=== PATIENT | male | born 1950 | race Caucasian/White ===

== ENCOUNTER → 2020-02-22 09:05 | Outpatient (CLI) | payer MEDICARE, OTHER, SELFPAY ==
[2020-02-22 09:43] LABS: Absolute Lymphocyte Count 2.15 X10^3/uL (0.83-4.51); Absolute Neutrophil Count 10.1 X10^3/uL (2.0-7.7); Basophil# 0.04 X10^3/uL; Basophil% 0.3 % (0-1); Eosinophil# 0.24 X10^3/uL; Eosinophils% 1.8 % (0-5); Hematocrit 40.4 % (40-54); Hemoglobin 12.5 g/dL (13.0-16.5); Lymphocyte # 2.15 X10^3/ul (4.0); Lymphocyte % 16.1 % (19-41); Mean Corp Hgb Conc 30.9 g/dL (32-36); Mean Corpuscular Volume 80.6 fL (80-94); Mean Platelet Vol. 9.8 fl (6.2-12.0); Monocyte# 0.79 X10^3/uL; Monocyte% 5.9 % (0-10); NRBC Flagged by Analyzer 0 % (0-5); Neutrophil # 10.07 X10^3/uL (2.7-7.7); Neutrophil % 75.3 % (47-70); Platelet Count 373 K/mm3 (150-450); RBC Distribution Width CV 14.2 % (11.6-14.6); RBC Distribution Width SD 40.6 fl (35.1-43.9); Red Blood Count 5.01 M/mm3 (4.6-6.2); White Blood Count 13.4 K/mm3 (4.4-11.0)
[2020-02-22 10:00] LABS: Hemoglobin A1c 10.8 % (3.8-5.6)
[2020-02-22 10:22] LABS: ALB/GLOB Ratio 0.9 RATIO (0.9-2.4); AST(SGOT) 11 U/L (15-37); Alanine Aminotransfer ALT/SGPT 19 U/L (16-61); Albumin, Serum 3.7 g/dL (3.2-5.0); Alkaline Phosphatase 84 U/L (45-117); Anion Gap 6 (5-15); BUN 11 mg/dL (7-18); BUN/Creat Ratio 12.6 RATIO (10-20); Calcium,Total 10.1 mg/dL (8.5-10.1); Chloride 100 mmol/L (98-107); Cholesterol 144 mg/dL (200); Creatinine, Serum 0.88 mg/dL (0.70-1.30); EST Glomerular Filtration Rate 92 mL/min (>60); Est Glom Filt Rate - Afr Amer 111 mL/min (>60); Globulin 3.9 g/dL (2.2-4.2); Glucose 173 mg/dL (74-106); High Density Lipoprotein 28 mg/dL; Potassium 3.6 mmol/L (3.5-5.1); Protein, Total 7.6 g/dL (6.4-8.2); Sodium Level 137 mmol/L (136-145); Triglycerides 153 mg/dL; Very Low Density Lipoprotein 31 mg/dL (5-40)
[2020-02-22 10:24] LABS: Vitamin D,25 Hydroxy 65.2 ng/mL
== END ==
PROVIDERS: Referring Provider Family Medicine; Visit Provider Family Medicine
DX: D64.9 Anemia, unspecified (principal); E11.65 Type 2 diabetes mellitus with hyperglycemia; I10 Essential (primary) hypertension; E55.9 Vitamin D deficiency, unspecified; E78.5 Hyperlipidemia, unspecified
CPT/HCPCS: 36415; 80053; 80061; 82306; 83036; 85025

== ENCOUNTER → 2020-06-10 09:00 | Outpatient (CLI) | payer MEDICARE, OTHER, SELFPAY ==
[2020-06-10 10:15] LABS: Absolute Lymphocyte Count 1.81 X10^3/uL (0.83-4.51); Absolute Neutrophil Count 10.9 X10^3/uL (2.0-7.7); Basophil# 0.04 X10^3/uL; Basophil% 0.3 % (0-1); Eosinophil# 0.22 X10^3/uL; Eosinophils% 1.6 % (0-5); Hematocrit 39.7 % (40-54); Hemoglobin 12.1 g/dL (13.0-16.5); Lymphocyte # 1.81 X10^3/ul (0.83-4.51); Lymphocyte % 13.1 % (19-41); Mean Corp Hgb Conc 30.5 g/dL (32-36); Mean Corpuscular Hgb 24.8 pg (27.0-32.0); Mean Corpuscular Volume 81.5 fL (80-94); Mean Platelet Vol. 10.1 fl (6.2-12.0); Monocyte# 0.79 X10^3/uL; Monocyte% 5.7 % (0-10); NRBC Flagged by Analyzer 0 % (0-5); Neutrophil # 10.94 X10^3/uL (2.7-7.7); Neutrophil % 78.9 % (47-70); Platelet Count 397 K/mm3 (150-450); RBC Distribution Width CV 14.5 % (11.6-14.6); Red Blood Count 4.87 M/mm3 (4.6-6.2); White Blood Count 13.9 K/mm3 (4.4-11.0)
[2020-06-10 10:33] LABS: Hemoglobin A1c 10.3 % (3.8-5.6)
[2020-06-10 10:47] LABS: Glucose 161 mg/dL (74-106)
== END ==
DX: I10 Essential (primary) hypertension (principal); E11.65 Type 2 diabetes mellitus with hyperglycemia; D64.9 Anemia, unspecified
CPT/HCPCS: 36415; 82947; 83036; 85025

== ENCOUNTER 2021-01-26 21:38 | Inpatient (IN) | payer MEDICARE, OTHER, SELFPAY ==
[2021-01-26 21:39] VITALS: BP 131/83; PULSE 114; RESP 17; TEMP 35.7; BMI 36.1
--- NOTE | 2021-01-26 22:04 | EKG12_ITS ---
Test Reason : HYPOGLYCEMIA Blood Pressure : / mmHG Vent. Rate : 113 BPM Atrial Rate : 150 BPM P-R Int : 000 ms QRS Dur : 086 ms QT Int : 326 ms P-R-T Axes : 000 074 -25 degrees QTc Int : 447 ms Atrial fibrillation with premature ventricular or aberrantly conducted complexes Abnormal ECG Confirmed by KACEY MAYEN, LEW ([id number]), editor producer JOSE LATHAM ([id number]) on 01/27/2021 11:39:48 AM Referred By: BB Confirmed By:LEW ERAZO MD
[2021-01-26 22:05] LABS: Bedside Glucose 118 mg/dL (70-110)
--- NOTE | 2021-01-26 22:05 | EX.ED.DYSGE1 ---
HPI History of Present Illness Chief Complaint: Hypoglycemia Informant: patient, family and EMS Narrative Narrative: 71-year-old patient who lives alone and has been feeling generally weak for the last couple weeks. He states he has not been feeling well, has had difficulty urinating often, where he feels like he needs to go and sometimes has difficulty getting urine out and other times goes less than he expects, resulting in him going more frequently. As a result his appetite and p.o. intake have been poor. Daughter states he has been unintentionally losing weight. This is all been going on for the last couple weeks, but in addition to this for the last 2 or 3 months he has been having palpitations off and on without chest discomfort, dyspnea, lightheadedness, syncope. He was supposed to go to the hospital to get checked out today, and since he did not respond to phone calls from his daughter, she went 1.5 hours from her house to where he is to check on him and he was unresponsive. EMS was called, his blood sugar was 37, they gave him glucagon and IV dextrose and now he is alert and oriented, awake. He states he is on Glucophage and glimepiride, he has taken his medications as prescribed, he takes his glimepiride once a day and he took it this morning. He states he has not eaten anything tonight or since the morning. He states he goes to the local [facility] clinic infrequently and does not have a PCP. He is vaccinated against COVID-19, and has had no contact with anyone with Covid recently that he knows of. Denies any recent cough or fever/chills. Also patient states on the way here, his right eye started bothering him and it feels like there is something in it, he does not know if or what happened to it. [facility] Medical History (Updated 01/27/21 @ 06:[address] Neo Leone MD) Diabetes Hypertension Home Medications ferrous sulfate 325 mg PO DAILY 01/26/21 [History Last Taken Unknown] glimepiride 8 mg PO DAILY 01/26/21 [History Last Taken Unknown] hydrochlorothiazide 50 mg PO DAILY 01/26/21 [History Last Taken Unknown] lisinopril 20 mg PO BID 01/26/21 [History Last Taken Unknown] metformin 1,000 mg PO BID 01/26/21 [History Last Taken Unknown] metoprolol tartrate 100 mg PO BID 01/26/21 [History Last Taken Unknown] pravastatin 20 mg PO DAILY 01/26/21 [History Last Taken Unknown] Allergy/AdvReac Type Severity Reaction Status Date / Time Unable to Assess Allergy Verified 01/26/21 21:44 Surgical History (Updated 01/27/21 @ 05:[address] Yogi Sneed MD) History of cataract surgery Social History Smoking Status: Former smoker ROS ROS ED Constitutional Constitutional ED: Reports anorexia, weakness and weight loss; Denies chills or fever(s) Eyes Eyes: Reports eye pain and foreign body; Denies change in vision or diplopia ENT ENT ED: Denies rhinorrhea or sore throat Cardiovascular Cardiovascular: Reports palpitations; Denies chest pain Respiratory/Chest Respiratory/Chest: Denies cough or dyspnea Gastrointestinal Gastrointestinal: Denies abdominal pain, diarrhea, nausea or vomiting Genitourinary Genitourinary ED: Reports difficulty urinating; Denies dysuria or hematuria Musculoskeletal Musculoskeletal: Denies back pain or neck pain Integumentary Denies abscess or rash Neurologic Neurologic: Denies headache(s), paresthesias or weakness Psychiatric Psychiatric: Denies anxiety or suicidal thoughts EXAM Physical Exam Const Vital Signs: 01/26/21 21:39 01/26/21 22:18 01/26/21 23:30 Temperature 96.2 F L Temperature Source Pulse Rate 114 H 119 H Respiratory Rate 17 18 Blood Pressure 131/83 H 84/64 L Blood Pressure Mean 99 70 Pulse Ox 92 Oxygen Delivery Method Room Air Nasal Cannula Room Air 01/27/21 00:24 01/27/21 01:33 01/27/21 02:00 Temperature 97.9 F 97.9 F 97.8 F Temperature Source Oral Oral Oral Pulse Rate 117 H 120 H 117 H Respiratory Rate 20 H 22 H 20 H Blood Pressure 89/43 L 102/89 H 78/63 L Blood Pressure Mean 58 93 68 Pulse Ox 93 95 96 Oxygen Delivery Method Room Air Room Air Room Air 01/27/21 04:01 01/27/21 05:10 01/27/21 05:20 Temperature 97.8 F Temperature Source Temporal Pulse Rate 119 H 127 H 120 H Respiratory Rate 17 22 H 16 Blood Pressure 172/140 H 79/52 L 82/51 L Blood Pressure Mean 150 61 61 Pulse Ox 99 Oxygen Delivery Method Room Air 01/27/21 05:50 Temperature 98.2 F Temperature Source Oral Pulse Rate 118 H Respiratory Rate 24 H Blood Pressure 81/58 L Blood Pressure Mean 65 Pulse Ox 90 Oxygen Delivery Method Room Air Positive well nourished and well developed General Appearance ED: well developed and NAD HEENT Reports dry mucous membranes normocephalic and atraumatic Mouth ED: Yes dry mucous membranes Mouth: dry mucous membranes Throat: posterior oropharynx normal Eyes PERRL and EOMs intact bilaterally Neck full ROM, no lymphadenopathy, supple, no meningeal signs and no JVD Resp normal respiratory effort and clear to auscultation bilaterally Cardio no murmurs Rate: tachycardic Rhythm: abnormal rhythm irregularly irregular GI non-tender and non-distended Auscultation: normoactive bowel sounds Palpation: soft Back/Spine no CVA tenderness General Back: other FROM Extremity normal to inspection General Extremety ED: Negative for edema, pulses abnormal or tenderness General Extremity: Negative for edema or pulses abnormal Neuro oriented x3, CN's II-XII intact bilaterally and no sensory deficits noted Sensorium / Orientation: awake and alert Motor Exam: strength 5/5 throughout Skin no rashes or lesions noted and no wounds MDM MDM MDM Narrative Medical decision making narrative: Patient has a significant leukocytosis, however his chest x-ray is clear, 1 view on my interpretation, patient has not yet urinated. Given his lower abdominal discomfort and tenderness and urinary symptoms I am suspicious of a possible urinary tract infection but need a specimen prior to starting antibiotics given that he qualifies for sepsis. Given his renal failure, we did not give him a lot of IV fluids. He is clinically and hemodynamically stable, however is hyperkalemic from his acute renal failure which he does not have a known history of. I treated his hyperkalemia with insulin, glucose, albuterol, and discussed with nephrology Dr. Covarrubias, who advised placing a Cuello and he agrees that he will not require emergency dialysis tonight, he will see him first thing in the morning. Will discuss with hospitalist for admission. Patient's urinalysis returned looking infected, which would explain his suprapubic tenderness. Rocephin ordered. Similar to this timeframe, his blood pressure returned lower, 89/43, patient still mentating well mildly tachycardic in atrial fibrillation that is new for him. We bolused him with more fluid, watching his respiratory status closely. His blood pressure improved with this to 102/89, but had a couple of transient drops to the 80s. While in the emergency department he did not require pressors, as he did respond to fluids but given multiple episodes of hypotension, central line was placed in case pressors do become needed. After that he remained hypertensive and keenly alert until we sat him on the side of the bed to do a slit-lamp exam, then remained borderline 82/51 although he is keenly alert and mentating well. His repeat lactate came back down to normal, 1.0. He was given IV fluid boluses, however we stop short of 30 cc/kg mainly because of his uremia and renal failure, we were given him fluid cautiously so as to prevent further third spacing and pulmonary edema, he already had evidence of third spacing in his extremities prior to treating him with fluids. Bacitracin ophthalmic ointment placed in his right eye for the abrasion which can be monitored clinically, he can follow-up in 4-5 days if either still having eye pain or trouble with vision. With pressure remaining in 80's now and the fact that pt was responding to fluids each time he was hypotensive, another liter of normal saline is bolused. With less than 25% of the liter still left, his pressure is 81, and Levophed is being started as a result. Lab Data Attestation: I reviewed the patient's lab results. Labs: Laboratory Results - last 24 hr 01/26/21 01/26/21 01/26/21 21:45 21:45 21:58 WBC 39.4 H* RBC 4.62 Hgb 12.5 L Hct 38.5 L MCV 83.3 MCH 27.1 MCHC 32.5 RDW Std Deviation 44.5 H RDW Coeff of Flaco 14.7 H Plt Count 490 H MPV 9.3 Immature Gran % (Auto) 2.100 H Neut % (Auto) 91.9 H Lymph % (Auto) 2.3 L Bonner % (Auto) 3.6 Eos % (Auto) 0.0 Baso % (Auto) 0.1 Absolute Neuts (auto) 36.2 H Absolute Lymphs (auto) 0.90 Nucleated RBC % 0 Differential Comment SEE COMMENTS Diff Path Review May foll Platelet Estimate SLT INC RBC Morphology NORM C+C PT INR APTT Sodium 128 L Potassium 5.5 H Chloride 95 L Carbon Dioxide 15.0 L Anion Gap 18 H BUN 116 H* Creatinine 7.75 H* Estim Creat Clear Calc 8.29 Est GFR (MDRD) Af Amer 9 L Est GFR (MDRD) Non-Af 7 L BUN/Creatinine Ratio 15.0 Glucose 125 H Lactic Acid Calcium 10.3 H Magnesium Total Bilirubin 1.00 AST 26 ALT 28 Alkaline Phosphatase 129 H Troponin I High Sens 25 Total Protein 7.9 Albumin 2.3 L Globulin 5.6 H Albumin/Globulin Ratio 0.4 L Urine Color Urine Clarity Urine pH Ur Specific [place] Urine Protein Urine Glucose (UA) Urine Ketones Urine Occult Blood Urine Nitrite Urine Bilirubin Urine Urobilinogen Ur Leukocyte Esterase Urine RBC Urine WBC Ur Squamous Epith Cells Urine Bacteria Urine Mucus POC Glucose 118 H 01/26/21 01/26/21 01/27/21 22:45 22:45 00:14 WBC RBC Hgb Hct MCV MCH MCHC RDW Std Deviation RDW Coeff of Flaco Plt Count MPV Immature Gran % (Auto) Neut % (Auto) Lymph % (Auto) Bonner % (Auto) Eos % (Auto) Baso % (Auto) Absolute Neuts (auto) Absolute Lymphs (auto) Nucleated RBC % Differential Comment Diff Path Review Platelet Estimate RBC Morphology PT 21.2 H INR 1.9 APTT 43.7 H Sodium Potassium Chloride Carbon Dioxide Anion Gap BUN Creatinine Estim Creat Clear Calc Est GFR (MDRD) Af Amer Est GFR (MDRD) Non-Af BUN/Creatinine Ratio Glucose Lactic Acid 2.2 H* Calcium Magnesium Total Bilirubin AST ALT Alkaline Phosphatase Troponin I High Sens Total Protein Albumin Globulin Albumin/Globulin Ratio Urine Color Brown Urine Clarity Turbid Urine pH 6.0 Ur Specific [place] 1.025 Urine Protein 100 H Urine Glucose (UA) Normal Urine Ketones 5 H Urine Occult Blood 150 H Urine Nitrite Negative Urine Bilirubin Negative Urine Urobilinogen Normal Ur Leukocyte Esterase 500 H Urine RBC > 100 SEEN Urine WBC >100 SEEN Ur Squamous Epith Cells 0 SEEN Urine Bacteria 3+ Urine Mucus 0 SEEN POC Glucose 01/27/21 01/27/21 01/27/21 03:25 04:48 04:50 WBC RBC Hgb Hct MCV MCH MCHC RDW Std Deviation RDW Coeff of Flaco Plt Count MPV Immature Gran % (Auto) Neut % (Auto) Lymph % (Auto) Bonner % (Auto) Eos % (Auto) Baso % (Auto) Absolute Neuts (auto) Absolute Lymphs (auto) Nucleated RBC % Differential Comment Diff Path Review Platelet Estimate RBC Morphology PT INR APTT Sodium 133 L Potassium 4.3 Chloride 101 Carbon Dioxide 17.0 L Anion Gap 15 BUN 108 H* Creatinine 7.25 H Estim Creat Clear Calc 8.86 Est GFR (MDRD) Af Amer 10 L Est GFR (MDRD) Non-Af 8 L BUN/Creatinine Ratio 14.9 Glucose 45 L Lactic Acid 1.0 Calcium 8.7 Magnesium Total Bilirubin AST ALT Alkaline Phosphatase Troponin I High Sens Total Protein Albumin Globulin Albumin/Globulin Ratio Urine Color Urine Clarity Urine pH Ur Specific [place] Urine Protein Urine Glucose (UA) Urine Ketones Urine Occult Blood Urine Nitrite Urine Bilirubin Urine Urobilinogen Ur Leukocyte Esterase Urine RBC Urine WBC Ur Squamous Epith Cells Urine Bacteria Urine Mucus POC Glucose 28 L* 01/27/21 01/27/21 04:50 05:17 WBC RBC Hgb Hct MCV MCH MCHC RDW Std Deviation RDW Coeff of Flaco Plt Count MPV Immature Gran % (Auto) Neut % (Auto) Lymph % (Auto) Bonner % (Auto) Eos % (Auto) Baso % (Auto) Absolute Neuts (auto) Absolute Lymphs (auto) Nucleated RBC % Differential Comment Diff Path Review Platelet Estimate RBC Morphology PT INR APTT Sodium Potassium Chloride Carbon Dioxide Anion Gap BUN Creatinine Estim Creat Clear Calc Est GFR (MDRD) Af Amer Est GFR (MDRD) Non-Af BUN/Creatinine Ratio Glucose Lactic Acid Calcium Magnesium 1.6 Total Bilirubin AST ALT Alkaline Phosphatase Troponin I High Sens Total Protein Albumin Globulin Albumin/Globulin Ratio Urine Color Urine Clarity Urine pH Ur Specific [place] Urine Protein Urine Glucose (UA) Urine Ketones Urine Occult Blood Urine Nitrite Urine Bilirubin Urine Urobilinogen Ur Leukocyte Esterase Urine RBC Urine WBC Ur Squamous Epith Cells Urine Bacteria Urine Mucus POC Glucose 61 L Radiography Chest X-Ray - ED: 1 View, Read by ED Physician and No Acute Disease Diagnostic Testing: Clinical Impression(s) from Imaging Studies Chest X-Ray 01/26/21 22:55 IMPRESSION: No radiographic evidence of acute cardiopulmonary disease. Electronically Signed: Davis Blood MD at 1:02 EST Tel , Service support , Chest X-Ray 01/27/21 02:52 IMPRESSION: Appropriate positioning of right-sided central venous catheter without evidence for pneumothorax. Electronically Signed: Dixie Luz MD at 3:58 EST , Service support , Rhythm Strip Rhythm Strip: A-fib Rate: 110 Ectopy: PVC(s) EKG Initial EKG: Attestation: I personally reviewed and interpreted this EKG as follows: Interpretation: No Acute Injury Pattern and Atrial Fibrillation Comments: freq PVCs early transition. mildly peaked Ts. narrow QRS. Prior: No Prior Procedures Other Procedures Procedure(s): Central line placement: After informed consent discussing risk and benefits from patient and daughter, right subclavian vein area was prepped and draped in a sterile fashion, and found on second attempt using a finder needle after using 4 cc local 1% lidocaine for anesthesia locally. Triple-lumen catheter 20 cm placed via modified Seldinger technique, there were no complications and the line placement was tolerated well by the patient. All 3 ports desmond back dark red blood nonpulsatile, flushed easily. Confirmed good placement with chest x-ray. No complications. Slit lamp exam/foreign material removal right eye: After topical tetracaine and staining with fluorescein, central broad-based corneal abrasion is noted along with some mucus versus loosened corneal cells that were removed gently from conjunctival surface with sterile cotton swab. Critical Care Time Critical Care Time: Yes Critical care time (excluding procedures): 75-104 minutes (75 min), Including time spent:, Discussing w/Patient &/or Family/Insole Tack Puller Hand, Discussing w/Consultants, Arranging Admission or Transfer and Performing Direct Patient Care at Bedside Discharge Plan Dx/Rx/DC Orders Clinical Impression: Septic shock, Acute renal failure, Uremia of renal origin, Hyperkalemia, diminished renal excretion, Acute hyponatremia, Hypoglycemia associated with type 2 diabetes mellitus, Sepsis secondary to UTI, Atrial fibrillation, Transient hypotension, Abrasion of cornea, right Disposition Disposition: [facility]
[2021-01-26 22:11] LABS: Absolute Neutrophil Count 36.2 X10^3/uL (2.0-7.7); Basophil# 0.02 X10^3/uL; Basophil% 0.1 % (0-1); Eosinophil# 0.01 X10^3/uL; Hematocrit 38.5 % (40-54); Hemoglobin 12.5 g/dL (13.0-16.5); Lymphocyte % 2.3 % (19-41); Mean Corp Hgb Conc 32.5 g/dL (32-36); Mean Corpuscular Hgb 27.1 pg (27.0-32.0); Mean Corpuscular Volume 83.3 fL (80-94); Mean Platelet Vol. 9.3 fl (6.2-12.0); Monocyte# 1.42 X10^3/uL; Monocyte% 3.6 % (0-10); NRBC Flagged by Analyzer 0 % (0-5); Neutrophil # 36.23 X10^3/uL (2.7-7.7); Neutrophil % 91.9 % (47-70); POSITIVE COUNT YES; POSITIVE DIFFERENTIAL YES; POSITIVE MORPHOLOGY YES; Platelet Count 490 K/mm3 (150-450); RBC Distribution Width CV 14.7 % (11.6-14.6); RBC Distribution Width SD 44.5 fl (35.1-43.9); Red Blood Count 4.62 M/mm3 (4.6-6.2)
[2021-01-26 22:14] LABS: Differential Indicated SCAN CRITERIA MET
[2021-01-26 22:16] LABS: White Blood Count 39.4 K/mm3 (4.4-11.0)
[2021-01-26 22:38] LABS: Differential Comment SEE COMMENTS; Platelet Estimate SLT INC (ADEQ); Red Cell Morphology NORM C+C NORMAL (NORM C&C)
[2021-01-26 22:39] LABS: ALB/GLOB Ratio 0.4 RATIO (0.9-2.4); AST(SGOT) 26 U/L (15-37); Alanine Aminotransfer ALT/SGPT 28 U/L (16-61); Albumin, Serum 2.3 g/dL (3.2-5.0); Alkaline Phosphatase 129 U/L (45-117); Anion Gap 18 (5-15); BUN 116 mg/dL (7-18); Calcium,Total 10.3 mg/dL (8.5-10.1); Chloride 95 mmol/L (98-107); Creatinine, Serum 7.75 mg/dL (0.70-1.30); EST Glomerular Filtration Rate 7 mL/min (>60); Est Glom Filt Rate - Afr Amer 9 mL/min (>60); Estimated Creatinine Clearance 8.29 ml/min; Globulin 5.6 g/dL (2.2-4.2); Glucose 125 mg/dL (74-106); Potassium 5.5 mmol/L (3.5-5.1); Protein, Total 7.9 g/dL (6.4-8.2); Sodium Level 128 mmol/L (136-145); Troponin-I HS 25 pg/mL (3.0-78.0)
--- NOTE | 2021-01-26 22:55 | RAD_ITS ---
EXAM: XR CHEST, 1 VIEW CLINICAL INDICATION: weakness TECHNIQUE: Frontal view of the chest. This report was created using [employer] report generation technology. COMPARISON: None. FINDINGS: LUNGS AND PLEURAL SPACES: Unremarkable. No consolidation or edema. No pneumothorax. No effusion. HEART: Unremarkable. Cardiac silhouette not enlarged. MEDIASTINUM: Central airways and mediastinal contour are unremarkable. BONES/JOINTS: Degenerative changes of the acromioclavicular joints and spine. SOFT TISSUES: Unremarkable. RAD/Chest 1 View (Portable) IMPRESSION: No radiographic evidence of acute cardiopulmonary disease. Electronically Signed: Davis Blood MD at 1:02 EST Tel , Service support ,
[2021-01-26 23:09] LABS: International Normalized Ratio 1.9; Prothrombin Time (Protime)PT. 21.2 SECONDS (11.7-14.9)
[2021-01-26 23:10] LABS: Partial Thromboplast Time 43.7 Seconds (24.1-36.2)
[2021-01-26 23:30] VITALS: BP 84/64; PULSE 119; RESP 18; O2SAT 92
[2021-01-26 23:31] LABS: Lactic Acid 2.2 mmol/L (0.4-1.9)
[2021-01-27] VITALS (42 sets, daily range): BP systolic 76–172; BP diastolic 37–140; PULSE 110–127; RESP 16–29; TEMP 36.4–37.7; O2SAT 85–99; BMI 34.7
[2021-01-27] MEDS: Dextrose 50%-Water 25 GM/50 ML DISP.SYRIN IV ×3 (00:21→08:24)
[2021-01-27] MEDS: 0.9% Normal Saline 1,000 ML 250 ML IV ×2 (00:22→04:58)
[2021-01-27] MEDS: Insulin Lispro 10 UNIT in Syringe 0 ML 6 UNIT IV (00:22)
[2021-01-27 00:27] LABS: Mucous, Urine 0 SEEN /hpf (<or=2+); Squamous Epithelial Cells - UA 0 SEEN /hpf (0-5)
[2021-01-27 00:28] LABS: Color, Urine Brown (Yellow); Glucose, Dipstick Normal (Normal); Ketone-Dipstick 5 mg/dl (Negative); Leukocyte Esterase-Dipstick 500 /ul (Negative); Nitrite-Dipstick Negative (Negative); Occult Blood-Urine 150 /ul (Negative); Protein-Dipstick 100 mg/dl (Negative); Specific Gravity, Urine 1.025 (1.002-1.030); Urine Bilirubin Dipstick Negative (Negative); Urine Clarity Turbid (Clear); Urine Urobilinogen Normal (Normal)
[2021-01-27 00:50] LABS: Bacteria 3+ /hpf (None Seen); Red Blood Cells-Urine > 100 SEEN /hpf (0-5); White Blood Cells >100 SEEN /hpf (0-5)
[2021-01-27] MEDS: Ceftriaxone 1 GM/50 ML BAG IV ×2 (01:07→12:06)
[2021-01-27] MEDS: 0.9% Normal Saline 1,000 ML 999 ML IV ×3 (01:07→06:43)
--- NOTE | 2021-01-27 02:52 | RAD_ITS ---
STUDY: X-RAY CHEST REASON FOR EXAM: Male, 71 years old patient with central venous line placement. TECHNIQUE: Single AP portable view of the chest. COMPARISON: Chest radiograph dated 01/26/2021. FINDINGS: Right-sided central venous catheter is present with subclavian vein and tip of the catheter is in the superior vena cava. The lungs are clear and expanded. There is no demonstrated pleural abnormality. There is mild cardiac enlargement. Normal mediastinum and medardo. There is prominence of the pulmonary hilar arteries without peripheral pulmonary vascular congestion, suggesting pulmonary hypertension. There is atherosclerotic tortuosity of the aortic arch and descending thoracic aorta. Normal visualized thoracic spine. Normal visualized ribs, clavicles, and shoulders. There is no demonstrated abnormality of the visualized soft tissue structures of the upper abdomen. RAD/CXR for Line Placement IMPRESSION: Appropriate positioning of right-sided central venous catheter without evidence for pneumothorax. Electronically Signed: Dixie Luz MD at 3:58 EST , Service support ,
[2021-01-27 02:54] LABS: Reflex Lactate? Y
[2021-01-27 04:55] LABS: Bedside Glucose 28 mg/dL (70-110)
[2021-01-27] MEDS: Tetracaine 0.5% Ophthalmic Bottle 1 DRP RIGHT EYE (05:13)
[2021-01-27] MEDS: Fluorescein 1 MG STRIP 1 STRIP RIGHT EYE (05:13)
[2021-01-27 05:26] LABS: Bedside Glucose 61 mg/dL (70-110)
[2021-01-27 05:32] LABS: Anion Gap 15 (5-15); BUN 108 mg/dL (7-18); BUN/Creat Ratio 14.9 RATIO (10-20); Calcium,Total 8.7 mg/dL (8.5-10.1); Chloride 101 mmol/L (98-107); Creatinine, Serum 7.25 mg/dL (0.70-1.30); EST Glomerular Filtration Rate 8 mL/min (>60); Est Glom Filt Rate - Afr Amer 10 mL/min (>60); Estimated Creatinine Clearance 8.86 ml/min; Glucose 45 mg/dL (74-106); Potassium 4.3 mmol/L (3.5-5.1); Sodium Level 133 mmol/L (136-145)
--- NOTE | 2021-01-27 05:37 | HP.PCM.HOS_ITS ---
HPI - General General Date of Admission: 01/27/21 HPI Narrative BLAYNE ABDI, is a 71 M with a significant history of diabetes mellitus and hypertension who presents to emergency department with unresponsiveness. Reportedly graphics coordinator broke into his home. He was found to have passed out and paramedics brought him to the hospital. Reportedly his blood glucose was 37 and he was given dextrose and glucagon which he responded to. He reports a 2 to 3- week history of diarrhea. He report that in the day he has between 4-6 loose stools are. Also he reports urinary retention causing him to frequently try and urinates. He reports poor appetite going of about 3 weeks. He reports fatigue and weakness. Reports subjective fever. He reports chills and malaise. He has lost about 20 pounds in the past 3 weeks. He has poor appetite. FORMERLY [facility], [facility] Medical History (Updated 01/27/21 @ 06:[address] Neo Leone MD) Diabetes Hypertension Home Medications ferrous sulfate 325 mg PO DAILY 01/26/21 [History Last Taken Unknown] glimepiride 8 mg PO DAILY 01/26/21 [History Last Taken Unknown] hydrochlorothiazide 50 mg PO DAILY 01/26/21 [History Last Taken Unknown] lisinopril 20 mg PO BID 01/26/21 [History Last Taken Unknown] metformin 1,000 mg PO BID 01/26/21 [History Last Taken Unknown] metoprolol tartrate 100 mg PO BID 01/26/21 [History Last Taken Unknown] pravastatin 20 mg PO DAILY 01/26/21 [History Last Taken Unknown] Allergy/AdvReac Type Severity Reaction Status Date / Time Unable to Assess Allergy Verified 01/26/21 21:44 Surgical History (Updated 01/27/21 @ 05:[address] Yogi Sneed MD) History of cataract surgery Social History Smoking Status: Former smoker ROS ROS Narrative Constitutional: Reports subjective fever and chills. Reports fatigue, anorexia and change in weight. He has lost about 20 pounds in 3 weeks. Eyes: Reports erythema of right eye. HEENT: Denies abnormal hearing, dysphagia, ear pain, epistaxis, headache(s), hearing loss, nasal congestion, nasal discharge, post nasal drip, sinus pressure, sore throat or other Cardiovascular: Reports intermittent palpitations. Denies dyspnea on exertion, orthopnea and paroxysmal nocturnal dyspnea Respiratory/Chest: Denies cough, excessive phlegm production, shortness of breath with exertion and wheezing Gastrointestinal: Reports diarrhea. Denies coffee ground emesis, constipation, diarrhea, dyspepsia, hematemesis, hematochezia, loose stools, melena, nausea, vomiting or other Genitourinary: Reports dysuria and urinary retention. Denies hematuria. Musculoskeletal: Denies arthralgias, back pain, joint pain, joint stiffness, joint swelling, myalgias, neck pain or other Neurologic: Denies abnormal gait, abnormal speech, confusion, disequilibrium, dizziness, focal weakness, headache(s), numbness, paresthesias, seizure-like activity, seizures, syncope, tingling, tremor(s) or other Psychiatric: Denies anxiety, depression, homicidal ideation, suicidal ideation or other Endocrinology: Denies change in body appearance, cold intolerance, excessive sweating, heat intolerance, polydipsia, polyuria or other Hematologic/Lymphatic: Denies anemia, easy bleeding, easy bruising, lymphadenopathy or other Integumentary: Denies rashes Allergic/Immunologic: Denies rhinitis, hives, eczema, asthma or other Vital Signs Vital Signs Vital Signs: 01/26/21 21:39 01/26/21 22:18 01/26/21 23:30 Temperature 96.2 F L Temperature Source Pulse Rate 114 H 119 H Respiratory Rate 17 18 Blood Pressure 131/83 H 84/64 L Blood Pressure Mean 99 70 Pulse Ox 92 Oxygen Delivery Method Room Air Nasal Cannula Room Air 01/27/21 00:24 01/27/21 01:33 01/27/21 02:00 Temperature 97.9 F 97.9 F 97.8 F Temperature Source Oral Oral Oral Pulse Rate 117 H 120 H 117 H Respiratory Rate 20 H 22 H 20 H Blood Pressure 89/43 L 102/89 H 78/63 L Blood Pressure Mean 58 93 68 Pulse Ox 93 95 96 Oxygen Delivery Method Room Air Room Air Room Air 01/27/21 04:01 01/27/21 05:10 01/27/21 05:20 Temperature 97.8 F Temperature Source Temporal Pulse Rate 119 H 127 H 120 H Respiratory Rate 17 22 H 16 Blood Pressure 172/140 H 79/52 L 82/51 L Blood Pressure Mean 150 61 61 Pulse Ox 99 Oxygen Delivery Method Room Air Weight Weight: 104.6 kg Body Mass Index (BMI) 36.1 Physical Exam Narrative Physical exam: General: Well-nourished, well-developed. Head: Normocephalic, atraumatic, no tenderness Eyes: PERRLA, EOMI ENT, no trauma, moist mucous membranes, no rhinorrhea Neck: Nontender, full range of motion, no spinal tenderness, deformities, step- off CVS: Irregularly irregular rate and rhythm. S1-S2 present. No murmur, gallop or rub. Respiratory : clear to auscultation bilaterally, chest wall nontender, no wheezing Abdomen: Soft, nontender, nondistended, normal bowel sounds, no masses : Deferred Back: Nontender, no CVA tenderness, no midline spinal tenderness, deformities, step-offs Extremities: Nontender full range of motion, no trauma Skin: Normal color, no trauma, abrasions Neuro: Alert, oriented, cranial nerves II through XII grossly intact. Psychiatry: Normal mood. Normal affect. Not depressed. Not anxious. Results Lab / Micro Data Result Diagrams: 01/26/21 21:45 01/27/21 04:50 Labs: Laboratory Results - last 24 hr 01/26/21 21:45: WBC 39.4 H*, RBC 4.62, Hgb 12.5 L, Hct 38.5 L, MCV 83.3, MCH 27.1, MCHC 32.5, RDW Std Deviation 44.5 H, RDW Coeff of Flaco 14.7 H, Plt Count 490 H, MPV 9.3, Immature Gran % (Auto) 2.100 H, Neut % (Auto) 91.9 H, Lymph % (Auto) 2.3 L, [place] % (Auto) 3.6, Eos % (Auto) 0.0, Baso % (Auto) 0.1, Absolute Neuts (auto) 36.2 H, Absolute Lymphs (auto) 0.90, Nucleated RBC % 0, Differential Comment SEE COMMENTS, Diff Path Review May linda, Platelet Estimate SLT INC, RBC Morphology NORM C+C 01/26/21 21:45: Sodium 128 L, Potassium 5.5 H, Chloride 95 L, Carbon Dioxide 15.0 L, Anion Gap 18 H, BUN 116 H*, Creatinine 7.75 H*, Estim Creat Clear Calc 8.29, Est GFR (MDRD) Af Amer 9 L, Est GFR (MDRD) Non-Af 7 L, BUN/Creatinine Ratio 15.0, Glucose 125 H, Calcium 10.3 H, Total Bilirubin 1.00, AST 26, ALT 28, Alkaline Phosphatase 129 H, Troponin I High Sens 25, Total Protein 7.9, Albumin 2.3 L, Globulin 5.6 H, Albumin/Globulin Ratio 0.4 L 01/26/21 21:58: POC Glucose 118 H 01/26/21 22:45: PT 21.2 H, INR 1.9, APTT 43.7 H 01/26/21 22:45: Lactic Acid 2.2 H* 01/27/21 00:14: Urine Color Brown, Urine Clarity Turbid, Urine pH 6.0, Ur Specific [place] 1.025, Urine Protein 100 H, Urine Glucose (UA) Normal, Urine Ketones 5 H, Urine Occult Blood 150 H, Urine Nitrite Negative, Urine Bilirubin Negative, Urine Urobilinogen Normal, Ur Leukocyte Esterase 500 H, Urine RBC > 100 SEEN, Urine WBC >100 SEEN, Ur Squamous Epith Cells 0 SEEN, Urine Bacteria 3+, Urine Mucus 0 SEEN 01/27/21 03:25: Lactic Acid 1.0 01/27/21 04:48: POC Glucose 28 L* 01/27/21 04:50: Sodium 133 L, Potassium 4.3, Chloride 101, Carbon Dioxide 17.0 L , Anion Gap 15, BUN 108 H*, Creatinine 7.25 H, Estim Creat Clear Calc 8.86, Est GFR (MDRD) Af Amer 10 L, Est GFR (MDRD) Non-Af 8 L, BUN/Creatinine Ratio 14.9, Glucose 45 L, Calcium 8.7 01/27/21 05:17: POC Glucose 61 L Micro: Microbiology 01/26/21 22:50 Nasal Secretion SARS-CoV-2 Antigen (Rapid) - Final Rhythm Strip Rhythm Strip: A-fib Rate: 110 Ectopy: PVC(s) Radiology Impression Chest X-Ray 01/26/21 22:55 IMPRESSION: No radiographic evidence of acute cardiopulmonary disease. Electronically Signed: Davis Blood MD at 1:02 EST Tel , Service support , Chest X-Ray 01/27/21 02:52 IMPRESSION: Appropriate positioning of right-sided central venous catheter without evidence for pneumothorax. Electronically Signed: Dixie Luz MD at 3:58 EST , Service support , Assessment & Plan Assessment/Plan (1) Sepsis secondary to UTI: (2) Atrial fibrillation: QUALIFIERS: Atrial fibrillation type: unspecified Qualified Code(s): I48.91 - Unspecified atrial fibrillation (3) Septic shock: (4) Acute renal failure: (5) Hyperkalemia, diminished renal excretion: PLAN: Septic Shock Patient met qSOFA criteria with respiratory rate of at least 22 and encephalopathy (encephalopathy could be secondary to hypoglycemia) Emergent department labs reviewed showed abnormal urinalysis. Source of infecti on urine Organ dysfunction patient with acute kidney injury. Received normal saline 30cc kilogram bolus of ideal body weight with systolic blood pressure less than 90. Started on Levophed infusion at emergency department and continued. Initial lactic acid was 2.2. Follow-up lactic acid normal. Review of labs showed white count of 39.4; with bandemia of 2.1%; with neutrophilia and lymphopenia. Platelet count is 490, likely reactive. Will admit to intensive care unit and will continue ceftriaxone IV. Will consult sand system operator. Trend CBC and BMP. Acute kidney injury His creatinine presentation was 7.75. BUN was 116. His creatinine on 02/21/2009 was 0.88. Emergency plan doctor discussed the case with lead vulcanizing operator; and Cuello catheter was placed at the ED. Nephrology consult. Status post IV hydration and now Levophed drip has been ordered. Will trend BMP. Hyperkalemia Initial potassium was 5.5. Patient was treated for hyperkalemia emergency department. Hyperkalemia resolved. Trend BMP. Diarrhea We'll order stool studies including C. difficile. C. difficile ordered second luis to very high white counts. Atrial fibrillation with rapid ventricular response Check magnesium and TSH. Potassium initially elevated but normalized. [id number] 2 score is more than 1 and patient will be a candidate for anticoagulation especially as for the past few months patient has had int ermittent palpitation. A. fib might have been accentuated by sepsis. Will hold of anticoagulation as patient may be a candidate for dialysis and requiring dialysis catheter. Hypoglycemia Hold all home blood glucose regimen. Check blood glucose every 1 hour. DVT prophylaxis Subcutaneous Lovenox ordered. Other: SCD. Charges/Coding Visit Charges Inpatient E&M: 52625 Init Hosp L3
[2021-01-27 06:34] LABS: Magnesium 1.6 mg/dL (1.6-2.6)
--- NOTE | 2021-01-27 07:19 | SEPSIS_ITS ---
Sepsis Note Physical Exam/Vitals Objective: Chest X-Ray 01/26/21 22:55 IMPRESSION: No radiographic evidence of acute cardiopulmonary disease. Electronically Signed: Davis Blood MD at 1:02 EST Tel , Service support , Chest X-Ray 01/27/21 02:52 IMPRESSION: Appropriate positioning of right-sided central venous catheter without evidence for pneumothorax. Electronically Signed: Dixie Luz MD at 3:58 EST , Service support , Temp Pulse Resp BP Pulse Ox 97.8 F 113 H 21 H 96/60 94 01/27/21 07:08 01/27/21 07:08 01/27/21 07:08 01/27/21 07:08 01/27/21 07:08 01/27/21 01/27/21 01/27/21 05:17 04:50 04:50 WBC RBC Hgb Hct MCV MCH MCHC RDW Std Deviation RDW Coeff of Flaco Plt Count MPV Immature Gran % (Auto) Neut % (Auto) Lymph % (Auto) [place] % (Auto) Eos % (Auto) Baso % (Auto) Absolute Neuts (auto) Absolute Lymphs (auto) Nucleated RBC % Differential Comment Diff Path Review Platelet Estimate RBC Morphology PT INR APTT Sodium 133 L Potassium 4.3 Chloride 101 Carbon Dioxide 17.0 L Anion Gap 15 BUN 108 H* Creatinine 7.25 H Estim Creat Clear Calc 8.86 Est GFR (MDRD) Af Amer 10 L Est GFR (MDRD) Non-Af 8 L BUN/Creatinine Ratio 14.9 Glucose 45 L Lactic Acid Calcium 8.7 Magnesium 1.6 Total Bilirubin AST ALT Alkaline Phosphatase Troponin I High Sens Total Protein Albumin Globulin Albumin/Globulin Ratio Urine Color Urine Clarity Urine pH Ur Specific [place] Urine Protein Urine Glucose (UA) Urine Ketones Urine Occult Blood Urine Nitrite Urine Bilirubin Urine Urobilinogen Ur Leukocyte Esterase Urine RBC Urine WBC Ur Squamous Epith Cells Urine Bacteria Urine Mucus POC Glucose 61 L 01/27/21 01/27/21 01/27/21 04:48 03:25 00:14 WBC RBC Hgb Hct MCV MCH MCHC RDW Std Deviation RDW Coeff of Flaco Plt Count MPV Immature Gran % (Auto) Neut % (Auto) Lymph % (Auto) [place] % (Auto) Eos % (Auto) Baso % (Auto) Absolute Neuts (auto) Absolute Lymphs (auto) Nucleated RBC % Differential Comment Diff Path Review Platelet Estimate RBC Morphology PT INR APTT Sodium Potassium Chloride Carbon Dioxide Anion Gap BUN Creatinine Estim Creat Clear Calc Est GFR (MDRD) Af Amer Est GFR (MDRD) Non-Af BUN/Creatinine Ratio Glucose Lactic Acid 1.0 Calcium Magnesium Total Bilirubin AST ALT Alkaline Phosphatase Troponin I High Sens Total Protein Albumin Globulin Albumin/Globulin Ratio Urine Color Brown Urine Clarity Turbid Urine pH 6.0 Ur Specific [place] 1.025 Urine Protein 100 H Urine Glucose (UA) Normal Urine Ketones 5 H Urine Occult Blood 150 H Urine Nitrite Negative Urine Bilirubin Negative Urine Urobilinogen Normal Ur Leukocyte Esterase 500 H Urine RBC > 100 SEEN Urine WBC >100 SEEN Ur Squamous Epith Cells 0 SEEN Urine Bacteria 3+ Urine Mucus 0 SEEN POC Glucose 28 L* 01/26/21 01/26/21 01/26/21 22:45 22:45 21:58 WBC RBC Hgb Hct MCV MCH MCHC RDW Std Deviation RDW Coeff of Flaco Plt Count MPV Immature Gran % (Auto) Neut % (Auto) Lymph % (Auto) [place] % (Auto) Eos % (Auto) Baso % (Auto) Absolute Neuts (auto) Absolute Lymphs (auto) Nucleated RBC % Differential Comment Diff Path Review Platelet Estimate RBC Morphology PT 21.2 H INR 1.9 APTT 43.7 H Sodium Potassium Chloride Carbon Dioxide Anion Gap BUN Creatinine Estim Creat Clear Calc Est GFR (MDRD) Af Amer Est GFR (MDRD) Non-Af BUN/Creatinine Ratio Glucose Lactic Acid 2.2 H* Calcium Magnesium Total Bilirubin AST ALT Alkaline Phosphatase Troponin I High Sens Total Protein Albumin Globulin Albumin/Globulin Ratio Urine Color Urine Clarity Urine pH Ur Specific [place] Urine Protein Urine Glucose (UA) Urine Ketones Urine Occult Blood Urine Nitrite Urine Bilirubin Urine Urobilinogen Ur Leukocyte Esterase Urine RBC Urine WBC Ur Squamous Epith Cells Urine Bacteria Urine Mucus POC Glucose 118 H 01/26/21 01/26/21 21:45 21:45 WBC 39.4 H* RBC 4.62 Hgb 12.5 L Hct 38.5 L MCV 83.3 MCH 27.1 MCHC 32.5 RDW Std Deviation 44.5 H RDW Coeff of Flaco 14.7 H Plt Count 490 H MPV 9.3 Immature Gran % (Auto) 2.100 H Neut % (Auto) 91.9 H Lymph % (Auto) 2.3 L [place] % (Auto) 3.6 Eos % (Auto) 0.0 Baso % (Auto) 0.1 Absolute Neuts (auto) 36.2 H Absolute Lymphs (auto) 0.90 Nucleated RBC % 0 Differential Comment SEE COMMENTS Diff Path Review May foll Platelet Estimate SLT INC RBC Morphology NORM C+C PT INR APTT Sodium 128 L Potassium 5.5 H Chloride 95 L Carbon Dioxide 15.0 L Anion Gap 18 H BUN 116 H* Creatinine 7.75 H* Estim Creat Clear Calc 8.29 Est GFR (MDRD) Af Amer 9 L Est GFR (MDRD) Non-Af 7 L BUN/Creatinine Ratio 15.0 Glucose 125 H Lactic Acid Calcium 10.3 H Magnesium Total Bilirubin 1.00 AST 26 ALT 28 Alkaline Phosphatase 129 H Troponin I High Sens 25 Total Protein 7.9 Albumin 2.3 L Globulin 5.6 H Albumin/Globulin Ratio 0.4 L Urine Color Urine Clarity Urine pH Ur Specific [place] Urine Protein Urine Glucose (UA) Urine Ketones Urine Occult Blood Urine Nitrite Urine Bilirubin Urine Urobilinogen Ur Leukocyte Esterase Urine RBC Urine WBC Ur Squamous Epith Cells Urine Bacteria Urine Mucus POC Glucose Attestation Sepsis Attestation: Sepsis re-evaluation was performed
--- NOTE | 2021-01-27 07:31 | ECHOD_ITS ---
Reason For Study: AFIB/FLUTTER Procedure This was a 2D Doppler, Color Flow transthoracic echocardiogram. The study was technically difficult. Exam performed portable in ICU/CCU. Left Ventricle Normal left ventricle. The estimated ejection fraction is 55-60 %. Right Ventricle Mildly dilated right ventricle. Normal systolic function. Atria The left atrium is moderately enlarged. Normal right atrium. Mitral Valve There is mild mitral annular calcification. Mild-Moderate (1-2+) mitral valve insufficiency. Tricuspid Valve Normal tricuspid valve. Mild tricuspid valve insufficiency. Aortic Valve Moderate diffuse aortic valve calcification. Mild aortic stenosis. Mild (1+) aortic valve insufficiency. Pulmonic Valve The pulmonic valve is not well visualized. Great Vessels Mildly dilated aortic root. Pericardium/Pleural No pericardial effusion. Medication DEFINITY DEFERRED DUE TO ELEVATED PAP. MMode/2D Measurements & Calculations LVIDd: 3.4 cm IVSd: 1.3 cm LVOT diam: 2.0 cm LVIDs: 2.0 cm LVPWd: 1.3 cm RVDd: 4.4 cm FS: 39.3 % LVOT area: 3.3 cm2 Ao root diam: 4.1 cm LAV(MOD-bp): 60.9 ml LVAd ap4: 27.0 cm2 LAV(MOD-bp) Indexed: 28.8 ml/m2 LVLd ap4: 8.5 cm LAV(MOD-sp2): 58.8 ml EDV(MOD-sp4): 73.9 ml LAV(MOD-sp4): 60.6 ml EDV(sp4-el): 72.3 ml LVAs ap4: 13.0 cm2 LVLs ap4: 7.4 cm ESV(MOD-sp4): 20.4 ml ESV(sp4-el): 19.3 ml EF(MOD-sp4): 72.5 % EF(sp4-el): 73.4 % SV(MOD-sp4): 53.6 ml SV(sp4-el): 53.1 ml Aortic Valve Planimetry: 1.2 cm2 LA A4 area: 21.9 cm2 LA dimension(2D): 5.5 cm RA A4 area: 19.9 cm2 Doppler Measurements & Calculations MV E max luis: 108.5 cm/sec Lat Peak E' Luis: 16.0 cm/sec Med Peak E' Luis: 9.9 cm/sec MV A max luis: 69.2 cm/sec E/E' lat: 6.8 E/E' med: 11.0 MV E/A: 1.6 MV V2 max: 120.4 cm/sec Ao V2 max: 266.6 cm/sec LV V1 max: 154.6 cm/sec MV max P.9 mmHg Ao max P.5 mmHg LV V1 max P.6 mmHg MV V2 mean: 81.6 cm/sec Ao V2 mean: 171.4 cm/sec LV V1 mean P.7 mmHg MV mean P.9 mmHg Ao mean P.6 mmHg LV V1 mean: 99.8 cm/sec MV V2 VTI: 19.1 cm Ao V2 VTI: 34.7 cm LV V1 VTI: 21.4 cm MVA(VTI): 3.6 cm2 GE[place]GET[place](I,D): 2.0 cm2 [place](V,D): 1.9 cm2 SV(LVOT): 69.5 ml TR max luis: 479.2 cm/sec TR max P.9 mmHg ECHO/Echo Complete Interpretation Summary The estimated ejection fraction is 55-60 %. Normal Lv systolic function Severe Pulmonary Hypertension No prior echo to compare Ordering Physician: Yogi Sneed Referring Physician: [facility] Performed By: Valeria Gaming, BLANQUITA, RVT
[2021-01-27 07:51] LABS: Bedside Glucose 41 mg/dL (70-110)
[2021-01-27 08:26] LABS: Bedside Glucose 21 mg/dL (70-110)
--- NOTE | 2021-01-27 08:47 | CON.PCM.CC_ITS ---
Assessment & Plan Assessment/Plan (1) Sepsis secondary to UTI: (2) Hypoglycemia associated with type 2 diabetes mellitus: (3) Acute renal failure: PLAN: RECOMMENDATIONS: 1. Place hemodialysis catheter with urgent hemodialysis 2. Initiate bicarbonate drip 3. Blood sugars every hour 4. Hold all baseline medications 5. Wean pressors as tolerated IMPRESSIONS: 1. Septic shock secondary to UTI Patient's urinary findings are suggestive of an infection. However, patient also appears to have a protracted course. Patient is on empiric antibiotics and pressors. Will wean pressors as tolerated. An element of hypotension likely secondary to metabolic acidosis. 2. Acute kidney injury secondary to problem #1 /hyperkalemia/hyponatremia/non-anion gap metabolic acidosis Patient appears to have significantly delayed presentation by lab results. Patient was discussed with nephrology. A hemodialysis line will be placed. In the interim, patient will be given a bicarbonate drip to help with both metabolic acidosis and hypoglycemia. Clinical suspicion for retention of baseline medications leading to some of the problems at this time. 3. Persistent hypoglycemia in the setting of diabetes mellitus type 2 ([id number]) Patient with relatively normal mental status despite significantly low blood sugars. This indicates that this has likely been somewhat protracted. Clinical suspicion for retention of oral hypoglycemics more than an insulinoma. Patient will be initiated on a bicarbonate drip. Check blood sugars every 1 hour. 4. Obesity/advanced age/poor primary follow-up Complicates care, management, recovery and prognosis. Hold baseline medications for now until condition stabilizes. TIME: 34 minutes critical care time spent addressing patient's acute kidney injury, septic shock, hypoglycemia, review of all data and collaboration with care team HPI Consult Data Date of Consult: 01/27/21 HPI Narrative HPI Narrative: BLAYNE ABDI is a 71 M, with past medical history listed below, who presents to [facility] on January 26, 2021 via EMS secondary to feeling generalized weak for a couple of weeks. Patient reportedly has not felt well for approximately 3 weeks. Patient had decreased urination and diarrhea. Patient's p.o. intake has been poor over this time. Patient is also been reporting unintentional weight loss and intermittent palpitations. Patient readily admits that he should have checked earlier but when he did not respond to telephone calls, his daughter called EMS. Patient readily admits that he does not go to the doctor as he should, but does report that he is vaccinated against COVID-19. In the ER, patient was afebrile, but tachycardic and hypotensive with a low blood pressure of 89/43. Patient has been saturating well on room air. Laboratory work-up showed a white count of 39.4, hemoglobin of 12.5 and platelets of 490. Potassium was elevated to 5.5, BUN of 116 and creatinine of 7.75. Patient's bicarbonate was 15. Patient's glucose at that time was 125. Patient's INR is 1.9 and lactate is 2.2. UA shows significant leukocyte esterase, red blood cells and bacteria. Blood sugar was low as 28. Chest x-ray showed no acute infiltrates. Patient did have a central line placed to facilitate pressors. Patient did not have a dialysis line placed. Rhythm strip showed A. fib with RVR. Since being in the intensive care unit, patient has remained persistently hypoglycemic despite multiple doses of D50. Patient is being placed on a bicarbonate drip. Patient overall feels subjectively unchanged compared to previous. Patient is relatively poor historian, but does report that he last took his diabetic medications yesterday morning. Patient is not aware of any previous renal dysfunction and does not take blood thinners at baseline. Review of systems otherwise negative from a constitutional, HEENT, respiratory, cardiovascular, GI, genitourinary, musculoskeletal, skin, neurologic, psychiatric and hematologic system unless stated above. [facility] Medical History Diabetes Hypertension Home Medications ferrous sulfate 325 mg PO DAILY 01/26/21 [History Last Taken Unknown] glimepiride 8 mg PO DAILY 01/26/21 [History Last Taken Unknown] hydrochlorothiazide 50 mg PO DAILY 01/26/21 [History Last Taken Unknown] lisinopril 20 mg PO BID 01/26/21 [History Last Taken Unknown] metformin 1,000 mg PO BID 01/26/21 [History Last Taken Unknown] metoprolol tartrate 100 mg PO BID 01/26/21 [History Last Taken Unknown] pravastatin 20 mg PO DAILY 01/26/21 [History Last Taken Unknown] Allergy/AdvReac Type Severity Reaction Status Date / Time Unable to Assess Allergy Verified 01/26/21 21:44 Surgical History History of cataract surgery Social History Smoking Status: Former smoker ROS ROS Narrative See HPI Physical Exam Const alert General Appearance: cooperative and ill appearing Nutritional Appearance: obese HEENT normocephalic and head/scalp atraumatic Eyes PERRL, EOMs intact bilaterally and conjunctivae normal Sclera: sclera abnormal Positive for bilateral Details: scleral injection Neck full ROM Lymph Lymphatic: no lymphadenopathy noted Chest inspection of chest normal Resp normal respiratory effort and no use of accessory muscles Effort and Inspection: able to speak in complete sentences Auscultation: clear to auscultation bilaterally; Negative for rales, rhonchi or wheezes Cardio S1 normal heart sound, S2 normal heart sound, no murmurs and no gallops Rate: tachycardic Rhythm: abnormal rhythm irregularly irregular GI normal to inspection, nondistended, normoactive bowel sounds Palpation: Negative for ascites Percussion: Negative for fluid wave Extremity General Extremity: edema; Negative for clubbing Skin no rashes or lesions noted Neuro CN's II-XII intact bilaterally and no focal motor deficits Psych Mood & Affect: anxious Lab / Micro Data Result Diagrams: 01/26/21 21:45 01/27/21 04:50 Labs: Laboratory Results - last 24 hr 01/26/21 21:44: POC Glucose 41 L* 01/26/21 21:45: WBC 39.4 H*, RBC 4.62, Hgb 12.5 L, Hct 38.5 L, MCV 83.3, MCH 27.1, MCHC 32.5, RDW Std Deviation 44.5 H, RDW Coeff of Flaco 14.7 H, Plt Count 490 H, MPV 9.3, Immature Gran % (Auto) 2.100 H, Neut % (Auto) 91.9 H, Lymph % (Auto) 2.3 L, [place] % (Auto) 3.6, Eos % (Auto) 0.0, Baso % (Auto) 0.1, Absolute Neuts (auto) 36.2 H, Absolute Lymphs (auto) 0.90, Nucleated RBC % 0, Differential Comment SEE COMMENTS, Diff Path Review May foll, Platelet Estimate SLT INC, RBC Morphology NORM C+C 01/26/21 21:45: Sodium 128 L, Potassium 5.5 H, Chloride 95 L, Carbon Dioxide 15.0 L, Anion Gap 18 H, BUN 116 H*, Creatinine 7.75 H*, Estim Creat Clear Calc 8.29, Est GFR (MDRD) Af Amer 9 L, Est GFR (MDRD) Non-Af 7 L, BUN/Creatinine Ratio 15.0, Glucose 125 H, Calcium 10.3 H, Total Bilirubin 1.00, AST 26, ALT 28, Alkaline Phosphatase 129 H, Troponin I High Sens 25, Total Protein 7.9, Albumin 2.3 L, Globulin 5.6 H, Albumin/Globulin Ratio 0.4 L 01/26/21 21:58: POC Glucose 118 H 01/26/21 22:45: PT 21.2 H, INR 1.9, APTT 43.7 H 01/26/21 22:45: Lactic Acid 2.2 H* 01/27/21 00:14: Urine Color Brown, Urine Clarity Turbid, Urine pH 6.0, Ur Specific [place] 1.025, Urine Protein 100 H, Urine Glucose (UA) Normal, Urine Ketones 5 H, Urine Occult Blood 150 H, Urine Nitrite Negative, Urine Bilirubin Negative, Urine Urobilinogen Normal, Ur Leukocyte Esterase 500 H, Urine RBC > 100 SEEN, Urine WBC >100 SEEN, Ur Squamous Epith Cells 0 SEEN, Urine Bacteria 3+, Urine Mucus 0 SEEN 01/27/21 03:25: Lactic Acid 1.0 01/27/21 04:48: POC Glucose 28 L* 01/27/21 04:50: Sodium 133 L, Potassium 4.3, Chloride 101, Carbon Dioxide 17.0 L , Anion Gap 15, BUN 108 H*, Creatinine 7.25 H, Estim Creat Clear Calc 8.86, Est GFR (MDRD) Af Amer 10 L, Est GFR (MDRD) Non-Af 8 L, BUN/Creatinine Ratio 14.9, Glucose 45 L, Calcium 8.7 01/27/21 04:50: Magnesium 1.6 01/27/21 05:17: POC Glucose 61 L 01/27/21 08:19: POC Glucose 21 L* Micro: Microbiology 01/26/21 22:50 Nasal Secretion SARS-CoV-2 Antigen (Rapid) - Final Rhythm Strip Rhythm Strip: A-fib Rate: 110 Ectopy: PVC(s) Radiology Impression Chest X-Ray 01/26/21 22:55 IMPRESSION: No radiographic evidence of acute cardiopulmonary disease. Electronically Signed: Davis Blood MD at 1:02 EST Tel , Service support , Chest X-Ray 01/27/21 02:52 IMPRESSION: Appropriate positioning of right-sided central venous catheter without evidence for pneumothorax. Electronically Signed: Dixie Luz MD at 3:58 EST , Service support , Charges/Coding Procedures Hospitalists Procedures: [id number] [facility]st Hr
--- NOTE | 2021-01-27 08:49 | PCS.PANDOC ---
PANDEMIC DOCUMENTATION INITIATED: Date: 10/03/2020 Time: 190
[2021-01-27] MEDS: 0.9% Saline Lock 10 ML Syringe IV ×4 (09:20→21:27)
[2021-01-27 09:36] LABS: Bedside Glucose 80 mg/dL (70-110)
[2021-01-27] MEDS: fentaNYL 100 MCG/2 ML Ampul 50 MCG IV ×5 (10:25→21:27)
[2021-01-27 10:26] LABS: Bedside Glucose 69 mg/dL (70-110)
[2021-01-27] MEDS: Ferrous Sulfate 325 MG Tablet PO (10:26)
[2021-01-27] MEDS: Pravastatin 20 MG Tablet PO (10:26)
--- NOTE | 2021-01-27 10:40 | PCM.PN.HOSP ---
Subjective Subjective Feeling better. Norepinepherine started. Objective Data Objective Data Vital Signs: Vital Signs Temp Pulse Resp BP Pulse Ox 37.1 C 112 H 22 H 93/58 L 90 01/27/21 08:00 01/27/21 08:00 01/27/21 08:00 01/27/21 08:30 01/27/21 08:00 Oxygen Flow Rate (L/min) 4 Oxygen Delivery Method Nasal Cannula Weight: 100.788 kg Body Mass Index (BMI) 34.7 Intake & Output: Intake and Output for Last 24 Hours 01/25/21 01/26/21 01/27/21 23:59 23:59 23:59 Intake Total 5059.40 / 5059.40 Output Total 375 / 375 Balance 4684.40 / 4684.40 Lab / Micro Data Result Diagrams: 01/26/21 21:45 01/27/21 04:50 Labs: Laboratory Results - last 24 hr 01/26/21 21:44: POC Glucose 41 L* 01/26/21 21:45: WBC 39.4 H*, RBC 4.62, Hgb 12.5 L, Hct 38.5 L, MCV 83.3, MCH 27.1, MCHC 32.5, RDW Std Deviation 44.5 H, RDW Coeff of Flaco 14.7 H, Plt Count 490 H, MPV 9.3, Immature Gran % (Auto) 2.100 H, Neut % (Auto) 91.9 H, Lymph % (Auto) 2.3 L, [place] % (Auto) 3.6, Eos % (Auto) 0.0, Baso % (Auto) 0.1, Absolute Neuts (auto) 36.2 H, Absolute Lymphs (auto) 0.90, Nucleated RBC % 0, Differential Comment SEE COMMENTS, Diff Path Review May linda, Platelet Estimate SLT INC, RBC Morphology NORM C+C 01/26/21 21:45: Sodium 128 L, Potassium 5.5 H, Chloride 95 L, Carbon Dioxide 15.0 L, Anion Gap 18 H, BUN 116 H*, Creatinine 7.75 H*, Estim Creat Clear Calc 8.29, Est GFR (MDRD) Af Amer 9 L, Est GFR (MDRD) Non-Af 7 L, BUN/Creatinine Ratio 15.0, Glucose 125 H, Calcium 10.3 H, Total Bilirubin 1.00, AST 26, ALT 28, Alkaline Phosphatase 129 H, Troponin I High Sens 25, Total Protein 7.9, Albumin 2.3 L, Globulin 5.6 H, Albumin/Globulin Ratio 0.4 L 01/26/21 21:58: POC Glucose 118 H 01/26/21 22:45: PT 21.2 H, INR 1.9, APTT 43.7 H 01/26/21 22:45: Lactic Acid 2.2 H* 01/27/21 00:14: Urine Color Brown, Urine Clarity Turbid, Urine pH 6.0, Ur Specific [place] 1.025, Urine Protein 100 H, Urine Glucose (UA) Normal, Urine Ketones 5 H, Urine Occult Blood 150 H, Urine Nitrite Negative, Urine Bilirubin Negative, Urine Urobilinogen Normal, Ur Leukocyte Esterase 500 H, Urine RBC > 100 SEEN, Urine WBC >100 SEEN, Ur Squamous Epith Cells 0 SEEN, Urine Bacteria 3+, Urine Mucus 0 SEEN 01/27/21 03:25: Lactic Acid 1.0 01/27/21 04:48: POC Glucose 28 L* 01/27/21 04:50: Sodium 133 L, Potassium 4.3, Chloride 101, Carbon Dioxide 17.0 L, Anion Gap 15, BUN 108 H*, Creatinine 7.25 H, Estim Creat Clear Calc 8.86, Est GFR (MDRD) Af Amer 10 L, Est GFR (MDRD) Non-Af 8 L, BUN/Creatinine Ratio 14.9, Glucose 45 L, Calcium 8.7 01/27/21 04:50: Magnesium 1.6 01/27/21 05:17: POC Glucose 61 L 01/27/21 08:19: POC Glucose 21 L* 01/27/21 09:03: POC Glucose 80 01/27/21 10:20: POC Glucose 69 L Micro: Microbiology 01/26/21 22:50 Nasal Secretion SARS-CoV-2 Antigen (Rapid) - Final Radiography Diagnostic Testing: Radiology Impression Chest X-Ray 01/26/21 22:55 IMPRESSION: No radiographic evidence of acute cardiopulmonary disease. Electronically Signed: Davis Blood MD at 1:02 EST Tel , Service support , Chest X-Ray 01/27/21 02:52 IMPRESSION: Appropriate positioning of right-sided central venous catheter without evidence for pneumothorax. Electronically Signed: Dixie Luz MD at 3:58 EST , Service support , Rhythm Strip Rhythm Strip: A-fib Rate: 110 Ectopy: PVC(s) Physical Exam Const alert and no apparent distress Resp normal respiratory effort, no retractions, no use of accessory muscles and clear to auscultation bilaterally Cardio regular rate, regular rhythm, S1 normal heart sound and S2 normal heart sound GI normal to inspection, nondistended, normoactive bowel sounds, soft to palpation, non-tender and non-distended Neuro Sensorium / Orientation: awake and alert Assessment & Plan Assessment/Plan (1) Sepsis secondary to UTI: (2) Atrial fibrillation: QUALIFIERS: Atrial fibrillation type: unspecified Qualified Code(s): I48.91 - Unspecified atrial fibrillation (3) Septic shock: (4) Acute renal failure: QUALIFIERS: Acute renal failure type: unspecified Qualified Code(s): N17.9 - Acute kidney failure, unspecified (5) Hyperkalemia, diminished renal excretion: PLAN: 1. Septic Shock 2/2 UTI Patient met qSOFA criteria with respiratory rate of at least 2 and encephalopathy (encephalopathy could be secondary to hypoglycemia) Emergent department labs reviewed showed abnormal urinalysis. Source of infection urine Organ dysfunction patient with acute kidney injury. Received normal saline 30cc kilogram bolus of ideal body weight with systolic blood pressure less than 90. Started on Levophed infusion at emergency department and continued. Initial lactic acid was 2.2. Follow-up lactic acid normal. Review of labs showed white count of 39.4; with bandemia of 2.1%; with neutrophilia and lymphopenia. Platelet count is 490, likely reactive. Will admit to intensive care unit and will continue ceftriaxone IV. Will consult dry cell assembly machine tender. Trend CBC and BMP. On CTX 2. Acute kidney injury His creatinine presentation was 7.75. BUN was 116. His creatinine on 02/21/2009 21 was 0.88. Emergency plan doctor discussed the case with timber inspector; and [place] catheter was placed at the ED. Nephrology consult. Status post IV hydration and now Levophed drip has been ordered. Will trend BMP. 3. Hyperkalemia Initial potassium was 5.5. Resolved Patient was treated for hyperkalemia emergency department. Hyperkalemia resolved. 4. Hypoglycemia ongoing Received D50 this AM monitor glyburide and metformin held 5. Diarrhea We'll order stool studies including C. difficile. C. difficile ordered secondary to very high white counts. 6. Atrial fibrillation with rapid ventricular response Check magnesium and TSH. Potassium initially elevated but normalized. [id number] 2 score is more than 1 and patient will be a candidate for anticoagulation especially as for the past few months patient has had intermittent palpitation. A. fib might have been accentuated by sepsis. Will hold of anticoagulation as patient may be a candidate for dialysis and requiring dialysis catheter. 7. DVT prophylaxis Other: SCD. Charges/Coding Procedures Hospitalists Procedures: Other Procedure - See Report (non-billable rouding as pt admitted after midnight. )
[2021-01-27 11:15] LABS: Bedside Glucose 77 mg/dL (70-110)
[2021-01-27 12:10] LABS: Bedside Glucose 88 mg/dL (70-110)
[2021-01-27] MEDS: Heparin 10,000 UNITS/10 ML Vial 2600 UNITS IV (12:47)
--- NOTE | 2021-01-27 12:55 | RAD_ITS ---
STUDY: X-RAY CHEST REASON FOR EXAM: Male, 71 years old. New temp. Dialysis line TECHNIQUE: Single AP portable view of the chest. COMPARISON: Comparison is made with prior examination dated 01/27/2021 3:03 AM. FINDINGS: A left-sided dialysis catheter has been placed with the tip at the junction of the superior vena cava and right atrium. The remainder of the examination is unchanged. The lungs are clear and expanded. There is no demonstrated pleural abnormality. There is mild cardiac enlargement. Normal mediastinum and medardo. Normal visualized pulmonary arteries. There is atherosclerotic tortuosity of the aortic arch and descending thoracic aorta. There are degenerative changes of the visualized thoracic spine. Normal visualized ribs, clavicles, and shoulders. There is no demonstrated abnormality of the visualized soft tissue structures of the upper abdomen. RAD/CXR for Line Placement IMPRESSION: Status post placement of a left-sided dialysis catheter. The tip is at the junction of the superior vena cava and right atrium. Electronically Signed: Abhay Keene MD at 13:15 EST , Service support ,
--- NOTE | 2021-01-27 12:57 | PCM.OP.BLANK ---
Operative Report Date of Procedure: 01/27/21 Temporary hemodialysis catheter placement procedure note Indication: Hemodialysis Procedure: A time-out was completed to verify correct patient, indication, medication allergies, procedure, coagulation studies, informed consent signed, and equipment needed. The patient was placed in the supine position for a central line placement to the left IJ vein. The patients left neck was prepped using chlorhexidine and a full body sterile drape was applied. 1% lidocaine was used to anesthetize the surrounding skin. A 12 fr 20 cm temporary hemodialysis catheter introduced into the internal jugular vein using the modified Seldinger technique with the assistance of ultrasound. The site was dilated up twice in a stepwise fashion. The catheter was threaded smoothly over the guidewire, the guidewire was removed easily, nonpulsatile blood returned. All ports were aspirated of air and flushed with sterile saline, then locked with you 1000 heparin 1.4 cc to each port. The catheter was sutured in place and covered with an occlusive dressing impregnated with chlorhexidine. Post-procedure: The patient tolerated the procedure well. Vital signs remained stable. EBL 7 cc. No complications. Chest X Ray ordered to confirm tip placement and the absence of pneumothorax. Procedures Hospitalists Procedures: [id number] Insert Non-tunnel CV Cath
[2021-01-27 13:00] LABS: Bedside Glucose 85 mg/dL (70-110)
[2021-01-27 13:02] LABS: Hepatitis B Surface Antigen Non-Reactive (Nonreactive)
--- NOTE | 2021-01-27 13:47 | US_ITS ---
STUDY: RENAL ULTRASOUND - COMPLETE REASON FOR EXAM: Male, 71 years old. Acute kidney injury. TECHNIQUE: Ultrasound evaluation of the kidneys was performed with real-time and static silva-scale imaging. COMPARISON: None. FINDINGS: RIGHT KIDNEY: Normal location of the right kidney, which is enlarged in size. The right kidney measures 13.7 cm. Renal parenchyma appears minimally hyperechoic when compared to the liver. The renal cortex measures 1.9 cm. There is a 0.7 cm cortical cyst in the mid kidney. There is a 1.2 x 0.9 x 0.9 cm septated cyst in the upper pole. Inferiorly there is a 1.4 cm simple cyst. There are no right renal calculi. There is no right hydronephrosis. DISTAL RIGHT URETER: There is non-visualization of the distal right ureter. There is no demonstrated right ureterovesical junction calculus. There is no demonstrated right ureteral jet. LEFT KIDNEY: Normal location of the left kidney, which is enlarged in size. The left kidney measures 13.4 cm. There is a normal cortex of the left kidney. The renal cortex measures 1.8 cm. There is no left renal mass or cyst. There are no left renal calculi. There is no left hydronephrosis. DISTAL LEFT URETER: There is non-visualization of the distal left ureter. There is no demonstrated left ureterovesical junction calculus. There is no demonstrated left ureteral jet. BLADDER: The urinary bladder is collapsed about a MORALES catheter. An incidental finding is the presence of gallstones. US/Kidney and Bladder IMPRESSION: 1. Large kidneys without cortical loss. There is mildly increased echogenicity of the right renal parenchyma when compared to the liver. This may be secondary to medical renal disease. 2. Right renal cyst. One appears septated although size makes it difficult to further evaluate. 3. Inability to evaluate the urinary bladder. The presence of a MORALES catheter. Electronically Signed: Darwin Prabhakar DO at 18:13 EST Tel [phone], Service support ,
--- NOTE | 2021-01-27 13:49 | CON.PCM.RE_ITS ---
Assessment & Plan Assessment/Plan (1) Acute renal failure: QUALIFIERS: Acute renal failure type: unspecified Qualified Code(s): N17.9 - Acute kidney failure, unspecified PLAN: New onset. Last known baseline creatinine is from February 2020 and it was 0.81. History of hypertension, was on lisinopril and hydrochlorothiazide. History of diabetes on Metformin and glipizide. Urine analysis is fairly dirty with leukocytes, RBCs, bacteria. He is currently being treated with ceftriaxone for suspected UTI/pyelonephritis Renal ultrasound ordered. Fontenot catheter in place and is draining dark brown- colored urine. Most likely ATN urine Continue fluid resuscitation Due to advanced acidemia, acidosis, will plan for dialysis today. Dialysis catheter has been placed by ICU team Discussed with dialysis staff Metabolic acidosis. With lactic acidosis. Likely septic shock related. Overall better with fluid resuscitation. He was also on Metformin prior to admission Hypotension. Likely sepsis related. WBC count is fairly high. C. difficile negative. Management as per ICU team (2) Uremia of renal origin: (3) Hyperkalemia, diminished renal excretion: HPI Consult Data Date of Consult: 01/27/21 HPI Narrative HPI Narrative: BLAYNE ABDI, is a 71 M who presents to the hospital with several complaints. Nephrology consulted for acute renal failure. Apparently he goes to [facility] for his medical care. History of hypertension and diabetes. On lisinopril and hydrochlorothiazide for hypertension. On glipizide and Metformin for diabetes. No history of any kidney disease that he knows of. No urinary symptoms. Presented with generalized weakness, diarrhea, abdominal discomfort, nausea. Found to have dense renal failure. Feels somewhat better today. [facility] Medical History Diabetes Hypertension Home Medications ferrous sulfate 325 mg PO DAILY 01/26/21 [History Last Taken Unknown] glimepiride 8 mg PO DAILY 01/26/21 [History Last Taken Unknown] hydrochlorothiazide 50 mg PO DAILY 01/26/21 [History Last Taken Unknown] lisinopril 20 mg PO BID 01/26/21 [History Last Taken Unknown] metformin 1,000 mg PO BID 01/26/21 [History Last Taken Unknown] metoprolol tartrate 100 mg PO BID 01/26/21 [History Last Taken Unknown] pravastatin 20 mg PO DAILY 01/26/21 [History Last Taken Unknown] Allergy/AdvReac Type Severity Reaction Status Date / Time Unable to Assess Allergy Verified 01/26/21 21:44 Surgical History History of cataract surgery Social History Smoking Status: Former smoker ROS ROS Narrative Negative except above Physical Exam Narrative Alert awake oriented x 3 no obvious distress no pallor no icterus no JVD s1s2 no murmurs lungs clear abdomen soft no organomegaly no edema no cyanosis fontneot + Medical Records Data Medical Nutrition Assessment Dietitian: Malnutrition Criteria Met Start: 01/27/21 13:38 Freq: Status: Active Protocol: Document 01/27/21 13:40 RMA (Rec: 01/27/21 13:40 RMA [id number]) Nutrition Malnutrition Evidence of Malnutrition Exists Yes Malnutrition (severe): Acute Illness/Injury Evidenced By Suboptimal Energy Intake ( Severe),Weight Loss (Severe) Clinical Problem Acute Disease or Injury Related Malnutrition Etiology Severe protein-calorie malnutrition in the context of acute disease related to infection, poor appetite, inadequate oral intake Signs/Symptoms as evidenced by poor intake x 3-4 weeks, PO meeting less than 50% estimated nutrition needs and wt loss~10-11% x past month Status Active Problem Recommendation Dietitian Recommendations/Changes General Renal diet; monitor need to restrict carbohydrates . Will add 120ml Nepro supplement TID w/ meals. Will add fortified pudding BID w/ lunch and dinner. Suggest UTILITY TRACTOR OPERATOR evaluation for swallowing as needed. Lab / Micro Data Result Diagrams: 01/26/21 21:45 01/27/21 04:50 Labs: Laboratory Results - last 24 hr 01/26/21 21:44: POC Glucose 41 L* 01/26/21 21:45: WBC 39.4 H*, RBC 4.62, Hgb 12.5 L, Hct 38.5 L, MCV 83.3, MCH 27.1, MCHC 32.5, RDW Std Deviation 44.5 H, RDW Coeff of Flaco 14.7 H, Plt Count 490 H, MPV 9.3, Immature Gran % (Auto) 2.100 H, Neut % (Auto) 91.9 H, Lymph % (Auto) 2.3 L, [place] % (Auto) 3.6, Eos % (Auto) 0.0, Baso % (Auto) 0.1, Absolute Neuts (auto) 36.2 H, Absolute Lymphs (auto) 0.90, Nucleated RBC % 0, Differential Comment SEE COMMENTS, Diff Path Review Elaine mckeon, Platelet Estimate T INC, RBC Morphology NORM C+C 01/26/21 21:45: Sodium 128 L, Potassium 5.5 H, Chloride 95 L, Carbon Dioxide 15.0 L, Anion Gap 18 H, BUN 116 H*, Creatinine 7.75 H*, Estim Creat Clear Calc 8.29, Est GFR (MDRD) Af Amer 9 L, Est GFR (MDRD) Non-Af 7 L, BUN/Creatinine Ratio 15.0, Glucose 125 H, Calcium 10.3 H, Total Bilirubin 1.00, AST 26, ALT 28, Alkaline Phosphatase 129 H, Troponin I High Sens 25, Total Protein 7.9, Albumin 2.3 L, Globulin 5.6 H, Albumin/Globulin Ratio 0.4 L 01/26/21 21:58: POC Glucose 118 H 01/26/21 22:45: PT 21.2 H, INR 1.9, APTT 43.7 H 01/26/21 22:45: Lactic Acid 2.2 H* 01/27/21 00:14: Urine Color Brown, Urine Clarity Turbid, Urine pH 6.0, Ur Specific [place] 1.025, Urine Protein 100 H, Urine Glucose (UA) Normal, Urine Ketones 5 H, Urine Occult Blood 150 H, Urine Nitrite Negative, Urine Bilirubin Negative, Urine Urobilinogen Normal, Ur Leukocyte Esterase 500 H, Urine RBC > 100 SEEN, Urine WBC >100 SEEN, Ur Squamous Epith Cells 0 SEEN, Urine Bacteria 3+, Urine Mucus 0 SEEN 01/27/21 03:25: Lactic Acid 1.0 01/27/21 04:48: POC Glucose 28 L* 01/27/21 04:50: Sodium 133 L, Potassium 4.3, Chloride 101, Carbon Dioxide 17.0 L , Anion Gap 15, BUN 108 H*, Creatinine 7.25 H, Estim Creat Clear Calc 8.86, Est GFR (MDRD) Af Amer 10 L, Est GFR (MDRD) Non-Af 8 L, BUN/Creatinine Ratio 14.9, Glucose 45 L, Calcium 8.7 01/27/21 04:50: Magnesium 1.6 01/27/21 05:17: POC Glucose 61 L 01/27/21 08:19: POC Glucose 21 L* 01/27/21 09:03: POC Glucose 80 01/27/21 10:20: POC Glucose 69 L 01/27/21 11:11: POC Glucose 77 01/27/21 12:05: Hep Bs Antigen Non-Reactive 01/27/21 12:05: POC Glucose 88 01/27/21 12:57: POC Glucose 85 Micro: Microbiology 01/27/21 08:00 Stool Enteric Bacteriology - Final 01/27/21 08:00 Stool C. difficile DNA Amplification - Final 01/26/21 22:50 Nasal Secretion SARS-CoV-2 Antigen (Rapid) - Final Rhythm Strip Rhythm Strip: A-fib Rate: 110 Ectopy: PVC(s) Radiology Impression Chest X-Ray 01/26/21 22:55 IMPRESSION: No radiographic evidence of acute cardiopulmonary disease. Electronically Signed: Davis Blood MD at 1:02 EST Tel , Service support , Chest X-Ray 01/27/21 02:52 IMPRESSION: Appropriate positioning of right-sided central venous catheter without evidence for pneumothorax. Electronically Signed: Dixie Luz MD at 3:58 EST , Service support , Chest X-Ray 01/27/21 12:55 IMPRESSION: Status post placement of a left-sided dialysis catheter. The tip is at the junction of the superior vena cava and right atrium. Electronically Signed: Abhay Keene MD at 13:15 EST , Service support ,
--- NOTE | 2021-01-27 14:37 | CASEMGMT ---
STEVE RIDLEY Face to Face with patient for initial transition planning/care coordination assessment. RN CM introduced self and role at [facility]. Patient lying in bed, alert and oriented. Patient willing to participate in assessment and is able to answer all questions appropriately. Care providers, pharmacy, and demographics verified. Patient wishes to discharge home, will monitor progress with therapy for safe discharge disposition. Patient states he has no further needs or concerns at this time. CM to follow for discharge planning needs that may arise. PCP: Pauline Whitmore Specialists: none Preferred Pharmacy: [facility] retail at discharge Insurance: [facility], [employer] Prescription Benefit: yes Living Will/HPOA: none LNOK: daughter, brother Living Arrangements: Patient lives alone in a bi-level home with 7 steps between levels. Patient states he is independent at home but has been having difficulty with stairs at home. Transportation: Self/brother/daughter DME/HHC: Patient states he has walker and glucometer with testing supplies at home. Patient denies previous HHC or SNF. Patient states he is willing to go to SNF if needed. Will monitor progress with therapy. Disposition Plan: TBD by course of treatment and progress with therapy. Debbie TELLEZ, RN, CM
[2021-01-27 14:41] LABS: Bedside Glucose 103 mg/dL (70-110)
[2021-01-27 16:10] LABS: Bedside Glucose 89 mg/dL (70-110)
[2021-01-27] MEDS: Ondansetron 4 MG/2 ML Vial IV (17:12)
[2021-01-27 18:16] LABS: Bedside Glucose 105 mg/dL (70-110)
[2021-01-27] MEDS: Neomycin/Bacitracin/Polymyxin Opth. Ointment 1 APPLIC RIGHT EYE (19:21)
--- NOTE | 2021-01-27 21:11 | DIALYSIS ---
Pt tolerated 2hr HD tx well. Net UF Even. See flow record for tx data.
[2021-01-27 22:11] LABS: Bedside Glucose 108 mg/dL (70-110)
[2021-01-27 22:11] LABS: Bedside Glucose 111 mg/dL (70-110)
--- NOTE | 2021-01-27 23:29 | PCM.PN.BLA ---
Progress Note Notify the blood culture return gram-positive cocci in clusters. Because of septic shock on presentation would add vancomycin to ceftriaxone evaluate for final cultures. Vancomycin pharmacy to dose.
[2021-01-28] VITALS (30 sets, daily range): BP systolic 86–119; BP diastolic 53–81; PULSE 91–119; RESP 9–29; TEMP 37.2–38.4; O2SAT 89–96
[2021-01-28] MEDS: fentaNYL 100 MCG/2 ML Ampul 50 MCG IV ×3 (00:13→06:24)
[2021-01-28 00:21] LABS: Bedside Glucose 106 mg/dL (70-110)
--- NOTE | 2021-01-28 01:36 | PCM.RX.CS ---
Consult Pharmacy has been consulted to manage selected antiobiotic: Vancomycin Type of Consult: New start Suspected Infection: Other Prior Doses of Antibiotics Received/Current Regimen: Medications Vancomycin HCl 1,500 mg/ (Sodium Chloride) 530 mls @ 250 mls/hr IV X1 ONE Stop: 01/28/21 01:37 Last Admin: 01/28/21 00:13 Dose: 250 mls/hr Labs: Sodium 133 mmol/L (136-145) L 01/27/21 04:50 Potassium 4.3 mmol/L (3.5-5.1) 01/27/21 04:50 Chloride 101 mmol/L (98-107) 01/27/21 04:50 Carbon Dioxide 17.0 mmol/L (21.0-32.0) L 01/27/21 04:50 Anion Gap 15 (5-15) 01/27/21 04:50 BUN 108 mg/dL (7-18) H* 01/27/21 04:50 Creatinine 7.25 mg/dL (0.70-1.30) H 01/27/21 04:50 Est GFR (MDRD) Af Amer 10 mL/min (>60) L 01/27/21 04:50 Est GFR (MDRD) Non-Af 8 mL/min (>60) L 01/27/21 04:50 BUN/Creatinine Ratio 14.9 RATIO (10-20) 01/27/21 04:50 Glucose 45 mg/dL (74-106) L 01/27/21 04:50 Microbiology: Microbiology 01/26/21 22:45 Blood Culture (Wb) - Anticubital Left Blood Culture - Preliminary 01/27/21 08:00 Stool Enteric Bacteriology - Final 01/27/21 08:00 Stool C. difficile DNA Amplification - Final 01/26/21 22:50 Nasal Secretion SARS-CoV-2 Antigen (Rapid) - Final Weight used for dosin.8 kg Estimated Creatinine Clearance: 8.9 Goal Trough: 15-20 mcg/mL Pharmacy Plan for Drug Dosing: An initial 1500mg dose was given 01/28/21 @0013. Dialysis x1 had been done on 01/27. A random vancomycin level will be drawn with am labs on 01/29 to determine further dosing. Pharmacy will time around dialysis sessions if they are to be continued. Pharmacy Service will continue to monitor and adjust dosing as required. Follow-Up Labs: Trough Vancomycin - random Labs to be done on [date and time ordered]: 01/29/21 @0600
[2021-01-28] MEDS: Acetaminophen 325 MG Tablet 650 MG PO ×2 (02:39→23:30)
[2021-01-28 04:16] LABS: Bedside Glucose 158 mg/dL (70-110)
[2021-01-28 04:22] LABS: Absolute Neutrophil Count 30.4 X10^3/uL (2.0-7.7); Basophil# 0.07 X10^3/uL; Basophil% 0.2 % (0-1); Eosinophils% 0.3 % (0-5); Hematocrit 26.9 % (40-54); Hemoglobin 9.1 g/dL (13.0-16.5); Lymphocyte % 2.9 % (19-41); Mean Corp Hgb Conc 33.8 g/dL (32-36); Mean Corpuscular Hgb 27.3 pg (27.0-32.0); Mean Corpuscular Volume 80.8 fL (80-94); Mean Platelet Vol. 9.2 fl (6.2-12.0); Monocyte# 2.23 X10^3/uL; Monocyte% 6.5 % (0-10); NRBC Flagged by Analyzer 0 % (0-5); Neutrophil # 30.35 X10^3/uL (2.7-7.7); Neutrophil % 88.1 % (47-70); POSITIVE COUNT YES; POSITIVE DIFFERENTIAL YES; Platelet Count 392 K/mm3 (150-450); RBC Distribution Width CV 14.8 % (11.6-14.6); RBC Distribution Width SD 43.8 fl (35.1-43.9); Red Blood Count 3.33 M/mm3 (4.6-6.2)
[2021-01-28 05:04] LABS: Differential Indicated SCAN CRITERIA MET; White Blood Count 34.5 K/mm3 (4.4-11.0)
[2021-01-28 05:09] LABS: Anion Gap 13 (5-15); BUN 79 mg/dL (7-18); BUN/Creat Ratio 13.9 RATIO (10-20); Calcium,Total 8.3 mg/dL (8.5-10.1); Chloride 100 mmol/L (98-107); Creatinine, Serum 5.69 mg/dL (0.70-1.30); EST Glomerular Filtration Rate 11 mL/min (>60); Est Glom Filt Rate - Afr Amer 13 mL/min (>60); Estimated Creatinine Clearance 11.29 ml/min; Glucose 163 mg/dL (74-106); Sodium Level 134 mmol/L (136-145); Thyroid Stim Hormone (TSH) 0.37 uIU/mL (0.358-3.74)
[2021-01-28 06:18] LABS: Differential Comment SCANNED
--- NOTE | 2021-01-28 08:28 | PN.CC_ITS ---
Assessment & Plan Assessment/Plan (1) Sepsis secondary to UTI: (2) Hypoglycemia associated with type 2 diabetes mellitus: (3) Acute renal failure: QUALIFIERS: Acute renal failure type: unspecified Qualified Code(s): N17.9 - Acute kidney failure, unspecified PLAN: RECOMMENDATIONS: 1. Continue hemodialysis per nephrology 2. Discontinue bicarbonate when current bag is done 3. Okay to space out blood sugars 4. Hold all baseline medications 5. Wean pressors as tolerated. Maintain MAP greater than 65 IMPRESSIONS: 1. Septic shock secondary to UTI Patient has gram-positive cocci in clusters growing in blood. Species and sensitivities are still pending. However, patient also appears to have a protracted course. Patient is on empiric antibiotics and pressors. Will wean pressors as tolerated. An element of hypotension likely secondary to metabolic acidosis that is being addressed by hemodialysis. 2. Acute kidney injury secondary to problem #1/hyperkalemia/hyponatremia/non-anion gap metabolic acidosis Patient appears to have significantly delayed presentation by lab results. Patient able to tolerate hemodialysis yesterday. Nephrology is following. We will continue with the bicarbonate drip to complete the current bag, but this likely does not need to be continued now that hemodialysis has been initiated. Clinical suspicion for retention of baseline medications leading to some of the problems at this time. 3. Persistent hypoglycemia in the setting of diabetes mellitus type 2 ([id number]) Patient with relatively normal mental status despite significantly low blood sugars. This indicates that this has likely been somewhat protracted. Cl inical suspicion for retention of oral hypoglycemics more than an insulinoma. Blood sugars have been more stable. Anticipate need to follow them closely following cessation of bicarbonate drip for hypoglycemia 4. Obesity/advanced age/poor primary follow-up Complicates care, management, recovery and prognosis. Hold baseline medications for now until condition stabilizes. TIME: 32 minutes critical care time spent addressing patient's acute kidney injury, septic shock, hypoglycemia, review of all data and collaboration with care team Subjective Subjective Patient did okay overnight. Patient continues to report generalized pain. Patient tolerated hemodialysis well, but still requires pressors to maintain saturation. Patient has in A. fib throughout the evening. Microbiology has reported gram-positive cocci in clusters on blood cultures. Objective Data Objective Data Vital Signs: Vital Signs Temp Pulse Resp BP Pulse Ox 38.2 C H 112 H 26 H 88/60 L 93 01/28/21 06:00 01/28/21 07:00 01/28/21 07:00 01/28/21 07:00 01/28/21 07:00 Oxygen Flow Rate (L/min) 2 Oxygen Delivery Method Nasal Cannula Weight: 103.2 kg Body Mass Index (BMI) 34.7 Intake & Output: Intake and Output for Last 24 Hours 01/26/21 01/27/21 01/28/21 23:59 23:59 23:59 Intake Total 6297.68 / 6316.48 1021.65 / 1021.65 Output Total 825 / 825 450 / 450 Balance 5472.68 / 5491.48 571.65 / 571.65 Medical Nutrition Assessment Dietitian: Malnutrition Criteria Met Start: 01/27/21 13:38 Freq: Status: Active Protocol: Document 01/27/21 13:40 RMA (Rec: 01/27/21 13:40 RMA [id number]) Nutrition Malnutrition Evidence of Malnutrition Exists Yes Malnutrition (severe): Acute Illness/Injury Evidenced By Suboptimal Energy Intake ( Severe),Weight Loss (Severe) Clinical Problem Acute Disease or Injury Related Malnutrition Etiology Severe protein-calorie malnutrition in the context of acute disease related to infection, poor appetite, inadequate oral intake Signs/Symptoms as evidenced by poor intake x 3-4 weeks, PO meeting less than 50% estimated nutrition needs and wt loss~10-11% x past month Status Active Problem Recommendation Dietitian Recommendations/Changes General Renal diet; monitor need to restrict carbohydrates . Will add 120ml Nepro supplement TID w/ meals. Will add fortified pudding BID w/ lunch and dinner. Suggest MENTAL HEALTH NURSE PRACTITIONER evaluation for swallowing as needed. Lab / Micro Data Result Diagrams: 01/28/21 04:19 01/28/21 04:19 Labs: Laboratory Results - last 24 hr 01/27/21 09:03: POC Glucose 80 01/27/21 10:20: POC Glucose 69 L 01/27/21 11:11: POC Glucose 77 01/27/21 12:05: Hep Bs Antigen Non-Reactive 01/27/21 12:05: POC Glucose 88 01/27/21 12:57: POC Glucose 85 01/27/21 14:36: POC Glucose 103 01/27/21 16:04: POC Glucose 89 01/27/21 18:09: POC Glucose 105 01/27/21 20:13: POC Glucose 108 01/27/21 22:06: POC Glucose 111 H 01/28/21 00:17: POC Glucose 106 01/28/21 04:09: POC Glucose 158 H 01/28/21 04:19: WBC 34.5 H*, RBC 3.33 L, Hgb 9.1 L, Hct 26.9 L, MCV 80.8, MCH 27.3, MCHC 33.8, RDW Std Deviation 43.8, RDW Coeff of Flaco 14.8 H, Plt Count 392, MPV 9.2, Immature Gran % (Auto) 2.000 H, Neut % (Auto) 88.1 H, Lymph % (Auto) 2.9 L, [place] % (Auto) 6.5, Eos % (Auto) 0.3, Baso % (Auto) 0.2, Absolute Neuts (auto) 30.4 H, Absolute Lymphs (auto) 1.00, Nucleated RBC % 0, Differential Comment SCANNED, Diff Path Review June01/28/21 04:19: Sodium 134 L, Potassium 4.0, Chloride 100, Carbon Dioxide 21.0, Anion Gap 13, BUN 79 H, Creatinine 5.69 H, Estim Creat Clear Calc 11.29, Est GFR (MDRD) Af Amer 13 L, Est GFR (MDRD) Non-Af 11 L, BUN/Creatinine Ratio 13.9, Glucose 163 H, Calcium 8.3 L, TSH 0.37 Micro: Microbiology 01/26/21 22:45 Blood Culture (Wb) - Anticubital Left Blood Culture - Preliminary 01/27/21 08:00 Stool Enteric Bacteriology - Final 01/27/21 08:00 Stool C. difficile DNA Amplification - Final 01/26/21 22:50 Nasal Secretion SARS-CoV-2 Antigen (Rapid) - Final Radiography Diagnostic Testing: Radiology Impression Echocardiogram 01/27/21 07:31 Interpretation Summary The estimated ejection fraction is 55-60 %. Normal Lv systolic function Severe Pulmonary Hypertension No prior echo to compare Ordering Physician: Yogi Sneed Referring Physician: [facility] Performed By: Valeria Gaming, NATALYACS, RVT Chest X-Ray 01/27/21 12:55 IMPRESSION: Status post placement of a left-sided dialysis catheter. The tip is at the junction of the superior vena cava and right atrium. Electronically Signed: Abhay Keene MD at 13:15 EST , Service support , Renal Ultrasound 01/27/21 13:47 IMPRESSION: 1. Large kidneys without cortical loss. There is mildly increased echogenicity of the right renal parenchyma when compared to the liver. This may be secondary to medical renal disease. 2. Right renal cyst. One appears septated although size makes it difficult to further evaluate. 3. Inability to evaluate the urinary bladder. The presence of a MORALES catheter. Electronically Signed: Darwin Prabhakar DO at 18:13 EST Tel [phone], Service support , Rhythm Strip Rhythm Strip: A-fib Rate: 110 Ectopy: PVC(s) Physical Exam Const alert General Appearance: cooperative and ill appearing Nutritional Appearance: obese HEENT normocephalic and head/scalp atraumatic Eyes PERRL, EOMs intact bilaterally and conjunctivae normal Sclera: sclera abnormal Positive for bilateral Details: scleral injection Neck full ROM Lymph Lymphatic: no lymphadenopathy noted Chest inspection of chest normal Resp normal respiratory effort and no use of accessory muscles Effort and Inspection: able to speak in complete sentences Auscultation: clear to auscultation bilaterally; Negative for rales, rhonchi or wheezes Cardio S1 normal heart sound, S2 normal heart sound, no murmurs and no gallops Rate: tachycardic Rhythm: abnormal rhythm irregularly irregular GI normal to inspection, nondistended, normoactive bowel sounds Palpation: Negative for ascites Percussion: Negative for fluid wave Extremity General Extremity: edema; Negative for clubbing Skin no rashes or lesions noted Neuro CN's II-XII intact bilaterally and no focal motor deficits Psych Mood & Affect: anxious Charges/Coding Procedures Hospitalists Procedures: [id number] Critial Care 1st Hr
[2021-01-28 08:41] LABS: Bedside Glucose 165 mg/dL (70-110)
[2021-01-28] MEDS: Pravastatin 20 MG Tablet PO (10:22)
[2021-01-28] MEDS: Neomycin/Bacitracin/Polymyxin Opth. Ointment 1 APPLIC RIGHT EYE (10:22)
[2021-01-28] MEDS: Ferrous Sulfate 325 MG Tablet PO (10:22)
[2021-01-28] MEDS: Ceftriaxone 1 GM/50 ML BAG IV (10:22)
[2021-01-28] MEDS: oxyCODONE 5 MG Tablet PO ×3 (10:22→23:30)
[2021-01-28 12:30] LABS: Bedside Glucose 300 mg/dL (70-110)
[2021-01-28 12:37] LABS: Hepatitis B Core Ab Total Negative (Negative)
--- NOTE | 2021-01-28 12:57 | PN.HOSP_ITS ---
Subjective Subjective Feels better. Has an appetite now. Ate all his breakfast today. Objective Data Objective Data Vital Signs: Vital Signs Temp Pulse Resp BP Pulse Ox 37.2 C 105 H 23 H 110/68 93 01/28/21 12:00 01/28/21 12:00 01/28/21 12:00 01/28/21 12:00 01/28/21 12:00 Oxygen Flow Rate (L/min) 2 Oxygen Delivery Method Nasal Cannula Weight: 103.2 kg Body Mass Index (BMI) 34.7 Intake & Output: Intake and Output for Last 24 Hours 01/26/21 01/27/21 01/28/21 23:59 23:59 23:59 Intake Total 6297.68 / 6316.48 1165.65 / 1165.65 Output Total 825 / 825 450 / 450 Balance 5472.68 / 5491.48 715.65 / 715.65 Medical Nutrition Assessment Dietitian: Malnutrition Criteria Met Start: 01/27/21 13:38 Freq: Status: Active Protocol: Document 01/27/21 13:40 RMA (Rec: 01/27/21 13:40 RMA [id number]) Nutrition Malnutrition Evidence of Malnutrition Exists Yes Malnutrition (severe): Acute Illness/Injury Evidenced By Suboptimal Energy Intake ( Severe),Weight Loss (Severe) Clinical Problem Acute Disease or Injury Related Malnutrition Etiology Severe protein-calorie malnutrition in the context of acute disease related to infection, poor appetite, inadequate oral intake Signs/Symptoms as evidenced by poor intake x 3-4 weeks, PO meeting less than 50% estimated nutrition needs and wt loss~10-11% x past month Status Active Problem Recommendation Dietitian Recommendations/Changes General Renal diet; monitor need to restrict carbohydrates . Will add 120ml Nepro supplement TID w/ meals. Will add fortified pudding BID w/ lunch and dinner. Suggest ONLINE ADVERTISING DIRECTOR evaluation for swallowing as needed. Lab / Micro Data Result Diagrams: 01/28/21 04:19 01/28/21 04:19 Labs: Laboratory Results - last 24 hr 01/27/21 00:14: Urine Color Brown, Urine Clarity Turbid, Urine pH 6.0, Ur Specific [place] 1.025, Urine Protein 100 H, Urine Glucose (UA) Normal, Urine Ketones 5 H, Urine Occult Blood 150 H, Urine Nitrite Negative, Urine Bilirubin Negative, Urine Urobilinogen Normal, Ur Leukocyte Esterase 500 H, Urine RBC > 100 SEEN, Urine WBC >100 SEEN, Ur Squamous Epith Cells 0 SEEN, Urine Bacteria 3+, Urine Mucus 0 SEEN 01/27/21 12:05: Hep B Core Total Ab Negative 01/27/21 12:05: Hep Bs Antigen Non-Reactive 01/27/21 12:57: POC Glucose 85 01/27/21 14:36: POC Glucose 103 01/27/21 16:04: POC Glucose 89 01/27/21 18:09: POC Glucose 105 01/27/21 20:13: POC Glucose 108 01/27/21 22:06: POC Glucose 111 H 01/28/21 00:17: POC Glucose 106 01/28/21 04:09: POC Glucose 158 H 01/28/21 04:19: WBC 34.5 H*, RBC 3.33 L, Hgb 9.1 L, Hct 26.9 L, MCV 80.8, MCH 27.3, MCHC 33.8, RDW Std Deviation 43.8, RDW Coeff of Flaco 14.8 H, Plt Count 392, MPV 9.2, Immature Gran % (Auto) 2.000 H, Neut % (Auto) 88.1 H, Lymph % (Auto) 2.9 L, [place] % (Auto) 6.5, Eos % (Auto) 0.3, Baso % (Auto) 0.2, Absolute Neuts (auto) 30.4 H, Absolute Lymphs (auto) 1.00, Nucleated RBC % 0, Differential Comment SCANNED, Diff Path Review June01/28/21 04:19: Sodium 134 L, Potassium 4.0, Chloride 100, Carbon Dioxide 21.0, Anion Gap 13, BUN 79 H, Creatinine 5.69 H, Estim Creat Clear Calc 11.29, Est GFR (MDRD) Af Amer 13 L, Est GFR (MDRD) Non-Af 11 L, BUN/Creatinine Ratio 13.9, Glucose 163 H, Calcium 8.3 L, TSH 0.37 01/28/21 08:35: POC Glucose 165 H 01/28/21 12:27: POC Glucose 300 H Micro: Microbiology 01/27/21 00:14 Urine, Clean Catch Urine Culture - Preliminary GPC Poss Enterococcus sp 01/26/21 22:45 Blood Culture (Wb) - Anticubital Left Blood Culture - Preliminary 01/27/21 08:00 Stool Enteric Bacteriology - Final 01/27/21 08:00 Stool C. difficile DNA Amplification - Final 01/26/21 22:50 Nasal Secretion SARS-CoV-2 Antigen (Rapid) - Final Radiography Diagnostic Testing: Radiology Impression Echocardiogram 01/27/21 07:31 Interpretation Summary The estimated ejection fraction is 55-60 %. Normal Lv systolic function Severe Pulmonary Hypertension No prior echo to compare Ordering Physician: Yogi Sneed Referring Physician: [facility] Performed By: Valeria Gaming, BLANQUITA, RVT Chest X-Ray 01/27/21 12:55 IMPRESSION: Status post placement of a left-sided dialysis catheter. The tip is at the junction of the superior vena cava and right atrium. Electronically Signed: Abhay Keene MD at 13:15 EST , Service support , Renal Ultrasound 01/27/21 13:47 IMPRESSION: 1. Large kidneys without cortical loss. There is mildly increased echogenicity of the right renal parenchyma when compared to the liver. This may be secondary to medical renal disease. 2. Right renal cyst. One appears septated although size makes it difficult to further evaluate. 3. Inability to evaluate the urinary bladder. The presence of a MORALES catheter. Electronically Signed: Darwin Prabhakar DO at 18:13 EST Tel [phone], Service support , Rhythm Strip Rhythm Strip: A-fib Rate: 110 Ectopy: PVC(s) Physical Exam Const alert and no apparent distress Resp normal respiratory effort and no retractions Cardio regular rate, regular rhythm, S1 normal heart sound and S2 normal heart sound GI normal to inspection, nondistended, normoactive bowel sounds, soft to palpation, non-tender and non-distended Extremity normal to inspection Assessment & Plan Assessment/Plan (1) Sepsis secondary to UTI: (2) Atrial fibrillation: QUALIFIERS: Atrial fibrillation type: unspecified Qualified Code(s): I48.91 - Unspecified atrial fibrillation (3) Septic shock: (4) Acute renal failure: QUALIFIERS: Acute renal failure type: unspecified Qualified Code(s): N17.9 - Acute kidney failure, unspecified (5) Hyperkalemia, diminished renal excretion: PLAN: 1. Septic Shock 2/2 UTI and bacteremia Patient met qSOFA criteria with respiratory rate of at least 2 and encephalopathy (encephalopathy could be secondary to hypoglycemia) Emergent department labs reviewed showed abnormal urinalysis. Source of infection urine Organ dysfunction patient with acute kidney injury. Received normal saline 30cc kilogram bolus of ideal body weight with systolic blood pressure less than 90. Started on Levophed infusion at emergency department and continued. Initial lactic acid was 2.2. Follow-up lactic acid normal. 2. UTI Cx showing possible enterococcus sp on Vanc and CTX follow up cultures 3. Bacteremia GPC in clusters (Staph?) on vanc 4. Acute kidney injury His creatinine presentation was 7.75. BUN was 116. His creatinine on 02/21 21 was 0.88. Morales catheter was placed at the ED. Nephrology consult. Suspect ATN Dialysis catheter placed 01/27 5. Hyperkalemia Initial potassium was 5.5. Resolved Patient was treated for hyperkalemia emergency department. Hyperkalemia resolved. 6. Hypoglycemia resolved with D50 likely due to HELENA + glimepiride and metformin 7. DM2 now worse add SSI 8. Diarrhea Cdiff negative resolved 9. Atrial fibrillation with rapid ventricular response resolved [id number] 2 score is more than 1 and patient will be a candidate for anticoagulation especially as for the past few months patient has had intermittent palpitation. A. fib might have been accentuated by sepsis. 10. Metabolic encephalopathy probably multifactorial resolved 11. VTE prophylaxis SCDs Charges/Coding Visit Charges Inpatient E&M: 06483 Subs Hosp L3
[2021-01-28 15:45] LABS: Bedside Glucose 392 mg/dL (70-110)
[2021-01-28] MEDS: Insulin Lispro 100 UNIT/ML INSULN.PEN SC (15:46)
[2021-01-28] MEDS: 0.9% Saline Lock 10 ML Syringe IV (15:50)
[2021-01-28 22:05] LABS: Bedside Glucose 386 mg/dL (70-110)
[2021-01-29] VITALS (39 sets, daily range): BP systolic 83–121; BP diastolic 52–100; PULSE 99–111; RESP 16–23; TEMP 37.3–38.1; O2SAT 89–95
[2021-01-29 02:36] LABS: Absolute Lymphocyte Count 0.77 X10^3/uL (0.83-4.51); Absolute Neutrophil Count 20.1 X10^3/uL (2.0-7.7); Basophil# 0.05 X10^3/uL; Basophil% 0.2 % (0-1); Eosinophil# 0.12 X10^3/uL; Eosinophils% 0.5 % (0-5); Hematocrit 26.7 % (40-54); Hemoglobin 8.7 g/dL (13.0-16.5); Lymphocyte # 0.77 X10^3/ul (0.83-4.51); Lymphocyte % 3.3 % (19-41); Mean Corp Hgb Conc 32.6 g/dL (32-36); Mean Corpuscular Hgb 27.1 pg (27.0-32.0); Mean Corpuscular Volume 83.2 fL (80-94); Mean Platelet Vol. 9.2 fl (6.2-12.0); Monocyte# 1.81 X10^3/uL; Monocyte% 7.7 % (0-10); NRBC Flagged by Analyzer 0 % (0-5); Neutrophil # 20.11 X10^3/uL (2.7-7.7); Neutrophil % 85.7 % (47-70); POSITIVE DIFFERENTIAL YES; Platelet Count 321 K/mm3 (150-450); RBC Distribution Width CV 14.9 % (11.6-14.6); RBC Distribution Width SD 44.7 fl (35.1-43.9); Red Blood Count 3.21 M/mm3 (4.6-6.2); White Blood Count 23.5 K/mm3 (4.4-11.0)
[2021-01-29 02:38] LABS: Differential Indicated SCAN CRITERIA MET
[2021-01-29 02:59] LABS: ALB/GLOB Ratio 0.4 RATIO (0.9-2.4); AST(SGOT) 16 U/L (15-37); Alanine Aminotransfer ALT/SGPT 26 U/L (16-61); Albumin, Serum 1.6 g/dL (3.2-5.0); Alkaline Phosphatase 156 U/L (45-117); Anion Gap 11 (5-15); BUN 67 mg/dL (7-18); BUN/Creat Ratio 14.4 RATIO (10-20); Calcium,Total 8.7 mg/dL (8.5-10.1); Chloride 98 mmol/L (98-107); Creatinine, Serum 4.64 mg/dL (0.70-1.30); EST Glomerular Filtration Rate 13 mL/min (>60); Est Glom Filt Rate - Afr Amer 16 mL/min (>60); Estimated Creatinine Clearance 13.85 ml/min; Globulin 4.3 g/dL (2.2-4.2); Glucose 440 mg/dL (74-106); Protein, Total 5.9 g/dL (6.4-8.2); Sodium Level 133 mmol/L (136-145)
--- NOTE | 2021-01-29 04:20 | PCM.PN.BLA ---
Progress Note Notified of blood glucose of 440 on a.m. BMP. Will change correction scale regimen from 3 times daily AC to QACHS. Will change correction scale from medium dose to high medium dose. Will start long-acting insulin. Will add prandial insulin.
[2021-01-29] MEDS: Insulin Lispro 100 UNIT/ML INSULN.PEN SC ×6 (04:53→20:28)
[2021-01-29 05:11] LABS: Bedside Glucose 352 mg/dL (70-110)
[2021-01-29 05:53] LABS: Vancomycin, Random Level 10.2 ug/mL (0.0-15.0)
--- NOTE | 2021-01-29 06:11 | PN.CC_ITS ---
Assessment & Plan Assessment/Plan (1) Sepsis secondary to UTI: (2) Hypoglycemia associated with type 2 diabetes mellitus: (3) Acute renal failure: QUALIFIERS: Acute renal failure type: unspecified Qualified Code(s): N17.9 - Acute kidney failure, unspecified PLAN: RECOMMENDATIONS: 1. Continue hemodialysis per nephrology 2. Continue vancomycin. Pharmacy to dose 3. Initiate Lantus therapy 4. Continue to hold all baseline medications 5. Wean pressors as tolerated. Maintain MAP greater than 65 IMPRESSIONS: 1. Septic shock secondary to Enterococcus UTI Patient has gram-positive cocci in clusters growing in blood. Species and sensitivities are still pending. However, patient also appears to have a protracted course. Patient is on empiric antibiotics and pressors. Will wean pressors as tolerated. An element of hypotension likely secondary to metabolic acidosis that is being addressed by hemodialysis. Await findings on culture before narrowing antibiotics 2. Acute kidney injury secondary to problem #1/hyp erkalemia/hyponatremia/non-anion gap metabolic acidosis Patient appears to have significantly delayed presentation by lab results. Patient able to tolerate hemodialysis yesterday. Nephrology is following. Urine output appears to be improving. Clinical suspicion for retention of basel ine medications leading to some of the problems at this time. 3. Persistent hypoglycemia in the setting of diabetes mellitus type 2 ([id number]) Patient has gone from persistent hypoglycemia to hyperglycemia, likely secondary to clearance of p.o. medications with dialysis. Patient will be initiated on Lantus therapy. Anticipate continuation of insulin until renal function normalizes. 4. Obesity/advanced age/poor primary follow-up Complicates care, management, recovery and prognosis. Hold baseline medications for now until condition stabilizes. TIME: 34 minutes critical care time spent addressing patient's acute kidney injury, septic shock, hypoglycemia, review of all data and collaboration with care team Subjective Subjective Patient did okay overnight. No acute issues were reported. Patient did have hemodialysis yesterday, but no fluid was removed. Patient does have Enterococcus growing from the urine. Patient subjectively feels slightly improved compared to yesterday, but still reports generalized discomfort. Objective Data Objective Data Vital Signs: Vital Signs Temp Pulse Resp BP Pulse Ox 37.8 C H 100 20 H 98/61 91 01/29/21 04:00 01/29/21 04:00 01/29/21 04:00 01/29/21 04:00 01/29/21 04:00 Oxygen Flow Rate (L/min) 3 Oxygen Delivery Method Nasal Cannula Weight: 103.2 kg Body Mass Index (BMI) 34.7 Intake & Output: Intake and Output for Last 24 Hours 01/27/21 01/28/21 01/29/21 23:59 23:59 23:59 Intake Total 6297.68 / 6316.48 2517.66 / 2672.66 203.80 / 203.80 Output Total 825 / 825 700 / 1100 400 / 400 Balance 5472.68 / 5491.48 1817.66 / 1572.66 -196.20 / -196.20 Medical Nutrition Assessment Dietitian: Malnutrition Criteria Met Start: 01/27/21 13:38 Freq: Status: Active Protocol: Document 01/28/21 16:32 RMA (Rec: 01/28/21 16:33 RMA [id number]) Nutrition Malnutrition Evidence of Malnutrition Exists Yes Malnutrition (severe): Acute Illness/Injury Evidenced By Suboptimal Energy Intake ( Severe),Weight Loss (Severe) Clinical Problem Acute Disease or Injury Related Malnutrition Etiology Severe protein-calorie malnutrition in the context of acute disease related to infection, poor appetite, inadequate oral intake Signs/Symptoms as evidenced by poor intake x 3-4 weeks, PO meeting less than 50% estimated nutrition needs and wt loss~10-11% x past month Status Active Problem Recommendation Dietitian Recommendations/Changes General Renal/Consistent Carbohydrate diet. Will continue 120ml Nepro supplement TID w/ meals and fortified pudding BID w/ lunch and dinner. Suggest HOSPITAL DIRECTOR evaluation for swallowing as needed. Lab / Micro Data Result Diagrams: 01/29/21 02:22 01/29/21 02:22 Labs: Laboratory Results - last 24 hr 01/27/21 00:14: Urine Color Brown, Urine Clarity Turbid, Urine pH 6.0, Ur Specific [place] 1.025, Urine Protein 100 H, Urine Glucose (UA) Normal, Urine Ketones 5 H, Urine Occult Blood 150 H, Urine Nitrite Negative, Urine Bilirubin Negative, Urine Urobilinogen Normal, Ur Leukocyte Esterase 500 H, Urine RBC > 100 SEEN, Urine WBC >100 SEEN, Ur Squamous Epith Cells 0 SEEN, Urine Bacteria 3+, Urine Mucus 0 SEEN 01/27/21 12:05: Hep B Core Total Ab Negative 01/28/21 04:19: Differential Comment SCANNED, Diff Path Review June [facility] 01/28/21 08:35: POC Glucose 165 H 01/28/21 12:27: POC Glucose 300 H 01/28/21 15:40: POC Glucose 392 H 01/28/21 21:54: POC Glucose 386 H 01/29/21 02:22: WBC 23.5 H, RBC 3.21 L, Hgb 8.7 L, Hct 26.7 L, MCV 83.2, MCH 27.1, MCHC 32.6, RDW Std Deviation 44.7 H, RDW Coeff of [place]aco 14.9 H, Plt Count 321, MPV 9.2, Immature Gran % (Auto) 2.600 H, Neut % (Auto) 85.7 H, Lymph % (Auto) 3.3 L, [place] % (Auto) 7.7, Eos % (Auto) 0.5, Baso % (Auto) 0.2, Absolute Neuts (auto) 20.1 H, Absolute Lymphs (auto) 0.77 L, Nucleated RBC % 0, Diff Path Review June [facility] 01/29/21 02:22: Sodium 133 L, Potassium 4.0, Chloride 98, Carbon Dioxide 24.0, Anion Gap 11, BUN 67 H, Creatinine 4.64 H, Estim Creat Clear Calc 13.85, Est GFR (MDRD) Af Amer 16 L, Est GFR (MDRD) Non-Af 13 L, BUN/Creatinine Ratio 14.4, Glucose 440 H, Calcium 8.7, Total Bilirubin 0.40, AST 16, ALT 26, Alkaline Ph osphatase 156 H, Total Protein 5.9 L, Albumin 1.6 L, Globulin 4.3 H, Albumin/Globulin Ratio 0.4 L 01/29/21 04:59: POC Glucose 352 H 01/29/21 05:15: Random Vancomycin 10.2 Micro: Microbiology 01/26/21 22:45 Blood Culture (Wb) - Anticubital Left Blood Culture - Preliminary 01/27/21 00:14 Urine, Clean Catch Urine Culture - Preliminary GPC Poss Enterococcus sp 01/27/21 08:00 Stool Enteric Bacteriology - Final 01/27/21 08:00 Stool C. difficile DNA Amplification - Final 01/26/21 22:50 Nasal Secretion SARS-CoV-2 Antigen (Rapid) - Final Rhythm Strip Rhythm Strip: A-fib Rate: 110 Ectopy: PVC(s) Physical Exam Const alert, oriented x3 and no apparent distress General Appearance: cooperative Nutritional Appearance: obese HEENT normocephalic and head/scalp atraumatic Eyes PERRL, EOMs intact bilaterally and conjunctivae normal Sclera: sclera abnormal Positive for bilateral Details: scleral injection Neck full ROM Lymph Lymphatic: no lymphadenopathy noted Chest inspection of chest normal Resp normal respiratory effort and no use of accessory muscles Effort and Inspection: able to speak in complete sentences Auscultation: clear to auscultation bilaterally; Negative for rales, rhonchi or wheezes Cardio S1 normal heart sound, S2 normal heart sound, no murmurs and no gallops Rate: tachycardic Rhythm: abnormal rhythm irregularly irregular GI normal to inspection, nondistended, normoactive bowel sounds Palpation: Negative for ascites Percussion: Negative for fluid wave Extremity General Extremity: edema; Negative for clubbing Skin no rashes or lesions noted Neuro CN's II-XII intact bilaterally and no focal motor deficits Psych Mood & Affect: anxious Charges/Coding Procedures Hospitalists Procedures: 83388 Critial Care 1st Hr
[2021-01-29] MEDS: oxyCODONE 5 MG Tablet PO ×2 (08:19→20:05)
[2021-01-29] MEDS: Ondansetron 4 MG/2 ML Vial IV ×2 (08:19→20:06)
[2021-01-29] MEDS: Ceftriaxone 1 GM/50 ML BAG IV (08:19)
[2021-01-29 08:40] LABS: Bedside Glucose 295 mg/dL (70-110)
[2021-01-29] MEDS: Ferrous Sulfate 325 MG Tablet PO (11:48)
[2021-01-29] MEDS: Pravastatin 20 MG Tablet PO (11:48)
[2021-01-29] MEDS: Neomycin/Bacitracin/Polymyxin Opth. Ointment 1 APPLIC RIGHT EYE (11:49)
[2021-01-29 11:55] LABS: Bedside Glucose 255 mg/dL (70-110)
--- NOTE | 2021-01-29 14:42 | PN.HOSP_ITS ---
Subjective Subjective Denies any new complaints. Objective Data Objective Data Vital Signs: Vital Signs Temp Pulse Resp BP Pulse Ox 37.9 C H 100 22 H 100/60 89 01/29/21 08:00 01/29/21 09:00 01/29/21 09:00 01/29/21 09:45 01/29/21 09:00 Oxygen Flow Rate (L/min) 4 Oxygen Delivery Method Nasal Cannula Weight: 105.4 kg Body Mass Index (BMI) 34.7 Intake & Output: Intake and Output for Last 24 Hours 01/27/21 01/28/21 01/29/21 23:59 23:59 23:59 Intake Total 6297.68 / 6316.48 2517.66 / 2672.66 421.22 / 421.22 Output Total 825 / 825 700 / 1100 750 / 750 Balance 5472.68 / 5491.48 1817.66 / 1572.66 -328.78 / -328.78 Medical Nutrition Assessment Dietitian: Malnutrition Criteria Met Start: 01/27/21 13:38 Freq: Status: Active Protocol: Document 01/28/21 16:32 RMA (Rec: 01/28/21 16:33 RMA [id number]) Nutrition Malnutrition Evidence of Malnutrition Exists Yes Malnutrition (severe): Acute Illness/Injury Evidenced By Suboptimal Energy Intake ( Severe),Weight Loss (Severe) Clinical Problem Acute Disease or Injury Related Malnutrition Etiology Severe protein-calorie malnutrition in the context of acute disease related to infection, poor appetite, inadequate oral intake Signs/Symptoms as evidenced by poor intake x 3-4 weeks, PO meeting less than 50% estimated nutrition needs and wt loss~10-11% x past month Status Active Problem Recommendation Dietitian Recommendations/Changes General Renal/Consistent Carbohydrate diet. Will continue 120ml Nepro supplement TID w/ meals and fortified pudding BID w/ lunch and dinner. Suggest ELECTRONIC BENCH TECHNICIAN evaluation for swallowing as needed. Lab / Micro Data Result Diagrams: 01/29/21 02:22 01/29/21 02:22 Labs: Laboratory Results - last 24 hr 01/28/21 15:40: POC Glucose 392 H 01/28/21 21:54: POC Glucose 386 H 01/29/21 02:22: WBC 23.5 H, RBC 3.21 L, Hgb 8.7 L, Hct 26.7 L, MCV 83.2, MCH 27.1, MCHC 32.6, RDW Std Deviation 44.7 H, RDW Coeff of [place] 14.9 H, Plt Count 321, MPV 9.2, Immature Gran % (Auto) 2.600 H, Neut % (Auto) 85.7 H, Lymph % (Auto) 3.3 L, [place] % (Auto) 7.7, Eos % (Auto) 0.5, Baso % (Auto) 0.2, Absolute Neuts (auto) 20.1 H, Absolute Lymphs (auto) 0.77 L, Nucleated RBC % 0, Diff Path Review June01/29/21 02:22: Sodium 133 L, Potassium 4.0, Chloride 98, Carbon Dioxide 24.0, Anion Gap 11, BUN 67 H, Creatinine 4.64 H, Estim Creat Clear Calc 13.85, Est GFR (MDRD) Af Amer 16 L, Est GFR (MDRD) Non-Af 13 L, BUN/Creatinine Ratio 14.4, Glucose 440 H, Calcium 8.7, Total Bilirubin 0.40, AST 16, ALT 26, Alkaline Phosphatase 156 H, Total Protein 5.9 L, Albumin 1.6 L, Globulin 4.3 H, Albumin/Globulin Ratio 0.4 L 01/29/21 04:59: POC Glucose 352 H 01/29/21 05:15: Random Vancomycin 10.2 01/29/21 08:32: POC Glucose 295 H 01/29/21 11:46: POC Glucose 255 H Micro: Microbiology 01/27/21 00:14 Urine, Clean Catch Urine Culture - Final Enterococcus faecalis 01/26/21 22:45 Blood Culture (Wb) - Anticubital Left Blood Culture - Preliminary 01/27/21 08:00 Stool Enteric Bacteriology - Final 01/27/21 08:00 Stool C. difficile DNA Amplification - Final 01/26/21 22:50 Nasal Secretion SARS-CoV-2 Antigen (Rapid) - Final Rhythm Strip Rhythm Strip: A-fib Rate: 110 Ectopy: PVC(s) Physical Exam Const alert and no apparent distress HEENT head/scalp atraumatic Head and Scalp: normocephalic Resp normal respiratory effort, no retractions, no use of accessory muscles and clear to auscultation bilaterally Cardio regular rate, regular rhythm, S1 normal heart sound and S2 normal heart sound GI normal to inspection, nondistended, normoactive bowel sounds, soft to palpation, non-tender and non-distended Extremity normal to inspection and full ROM Assessment & Plan Assessment/Plan (1) Sepsis secondary to UTI: (2) Atrial fibrillation: QUALIFIERS: Atrial fibrillation type: unspecified Qualified Code(s): I48.91 - Unspecified atrial fibrillation (3) Septic shock: (4) Acute renal failure: QUALIFIERS: Acute renal failure type: unspecified Qualified Code(s): N17.9 - Acute kidney failure, unspecified (5) Hyperkalemia, diminished renal excretion: PLAN: 1. Septic Shock 2/2 UTI and bacteremia Patient met qSOFA criteria with respiratory rate of at least 2 and encephalopathy (encephalopathy could be secondary to hypoglycemia) Emergent department labs reviewed showed abnormal urinalysis. Source of infection urine Organ dysfunction patient with acute kidney injury. Received normal saline 30cc kilogram bolus of ideal body weight with systolic blood pressure less than 90. Started on Levophed infusion at emergency department and continued. Initial lactic acid was 2.2. Follow-up lactic acid normal. 2. UTI Cx showing possible enterococcus faecalis (VSE) on Vanc follow up cultures 3. Bacteremia GPC in clusters on vanc repeat BCx pending 4. Acute kidney injury His creatinine presentation was 7.75. BUN was 116. His creatinine on 02/21/2009 21 was 0.88. Cu[place] catheter was placed at the ED. Nephrology consult. Suspect ATN Dialysis catheter placed 01/27 on HD 5. Hyperkalemia Initial potassium was 5.5. Resolved Patient was treated for hyperkalemia emergency department. Hyperkalemia resolved. 6. Hypoglycemia resolved with D50 likely due to HELENA + glimepiride and metformin 7. DM2 now worse add SSI 8. Diarrhea Cdiff negative resolved 9. Atrial fibrillation with rapid ventricular response resolved [id number] 2 score is more than 1 and patient will be a candidate for anticoagulation especially as for the past few months patient has had intermittent palpitation. A. fib might have been accentuated by sepsis. 10. Metabolic encephalopathy probably multifactorial resolved 11. VTE prophylaxis SCDs Charges/Coding Visit Charges Inpatient E&M: 38540 Subs Hosp L2
[2021-01-29 16:51] LABS: Bedside Glucose 197 mg/dL (70-110)
--- NOTE | 2021-01-29 18:30 | NURSING ---
Patient encouraged multiple times throughout the day to get up and sit in the chair. Taught patient the importance of not lying in bed all day. Patient continues to refuse to get out of bed. States he doesn't feel good and doesn't want to get up. Patient also refused to get up for therapy today.
--- NOTE | 2021-01-29 19:05 | PCM.RX.CS ---
Consult Pharmacy has been consulted to manage selected antiobiotic: Vancomycin Type of Consult: Follow-up Labs: Sodium 133 mmol/L (136-145) L 01/29/21 02:22 Potassium 4.0 mmol/L (3.5-5.1) 01/29/21 02:22 Chloride 98 mmol/L (98-107) 01/29/21 02:22 Carbon Dioxide 24.0 mmol/L (21.0-32.0) 01/29/21 02:22 Anion Gap 11 (5-15) 01/29/21 02:22 BUN 67 mg/dL (7-18) H 01/29/21 02:22 Creatinine 4.64 mg/dL (0.70-1.30) H 01/29/21 02:22 Est GFR (MDRD) Af Amer 16 mL/min (>60) L 01/29/21 02:22 Est GFR (MDRD) Non-Af 13 mL/min (>60) L 01/29/21 02:22 BUN/Creatinine Ratio 14.4 RATIO (10-20) 01/29/21 02:22 Glucose 440 mg/dL (74-106) H 01/29/21 02:22 Random Vancomycin 10.2 ug/mL (0.0-15.0) 01/29/21 05:15 Microbiology: Microbiology 01/27/21 04:15 Blood Culture (Wb) - Central Line Blood Culture - Preliminary No growth in 48 hours. 01/26/21 22:45 Blood Culture (Wb) - Anticubital Left Blood Culture - Preliminary Coag Negative Staph 01/27/21 00:14 Urine, Clean Catch Urine Culture - Final Enterococcus faecalis 01/27/21 08:00 Stool Enteric Bacteriology - Final 01/27/21 08:00 Stool C. difficile DNA Amplification - Final 01/26/21 22:50 Nasal Secretion SARS-CoV-2 Antigen (Rapid) - Final Goal Trough: 15-20 mcg/mL Pharmacy Plan for Drug Dosing: DAILY ASSESSMENT Current Vancomcyin Dose: ON HEMODIALYSIS- DOSING BASED ON LEVELS Number of Doses Received: 1 Current Renal Function: ON HD- UNKNOWN SCHEDULE Renal Function Trend: HD Lab/Micro: cX GROWING ENTEROCOCCUS Any Change in Vanc Plan: Unknown of dialysis schedule this morning. discussed with STEVE Hernandez. She contacted nephrology, pt not getting dialyzed today, unknown when next HD will be. Will give 750mg IV x1 dose today, as pt had very late HD session yesterday (01/28) and never had a supplemental dose after his session. Pharmacy will have to call ICU daily to determine whether pt getting HD or not. If getting HD, a Random level will need to be ordered prior to the start of HD to determine next dose. Pending Level: NONE, CALL ICU DAILY TO DETERMINE IF PT TO GET HD, NOT ON A SCHEDULE AT THIS TIME. Pharmacy Service will continue to monitor and adjust dosing as required.
[2021-01-29] MEDS: Acetaminophen 325 MG Tablet 650 MG PO (20:06)
[2021-01-29 23:25] LABS: Bedside Glucose 201 mg/dL (70-110)
[2021-01-30] VITALS (36 sets, daily range): BP systolic 76–152; BP diastolic 45–114; PULSE 102–119; RESP 15–25; TEMP 36.7–38.3; O2SAT 90–96
[2021-01-30] MEDS: Acetaminophen 325 MG Tablet 650 MG PO (03:31)
[2021-01-30 03:55] LABS: Hemoglobin 8.7 g/dL (13.0-16.5); Mean Corp Hgb Conc 32.2 g/dL (32-36); Mean Corpuscular Hgb 27.3 pg (27.0-32.0); Mean Corpuscular Volume 84.6 fL (80-94); Mean Platelet Vol. 8.9 fl (6.2-12.0); POSITIVE COUNT YES; POSITIVE DIFFERENTIAL YES; POSITIVE MORPHOLOGY YES; Platelet Count 305 K/mm3 (150-450); RBC Distribution Width CV 14.7 % (11.6-14.6); RBC Distribution Width SD 45.8 fl (35.1-43.9); Red Blood Count 3.19 M/mm3 (4.6-6.2); White Blood Count 20.3 K/mm3 (4.4-11.0)
[2021-01-30 04:26] LABS: ALB/GLOB Ratio 0.4 RATIO (0.9-2.4); AST(SGOT) 11 U/L (15-37); Alanine Aminotransfer ALT/SGPT 22 U/L (16-61); Albumin, Serum 1.6 g/dL (3.2-5.0); Alkaline Phosphatase 152 U/L (45-117); Anion Gap 8 (5-15); BUN 74 mg/dL (7-18); Calcium,Total 9.2 mg/dL (8.5-10.1); Chloride 100 mmol/L (98-107); EST Glomerular Filtration Rate 12 mL/min (>60); Est Glom Filt Rate - Afr Amer 14 mL/min (>60); Estimated Creatinine Clearance 12.13 ml/min; Globulin 4.5 g/dL (2.2-4.2); Glucose 139 mg/dL (74-106); Potassium 3.9 mmol/L (3.5-5.1); Protein, Total 6.1 g/dL (6.4-8.2); Sodium Level 134 mmol/L (136-145)
[2021-01-30 07:47] LABS: Neutrophil-Band 3 % (0-5); Neutrophil-Segmented 87 % (47-70)
[2021-01-30 07:48] LABS: Eosinophil 1 % (0-5); Lymphocyte 6 % (19-41); Metamyelocyte 3 % (0-1); Platelet Estimate ADEQUATE (ADEQ); Red Cell Morphology NORM C+C NORMAL (NORM C&C)
[2021-01-30 07:49] LABS: Absolute Neutrophil Count 18.2 X10^3/uL (2.0-7.7); Differential Indicated MANUAL DIFF; Neutrophil # 18.23 X10^3/uL (2.7-7.7)
[2021-01-30 07:50] LABS: Absolute Lymphocyte Count 1.21 X10^3/uL (0.83-4.51); Lymphocyte # 1.21 X10^3/ul (0.83-4.51); Scan Smear per Review Criteria MANUAL DIFF
[2021-01-30 08:01] LABS: Bedside Glucose 142 mg/dL (70-110)
[2021-01-30] MEDS: oxyCODONE 5 MG Tablet PO ×2 (08:01→21:12)
[2021-01-30] MEDS: Pravastatin 20 MG Tablet PO (08:18)
[2021-01-30] MEDS: Ferrous Sulfate 325 MG Tablet PO (08:18)
[2021-01-30] MEDS: Neomycin/Bacitracin/Polymyxin Opth. Ointment 1 APPLIC RIGHT EYE (08:18)
[2021-01-30 10:33] LABS: Pathologist Review Reviewed
[2021-01-30 10:46] LABS: Vancomycin, Random Level 15.7 ug/mL (0.0-15.0)
--- NOTE | 2021-01-30 11:00 | CASEMGMT ---
Addendum entered by Kathie Erwin 01/30/21 14:02: SW spoke w/pt this afternoon in regard to going to rehab at discharge. Pt states he is not interested. Pt confirms lives alone, plans to go home. Pt's RN came in and said therapy is coming in this afternoon to work w/him. SW explained we can see how he does with therapy. SW provided lists of [place] [facility] facilities for [facility], that take pt's Medicare, complete with quality and resource use data. Pt told SW to just put the list over there with the other paperwork. SW will continue to follow, it is anticipated pt may benefit from [facility] placement. ZARINA Oneill Original Note: Social Work SW participated in ICU rounds. SW met w/pt after rounds to discuss options at discharge. Pt is getting dialysis at present however. SW explained will come back this afternoon to speak w/him further. Pt states understanding. SW will continue to follow. Pt has not yet participated in therapy. ZARINA Oneill
[2021-01-30] MEDS: Insulin Lispro 100 UNIT/ML INSULN.PEN SC ×4 (11:18→21:12)
--- NOTE | 2021-01-30 11:34 | PCM.RX.CS ---
Consult Pharmacy has been consulted to manage selected antiobiotic: Vancomycin Type of Consult: Follow-up Prior Doses of Antibiotics Received/Current Regimen: 750mg iv x 1 post dialysis on 01.29.21 Labs: Sodium 134 mmol/L (136-145) L 01/30/21 03:35 Potassium 3.9 mmol/L (3.5-5.1) 01/30/21 03:35 Chloride 100 mmol/L (98-107) 01/30/21 03:35 Carbon Dioxide 26.0 mmol/L (21.0-32.0) 01/30/21 03:35 Anion Gap 8 (5-15) 01/30/21 03:35 BUN 74 mg/dL (7-18) H 01/30/21 03:35 Creatinine 5.30 mg/dL (0.70-1.30) H 01/30/21 03:35 Est GFR (MDRD) Af Amer 14 mL/min (>60) L 01/30/21 03:35 Est GFR (MDRD) Non-Af 12 mL/min (>60) L 01/30/21 03:35 BUN/Creatinine Ratio 14.0 RATIO (10-20) 01/30/21 03:35 Glucose 139 mg/dL (74-106) H 01/30/21 03:35 Random Vancomycin 15.7 ug/mL (0.0-15.0) H 01/30/21 10:00 Microbiology: Microbiology 01/27/21 04:15 Blood Culture (Wb) - Central Line Blood Culture - Preliminary No growth in 48 hours. 01/26/21 22:45 Blood Culture (Wb) - Anticubital Left Blood Culture - Preliminary Coag Negative Staph 01/27/21 00:14 Urine, Clean Catch Urine Culture - Final Enterococcus faecalis 01/27/21 08:00 Stool Enteric Bacteriology - Final 01/27/21 08:00 Stool C. difficile DNA Amplification - Final 01/26/21 22:50 Nasal Secretion SARS-CoV-2 Antigen (Rapid) - Final Weight used for dosin kg Estimated Creatinine Clearance: ~12ml/min Goal Trough: 15-20 mcg/mL Pharmacy Plan for Drug Dosing: Random level today pre-dialysis was 15.7. This level was ~14 hrs post last dose. Have ordered 750mg iv x 1 post dialysis today per protocol. No further dialysis schedule known at this time. Will need to contact ICU daily to check on dialysis schedule and get random level prior to dialysis sessions to determine dosing. Pharmacy Service will continue to monitor and adjust dosing as required.
[2021-01-30 11:55] LABS: Bedside Glucose 157 mg/dL (70-110)
--- NOTE | 2021-01-30 12:27 | PCM.PN.INT ---
Assessment & Plan Assessment/Plan (1) Sepsis secondary to UTI: (2) Hypoglycemia associated with type 2 diabetes mellitus: (3) Acute renal failure: QUALIFIERS: Acute renal failure type: unspecified Qualified Code(s): N17.9 - Acute kidney failure, unspecified PLAN: RECOMMENDATIONS: 1. Continue vasopressor support to maintain a mean arterial pressure at or above 65 mmHg. 2. Continue antimicrobials. 3. Continue hemodialysis support per nephrology recommendations. 4. Start scheduled midodrine. 5. Encourage incentive spirometer use and mobilize patient as tolerated. 6. Continue appropriate DVT prophylaxis. IMPRESSIONS: 1. Septic shock secondary to Enterococcus UTI Slow clinical improvement noted. Although the patient was able to be transiently weaned from vasopressor support this morning, Levophed had to be restarted upon initiation of hemodialysis. Plan to continue vasopressor support to maintain a mean arterial pressure at or above 65 mmHg. The patient will remain on appropriate antimicrobials, dosed by pharmacy. We will start scheduled midodrine today as well to assist with weaning from vasopressor support. 2. Acute kidney injury likely secondary to ischemic ATN in the setting #1 Nephrology is currently following to assist with hemodialysis needs. 3. Diabetes mellitus Continue basal and sliding scale insulin coverage. 4. Obesity/advanced age/poor primary follow-up Complicates care, management, recovery and prognosis. Continue supportive measures as noted above. TIME: 33 minutes of critical care time, independent of procedures, was spent addressing the patient's septic shock, acute kidney injury, review of all data and collaboration with the care team. Subjective Subjective The patient was seen and examined at the bedside this morning. Events from the last 24 hours have been reviewed. The patient is currently afebrile and maintaining appropriate oxygen saturations on 4 L/min. Although he was transiently able to be weaned from vasopressor support this morning, upon the initiation of hemodialysis, Levophed had to be restarted. The patient is currently requiring Levophed at 5 mcg/min to maintain hemodynamic stability. He is currently documented to be overall net +7.5 L for the hospitalization. The patient remains on antimicrobials. White count is elevated at 20,000. Hemoglobin is down to 8.7 g/dL this morning. Objective Data Objective Data The patient's most recent lab work, culture data and imaging studies have all been personally reviewed. Surface echocardiogram dated January 27 demonstrated an ejection fraction of 55 to 60%. Urine culture dated January 27 was positive for pansensitive Enterococcus faecalis. Vital Signs: Vital Signs Temp Pulse Resp BP Pulse Ox 98.1 F 117 H 15 98/69 95 01/30/21 12:00 01/30/21 12:00 01/30/21 12:00 01/30/21 12:00 01/30/21 12:00 Oxygen Flow Rate (L/min) 4 Oxygen Delivery Method Nasal Cannula Weight: 105.8 kg Body Mass Index (BMI) 34.7 Intake & Output: Intake and Output for Last 24 Hours 01/28/21 01/29/21 01/30/21 23:59 23:59 23:59 Intake Total 2517.66 / 2672.66 1577.71 / 1581.51 446.20 / 446.20 Output Total 700 / 1100 1375 / 1375 450 / 450 Balance 1817.66 / 1572.66 202.71 / 206.51 -3.80 / -3.80 Medical Nutrition Assessment Dietitian: Malnutrition Criteria Met Start: 01/27/21 13:38 Freq: Status: Active Protocol: Document 01/28/21 16:32 RMA (Rec: 01/28/21 16:33 RMA [id number]) Nutrition Malnutrition Evidence of Malnutrition Exists Yes Malnutrition (severe): Acute Illness/Injury Evidenced By Suboptimal Energy Intake ( Severe),Weight Loss (Severe) Clinical Problem Acute Disease or Injury Related Malnutrition Etiology Severe protein-calorie malnutrition in the context of acute disease related to infection, poor appetite, inadequate oral intake Signs/Symptoms as evidenced by poor intake x 3-4 weeks, PO meeting less than 50% estimated nutrition needs and wt loss~10-11% x past month Status Active Problem Recommendation Dietitian Recommendations/Changes General Renal/Consistent Carbohydrate diet. Will continue 120ml Nepro supplement TID w/ meals and fortified pudding BID w/ lunch and dinner. Suggest DIE STORAGE CLERK evaluation for swallowing as needed. Lab / Micro Data Attestation: I reviewed the patient's lab results. Result Diagrams: 01/30/21 03:35 01/30/21 03:35 Labs: Laboratory Results - last 24 hr 01/26/21 21:45: Diff Path Review Reviewed 01/29/21 16:37: POC Glucose 197 H 01/29/21 20:26: POC Glucose 201 H 01/30/21 03:35: WBC 20.3 H, RBC 3.19 L, Hgb 8.7 L, Hct 27.0 L, MCV 84.6, MCH 27.3, MCHC 32.2, RDW Std Deviation 45.8 H, RDW Coeff of Flaco 14.7 H, Plt Count 305, MPV 8.9, Immature Gran % (Auto) INSTRUCTOR PSYCHIATRIC AIDE, Neut % (Auto) INSTRUCTOR PSYCHIATRIC AIDE, Lymph % (Auto) INSTRUCTOR PSYCHIATRIC AIDE, [place] % (Auto) INSTRUCTOR PSYCHIATRIC AIDE, Eos % (Auto) INSTRUCTOR PSYCHIATRIC AIDE, Baso % (Auto) INSTRUCTOR PSYCHIATRIC AIDE, Absolute Neuts (auto) 18.2 H, Absolute Lymphs (auto) 1.21, Total Counted INSTRUCTOR PSYCHIATRIC AIDE, Neutrophils % (Manual) 87 H, Band Neutrophils % 3, Lymphocytes % (Manual) 6 L, Eosinophils % (Manual) 1, Metamyelocytes % 3 H, Nucleated RBC % INSTRUCTOR PSYCHIATRIC AIDE, Diff Path Review June, Platelet Estimate ADEQUATE, RBC Morphology NORM C+C 01/30/21 03:35: Sodium 134 L, Potassium 3.9, Chloride 100, Carbon Dioxide 26.0, Anion Gap 8, BUN 74 H, Creatinine 5.30 H, Estim Creat Clear Calc 12.13, Est GFR (MDRD) Af Amer 14 L, Est GFR (MDRD) Non-Af 12 L, BUN/Creatinine Ratio 14.0, Glucose 139 H, Calcium 9.2, Total Bilirubin 0.50, AST 11 L, ALT 22, Alkaline Phosphatase 152 H, Total Protein 6.1 L, Albumin 1.6 L, Globulin 4.5 H, Albumin/Globulin Ratio 0.4 L 01/30/21 07:52: POC Glucose 142 H 01/30/21 10:00: Random Vancomycin 15.7 H 01/30/21 11:18: POC Glucose 157 H Micro: Microbiology 01/27/21 04:15 Blood Culture (Wb) - Central Line Blood Culture - Preliminary No growth in 48 hours. 01/26/21 22:45 Blood Culture (Wb) - Anticubital Left Blood Culture - Preliminary Coag Negative Staph 01/27/21 00:14 Urine, Clean Catch Urine Culture - Final Enterococcus faecalis 01/27/21 08:00 Stool Enteric Bacteriology - Final 01/27/21 08:00 Stool C. difficile DNA Amplification - Final 01/26/21 22:50 Nasal Secretion SARS-CoV-2 Antigen (Rapid) - Final Rhythm Strip Rhythm Strip: A-fib Rate: 110 Ectopy: PVC(s) Physical Exam Const alert and no apparent distress Nutritional Appearance: obese HEENT normocephalic, head/scalp atraumatic and moist oral mucous membranes Eyes PERRL and EOMs intact bilaterally Neck supple General: trachea midline and CVC in place Chest inspection of chest normal Resp normal respiratory effort Auscultation: Negative for rales, rhonchi or wheezes Cardio S1 normal heart sound and S2 normal heart sound Rate: tachycardic GI normal to inspection, nondistended, normoactive bowel sounds Extremity General Extremity: edema; Negative for clubbing Skin no rashes or lesions noted Neuro no focal motor deficits Psych cooperative Charges/Coding Procedures Hospitalists Procedures: [id number] Critial Care 1st Hr
--- NOTE | 2021-01-30 12:35 | PN.RENAL_ITS ---
Objective Data Objective Data Vital Signs: Vital Signs Temp Pulse Resp BP Pulse Ox 98.1 F 117 H 15 98/69 95 01/30/21 12:00 01/30/21 12:00 01/30/21 12:00 01/30/21 12:00 01/30/21 12:00 Oxygen Flow Rate (L/min) 4 Oxygen Delivery Method Nasal Cannula Weight: 105.8 kg Body Mass Index (BMI) 34.7 Intake & Output: Intake and Output for Last 24 Hours 01/28/21 01/29/21 01/30/21 23:59 23:59 23:59 Intake Total 2517.66 / 2672.66 1577.71 / 1581.51 446.20 / 446.20 Output Total 700 / 1100 1375 / 1375 450 / 450 Balance 1817.66 / 1572.66 202.71 / 206.51 -3.80 / -3.80 Medical Nutrition Assessment Dietitian: Malnutrition Criteria Met Start: 01/27/21 13:38 Freq: Status: Active Protocol: Document 01/28/21 16:32 RMA (Rec: 01/28/21 16:33 RMA [id number]) Nutrition Malnutrition Evidence of Malnutrition Exists Yes Malnutrition (severe): Acute Illness/Injury Evidenced By Suboptimal Energy Intake ( Severe),Weight Loss (Severe) Clinical Problem Acute Disease or Injury Related Malnutrition Etiology Severe protein-calorie malnutrition in the context of acute disease related to infection, poor appetite, inadequate oral intake Signs/Symptoms as evidenced by poor intake x 3-4 weeks, PO meeting less than 50% estimated nutrition needs and wt loss~10-11% x past month Status Active Problem Recommendation Dietitian Recommendations/Changes General Renal/Consistent Carbohydrate diet. Will continue 120ml Nepro supplement TID w/ meals and fortified pudding BID w/ lunch and dinner. Suggest REGISTERED NURSE PRACTITIONER evaluation for swallowing as needed. Lab / Micro Data Result Diagrams: 01/30/21 03:35 01/30/21 03:35 Labs: Laboratory Results - last 24 hr 01/26/21 21:45: Diff Path Review Reviewed 01/29/21 16:37: POC Glucose 197 H 01/29/21 20:26: POC Glucose 201 H 01/30/21 03:35: WBC 20.3 H, RBC 3.19 L, Hgb 8.7 L, Hct 27.0 L, MCV 84.6, MCH 27.3, MCHC 32.2, RDW Std Deviation 45.8 H, RDW Coeff of Flaco 14.7 H, Plt Count 305, MPV 8.9, Immature Gran % (Auto) FIELD CROP HARVEST CONTRACTOR, Neut % (Auto) FIELD CROP HARVEST CONTRACTOR, Lymph % (Auto) FIELD CROP HARVEST CONTRACTOR, [place] % (Auto) FIELD CROP HARVEST CONTRACTOR, Eos % (Auto) FIELD CROP HARVEST CONTRACTOR, Baso % (Auto) FIELD CROP HARVEST CONTRACTOR, Absolute Neuts (auto) 18.2 H, Absolute Lymphs (auto) 1.21, Total Counted FIELD CROP HARVEST CONTRACTOR, Neutrophils % (Manual) 87 H, Band Neutrophils % 3, Lymphocytes % (Manual) 6 L, Eosinophils % (Manual) 1, Metamyelocytes % 3 H, Nucleated RBC % FIELD CROP HARVEST CONTRACTOR, Diff Path Review June, Platelet Estimate ADEQUATE, RBC Morphology NORM C+C 01/30/21 03:35: Sodium 134 L, Potassium 3.9, Chloride 100, Carbon Dioxide 26.0, Anion Gap 8, BUN 74 H, Creatinine 5.30 H, Estim Creat Clear Calc 12.13, Est GFR (MDRD) Af Amer 14 L, Est GFR (MDRD) Non-Af 12 L, BUN/Creatinine Ratio 14.0, Glucose 139 H, Calcium 9.2, Total Bilirubin 0.50, AST 11 L, ALT 22, Alkaline Phosphatase 152 H, Total Protein 6.1 L, Albumin 1.6 L, Globulin 4.5 H, Albumin/Globulin Ratio 0.4 L 01/30/21 07:52: POC Glucose 142 H 01/30/21 10:00: Random Vancomycin 15.7 H 01/30/21 11:18: POC Glucose 157 H Micro: Microbiology 01/27/21 04:15 Blood Culture (Wb) - Central Line Blood Culture - Preliminary No growth in 48 hours. 01/26/21 22:45 Blood Culture (Wb) - Anticubital Left Blood Culture - Preliminary Coag Negative Staph 01/27/21 00:14 Urine, Clean Catch Urine Culture - Final Enterococcus faecalis 01/27/21 08:00 Stool Enteric Bacteriology - Final 01/27/21 08:00 Stool C. difficile DNA Amplification - Final 01/26/21 22:50 Nasal Secretion SARS-CoV-2 Antigen (Rapid) - Final Rhythm Strip Rhythm Strip: A-fib Rate: 110 Ectopy: PVC(s)
--- NOTE | 2021-01-30 12:36 | PN.RENAL_ITS ---
Objective Data Objective Data Vital Signs: Vital Signs Temp Pulse Resp BP Pulse Ox 98.1 F 117 H 15 98/69 95 01/30/21 12:00 01/30/21 12:00 01/30/21 12:00 01/30/21 12:00 01/30/21 12:00 Oxygen Flow Rate (L/min) 4 Oxygen Delivery Method Nasal Cannula Weight: 105.8 kg Body Mass Index (BMI) 34.7 Intake & Output: Intake and Output for Last 24 Hours 01/28/21 01/29/21 01/30/21 23:59 23:59 23:59 Intake Total 2517.66 / 2672.66 1577.71 / 1581.51 446.20 / 446.20 Output Total 700 / 1100 1375 / 1375 450 / 450 Balance 1817.66 / 1572.66 202.71 / 206.51 -3.80 / -3.80 Medical Nutrition Assessment Dietitian: Malnutrition Criteria Met Start: 01/27/21 13:38 Freq: Status: Active Protocol: Document 01/28/21 16:32 RMA (Rec: 01/28/21 16:33 RMA [id number]) Nutrition Malnutrition Evidence of Malnutrition Exists Yes Malnutrition (severe): Acute Illness/Injury Evidenced By Suboptimal Energy Intake ( Severe),Weight Loss (Severe) Clinical Problem Acute Disease or Injury Related Malnutrition Etiology Severe protein-calorie malnutrition in the context of acute disease related to infection, poor appetite, inadequate oral intake Signs/Symptoms as evidenced by poor intake x 3-4 weeks, PO meeting less than 50% estimated nutrition needs and wt loss~10-11% x past month Status Active Problem Recommendation Dietitian Recommendations/Changes General Renal/Consistent Carbohydrate diet. Will continue 120ml Nepro supplement TID w/ meals and fortified pudding BID w/ lunch and dinner. Suggest SENIOR IT SPECIALIST evaluation for swallowing as needed. Lab / Micro Data Result Diagrams: 01/30/21 03:35 01/30/21 03:35 Labs: Laboratory Results - last 24 hr 01/26/21 21:45: Diff Path Review Reviewed 01/29/21 16:37: POC Glucose 197 H 01/29/21 20:26: POC Glucose 201 H 01/30/21 03:35: WBC 20.3 H, RBC 3.19 L, Hgb 8.7 L, Hct 27.0 L, MCV 84.6, MCH 27.3, MCHC 32.2, RDW Std Deviation 45.8 H, RDW Coeff of Flaco 14.7 H, Plt Count 305, MPV 8.9, Immature Gran % (Auto) HUMAN MACHINE INTERFACE ENGINEER, Neut % (Auto) HUMAN MACHINE INTERFACE ENGINEER, Lymph % (Auto) HUMAN MACHINE INTERFACE ENGINEER, [place] % (Auto) HUMAN MACHINE INTERFACE ENGINEER, Eos % (Auto) HUMAN MACHINE INTERFACE ENGINEER, Baso % (Auto) HUMAN MACHINE INTERFACE ENGINEER, Absolute Neuts (auto) 18.2 H, Absolute Lymphs (auto) 1.21, Total Counted HUMAN MACHINE INTERFACE ENGINEER, Neutrophils % (Manual) 87 H, Band Neutrophils % 3, Lymphocytes % (Manual) 6 L, Eosinophils % (Manual) 1, Metamyelocytes % 3 H, Nucleated RBC % HUMAN MACHINE INTERFACE ENGINEER, Diff Path Review June, Platelet Estimate ADEQUATE, RBC Morphology NORM C+C 01/30/21 03:35: Sodium 134 L, Potassium 3.9, Chloride 100, Carbon Dioxide 26.0, Anion Gap 8, BUN 74 H, Creatinine 5.30 H, Estim Creat Clear Calc 12.13, Est GFR (MDRD) Af Amer 14 L, Est GFR (MDRD) Non-Af 12 L, BUN/Creatinine Ratio 14.0, Glucose 139 H, Calcium 9.2, Total Bilirubin 0.50, AST 11 L, ALT 22, Alkaline Phosphatase 152 H, Total Protein 6.1 L, Albumin 1.6 L, Globulin 4.5 H, Albumin/Globulin Ratio 0.4 L 01/30/21 07:52: POC Glucose 142 H 01/30/21 10:00: Random Vancomycin 15.7 H 01/30/21 11:18: POC Glucose 157 H Micro: Microbiology 01/27/21 04:15 Blood Culture (Wb) - Central Line Blood Culture - Preliminary No growth in 48 hours. 01/26/21 22:45 Blood Culture (Wb) - Anticubital Left Blood Culture - Preliminary Coag Negative Staph 01/27/21 00:14 Urine, Clean Catch Urine Culture - Final Enterococcus faecalis 01/27/21 08:00 Stool Enteric Bacteriology - Final 01/27/21 08:00 Stool C. difficile DNA Amplification - Final 01/26/21 22:50 Nasal Secretion SARS-CoV-2 Antigen (Rapid) - Final Rhythm Strip Rhythm Strip: A-fib Rate: 110 Ectopy: PVC(s) Physical Exam Narrative Alert awake oriented x 3 no obvious distress no pallor no icterus no JVD s1s2 no murmurs lungs clear abdomen soft no organomegaly no edema no cyanosis fontenot + Assessment & Plan Assessment/Plan (1) Acute renal failure: QUALIFIERS: Acute renal failure type: unspecified Qualified Code(s): N17.9 - Acute kidney failure, unspecified PLAN: New onset. Last known baseline creatinine is from February 2020 and it was 0.81. History of hypertension, was on lisinopril and hydrochlorothiazide. History of diabetes on Metformin and glipizide. Urine analysis is fairly dirty with leukocytes, RBCs, bacteria. He is currently being treated with ceftriaxone for suspected UTI/pyelonephritis Renal ultrasound ordered. Fontenot catheter in place and is draining dark brown- colored urine. Most likely ATN urine Continue fluid resuscitation Due to advanced acidemia, acidosis, will plan for dialysis today. Dialysis catheter has been placed by ICU team Discussed with dialysis staff Metabolic acidosis. With lactic acidosis. Likely septic shock related. Overall better with fluid resuscitation. He was also on Metformin prior to admission Hypotension. Likely sepsis related. WBC count is fairly high. C. difficile negative. Management as per ICU team (2) Uremia of renal origin: (3) Hyperkalemia, diminished renal excretion:
[2021-01-30] MEDS: Heparin 10,000 UNITS/10 ML Vial IV (13:15)
--- NOTE | 2021-01-30 13:29 | PCM.PN.HOSP ---
Subjective Subjective Patient seen and examined. He had no active complaints and felt better. However he remains hypotensive and remains on Levophed. Review of systems otherwise negative. Objective Data Objective Data Vital Signs: Vital Signs Temp Pulse Resp BP Pulse Ox 98.1 F 117 H 18 88/55 L 96 01/30/21 13:00 01/30/21 13:00 01/30/21 13:00 01/30/21 13:00 01/30/21 13:00 Oxygen Flow Rate (L/min) 4 Oxygen Delivery Method Nasal Cannula Weight: 233 lb 3.985 oz Body Mass Index (BMI) 34.7 Intake & Output: Intake and Output for Last 24 Hours 01/28/21 01/29/21 01/30/21 23:59 23:59 23:59 Intake Total 2517.66 / 2672.66 1577.71 / 1581.51 455.60 / 455.60 Output Total 700 / 1100 1375 / 1375 450 / 450 Balance 1817.66 / 1572.66 202.71 / 206.51 5.60 / 5.60 Medical Nutrition Assessment Dietitian: Malnutrition Criteria Met Start: 01/27/21 13:38 Freq: Status: Active Protocol: Document 01/28/21 16:32 RMA (Rec: 01/28/21 16:33 RMA [id number]) Nutrition Malnutrition Evidence of Malnutrition Exists Yes Malnutrition (severe): Acute Illness/Injury Evidenced By Suboptimal Energy Intake ( Severe),Weight Loss (Severe) Clinical Problem Acute Disease or Injury Related Malnutrition Etiology Severe protein-calorie malnutrition in the context of acute disease related to infection, poor appetite, inadequate oral intake Signs/Symptoms as evidenced by poor intake x 3-4 weeks, PO meeting less than 50% estimated nutrition needs and wt loss~10-11% x past month Status Active Problem Recommendation Dietitian Recommendations/Changes General Renal/Consistent Carbohydrate diet. Will continue 120ml Nepro supplement TID w/ meals and fortified pudding BID w/ lunch and dinner. Suggest BUYING INTERN evaluation for swallowing as needed. Lab / Micro Data Result Diagrams: 01/30/21 03:35 01/30/21 03:35 Labs: Laboratory Results - last 24 hr 01/26/21 21:45: Diff Path Review Reviewed 01/29/21 16:37: POC Glucose 197 H 01/29/21 20:26: POC Glucose 201 H 01/30/21 03:35: WBC 20.3 H, RBC 3.19 L, Hgb 8.7 L, Hct 27.0 L, MCV 84.6, MCH 27.3, MCHC 32.2, RDW Std Deviation 45.8 H, RDW Coeff of Flaco 14.7 H, Plt Count 305, MPV 8.9, Immature Gran % (Auto) SEWING MACHINE OPERATOR FLOORPERSON, Neut % (Auto) SEWING MACHINE OPERATOR FLOORPERSON, Lymph % (Auto) SEWING MACHINE OPERATOR FLOORPERSON, [place] % (Auto) SEWING MACHINE OPERATOR FLOORPERSON, Eos % (Auto) SEWING MACHINE OPERATOR FLOORPERSON, Baso % (Auto) SEWING MACHINE OPERATOR FLOORPERSON, Absolute Neuts (auto) 18.2 H, Absolute Lymphs (auto) 1.21, Total Counted SEWING MACHINE OPERATOR FLOORPERSON, Neutrophils % (Manual) 87 H, Band Neutrophils % 3, Lymphocytes % (Manual) 6 L, Eosinophils % (Manual) 1, Metamyelocytes % 3 H, Nucleated RBC % SEWING MACHINE OPERATOR FLOORPERSON, Diff Path Review June, Platelet Estimate ADEQUATE, RBC Morphology NORM C+C 01/30/21 03:35: Sodium 134 L, Potassium 3.9, Chloride 100, Carbon Dioxide 26.0, Anion Gap 8, BUN 74 H, Creatinine 5.30 H, Estim Creat Clear Calc 12.13, Est GFR (MDRD) Af Amer 14 L, Est GFR (MDRD) Non-Af 12 L, BUN/Creatinine Ratio 14.0, Glucose 139 H, Calcium 9.2, Total Bilirubin 0.50, AST 11 L, ALT 22, Alkaline Phosphatase 152 H, Total Protein 6.1 L, Albumin 1.6 L, Globulin 4.5 H, Albumin/Globulin Ratio 0.4 L 01/30/21 07:52: POC Glucose 142 H 01/30/21 10:00: Random Vancomycin 15.7 H 01/30/21 11:18: POC Glucose 157 H Micro: Microbiology 01/27/21 04:15 Blood Culture (Wb) - Central Line Blood Culture - Preliminary No growth in 48 hours. 01/26/21 22:45 Blood Culture (Wb) - Anticubital Left Blood Culture - Preliminary Coag Negative Staph 01/27/21 00:14 Urine, Clean Catch Urine Culture - Final Enterococcus faecalis 01/27/21 08:00 Stool Enteric Bacteriology - Final 01/27/21 08:00 Stool C. difficile DNA Amplification - Final 01/26/21 22:50 Nasal Secretion SARS-CoV-2 Antigen (Rapid) - Final Rhythm Strip Rhythm Strip: A-fib Rate: 110 Ectopy: PVC(s) Physical Exam Const alert, oriented x3 and no apparent distress HEENT head/scalp atraumatic, moist oral mucous membranes and oropharynx normal Head and Scalp: normocephalic Eyes PERRL, EOMs intact bilaterally and conjunctivae normal Neck no lymphadenopathy, supple and no JVD Resp normal respiratory effort, no retractions, no use of accessory muscles and clear to auscultation bilaterally Cardio regular rate, regular rhythm, S1 normal heart sound, S2 normal heart sound and no murmurs GI normal to inspection, nondistended, normoactive bowel sounds, soft to palpation, non-tender and non-distended Extremity normal to inspection, full ROM and no clubbing, cyanosis or edema Peripheral Pulses: Yes pulses 2+ throughout Skin no rashes or lesions noted Neuro oriented x3, CN's II-XII intact bilaterally and moves all extremities Sensorium / Orientation: awake Psych affect normal Assessment & Plan Assessment/Plan (1) Septic shock: (2) Acute renal failure: QUALIFIERS: Acute renal failure type: unspecified Qualified Code(s): N17.9 - Acute kidney failure, unspecified PLAN: #Septic shock due to UTI Remains on Levophed. On IV vancomycin as urine culture grew Enterococcus faecalis Repeat blood cultures showed no growth after 48 hours.. Titrate Levophed to maintain MAP more than 65 On IV ceftriaxone Started on midodrine today. #HELENA Has a urine catheter in place. Creatinine is improving. Nephrology on board and thinks it is ATN Has a dialysis catheter in place #Hyperkalemia: Resolved #A. fib: Was in RVR which has resolved. #Acute metabolic encephalopathy: Resolved #Type 2 diabetes mellitus: Home oral meds on hold. On Lantus 30 units with breakfast. Insulin sliding scale. Checks AC at bedtime. #Hyperlipidemia: On statin DVT prophylaxis: Heparin Charges/Coding Visit Charges Inpatient E&M: 64226 [facility] L3
[2021-01-30] MEDS: Heparin Injection (Vial) 5,000 UNIT/ML VIAL 5000 UNIT SC ×2 (15:12→21:12)
[2021-01-30] MEDS: Midodrine HCl 5 MG Tablet 10 MG PO (16:58)
[2021-01-30 17:41] LABS: Bedside Glucose 141 mg/dL (70-110)
[2021-01-30 21:11] LABS: Bedside Glucose 228 mg/dL (70-110)
[2021-01-31] VITALS (46 sets, daily range): BP systolic 89–126; BP diastolic 56–93; PULSE 93–115; RESP 16–26; TEMP 37.2–37.8; O2SAT 89–97
[2021-01-31 03:14] LABS: Hematocrit 25.5 % (40-54); Hemoglobin 8.2 g/dL (13.0-16.5); Mean Corp Hgb Conc 32.2 g/dL (32-36); Mean Corpuscular Hgb 27.7 pg (27.0-32.0); Mean Corpuscular Volume 86.1 fL (80-94); POSITIVE COUNT YES; POSITIVE DIFFERENTIAL YES; POSITIVE MORPHOLOGY YES; Platelet Count 314 K/mm3 (150-450); RBC Distribution Width CV 14.7 % (11.6-14.6); RBC Distribution Width SD 46.6 fl (35.1-43.9); Red Blood Count 2.96 M/mm3 (4.6-6.2); White Blood Count 14.7 K/mm3 (4.4-11.0)
[2021-01-31 03:25] LABS: Differential Indicated MANUAL DIFF
[2021-01-31 03:31] LABS: Anion Gap 9 (5-15); BUN 47 mg/dL (7-18); BUN/Creat Ratio 12.6 RATIO (10-20); Calcium,Total 8.9 mg/dL (8.5-10.1); Chloride 100 mmol/L (98-107); Creatinine, Serum 3.72 mg/dL (0.70-1.30); EST Glomerular Filtration Rate 17 mL/min (>60); Est Glom Filt Rate - Afr Amer 21 mL/min (>60); Estimated Creatinine Clearance 17.28 ml/min; Glucose 186 mg/dL (74-106); Potassium 4.1 mmol/L (3.5-5.1); Sodium Level 136 mmol/L (136-145)
[2021-01-31 04:24] LABS: Absolute Neutrophil Count 11.3 X10^3/uL (2.0-7.7)
[2021-01-31 04:25] LABS: Absolute Lymphocyte Count 1.17 X10^3/uL (0.83-4.51); Eosinophil 3 % (0-5); Lymphocyte 8 % (19-41); Metamyelocyte 2 % (0-1); Monocyte 8 % (0-10); Myelocyte 2 % (0-0); Neutrophil-Band 8 % (0-5); Neutrophil-Segmented 69 % (47-70); Platelet Estimate ADEQUATE (ADEQ); Total Cells Counted 100 (MANUAL DIFF)
[2021-01-31 04:26] LABS: Anisocytosis 1+; Red Cell Morphology NORM C+C NORMAL (NORM C&C)
[2021-01-31] MEDS: Heparin Injection (Vial) 5,000 UNIT/ML VIAL 5000 UNIT SC ×3 (06:08→20:47)
[2021-01-31] MEDS: Acetaminophen 325 MG Tablet 650 MG PO ×2 (06:08→16:24)
[2021-01-31] MEDS: Insulin Lispro 100 UNIT/ML INSULN.PEN SC ×7 (08:16→20:47)
[2021-01-31] MEDS: Ferrous Sulfate 325 MG Tablet PO (08:17)
[2021-01-31] MEDS: Midodrine HCl 5 MG Tablet 10 MG PO ×3 (08:17→16:32)
[2021-01-31] MEDS: Neomycin/Bacitracin/Polymyxin Opth. Ointment 1 APPLIC RIGHT EYE ×2 (08:18→20:54)
[2021-01-31] MEDS: Pravastatin 20 MG Tablet PO (08:18)
[2021-01-31 08:25] LABS: Bedside Glucose 157 mg/dL (70-110)
[2021-01-31 08:59] LABS: Pathologist Review Reviewed
[2021-01-31 09:09] LABS: Pathologist Review Reviewed
[2021-01-31 09:23] LABS: Pathologist Review Reviewed
--- NOTE | 2021-01-31 09:40 | CASEMGMT ---
Addendum entered by Kathie Erwin 01/31/21 10:39: SW spoke w/pt after therapy, pt continues to plan to go home or go to his brother's at discharge. Pt states by the time I'm ready to go, I'm gonna walk out of here. SW asked if his children help him w/medical decisions, pt states no, he is his own person. He states his daughter is on vacation, but when she is in town she is very helpful to him. SW explained will keep checking back in w/him. SW will continue to follow. ZARINA Oneill Original Note: Social Work SW spoke w/pt again in regard to going to a fpc facility. Pt states, I don't want to go if I don't have to. SW explained concern about him going home alone, as he is weak and not getting around well. Pt states he will go to his brother's and father's home in [place] if he cannot go home. SW inquired if pt's brother can help pt physically. Pt states yes, he states his brother is bigger than me, and younger than me. Pt states it's too soon to think about as he is nowhere near ready for discharge. Pt states that he just wants to get back to bed, doesn't want to be up in the chair, has continued to minimally participate in therapy. SW inquired why, pt states, if you felt as bad as me, you would understand. SW explained to pt will come back later today or tomorrow to review options again, pt states understanding. SW spoke w/RN, pt's children have been calling in to check on pt. Pt does not want to speak w/them, but has been okay with them getting information. SW will call children, should it become necessary, if pt gives permission, to continue discharge planning. Pt is alert and oriented at this time, no POA/LW on file, and as per CM note, he has not completed these documents. SW will continue to follow. ZARINA Oneill
[2021-01-31 11:40] LABS: Bedside Glucose 250 mg/dL (70-110)
--- NOTE | 2021-01-31 12:49 | PN.HOSP_ITS ---
Subjective Subjective Patient seen and examined. He complains of back pain which he thinks is due to his uncomfortable bed.. He was off Levophed. Still has a low-grade fever of 99.3 Fahrenheit and remains tachypneic and tachycardic. Review of systems otherwise negative. Objective Data Objective Data Vital Signs: Vital Signs Temp Pulse Resp BP Pulse Ox 99.3 F H 115 H 20 H 100/75 97 01/31/21 12:00 01/31/21 12:00 01/31/21 12:00 01/31/21 12:00 01/31/21 12:00 Oxygen Flow Rate (L/min) 2 Oxygen Delivery Method Nasal Cannula Weight: 231 lb 14.821 oz Body Mass Index (BMI) 34.7 Intake & Output: Intake and Output for Last 24 Hours 01/29/21 01/30/21 01/31/21 23:59 23:59 23:59 Intake Total 1577.71 / 1581.51 933.66 / 943.06 756.34 / 756.34 Output Total 1375 / 1375 875 / 875 600 / 600 Balance 202.71 / 206.51 58.66 / 68.06 156.34 / 156.34 Medical Nutrition Assessment Dietitian: Malnutrition Criteria Met Start: 01/27/21 13:38 Freq: Status: Active Protocol: Document 01/28/21 16:32 RMA (Rec: 01/28/21 16:33 RMA [id number]) Nutrition Malnutrition Evidence of Malnutrition Exists Yes Malnutrition (severe): Acute Illness/Injury Evidenced By Suboptimal Energy Intake ( Severe),Weight Loss (Severe) Clinical Problem Acute Disease or Injury Related Malnutrition Etiology Severe protein-calorie malnutrition in the context of acute disease related to infection, poor appetite, inadequate oral intake Signs/Symptoms as evidenced by poor intake x 3-4 weeks, PO meeting less than 50% estimated nutrition needs and wt loss~10-11% x past month Status Active Problem Recommendation Dietitian Recommendations/Changes General Renal/Consistent Carbohydrate diet. Will continue 120ml Nepro supplement TID w/ meals and fortified pudding BID w/ lunch and dinner. Suggest [employer] evaluation for swallowing as needed. Lab / Micro Data Result Diagrams: 01/31/21 03:05 01/31/21 03:05 Labs: Laboratory Results - last 24 hr 01/28/21 04:19: Diff Path Review Reviewed 01/29/21 02:22: Diff Path Review Reviewed 01/30/21 03:35: Diff Path Review Reviewed 01/30/21 16:55: POC Glucose 141 H 01/30/21 21:03: POC Glucose 228 H 01/31/21 03:05: WBC 14.7 H, RBC 2.96 L, Hgb 8.2 L, Hct 25.5 L, MCV 86.1, MCH 27.7, MCHC 32.2, RDW Std Deviation 46.6 H, RDW Coeff of Flaco 14.7 H, Plt Count 314, MPV 9.0, Neut % (Auto) Not Reportable, Absolute Neuts (auto) 11.3 H, Absolute Lymphs (auto) 1.17, Total Counted 100, Neutrophils % (Manual) 69, Band Neutrophils % 8 H, Lymphocytes % (Manual) 8 L, Monocytes % (Manual) 8, Eosinophils % (Manual) 3, Metamyelocytes % 2 H, Myelocytes % 2 H, Diff Path Review May foll, Platelet Estimate ADEQUATE, RBC Morphology NORM C+C, Anisocyt osis 1+ 01/31/21 03:05: Sodium 136, Potassium 4.1, Chloride 100, Carbon Dioxide 27.0, Anion Gap 9, BUN 47 H, Creatinine 3.72 H, Estim Creat Clear Calc 17.28, Est GFR (MDRD) Af Amer 21 L, Est GFR (MDRD) Non-Af 17 L, BUN/Creatinine Ratio 12.6, Glucose 186 H, Calcium 8.9 01/31/21 08:11: POC Glucose 157 H 01/31/21 11:32: POC Glucose 250 H Micro: Microbiology 01/26/21 22:45 Blood Culture (Wb) - Anticubital Left Blood Culture - Final Staphylococcus hominis hominis 01/27/21 04:15 Blood Culture (Wb) - Central Line Blood Culture - Preliminary No growth in 48 hours. 01/27/21 00:14 Urine, Clean Catch Urine Culture - Final Enterococcus faecalis 01/27/21 08:00 Stool Enteric Bacteriology - Final 01/27/21 08:00 Stool C. difficile DNA Amplification - Final 01/26/21 22:50 Nasal Secretion SARS-CoV-2 Antigen (Rapid) - Final Rhythm Strip Rhythm Strip: A-fib Rate: 110 Ectopy: PVC(s) Physical Exam Const alert, oriented x3 and no apparent distress HEENT head/scalp atraumatic, moist oral mucous membranes and oropharynx normal Head and Scalp: normocephalic Eyes PERRL, EOMs intact bilaterally and conjunctivae normal Neck no lymphadenopathy, supple and no JVD Resp normal respiratory effort, no retractions, no use of accessory muscles and clear to auscultation bilaterally Cardio regular rate, regular rhythm, S1 normal heart sound, S2 normal heart sound and no murmurs GI normal to inspection, nondistended, normoactive bowel sounds, soft to palpation, non-tender and non-distended Extremity normal to inspection, full ROM and no clubbing, cyanosis or edema Skin no rashes or lesions noted Neuro oriented x3, CN's II-XII intact bilaterally and moves all extremities Sensorium / Orientation: awake and alert Psych affect normal Assessment & Plan Assessment/Plan (1) Septic shock: (2) Acute renal failure: QUALIFIERS: Acute renal failure type: unspecified Qualified Code(s): N17.9 - Acute kidney failure, unspecified PLAN: #Septic shock due to UTI * now off levophed. * On IV vancomycin as urine culture grew Enterococcus faecalis * Repeat blood cultures showed no growth after 48 hours.. * On IV ceftriaxone * on midodrine * #HELENA * Has a urine catheter in place. Creatinine is improving and is down to 3.72, from 5.3 yesterday. * Nephrology on board and thinks it is ATN * Has a dialysis catheter in place * * #Hyperkalemia: Resolved #A. fib: HR is 115 today. Will resume metoprolol today as BP has improved. #Acute metabolic encephalopathy: Resolved #Type 2 diabetes mellitus: Home oral meds on hold. On Lantus 30 units with breakfast. Insulin sliding scale. Checks AC at bedtime. #Hyperlipidemia: On statin DVT prophylaxis: Heparin Charges/Coding Visit Charges Inpatient E&M: 34800 Subs Hosp L2
--- NOTE | 2021-01-31 13:16 | PCM.PN.INT ---
Assessment & Plan Assessment/Plan (1) Sepsis secondary to UTI: (2) Hypoglycemia associated with type 2 diabetes mellitus: (3) Acute renal failure: QUALIFIERS: Acute renal failure type: unspecified Qualified Code(s): N17.9 - Acute kidney failure, unspecified PLAN: RECOMMENDATIONS: 1. Continue scheduled midodrine 3 times daily. 2. Continue antimicrobials. 3. Continue hemodialysis support per nephrology recommendations. 4. Encourage incentive spirometer use and mobilize patient as tolerated. 5. Continue appropriate DVT prophylaxis. 6. Continue to monitor in ICU setting, given tenuous hemodynamic status and likely need for dialysis tomorrow. IMPRESSIONS: 1. Septic shock secondary to Enterococcus UTI Slow clinical improvement noted. Although the patient was able to be weaned from vasopressor support this morning, the patient's hemodynamic status still remains tenuous. Plan to continue scheduled midodrine 3 times daily. The patient will remain on appropriate antimicrobials, dosed by pharmacy. 2. Acute kidney injury likely secondary to ischemic ATN in the setting #1 Nephrology is currently following to assist with hemodialysis needs. 3. Diabetes mellitus Continue basal and sliding scale insulin coverage. 4. Obesity/advanced age/poor primary follow-up Complicates care, management, recovery and prognosis. Continue supportive measures as noted above. This note was generated with SeeWhy dictation software. It may contain incorrect words, spelling, and punctuation that were not noted in checking the note before signing. Subjective Subjective The patient was seen and examined at the bedside this morning. Events from the last 24 hours have been reviewed. The patient is currently afebrile, hemodynamically stable and maintaining appropriate oxygen saturations on 2 L/min via nasal cannula. The patient is currently off of Levophed support. He tolerated dialysis yesterday without any significant fluid removal. The patient is currently documented to be overall net +7.7 L for the hospitalization. The patient remains on antimicrobials and scheduled midodrine 3 times daily. Objective Data Objective Data The patient's most recent lab work, culture data and imaging studies have all been personally reviewed. Surface echocardiogram dated January 27 demonstrated an ejection fraction of 55 to 60%. Urine culture dated January 27 was positive for pansensitive Enterococcus faecalis. Vital Signs: Vital Signs Temp Pulse Resp BP Pulse Ox 98.9 F 108 H 21 H 101/68 91 01/31/21 13:00 01/31/21 13:00 01/31/21 13:00 01/31/21 13:00 01/31/21 13:00 Oxygen Flow Rate (L/min) 2 Oxygen Delivery Method Nasal Cannula Weight: 105.2 kg Body Mass Index (BMI) 34.7 Intake & Output: Intake and Output for Last 24 Hours 01/29/21 01/30/21 01/31/21 23:59 23:59 23:59 Intake Total 1577.71 / 1581.51 933.66 / 943.06 756.34 / 756.34 Output Total 1375 / 1375 875 / 875 600 / 600 Balance 202.71 / 206.51 58.66 / 68.06 156.34 / 156.34 Medical Nutrition Assessment Dietitian: Malnutrition Criteria Met Start: 01/27/21 13:38 Freq: Status: Active Protocol: Document 01/28/21 16:32 RMA (Rec: 01/28/21 16:33 RMA [id number]) Nutrition Malnutrition Evidence of Malnutrition Exists Yes Malnutrition (severe): Acute Illness/Injury Evidenced By Suboptimal Energy Intake ( Severe),Weight Loss (Severe) Clinical Problem Acute Disease or Injury Related Malnutrition Etiology Severe protein-calorie malnutrition in the context of acute disease related to infection, poor appetite, inadequate oral intake Signs/Symptoms as evidenced by poor intake x 3-4 weeks, PO meeting less than 50% estimated nutrition needs and wt loss~10-11% x past month Status Active Problem Recommendation Dietitian Recommendations/Changes General Renal/Consistent Carbohydrate diet. Will continue 120ml Nepro supplement TID w/ meals and fortified pudding BID w/ lunch and dinner. Suggest [employer] evaluation for swallowing as needed. Lab / Micro Data Attestation: I reviewed the patient's lab results. Result Diagrams: 01/31/21 03:05 01/31/21 03:05 Labs: Laboratory Results - last 24 hr 01/28/21 04:19: Diff Path Review Reviewed 01/29/21 02:22: Diff Path Review Reviewed 01/30/21 03:35: Diff Path Review Reviewed 01/30/21 16:55: POC Glucose 141 H 01/30/21 21:03: POC Glucose 228 H 01/31/21 03:05: WBC 14.7 H, RBC 2.96 L, Hgb 8.2 L, Hct 25.5 L, MCV 86.1, MCH 27.7, MCHC 32.2, RDW Std Deviation 46.6 H, RDW Coeff of Flaco 14.7 H, Plt Count 314, MPV 9.0, Neut % (Auto) Not Reportable, Absolute Neuts (auto) 11.3 H, Absolute Lymphs (auto) 1.17, Total Counted 100, Neutrophils % (Manual) 69, Band Neutrophils % 8 H, Lymphocytes % (Manual) 8 L, Monocytes % (Manual) 8, Eosinophils % (Manual) 3, Metamyelocytes % 2 H, Myelocytes % 2 H, Diff Path Review June, Platelet Estimate ADEQUATE, RBC Morphology NORM C+C, Anisocytosis 1+ 01/31/21 03:05: Sodium 136, Potassium 4.1, Chloride 100, Carbon Dioxide 27.0, Anion Gap 9, BUN 47 H, Creatinine 3.72 H, Estim Creat Clear Calc 17.28, Est GFR (MDRD) Af Amer 21 L, Est GFR (MDRD) Non-Af 17 L, BUN/Creatinine Ratio 12.6, Glucose 186 H, Calcium 8.9 01/31/21 08:11: POC Glucose 157 H 01/31/21 11:32: POC Glucose 250 H Micro: Microbiology 01/26/21 22:45 Blood Culture (Wb) - Anticubital Left Blood Culture - Final Staphylococcus hominis hominis 01/27/21 04:15 Blood Culture (Wb) - Central Line Blood Culture - Preliminary No growth in 48 hours. 01/27/21 00:14 Urine, Clean Catch Urine Culture - Final Enterococcus faecalis 01/27/21 08:00 Stool Enteric Bacteriology - Final 01/27/21 08:00 Stool C. difficile DNA Amplification - Final 01/26/21 22:50 Nasal Secretion SARS-CoV-2 Antigen (Rapid) - Final Rhythm Strip Rhythm Strip: A-fib Rate: 110 Ectopy: PVC(s) Physical Exam Const alert and no apparent distress Nutritional Appearance: obese HEENT normocephalic, head/scalp atraumatic and moist oral mucous membranes Eyes PERRL and EOMs intact bilaterally Neck supple General: trachea midline and CVC in place Chest inspection of chest normal Resp normal respiratory effort Auscultation: Negative for rales, rhonchi or wheezes Cardio S1 normal heart sound and S2 normal heart sound Rate: tachycardic Rhythm: abnormal rhythm GI normal to inspection, nondistended, normoactive bowel sounds Extremity General Extremity: edema; Negative for clubbing Skin no rashes or lesions noted Neuro no focal motor deficits Psych cooperative Charges/Coding Visit Charges Inpatient E&M: 89696 [facility] Hosp L3
[2021-01-31 13:32] LABS: Pathologist Review Reviewed
[2021-01-31] MEDS: oxyCODONE 5 MG Tablet PO (13:55)
[2021-01-31 16:40] LABS: Bedside Glucose 327 mg/dL (70-110)
[2021-01-31] MEDS: Ondansetron 4 MG/2 ML Vial IV (17:22)
[2021-01-31 21:01] LABS: Bedside Glucose 223 mg/dL (70-110)
--- NOTE | 2021-01-31 22:14 | PCM.PN.REN ---
Subjective Subjective Following for HELENA. Pt denies CP, SOB or nausea. Objective Data Objective Data Vital Signs: Vital Signs Temp Pulse Resp BP Pulse Ox 99.5 F H 101 H 18 122/87 H 92 01/31/21 20:00 01/31/21 21:00 01/31/21 21:00 01/31/21 21:00 01/31/21 21:00 Oxygen Flow Rate (L/min) 3 Oxygen Delivery Method Nasal Cannula Weight: 105.2 kg Body Mass Index (BMI) 34.7 Intake & Output: Intake and Output for Last 24 Hours 01/29/21 01/30/21 01/31/21 23:59 23:59 23:59 Intake Total 1577.71 / 1581.51 933.66 / 943.06 756.34 / 756.34 Output Total 1375 / 1375 875 / 875 900 / 900 Balance 202.71 / 206.51 58.66 / 68.06 -143.66 / -143.66 Medical Nutrition Assessment Dietitian: Malnutrition Criteria Met Start: 01/27/21 13:38 Freq: Status: Active Protocol: Document 01/31/21 14:31 AG (Rec: 01/31/21 14:31 AG [id number]) Nutrition Malnutrition Evidence of Malnutrition Exists Yes Malnutrition (severe): Acute Illness/Injury Evidenced By Suboptimal Energy Intake ( Severe),Weight Loss (Severe) Clinical Problem Acute Disease or Injury Related Malnutrition Etiology Severe protein-calorie malnutrition in the context of acute disease related to infection, poor appetite, inadequate oral intake Signs/Symptoms as evidenced by poor intake x 3-4 weeks, PO meeting less than 50% estimated nutrition needs and wt loss~10-11% x past month Status Active Problem Recommendation Dietitian Recommendations/Changes Will liberalize diet to carbohydrate controlled, sodium restricted d/t poor PO intake and malnutrition. Will continue 120ml Nepro supplement TID w/ meals and fortified pudding BID w/ lunch and dinner. Lab / Micro Data Result Diagrams: 01/31/21 03:05 01/31/21 03:05 Labs: Laboratory Results - last 24 hr 01/28/21 04:19: Diff Path Review Reviewed 01/29/21 02:22: Diff Path Review Reviewed 01/30/21 03:35: Diff Path Review Reviewed 01/31/21 03:05: WBC 14.7 H, RBC 2.96 L, Hgb 8.2 L, Hct 25.5 L, MCV 86.1, MCH 27.7, MCHC 32.2, RDW Std Deviation 46.6 H, RDW Coeff of Flaco 14.7 H, Plt Count 314, MPV 9.0, Neut % (Auto) Not Reportable, Absolute Neuts (auto) 11.3 H, Absolute Lymphs (auto) 1.17, Total Counted 100, Neutrophils % (Manual) 69, Band Neutrophils % 8 H, Lymphocytes % (Manual) 8 L, Monocytes % (Manual) 8, Eosinophils % (Manual) 3, Metamyelocytes % 2 H, Myelocytes % 2 H, Diff Path Review Reviewed, Platelet Estimate ADEQUATE, RBC Morphology NORM C+C, Anisocytosis 1+ 01/31/21 03:05: Sodium 136, Potassium 4.1, Chloride 100, Carbon Dioxide 27.0, Anion Gap 9, BUN 47 H, Creatinine 3.72 H, Estim Creat Clear Calc 17.28, Est GFR (MDRD) Af Amer 21 L, Est GFR (MDRD) Non-Af 17 L, BUN/Creatinine Ratio 12.6, Glucose 186 H, Calcium 8.9 01/31/21 08:11: POC Glucose 157 H 01/31/21 11:32: POC Glucose 250 H 01/31/21 16:28: POC Glucose 327 H 01/31/21 20:46: POC Glucose 223 H Micro: Microbiology 01/26/21 22:45 Blood Culture (Wb) - Anticubital Left Blood Culture - Final Staphylococcus hominis hominis 01/27/21 04:15 Blood Culture (Wb) - Central Line Blood Culture - Preliminary No growth in 48 hours. 01/27/21 00:14 Urine, Clean Catch Urine Culture - Final Enterococcus faecalis 01/27/21 08:00 Stool Enteric Bacteriology - Final 01/27/21 08:00 Stool C. difficile DNA Amplification - Final 01/26/21 22:50 Nasal Secretion SARS-CoV-2 Antigen (Rapid) - Final Rhythm Strip Rhythm Strip: A-fib Rate: 110 Ectopy: PVC(s) Physical Exam Narrative General: NAD. HEENT: Normocephalic, atraumatic. Mucous membrane is moist. Heart: Irregularly irregular S1, S2. Lungs: Clear to auscultation anteriorly. Abdomen: Normal bowel sounds, soft, nontender no guarding or rebound. Extremity: Trace edema in the lower extremity. No clubbing or cyanosis. Assessment & Plan Assessment/Plan (1) HELENA (acute kidney injury): PLAN: HELENA is secondary to ischemic ATN related to septic shock. There is no prior history of chronic kidney disease. Creatinine was 0.8 mg/dL in February 2020. Dialysis was started on 01/27/2021. He was dialyzed again on 01/28/2021 and 01/30/2021. Hyperkalemia, acidosis and uremia has improved. Hold off on dialysis today. We will recheck renal function panel tomorrow to assess for any recovery of renal function. If there is no recovery of renal function, we will dialyze the patient again tomorrow. Continue to hold lisinopril and metformin. (2) Hyperkalemia, diminished renal excretion: PLAN: Resolved. Potassium level is within normal range after starting dialysis. Continue to hold VANE inhibitor until renal function has recovered. Recheck potassium level tomorrow. (3) Metabolic acidosis: PLAN: Resolved. Metabolic acidosis due to HELENA and poor perfusion related to sepsis. Serum bicarbonate level is back to normal range with dialysis. Continue to monitor serum bicarbonate level. (4) Hyponatremia: PLAN: Resolved. Hyponatremia is due to HELENA. Serum sodium level is normal with dialysis. Recheck serum sodium tomorrow. (5) Sepsis secondary to UTI: PLAN: Clinically improved. The patient is being treated with antimicrobial as directed by primary service.
[2021-02-01] VITALS (20 sets, daily range): BP systolic 102–144; BP diastolic 65–83; PULSE 92–120; RESP 16–24; TEMP 36.3–37.7; O2SAT 78–96
[2021-02-01] MEDS: Ondansetron 4 MG/2 ML Vial IV ×2 (01:25→20:35)
[2021-02-01] MEDS: Acetaminophen 325 MG Tablet 650 MG PO ×2 (04:58→20:35)
[2021-02-01] MEDS: Heparin Injection (Vial) 5,000 UNIT/ML VIAL 5000 UNIT SC ×2 (05:00→21:46)
[2021-02-01] MEDS: Insulin Lispro 100 UNIT/ML INSULN.PEN SC ×6 (08:26→21:48)
[2021-02-01 08:27] LABS: Hemoglobin 8.4 g/dL (13.0-16.5); Mean Corp Hgb Conc 32.3 g/dL (32-36); Mean Corpuscular Hgb 27.8 pg (27.0-32.0); Mean Corpuscular Volume 86.1 fL (80-94); Mean Platelet Vol. 9.1 fl (6.2-12.0); POSITIVE COUNT YES; POSITIVE MORPHOLOGY YES; Platelet Count 347 K/mm3 (150-450); RBC Distribution Width CV 14.6 % (11.6-14.6); RBC Distribution Width SD 46.1 fl (35.1-43.9); Red Blood Count 3.02 M/mm3 (4.6-6.2); White Blood Count 16.9 K/mm3 (4.4-11.0)
[2021-02-01 08:28] LABS: Differential Indicated MANUAL DIFF
[2021-02-01] MEDS: Midodrine HCl 5 MG Tablet 10 MG PO ×3 (08:29→17:57)
[2021-02-01] MEDS: Ferrous Sulfate 325 MG Tablet PO (08:30)
[2021-02-01] MEDS: Pravastatin 20 MG Tablet PO (08:30)
[2021-02-01] MEDS: Neomycin/Bacitracin/Polymyxin Opth. Ointment 1 APPLIC RIGHT EYE ×2 (08:30→21:46)
[2021-02-01] MEDS: Metoprolol Tartrate 25 MG Tablet 12.5 MG PO ×2 (08:31→21:45)
[2021-02-01] MEDS: oxyCODONE 5 MG Tablet PO ×2 (08:37→18:07)
[2021-02-01 08:51] LABS: Bedside Glucose 204 mg/dL (70-110)
[2021-02-01 08:58] LABS: Anion Gap 8 (5-15); BUN 58 mg/dL (7-18); BUN/Creat Ratio 12.5 RATIO (10-20); Calcium,Total 9.7 mg/dL (8.5-10.1); Chloride 100 mmol/L (98-107); Creatinine, Serum 4.64 mg/dL (0.70-1.30); EST Glomerular Filtration Rate 13 mL/min (>60); Est Glom Filt Rate - Afr Amer 16 mL/min (>60); Estimated Creatinine Clearance 13.85 ml/min; Glucose 224 mg/dL (74-106); Potassium 3.9 mmol/L (3.5-5.1); Sodium Level 135 mmol/L (136-145)
[2021-02-01 08:59] LABS: Vancomycin, Random Level 12.8 ug/mL (0.0-15.0)
[2021-02-01 09:15] LABS: Metamyelocyte 3 % (0-1); Neutrophil-Segmented 83 % (47-70); Total Cells Counted 100 (MANUAL DIFF)
[2021-02-01 09:16] LABS: Eosinophil 2 % (0-5); Lymphocyte 5 % (19-41); Monocyte 5 % (0-10); Myelocyte 1 % (0-0); Platelet Estimate ADEQUATE (ADEQ); Promyelocyte 1 % (0-0); Red Cell Morphology NORM C+C NORMAL (NORM C&C)
[2021-02-01 09:17] LABS: Absolute Lymphocyte Count 0.84 X10^3/uL (0.83-4.51); Lymphocyte # 0.84 X10^3/ul (0.83-4.51)
--- NOTE | 2021-02-01 10:52 | PCM.PN.HOSP ---
Subjective Subjective Patient seen and examined. He has no complaints this morning. Patient is still tachypneic and tachycardic. He had a low-grade fever early this morning at 99.9 Fahrenheit but this has improved. Review of systems otherwise negative. Objective Data Objective Data Vital Signs: Vital Signs Temp Pulse Resp BP Pulse Ox 98.1 F 109 H 24 H 110/71 95 02/01/21 06:40 02/01/21 08:31 02/01/21 06:40 02/01/21 08:31 02/01/21 06:40 Oxygen Flow Rate (L/min) 3 Oxygen Delivery Method Nasal Cannula Weight: 231 lb 14.821 oz Body Mass Index (BMI) 34.7 Intake & Output: Intake and Output for Last 24 Hours 01/30/21 01/31/21 02/01/21 23:59 23:59 23:59 Intake Total 933.66 / 943.06 756.34 / 756.34 Output Total 875 / 875 900 / 1250 600 / 600 Balance 58.66 / 68.06 -143.66 / -493.66 -600 / -600 Medical Nutrition Assessment Dietitian: Malnutrition Criteria Met Start: 01/27/21 13:38 Freq: Status: Active Protocol: Document 01/31/21 14:31 AG (Rec: 01/31/21 14:31 AG [id number]) Nutrition Malnutrition Evidence of Malnutrition Exists Yes Malnutrition (severe): Acute Illness/Injury Evidenced By Suboptimal Energy Intake ( Severe),Weight Loss (Severe) Clinical Problem Acute Disease or Injury Related Malnutrition Etiology Severe protein-calorie malnutrition in the context of acute disease related to infection, poor appetite, inadequate oral intake Signs/Symptoms as evidenced by poor intake x 3-4 weeks, PO meeting less than 50% estimated nutrition needs and wt loss~10-11% x past month Status Active Problem Recommendation Dietitian Recommendations/Changes Will liberalize diet to carbohydrate controlled, sodium restricted d/t poor PO intake and malnutrition. Will continue 120ml Nepro supplement TID w/ meals and fortified pudding BID w/ lunch and dinner. Lab / Micro Data Result Diagrams: 02/01/21 08:10 02/01/21 08:10 Labs: Laboratory Results - last 24 hr 01/31/21 03:05: Diff Path Review Reviewed 01/31/21 11:32: POC Glucose 250 H 01/31/21 16:28: POC Glucose 327 H 01/31/21 20:46: POC Glucose 223 H 02/01/21 08:10: WBC 16.9 H, RBC 3.02 L, Hgb 8.4 L, Hct 26.0 L, MCV 86.1, MCH 27.8, MCHC 32.3, RDW Std Deviation 46.1 H, RDW Coeff of Flaco 14.6, Plt Count 347, MPV 9.1, Neut % (Auto) Not Reportable, Absolute Neuts (auto) 14.0 H, Absolute Lymphs (auto) 0.84, Total Counted 100, Neutrophils % (Manual) 83 H, Lymphocytes % (Manual) 5 L, Monocytes % (Manual) 5, Eosinophils % (Manual) 2, Metamyelocytes % 3 H, Myelocytes % 1 H, Promyelocytes % 1 H, Diff Path Review June, Platelet Estimate ADEQUATE, RBC Morphology NORM C+C 02/01/21 08:10: Sodium 135 L, Potassium 3.9, Chloride 100, Carbon Dioxide 27.0, Anion Gap 8, BUN 58 H, Creatinine 4.64 H, Estim Creat Clear Calc 13.85, Est GFR (MDRD) Af Amer 16 L, Est GFR (MDRD) Non-Af 13 L, BUN/Creatinine Ratio 12.5, Glucose 224 H, Calcium 9.7 02/01/21 08:10: Random Vancomycin 12.8 02/01/21 08:26: POC Glucose 204 H Micro: Microbiology 01/26/21 22:45 Blood Culture (Wb) - Anticubital Left Blood Culture - Final Staphylococcus hominis hominis 01/27/21 04:15 Blood Culture (Wb) - Central Line Blood Culture - Final No growth in 5 days. 01/27/21 00:14 Urine, Clean Catch Urine Culture - Final Enterococcus faecalis 01/27/21 08:00 Stool Enteric Bacteriology - Final 01/27/21 08:00 Stool C. difficile DNA Amplification - Final 01/26/21 22:50 Nasal Secretion SARS-CoV-2 Antigen (Rapid) - Final Rhythm Strip Rhythm Strip: A-fib Rate: 110 Ectopy: PVC(s) Physical Exam Narrative Const alert, oriented x3 and no apparent distress Exam Limitations: no limitations HEENT head/scalp atraumatic, moist oral mucous membranes and oropharynx normal Head and Scalp: normocephalic Eyes PERRL, EOMs intact bilaterally and conjunctivae normal Neck no lymphadenopathy, supple and no JVD Resp normal respiratory effort, no retractions, no use of accessory muscles and clear to auscultation bilaterally Resp Narrative: tachypneic Cardio regular rhythm, S1 normal heart sound, S2 normal heart sound and no murmurs Cardio Narrative: tachycardic GI normal to inspection, nondistended, normoactive bowel sounds, soft to palpation, non-tender and non-distended Extremity normal to inspection, full ROM and no clubbing, cyanosis or edema Peripheral Pulses: Yes pulses 2+ throughout Skin no rashes or lesions noted Neuro oriented x3, CN's II-XII intact bilaterally and moves all extremities Sensorium / Orientation: awake and alert Psych affect normal Assessment & Plan Assessment/Plan (1) Septic shock: (2) Acute renal failure: QUALIFIERS: Acute renal failure type: unspecified Qualified Code(s): N17.9 - Acute kidney failure, unspecified PLAN: #Septic shock due to UTI now off levophed. On IV vancomycin as urine culture grew Enterococcus faecalis Repeat blood cultures showed no growth after 48 hours On IV ceftriaxone on midodrine #HELENA Has a urine catheter in place. Cr has trended upwards to 4.64 today. Nephrology on board and thinks it is ATN Has a dialysis catheter in place will likely need dialysis today #Hyperkalemia: Resolved #A. fib: he has remained tachyardic. metoprolol couldnt be resumed as BP was marginal. Will resume metoprolol today; dose reduced to 12.5mg bid #Acute metabolic encephalopathy: Resolved #Type 2 diabetes mellitus: Home oral meds on hold. On Lantus 30 units with breakfast. Insulin sliding scale. Checks AC at bedtime. #Hyperlipidemia: On statin DVT prophylaxis: Heparin Charges/Coding Visit Charges Inpatient E&M: 82863 [facility] [[email or web address]] Hosp L3
[2021-02-01 12:46] LABS: Bedside Glucose 206 mg/dL (70-110)
[2021-02-01 14:16] LABS: Pathologist Review Reviewed
--- NOTE | 2021-02-01 14:30 | PCM.RX.CS ---
Consult Pharmacy has been consulted to manage selected antiobiotic: Vancomycin Type of Consult: Follow-up Labs: Sodium 135 mmol/L (136-145) L 02/01/21 08:10 Potassium 3.9 mmol/L (3.5-5.1) 02/01/21 08:10 Chloride 100 mmol/L (98-107) 02/01/21 08:10 Carbon Dioxide 27.0 mmol/L (21.0-32.0) 02/01/21 08:10 Anion Gap 8 (5-15) 02/01/21 08:10 BUN 58 mg/dL (7-18) H 02/01/21 08:10 Creatinine 4.64 mg/dL (0.70-1.30) H 02/01/21 08:10 Est GFR (MDRD) Af Amer 16 mL/min (>60) L 02/01/21 08:10 Est GFR (MDRD) Non-Af 13 mL/min (>60) L 02/01/21 08:10 BUN/Creatinine Ratio 12.5 RATIO (10-20) 02/01/21 08:10 Glucose 224 mg/dL (74-106) H 02/01/21 08:10 Random Vancomycin 12.8 ug/mL (0.0-15.0) 02/01/21 08:10 Microbiology: Microbiology 01/26/21 22:45 Blood Culture (Wb) - Anticubital Left Blood Culture - Final Staphylococcus hominis hominis 01/27/21 04:15 Blood Culture (Wb) - Central Line Blood Culture - Final No growth in 5 days. 01/27/21 00:14 Urine, Clean Catch Urine Culture - Final Enterococcus faecalis 01/27/21 08:00 Stool Enteric Bacteriology - Final 01/27/21 08:00 Stool C. difficile DNA Amplification - Final 01/26/21 22:50 Nasal Secretion SARS-CoV-2 Antigen (Rapid) - Final Goal Trough: 15-20 mcg/mL - PLEASE CALL PCU TO FIND OUT HEMODYALISIS SCHEDULE FOR DOSING VANCOMYCIN AFTER HD Pharmacy Plan for Drug Dosing: Pharmacy Service will continue to monitor and adjust dosing as required.
--- NOTE | 2021-02-01 14:39 | PCM.PN.REN ---
Documented by User: IRENE Shukla 02/01/21 14:52 Subjective Subjective Resting in bed. Seen on HD. Tolerating treatment well. Denies any complaints except for feeling tired Objective Data Objective Data Vital Signs: Vital Signs Temp Pulse Resp BP Pulse Ox 98.2 F 103 H 18 131/83 H 94 02/01/21 12:05 02/01/21 12:05 02/01/21 12:05 02/01/21 12:05 02/01/21 12:05 Oxygen Flow Rate (L/min) 3 Oxygen Delivery Method Nasal Cannula Weight: 105.2 kg Body Mass Index (BMI) 34.7 Intake & Output: Intake and Output for Last 24 Hours 01/30/21 01/31/21 02/01/21 23:59 23:59 23:59 Intake Total 933.66 / 943.06 756.34 / 756.34 300 / 300 Output Total 875 / 875 900 / 1250 1100 / 1100 Balance 58.66 / 68.06 -143.66 / -493.66 -800 / -800 Medical Nutrition Assessment Dietitian: Malnutrition Criteria Met Start: 01/27/21 13:38 Freq: Status: Active Protocol: Document 01/31/21 14:31 AG (Rec: 01/31/21 14:31 AG [id number]) Nutrition Malnutrition Evidence of Malnutrition Exists Yes Malnutrition (severe): Acute Illness/Injury Evidenced By Suboptimal Energy Intake ( Severe),Weight Loss (Severe) Clinical Problem Acute Disease or Injury Related Malnutrition Etiology Severe protein-calorie malnutrition in the context of acute disease related to infection, poor appetite, inadequate oral intake Signs/Symptoms as evidenced by poor intake x 3-4 weeks, PO meeting less than 50% estimated nutrition needs and wt loss~10-11% x past month Status Active Problem Recommendation Dietitian Recommendations/Changes Will liberalize diet to carbohydrate controlled, sodium restricted d/t poor PO intake and malnutrition. Will continue 120ml Nepro supplement TID w/ meals and fortified pudding BID w/ lunch and dinner. Lab / Micro Data Result Diagrams: 02/05/21 06:07 02/05/21 06:07 Labs: Laboratory Results - last 24 hr 01/31/21 16:28: POC Glucose 327 H 01/31/21 20:46: POC Glucose 223 H 02/01/21 08:10: WBC 16.9 H, RBC 3.02 L, Hgb 8.4 L, Hct 26.0 L, MCV 86.1, MCH 27.8, MCHC 32.3, RDW Std Deviation 46.1 H, RDW Coeff of Flaco 14.6, Plt Count 347, MPV 9.1, Neut % (Auto) Not Reportable, Absolute Neuts (auto) 14.0 H, Absolute Lymphs (auto) 0.84, Total Counted 100, Neutrophils % (Manual) 83 H, Lymphocytes % (Manual) 5 L, Monocytes % (Manual) 5, Eosinophils % (Manual) 2, Metamyelocytes % 3 H, Myelocytes % 1 H, Promyelocytes % 1 H, Diff Path Review Reviewed, Platelet Estimate ADEQUATE, RBC Morphology NORM C+C 02/01/21 08:10: Sodium 135 L, Potassium 3.9, Chloride 100, Carbon Dioxide 27.0, Anion Gap 8, BUN 58 H, Creatinine 4.64 H, Estim Creat Clear Calc 13.85, Est GFR (MDRD) Af Amer 16 L, Est GFR (MDRD) Non-Af 13 L, BUN/Creatinine Ratio 12.5, Glucose 224 H, Calcium 9.7 02/01/21 08:10: Random Vancomycin 12.8 02/01/21 08:26: POC Glucose 204 H 02/01/21 12:00: POC Glucose 206 H Micro: Microbiology 01/26/21 22:45 Blood Culture (Wb) - Anticubital Left Blood Culture - Final Staphylococcus hominis hominis 01/27/21 04:15 Blood Culture (Wb) - Central Line Blood Culture - Final No growth in 5 days. 01/27/21 00:14 Urine, Clean Catch Urine Culture - Final Enterococcus faecalis 01/27/21 08:00 Stool Enteric Bacteriology - Final 01/27/21 08:00 Stool C. difficile DNA Amplification - Final 01/26/21 22:50 Nasal Secretion SARS-CoV-2 Antigen (Rapid) - Final Rhythm Strip Rhythm Strip: A-fib Rate: 110 Ectopy: PVC(s) Physical Exam Narrative General: NAD. HEENT: Normocephalic, atraumatic. Mucous membrane is moist. Heart: Irregularly irregular S1, S2. Lungs: Clear to auscultation anteriorly. Abdomen: Normal bowel sounds, soft, nontender no guarding or rebound. Extremity: No edema in the lower extremities. non-tunneled HD catheter left neck dressing C/D/I Assessment & Plan Assessment/Plan (1) HELENA (acute kidney injury): PLAN: HELENA is secondary to ischemic ATN related to septic shock. Nonoliguric. There is no prior history of chronic kidney disease. Creatinine was 0.88 mg/dL in February 2020. Dialysis was started on 01/27/2021, Creatinine 7.25mg/dL. He was dialyzed again on 01/28/2021 and 01/30/2021. Hyperkalemia, acidosis and uremia has improved. Today Creatinine up to 4.64mg/dL, therefore will plan for HD over 3 hours with 2- 2.5 L UF. We will continue to monitor renal function and assess for any recovery of renal function. If no noted recovery, patient will need tunneled HD catheter placed and outpatient dialysis arrangements. Continue to hold lisinopril and metformin. Blood pressures acceptable. Patient is on both metoprolol and midodrine. Heart rates ranging 100 to 120 (2) Hyperkalemia, diminished renal excretion: PLAN: Resolved. Potassium level is within normal range after starting dialysis. Continue to hold VANE inhibitor until renal function has recovered. (3) Metabolic acidosis: PLAN: Resolved. Metabolic acidosis due to HELENA and poor perfusion related to sepsis. Serum bicarbonate level is back to normal range with dialysis. Continue to monitor serum bicarbonate level. (4) Hyponatremia: PLAN: Resolved. Hyponatremia is due to HELENA. Serum sodium level is normal with dialysis. Recheck serum sodium tomorrow. (5) Sepsis secondary to UTI: PLAN: Clinically improved. The patient is being treated with antimicrobial as directed by primary service. Blood cultures no growth. Last random Vanco level 12.8 on 02/01/2021 Documented by User: Dr. Jaime Reyes MD 02/05/21 09:22 Objective Data Lab / Micro Data Result Diagrams: 02/05/21 06:07 02/05/21 06:07
--- NOTE | 2021-02-01 17:21 | DIALYSIS ---
HD today as ordered. 3hr uf -3000ml tolerated well post bp 114/78 profile B on crit line.
[2021-02-01 17:31] LABS: Bedside Glucose 123 mg/dL (70-110)
[2021-02-01 22:06] LABS: Bedside Glucose 184 mg/dL (70-110)
[2021-02-02] VITALS (12 sets, daily range): BP systolic 112–143; BP diastolic 69–99; PULSE 68–108; RESP 18–20; TEMP 36.4–37; O2SAT 89–95
[2021-02-02] MEDS: Heparin Injection (Vial) 5,000 UNIT/ML VIAL 5000 UNIT SC ×3 (05:58→20:14)
[2021-02-02] MEDS: Ondansetron 4 MG/2 ML Vial IV ×3 (06:01→23:53)
[2021-02-02 06:57] LABS: Hematocrit 26.3 % (40-54); Hemoglobin 8.3 g/dL (13.0-16.5); Mean Corp Hgb Conc 31.6 g/dL (32-36); Mean Corpuscular Hgb 27.4 pg (27.0-32.0); Mean Corpuscular Volume 86.8 fL (80-94); Mean Platelet Vol. 9.3 fl (6.2-12.0); POSITIVE COUNT YES; POSITIVE MORPHOLOGY YES; Platelet Count 334 K/mm3 (150-450); RBC Distribution Width CV 14.3 % (11.6-14.6); RBC Distribution Width SD 45.5 fl (35.1-43.9); Red Blood Count 3.03 M/mm3 (4.6-6.2); White Blood Count 17.5 K/mm3 (4.4-11.0)
[2021-02-02 06:58] LABS: Differential Indicated MANUAL DIFF
[2021-02-02 07:12] LABS: Anion Gap 9 (5-15); BUN 38 mg/dL (7-18); BUN/Creat Ratio 11.3 RATIO (10-20); Calcium,Total 9.3 mg/dL (8.5-10.1); Chloride 101 mmol/L (98-107); Creatinine, Serum 3.35 mg/dL (0.70-1.30); EST Glomerular Filtration Rate 20 mL/min (>60); Est Glom Filt Rate - Afr Amer 24 mL/min (>60); Estimated Creatinine Clearance 19.18 ml/min; Glucose 134 mg/dL (74-106); Potassium 3.8 mmol/L (3.5-5.1); Sodium Level 137 mmol/L (136-145)
[2021-02-02 07:18] LABS: Absolute Lymphocyte Count 0.87 X10^3/uL (0.83-4.51); Eosinophil 1 % (0-5); Lymphocyte 5 % (19-41); Monocyte 6 % (0-10); Myelocyte 2 % (0-0); Neutrophil-Segmented 86 % (47-70); Platelet Estimate ADEQUATE (ADEQ); Red Cell Morphology NORM C+C NORMAL (NORM C&C); Total Cells Counted 100 (MANUAL DIFF)
[2021-02-02] MEDS: Insulin Lispro 100 UNIT/ML INSULN.PEN SC ×7 (08:10→20:15)
[2021-02-02] MEDS: Ferrous Sulfate 325 MG Tablet PO (08:12)
[2021-02-02] MEDS: Pravastatin 20 MG Tablet PO (08:12)
[2021-02-02] MEDS: Midodrine HCl 5 MG Tablet 10 MG PO ×3 (08:12→17:25)
[2021-02-02] MEDS: Metoprolol Tartrate 25 MG Tablet 12.5 MG PO (08:13)
[2021-02-02] MEDS: Neomycin/Bacitracin/Polymyxin Opth. Ointment 1 APPLIC RIGHT EYE ×2 (08:13→20:15)
[2021-02-02 08:25] LABS: Bedside Glucose 193 mg/dL (70-110)
--- NOTE | 2021-02-02 11:11 | PCM.PN.REN ---
Documented by User: IRENE Shukla 02/02/21 11:17 Subjective Subjective Sitting in chair air, denies any complaints. More alert and awake this morning. Objective Data Objective Data Vital Signs: Vital Signs Temp Pulse Resp BP Pulse Ox 97.5 F L 100 20 H 112/69 89 02/02/21 04:00 02/02/21 08:13 02/02/21 04:00 02/02/21 04:00 02/02/21 09:43 Oxygen Flow Rate (L/min) 2 Oxygen Delivery Method Nasal Cannula Weight: 103.1 kg Body Mass Index (BMI) 34.7 Intake & Output: Intake and Output for Last 24 Hours 01/31/21 02/01/21 02/02/21 23:59 23:59 23:59 Intake Total 756.34 / 756.34 700 / 900 865 / 865 Output Total 900 / 1250 1550 / 1550 200 / 200 Balance -143.66 / -493.66 -850 / -650 665 / 665 Medical Nutrition Assessment Dietitian: Malnutrition Criteria Met Start: 01/27/21 13:38 Freq: Status: Active Protocol: Document 01/31/21 14:31 AG (Rec: 01/31/21 14:31 [id number]) Nutrition Malnutrition Evidence of Malnutrition Exists Yes Malnutrition (severe): Acute Illness/Injury Evidenced By Suboptimal Energy Intake ( Severe),Weight Loss (Severe) Clinical Problem Acute Disease or Injury Related Malnutrition Etiology Severe protein-calorie malnutrition in the context of acute disease related to infection, poor appetite, inadequate oral intake Signs/Symptoms as evidenced by poor intake x 3-4 weeks, PO meeting less than 50% estimated nutrition needs and wt loss~10-11% x past month Status Active Problem Recommendation Dietitian Recommendations/Changes Will liberalize diet to carbohydrate controlled, sodium restricted d/t poor PO intake and malnutrition. Will continue 120ml Nepro supplement TID w/ meals and fortified pudding BID w/ lunch and dinner. Lab / Micro Data Result Diagrams: 02/05/21 06:07 02/05/21 06:07 Labs: Laboratory Results - last 24 hr 02/01/21 08:10: Diff Path Review Reviewed 02/01/21 12:00: POC Glucose 206 H 02/01/21 17:24: POC Glucose 123 H 02/01/21 21:34: POC Glucose 184 H 02/02/21 06:15: WBC 17.5 H, RBC 3.03 L, Hgb 8.3 L, Hct 26.3 L, MCV 86.8, MCH 27.4, MCHC 31.6 L, RDW Std Deviation 45.5 H, RDW Coeff of Flaco 14.3, Plt Count 334, MPV 9.3, Neut % (Auto) Not Reportable, Absolute Neuts (auto) 15.0 H, Absolute Lymphs (auto) 0.87, Total Counted 100, Neutrophils % (Manual) 86 H, Lymphocytes % (Manual) 5 L, Monocytes % (Manual) 6, Eosinophils % (Manual) 1, Myelocytes % 2 H, Diff Path Review June, Platelet Estimate ADEQUATE, RBC Morphology NORM C+C 02/02/21 06:15: Sodium 137, Potassium 3.8, Chloride 101, Carbon Dioxide 27.0, Anion Gap 9, BUN 38 H, Creatinine 3.35 H, Estim Creat Clear Calc 19.18, Est GFR (MDRD) Af Amer 24 L, Est GFR (MDRD) Non-Af 20 L, BUN/Creatinine Ratio 11.3, Glucose 134 H, Calcium 9.3 02/02/21 08:09: POC Glucose 193 H Micro: Microbiology 01/26/21 22:45 Blood Culture (Wb) - Anticubital Left Blood Culture - Final Staphylococcus hominis hominis 01/27/21 04:15 Blood Culture (Wb) - Central Line Blood Culture - Final No growth in 5 days. 01/27/21 00:14 Urine, Clean Catch Urine Culture - Final Enterococcus faecalis 01/27/21 08:00 Stool Enteric Bacteriology - Final 01/27/21 08:00 Stool C. difficile DNA Amplification - Final 01/26/21 22:50 Nasal Secretion SARS-CoV-2 Antigen (Rapid) - Final Rhythm Strip Rhythm Strip: A-fib Rate: 110 Ectopy: PVC(s) Physical Exam Narrative General: NAD. HEENT: Normocephalic, atraumatic. Mucous membrane is moist. Heart: Irregularly irregular S1, S2. Lungs: Clear to auscultation anteriorly. Abdomen: Normal bowel sounds, soft, nontender no guarding or rebound. Extremity: No edema in the lower extremities. non-tunneled HD catheter left neck dressing C/D/I Assessment & Plan Assessment/Plan (1) HELENA (acute kidney injury): PLAN: HELENA is secondary to ischemic ATN related to septic shock. Nonoliguric. There is no prior history of chronic kidney disease. Creatinine was 0.88 mg/dL in February 2020. Dialysis was started on 01/27/2021, Creatinine 7.25mg/dL. He was dialyzed again on 01/28/2021, 01/30/2021 and 02/01/2021 (pre-HD Cr 4.64mg/dL). No acute indication for [employer]OVER[employer] SPECIALIST today. We will continue to monitor renal function and assess for any recovery of renal function. If no noted recovery, patient will need tunneled HD catheter placed and outpatient dialysis arrangements. We will have a better idea if patient will need TDC and outpatient HD arranged based on tomorrow's labs, UOP, etc. Continue to hold lisinopril and metformin. Blood pressures acceptable. Patient is on both metoprolol and midodrine. Heart rates improving, had been ranging 100 to 120 patient has poor oral intake, encouraged him to try and increase intake. (2) Hyperkalemia, diminished renal excretion: PLAN: Resolved. Potassium level is within normal range after starting dialysis. Continue to hold VANE inhibitor until renal function has recovered. (3) Metabolic acidosis: PLAN: Resolved. Metabolic acidosis due to HELENA and poor perfusion related to sepsis. Serum bicarbonate level is back to normal range with dialysis. Continue to monitor serum bicarbonate level. (4) Hyponatremia: PLAN: Resolved. Hyponatremia is due to HELENA. Serum sodium level is normal with dialysis. Recheck serum sodium tomorrow. (5) Sepsis secondary to UTI: PLAN: Clinically improved. The patient is being treated with antimicrobial as directed by primary service. Blood cultures no growth. Last random Vanco level 12.8 on 02/01/2021 Documented by User: Dr. Jaime Reyes MD 02/05/21 09:21 Objective Data Lab / Micro Data Result Diagrams: 02/05/21 06:07 02/05/21 06:07
[2021-02-02 11:55] LABS: Bedside Glucose 266 mg/dL (70-110)
--- NOTE | 2021-02-02 12:42 | CASEMGMT ---
Social Work SW met with pt to discuss discharge plans. SW spoke with pt regarding functionality with physical therapy as pt was Min Ax2 for transfers and for ambulation of 3 feet. At this time pt is agreeable to short term SNF placement prior to returning home. SW reviewed list of SNFs that had previously been provided to pt and preferred provided is [facility]. Phone call to Adry at [facility] and they do have beds available. Referral faxed, SW will await determination of acceptance. JOHN Menard
--- NOTE | 2021-02-02 14:42 | PN.HOSP_ITS ---
Subjective Subjective Patient seen and examined. He complained of feeling weak and tired today. She has no other complaints and review of systems is otherwise negative. He has remained hemodynamically stable. Objective Data Objective Data Vital Signs: Vital Signs Temp Pulse Resp BP Pulse Ox 98.4 F 102 H 18 143/99 H 93 02/02/21 09:45 02/02/21 11:30 02/02/21 09:45 02/02/21 09:45 02/02/21 09:45 Oxygen Flow Rate (L/min) 2 Oxygen Delivery Method Nasal Cannula Weight: 227 lb 4.745 oz Body Mass Index (BMI) 34.7 Intake & Output: Intake and Output for Last 24 Hours 01/31/21 02/01/21 02/02/21 23:59 23:59 23:59 Intake Total 756.34 / 756.34 700 / 900 865 / 865 Output Total 900 / 1250 1550 / 1550 200 / 200 Balance -143.66 / -493.66 -850 / -650 665 / 665 Medical Nutrition Assessment Dietitian: Malnutrition Criteria Met Start: 01/27/21 13:38 Freq: Status: Active Protocol: Document 01/31/21 14:31 AG (Rec: 01/31/21 14:31 [id number]) Nutrition Malnutrition Evidence of Malnutrition Exists Yes Malnutrition (severe): Acute Illness/Injury Evidenced By Suboptimal Energy Intake ( Severe),Weight Loss (Severe) Clinical Problem Acute Disease or Injury Related Malnutrition Etiology Severe protein-calorie malnutrition in the context of acute disease related to infection, poor appetite, inadequate oral intake Signs/Symptoms as evidenced by poor intake x 3-4 weeks, PO meeting less than 50% estimated nutrition needs and wt loss~10-11% x past month Status Active Problem Recommendation Dietitian Recommendations/Changes Will liberalize diet to carbohydrate controlled, sodium restricted d/t poor PO intake and malnutrition. Will continue 120ml Nepro supplement TID w/ meals and fortified pudding BID w/ lunch and dinner. Lab / Micro Data Result Diagrams: 02/02/21 06:15 02/02/21 06:15 Labs: Laboratory Results - last 24 hr 02/01/21 17:24: POC Glucose 123 H 02/01/21 21:34: POC Glucose 184 H 02/02/21 06:15: WBC 17.5 H, RBC 3.03 L, Hgb 8.3 L, Hct 26.3 L, MCV 86.8, MCH 27.4, MCHC 31.6 L, RDW Std Deviation 45.5 H, RDW Coeff of Flaco 14.3, Plt Count 334, MPV 9.3, Neut % (Auto) Not Reportable, Absolute Neuts (auto) 15.0 H, Absolute Lymphs (auto) 0.87, Total Counted 100, Neutrophils % (Manual) 86 H, Lymphocytes % (Manual) 5 L, Monocytes % (Manual) 6, Eosinophils % (Manual) 1, Myelocytes % 2 H, Diff Path Review June, Platelet Estimate ADEQUATE, RBC Morphology NORM C+C 02/02/21 06:15: Sodium 137, Potassium 3.8, Chloride 101, Carbon Dioxide 27.0, Anion Gap 9, BUN 38 H, Creatinine 3.35 H, Estim Creat Clear Calc 19.18, Est GFR (MDRD) Af Amer 24 L, Est GFR (MDRD) Non-Af 20 L, BUN/Creatinine Ratio 11.3, Glucose 134 H, Calcium 9.3 02/02/21 08:09: POC Glucose 193 H 02/02/21 11:45: POC Glucose 266 H Micro: Microbiology 01/26/21 22:45 Blood Culture (Wb) - Anticubital Left Blood Culture - Final Staphylococcus hominis hominis 01/27/21 04:15 Blood Culture (Wb) - Central Line Blood Culture - Final No growth in 5 days. 01/27/21 00:14 Urine, Clean Catch Urine Culture - Final Enterococcus faecalis 01/27/21 08:00 Stool Enteric Bacteriology - Final 01/27/21 08:00 Stool C. difficile DNA Amplification - Final 01/26/21 22:50 Nasal Secretion SARS-CoV-2 Antigen (Rapid) - Final Rhythm Strip Rhythm Strip: A-fib Rate: 110 Ectopy: PVC(s) Physical Exam Narrative Const alert, oriented x3 and no apparent distress Exam Limitations: no limitations HEENT head/scalp atraumatic, moist oral mucous membranes and oropharynx normal Head and Scalp: normocephalic Eyes PERRL, EOMs intact bilaterally and conjunctivae normal Neck no lymphadenopathy, supple and no JVD Resp normal respiratory effort, no retractions, no use of accessory muscles and clear to auscultation bilaterally Cardio regular rhythm, S1 normal heart sound, S2 normal heart sound and no murmurs Cardio Narrative: tachycardic GI normal to inspection, nondistended, normoactive bowel sounds, soft to palpation, non-tender and non-distended Extremity normal to inspection, full ROM and no clubbing, cyanosis or edema Peripheral Pulses: Yes pulses 2+ throughout Skin no rashes or lesions noted Neuro oriented x3, CN's II-XII intact bilaterally and moves all extremities Sensorium / Orientation: awake and alert Psych affect normal Assessment & Plan Assessment/Plan (1) Septic shock: (2) Acute renal failure: QUALIFIERS: Acute renal failure type: unspecified Qualified Code(s): N17.9 - Acute kidney failure, unspecified PLAN: #Septic shock due to UTI * now off levophed. * On IV vancomycin as urine culture grew Enterococcus faecalis * Repeat blood cultures showed no growth after 48 hours * On IV ceftriaxone * on midodrine * #HELENA * Has a urine catheter in place. Cr has trended downwards to 3.35. * Nephrology on board and thinks it is ATN * Has a dialysis catheter in place * discussed with nephrology; per nephrology, may need insertion of tunneled dialysis catheter as he may need outpatient dialysis. * #Hyperkalemia: Resolved #A. fib: * he has remained tachyardic. * on metoprolol 12.5mg bid. will increase to 25mg bid. #Acute metabolic encephalopathy: Resolved #Type 2 diabetes mellitus: * Home oral meds on hold. * On Lantus 30 units with breakfast. Insulin sliding scale. Checks AC at bedtime. #Hyperlipidemia: On statin DVT prophylaxis: Heparin Charges/Coding Visit Charges Inpatient E&M: 73320 Subs Hosp L2
[2021-02-02] MEDS: 0.9% Saline Lock 10 ML Syringe IV (15:15)
[2021-02-02] MEDS: oxyCODONE 5 MG Tablet PO ×2 (15:15→23:53)
[2021-02-02 17:31] LABS: Bedside Glucose 183 mg/dL (70-110)
[2021-02-02] MEDS: Metoprolol Tartrate 25 MG Tablet PO (20:14)
[2021-02-02 22:26] LABS: Bedside Glucose 174 mg/dL (70-110)
[2021-02-03] VITALS (11 sets, daily range): BP systolic 119–128; BP diastolic 58–83; PULSE 80–107; RESP 18–20; TEMP 36.4–37.1; O2SAT 94–97
[2021-02-03] MEDS: Heparin Injection (Vial) 5,000 UNIT/ML VIAL 5000 UNIT SC ×3 (05:09→21:53)
[2021-02-03] MEDS: oxyCODONE 5 MG Tablet PO (06:25)
[2021-02-03] MEDS: Ondansetron 4 MG/2 ML Vial IV (06:29)
[2021-02-03] MEDS: 0.9% Saline Lock 10 ML Syringe IV (06:29)
[2021-02-03 06:56] LABS: Absolute Lymphocyte Count 1.19 X10^3/uL (0.83-4.51); Basophil# 0.05 X10^3/uL; Basophil% 0.3 % (0-1); Eosinophil# 0.33 X10^3/uL; Eosinophils% 1.9 % (0-5); Hematocrit 26.4 % (40-54); Hemoglobin 8.4 g/dL (13.0-16.5); Lymphocyte # 1.19 X10^3/ul (0.83-4.51); Lymphocyte % 6.9 % (19-41); Mean Corp Hgb Conc 31.8 g/dL (32-36); Mean Corpuscular Hgb 27.5 pg (27.0-32.0); Mean Corpuscular Volume 86.3 fL (80-94); Monocyte% 5.8 % (0-10); NRBC Flagged by Analyzer 0 % (0-5); Neutrophil # 13.99 X10^3/uL (2.7-7.7); Neutrophil % 81.3 % (47-70); Platelet Count 350 K/mm3 (150-450); RBC Distribution Width CV 14.4 % (11.6-14.6); RBC Distribution Width SD 45.1 fl (35.1-43.9); Red Blood Count 3.06 M/mm3 (4.6-6.2); White Blood Count 17.2 K/mm3 (4.4-11.0)
[2021-02-03 07:19] LABS: Anion Gap 6 (5-15); BUN 45 mg/dL (7-18); Calcium,Total 9.8 mg/dL (8.5-10.1); Chloride 101 mmol/L (98-107); Creatinine, Serum 3.74 mg/dL (0.70-1.30); EST Glomerular Filtration Rate 17 mL/min (>60); Est Glom Filt Rate - Afr Amer 21 mL/min (>60); Estimated Creatinine Clearance 17.18 ml/min; Glucose 184 mg/dL (74-106); Potassium 3.9 mmol/L (3.5-5.1); Sodium Level 135 mmol/L (136-145)
[2021-02-03] MEDS: Insulin Lispro 100 UNIT/ML INSULN.PEN SC ×7 (08:53→21:54)
[2021-02-03] MEDS: Midodrine HCl 5 MG Tablet 10 MG PO ×3 (08:53→17:07)
[2021-02-03] MEDS: Metoprolol Tartrate 25 MG Tablet PO ×2 (08:54→22:09)
[2021-02-03] MEDS: Ferrous Sulfate 325 MG Tablet PO (08:54)
[2021-02-03] MEDS: Pravastatin 20 MG Tablet PO (08:54)
[2021-02-03] MEDS: Neomycin/Bacitracin/Polymyxin Opth. Ointment 1 APPLIC RIGHT EYE ×2 (08:54→21:55)
[2021-02-03 09:06] LABS: Bedside Glucose 255 mg/dL (70-110)
[2021-02-03 09:50] LABS: Pathologist Review Reviewed
[2021-02-03 11:36] LABS: Bedside Glucose 241 mg/dL (70-110)
--- NOTE | 2021-02-03 11:53 | PN.HOSP_ITS ---
Subjective Subjective Patient seen and examined. He complains of feeling weak and tired. Review systems otherwise negative. Creatinine is 3.74 today and potassium was 3.9. Objective Data Objective Data Vital Signs: Vital Signs Temp Pulse Resp BP Pulse Ox 98.2 F 94 20 H 119/58 L 96 02/03/21 11:42 02/03/21 11:42 02/03/21 11:42 02/03/21 11:42 02/03/21 11:42 Oxygen Flow Rate (L/min) 2 Oxygen Delivery Method Nasal Cannula Weight: 219 lb 12.814 oz Body Mass Index (BMI) 34.7 Intake & Output: Intake and Output for Last 24 Hours 02/01/21 02/02/21 02/03/21 23:59 23:59 23:59 Intake Total 700 / 900 1385 / 1385 600 / 600 Output Total 1550 / 1550 1950 / 1950 1150 / 1150 Balance -850 / -650 -565 / -565 -550 / -550 Medical Nutrition Assessment Dietitian: Malnutrition Criteria Met Start: 01/27/21 13:38 Freq: Status: Active Protocol: Document 01/31/21 14:31 AG (Rec: 01/31/21 14:31 AG [id number]) Nutrition Malnutrition Evidence of Malnutrition Exists Yes Malnutrition (severe): Acute Illness/Injury Evidenced By Suboptimal Energy Intake ( Severe),Weight Loss (Severe) Clinical Problem Acute Disease or Injury Related Malnutrition Etiology Severe protein-calorie malnutrition in the context of acute disease related to infection, poor appetite, inadequate oral intake Signs/Symptoms as evidenced by poor intake x 3-4 weeks, PO meeting less than 50% estimated nutrition needs and wt loss~10-11% x past month Status Active Problem Recommendation Dietitian Recommendations/Changes Will liberalize diet to carbohydrate controlled, sodium restricted d/t poor PO intake and malnutrition. Will continue 120ml Nepro supplement TID w/ meals and fortified pudding BID w/ lunch and dinner. Lab / Micro Data Result Diagrams: 02/03/21 06:20 02/03/21 06:20 Labs: Laboratory Results - last 24 hr 02/02/21 06:15: Diff Path Review Reviewed 02/02/21 11:45: POC Glucose 266 H 02/02/21 17:25: POC Glucose 183 H 02/02/21 20:14: POC Glucose 174 H 02/03/21 06:20: WBC 17.2 H, RBC 3.06 L, Hgb 8.4 L, Hct 26.4 L, MCV 86.3, MCH 27.5, MCHC 31.8 L, RDW Std Deviation 45.1 H, RDW Coeff of Flaco 14.4, Plt Count 350, MPV 9.0, Immature Gran % (Auto) 3.800 H, Neut % (Auto) 81.3 H, Lymph % (Auto) 6.9 L, [place] % (Auto) 5.8, Eos % (Auto) 1.9, Baso % (Auto) 0.3, Absolute Neuts (auto) 14.0 H, Absolute Lymphs (auto) 1.19, Nucleated RBC % 0 02/03/21 06:20: Sodium 135 L, Potassium 3.9, Chloride 101, Carbon Dioxide 28.0, Anion Gap 6, BUN 45 H, Creatinine 3.74 H, Estim Creat Clear Calc 17.18, Est GFR (MDRD) Af Amer 21 L, Est GFR (MDRD) Non-Af 17 L, BUN/Creatinine Ratio 12.0, Glucose 184 H, Calcium 9.8 02/03/21 08:51: POC Glucose 255 H 02/03/21 11:23: POC Glucose 241 H Micro: Microbiology 01/26/21 22:45 Blood Culture (Wb) - Anticubital Left Blood Culture - Final Staphylococcus hominis hominis 01/27/21 04:15 Blood Culture (Wb) - Central Line Blood Culture - Final No growth in 5 days. 01/27/21 00:14 Urine, Clean Catch Urine Culture - Final Enterococcus faecalis 01/27/21 08:00 Stool Enteric Bacteriology - Final 01/27/21 08:00 Stool C. difficile DNA Amplification - Final 01/26/21 22:50 Nasal Secretion SARS-CoV-2 Antigen (Rapid) - Final Rhythm Strip Rhythm Strip: A-fib Rate: 110 Ectopy: PVC(s) Physical Exam Narrative Const alert, oriented x3 and no apparent distress Exam Limitations: no limitations HEENT head/scalp atraumatic, moist oral mucous membranes and oropharynx normal Head and Scalp: normocephalic Eyes PERRL, EOMs intact bilaterally and conjunctivae normal Neck no lymphadenopathy, supple and no JVD Resp normal respiratory effort, no retractions, no use of accessory muscles and clear to auscultation bilaterally Cardio regular rate, regular rhythm, S1 normal heart sound, S2 normal heart sound and no murmurs GI normal to inspection, nondistended, normoactive bowel sounds, soft to palpation, non-tender and non-distended Extremity normal to inspection, full ROM and no clubbing, cyanosis or edema Peripheral Pulses: Yes pulses 2+ throughout Skin no rashes or lesions noted Neuro oriented x3, CN's II-XII intact bilaterally and moves all extremities Sensorium / Orientation: awake and alert Psych affect normal Assessment & Plan Assessment/Plan (1) Septic shock: (2) Acute renal failure: QUALIFIERS: Acute renal failure type: unspecified Qualified Code(s): N17.9 - Acute kidney failure, unspecified PLAN: #Septic shock due to UTI * resolved. Off levophed. * On IV vancomycin as urine culture grew Enterococcus faecalis * Repeat blood cultures are negative. * On IV ceftriaxone and vancomycin. Will dc IV antibiotics since he has received them for one week now. * on midodrine * #HELENA * Has a urine catheter in place. CR today is 3.74. * Nephrology on board and thinks it is ATN * Has a dialysis catheter in place * Will likely need outpatient dialysis as well and will need tunnel dialysis ca theter inserted. Will await nephrology recommendation. * #Hyperkalemia: Resolved #A. fib: * on metoprolol 25mg bid. * on metoprolol 12.5mg bid. will increase to 25mg bid. #Acute metabolic encephalopathy: Resolved #Type 2 diabetes mellitus: * Home oral meds on hold. * On Lantus 30 units with breakfast. Insulin sliding scale. Checks AC at bedtime. #Hyperlipidemia: On statin DVT prophylaxis: Heparin Disposition: will need placement Charges/Coding Visit Charges Inpatient E&M: 51361 Subs Hosp L2
--- NOTE | 2021-02-03 15:51 | CASEMGMT ---
STARR spoke with Adry at [facility] and they can take patient. They do need to know the dialysis schedule to make sure they can transport. Outpatient Dialysis is not set up yet. Jocy SEAY
[2021-02-03 16:55] LABS: Bedside Glucose 213 mg/dL (70-110)
[2021-02-03] MEDS: Acetaminophen 325 MG Tablet 650 MG PO (17:07)
--- NOTE | 2021-02-03 18:06 | PN.RENAL_ITS ---
Subjective Subjective Following for HELENA. The patient complains of occasional nausea but no vomiting. He denies chest pain or shortness of breath. Objective Data Objective Data Vital Signs: Vital Signs Temp Pulse Resp BP Pulse Ox 98.8 F 86 20 H 127/80 H 94 02/03/21 17:09 02/03/21 17:09 02/03/21 17:09 02/03/21 17:09 02/03/21 17:09 Oxygen Flow Rate (L/min) 2 Oxygen Delivery Method Nasal Cannula Weight: 99.7 kg Body Mass Index (BMI) 34.7 Intake & Output: Intake and Output for Last 24 Hours 02/01/21 02/02/21 02/03/21 23:59 23:59 23:59 Intake Total 700 / 900 1385 / 1385 1080 / 1080 Output Total 1550 / 1550 1950 / 1950 1900 / 1900 Balance -850 / -650 -565 / -565 -820 / -820 Medical Nutrition Assessment Dietitian: Malnutrition Criteria Met Start: 01/27/21 13:38 Freq: Status: Active Protocol: Document 01/31/21 14:31 AG (Rec: 01/31/21 14:31 [id number]) Nutrition Malnutrition Evidence of Malnutrition Exists Yes Malnutrition (severe): Acute Illness/Injury Evidenced By Suboptimal Energy Intake ( Severe),Weight Loss (Severe) Clinical Problem Acute Disease or Injury Related Malnutrition Etiology Severe protein-calorie malnutrition in the context of acute disease related to infection, poor appetite, inadequate oral intake Signs/Symptoms as evidenced by poor intake x 3-4 weeks, PO meeting less than 50% estimated nutrition needs and wt loss~10-11% x past month Status Active Problem Recommendation Dietitian Recommendations/Changes Will liberalize diet to carbohydrate controlled, sodium restricted d/t poor PO intake and malnutrition. Will continue 120ml Nepro supplement TID w/ meals and fortified pudding BID w/ lunch and dinner. Lab / Micro Data Result Diagrams: 02/03/21 06:20 02/03/21 06:20 Labs: Laboratory Results - last 24 hr 02/02/21 06:15: Diff Path Review Reviewed 02/02/21 20:14: POC Glucose 174 H 02/03/21 06:20: WBC 17.2 H, RBC 3.06 L, Hgb 8.4 L, Hct 26.4 L, MCV 86.3, MCH 27.5, MCHC 31.8 L, RDW Std Deviation 45.1 H, RDW Coeff of Flaco 14.4, Plt Count 350, MPV 9.0, Immature Gran % (Auto) 3.800 H, Neut % (Auto) 81.3 H, Lymph % (Auto) 6.9 L, [place] % (Auto) 5.8, Eos % (Auto) 1.9, Baso % (Auto) 0.3, Absolute Neuts (auto) 14.0 H, Absolute Lymphs (auto) 1.19, Nucleated RBC % 0 02/03/21 06:20: Sodium 135 L, Potassium 3.9, Chloride 101, Carbon Dioxide 28.0, Anion Gap 6, BUN 45 H, Creatinine 3.74 H, Estim Creat Clear Calc 17.18, Est GFR (MDRD) Af Amer 21 L, Est GFR (MDRD) Non-Af 17 L, BUN/Creatinine Ratio 12.0, Glucose 184 H, Calcium 9.8 02/03/21 08:51: POC Glucose 255 H 02/03/21 11:23: POC Glucose 241 H 02/03/21 16:43: POC Glucose 213 H Micro: Microbiology 01/26/21 22:45 Blood Culture (Wb) - Anticubital Left Blood Culture - Final Staphylococcus hominis hominis 01/27/21 04:15 Blood Culture (Wb) - Central Line Blood Culture - Final No growth in 5 days. 01/27/21 00:14 Urine, Clean Catch Urine Culture - Final Enterococcus faecalis 01/27/21 08:00 Stool Enteric Bacteriology - Final 01/27/21 08:00 Stool C. difficile DNA Amplification - Final 01/26/21 22:50 Nasal Secretion SARS-CoV-2 Antigen (Rapid) - Final Rhythm Strip Rhythm Strip: A-fib Rate: 110 Ectopy: PVC(s) Physical Exam Narrative General: NAD. HEENT: Normocephalic, atraumatic. Mucous membrane is moist. Heart: Irregularly irregular S1, S2. Lungs: Clear to auscultation anteriorly. Abdomen: Normal bowel sounds, soft, nontender no guarding or rebound. Extremity: No edema in the lower extremities. non-tunneled HD catheter left neck dressing C/D/I Assessment & Plan Assessment/Plan (1) HELENA (acute kidney injury): PLAN: HELENA is secondary to ischemic ATN related to septic shock. Nonoliguric. There is no prior history of chronic kidney disease. Creatinine was 0.88 mg/dL in February 2020. Dialysis was started on 01/27/2021, Creatinine 7.25mg/dL. He was dialyzed again on 01/28/2021, 01/30/2021 and 02/01/2021 (pre-HD Cr 4.64mg/dL). The patient is nonoliguric. Although there is a small elevation of serum creatinine (3.50 to 3.74), there is no acute indication for [employer] today. We will continue to monitor renal function and assess for any recovery of renal function. If no noted recovery, patient will need tunneled HD catheter placed and outpatient dialysis arrangements. We will have a better idea if patient will need TDC and outpatient HD arranged based on tomorrow's labs, UOP, etc. Continue to hold lisinopril and metformin. Recheck renal function tomorrow. (2) Hyperkalemia, diminished renal excretion: PLAN: Resolved. Potassium level is within normal range after starting dialysis. Continue to hold VANE inhibitor until renal function has recovered. (3) Metabolic acidosis: PLAN: Resolved. Metabolic acidosis due to HELENA and poor perfusion related to sepsis. Serum bicarbonate level is back to normal range with dialysis. Continue to monitor serum bicarbonate level. (4) Hyponatremia: PLAN: Serum sodium is mildly decreased at 135 mmol/L. Hyponatremia is due to HELENA. Recheck serum sodium tomorrow. (5) Sepsis secondary to UTI: PLAN: Clinically improved. The patient is being treated with antimicrobial as directed by primary service.
[2021-02-03 23:26] LABS: Bedside Glucose 251 mg/dL (70-110)
[2021-02-04] VITALS (13 sets, daily range): BP systolic 110–129; BP diastolic 69–84; PULSE 73–96; RESP 16–20; TEMP 2.8–37; O2SAT 93–97
[2021-02-04] MEDS: Acetaminophen 325 MG Tablet 650 MG PO ×3 (02:20→17:11)
[2021-02-04] MEDS: oxyCODONE 5 MG Tablet PO ×2 (02:20→14:08)
[2021-02-04 06:48] LABS: Absolute Lymphocyte Count 1.21 X10^3/uL (0.83-4.51); Absolute Neutrophil Count 12.5 X10^3/uL (2.0-7.7); Basophil# 0.05 X10^3/uL; Basophil% 0.3 % (0-1); Eosinophil# 0.28 X10^3/uL; Eosinophils% 1.8 % (0-5); Hematocrit 25.8 % (40-54); Hemoglobin 8.3 g/dL (13.0-16.5); Lymphocyte # 1.21 X10^3/ul (0.83-4.51); Mean Corp Hgb Conc 32.2 g/dL (32-36); Mean Corpuscular Hgb 27.6 pg (27.0-32.0); Mean Corpuscular Volume 85.7 fL (80-94); Mean Platelet Vol. 8.9 fl (6.2-12.0); Monocyte# 0.87 X10^3/uL; Monocyte% 5.7 % (0-10); NRBC Flagged by Analyzer 0 % (0-5); Neutrophil # 12.45 X10^3/uL (2.7-7.7); Neutrophil % 82.2 % (47-70); Platelet Count 365 K/mm3 (150-450); RBC Distribution Width CV 14.2 % (11.6-14.6); RBC Distribution Width SD 44.4 fl (35.1-43.9); Red Blood Count 3.01 M/mm3 (4.6-6.2); White Blood Count 15.2 K/mm3 (4.4-11.0)
[2021-02-04 07:19] LABS: Anion Gap 9 (5-15); BUN 47 mg/dL (7-18); BUN/Creat Ratio 13.1 RATIO (10-20); Calcium,Total 9.8 mg/dL (8.5-10.1); Chloride 99 mmol/L (98-107); EST Glomerular Filtration Rate 18 mL/min (>60); Est Glom Filt Rate - Afr Amer 22 mL/min (>60); Estimated Creatinine Clearance 17.85 ml/min; Glucose 184 mg/dL (74-106); Potassium 3.8 mmol/L (3.5-5.1); Sodium Level 136 mmol/L (136-145)
[2021-02-04] MEDS: Insulin Lispro 100 UNIT/ML INSULN.PEN SC ×7 (07:28→21:17)
[2021-02-04 07:36] LABS: Bedside Glucose 169 mg/dL (70-110)
--- NOTE | 2021-02-04 07:51 | DIALYSIS ---
No dialysis planned for today per Dr. Reyes
[2021-02-04] MEDS: Neomycin/Bacitracin/Polymyxin Opth. Ointment 1 APPLIC RIGHT EYE ×2 (08:27→21:18)
[2021-02-04] MEDS: Midodrine HCl 5 MG Tablet 10 MG PO ×3 (08:27→16:18)
[2021-02-04] MEDS: Ferrous Sulfate 325 MG Tablet PO (08:27)
[2021-02-04] MEDS: Pravastatin 20 MG Tablet PO (08:27)
[2021-02-04] MEDS: Heparin Injection (Vial) 5,000 UNIT/ML VIAL 5000 UNIT SC ×2 (08:27→21:16)
[2021-02-04] MEDS: Metoprolol Tartrate 25 MG Tablet PO ×2 (08:27→21:20)
[2021-02-04 12:00] LABS: Bedside Glucose 215 mg/dL (70-110)
[2021-02-04 12:02] LABS: Magnesium 1.5 mg/dL (1.6-2.6)
--- NOTE | 2021-02-04 12:13 | PN.HOSP_ITS ---
Subjective Subjective Patient seen and examined. HE complains of feeling tired. He has no other complaints. He was noted having several PVCs. His magnesium is 1.5. Objective Data Objective Data Vital Signs: Vital Signs Temp Pulse Resp BP Pulse Ox 98.4 F 90 20 H 110/71 94 02/04/21 08:17 02/04/21 08:27 02/04/21 08:17 02/04/21 08:27 02/04/21 08:17 Oxygen Flow Rate (L/min) 3 Oxygen Delivery Method Nasal Cannula Weight: 220 lb 10.923 oz Body Mass Index (BMI) 34.7 Intake & Output: Intake and Output for Last 24 Hours 02/02/21 02/03/21 02/04/21 23:59 23:59 23:59 Intake Total 1385 / 1385 1080 / 1080 Output Total 1950 / 1950 1900 / 1900 1225 / 1225 Balance -565 / -565 -820 / -820 -1225 / -1225 Medical Nutrition Assessment Dietitian: Malnutrition Criteria Met Start: 01/27/21 13:38 Freq: Status: Active Protocol: Document 01/31/21 14:31 AG (Rec: 01/31/21 14:31 AG [id number]) Nutrition Malnutrition Evidence of Malnutrition Exists Yes Malnutrition (severe): Acute Illness/Injury Evidenced By Suboptimal Energy Intake ( Severe),Weight Loss (Severe) Clinical Problem Acute Disease or Injury Related Malnutrition Etiology Severe protein-calorie malnutrition in the context of acute disease related to infection, poor appetite, inadequate oral intake Signs/Symptoms as evidenced by poor intake x 3-4 weeks, PO meeting less than 50% estimated nutrition needs and wt loss~10-11% x past month Status Active Problem Recommendation Dietitian Recommendations/Changes Will liberalize diet to carbohydrate controlled, sodium restricted d/t poor PO intake and malnutrition. Will continue 120ml Nepro supplement TID w/ meals and fortified pudding BID w/ lunch and dinner. Lab / Micro Data Result Diagrams: 02/04/21 06:30 02/04/21 06:30 Labs: Laboratory Results - last 24 hr 02/03/21 16:43: POC Glucose 213 H 02/03/21 21:50: POC Glucose 251 H 02/04/21 06:30: WBC 15.2 H, RBC 3.01 L, Hgb 8.3 L, Hct 25.8 L, MCV 85.7, MCH 27.6, MCHC 32.2, RDW Std Deviation 44.4 H, RDW Coeff of Flaco 14.2, Plt Count 365, MPV 8.9, Immature Gran % (Auto) 2.000 H, Neut % (Auto) 82.2 H, Lymph % (Auto) 8.0 L, [place] % (Auto) 5.7, Eos % (Auto) 1.8, Baso % (Auto) 0.3, Absolute Neuts (auto) 12.5 H, Absolute Lymphs (auto) 1.21, Nucleated RBC % 0 02/04/21 06:30: Sodium 136, Potassium 3.8, Chloride 99, Carbon Dioxide 28.0, Anion Gap 9, BUN 47 H, Creatinine 3.60 H, Estim Creat Clear Calc 17.85, Est GFR (MDRD) Af Amer 22 L, Est GFR (MDRD) Non-Af 18 L, BUN/Creatinine Ratio 13.1, Glucose 184 H, Calcium 9.8 02/04/21 07:27: POC Glucose 169 H 02/04/21 11:34: Magnesium 1.5 L 02/04/21 11:49: POC Glucose 215 H Micro: Microbiology 01/26/21 22:45 Blood Culture (Wb) - Anticubital Left Blood Culture - Final Staphylococcus hominis hominis 01/27/21 04:15 Blood Culture (Wb) - Central Line Blood Culture - Final No growth in 5 days. 01/27/21 00:14 Urine, Clean Catch Urine Culture - Final Enterococcus faecalis 01/27/21 08:00 Stool Enteric Bacteriology - Final 01/27/21 08:00 Stool C. difficile DNA Amplification - Final 01/26/21 22:50 Nasal Secretion SARS-CoV-2 Antigen (Rapid) - Final Rhythm Strip Rhythm Strip: A-fib Rate: 110 Ectopy: PVC(s) Physical Exam Narrative Const alert, oriented x3 and no apparent distress Orientation / Consciousness: lethargic Exam Limitations: no limitations HEENT head/scalp atraumatic, moist oral mucous membranes and oropharynx normal Head and Scalp: normocephalic Eyes PERRL, EOMs intact bilaterally and conjunctivae normal Neck no lymphadenopathy, supple and no JVD Resp normal respiratory effort, no retractions, no use of accessory muscles and clear to auscultation bilaterally Resp Narrative: tachypneic Cardio regular rate, regular rhythm, S1 normal heart sound, S2 normal heart sound and no murmurs GI normal to inspection, nondistended, normoactive bowel sounds, soft to palpation, non-tender and non-distended Extremity normal to inspection, full ROM and no clubbing, cyanosis or edema Peripheral Pulses: Yes pulses 2+ throughout Skin no rashes or lesions noted Neuro oriented x3, CN's II-XII intact bilaterally and moves all extremities Sensorium / Orientation: awake and alert Psych affect normal Assessment & Plan Assessment/Plan (1) Septic shock: (2) Acute renal failure: QUALIFIERS: Acute renal failure type: unspecified Qualified Code(s): N17.9 - Acute kidney failure, unspecified PLAN: #Septic shock due to UTI * resolved. Off levophed. * On IV vancomycin as urine culture grew Enterococcus faecalis * Repeat blood cultures are negative. * antibiotics dc'd. * on midodrine * #HELENA * Has a urine catheter in place. CR today is 3.60 * Nephrology on board and thinks it is ATN * Has a dialysis catheter in place * Will likely need outpatient dialysis as well and will need tunnel dialysis catheter inserted. * #Hyperkalemia: Resolved #A. fib: * on metoprolol 25mg bid. #Acute metabolic encephalopathy: Resolved #Type 2 diabetes mellitus: * Home oral meds on hold. * On Lantus 30 units with breakfast. Insulin sliding scale. Checks AC at bedtime. #Hyperlipidemia: On statin DVT prophylaxis: Heparin Disposition: will need placement Charges/Coding Visit Charges Inpatient E&M: 00655 Subs Hosp L2
[2021-02-04] MEDS: Magnesium Sulfate 4gm/100mL 4 GM/100 ML IV.SOLN. IV (14:06)
[2021-02-04 17:00] LABS: Bedside Glucose 241 mg/dL (70-110)
--- NOTE | 2021-02-04 20:42 | DIALYSIS ---
Addendum entered by Zhane Alves 02/04/21 20:47: dressing changed per staff and charge nurses' request, dressing slightly soiled and peeling off Original Note: left neck temporary dialysis catheter dressing changed, last changed 01/30/21, site benign, dressing previously reinforced, dressing and tape removed, site cleansed, new dressing applied
[2021-02-04] MEDS: 0.9% Saline Lock 10 ML Syringe IV (21:15)
[2021-02-05] VITALS (12 sets, daily range): BP systolic 105–113; BP diastolic 61–90; PULSE 65–88; RESP 16–18; TEMP 36.3–36.9; O2SAT 93–98
[2021-02-05] MEDS: Acetaminophen 325 MG Tablet 650 MG PO ×3 (03:32→18:38)
[2021-02-05] MEDS: 0.9% Saline Lock 10 ML Syringe IV ×2 (03:48→22:01)
[2021-02-05 05:41] LABS: Bedside Glucose 203 mg/dL (70-110)
[2021-02-05 05:41] LABS: Bedside Glucose 199 mg/dL (70-110)
[2021-02-05 06:49] LABS: Absolute Lymphocyte Count 1.13 X10^3/uL (0.83-4.51); Absolute Neutrophil Count 13.4 X10^3/uL (2.0-7.7); Basophil# 0.05 X10^3/uL; Basophil% 0.3 % (0-1); Eosinophil# 0.27 X10^3/uL; Eosinophils% 1.7 % (0-5); Hematocrit 26.7 % (40-54); Hemoglobin 8.5 g/dL (13.0-16.5); Lymphocyte # 1.13 X10^3/ul (0.83-4.51); Lymphocyte % 7.2 % (19-41); Mean Corp Hgb Conc 31.8 g/dL (32-36); Mean Corpuscular Hgb 27.2 pg (27.0-32.0); Mean Corpuscular Volume 85.3 fL (80-94); Mean Platelet Vol. 9.2 fl (6.2-12.0); Monocyte# 0.75 X10^3/uL; Monocyte% 4.8 % (0-10); NRBC Flagged by Analyzer 0 % (0-5); Neutrophil # 13.35 X10^3/uL (2.7-7.7); Neutrophil % 84.9 % (47-70); Platelet Count 409 K/mm3 (150-450); RBC Distribution Width CV 14.2 % (11.6-14.6); RBC Distribution Width SD 43.9 fl (35.1-43.9); Red Blood Count 3.13 M/mm3 (4.6-6.2); White Blood Count 15.7 K/mm3 (4.4-11.0)
[2021-02-05 07:32] LABS: Anion Gap 10 (5-15); BUN 46 mg/dL (7-18); BUN/Creat Ratio 14.8 RATIO (10-20); Calcium,Total 9.9 mg/dL (8.5-10.1); Chloride 98 mmol/L (98-107); EST Glomerular Filtration Rate 21 mL/min (>60); Est Glom Filt Rate - Afr Amer 26 mL/min (>60); Estimated Creatinine Clearance 20.73 ml/min; Glucose 249 mg/dL (74-106); Potassium 3.9 mmol/L (3.5-5.1); Sodium Level 136 mmol/L (136-145)
[2021-02-05] MEDS: Insulin Lispro 100 UNIT/ML INSULN.PEN SC ×7 (07:49→21:52)
[2021-02-05 07:50] LABS: Magnesium 2.2 mg/dL (1.6-2.6)
[2021-02-05] MEDS: Midodrine HCl 5 MG Tablet 10 MG PO ×3 (07:51→16:45)
[2021-02-05 08:01] LABS: Bedside Glucose 275 mg/dL (70-110)
--- NOTE | 2021-02-05 09:04 | PCM.PN.REN ---
Subjective Subjective Following for HELENA. There is no chest pain, shortness of breath at rest or nausea. Appetite is reasonable. Objective Data Objective Data Vital Signs: Vital Signs Temp Pulse Resp BP Pulse Ox 97.9 F 86 16 111/61 98 02/05/21 07:52 02/05/21 07:52 02/05/21 07:52 02/05/21 07:52 02/05/21 07:52 Oxygen Flow Rate (L/min) 3 Oxygen Delivery Method Nasal Cannula Weight: 99.6 kg Body Mass Index (BMI) 34.7 Intake & Output: Intake and Output for Last 24 Hours 02/03/21 02/04/21 02/05/21 23:59 23:59 23:59 Intake Total 1080 / 1080 1180 / 1400 460 / 460 Output Total 1900 / 1900 2625 / 3725 2049 / 2049 Balance -820 / -820 -1445 / -2325 -1590 / -1590 Medical Nutrition Assessment Dietitian: Malnutrition Criteria Met Start: 01/27/21 13:38 Freq: Status: Active Protocol: Document 01/31/21 14:31 AG (Rec: 01/31/21 14:31 [id number]) Nutrition Malnutrition Evidence of Malnutrition Exists Yes Malnutrition (severe): Acute Illness/Injury Evidenced By Suboptimal Energy Intake ( Severe),Weight Loss (Severe) Clinical Problem Acute Disease or Injury Related Malnutrition Etiology Severe protein-calorie malnutrition in the context of acute disease related to infection, poor appetite, inadequate oral intake Signs/Symptoms as evidenced by poor intake x 3-4 weeks, PO meeting less than 50% estimated nutrition needs and wt loss~10-11% x past month Status Active Problem Recommendation Dietitian Recommendations/Changes Will liberalize diet to carbohydrate controlled, sodium restricted d/t poor PO intake and malnutrition. Will continue 120ml Nepro supplement TID w/ meals and fortified pudding BID w/ lunch and dinner. Lab / Micro Data Result Diagrams: 02/05/21 06:07 02/05/21 06:07 Labs: Laboratory Results - last 24 hr 02/04/21 11:34: Magnesium 1.5 L 02/04/21 11:49: POC Glucose 215 H 02/04/21 16:55: POC Glucose 241 H 02/04/21 21:14: POC Glucose 203 H 02/05/21 03:30: POC Glucose 199 H 02/05/21 06:07: WBC 15.7 H, RBC 3.13 L, Hgb 8.5 L, Hct 26.7 L, MCV 85.3, MCH 27.2, MCHC 31.8 L, RDW Std Deviation 43.9, RDW Coeff of Flaco 14.2, Plt Count 409, MPV 9.2, Immature Gran % (Auto) 1.100 H, Neut % (Auto) 84.9 H, Lymph % (Auto) 7.2 L, [place] % (Auto) 4.8, Eos % (Auto) 1.7, Baso % (Auto) 0.3, Absolute Neuts (auto) 13.4 H, Absolute Lymphs (auto) 1.13, Nucleated RBC % 0 02/05/21 06:07: Sodium 136, Potassium 3.9, Chloride 98, Carbon Dioxide 28.0, Anion Gap 10, BUN 46 H, Creatinine 3.10 H, Estim Creat Clear Calc 20.73, Est GFR (MDRD) Af Amer 26 L, Est GFR (MDRD) Non-Af 21 L, BUN/Creatinine Ratio 14.8, Glucose 249 H, Calcium 9.9 02/05/21 06:07: Magnesium 2.2 02/05/21 07:46: POC Glucose 275 H Micro: Microbiology 01/26/21 22:45 Blood Culture (Wb) - Anticubital Left Blood Culture - Final Staphylococcus hominis hominis 01/27/21 04:15 Blood Culture (Wb) - Central Line Blood Culture - Final No growth in 5 days. 01/27/21 00:14 Urine, Clean Catch Urine Culture - Final Enterococcus faecalis 01/27/21 08:00 Stool Enteric Bacteriology - Final 01/27/21 08:00 Stool C. difficile DNA Amplification - Final 01/26/21 22:50 Nasal Secretion SARS-CoV-2 Antigen (Rapid) - Final Rhythm Strip Rhythm Strip: A-fib Rate: 110 Ectopy: PVC(s) Physical Exam Narrative General: NAD. HEENT: Normocephalic, atraumatic. Mucous membrane is moist. Heart: Irregularly irregular S1, S2. Lungs: Clear to auscultation anteriorly. Abdomen: Normal bowel sounds, soft, nontender no guarding or rebound. Extremity: No edema in the lower extremities. non-tunneled HD catheter left neck dressing C/D/I Assessment & Plan Assessment/Plan (1) HELENA (acute kidney injury): PLAN: HELENA is secondary to ischemic ATN related to septic shock. Nonoliguric. There is no prior history of chronic kidney disease. Creatinine was 0.88 mg/dL in February 2020. Dialysis was started on 01/27/2021, Creatinine 7.25mg/dL. He was dialyzed again on 01/28/2021, 01/30/2021 and 02/01/2021 (pre-HD Cr 4.64mg/dL). The patient is nonoliguric. Serum creatinine has been trending down slowly in the last 48 hours. Serum creatinine was 3.74 mg/dL on 02/03/2021. Serum creatinine is 3.10 mg/dL today. Therefore, there is no acute indication for dialysis today. We will continue to monitor renal function. If there is further improvement in renal function in the next 24 hours, we will pull temporary dialysis catheter tomorrow. Continue to hold lisinopril and metformin. Recheck renal function tomorrow. (2) Hyperkalemia, diminished renal excretion: PLAN: Resolved. Potassium level is within normal range after starting dialysis. Continue to hold VANE inhibitor until renal function has recovered. (3) Metabolic acidosis: PLAN: Resolved. Metabolic acidosis due to HELENA and poor perfusion related to sepsis. Serum bicarbonate level is back to normal range with dialysis. Continue to monitor serum bicarbonate level. (4) Hyponatremia: PLAN: Resolved. Hyponatremia was due to HELENA. Recheck serum sodium tomorrow. (5) Sepsis secondary to UTI: PLAN: Clinically improved. The patient is being treated with antimicrobial as directed by primary service.
[2021-02-05] MEDS: Neomycin/Bacitracin/Polymyxin Opth. Ointment 1 APPLIC RIGHT EYE ×2 (09:27→22:00)
[2021-02-05] MEDS: Metoprolol Tartrate 25 MG Tablet PO (09:28)
[2021-02-05] MEDS: Heparin Injection (Vial) 5,000 UNIT/ML VIAL 5000 UNIT SC ×2 (09:28→21:48)
[2021-02-05] MEDS: Pravastatin 20 MG Tablet PO (09:28)
[2021-02-05] MEDS: Ferrous Sulfate 325 MG Tablet PO (09:28)
--- NOTE | 2021-02-05 10:02 | PN.HOSP_ITS ---
Subjective Subjective Patient seen and examined. He has no active complaints today. Review of systems otherwise negative. Creatinine is down to 3.10 today. Objective Data Objective Data Vital Signs: Vital Signs Temp Pulse Resp BP Pulse Ox 97.9 F 80 16 111/71 96 02/05/21 09:24 02/05/21 09:28 02/05/21 09:24 02/05/21 09:28 02/05/21 09:24 Oxygen Flow Rate (L/min) 3 Oxygen Delivery Method Nasal Cannula Weight: 219 lb 9.286 oz Body Mass Index (BMI) 34.7 Intake & Output: Intake and Output for Last 24 Hours 02/03/21 02/04/21 02/05/21 23:59 23:59 23:59 Intake Total 1080 / 1080 1180 / 1400 460 / 460 Output Total 1900 / 1900 2625 / 3725 2049 / 2049 Balance -820 / -820 -1445 / -2325 -1590 / -1590 Medical Nutrition Assessment Dietitian: Malnutrition Criteria Met Start: 01/27/21 13:38 Freq: Status: Active Protocol: Document 01/31/21 14:31 AG (Rec: 01/31/21 14:31 [id number]) Nutrition Malnutrition Evidence of Malnutrition Exists Yes Malnutrition (severe): Acute Illness/Injury Evidenced By Suboptimal Energy Intake ( Severe),Weight Loss (Severe) Clinical Problem Acute Disease or Injury Related Malnutrition Etiology Severe protein-calorie malnutrition in the context of acute disease related to infection, poor appetite, inadequate oral intake Signs/Symptoms as evidenced by poor intake x 3-4 weeks, PO meeting less than 50% estimated nutrition needs and wt loss~10-11% x past month Status Active Problem Recommendation Dietitian Recommendations/Changes Will liberalize diet to carbohydrate controlled, sodium restricted d/t poor PO intake and malnutrition. Will continue 120ml Nepro supplement TID w/ meals and fortified pudding BID w/ lunch and dinner. Lab / Micro Data Result Diagrams: 02/05/21 06:07 02/05/21 06:07 Labs: Laboratory Results - last 24 hr 02/04/21 11:34: Magnesium 1.5 L 02/04/21 11:49: POC Glucose 215 H 02/04/21 16:55: POC Glucose 241 H 02/04/21 21:14: POC Glucose 203 H 02/05/21 03:30: POC Glucose 199 H 02/05/21 06:07: WBC 15.7 H, RBC 3.13 L, Hgb 8.5 L, Hct 26.7 L, MCV 85.3, MCH 27 .2, MCHC 31.8 L, RDW Std Deviation 43.9, RDW Coeff of Flaco 14.2, Plt Count 409, MPV 9.2, Immature Gran % (Auto) 1.100 H, Neut % (Auto) 84.9 H, Lymph % (Auto) 7.2 L, [place] % (Auto) 4.8, Eos % (Auto) 1.7, Baso % (Auto) 0.3, Absolute Neuts (auto) 13.4 H, Absolute Lymphs (auto) 1.13, Nucleated RBC % 0 02/05/21 06:07: Sodium 136, Potassium 3.9, Chloride 98, Carbon Dioxide 28.0, Anion Gap 10, BUN 46 H, Creatinine 3.10 H, Estim Creat Clear Calc 20.73, Est GFR (MDRD) Af Amer 26 L, Est GFR (MDRD) Non-Af 21 L, BUN/Creatinine Ratio 14.8, Glucose 249 H, Calcium 9.9 02/05/21 06:07: Magnesium 2.2 02/05/21 07:46: POC Glucose 275 H Micro: Microbiology 01/26/21 22:45 Blood Culture (Wb) - Anticubital Left Blood Culture - Final Staphylococcus hominis hominis 01/27/21 04:15 Blood Culture (Wb) - Central Line Blood Culture - Final No growth in 5 days. 01/27/21 00:14 Urine, Clean Catch Urine Culture - Final Enterococcus faecalis 01/27/21 08:00 Stool Enteric Bacteriology - Final 01/27/21 08:00 Stool C. difficile DNA Amplification - Final 01/26/21 22:50 Nasal Secretion SARS-CoV-2 Antigen (Rapid) - Final Rhythm Strip Rhythm Strip: A-fib Rate: 110 Ectopy: PVC(s) Physical Exam Narrative Const alert, oriented x3 and no apparent distress Exam Limitations: no limitations HEENT head/scalp atraumatic, moist oral mucous membranes and oropharynx normal Head and Scalp: normocephalic Eyes PERRL, EOMs intact bilaterally and conjunctivae normal Neck no lymphadenopathy, supple and no JVD Resp normal respiratory effort, no retractions, no use of accessory muscles and clear to auscultation bilaterally Cardio regular rate, regular rhythm, S1 normal heart sound, S2 normal heart sound and no murmurs Cardio Narrative: tachycardic GI normal to inspection, nondistended, normoactive bowel sounds, soft to palpation, non-tender and non-distended Extremity normal to inspection, full ROM and no clubbing, cyanosis or edema Peripheral Pulses: Yes pulses 2+ throughout Skin no rashes or lesions noted Skin Narrative: has dialysis catheter in left side of neck Neuro oriented x3, CN's II-XII intact bilaterally and moves all extremities Sensorium / Orientation: awake and alert Psych affect normal Assessment & Plan Assessment/Plan (1) Septic shock: (2) Acute renal failure: QUALIFIERS: Acute renal failure type: unspecified Qualified Code(s): N17.9 - Acute kidney failure, unspecified PLAN: #Septic shock due to UTI * resolved. * On IV vancomycin as urine culture grew Enterococcus faecalis * Repeat blood cultures are negative. * antibiotics dc'd. * on midodrine * #HELENA * Has a urine catheter in place. CR today is 3.1 * Nephrology on board and thinks it is ATN * Has a dialysis catheter in place * has had dialysis during this admission. Per nephro, since kidney function is improving, he likely wont need outpatient dialysis. Dialysis catheter to be removed tomorrow. * #Hyperkalemia: Resolved #A. fib: * on metoprolol 25mg bid. #Type 2 diabetes mellitus: * Home oral meds on hold. * On Lantus 30 units with breakfast. Insulin sliding scale. Checks AC at bedtime. #Hyperlipidemia: On statin DVT prophylaxis: Heparin Disposition:awaiting placement Charges/Coding Visit Charges Inpatient E&M: 82442 Subs Hosp L2
[2021-02-05 12:05] LABS: Bedside Glucose 208 mg/dL (70-110)
[2021-02-05] MEDS: Ondansetron 4 MG/2 ML Vial IV (14:30)
[2021-02-05 16:51] LABS: Bedside Glucose 263 mg/dL (70-110)
--- NOTE | 2021-02-05 23:55 | NURSING ---
Patient refusing to be repositioned education provided on skin breakdown patient states no several times.
[2021-02-06] VITALS (16 sets, daily range): BP systolic 108–137; BP diastolic 60–80; PULSE 71–100; RESP 16–18; TEMP 36.3–37.5; O2SAT 93–100
[2021-02-06 00:45] LABS: Bedside Glucose 265 mg/dL (70-110)
--- NOTE | 2021-02-06 04:03 | NURSING ---
Patient refuses to have catheter removed. Yellow crust around head of penis and Cuello tubing. Melissa care provided in which patient tolerated well. Education on the importance of removing Cuello and infection risk with verbalized understanding patient refused to allow this nurse to remove Cuello and states no and not today and asks to be left alone.
[2021-02-06 06:21] LABS: Absolute Neutrophil Count 11.4 X10^3/uL (2.0-7.7); Basophil# 0.05 X10^3/uL; Basophil% 0.4 % (0-1); Eosinophil# 0.28 X10^3/uL; Eosinophils% 2.1 % (0-5); Hematocrit 27.9 % (40-54); Hemoglobin 8.5 g/dL (13.0-16.5); Lymphocyte % 8.8 % (19-41); Mean Corp Hgb Conc 30.5 g/dL (32-36); Mean Corpuscular Hgb 26.6 pg (27.0-32.0); Mean Corpuscular Volume 87.2 fL (80-94); Mean Platelet Vol. 9.1 fl (6.2-12.0); Monocyte# 0.57 X10^3/uL; Monocyte% 4.2 % (0-10); NRBC Flagged by Analyzer 0 % (0-5); Neutrophil # 11.42 X10^3/uL (2.7-7.7); Neutrophil % 83.6 % (47-70); Platelet Count 451 K/mm3 (150-450); RBC Distribution Width SD 44.8 fl (35.1-43.9); White Blood Count 13.6 K/mm3 (4.4-11.0)
[2021-02-06 06:36] LABS: Anion Gap 8 (5-15); BUN 42 mg/dL (7-18); BUN/Creat Ratio 16.4 RATIO (10-20); Chloride 101 mmol/L (98-107); Creatinine, Serum 2.56 mg/dL (0.70-1.30); EST Glomerular Filtration Rate 27 mL/min (>60); Est Glom Filt Rate - Afr Amer 32 mL/min (>60); Glucose 214 mg/dL (74-106); Potassium 3.9 mmol/L (3.5-5.1); Sodium Level 138 mmol/L (136-145)
[2021-02-06 08:06] LABS: Bedside Glucose 194 mg/dL (70-110)
[2021-02-06] MEDS: Insulin Lispro 100 UNIT/ML INSULN.PEN SC ×7 (08:12→20:55)
[2021-02-06] MEDS: Midodrine HCl 5 MG Tablet 10 MG PO ×3 (08:15→16:13)
[2021-02-06] MEDS: Acetaminophen 325 MG Tablet 650 MG PO ×2 (08:42→21:00)
[2021-02-06] MEDS: Ondansetron 4 MG/2 ML Vial IV ×2 (08:42→14:40)
[2021-02-06] MEDS: Metoprolol Tartrate 25 MG Tablet PO ×2 (08:49→20:57)
[2021-02-06] MEDS: Pravastatin 20 MG Tablet PO (08:49)
[2021-02-06] MEDS: Ferrous Sulfate 325 MG Tablet PO (08:49)
[2021-02-06] MEDS: Neomycin/Bacitracin/Polymyxin Opth. Ointment 1 APPLIC RIGHT EYE (08:49)
[2021-02-06] MEDS: 0.9% Saline Lock 10 ML Syringe IV ×2 (08:49→14:40)
[2021-02-06] MEDS: Heparin Injection (Vial) 5,000 UNIT/ML VIAL 5000 UNIT SC ×2 (08:50→21:02)
[2021-02-06 12:01] LABS: Bedside Glucose 374 mg/dL (70-110)
--- NOTE | 2021-02-06 13:09 | CASEMGMT ---
STARR met with patient. Introduced self and role at [facility]. STARR told patient that [facility] is able to take him at discharge. He was still in agreement with going to [place]. He thanked STARR for letting him know. Jocy SEAY
--- NOTE | 2021-02-06 13:28 | PN.RENAL_ITS ---
Subjective Subjective No new complaints. Good urine output via Cuello catheter Objective Data Objective Data Vital Signs: Vital Signs Temp Pulse Resp BP Pulse Ox 97.3 F L 87 18 119/68 95 02/06/21 08:45 02/06/21 11:20 02/06/21 08:45 02/06/21 08:45 02/06/21 08:50 Oxygen Flow Rate (L/min) 2 Oxygen Delivery Method Nasal Cannula Weight: 98.5 kg Body Mass Index (BMI) 34.7 Intake & Output: Intake and Output for Last 24 Hours 02/04/21 02/05/21 02/06/21 23:59 23:59 23:59 Intake Total 1180 / 1400 1500 / 1940 1240 / 1240 Output Total 2625 / 3725 3150 / 4225 2675 / 2675 Balance -1445 / -2325 -1650 / -2285 -1435 / -1435 Medical Nutrition Assessment Dietitian: Malnutrition Criteria Met Start: 01/27/21 13:38 Freq: Status: Active Protocol: Document 01/31/21 14:31 AG (Rec: 01/31/21 14:31 [id number]) Nutrition Malnutrition Evidence of Malnutrition Exists Yes Malnutrition (severe): Acute Illness/Injury Evidenced By Suboptimal Energy Intake ( Severe),Weight Loss (Severe) Clinical Problem Acute Disease or Injury Related Malnutrition Etiology Severe protein-calorie malnutrition in the context of acute disease related to infection, poor appetite, inadequate oral intake Signs/Symptoms as evidenced by poor intake x 3-4 weeks, PO meeting less than 50% estimated nutrition needs and wt loss~10-11% x past month Status Active Problem Recommendation Dietitian Recommendations/Changes Will liberalize diet to carbohydrate controlled, sodium restricted d/t poor PO intake and malnutrition. Will continue 120ml Nepro supplement TID w/ meals and fortified pudding BID w/ lunch and dinner. Lab / Micro Data Result Diagrams: 02/06/21 05:40 02/06/21 05:40 Labs: Laboratory Results - last 24 hr 02/05/21 16:43: POC Glucose 263 H 02/05/21 21:51: POC Glucose 265 H 02/06/21 05:40: WBC 13.6 H, RBC 3.20 L, Hgb 8.5 L, Hct 27.9 L, MCV 87.2, MCH 26.6 L, MCHC 30.5 L, RDW Std Deviation 44.8 H, RDW Coeff of Flaco 14.0, Plt Count 451 H, MPV 9.1, Immature Gran % (Auto) 0.900, Neut % (Auto) 83.6 H, Lymph % (Auto) 8.8 L, [place] % (Auto) 4.2, Eos % (Auto) 2.1, Baso % (Auto) 0.4, Absolute Neuts (auto) 11.4 H, Absolute Lymphs (auto) 1.20, Nucleated RBC % 0 02/06/21 05:40: Sodium 138, Potassium 3.9, Chloride 101, Carbon Dioxide 29.0, Anion Gap 8, BUN 42 H, Creatinine 2.56 H, Estim Creat Clear Calc 25.10, Est GFR (MDRD) Af Amer 32 L, Est GFR (MDRD) Non-Af 27 L, BUN/Creatinine Ratio 16.4, Glucose 214 H, Calcium 10.0 02/06/21 08:02: POC Glucose 194 H 02/06/21 11:52: POC Glucose 374 H Micro: Microbiology 01/26/21 22:45 Blood Culture (Wb) - Anticubital Left Blood Culture - Final Staphylococcus hominis hominis 01/27/21 04:15 Blood Culture (Wb) - Central Line Blood Culture - Final No growth in 5 days. 01/27/21 00:14 Urine, Clean Catch Urine Culture - Final Enterococcus faecalis 01/27/21 08:00 Stool Enteric Bacteriology - Final 01/27/21 08:00 Stool C. difficile DNA Amplification - Final 01/26/21 22:50 Nasal Secretion SARS-CoV-2 Antigen (Rapid) - Final Rhythm Strip Rhythm Strip: A-fib Rate: 110 Ectopy: PVC(s) Physical Exam Narrative General: NAD. HEENT: Normocephalic, atraumatic. Mucous membrane is moist. Heart: Irregularly irregular S1, S2. Lungs: Clear to auscultation anteriorly. Abdomen: Normal bowel sounds, soft, nontender no guarding or rebound. Extremity: No edema in the lower extremities. non-tunneled HD catheter left neck dressing C/D/I Assessment & Plan Assessment/Plan (1) HELENA (acute kidney injury): PLAN: HELENA is secondary to ischemic ATN related to septic shock. Nonoliguric. There is no prior history of chronic kidney disease. Creatinine was 0.88 mg/dL in February 2020. Dialysis was started on 01/27/2021, Creatinine 7.25mg/dL. He was dialyzed again on 01/28/2021, 01/30/2021 and 02/01/2021 (pre-HD Cr 4.64m g/dL). The patient is nonoliguric. Serum creatinine has been trending down slowly Therefore, there is no acute indication for dialysis today. Will have the dialysis catheter removed (2) Hyperkalemia, diminished renal excretion: PLAN: Resolved. Potassium level is within normal range after starting dialysis. (3) Metabolic acidosis: PLAN: Resolved. Metabolic acidosis due to HELENA and poor perfusion related to sepsis. Serum bicarbonate level is back to normal range with dialysis. Continue to monitor serum bicarbonate level. (4) Hyponatremia: PLAN: Resolved. Hyponatremia was due to HELENA. (5) Sepsis secondary to UTI: PLAN: Clinically improved. The patient is being treated with antimicrobial as directed by primary service.
[2021-02-06 16:20] LABS: Bedside Glucose 254 mg/dL (70-110)
--- NOTE | 2021-02-06 18:04 | PN.HOSP_ITS ---
Subjective Subjective Follow-up on septic shock/UTI: Patient was seen and examined. Dialysis catheter has been taken off. Denied any fever or chills. Objective Data Objective Data Vital Signs: Vital Signs Temp Pulse Resp BP Pulse Ox 99.5 F H 71 16 112/80 93 02/06/21 14:40 02/06/21 15:35 02/06/21 14:40 02/06/21 14:40 02/06/21 14:40 Oxygen Flow Rate (L/min) 2 Oxygen Delivery Method Nasal Cannula Weight: 98.5 kg Body Mass Index (BMI) 34.7 Intake & Output: Intake and Output for Last 24 Hours 02/04/21 02/05/21 02/06/21 23:59 23:59 23:59 Intake Total 1180 / 1400 1500 / 1940 1240 / 1240 Output Total 2625 / 3725 3150 / 4225 2675 / 2675 Balance -1445 / -2325 -1650 / -2285 -1435 / -1435 Medical Nutrition Assessment Dietitian: Malnutrition Criteria Met Start: 01/27/21 13:38 Freq: Status: Active Protocol: Document 01/31/21 14:31 AG (Rec: 01/31/21 14:31 AG [id number]) Nutrition Malnutrition Evidence of Malnutrition Exists Yes Malnutrition (severe): Acute Illness/Injury Evidenced By Suboptimal Energy Intake ( Severe),Weight Loss (Severe) Clinical Problem Acute Disease or Injury Related Malnutrition Etiology Severe protein-calorie malnutrition in the context of acute disease related to infection, poor appetite, inadequate oral intake Signs/Symptoms as evidenced by poor intake x 3-4 weeks, PO meeting less than 50% estimated nutrition needs and wt loss~10-11% x past month Status Active Problem Recommendation Dietitian Recommendations/Changes Will liberalize diet to carbohydrate controlled, sodium restricted d/t poor PO intake and malnutrition. Will continue 120ml Nepro supplement TID w/ meals and fortified pudding BID w/ lunch and dinner. Lab / Micro Data Result Diagrams: 02/06/21 05:40 02/06/21 05:40 Labs: Laboratory Results - last 24 hr 02/05/21 21:51: POC Glucose 265 H 02/06/21 05:40: WBC 13.6 H, RBC 3.20 L, Hgb 8.5 L, Hct 27.9 L, MCV 87.2, MCH 26.6 L, MCHC 30.5 L, RDW Std Deviation 44.8 H, RDW Coeff of Flaco 14.0, Plt Count 451 H, MPV 9.1, Immature Gran % (Auto) 0.900, Neut % (Auto) 83.6 H, Lymph % (Auto) 8.8 L, [place] % (Auto) 4.2, Eos % (Auto) 2.1, Baso % (Auto) 0.4, Absolute Neuts (auto) 11.4 H, Absolute Lymphs (auto) 1.20, Nucleated RBC % 0 02/06/21 05:40: Sodium 138, Potassium 3.9, Chloride 101, Carbon Dioxide 29.0, Anion Gap 8, BUN 42 H, Creatinine 2.56 H, Estim Creat Clear Calc 25.10, Est GFR (MDRD) Af Amer 32 L, Est GFR (MDRD) Non-Af 27 L, BUN/Creatinine Ratio 16.4, Glucose 214 H, Calcium 10.0 02/06/21 08:02: POC Glucose 194 H 02/06/21 11:52: POC Glucose 374 H 02/06/21 16:12: POC Glucose 254 H Micro: Microbiology 01/26/21 22:45 Blood Culture (Wb) - Anticubital Left Blood Culture - Final Staphylococcus hominis hominis 01/27/21 04:15 Blood Culture (Wb) - Central Line Blood Culture - Final No growth in 5 days. 01/27/21 00:14 Urine, Clean Catch Urine Culture - Final Enterococcus faecalis 01/27/21 08:00 Stool Enteric Bacteriology - Final 01/27/21 08:00 Stool C. difficile DNA Amplification - Final 01/26/21 22:50 Nasal Secretion SARS-CoV-2 Antigen (Rapid) - Final Rhythm Strip Rhythm Strip: A-fib Rate: 110 Ectopy: PVC(s) Physical Exam Narrative Physical exam: General: Alert, Oriented x3, Cooperative, No apparent distress, Well developed HEENT: Atraumatic Oral: Moist Mucosa Neck: Supple Lungs: Clear to auscultation Cardiovascular: HS I+II, regular, no murmurs Abdomen: Bowel Sounds Present, Soft, Non Tender Extremities: No edema Assessment & Plan Assessment/Plan (1) Septic shock: (2) Acute renal failure: QUALIFIERS: Acute renal failure type: unspecified Qualified Code(s): N17.9 - Acute kidney failure, unspecified PLAN: 1. Septic shock due to Acute VRE UTI, resolved Patient completed antibiotics Continue on Midodrine 2. Acute kidney injury, likely secondary to ATN, improving Good urine output, creatinine continue to improve Dialysis catheter to be removed today 3. Hyperkalemia, resolved 4. Chronic atrial fibrillation, rate controlled, continue on metoprolol 5. Type II DM, blood sugars fairly controlled Continue Lantus 35 units daily Premeal insulin and insulin sliding scale Charges/Coding Visit Charges Inpatient E&M: 51679 Subs Hosp L2
--- NOTE | 2021-02-06 18:28 | DIALYSIS ---
Temporary Left IJ Dialysis Catheter Removal- Removed dressing. Cleaned catheter exit site well with chloraprep. Sutures removed. Line removed and pressure applied x 10 minutes. Hemostasis achieved. Fresh gauze and tape applied. No problems noted. Report was given to STEVE Agustin. Prior to removed: BP-127/78 HR 69 At removal: BP 125/79 HR 69 15 minutes after (1825) bp 120/76 HR 76
[2021-02-06 21:55] LABS: Bedside Glucose 227 mg/dL (70-110)
[2021-02-07] VITALS (9 sets, daily range): BP systolic 118–142; BP diastolic 64–77; PULSE 71–90; RESP 18; TEMP 36.6; O2SAT 93–98
[2021-02-07] MEDS: Ondansetron 4 MG/2 ML Vial IV (02:20)
[2021-02-07] MEDS: Acetaminophen 325 MG Tablet 650 MG PO (06:11)
[2021-02-07 06:43] LABS: Absolute Lymphocyte Count 1.45 X10^3/uL (0.83-4.51); Absolute Neutrophil Count 10.9 X10^3/uL (2.0-7.7); Basophil# 0.07 X10^3/uL; Basophil% 0.5 % (0-1); Eosinophils% 2.2 % (0-5); Hematocrit 28.8 % (40-54); Hemoglobin 9.2 g/dL (13.0-16.5); Lymphocyte # 1.45 X10^3/ul (0.83-4.51); Lymphocyte % 10.7 % (19-41); Mean Corp Hgb Conc 31.9 g/dL (32-36); Mean Corpuscular Hgb 27.7 pg (27.0-32.0); Mean Corpuscular Volume 86.7 fL (80-94); Mean Platelet Vol. 9.4 fl (6.2-12.0); Monocyte# 0.77 X10^3/uL; Monocyte% 5.7 % (0-10); NRBC Flagged by Analyzer 0 % (0-5); Neutrophil # 10.93 X10^3/uL (2.7-7.7); Neutrophil % 80.2 % (47-70); Platelet Count 484 K/mm3 (150-450); RBC Distribution Width CV 14.1 % (11.6-14.6); RBC Distribution Width SD 44.6 fl (35.1-43.9); Red Blood Count 3.32 M/mm3 (4.6-6.2); White Blood Count 13.6 K/mm3 (4.4-11.0)
[2021-02-07 07:27] LABS: Albumin, Serum 2.1 g/dL (3.2-5.0); BUN 38 mg/dL (7-18); Calcium,Total 10.3 mg/dL (8.5-10.1); Chloride 99 mmol/L (98-107); Creatinine, Serum 2.24 mg/dL (0.70-1.30); EST Glomerular Filtration Rate 31 mL/min (>60); Est Glom Filt Rate - Afr Amer 38 mL/min (>60); Estimated Creatinine Clearance 28.69 ml/min; Glucose 205 mg/dL (74-106); Phosphorus 3.8 mg/dL (2.5-4.9); Potassium 3.8 mmol/L (3.5-5.1); Sodium Level 138 mmol/L (136-145)
[2021-02-07 07:50] LABS: Bedside Glucose 210 mg/dL (70-110)
[2021-02-07] MEDS: Insulin Lispro 100 UNIT/ML INSULN.PEN SC ×4 (07:51→11:11)
[2021-02-07] MEDS: Midodrine HCl 5 MG Tablet 10 MG PO ×2 (07:52→11:11)
[2021-02-07] MEDS: Heparin Injection (Vial) 5,000 UNIT/ML VIAL 5000 UNIT SC (09:08)
[2021-02-07] MEDS: Ferrous Sulfate 325 MG Tablet PO (09:08)
[2021-02-07] MEDS: Neomycin/Bacitracin/Polymyxin Opth. Ointment 1 APPLIC RIGHT EYE (09:08)
[2021-02-07] MEDS: Metoprolol Tartrate 25 MG Tablet PO (09:08)
[2021-02-07] MEDS: Pravastatin 20 MG Tablet PO (09:09)
--- NOTE | 2021-02-07 09:20 | PCM.TXEXTCAR ---
Diet 01/31/21 14:30 Diet: Carbohydrate Controlled Food consistency:: Regular Liquid Consistency:: Regular/Thin Dietary Modifications:: Sodium Restricted Type of Dietary Supplement:: Nepro Is pt able to select menu?: No Diet Comments: 120ml Nepro TID w/ meals; fortified pudding BID w/ lunch and dinner Routine Orders/Code Status Keep PO Greater than or Equal to (%): 94 Routine Lab Work: CBC (within 3 days) and BMP (within 3 days) Code Status: Full Code Wound(s) LLE: Wound Type: Puncture left index finger: Wound Type: Abrasion Bottom: Wound Type: Abrasion Therapies Weight Bearing: Weight bearing as tolerated Physical Therapy: Eval and Treat Occupational Therapy: Eval and Treat Problem/Diagnosis (1) Septic shock: Status: Acute (2) Acute renal failure: Status: Acute Allergies/Procedures Done in Hospital Allergies Unable to Assess Allergy (Verified 01/26/21 21:44) Procedures: 2-D Echocardiogram Type of Care/Length of Stay Estimated LOS: Convalescent Care Less Than 30 days Type of Care Needed: Skilled Rehab Potential: Good Prognosis: Good Additional Orders/Day of Discharge Day of Discharge: 02/07/21 Dietary and Speech Recommendations Dietitian Recommendations/Changes: Will continue carbohydrate controlled, sodium restricted diet d/t poor PO intake and malnutrition. Will continue 120ml Nepro supplement TID w/ meals and fortified pudding BID w/ lunch and dinner. Discharge Plan Admission Admit Date/Time: 01/27/21 05:55 Primary Reason for Your Visit: Septic shock/UTI Attending Provider: Leesa Lobo [facility] Providers: Lavell Huerta ; Taran Womack Discharge Orders/Prescriptions Prescriptions: New Lantus Solostar U-100 Insulin 100 unit/mL (3 mL) Insulin Pen 35 units subcut BREAKFAST Qty: 0 RF: 0 insulin lispro [Humalog KwikPen Insulin] 100 unit/mL Insulin Pen 5 unit subcut BREAKFAST 30 Days Qty: 0 RF: 0 metoprolol tartrate 25 mg Tablet 25 mg PO BID Qty: 0 RF: 0 insulin lispro [Humalog KwikPen Insulin] 100 unit/mL Insulin Pen 5 unit subcut DINNER 30 Days Qty: 0 RF: 0 insulin lispro [Humalog KwikPen Insulin] 100 unit/mL Insulin Pen 5 unit subcut LUNCH Qty: 0 RF: 0 glimepiride 4 mg tablet 4 mg PO DAILY Qty: 60 RF: 0 Continued pravastatin 20 mg tablet 20 mg PO DAILY RF: 0 ferrous sulfate 325 mg (65 mg iron) Capsule, Extended Release 325 mg PO DAILY RF: 0 Discontinued hydrochlorothiazide 50 mg tablet 50 mg PO DAILY RF: 0 lisinopril 20 mg tablet 20 mg PO BID RF: 0 metformin 1,000 mg tablet 1,000 mg PO BID RF: 0 glimepiride 4 mg tablet 8 mg PO DAILY RF: 0 metoprolol tartrate 100 mg tablet 100 mg PO BID RF: 0 Referrals / Follow Up: Taran Womack MD [STAFF PHYSICIAN] - Within 2 Weeks Medical Frederick,Pauline Scales [Primary Care Provider] - Within 2 Weeks Disposition Disposition (needs filled in before D/C Order can be placed): [facility] Facility
--- NOTE | 2021-02-07 09:21 | DS.PCM_ITS ---
Providers Date of Admission: 01/27/21 Date of Discharge: 02/07/21 Primary Care Physician: [facility] Consultations 01/27/21 07:31 Consult: Customer Support Analyst / Pulmonary Medicine Routine Consulting Provider: Lavell Huerta Reason for Consult: Sepsis EMERGENT Consult: No Notified: Yes Date Notified: 01/27/21 Time Notified: 06:10 Method of Notification: Verbal Consult: Nephrology Routine Consulting Provider: Taran Womack Reason for Consult: HELENA EMERGENT Consult: No Notified: Yes Date Notified: 01/27/21 Time Notified: 06:10 Method of Notification: Notified by ED Reason For Visit: SEPSIS Diagnosis Discharge Diagnosis (1) Septic shock: Status: Acute Code(s): A41.9 - Sepsis, unspecified organism; R65.21 - Severe sepsis with septic shock (2) Acute renal failure: Status: Acute Code(s): N17.9 - Acute kidney failure, unspecified Qualifiers: Acute renal failure type: unspecified Qualified Code(s): N17.9 - Acute kidney failure, unspecified (3) Sepsis secondary to UTI: Status: Acute Code(s): A41.9 - Sepsis, unspecified organism; N39.0 - Urinary tract infection, site not specified (4) HELENA (acute kidney injury): Status: Acute Code(s): N17.9 - Acute kidney failure, unspecified (5) Metabolic acidosis: Status: Acute Code(s): E87.2 - Acidosis (6) Hyperkalemia: Status: Acute Code(s): E87.5 - Hyperkalemia (7) Severe protein-calorie malnutrition: Status: Acute Code(s): E43 - Unspecified severe protein-calorie malnutrition Medications at Discharge Home Medications ferrous sulfate 325 mg PO DAILY 01/26/21 pravastatin 20 mg PO DAILY 01/26/21 glimepiride 4 mg PO DAILY #60 tab 02/07/21 insulin glargine [Lantus Solostar U-100 Insulin] 35 units SUBCUT BREAKFAST #0 ml 02/07/21 insulin lispro [Humalog KwikPen Insulin] 5 unit SUBCUT BREAKFAST 30 Days #0 ml 02/07/21 insulin lispro [Humalog KwikPen Insulin] 5 unit SUBCUT DINNER 30 Days #0 ml 02/07/21 insulin lispro [Humalog KwikPen Insulin] 5 unit SUBCUT LUNCH #0 ml 02/07/21 metoprolol tartrate 25 mg PO BID #0 tab 02/07/21 Hospital Course Operations None Procedures 2-D Echocardiogram and - (Renal ultrasound) Summary of Care Provided Minutes Spent on Discharge: 50 Hospital Course: 71-year-old male with past medical history of type II DM, hypertension who presented to the hospital with unresponsiveness. This chair is broken to his home and found that he is passed out. His blood sugar was 37. He received dextrose and glucagon. Patient had reported 2 to 3 weeks history of diarrhea. He admits to having 4-6 loose stools. He admits to urinary retention, fatigue and weakness. Patient was on oral hypoglycemic agents?Metformin and glimepiride. He had taking his glimepiride on the day of admission. Patient was initially started on IV fluids. He was put in ICU as he was hypotensive. His urine cultures grew VRE. Patient got a central line placed in the ICU and was put on pressors. Nephrology was consulted for acute kidney injury. Patient did need dialysis. Patient generally continued to improve and did not need anymore dialysis. Dialysis catheter was removed. Patient's renal function was even more improved at discharge. He completed antibiotics for his VRE during his hospital stay. He was skilled for discharge to the long term facility. Patient had evidence of malnutrition, materials planner/production planner consulted, was put on supplements. He will follow up with nephrology in the outpatient within 1 to 2 weeks. Physical Exam Narrative Physical exam: General: Alert, Oriented x3, Cooperative, No apparent distress, Well developed HEENT: Atraumatic Oral: Moist Mucosa Neck: Supple Lungs: Clear to auscultation Cardiovascular: HS I+II, regular, no murmurs Abdomen: Bowel Sounds Present, Soft, Non Tender Extremities: No edema Medical Records Data Medical Nutrition Assessment Dietitian: Malnutrition Criteria Met Start: 01/27/21 13:38 Freq: Status: Active Protocol: Document 01/31/21 14:31 AG (Rec: 01/31/21 14:31 AG [id number]) Nutrition Malnutrition Evidence of Malnutrition Exists Yes Malnutrition (severe): Acute Illness/Injury Evidenced By Suboptimal Energy Intake ( Severe),Weight Loss (Severe) Clinical Problem Acute Disease or Injury Related Malnutrition Etiology Severe protein-calorie malnutrition in the context of acute disease related to infection, poor appetite, inadequate oral intake Signs/Symptoms as evidenced by poor intake x 3-4 weeks, PO meeting less than 50% estimated nutrition needs and wt loss~10-11% x past month Status Active Problem Recommendation Dietitian Recommendations/Changes Will liberalize diet to carbohydrate controlled, sodium restricted d/t poor PO intake and malnutrition. Will continue 120ml Nepro supplement TID w/ meals and fortified pudding BID w/ lunch and dinner. Weight / BMI Weight Weight: 97.4 kg Body Mass Index (BMI) 34.7 ABG / Lab / Microbiology Data Result Diagrams: 02/07/21 05:50 02/07/21 05:50 Laboratory: Laboratory Results - last 24 hr 02/06/21 11:52: POC Glucose 374 H 02/06/21 16:12: POC Glucose 254 H 02/06/21 20:53: POC Glucose 227 H 02/07/21 05:50: WBC 13.6 H, RBC 3.32 L, Hgb 9.2 L, Hct 28.8 L, MCV 86.7, MCH 27.7, MCHC 31.9 L, RDW Std Deviation 44.6 H, RDW Coeff of Flaco 14.1, Plt Count 484 H, MPV 9.4, Immature Gran % (Auto) 0.700, Neut % (Auto) 80.2 H, Lymph % (Auto) 10.7 L, [place] % (Auto) 5.7, Eos % (Auto) 2.2, Baso % (Auto) 0.5, Absolute Neuts (auto) 10.9 H, Absolute Lymphs (auto) 1.45, Nucleated RBC % 0 02/07/21 05:50: Sodium 138, Potassium 3.8, Chloride 99, Carbon Dioxide 29.0, BUN 38 H, Creatinine 2.24 H, Estim Creat Clear Calc 28.69, Est GFR (MDRD) Af Amer 38 L, Est GFR (MDRD) Non-Af 31 L, BUN/Creatinine Ratio 17.0, Glucose 205 H, Calcium 10.3 H, Phosphorus 3.8, Albumin 2.1 L 02/07/21 07:36: POC Glucose 210 H Microbiology: Microbiology 01/26/21 22:45 Blood Culture (Wb) - Anticubital Left Blood Culture - Final Staphylococcus hominis hominis 01/27/21 04:15 Blood Culture (Wb) - Central Line Blood Culture - Final No growth in 5 days. 01/27/21 00:14 Urine, Clean Catch Urine Culture - Final Enterococcus faecalis 01/27/21 08:00 Stool Enteric Bacteriology - Final 01/27/21 08:00 Stool C. difficile DNA Amplification - Final 01/26/21 22:50 Nasal Secretion SARS-CoV-2 Antigen (Rapid) - Final D/C Instructions Discharge Diet: No restrictions Meaningful Use Info Meaningful Use Diagnoses (Choose all that apply): None applicable Discharge Plan Admission Admit Date/Time: 01/27/21 05:55 Primary Reason for Your Visit: Septic shock/UTI Attending Provider: Leesa Lobo [facility] Consult[facility] Providers: Lavell Huerta ; Taran Womack Discharge Orders/Prescriptions Prescriptions: New Lantus Solostar U-100 Insulin 100 unit/mL (3 mL) Insulin Pen 35 units subcut BREAKFAST Qty: 0 RF: 0 insulin lispro [Humalog KwikPen Insulin] 100 unit/mL Insulin Pen 5 unit subcut BREAKFAST 30 Days Qty: 0 RF: 0 metoprolol tartrate 25 mg Tablet 25 mg PO BID Qty: 0 RF: 0 insulin lispro [Humalog KwikPen Insulin] 100 unit/mL Insulin Pen 5 unit subcut DINNER 30 Days Qty: 0 RF: 0 insulin lispro [Humalog KwikPen Insulin] 100 unit/mL Insulin Pen 5 unit subcut LUNCH Qty: 0 RF: 0 glimepiride 4 mg tablet 4 mg PO DAILY Qty: 60 RF: 0 Continued pravastatin 20 mg tablet 20 mg PO DAILY RF: 0 ferrous sulfate 325 mg (65 mg iron) Capsule, Extended Release 325 mg PO DAILY RF: 0 Discontinued hydrochlorothiazide 50 mg tablet 50 mg PO DAILY RF: 0 lisinopril 20 mg tablet 20 mg PO BID RF: 0 metformin 1,000 mg tablet 1,000 mg PO BID RF: 0 glimepiride 4 mg tablet 8 mg PO DAILY RF: 0 metoprolol tartrate 100 mg tablet 100 mg PO BID RF: 0 Referrals / Follow Up: Taran Womack MD [STAFF PHYSICIAN] - Within 2 Weeks [facility] - Within 2 Weeks Disposition Disposition (needs filled in before D/C Order can be placed): Alf Facility Charges/Coding Visit Charges Inpatient E&M: 33368 Disch Hosp
--- NOTE | 2021-02-07 09:35 | NURSING ---
Central line dc'd per order. Tip intact. Pressure held x 5 min. 2 sutures removed. Vaseline gauze with 2x2 and Tegaderm applied. Instructed to lie flat x 30min.
--- NOTE | 2021-02-07 10:24 | PN.RENAL_ITS ---
Subjective Subjective no new complaints Objective Data Objective Data Vital Signs: Vital Signs Temp Pulse Resp BP Pulse Ox 97.9 F 80 18 120/77 98 02/07/21 09:06 02/07/21 09:08 02/07/21 09:06 02/07/21 09:06 02/07/21 09:06 Oxygen Flow Rate (L/min) 2 Oxygen Delivery Method Nasal Cannula Weight: 97.4 kg Body Mass Index (BMI) 34.7 Intake & Output: Intake and Output for Last 24 Hours 02/05/21 02/06/21 02/07/21 23:59 23:59 23:59 Intake Total 1500 / 1940 1700 / 1700 Output Total 3150 / 4225 4150 / 4150 1050 / 1050 Balance -1650 / -2285 -2450 / -2450 -1050 / -1050 Medical Nutrition Assessment Dietitian: Malnutrition Criteria Met Start: 01/27/21 13:38 Freq: Status: Active Protocol: Document 01/31/21 14:31 AG (Rec: 01/31/21 14:31 [id number]) Nutrition Malnutrition Evidence of Malnutrition Exists Yes Malnutrition (severe): Acute Illness/Injury Evidenced By Suboptimal Energy Intake ( Severe),Weight Loss (Severe) Clinical Problem Acute Disease or Injury Related Malnutrition Etiology Severe protein-calorie malnutrition in the context of acute disease related to infection, poor appetite, inadequate oral intake Signs/Symptoms as evidenced by poor intake x 3-4 weeks, PO meeting less than 50% estimated nutrition needs and wt loss~10-11% x past month Status Active Problem Recommendation Dietitian Recommendations/Changes Will liberalize diet to carbohydrate controlled, sodium restricted d/t poor PO intake and malnutrition. Will continue 120ml Nepro supplement TID w/ meals and fortified pudding BID w/ lunch and dinner. Lab / Micro Data Result Diagrams: 02/07/21 05:50 02/07/21 05:50 Labs: Laboratory Results - last 24 hr 02/06/21 11:52: POC Glucose 374 H 02/06/21 16:12: POC Glucose 254 H 02/06/21 20:53: POC Glucose 227 H 02/07/21 05:50: WBC 13.6 H, RBC 3.32 L, Hgb 9.2 L, Hct 28.8 L, MCV 86.7, MCH 27.7, MCHC 31.9 L, RDW Std Deviation 44.6 H, RDW Coeff of Flaco 14.1, Plt Count 484 H, MPV 9.4, Immature Gran % (Auto) 0.700, Neut % (Auto) 80.2 H, Lymph % (Auto) 10.7 L, [place] % (Auto) 5.7, Eos % (Auto) 2.2, Baso % (Auto) 0.5, Absolute Neuts (auto) 10.9 H, Absolute Lymphs (auto) 1.45, Nucleated RBC % 0 02/07/21 05:50: Sodium 138, Potassium 3.8, Chloride 99, Carbon Dioxide 29.0, BUN 38 H, Creatinine 2.24 H, Estim Creat Clear Calc 28.69, Est GFR (MDRD) Af Amer 38 L, Est GFR (MDRD) Non-Af 31 L, BUN/Creatinine Ratio 17.0, Glucose 205 H, Calcium 10.3 H, Phosphorus 3.8, Albumin 2.1 L 02/07/21 07:36: POC Glucose 210 H Micro: Microbiology 01/26/21 22:45 Blood Culture (Wb) - Anticubital Left Blood Culture - Final Staphylococcus hominis hominis 01/27/21 04:15 Blood Culture (Wb) - Central Line Blood Culture - Final No growth in 5 days. 01/27/21 00:14 Urine, Clean Catch Urine Culture - Final Enterococcus faecalis 01/27/21 08:00 Stool Enteric Bacteriology - Final 01/27/21 08:00 Stool C. difficile DNA Amplification - Final 01/26/21 22:50 Nasal Secretion SARS-CoV-2 Antigen (Rapid) - Final Rhythm Strip Rhythm Strip: A-fib Rate: 110 Ectopy: PVC(s) Physical Exam Narrative General: NAD. HEENT: Normocephalic, atraumatic. Mucous membrane is moist. Heart: Irregularly irregular S1, S2. Lungs: Clear to auscultation anteriorly. Abdomen: Normal bowel sounds, soft, nontender no guarding or rebound. Extremity: No edema in the lower extremities. Assessment & Plan Assessment/Plan (1) HELENA (acute kidney injury): PLAN: HELENA is secondary to ischemic ATN related to septic shock. Nonoli guric. There is no prior history of chronic kidney disease. Creatinine was 0.88 mg/dL in February 2020. Dialysis was started on 01/27/2021, Creatinine 7.25mg/dL. He was dialyzed again on 01/28/2021, 01/30/2021 and 02/01/2021 (pre-HD Cr 4.64mg/dL). The patient is nonoliguric. Serum creatinine has been trending down slowly Therefore, there is no acute indication for dialysis today. dialysis catheter out fontenot can come out (2) Hyperkalemia, diminished renal excretion: PLAN: Resolved. Potassium level is within normal range after starting dialysis. (3) Metabolic acidosis: PLAN: Resolved. Metabolic acidosis due to HELENA and poor perfusion related to sepsis. Serum bicarbonate level is back to normal range with dialysis. Continue to monitor serum bicarbonate level. (4) Hyponatremia: PLAN: Resolved. Hyponatremia was due to HELENA. (5) Sepsis secondary to UTI: PLAN: Clinically improved. The patient is being treated with antimicrobial as directed by primary service.
[2021-02-07 11:25] LABS: Bedside Glucose 300 mg/dL (70-110)
--- NOTE | 2021-02-07 11:49 | CASEMGMT ---
Addendum entered by Jocy Henriquez 02/07/21 12:15: STARR called Adry at [facility] and let her know belt picker time. STARR also faxed the negative COVID test to [facility]. Jocy SEAY Original Note: Patient is ready for discharge to [facility]. STARR faxed orders to [facility]. STARR arranged for patient to get picked up at 1400 via cot. STARR notified patient and offered to call family. Patient declined stating he let his daughter know he will be going there later today. STARR will update RN, police department secretary, and Adry at [facility]. Jocy SEAY
--- NOTE | 2021-02-07 13:10 | NURSING ---
This RN called and gave report to STEVE Oglesby at the assisted.
== END 2021-02-07 14:26 | DRG 871 ==
LOC: ED 23:14 → ICU 01-27 06:31 → PCU 02-01 01:00
PROVIDERS: Internal Medicine Critical Care Medicine; Internal Medicine Nephrology; Student in an Organized Health Care Education/Training Program; Admitting Provider Hospitalist; Emergency Provider Emergency Medicine; Visit Provider Internal Medicine
DX: A41.81 Sepsis due to Enterococcus (principal); N17.0 Acute kidney failure with tubular necrosis; R65.21 Severe sepsis with septic shock; E43 Unspecified severe protein-calorie malnutrition; G93.41 Metabolic encephalopathy; N39.0 Urinary tract infection, site not specified; E87.5 Hyperkalemia; Z68.34 Body mass index [BMI] 34.0-34.9, adult; I49.3 Ventricular premature depolarization; I48.91 Unspecified atrial fibrillation; I95.9 Hypotension, unspecified; S05.01XA Injury of conjunctiva and corneal abrasion without foreign body, right eye, initial encounter; E11.649 Type 2 diabetes mellitus with hypoglycemia without coma; E11.65 Type 2 diabetes mellitus with hyperglycemia; I10 Essential (primary) hypertension; E66.9 Obesity, unspecified; R19.7 Diarrhea, unspecified; Z91.19 Patient's noncompliance with other medical treatment and regimen; E83.42 Hypomagnesemia; Z79.84 Long term (current) use of oral hypoglycemic drugs; Z79.899 Other long term (current) drug therapy; Z87.891 Personal history of nicotine dependence
CPT/HCPCS: 36415; 51702; 71045; 76770; 80048; 80053; 80069; 80202; 81001; 82962; 83605; 83735; 84443; 84484; 85025; 85610; 85730; 86704; 87040; 87077; 87086; 87088; 87186; 87340; 87426; 87493; 87506; 90937; 93005; 93306; 94762; 97110; 97162; 97166; 97530; 97535; 97802; 97803; 99285; J7030; J7040; J7050; A4216; C1752; G0257; J2405

== ENCOUNTER 2021-04-12 09:40 | Outpatient (CLI) | payer MEDICARE, OTHER, SELFPAY ==
[2021-04-12 10:28] LABS: Absolute Neutrophil Count 7.8 X10^3/uL (2.0-7.7); Basophil# 0.04 X10^3/uL; Basophil% 0.4 % (0-1); Eosinophil# 0.22 X10^3/uL; Eosinophils% 2.1 % (0-5); Hematocrit 33.6 % (40-54); Hemoglobin 11.2 g/dL (13.0-16.5); Lymphocyte % 15.5 % (19-41); Mean Corp Hgb Conc 33.3 g/dL (32-36); Mean Corpuscular Hgb 28.9 pg (27.0-32.0); Mean Corpuscular Volume 86.6 fL (80-94); Mean Platelet Vol. 9.9 fl (6.2-12.0); Monocyte# 0.55 X10^3/uL; Monocyte% 5.3 % (0-10); NRBC Flagged by Analyzer 0 % (0-5); Neutrophil # 7.84 X10^3/uL (2.7-7.7); Neutrophil % 76.2 % (47-70); Platelet Count 329 K/mm3 (150-450); RBC Distribution Width CV 13.6 % (11.6-14.6); RBC Distribution Width SD 42.7 fl (35.1-43.9); Red Blood Count 3.88 M/mm3 (4.6-6.2); White Blood Count 10.3 K/mm3 (4.4-11.0)
[2021-04-12 11:10] LABS: Vitamin B12 208 pg/mL (211-911)
[2021-04-12 11:13] LABS: ALB/GLOB Ratio 0.8 RATIO (0.9-2.4); AST(SGOT) 9 U/L (15-37); Alanine Aminotransfer ALT/SGPT 16 U/L (16-61); Albumin, Serum 3.2 g/dL (3.2-5.0); Alkaline Phosphatase 65 U/L (45-117); Anion Gap 4 (5-15); BUN 18 mg/dL (7-18); BUN/Creat Ratio 16.4 RATIO (10-20); Calcium,Total 10.4 mg/dL (8.5-10.1); Chloride 105 mmol/L (98-107); Cholesterol 151 mg/dL (200); EST Glomerular Filtration Rate 70 mL/min (>60); Est Glom Filt Rate - Afr Amer 85 mL/min (>60); Globulin 3.9 g/dL (2.2-4.2); Glucose 117 mg/dL (74-106); High Density Lipoprotein 35 mg/dL; Iron 42 ug/dL (65-175); Iron Binding Capacity,Total 254 ug/dL (250-450); Potassium 3.1 mmol/L (3.5-5.1); Protein, Total 7.1 g/dL (6.4-8.2); Sodium Level 141 mmol/L (136-145); Triglycerides 91 mg/dL; Very Low Density Lipoprotein 18 mg/dL (5-40)
[2021-04-14 14:06] LABS: Vitamin D 1,25-Dihydroxy 13.1 pg/mL (19.9-79.3)
== END 2021-04-12 23:59 | disposition home or self-care (01) ==
DX: E11.65 Type 2 diabetes mellitus with hyperglycemia (principal)
CPT/HCPCS: 36415; 80053; 80061; 82607; 82652; 83540; 83550; 85025

== ENCOUNTER 2021-05-02 09:46 | Outpatient (CLI) | payer MEDICARE, OTHER, SELFPAY ==
[2021-05-02 11:44] LABS: Potassium 3.7 mmol/L (3.5-5.1)
== END 2021-05-02 23:59 | disposition home or self-care (01) ==
PROVIDERS: Referring Provider Nurse Practitioner Adult Health; Visit Provider Nurse Practitioner Adult Health
DX: D64.9 Anemia, unspecified (principal); E87.6 Hypokalemia
CPT/HCPCS: 36415; 84132

== ENCOUNTER → 2021-07-06 | Outpatient (CLI) | payer MEDICARE, OTHER, SELFPAY ==
--- NOTE | 2021-07-06 16:19 | EKG12_ITS ---
Test Reason : Blood Pressure : / mmHG Vent. Rate : 083 BPM Atrial Rate : 115 BPM P-R Int : 000 ms QRS Dur : 080 ms QT Int : 356 ms P-R-T Axes : 000 069 050 degrees QTc Int : 418 ms Atrial fibrillation Abnormal ECG Confirmed by DEAN MAYEN, RENATA ([id number]), script editor JOSE LATHAM ([id number]) on 07/10/2021 9:46:40 AM Referred By: Lawanda aMo Confirmed By:CHECO MORAN MD
== END | disposition home or self-care (01) ==
LOC: PSN 16:16
PROVIDERS: Referring Provider Nurse Practitioner Adult Health; Visit Provider Nurse Practitioner Adult Health
DX: I49.9 Cardiac arrhythmia, unspecified (principal)
CPT/HCPCS: 93005

== ENCOUNTER → 2021-07-21 | Outpatient (CLI) | payer MEDICARE, OTHER, SELFPAY ==
[2021-07-21 10:37] LABS: BNP,B-Type NATRIURETIC PEPTIDE 167.3 pg/mL (0-100)
[2021-07-21 10:41] LABS: Vitamin B12 727 pg/mL (211-911); Vitamin D,25 Hydroxy 84.9 ng/mL
[2021-07-21 11:10] LABS: Anion Gap 8 (5-15); BUN 16 mg/dL (7-18); BUN/Creat Ratio 13.7 RATIO (10-20); Calcium,Total 9.6 mg/dL (8.5-10.1); Chloride 105 mmol/L (98-107); Creatinine, Serum 1.17 mg/dL (0.70-1.30); EST Glomerular Filtration Rate 65 mL/min (>60); Est Glom Filt Rate - Afr Amer 79 mL/min (>60); Glucose 139 mg/dL (74-106); Iron 39 ug/dL (65-175); Iron Binding Capacity,Total 347 ug/dL (250-450); Magnesium 1.7 mg/dL (1.6-2.6); Potassium 3.7 mmol/L (3.5-5.1); Sodium Level 139 mmol/L (136-145); Thyroid Stim Hormone (TSH) 1.88 uIU/mL (0.358-3.74)
== END | disposition home or self-care (01) ==
LOC: LAB 09:43
PROVIDERS: Referring Provider Nurse Practitioner Adult Health; Visit Provider Nurse Practitioner Adult Health
DX: D64.9 Anemia, unspecified (principal); N17.9 Acute kidney failure, unspecified; I49.9 Cardiac arrhythmia, unspecified
CPT/HCPCS: 36415; 80048; 82306; 82607; 82746; 83540; 83550; 83735; 83880; 84443

== ENCOUNTER → 2021-11-20 | Outpatient (CLI) | payer MEDICARE, OTHER, SELFPAY ==
--- NOTE | 2021-11-20 13:43 | ECHOCS_ITS ---
Reason For Study: Afib/Flutter Procedure This was a 2D Doppler, Color Flow transthoracic echocardiogram. The study was technically difficult. Contrast injection was performed. Exam performed in department. Left Ventricle Normal LV size. Left ventricular systolic function is normal. The estimated ejection fraction is 65 %. No regional wall motion abnormalities noted. Right Ventricle Normal RV size. Normal systolic function. Atria The left atrium is moderately enlarged. The right atrium is mildly enlarged. Mitral Valve There is mild to moderate mitral annular calcification. Tricuspid Valve Normal tricuspid valve. Aortic Valve Trisinus/trileaflet aortic valve. Mild focal aortic valve calcification. Peak aortic valve gradient 20 mmHg. Mean aortic valve gradient 10 mmHg. Pericardium/Pleural No pericardial effusion. Medication 20 gauge I.V. with prn adaptor inserted into left arm. Diluted definity 1ml given slow IV push to enhance endocardial definition. MMode/2D Measurements & Calculations LVIDd: 4.0 cm IVSd: 1.0 cm LVOT diam: 2.0 cm LVIDs: 2.4 cm LVPWd: 1.1 cm LVOT area: 3.1 cm2 RVDd: 3.8 cm FS: 40.2 % Ao root diam: 3.7 cm LAV(MOD-bp): 95.9 ml Aortic Valve Planimetry: 1.1 cm2 LA dimension: 5.4 cm LAV(MOD-bp) Indexed: 43.5 ml/m2 LAV(MOD-sp2): 89.2 ml LAV(MOD-sp4): 103.5 ml LA A4 area: 29.5 cm2 RA A4 area: 25.3 cm2 Doppler Measurements & Calculations MV E max shelia: 141.2 cm/sec Ao V2 max: 227.7 cm/sec LV V1 max: 81.6 cm/sec Ao max P.7 mmHg LV V1 max P.7 mmHg Ao V2 mean: 149.8 cm/sec LV V1 mean P.5 mmHg Ao mean P.5 mmHg LV V1 mean: 56.8 cm/sec Ao V2 VTI: 45.9 cm LV V1 VTI: 16.9 cm GEORGETTE(I,D): 1.2 cm2 GEORGETTE(V,D): 1.1 cm2 SV(LVOT): 53.1 ml PA V2 max: 84.8 cm/sec PI end-d shelia: 119.4 cm/sec TR max shelia: 313.6 cm/sec TR max P.9 mmHg ECHO/Echo Complete W/ Contrast Interpretation Summary Normal LV size. Left ventricular systolic function is normal. The estimated ejection fraction is 65 %. The left atrium is moderately enlarged. The right atrium is mildly enlarged. There is mild to moderate mitral annular calcification. Mean aortic valve gradient 10 mmHg. Contrast injection was performed. Contrast injection was performed. Ordering Physician: Seth, Newton Referring Physician: Aly Ann Performed By: Jin Henriquez RCS
== END | disposition home or self-care (01) ==
LOC: CVS 13:42
PROVIDERS: Referring Provider Internal Medicine Cardiovascular Disease; Visit Provider Internal Medicine Cardiovascular Disease
DX: I48.91 Unspecified atrial fibrillation (principal); R94.31 Abnormal electrocardiogram [ECG] [EKG]
CPT/HCPCS: 93306; Q9957; A4216; C8929

== ENCOUNTER 2021-12-14 09:45 | Outpatient (RCR) | payer MEDICARE, OTHER, SELFPAY ==
[2021-11-30 09:50] LABS: INR Fingerstick 1.3; Prothrombin Time Fingerstick 15.5 SEC (11.7-14.9)
[2021-12-07 11:14] LABS: International Normalized Ratio 1.4; Prothrombin Time (Protime)PT. 17.1 SECONDS (11.7-14.9)
[2021-12-07 11:17] LABS: Protein, Urine (Random) 43.4 mg/dL (<11.9); Protein:Creat Ratio 1051 mg/g CRE (0-200)
[2021-12-07 11:25] LABS: Anion Gap 7 (5-15); BUN 14 mg/dL (7-18); Calcium,Total 10.3 mg/dL (8.5-10.1); Chloride 100 mmol/L (98-107); Creatinine, Serum 1.08 mg/dL (0.70-1.30); EST Glomerular Filtration Rate 72 mL/min (>60); Est Glom Filt Rate - Afr Amer 87 mL/min (>60); Glucose 184 mg/dL (74-106); Potassium 3.8 mmol/L (3.5-5.1); Sodium Level 136 mmol/L (136-145)
== END 2021-12-14 18:00 | disposition home or self-care (01) ==
LOC: LAB 09:45
PROVIDERS: Referring Provider Internal Medicine Cardiovascular Disease; Visit Provider Internal Medicine Cardiovascular Disease
DX: E87.5 Hyperkalemia (principal); N17.9 Acute kidney failure, unspecified; I48.0 Paroxysmal atrial fibrillation; Z79.01 Long term (current) use of anticoagulants
CPT/HCPCS: 36415; 36416; 80048; 82570; 84156; 85610

== ENCOUNTER 2022-01-17 09:17 | Outpatient (RCR) | payer MEDICARE, OTHER, SELFPAY ==
[2021-12-28 16:21] LABS: INR Fingerstick 2.3; Prothrombin Time Fingerstick 26.8 SEC (11.7-14.9)
[2022-01-17 09:26] LABS: INR Fingerstick 2.5; Prothrombin Time Fingerstick 29.5 SEC (11.7-14.9)
== END 2022-01-17 18:00 | disposition home or self-care (01) ==
LOC: LAB 09:17
PROVIDERS: Referring Provider Internal Medicine Cardiovascular Disease; Visit Provider Internal Medicine Cardiovascular Disease
DX: I48.0 Paroxysmal atrial fibrillation (principal); Z79.01 Long term (current) use of anticoagulants
CPT/HCPCS: 36416; 85610

== ENCOUNTER → 2022-01-30 | Outpatient (CLI) | payer MEDICARE, OTHER, SELFPAY ==
[2022-01-30 13:57] VITALS: PULSE 81; PULSE 83; PULSE 85; PULSE 87; PULSE 98; O2SAT 92; O2SAT 94; O2SAT 95; O2SAT 96; O2SAT 97
--- NOTE | 2022-02-01 08:05 | PCM.PSN.6M ---
PSN 6 Minute Walk Test 6 Minute Walk Test 6 Minute Walk Test: 6 Minute Walk Test PSN:6-Minute Walk Test Start: 01/30/22 13:57 Freq: Status: Discharge Protocol: RESP.[id number] Document 01/30/22 13:57 (Rec: 01/30/22 14:00 [id number]) 6 Minute Walk Test Date Performed 01/30/22 Time Performed 13:00 Height 5 ft 8 in Weight: 250 lb 2.49 oz Weight in Pounds 250.[address]: Susan Biswas Assistive device used: None Pre-test Oxygen Delivery Method Room Air Pulse Ox (%) 96 Pulse Rate (60-100 beats/min) 85 Dyspnea Gilbert Scale (0-10) 2 Exertion Gilbert Scale (6-20) 6 1st minute Oxygen Delivery Method Room Air Pulse Ox (%) 92 Pulse Rate (60-100 beats/min) 81 2nd minute Oxygen Delivery Method Room Air Pulse Ox (%) 94 Pulse Rate (60-100 beats/min) 83 Number of Rests Taken 1 3rd minute Oxygen Delivery Method Room Air Pulse Ox (%) 96 Pulse Rate (60-100 beats/min) 87 4th minute Oxygen Delivery Method Room Air Pulse Ox (%) 95 Pulse Rate (60-100 beats/min) 98 5th minute Oxygen Delivery Method Room Air Pulse Ox (%) 95 Pulse Rate (60-100 beats/min) 85 6th minute Oxygen Delivery Method Room Air Pulse Ox (%) 97 Pulse Rate (60-100 beats/min) 85 Dyspnea Gilbert Scale (0-10) 5 Exertion Gilbert Scale (6-20) 13 Post-test Oxygen Delivery Method Room Air Pulse Ox (%) 94 Pulse Rate (60-100 beats/min) 85 Full Laps Walked 6 Partial Lap, Number of Tiles Walked 0 Total Distance Walked (ft) 354 Interpretation Interpretation: The patient ambulated 354 feet over the course of 6 minutes beginning on room air without assistive devices. Pretesting oxygen saturation was noted to be 96% on room air. With ambulation, the jatinder oxygen saturation was 92%. There was no significant exertional oxygen desaturation. Recommendations Recommendations: There is no indication for the use of supplemental oxygen at this time.
== END | disposition home or self-care (01) ==
LOC: PSN 13:04
PROVIDERS: Referring Provider Physician Assistant Medical; Visit Provider Physician Assistant Medical
DX: I27.20 Pulmonary hypertension, unspecified (principal); R06.09 Other forms of dyspnea
CPT/HCPCS: 94618

== ENCOUNTER 2022-02-05 14:02 | Outpatient (RCR) | payer MEDICARE, OTHER, SELFPAY ==
[2022-02-05 14:26] LABS: INR Fingerstick 1.6; Prothrombin Time Fingerstick 19.3 SEC (11.7-14.9)
== END 2022-02-05 18:00 | disposition home or self-care (01) ==
LOC: LAB 14:02
PROVIDERS: Referring Provider Internal Medicine Cardiovascular Disease; Visit Provider Internal Medicine Cardiovascular Disease
DX: I48.0 Paroxysmal atrial fibrillation (principal); Z79.01 Long term (current) use of anticoagulants
CPT/HCPCS: 36416; 85610

== ENCOUNTER → 2022-02-05 | Outpatient (CLI) | payer MEDICARE, OTHER, SELFPAY ==
--- NOTE | 2022-02-05 15:16 | PFTCOMP ---
COMPLETE PULMONARY FUNCTION TEST INTERPRETATION Brief HPI: Patient is a 72-year-old male, currently under the care of Susan Biswas, who presents to [facility] for complete pulmonary function tests secondary to diagnosis of dyspnea. Respiratory therapist reports good effort and reproducible results. Interpretation: Forced expiration spirometry shows no large airways obstructive ventilatory defect with an FEV1 of 52% predicted. There is no significant bronchodilator response by strict ATS criteria. Spirograms are of good quality and plateau normally. The respiratory flow volume loop shows a normal pattern. Lung volumes by body plethysmography show a decreased total lung capacity at 3.79 L, 63% predicted. All other lung volumes are reduced symmetrically. Diffusion capacity by carbon monoxide is decreased at 60% predicted. The airway resistance is normal. No previous pulmonary function tests were available for review. Impression: Moderate restrictive ventilatory defect with a symmetric reduction in diffusing capacity. Consider chest imaging if not obtained previously
== END | disposition home or self-care (01) ==
LOC: PSN 13:09
PROVIDERS: Referring Provider Physician Assistant Medical; Visit Provider Physician Assistant Medical
DX: R06.09 Other forms of dyspnea (principal); I27.20 Pulmonary hypertension, unspecified; I48.0 Paroxysmal atrial fibrillation; Z79.01 Long term (current) use of anticoagulants
CPT/HCPCS: 36416; 85610; 94060; 94726; 94729

== ENCOUNTER 2022-06-14 13:40 | Outpatient (RCR) | payer MEDICARE, OTHER, SELFPAY ==
--- NOTE | 2022-06-14 14:20 | RAD_ITS ---
INDICATION: Abnormal PFTs EXAMINATION/TECHNIQUE: X-RAY - XR Chest 2 Views COMPARISON: 01/27/2021. FINDINGS: LINES/DEVICES: Central venous access catheter on the right has been removed. LUNGS: There is complete opacification of the lower one half of the right hemithorax. Underlying mass cannot be excluded. MEDIASTINUM AND CARDIOVASCULAR STRUCTURES: Mildly tortuous descending aorta. BONES AND SOFT TISSUES: Unremarkable. RAD/Chest PA and Lateral IMPRESSION: Opacification lower one half of right hemithorax consistent with effusion and/or infiltrate, cannot exclude mass. Electronically Signed: Luis Landeros MD, FIONA at 17:20 EDT ,
[2022-06-14 14:34] LABS: Hematocrit 47.2 % (40-54); Hemoglobin 14.3 g/dL (13.0-16.5); Mean Corp Hgb Conc 30.3 g/dL (32-36); Mean Corpuscular Hgb 26.5 pg (27.0-32.0); Mean Corpuscular Volume 87.4 fL (80-94); Mean Platelet Vol. 10.4 fl (6.2-12.0); Platelet Count 270 K/mm3 (150-450); RBC Distribution Width CV 15.4 % (11.6-14.6); RBC Distribution Width SD 49.1 fl (35.1-43.9); White Blood Count 10.4 K/mm3 (4.4-11.0)
[2022-06-14 14:43] LABS: International Normalized Ratio 2.1
[2022-06-14 14:58] LABS: Protein:Creat Ratio 1082 mg/g CRE (0-200)
[2022-06-14 15:10] LABS: Vitamin D,25 Hydroxy 74.7 ng/mL
[2022-06-14 15:13] LABS: ALB/GLOB Ratio 0.9 RATIO (0.9-2.4); AST(SGOT) 14 U/L (15-37); Alanine Aminotransfer ALT/SGPT 26 U/L (16-61); Albumin, Serum 3.6 g/dL (3.2-5.0); Alkaline Phosphatase 116 U/L (45-117); Anion Gap 1 (5-15); BUN 14 mg/dL (7-18); BUN/Creat Ratio 15.1 RATIO (10-20); Calcium,Total 10.4 mg/dL (8.5-10.1); Chloride 103 mmol/L (98-107); Creatinine, Serum 0.93 mg/dL (0.70-1.30); EST Glomerular Filtration Rate 85 mL/min (>60); Est Glom Filt Rate - Afr Amer 103 mL/min (>60); Glucose 163 mg/dL (74-106); Potassium 4.5 mmol/L (3.5-5.1); Protein, Total 7.6 g/dL (6.4-8.2); Sodium Level 135 mmol/L (136-145)
== END 2022-06-17 01:33 | disposition home or self-care (01) ==
LOC: LAB 13:40
PROVIDERS: Internal Medicine Nephrology; Referring Provider Internal Medicine Cardiovascular Disease; Visit Provider Internal Medicine Cardiovascular Disease
DX: J98.4 Other disorders of lung (principal); I48.0 Paroxysmal atrial fibrillation; N18.31 Chronic kidney disease, stage 3a; D64.9 Anemia, unspecified; I12.9 Hypertensive chronic kidney disease with stage 1 through stage 4 chronic kidney disease, or unspecified chronic kidney disease; Z79.01 Long term (current) use of anticoagulants
CPT/HCPCS: 36415; 71046; 80053; 82043; 82306; 82570; 83970; 84156; 85027; 85610

== ENCOUNTER 2022-09-14 14:38 | Outpatient (RCR) | payer MEDICARE, OTHER, SELFPAY ==
[2022-09-14 14:50] LABS: INR Fingerstick 1.7; Prothrombin Time Fingerstick 19.1 SEC (11.7-14.9)
== END 2022-09-17 18:00 | disposition home or self-care (01) ==
LOC: LAB 14:38
PROVIDERS: Referring Provider Internal Medicine Cardiovascular Disease; Visit Provider Internal Medicine Cardiovascular Disease
DX: N18.31 Chronic kidney disease, stage 3a (principal); D64.9 Anemia, unspecified; I48.0 Paroxysmal atrial fibrillation; Z79.01 Long term (current) use of anticoagulants
CPT/HCPCS: 36416; 85610

== ENCOUNTER 2022-10-17 13:19 | Outpatient (RCR) | payer MEDICARE, OTHER, SELFPAY ==
[2022-10-29 09:12] LABS: INR Fingerstick 2.5; Prothrombin Time Fingerstick 27.3 SEC (11.7-14.9)
== END 2022-10-17 18:00 | disposition home or self-care (01) ==
LOC: LAB 13:19
PROVIDERS: Referring Provider Internal Medicine Cardiovascular Disease; Visit Provider Internal Medicine Cardiovascular Disease
DX: N18.31 Chronic kidney disease, stage 3a (principal); D64.9 Anemia, unspecified; I10 Essential (primary) hypertension
CPT/HCPCS: 36416; 85610

== ENCOUNTER 2022-12-24 11:13 | Outpatient (RCR) | payer MEDICARE, OTHER, SELFPAY ==
[2022-12-24 11:45] LABS: Hematocrit 43.9 % (40-54); Hemoglobin 13.5 g/dL (13.0-16.5); Mean Corp Hgb Conc 30.8 g/dL (32-36); Mean Corpuscular Hgb 27.1 pg (27.0-32.0); Mean Platelet Vol. 9.8 fl (6.2-12.0); Platelet Count 247 K/mm3 (150-450); RBC Distribution Width CV 14.6 % (11.6-14.6); RBC Distribution Width SD 46.6 fl (35.1-43.9); Red Blood Count 4.99 M/mm3 (4.6-6.2)
[2022-12-24 11:57] LABS: Protein:Creat Ratio 545 mg/g CRE (0-200)
[2022-12-24 12:01] LABS: International Normalized Ratio 2.2; Prothrombin Time (Protime)PT. 24.9 SECONDS (11.7-14.9)
[2022-12-24 12:54] LABS: Vitamin D,25 Hydroxy 83.2 ng/mL
[2022-12-24 12:58] LABS: Albumin, Serum 3.4 g/dL (3.2-5.0); BUN 18 mg/dL (7-18); Chloride 105 mmol/L (98-107); Creatinine, Serum 0.94 mg/dL (0.70-1.30); EST Glomerular Filtration Rate 83 mL/min (>60); Est Glom Filt Rate - Afr Amer 101 mL/min (>60); Glucose 103 mg/dL (74-106); Magnesium 1.9 mg/dL (1.6-2.6); Phosphorus 3.1 mg/dL (2.5-4.9); Potassium 3.8 mmol/L (3.5-5.1); Sodium Level 138 mmol/L (136-145)
[2022-12-24 14:39] LABS: PTHIN 86.2 pg/mL (18.4-80.1)
== END 2023-01-17 18:00 | disposition home or self-care (01) ==
LOC: LAB 11:13
PROVIDERS: Referring Provider Internal Medicine Cardiovascular Disease; Visit Provider Internal Medicine Cardiovascular Disease
DX: N18.31 Chronic kidney disease, stage 3a (principal); Z79.01 Long term (current) use of anticoagulants; E87.5 Hyperkalemia; D64.9 Anemia, unspecified
CPT/HCPCS: 36415; 80069; 82306; 82570; 83735; 83970; 84156; 85027; 85610

== ENCOUNTER 2023-09-10 14:53 | Outpatient (RCR) | payer MEDICARE, OTHER, SELFPAY ==
[2023-09-10 15:11] LABS: INR Fingerstick 2.8
== END 2023-09-18 18:00 | disposition home or self-care (01) ==
LOC: LAB 14:53
PROVIDERS: Referring Provider Physician Assistant Medical; Visit Provider Physician Assistant Medical
DX: I48.0 Paroxysmal atrial fibrillation (principal); Z79.01 Long term (current) use of anticoagulants
CPT/HCPCS: 36416; 85610

== ENCOUNTER → 2024-01-01 | Outpatient (CLI) | payer MEDICARE, OTHER, SELFPAY ==
[2024-01-01 17:07] LABS: Absolute Lymphocyte Count 1.06 X10^3/uL (0.83-4.51); Absolute Neutrophil Count 9.6 X10^3/uL (2.0-7.7); Basophil# 0.05 X10^3/uL; Basophil% 0.4 % (0-1); Eosinophil# 0.16 X10^3/uL; Eosinophils% 1.4 % (0-5); Hematocrit 41.3 % (40-54); Hemoglobin 12.8 g/dL (13.0-16.5); Lymphocyte # 1.06 X10^3/ul (0.83-4.51); Mean Corpuscular Hgb 27.2 pg (27.0-32.0); Mean Corpuscular Volume 87.9 fL (80-94); Mean Platelet Vol. 9.8 fl (6.2-12.0); Monocyte# 0.82 X10^3/uL; NRBC Flagged by Analyzer 0 % (0-5); Neutrophil # 9.62 X10^3/uL (2.7-7.7); Neutrophil % 81.9 % (47-70); Platelet Count 273 K/mm3 (150-450); RBC Distribution Width CV 14.2 % (11.6-14.6); RBC Distribution Width SD 45.6 fl (35.1-43.9); White Blood Count 11.7 K/mm3 (4.4-11.0)
[2024-01-01 17:28] LABS: Prothrombin Time (Protime)PT. 45.7 SECONDS (11.7-14.9)
[2024-01-01 17:33] LABS: ALB/GLOB Ratio 0.8 RATIO (0.9-2.4); AST(SGOT) 14 U/L (15-37); Alanine Aminotransfer ALT/SGPT 21 U/L (16-61); Albumin, Serum 3.7 g/dL (3.2-5.0); Alkaline Phosphatase 120 U/L (45-117); Anion Gap 7 (5-15); BUN 18 mg/dL (7-18); BUN/Creat Ratio 18.4 RATIO (10-20); Calcium,Total 10.2 mg/dL (8.5-10.1); Chloride 106 mmol/L (98-107); Creatinine, Serum 0.98 mg/dL (0.70-1.30); EST Glomerular Filtration Rate 80 mL/min (>60); Est Glom Filt Rate - Afr Amer 97 mL/min (>60); Globulin 4.6 g/dL (2.2-4.2); Glucose 120 mg/dL (74-106); Potassium 4.4 mmol/L (3.5-5.1); Protein, Total 8.3 g/dL (6.4-8.2); Sodium Level 138 mmol/L (136-145)
[2024-01-01 17:47] LABS: Vitamin D,25 Hydroxy 70.3 ng/mL
== END | disposition home or self-care (01) ==
LOC: VSLAB 15:24
PROVIDERS: PCP Nurse Practitioner Family; Visit Provider Nurse Practitioner Family
DX: E11.65 Type 2 diabetes mellitus with hyperglycemia (principal); I48.91 Unspecified atrial fibrillation; I10 Essential (primary) hypertension; E55.9 Vitamin D deficiency, unspecified
CPT/HCPCS: 36415; 80053; 82306; 84443; 85025; 85610

== ENCOUNTER 2024-01-07 10:07 | Outpatient (RCR) | payer MEDICARE, OTHER, SELFPAY ==
[2024-01-07 10:31] LABS: INR Fingerstick 1.9; Prothrombin Time Fingerstick 20.9 SEC (11.7-14.9)
== END 2024-01-18 18:00 | disposition home or self-care (01) ==
LOC: LAB 10:07
PROVIDERS: PCP Nurse Practitioner Family; Referring Provider Physician Assistant Medical; Visit Provider Physician Assistant Medical
DX: I48.0 Paroxysmal atrial fibrillation (principal); Z79.01 Long term (current) use of anticoagulants
CPT/HCPCS: 36416; 85610

== ENCOUNTER 2024-04-07 15:40 | Emergency (ER) | payer MEDICARE, OTHER, SELFPAY ==
[2024-04-07 15:45] VITALS: BP 137/89; PULSE 100; RESP 20; TEMP 36.8; O2SAT 95
[2024-04-07 15:48] VITALS: BP 137/89; PULSE 100; RESP 20; TEMP 36.8; O2SAT 94
[2024-04-07 16:11] VITALS: BMI 34.4
[2024-04-07 16:12] VITALS: O2SAT 94
[2024-04-07 16:20] LABS: Absolute Lymphocyte Count 0.96 X10^3/uL (0.83-4.51); Absolute Neutrophil Count 8.3 X10^3/uL (2.0-7.7); Basophil# 0.05 X10^3/uL; Basophil% 0.5 % (0-1); Eosinophils% 1.9 % (0-5); Hematocrit 46.9 % (40-54); Hemoglobin 14.6 g/dL (13.0-16.5); Lymphocyte # 0.96 X10^3/ul (0.83-4.51); Lymphocyte % 9.3 % (19-41); Mean Corp Hgb Conc 31.1 g/dL (32-36); Mean Corpuscular Hgb 25.4 pg (27.0-32.0); Mean Corpuscular Volume 81.6 fL (80-94); Mean Platelet Vol. 9.8 fl (6.2-12.0); Monocyte# 0.76 X10^3/uL; Monocyte% 7.4 % (0-10); NRBC Flagged by Analyzer 0 % (0-5); Neutrophil # 8.31 X10^3/uL (2.7-7.7); Neutrophil % 80.5 % (47-70); Platelet Count 227 K/mm3 (150-450); RBC Distribution Width CV 15.9 % (11.6-14.6); RBC Distribution Width SD 46.5 fl (35.1-43.9); Red Blood Count 5.75 M/mm3 (4.6-6.2); White Blood Count 10.3 K/mm3 (4.4-11.0)
[2024-04-07 16:38] LABS: Anion Gap 8 (5-15); BUN 18 mg/dL (7-18); BUN/Creat Ratio 18.5 RATIO (10-20); Calcium,Total 11.3 mg/dL (8.5-10.1); Chloride 102 mmol/L (98-107); Creatinine, Serum 0.97 mg/dL (0.70-1.30); EST Glomerular Filtration Rate 80 mL/min (>60); Est Glom Filt Rate - Afr Amer 97 mL/min (>60); Estimated Creatinine Clearance 86.17 ml/min; Glucose 87 mg/dL (74-106); Sodium Level 138 mmol/L (136-145)
[2024-04-07 16:48] VITALS: BP 117/67; PULSE 83; RESP 20; TEMP 36.8; O2SAT 87
[2024-04-07 16:54] VITALS: O2SAT 93
--- NOTE | 2024-04-07 17:53 | ED.VIS.DYS ---
HPI History of Present Illness Chief Complaint: Shortness of Breath Informant: patient Onset/Context/Timing Onset: Month(s) (2) Context: gradual Timing: Continuous Quality: Positive for Dyspnea on exertion Worsened by: Exertion Relieved by: Nothing Associated Symptoms cough; Negative for rhinorrhea, post nasal drip, ear pain, fever, sore throat, chills, sweats, clear sputum, white sputum, yellow sputum or green sputum Chest Pain: Positive for None Narrative Narrative: Patient presents with shortness of breath that has been getting worse over the past 2 months. Patient states it is gradually getting worse. Patient states it waxes and wanes. Patient states it is worse with any activity. Patient states nothing makes it better. Patient denies any sore throat or rhinorrhea. Patient admits to a cough but denies any sputum production. Patient denies any fevers or chills. Patient denies any chest pain. [facility] Medical History Cardiac murmur Chronic kidney disease (CKD) Frequent headaches Hyperlipidemia Paroxysmal atrial fibrillation Atrial fibrillation with rapid ventricular response (01/2021) Essential hypertension Severe protein-calorie malnutrition HELENA (acute kidney injury) Abrasion of cornea, right Diabetes Home Medications ?Medication ?Instructions ?Recorded ?Last Taken ?Type pravastatin 20 mg tablet 20 mg PO DAILY 01/26/21 Unknown History glimepiride 4 mg tablet 4 mg PO DAILY #60 tabs 02/07/21 Unknown Rx acetaminophen 500 mg capsule 500 mg PO Q6H PRN 11/08/21 Unknown History cyanocobalamin (vitamin B-12) 1,000 mcg PO DAILY 11/08/21 Unknown History 1,000 mcg capsule ferrous sulfate 325 mg (65 mg 325 mg PO .3 x week 11/08/21 Unknown History iron) capsule,extended release spironolactone 25 mg tablet 25 mg PO DAILY 11/08/21 Unknown History insulin glargine 100 unit/mL (3 35 unit subcut QPM 01/09/22 Unknown History mL) subcutaneous pen (Lantus Solostar U-100 Insulin) cholecalciferol (vitamin D3) 1,250 1,250 mcg PO QWEEK 03/08/22 Unknown History mcg (50,000 unit) capsule metformin 500 mg tablet 500 mg PO DAILY 09/14/22 Unknown History tamsulosin 0.4 mg capsule (Flomax) 0.4 mg PO DAILY 09/14/22 Unknown History metoprolol tartrate 50 mg tablet 50 mg PO BID #180 tabs 01/07/23 Unknown Rx warfarin 4 mg tablet 4 mg PO DAILY #180 tabs 09/13/23 Unknown Rx Allergy/AdvReac Type Severity Reaction Status Date / Time amlodipine (From Lotrel) Allergy Severe Other Verified 04/07/24 15:45 benazepril (From Lotrel) Allergy Severe Other Verified 04/07/24 15:45 Surgical History History of cataract surgery Social History Smoking Status: Former smoker ROS ROS ED Constitutional Constitutional ED: Denies chills or fever(s) Eyes Eyes: Denies blurry vision or change in vision ENT ENT ED: Denies rhinorrhea or sore throat Cardiovascular Cardiovascular: Denies chest pain or palpitations Respiratory/Chest Respiratory/Chest: Reports dyspnea; Denies cough Gastrointestinal Gastrointestinal: Denies nausea or vomiting Genitourinary Genitourinary ED: Reports urinary frequency; Denies dysuria or hematuria Musculoskeletal Musculoskeletal: Reports back pain; Denies neck pain Integumentary Denies abscess or rash Neurologic Neurologic: Reports weakness; Denies headache(s) Allergic/Immunologic Allergic/Immunologic ED: Denies mouth swelling or urticaria EXAM Physical Exam Const Vital Signs: 04/07/24 15:45 04/07/24 15:48 04/07/24 16:12 Temperature 98.2 F 98.2 F Temperature Source Oral Oral Pulse Rate 100 100 Respiratory Rate 20 H 20 H Respiratory Effort Respiratory Depth Respiratory Pattern Blood Pressure 137/89 H 137/89 H Blood Pressure Mean 105 105 Pulse Ox 95 94 94 Oxygen Delivery Method Room Air Room Air Room Air Oxygen Flow Rate (L/min) 04/07/24 16:12 04/07/24 16:13 04/07/24 16:48 Temperature 98.2 F Temperature Source Oral Pulse Rate 83 Respiratory Rate 20 H Respiratory Effort Normal Non-Labored Respiratory Depth Normal Respiratory Pattern Normal Blood Pressure 117/67 Blood Pressure Mean 83 Pulse Ox 94 87 Oxygen Delivery Method Room Air Room Air Room Air Oxygen Flow Rate (L/min) 04/07/24 16:54 04/07/24 18:00 Temperature 98.3 F Temperature Source Oral Pulse Rate 88 Respiratory Rate 19 H Respiratory Effort Respiratory Depth Respiratory Pattern Blood Pressure 146/100 H Blood Pressure Mean 115 Pulse Ox 93 95 Oxygen Delivery Method Nasal Cannula Nasal Cannula Oxygen Flow Rate (L/min) 2 2 Positive well nourished and well developed General Appearance ED: well developed and NAD HEENT Reports moist mucous membranes atraumatic Neck supple and no JVD Resp normal respiratory effort Auscultation: diminished lung sounds right lower Cardio regular rate Rhythm: abnormal rhythm irregularly irregular GI non-tender and non-distended Palpation: soft Neuro oriented x3, CN's II-XII intact bilaterally and no sensory deficits noted [place] Coma Scale: document GCS findings Spontaneous Obeys Commands Oriented 15 Sensorium / Orientation: alert Motor Exam: strength 5/5 throughout Psych mental status grossly normal MDM MDM MDM Narrative Medical decision making narrative: Differential diagnosis includes cardiac dysrhythmia, cardiac ischemia, pneumonia, pulmonary embolism, bronchitis, pneumothorax, electrolyte abnormality, and anxiety. EKG will be obtained to assess for cardiac dysrhythmia and cardiac ischemia. Chest x-ray will be obtained to assess for pneumonia and bronchitis. CBC will be obtained to assess for leukocytosis and anemia. Basic metabolic profile will be obtained to assess for electrolyte abnormality and renal function. D-dimer will be obtained to assess for pulmonary embolism. High-sensitivity troponin will be obtained to assess for cardiac ischemia. BNP will be obtained to assess for congestive heart failure. COVID-19, influenza, and RSV PCR will be obtained to assess for viral illness. Lab Data Attestation: I reviewed the patient's lab results. Lab results narrative: CBC was reviewed and was within normal limits. Basic metabolic profile was reviewed and was within normal limits. High-sensitivity troponin was reviewed and was normal at 13. D-dimer was reviewed and was 0.6. This is normal for the patient's age. COVID-19 PCR was reviewed and was negative. Influenza PCR was reviewed and was negative for influenza A and influenza B. RSV PCR was reviewed and was negative. Labs: Laboratory Results - last 24 hr 04/07/24 04/07/24 16:12 18:10 WBC 10.3 RBC 5.75 Hgb 14.6 Hct 46.9 MCV 81.6 MCH 25.4 L MCHC 31.1 L RDW Std Deviation 46.5 H RDW Coeff of Flaco 15.9 H Plt Count 227 MPV 9.8 Immature Gran % (Auto) 0.400 Neut % (Auto) 80.5 H Lymph % (Auto) 9.3 L [place] % (Auto) 7.4 Eos % (Auto) 1.9 Baso % (Auto) 0.5 Absolute Neuts (auto) 8.3 H Absolute Lymphs (auto) 0.96 Nucleated RBC % 0 D-Dimer Quant (PE/DVT) 0.60 H* Sodium 138 Potassium 4.0 Chloride 102 Carbon Dioxide 28.0 Anion Gap 8 BUN 18 Creatinine 0.97 Estim Creat Clear Calc 86.17 Est GFR (MDRD) Af Amer 97 Est GFR (MDRD) Non-Af 80 BUN/Creatinine Ratio 18.5 Glucose 87 Calcium 11.3 H Troponin I High Sens 13 Radiography Chest X-Ray - ED: 2 View, Read by ED Physician, Read by Radiologist, Cardiomegaly and Right Effusion Diagnostic Testing: Clinical Impression(s) from Imaging Studies Chest X-Ray 04/07/24 18:20 IMPRESSION: Cardiomegaly with large right pleural effusion [facility] and lateral chest x-ray was obtained. There are 2 views. On my independent interpretation, there is a large pleural effusion on the right. There is cardiomegaly noted. There is no pneumothorax. Bony thorax is normal. Radiologist also interpreted the x-rays and agrees. EKG Initial EKG: Attestation: I personally reviewed and interpreted this EKG as follows: Interpretation: Atrial Fibrillation (87) and Non-Specific ST Changes Comments: EKG was obtained. On my independent interpretation, it showed a atrial fibrillation with a rate of 87. QRS interval and QTc intervals were normal. There is right axis deviation of 123. There are nonspecific ST-T wave changes. Prior EKG tracings: available for review Prior: Unchanged (11/08/2021) Treatment and Re-Evaluation :: Patient was advised of his findings. Patient is refusing to be admitted to the hospital. Patient was advised that his breathing could get worse and that his hypoxia can get worse. Patient was advised that this could lead to serious illness and . Patient understands and will sign out AGAINST MEDICAL ADVICE. Patient was instructed to follow-up with his primary care physician in 3 to 5 days. Patient was instructed return if worse in any way. Patient understood and was agreeable with the plan. All questions were answered. Discharge Plan Triage Chief Complaint: Shortness of Breath ED Provider: Carlos Wang Dx/Rx/DC Orders Clinical Impression: Pleural effusion, right, Dyspnea on exertion, Hypoxia Instructions: ED Dyspnea, ED Pleural Effusion Prescriptions: No Action cyanocobalamin (vitamin B-12) 1,000 mcg capsule 1,000 mcg PO DAILY spironolactone 25 mg tablet 25 mg PO DAILY acetaminophen 500 mg capsule 500 mg PO Q6H PRN Lantus Solostar U-100 Insulin 100 unit/mL (3 mL) insulin pen 35 unit subcut QPM cholecalciferol (vitamin D3) 1,250 mcg (50,000 unit) capsule 1,250 mcg PO QWEEK metformin 500 mg tablet 500 mg PO DAILY tamsulosin [Flomax] 0.4 mg capsule 0.4 mg PO DAILY warfarin 4 mg tablet 4 mg PO DAILY Qty: 180 3RF Protocol: Dose Management Condition: Saturday Dose/Route: 4 mg Instruction: 1 x 4 mg tablet Condition: Saturday Dose/Route: 4 mg Instruction: 1 x 4 mg tablet Condition: Saturday Dose/Route: 4 mg Instruction: 1 x 4 mg tablet Condition: Saturday Dose/Route: 4 mg Instruction: 1 x 4 mg tablet Condition: Dose/Route: 4 mg Instruction: 1 x 4 mg tablet Condition: Saturday Dose/Route: 4 mg Instruction: 1 x 4 mg tablet Condition: Saturday Dose/Route: 4 mg Instruction: 1 x 4 mg tablet Protocol Text: Adjustment Start Date: Saturday01/07/24 INR Value: 1.9 INR Date: 01/07/24 Recheck Date: 01/21/24 Rx Instructions: 1 tablet 4 days a week and 1.5 tablets 3 days a week or as directed pravastatin 20 mg tablet 20 mg PO DAILY glimepiride 4 mg tablet 4 mg PO DAILY Qty: 60 0RF ferrous sulfate 325 mg (65 mg iron) capsule, extended release 325 mg PO .3 x week metoprolol tartrate 50 mg tablet 50 mg PO BID Qty: 180 3RF Primary Care Provider: Evelia Benítez Referrals: Evelia Benítez, [employer] [Primary Care Provider] - 3-5 Days Print Language: Peruvian Disposition Disposition: Against Medical Advice
[2024-04-07 18:00] VITALS: BP 146/100; PULSE 88; RESP 19; TEMP 36.8; O2SAT 95
--- NOTE | 2024-04-07 18:20 | RAD_ITS ---
PROCEDURE: CHEST PA AND LATERAL REASON FOR EXAM: Dyspnea TECHNIQUE: Frontal and lateral views of the chest. COMPARISON: 06/14/2022 FINDINGS: Heart size is moderately enlarged. The thoracic aorta is tortuous and calcified. Large right pleural effusion The bones are unremarkable. RAD/Chest PA and Lateral IMPRESSION: Cardiomegaly with large right pleural effusion Reading Location: [facility]
[2024-04-07 18:47] LABS: Troponin-I HS 13 pg/mL (3.0-78.0)
[2024-04-09 15:27] LABS: BNP,B-Type NATRIURETIC PEPTIDE 173.9 pg/mL (0-100)
== END 2024-04-07 19:48 | disposition left against medical advice (07) ==
PROVIDERS: Emergency Provider Emergency Medicine; PCP Nurse Practitioner Family; Visit Provider Emergency Medicine
DX: R06.00 Dyspnea, unspecified (principal); I48.0 Paroxysmal atrial fibrillation; E11.22 Type 2 diabetes mellitus with diabetic chronic kidney disease; Z79.4 Long term (current) use of insulin; J90 Pleural effusion, not elsewhere classified; N18.9 Chronic kidney disease, unspecified; Z87.891 Personal history of nicotine dependence; I12.9 Hypertensive chronic kidney disease with stage 1 through stage 4 chronic kidney disease, or unspecified chronic kidney disease; E78.5 Hyperlipidemia, unspecified; R09.02 Hypoxemia; Z79.899 Other long term (current) drug therapy; Z79.84 Long term (current) use of oral hypoglycemic drugs; Z79.01 Long term (current) use of anticoagulants
CPT/HCPCS: 71046; 80048; 83880; 84484; 85025; 85379; 87631; 93005; 94760; 99284

== ENCOUNTER 2024-04-25 16:29 | Inpatient (IN) | payer MEDICARE, OTHER, SELFPAY ==
[2024-04-25] VITALS (8 sets, daily range): BP systolic 128–180; BP diastolic 70–120; PULSE 84–114; RESP 17–20; TEMP 36.4–36.9; O2SAT 93–97; BMI 33.2; BMI 34.6
--- NOTE | 2024-04-25 16:43 | EX.ED.DYSGE1 ---
HPI History of Present Illness Chief Complaint: Hypoglycemia Detail of Chief Complaint: Low blood sugar and exertional dyspnea Informant: patient Narrative Narrative: Patient presents to the emergency department complaint low blood sugar that started 3 days ago. States he has not taken insulin in the last 3 days. His blood sugar has been dropping into the 70s. Patient also complains of exertional dyspnea. Patient was seen in the emergency department about a month ago and diagnosed with a right pleural effusion but refused admission to have thoracentesis. Patient states that his father had at that time and had a lot going on so he did not want to stay. He denies any chest pain. Denies fever or chills or sweats. He describes frequent urination. [facility] Medical History Cardiac murmur Chronic kidney disease (CKD) Frequent headaches Hyperlipidemia Paroxysmal atrial fibrillation Atrial fibrillation with rapid ventricular response (01/2021) Essential hypertension Severe protein-calorie malnutrition HELENA (acute kidney injury) Abrasion of cornea, right Diabetes Home Medications ?Medication ?Instructions ?Recorded ?Last Taken ?Type pravastatin 20 mg tablet 20 mg PO DAILY 01/26/21 Unknown History glimepiride 4 mg tablet 4 mg PO DAILY #60 tabs 02/07/21 Unknown Rx acetaminophen 500 mg capsule 500 mg PO Q6H PRN fever or pain 11/08/21 Unknown History cyanocobalamin (vitamin B-12) 1,000 mcg PO DAILY 11/08/21 Unknown History 1,000 mcg capsule ferrous sulfate 325 mg (65 mg 325 mg PO .3 x week 11/08/21 Unknown History iron) capsule,extended release spironolactone 25 mg tablet 25 mg PO DAILY 11/08/21 Unknown History insulin glargine 100 unit/mL (3 35 unit subcut QPM 01/09/22 Unknown History mL) subcutaneous pen (Lantus Solostar U-100 Insulin) cholecalciferol (vitamin D3) 1,250 1,250 mcg PO QWEEK 03/08/22 Unknown History mcg (50,000 unit) capsule metformin 500 mg tablet 500 mg PO DAILY 09/14/22 Unknown History tamsulosin 0.4 mg capsule (Flomax) 0.4 mg PO DAILY 09/14/22 Unknown History metoprolol tartrate 50 mg tablet 50 mg PO BID #180 tabs 01/07/23 Unknown Rx warfarin 4 mg tablet 4 mg PO DAILY #180 tabs 09/13/23 Unknown Rx Allergy/AdvReac Type Severity Reaction Status Date / Time amlodipine (From Lotrel) Allergy Severe Other Verified 04/25/24 16:35 benazepril (From Lotrel) Allergy Severe Other Verified 04/25/24 16:35 Surgical History History of cataract surgery Social History Smoking Status: Former smoker ROS ROS ED ROS Narrative Hypoglycemia Review of Systems ROS Unobtainable: other Constitutional Constitutional ED: Reports lethargy; Denies chills, fever(s), sweats or weight loss Eyes Eyes: Denies blurry vision, change in vision or diplopia ENT ENT ED: Denies rhinorrhea or sore throat Cardiovascular Cardiovascular: Denies chest pain, orthopnea or racing heartbeat Respiratory/Chest Respiratory/Chest: Reports cough, dyspnea and dyspnea on exertion; Denies orthopnea or sputum Gastrointestinal Gastrointestinal: Denies abdominal pain, diarrhea, nausea or vomiting Genitourinary Genitourinary ED: Denies dysuria, hematuria or urinary frequency Musculoskeletal Musculoskeletal: Denies arthralgias, back pain, myalgias or neck pain Integumentary Denies abscess, Abrasions or rash Neurologic Neurologic: Denies headache(s) or weakness Psychiatric Psychiatric: Denies anxiety, depression or suicidal thoughts Endocrine Endocrinology: Denies polydipsia, polyphagia or polyuria Hematologic/Lymphatic Hematologic/Lymphatic: Denies easy bleeding, easy bruising or lymphadenopathy Allergic/Immunologic Allergic/Immunologic ED: Denies mouth swelling, tongue swelling or urticaria EXAM Physical Exam Const Vital Signs: 04/25/24 16:30 04/25/24 16:34 04/25/24 16:57 Temperature 97.6 F L 97.6 F L Temperature Source Temporal Temporal Pulse Rate 84 87 Respiratory Rate 17 19 H Respiratory Effort Short of Breath Respiratory Pattern Tachypnea Blood Pressure 180/120 H 180/120 H Blood Pressure Mean 140 140 Pulse Ox 93 94 Oxygen Delivery Method Room Air 04/25/24 17:34 04/25/24 18:00 Temperature 97.7 F L 97.8 F Temperature Source Oral Oral Pulse Rate 104 H 104 H Respiratory Rate 18 20 H Respiratory Effort Respiratory Pattern Blood Pressure 140/105 H 142/84 H Blood Pressure Mean 116 103 Pulse Ox 93 93 Oxygen Delivery Method Room Air Room Air Positive well nourished and well developed General Appearance ED: well developed and NAD HEENT Reports TM's clear and moist mucous membranes normocephalic and atraumatic; Negative for trauma or tenderness Tympanic Membrane ED: Yes TM's clear Eyes PERRL and EOMs intact bilaterally General Eye ED: Negative for pale conjunctiva or scleral icterus Neck no lymphadenopathy, supple and no JVD General: Negative for tenderness Chest Wall inspection of chest normal and palpation of chest normal Chest: Negative for tenderness Resp normal respiratory effort and No clear to auscultation bilaterally Resp Narrative: Decreased breath sounds right lower lobe with few Rales Effort and Inspection: Negative for respiratory distress or pain with movement Auscultation: Negative for rhonchi, wheezes or diminished lung sounds Cardio regular rate, regular rhythm, S1 normal heart sound, S2 normal heart sound and no murmurs Peripheral Pulses: pulses 2+ throughout GI normal to inspection, nondistended, normoactive bowel sounds, soft to palpation, non-tender, non-distended and no masses Back/Spine no CVA tenderness and no thoracic nor lumbar tenderness Extremity normal to inspection General Extremety ED: Negative for edema General Extremity: Negative for edema Neuro oriented x3, CN's II-XII intact bilaterally, no sensory deficits noted and gait normal Sensorium / Orientation: awake, alert, oriented to person, oriented to place and oriented to time Motor Exam: strength 5/5 throughout and strength abnormal Psych mental status grossly normal Skin no rashes or lesions noted and no wounds MDM MDM MDM Narrative Medical decision making narrative: Patient presents with complaints of hypoglycemia for the last 3 days. Complains of exertional dyspnea with a slight cough. He was seen in March and refused admission at that time as he was noted to have a right pleural effusion. He had prior chest x-ray and 2023 that showed a right effusion versus consolidation versus could not rule out mass. He has had no further workup on this. IV line established. EKG obtained on arrival showed atrial fibrillation with ventricular rate of 107 bpm with no acute ST segment changes. CBC with differential shows a white count of 12.4 with hemoglobin 14.9 and platelet count of 232. Chemistries unremarkable. Troponin was elevated at 77. BT ROSTER CLERK was 849. Patient states that he has been having some intermittent chest discomfort but not necessarily exertional. Case will be discussed with hospitalist to evaluate patient for admission Lab Data Attestation: I reviewed the patient's lab results. Labs: Laboratory Results - last 24 hr 04/25/24 17:00 WBC 12.4 H RBC 5.78 Hgb 14.9 Hct 45.6 MCV 78.9 L MCH 25.8 L MCHC 32.7 RDW Std Deviation 45.1 H RDW Coeff of Flaco 16.2 H Plt Count 232 MPV 10.1 Immature Gran % (Auto) 0.300 Neut % (Auto) 78.7 H Lymph % (Auto) 10.4 L [place] % (Auto) 7.4 Eos % (Auto) 2.8 Baso % (Auto) 0.4 Absolute Neuts (auto) 9.7 H Absolute Lymphs (auto) 1.29 Nucleated RBC % 0 PT 32.7 H INR 3.1 Sodium 131 L Potassium 4.0 Chloride 96 L Carbon Dioxide 22.0 Anion Gap 13 BUN 18 Creatinine 0.99 Estim Creat Clear Calc 83.06 Est GFR (MDRD) Non-Af 80 BUN/Creatinine Ratio 18.5 Glucose 183 H Calcium 11.2 H Troponin T High Sens 77 H* NT pro BNP II 849 Radiography Diagnostic Testing: Clinical Impression(s) from Imaging Studies Chest X-Ray 04/25/24 17:10 IMPRESSION: Cardiomegaly with right basilar opacification, similar in appearance to the prior study, likely representing effusion/atelectasis. Superimposed infection can not be excluded. Reading Location: [facility] 1 view chest x-ray obtained interpreted by myself as right pleural effusion versus possible mass with effusion. Radiology in agreement. EKG Initial EKG: Attestation: I personally reviewed and interpreted this EKG as follows: Comments: Atrial fibrillation with ventricular rate of 107 bpm with no acute ST segment changes Discharge Plan Triage Chief Complaint: Hypoglycemia ED Provider: Cindy Mendez Dx/Rx/DC Orders Clinical Impression: Acute dyspnea, Elevated troponin, Non-ST elevation [place] (NSTEMI), Pleural effusion on right Prescriptions: No Action cyanocobalamin (vitamin B-12) 1,000 mcg capsule 1,000 mcg PO DAILY spironolactone 25 mg tablet 25 mg PO DAILY acetaminophen 500 mg capsule 500 mg PO Q6H PRN (Reason: fever or pain) Lansilverio Ramirezostar U-100 Insulin 100 unit/mL (3 mL) insulin pen 35 unit subcut QPM cholecalciferol (vitamin D3) 1,250 mcg (50,000 unit) capsule 1,250 mcg PO QWEEK metformin 500 mg tablet 500 mg PO DAILY tamsulosin [Flomax] 0.4 mg capsule 0.4 mg PO DAILY warfarin 4 mg tablet 4 mg PO DAILY Qty: 180 3RF Protocol: Dose Management Condition: Saturday Dose/Route: 4 mg Instruction: 1 x 4 mg tablet Condition: Saturday Dose/Route: 4 mg Instruction: 1 x 4 mg tablet Condition: Saturday Dose/Route: 4 mg Instruction: 1 x 4 mg tablet Condition: Saturday Dose/Route: 4 mg Instruction: 1 x 4 mg tablet Condition: Dose/Route: 4 mg Instruction: 1 x 4 mg tablet Condition: Saturday Dose/Route: 4 mg Instruction: 1 x 4 mg tablet Condition: Saturday Dose/Route: 4 mg Instruction: 1 x 4 mg tablet Protocol Text: Adjustment Start Date: Saturday01/07/24 INR Value: 1.9 INR Date: 01/07/24 Recheck Date: 01/21/24 Rx Instructions: 1 tablet 4 days a week and 1.5 tablets 3 days a week or as directed pravastatin 20 mg tablet 20 mg PO DAILY glimepiride 4 mg tablet 4 mg PO DAILY Qty: 60 0RF ferrous sulfate 325 mg (65 mg iron) capsule, extended release 325 mg PO .3 x week metoprolol tartrate 50 mg tablet 50 mg PO BID Qty: 180 3RF Primary Care Provider: Evelia Benítez Referrals: Evelia Benítez, ROSTER CLERK-C [Primary Care Provider] - Print Language: Senegalese Disposition Disposition: Acute Care Hospital [facility]
--- NOTE | 2024-04-25 16:49 | EKG12_ITS ---
Test Reason : Blood Pressure : */* mmHG Vent. Rate : 107 BPM Atrial Rate : * BPM P-R Int : * ms QRS Dur : 84 ms QT Int : 330 ms P-R-T Axes : * 120 18 degrees QTcB Int : 440 ms Atrial fibrillation with rapid ventricular response Right axis deviation Abnormal ECG Confirmed by Hernandez Cedillo ([id number]), web editor MARSHA STAPLETON ([id number]) on 04/27/2024 10:56:52 AM Referred By: Hubert Hastings Confirmed By: Hernandez Cedillo
[2024-04-25 17:07] LABS: Absolute Lymphocyte Count 1.29 X10^3/uL (0.83-4.51); Absolute Neutrophil Count 9.7 X10^3/uL (2.0-7.7); Basophil# 0.05 X10^3/uL; Basophil% 0.4 % (0-1); Eosinophil# 0.35 X10^3/uL; Eosinophils% 2.8 % (0-5); Hematocrit 45.6 % (40-54); Hemoglobin 14.9 g/dL (13.0-16.5); Lymphocyte # 1.29 X10^3/ul (0.83-4.51); Lymphocyte % 10.4 % (19-41); Mean Corp Hgb Conc 32.7 g/dL (32-36); Mean Corpuscular Hgb 25.8 pg (27.0-32.0); Mean Corpuscular Volume 78.9 fL (80-94); Mean Platelet Vol. 10.1 fl (6.2-12.0); Monocyte# 0.91 X10^3/uL; Monocyte% 7.4 % (0-10); NRBC Flagged by Analyzer 0 % (0-5); Neutrophil # 9.73 X10^3/uL (2.7-7.7); Neutrophil % 78.7 % (47-70); Platelet Count 232 K/mm3 (150-450); RBC Distribution Width CV 16.2 % (11.6-14.6); RBC Distribution Width SD 45.1 fl (35.1-43.9); Red Blood Count 5.78 M/mm3 (4.6-6.2); White Blood Count 12.4 K/mm3 (4.4-11.0)
--- NOTE | 2024-04-25 17:10 | RAD_ITS ---
PROCEDURE: CHEST 1 VIEW (PORTABLE) REASON FOR EXAM: Dyspnea TECHNIQUE: Frontal view of the chest. COMPARISON: Chest radiograph dated 04/07/2024 FINDINGS: Heart size is moderately enlarged. Right basilar opacification, no pneumothorax. The bones are unremarkable. RAD/Chest 1 View (Portable) IMPRESSION: Cardiomegaly with right basilar opacification, similar in appearance to the bi or study, likely representing effusion/atelectasis. Superimposed infection can not be excluded. Reading Location: [facility]
[2024-04-25 17:29] LABS: International Normalized Ratio 3.1; Prothrombin Time (Protime)PT. 32.7 SECONDS (11.7-14.9)
[2024-04-25 17:35] LABS: Troponin T High Sensitivity 77 ng/L (<=22)
[2024-04-25 17:47] LABS: Anion Gap 13 (5-15); BUN 18 mg/dL (4-19); BUN/Creat Ratio 18.5 RATIO (10-20); Calcium,Total 11.2 mg/dL (7.6-11.0); Chloride 96 mmol/L (98-108); Creatinine, Serum 0.99 mg/dL (0.70-1.20); EST Glomerular Filtration Rate 80 (>60); Estimated Creatinine Clearance 83.06 ml/min (50-250); Glucose 183 mg/dL (70-99); Pro- Brain NATRIURETIC PEPTIDE 849 pg/mL (<=900); Sodium Level 131 mmol/L (133-145)
[2024-04-25 18:30] LABS: Bacteria 0 SEEN /hpf (None Seen); Mucous, Urine 0 SEEN /hpf (<or=2+); Squamous Epithelial Cells - UA 0 SEEN /hpf (0-5); White Blood Cells 0 SEEN /hpf (0-5)
--- NOTE | 2024-04-25 18:31 | PCM.HP.STD ---
HPI - General General Date of Admission: 04/25/24 Date of Service: 04/25/24 Chief Complaint: Worsening shortness of breath with exertion and concern for hypoglycemic episodes HPI Narrative BLAYNE ABDI, is a 74 M who presented to [facility] ED on 04/25/2024 with worsening shortness of breath with exertion and concern for hypoglycemic episodes. Patient was seen in the ER here on 04/07 for similar concern. Was found on chest x-ray to have cardiomegaly with a large right-sided pleural effusion. Admission was recommended but patient opted to leave AGAINST MEDICAL ADVICE. Noted that his father had just and he was dealing with several things at home. He returned to the ED today with continued shortness of breath with exertion. He also has had reported intermittent episodes of hypoglycemia. He is on Lantus 35 units at night, glimepiride and metformin for diabetes but states that he has not taken his insulin now for several days. States that he has had some blood sugar checks in the 60s to 70s which he notes is low for him, and he had hypoglycemic symptoms with this. In the ED today patient was hypertensive to the 140s systolic and mildly tachycardic. He was breathing comfortably on room air at rest with saturations in the low to mid 90s. Chest x-ray appeared essentially the same as chest x-ray on 04/07. Labs notable for WBC count 12, sodium 131, chloride 96, calcium 11.2. BNP was in the high normal range. Initial troponin was elevated at 77, repeat pending. Notably no ischemic changes were noted on EKG. Patient is a former smoker, quit smoking back in 2005. Given all of these findings, hospitalist was contacted for admission. I saw the patient at bedside in the ED, friend was present. Patient was mildly fatigued appearing but otherwise sitting back comfortably in bed. Patient did answer questions appropriately but was very deliberate with his speech and conversation did take some time. He lives at home alone and reports good functional status at baseline. Denies any recent weight loss. Denies any fevers or chills. Denies any chest pain currently or any recent chest pain episodes. Reports taking home medications as prescribed aside from the long-acting insulin that he is held. No other acute concerns at this time. [facility] Medical History Cardiac murmur Chronic kidney disease (CKD) Frequent headaches Hyperlipidemia Paroxysmal atrial fibrillation Atrial fibrillation with rapid ventricular response (01/2021) Essential hypertension Severe protein-calorie malnutrition HELENA (acute kidney injury) Abrasion of cornea, right Diabetes Home Medications ?Medication ?Instructions ?Recorded ?Last Taken ?Type pravastatin 20 mg tablet 20 mg PO DAILY 01/26/21 Unknown History glimepiride 4 mg tablet 4 mg PO DAILY #60 tabs 02/07/21 Unknown Rx acetaminophen 500 mg capsule 500 mg PO Q6H PRN fever or pain 11/08/21 Unknown History cyanocobalamin (vitamin B-12) 1,000 mcg PO DAILY 11/08/21 Unknown History 1,000 mcg capsule ferrous sulfate 325 mg (65 mg 325 mg PO .3 x week 11/08/21 Unknown History iron) capsule,extended release spironolactone 25 mg tablet 25 mg PO DAILY 11/08/21 Unknown History insulin glargine 100 unit/mL (3 35 unit subcut QPM 01/09/22 Unknown History mL) subcutaneous pen (Lantus Solostar U-100 Insulin) cholecalciferol (vitamin D3) 1,250 1,250 mcg PO QWEEK 03/08/22 Unknown History mcg (50,000 unit) capsule metformin 500 mg tablet 500 mg PO DAILY 09/14/22 Unknown History tamsulosin 0.4 mg capsule (Flomax) 0.4 mg PO DAILY 09/14/22 Unknown History metoprolol tartrate 50 mg tablet 50 mg PO BID #180 tabs 01/07/23 Unknown Rx warfarin 4 mg tablet 4 mg PO DAILY #180 tabs 09/13/23 Unknown Rx Allergy/AdvReac Type Severity Reaction Status Date / Time amlodipine (From Lotrel) Allergy Severe Other Verified 04/25/24 16:35 benazepril (From Lotrel) Allergy Severe Other Verified 04/25/24 16:35 Surgical History History of cataract surgery Social History Smoking Status: Former smoker ROS Constitutional Constitutional: Reports fatigue; Denies chills, fever(s) or weakness Eyes Eyes: Denies change in vision Cardiovascular Cardiovascular: Reports dyspnea on exertion; Denies chest pain, edema or lightheadedness Respiratory/Chest Respiratory/Chest: Reports cough and shortness of breath with exertion; Denies productive cough, shortness of breath at rest or wheezing Gastrointestinal Gastrointestinal: Denies abdominal pain Genitourinary Genitourinary: Denies dysuria Musculoskeletal Musculoskeletal: Denies arthralgias or myalgias Vital Signs Vital Signs Vital Signs: 04/25/24 16:30 04/25/24 16:34 04/25/24 16:57 Temperature 97.6 F L 97.6 F L Temperature Source Temporal Temporal Pulse Rate 84 87 Respiratory Rate 17 19 H Respiratory Effort Short of Breath Respiratory Pattern Tachypnea Blood Pressure 180/120 H 180/120 H Blood Pressure Mean 140 140 Pulse Ox 93 94 Oxygen Delivery Method Room Air 04/25/24 17:34 04/25/24 18:00 Temperature 97.7 F L 97.8 F Temperature Source Oral Oral Pulse Rate 104 H 104 H Respiratory Rate 18 20 H Respiratory Effort Respiratory Pattern Blood Pressure 140/105 H 142/84 H Blood Pressure Mean 116 103 Pulse Ox 93 93 Oxygen Delivery Method Room Air Room Air Weight Weight: 107.955 kg Body Mass Index (BMI) 33.2 Physical Exam Const alert, oriented x3 and no apparent distress Constitutional Narrative: Elderly male, class I obesity, mildly fatigued appearing but otherwise sitting back comfortably in bed, answering questions appropriately, in no acute distress. General Appearance: cooperative and comfortable HEENT normocephalic, head/scalp atraumatic, hearing grossly normal bilaterally, nasal mucous membranes and turbinates normal and moist oral mucous membranes Eyes PERRL, EOMs intact bilaterally and conjunctivae normal Neck full ROM Chest inspection of chest normal Resp normal respiratory effort and no use of accessory muscles Resp Narrative: Breathing comfortably on room air at rest. Significantly diminished breath sounds in right lung from base up to mid lung. Otherwise fairly good breath sounds bilaterally with no wheezing noted. Cardio no murmurs and peripheral pulses 2+ throughout Cardio Narrative: A-fib, rate controlled. GI normal to inspection, nondistended, normoactive bowel sounds, soft to palpation, non-tender and non-distended Back/Spine normal ROM Extremity normal to inspection, full ROM and no pedal edema Skin no rashes or lesions noted Neuro moves all extremities and no focal motor deficits Speech: speech normal Motor Exam: strength 5/5 throughout Psych mental status grossly normal Psych Narrative: Flat affect. Results Lab / Micro Data 04/25/24 17:00 04/25/24 17:00 Labs: Laboratory Results - last 24 hr 04/25/24 17:00: WBC 12.4 H, RBC 5.78, Hgb 14.9, Hct 45.6, MCV 78.9 L, MCH 25.8 L, MCHC 32.7, RDW Std Deviation 45.1 H, RDW Coeff of Flaco 16.2 H, Plt Count 232, MPV 10.1, Immature Gran % (Auto) 0.300, Neut % (Auto) 78.7 H, Lymph % (Auto) 10.4 L, [place] % (Auto) 7.4, Eos % (Auto) 2.8, Baso % (Auto) 0.4, Absolute Neuts (auto) 9.7 H, Absolute Lymphs (auto) 1.29, Nucleated RBC % 0, PT 32.7 H, INR 3.1, Sodium 131 L, Potassium 4.0, Chloride 96 L, Carbon Dioxide 22.0, Anion Gap 13, BUN 18, Creatinine 0.99, Estim Creat Clear Calc 83.06, Est GFR (MDRD) Non-Af 80, BUN/Creatinine Ratio 18.5, Glucose 183 H, Calcium 11.2 H, Troponin T High Sens 77 H*, NT pro BNP II 849 Imaging Radiology Impression Chest X-Ray 04/25/24 17:10 IMPRESSION: Cardiomegaly with right basilar opacification, similar in appearance to the prior study, likely representing effusion/atelectasis. Superimposed infection can not be excluded. Reading Location: [facility] Assessment & Plan Assessment/Plan (1) Pleural effusion on right: PLAN: Plan Patient is a 74-year-old male who presented [facility] ED on 04/25/2024 with worsening shortness of breath on exertion and concern for hypoglycemic episodes. 1. Exertional dyspnea presumed secondary to large right-sided pleural effusion ? Admit under patient status to PCU. Chest x-ray on admit showed large right-sided pleural effusion that was stable from recent chest x-ray from 04/07. Unclear etiology for effusion but cannot rule out malignancy in setting of smoking history. CT chest without contrast ordered for further evaluation. Radiology consulted for diagnostic and therapeutic thoracentesis. Given history of pulmonary hypertension as noted below, will order echocardiogram as well. 2. Type 2 diabetes mellitus with reported episodes of hypoglycemia ?Home regimen of Lantus 35 units at night, glimepiride and metformin. Patient reports episodes of hypoglycemia with blood sugars to the 60s and 70s over the past few days and notably has not been taking his home Lantus. He has been taking the glimepiride. Does report fairly poor p.o. intake over the past several days. Blood sugar 183 in the ED. Will order Accu-Cheks and sliding scale insulin with meals as needed while here. 3. Persistent A-fib on Coumadin ? In rate controlled A-fib on admit. INR 3.1. Continue home warfarin and Lopressor. 4. Mild hyponatremia ? Sodium 131, chloride 96 on admit. Suspect due to poor p.o. intake recently. Will give 1 L of normal saline over several hours on admit. Follow-up a.m. BMP. 5. Elevated troponin ? Troponin 77, repeat pending. No ischemic EKG changes noted and no chest pain reported. Suspect secondary to demand ischemia. Follow-up repeat troponin. 6. Mild hypercalcemia ? Calcium 11.2 on admit. Notably was 11.3 on 04/07. PTH ordered. Pending CT chest, could consider ordering PTHrP as well to further evaluate for possible hypercalcemia of malignancy. Follow-up a.m. calcium level. 7. Mild acute debility ? PT/OT/case management consulted. Chronic medical conditions: ? Class I obesity: BMI 34 on admit. Complicates hospital course, care and prognosis. ? Hypertension: Hypertensive to the 140s on admit. Continue home spironolactone and Lopressor. ? Hyperlipidemia: Continue home statin. ? Pulmonary hypertension with restrictive airway disease: Previously followed with pulmonology here. Not on home oxygen. Last echo in 11/2021 showed EF 65% with apparent mild pulmonary hypertension. Echo in 2020 showed apparent severe pulmonary hypertension. Repeat echo ordered as above. ? BPH with obstructive symptoms: Continue home Flomax. DVT prophylaxis: Not indicated, on warfarin CODE STATUS: Full code, verified Expected disposition: TBD Total clinical time spent by myself addressing the patient's medical issues, reviewing all the data, and collaborating with patient's care team: 75 minutes. Charges/Coding Visit Charges Inpatient E&M: 15641 Init Hosp L3
[2024-04-25 18:39] LABS: Color, Urine Yellow (Yellow); Glucose, Dipstick Normal (Normal); Ketone-Dipstick Negative (Negative); Leukocyte Esterase-Dipstick Negative /ul (Negative); Nitrite-Dipstick Negative (Negative); Occult Blood-Urine 10 /ul (Negative); Protein-Dipstick 30 mg/dl (Negative); Specific Gravity, Urine 1.015 (1.002-1.030); Urine Bilirubin Dipstick Negative (Negative); Urine Clarity Clear (Clear); Urine Urobilinogen Normal (Normal)
[2024-04-25 18:48] LABS: Red Blood Cells-Urine 0 SEEN /hpf (0-5)
--- NOTE | 2024-04-25 18:59 | CT_ITS ---
PROCEDURE: CHEST WITHOUT CONTRAST REASON FOR EXAM: Right pleural effusion TECHNIQUE: Chest CT without contrast. COMPARISON: Chest radiograph obtained earlier today. FINDINGS: Hardware: None. Lymph nodes: Prominent mediastinal lymph nodes Heart and Vasculature: Normal heart size. No pericardial effusion. Thoracic aorta and pulmonary arteries have normal contours; noncontrast technique limits evaluation. Coronary Artery Calcifications: Present Lungs and Airways: Compressive atelectasis of the right middle and right lower lobe. Pleura: Large right pleural effusion. No pneumothorax. Upper Abdomen: Visualized portions of the upper abdominal viscera are unremarkable. Bones: Degenerative changes of the thoracic spine. CT/Chest without Contrast IMPRESSION: Large right pleural effusion with compressive atelectasis. One or more dose reduction techniques were used (e.g., Automated exposure contr ol, adjustment of the mA and/or kV according to patient size, use of iterative reconstruction technique). Reading [facility]
--- NOTE | 2024-04-25 19:53 | ECHOD_ITS ---
Reason For Study Reason For Study: CHF Procedure This was a 2D Doppler, Color Flow transthoracic echocardiogram. The study was technically difficult. Definity deferred due to increased pulmonary pressure. Exam performed portable in patient room. Left Ventricle Normal LV size. The estimated ejection fraction is 70 %. Unable to assess diastolic dysfunction. No regional wall motion abnormalities noted. Right Ventricle Moderately dilated right ventricle. Normal systolic function. Atria There is mild biatrial dilatation. No doppler evidence for ASD. Mitral Valve There is moderate mitral annular calcification. There is no mitral valve stenosis. Trivial mitral valve insufficiency. Tricuspid Valve There is no tricuspid stenosis. Trivial tricuspid valve insufficiency. Pulmonary artery systolic pressure is 90 mmHg. Severe pulmonary hypertension. Aortic Valve Moderate diffuse aortic valve thickening. Moderate aortic stenosis. No aortic valve insufficiency. Pulmonic Valve There is no pulmonic valvular stenosis. No pulmonic valve insufficiency. Great Vessels Normal sized aortic root. Pericardium/Pleural No pericardial effusion. MMode/2D Measurements & Calculations LVIDd: 3.7 cm IVSd: 1.3 cm LVOT diam: 2.0 cm LVIDs: 2.4 cm LVPWd: 1.4 cm LVOT area: 3.1 cm2 RVDd: 3.9 cm FS: 35.3 % Ao root diam: 3.5 cm LAV(MOD-bp): 67.2 ml LVAd ap4: 22.9 cm2 LAV(MOD-bp) Indexed: 30.2 ml/m2 LVLd ap4: 7.9 cm LAV(MOD-sp2): 61.6 ml EDV(MOD-sp4): 56.6 ml LAV(MOD-sp4): 67.0 ml EDV(sp4-el): 56.6 ml LVAs ap4: 12.6 cm2 LVLs ap4: 6.8 cm ESV(MOD-sp4): 21.9 ml ESV(sp4-el): 19.9 ml EF(MOD-sp4): 61.4 % EF(sp4-el): 64.8 % SV(MOD-sp4): 34.7 ml SV(sp4-el): 36.6 ml LA A4 area: 22.8 cm2 SI(MOD-sp4): 15.6 ml/m2 RA A4 area: 24.3 cm2 TAPSE: 2.0 cm Doppler Measurements & Calculations MV E max shelia: 111.3 cm/sec Ao V2 max: 296.4 cm/sec LV V1 max: 86.9 cm/sec Ao max P.2 mmHg LV V1 max P.1 mmHg Ao V2 mean: 205.7 cm/sec LV V1 mean P.7 mmHg Ao mean P.1 mmHg LV V1 mean: 61.0 cm/sec Ao V2 VTI: 51.6 cm LV V1 VTI: 16.1 cm AV (velocity ratio): 0.31 GEORGETTE(I,D): 0.96 cm2 GEORGETTE(V,D): 0.90 cm2 SV(LVOT): 49.4 ml PA V2 max: 81.9 cm/sec TR max shelia: 456.4 cm/sec TR max P.3 mmHg ECHO/Echo Complete Interpretation Summary The estimated ejection fraction is 70 %. Moderately dilated right ventricle. There is mild biatrial dilatation. Trivial mitral valve insufficiency. Severe pulmonary hypertension. Moderate aortic stenosis. Ordering Physician: Hubert Hastings Referring Physician: CRISTEL GIL Performed By: Holly Ray RDCS
[2024-04-25 20:16] LABS: AST(SGOT) 21 U/L (<=37); Alanine Aminotransfer ALT/SGPT 18 U/L (<=46); Alkaline Phosphatase 131 U/L (40-129); Bilirubin, Direct 0.75 mg/dL (0.00-0.30); Globulin 3.9 g/dL (2.2-4.2); LDH 149 U/L (87-241); Protein, Total 7.9 g/dL (5.9-8.4)
[2024-04-25 20:44] LABS: Troponin T High Sens 2 HR 71 ng/L (<=22)
[2024-04-25] MEDS: Metoprolol Tartrate 50 MG Tablet PO (20:50)
[2024-04-25] MEDS: Insulin Lispro 100 UNIT/ML INSULN.PEN SC (20:50)
[2024-04-25] MEDS: 0.9% Normal Saline (1000mL) 1,000 ML 125 ML IV (20:50)
[2024-04-25 22:27] LABS: Bedside Glucose 177 mg/dL (74-106)
[2024-04-25 22:32] LABS: PTHIN 47 pg/mL (11-61)
[2024-04-25 22:48] LABS: Troponin T High Sens 4 HR 76 ng/L (<=22)
[2024-04-26 03:00] VITALS: BP 114/83; PULSE 73; RESP 18; TEMP 36.4; O2SAT 94
[2024-04-26] MEDS: Insulin Lispro 100 UNIT/ML INSULN.PEN SC ×4 (06:27→21:06)
[2024-04-26 06:49] LABS: Bedside Glucose 168 mg/dL (74-106)
[2024-04-26 07:00] VITALS: O2SAT 93
--- NOTE | 2024-04-26 08:14 | PN.HOSP_ITS ---
Reason for Visit Reason for Visit: Diagnoses Pleural effusion, not elsewhere classified (04/25/24) Objective Data Objective Data Vital Signs: Vital Signs Temp Pulse Resp BP Pulse Ox O2 Del Method 97.6 F L 73 18 114/83 H 94 Room Air 04/26/24 03:00 04/26/24 03:00 04/26/24 03:00 04/26/24 03:00 04/26/24 03:00 04/26/24 03:00 Oxygen Delivery Method Room Air Weight: 227 lb 15.327 oz Body Mass Index (BMI) 34.6 Intake & Output: Intake and Output for Last 24 Hours 04/24/24 04/25/24 04/27/24 23:59 23:59 00:59 Intake Total 906.25 / 906.25 Balance 906.25 / 906.25 Lab / Micro Data 04/26/24 07:33 04/26/24 07:33 Labs: Laboratory Results - last 24 hr 04/25/24 17:00: WBC 12.4 H, RBC 5.78, Hgb 14.9, Hct 45.6, MCV 78.9 L, MCH 25.8 L , MCHC 32.7, RDW Std Deviation 45.1 H, RDW Coeff of Flaco 16.2 H, Plt Count 232, MPV 10.1, Immature Gran % (Auto) 0.300, Neut % (Auto) 78.7 H, Lymph % (Auto) 10.4 L, [place] % (Auto) 7.4, Eos % (Auto) 2.8, Baso % (Auto) 0.4, Absolute Neuts (auto) 9.7 H, Absolute Lymphs (auto) 1.29, Nucleated RBC % 0, PT 32.7 H, INR 3.1, Sodium 131 L, Potassium 4.0, Chloride 96 L, Carbon Dioxide 22.0, Anion Gap 13, BUN 18, Creatinine 0.99, Estim Creat Clear Calc 83.06, Est GFR (MDRD) Non-Af 80, BUN/Creatinine Ratio 18.5, Glucose 183 H, Calcium 11.2 H, Troponin T High Sens 77 H*, NT pro BNP II 849, PTH Intact 47 04/25/24 18:15: Urine Color Yellow, Urine Clarity Clear, Urine pH 6.0, Ur Specific [place] 1.015, Urine Protein 30 H, Urine Glucose (UA) Normal, Urine Ketones Negative, Urine Occult Blood 10 H, Urine Nitrite Negative, Urine Bilirubin Negative, Urine Urobilinogen Normal, Ur Leukocyte Esterase Negative, Urine RBC 0 SEEN, Urine WBC 0 SEEN, Ur Squamous Epith Cells 0 SEEN, Urine Bacteria 0 SEEN, Urine Mucus 0 SEEN 04/25/24 19:07: Total Bilirubin 1.40 H, Direct Bilirubin 0.75 H, AST 21, ALT 18, Alkaline Phosphatase 131 H, Lactate Dehydrogenase 149, Troponin T Hi Sens 2 Hr 71 H*, Total Protein 7.9, Albumin 4.0, Globulin 3.9 04/25/24 20:40: POC Glucose 177 H 04/25/24 21:11: Troponin T Hi Sens 4Hr 76 H* 04/26/24 06:26: POC Glucose 168 H Radiography Diagnostic Testing: Radiology Impression Chest X-Ray 04/25/24 17:10 IMPRESSION: Cardiomegaly with right basilar opacification, similar in appearance to the prior study, likely representing effusion/atelectasis. Superimposed infection can not be excluded. Reading Location: [facility] Chest CT 04/25/24 18:59 IMPRESSION: Large right pleural effusion with compressive atelectasis. One or more dose reduction techniques were used (e.g., Automated exposure control, adjustment of the mA and/or kV according to patient size, use of iterative reconstruction technique). Reading Location: [facility] Physical Exam Narrative Seen and examined Patient seems mild short of breath. Mild leg swelling. Denies chest pain. Physical exam General: Alert, Oriented x3, Cooperative HEENT: Atraumatic, PERRLA, EOMI, Normocephalic Oral: No Gingival or Mucosal Lesions/ Ulcerations Neck: Supple, No JVD, Negative Carotid Bruits Chest wall/Lungs: Air entry diminished in right lung, large pleural effusion with systolic dullness. Cardiovascular: Regular rhythm, Normal S1, Normal S2, no murmur gallop or rub. Abdomen: Bowel Sounds Present, Soft, Non Tender, Non-Distended : No dysuria. No renal angle tenderness. No suprapubic tenderness. Extremities: Mild 1-2+ pedal/lower leg edema, Capillary Refill Less than 3 Seconds Skin: No rashes, No breakdown Musculoskeletal: No Tenderness to Palpation of Joints or Extremities Neurological: Cranial nerves II-XII grossly intact, DTR 2+/4. No acute focal neurological deficit. Psych/Mental Status: Flat affect. Assessment & Plan Assessment/Plan (1) Pleural effusion on right: PLAN: Plan Patient is a 74-year-old male who presented [facility] ED on 04/25/2024 with worsening shortness of breath on exertion and concern for hypoglycemic episodes. 1. Exertional dyspnea presumed secondary to large right-sided pleural effusion possible due to chronic heart failure although exact type and classification unclear. ? Admit under patient status to PCU. Chest x-ray on admit showed large right- sided pleural effusion that was stable from recent chest x-ray from 04/07. Unclear etiology for effusion but cannot rule out malignancy in setting of smoking history. CT chest without contrast showed similar right large pleural effusion with compressive atelectasis. Ultrasound-guided diagnostic and therapeutic thoracentesis. Given history of pulmonary hypertension as noted below, will order echocardiogram as well. 2. Type 2 diabetes mellitus with reported episodes of hypoglycemia ?Home regimen of Lantus 35 units at night, glimepiride and metformin. Patient reports episodes of hypoglycemia with blood sugars to the 60s and 70s over the past few days and notably has not been taking his home Lantus. He has been taking the glimepiride. Does report fairly poor p.o. intake over the past several days. Blood sugar 183 in the ED. 04/26: Glucose in BMP 183. Ranging about 1 77-208. A1c 7.0% Accu-Chek before meals and at bedtime with Humalog sliding scale coverage and hypoglycemia protocol. 3. Persistent A-fib on Coumadin ? In rate controlled A-fib on admit. INR 3.1. 04/26: INR today 3.4. Hold warfarin. Continue Lopressor continue home warfarin and Lopressor. 4. Mild hyponatremia ? Sodium 131, chloride 96 on admit. Suspect due to poor p.o. intake recently. Will give 1 L of normal saline over several hours on admit. Follow-up a.m. BMP. 04/26: Serum sodium 133, potassium 4.2. Continue oral intake. Will not give any further IV fluid because of right large pleural effusion and patient on 2 L of oxygen. 5. Elevated troponin ? Troponin 77, repeat pending. No ischemic EKG changes noted and no chest pain reported. Suspect secondary to demand ischemia. Follow-up repeat troponin. 04/26: Serial troponins flat or intermittent 77, 76, troponin, and [place] less than 6 therefore ACS ruled out. Does not need further. 6. Mild hypercalcemia ? Calcium 11.2 on admit. Notably was 11.3 on 04/07. PTH ordered 04/26: Repeat calcium 10.8. PTH 47. 7. Mild acute debility ? PT/OT/case management consulted. Chronic medical conditions: ? Class I obesity: BMI 34 on admit. Complicates hospital course, care and prognosis. ? Hypertension: Hypertensive to the 140s on admit. Continue home spironolactone and Lopressor. ? Hyperlipidemia: Continue home statin. ? Pulmonary hypertension with restrictive airway disease: Previously followed with pulmonology here. Not on home oxygen. Last echo in 11/2021 showed EF 65% with apparent mild pulmonary hypertension. Echo in 2020 showed apparent severe pulmonary hypertension. Repeat echo ordered as above. ? BPH with obstructive symptoms: Continue home Flomax. DVT prophylaxis: Not indicated, on warfarin CODE STATUS: Full code, verified Laboratory Results 04/25/24 17:00: WBC 12.4 H, RBC 5.78, Hgb 14.9, Hct 45.6, MCV 78.9 L, MCH 25.8 L , MCHC 32.7, RDW Std Deviation 45.1 H, RDW Coeff of Flaco 16.2 H, Plt Count 232, MPV 10.1, Immature Gran % (Auto) 0.300, Neut % (Auto) 78.7 H, Lymph % (Auto) 10.4 L, [place] % (Auto) 7.4, Eos % (Auto) 2.8, Baso % (Auto) 0.4, Absolute Neuts (auto) 9.7 H, Absolute Lymphs (auto) 1.29, Nucleated RBC % 0, PT 32.7 H, INR 3.1, Sodium 131 L, Potassium 4.0, Chloride 96 L, Carbon Dioxide 22.0, Anion Gap 13, BUN 18, Creatinine 0.99, Estim Creat Clear Calc 83.06, Est GFR (MDRD) Non-Af 80, BUN/Creatinine Ratio 18.5, Glucose 183 H, Calcium 11.2 H, Troponin T High Sens 77 H*, NT pro BNP II 849, PTH Intact 47 04/25/24 18:15: Urine Color Yellow, Urine Clarity Clear, Urine pH 6.0, Ur Specific [place] 1.015, Urine Protein 30 H, Urine Glucose (UA) Normal, Urine Ketones Negative, Urine Occult Blood 10 H, Urine Nitrite Negative, Urine Bilirubin Negative, Urine Urobilinogen Normal, Ur Leukocyte Esterase Negative, Urine RBC 0 SEEN, Urine WBC 0 SEEN, Ur Squamous Epith Cells 0 SEEN, Urine Bacteria 0 SEEN, Urine Mucus 0 SEEN 04/25/24 19:07: Total Bilirubin 1.40 H, Direct Bilirubin 0.75 H, AST 21, ALT 18, Alkaline Phosphatase 131 H, Lactate Dehydrogenase 149, Troponin T Hi Sens 2 Hr 71 H*, Total Protein 7.9, Albumin 4.0, Globulin 3.9 04/25/24 20:40: POC Glucose 177 H 04/25/24 21:11: Troponin T Hi Sens 4Hr 76 H* 04/26/24 06:26: POC Glucose 168 H 04/26/24 07:33: WBC 10.4, RBC 5.66, Hgb 14.6, Hct 45.0, MCV 79.5 L, MCH 25.8 L, MCHC 32.4, RDW Std Deviation 46.0 H, RDW Coeff of [place]aco 16.3 H, Plt Count 241, MPV 10.1, PT 34.7 H, INR 3.4, Sodium 133, Potassium 4.2, Chloride 98, Carbon Dioxide 22.8, Anion Gap 12, BUN 18, Creatinine 0.98, Estim Creat Clear Calc 78.24, Est GFR (MDRD) Non-Af 82, BUN/Creatinine Ratio 18.3, Glucose 158 H, Hemoglobin A1c 7.0, Calcium 10.8 04/26/24 12:23: POC Glucose 208 H Charges/Coding Visit Charges Inpatient E&M: 18763 Subs Hosp L2
[2024-04-26 08:21] LABS: Hemoglobin 14.6 g/dL (13.0-16.5); Mean Corp Hgb Conc 32.4 g/dL (32-36); Mean Corpuscular Hgb 25.8 pg (27.0-32.0); Mean Corpuscular Volume 79.5 fL (80-94); Mean Platelet Vol. 10.1 fl (6.2-12.0); Platelet Count 241 K/mm3 (150-450); RBC Distribution Width CV 16.3 % (11.6-14.6); Red Blood Count 5.66 M/mm3 (4.6-6.2); White Blood Count 10.4 K/mm3 (4.4-11.0)
[2024-04-26 08:25] VITALS: BP 104/71; PULSE 82; RESP 18; TEMP 36.6; O2SAT 96
[2024-04-26 08:38] LABS: International Normalized Ratio 3.4; Prothrombin Time (Protime)PT. 34.7 SECONDS (11.7-14.9)
[2024-04-26 09:20] LABS: Anion Gap 12 (5-15); BUN 18 mg/dL (4-19); BUN/Creat Ratio 18.3 RATIO (10-20); Calcium,Total 10.8 mg/dL (7.6-11.0); Carbon Dioxide 22.8 mmol/L (21.0-32.0); Chloride 98 mmol/L (98-108); Creatinine, Serum 0.98 mg/dL (0.70-1.20); EST Glomerular Filtration Rate 82 (>60); Estimated Creatinine Clearance 78.24 ml/min (50-250); Glucose 158 mg/dL (70-99); Potassium 4.2 mmol/L (3.3-5.1); Sodium Level 133 mmol/L (133-145)
[2024-04-26] MEDS: Glycerin/Hypromellose/PEG400 15 ml Bottle 1 DRP EACH EYE ×3 (11:04→21:07)
[2024-04-26] MEDS: 0.9% Saline Lock 10 ML Syringe IV (11:05)
[2024-04-26 11:06] VITALS: BP 112/74; PULSE 77
[2024-04-26] MEDS: Metoprolol Tartrate 50 MG Tablet PO (11:06)
[2024-04-26] MEDS: Tamsulosin HCl 0.4 MG Capsule PO (11:06)
[2024-04-26] MEDS: Pravastatin 20 MG Tablet PO (11:08)
[2024-04-26] MEDS: Cyanocobalamin 500 MCG Tablet 1000 MCG PO (11:08)
[2024-04-26] MEDS: Spironolactone 25 MG Tablet PO (11:08)
[2024-04-26 12:40] LABS: Bedside Glucose 208 mg/dL (74-106)
[2024-04-26 16:42] VITALS: BP 91/65; PULSE 71; RESP 18; TEMP 36.4; O2SAT 92
[2024-04-26 17:13] LABS: Bedside Glucose 217 mg/dL (74-106)
[2024-04-26 21:00] VITALS: BP 90/62; PULSE 68; RESP 18; TEMP 36.2; O2SAT 94
[2024-04-26 23:20] LABS: Bedside Glucose 200 mg/dL (74-106)
[2024-04-27 03:00] VITALS: BP 123/64; PULSE 71; RESP 18; TEMP 36.1; O2SAT 96
[2024-04-27] MEDS: Glycerin/Hypromellose/PEG400 15 ml Bottle 1 DRP EACH EYE ×3 (06:36→22:58)
[2024-04-27] MEDS: Insulin Lispro 100 UNIT/ML INSULN.PEN SC ×4 (06:38→23:08)
[2024-04-27 06:56] LABS: Absolute Lymphocyte Count 0.96 X10^3/uL (0.83-4.51); Absolute Neutrophil Count 7.6 X10^3/uL (2.0-7.7); Basophil# 0.05 X10^3/uL; Basophil% 0.5 % (0-1); Eosinophil# 0.23 X10^3/uL; Eosinophils% 2.4 % (0-5); Hematocrit 45.3 % (40-54); Hemoglobin 14.2 g/dL (13.0-16.5); Lymphocyte # 0.96 X10^3/ul (0.83-4.51); Mean Corp Hgb Conc 31.3 g/dL (32-36); Mean Corpuscular Hgb 25.4 pg (27.0-32.0); Mean Platelet Vol. 10.5 fl (6.2-12.0); Monocyte% 7.3 % (0-10); NRBC Flagged by Analyzer 0 % (0-5); Neutrophil # 7.62 X10^3/uL (2.7-7.7); Neutrophil % 79.2 % (47-70); Platelet Count 235 K/mm3 (150-450); RBC Distribution Width CV 16.5 % (11.6-14.6); RBC Distribution Width SD 47.3 fl (35.1-43.9); Red Blood Count 5.59 M/mm3 (4.6-6.2); White Blood Count 9.6 K/mm3 (4.4-11.0)
[2024-04-27 06:59] LABS: Bedside Glucose 169 mg/dL (74-106)
[2024-04-27 08:01] VITALS: PULSE 80; RESP 18
[2024-04-27 08:06] VITALS: BP 121/70; PULSE 80; RESP 18; TEMP 36.4; O2SAT 94
[2024-04-27 08:32] LABS: International Normalized Ratio 2.7; Partial Thromboplast Time 35.5 Seconds (24.1-36.2); Prothrombin Time (Protime)PT. 29.6 SECONDS (11.7-14.9)
[2024-04-27] MEDS: Ferrous Sulfate 325 MG Tablet PO (09:26)
[2024-04-27] MEDS: Spironolactone 25 MG Tablet PO (09:26)
[2024-04-27 09:27] VITALS: PULSE 80
[2024-04-27] MEDS: Cyanocobalamin 500 MCG Tablet 1000 MCG PO (09:27)
[2024-04-27] MEDS: Tamsulosin HCl 0.4 MG Capsule PO (09:27)
[2024-04-27] MEDS: Metoprolol Tartrate 50 MG Tablet PO ×2 (09:27→22:58)
[2024-04-27] MEDS: Pravastatin 20 MG Tablet PO (09:27)
--- NOTE | 2024-04-27 13:33 | CASEMGMT ---
STEVE RIDLEY Assessment: Face to Face with pt for initial transition planning/care coordination assessment. STEVE RIDLEY introduced self and role at [facility], pt voices understanding and consents to assessment. Pt is A&O x4 and answers all questions appropriately at this time. Pt sitting up in chair in no distress. Care providers, pharmacy, and demographics verified/updated. Strata: 3 Admitting Dx: R Pleural effusion with dyspnea exertion PCP: Jeyson Specialists: Triston, Pulmonology; FLASH Preferred Pharmacy: [facility] Insurance: [facility], c[place]yze Prescription Benefit: yes LNOK: Other Living Arrangements: Pt lives alone in a multi-level home with 7 steps to enter in. ADLs: Pt I at baseline. Transportation: Pt sister provides transportation. DME: Rollator, walker, cane HHC/SNF: Previously at the [facility], pt states I never want to go back there again. STEVE RIDLEY discussed possible O2 needs at time of DC. Provided list of DME providers, pt chose [facility] as provider of choice. Pt states no concerns with going home at time of dc. Pt denies wanting any HHC services, states he does not need it and his friends come and help him at home. Pt states no further concerns/needs. CM to follow. Advised pt to ask CM if any further question/concerns/needs arise, voices understanding. Pt Goal: Home Plan: Home, follow for O2 needs. Follow therapy for recommendations. Magdy WILSON CM
--- NOTE | 2024-04-27 13:41 | NURSING ---
aquamyphytin not on unit for pt administration
[2024-04-27] MEDS: 0.9% Normal Saline (100mL Bag) 100 ML 15 ML IV (14:20)
[2024-04-27] MEDS: Phytonadione (Vit K) 10 MG in 0.9% Normal Saline (50mL Bag) 50 ML 150 MG IV (14:20)
[2024-04-27 14:47] LABS: Anion Gap 13 (5-15); BUN 20 mg/dL (4-19); BUN/Creat Ratio 20.7 RATIO (10-20); Calcium,Total 10.7 mg/dL (7.6-11.0); Carbon Dioxide 24.3 mmol/L (21.0-32.0); Chloride 102 mmol/L (98-108); Creatinine, Serum 0.97 mg/dL (0.70-1.20); EST Glomerular Filtration Rate 83 (>60); Estimated Creatinine Clearance 79.05 ml/min (50-250); Glucose 153 mg/dL (70-99); LDH 238 U/L (87-241); Potassium 4.1 mmol/L (3.3-5.1); Protein, Total 7.5 g/dL (5.9-8.4); Sodium Level 139 mmol/L (133-145)
[2024-04-27 16:53] LABS: Bedside Glucose 194 mg/dL (74-106)
[2024-04-27 17:22] LABS: Bedside Glucose 174 mg/dL (74-106)
--- NOTE | 2024-04-27 19:45 | PCM.PN.HOSP ---
Reason for Visit Reason for Visit: Diagnoses Pleural effusion, not elsewhere classified (04/25/24) Subjective Subjective Patient was seen and examined today, his INR today was 2.7. Patient would like to undergo a right sided thoracentesis while in the hospital, I have elected to give him IV vitamin K today and recheck his INR tonight and tomorrow morning. Objective Data Objective Data Vital Signs: Vital Signs Temp Pulse Resp BP Pulse Ox O2 Del Method O2 Flow Rate 97.5 F L 80 18 121/70 H 94 Nasal Cannula 2 04/27/24 08:06 04/27/24 09:27 04/27/24 08:06 04/27/24 08:06 04/27/24 08:06 04/27/24 08:06 04/27/24 15:09 Oxygen Flow Rate (L/min) 2 Oxygen Delivery Method Nasal Cannula Weight: 103.4 kg Body Mass Index (BMI) 34.6 Intake & Output: Intake and Output for Last 24 Hours 04/25/24 04/27/24 04/27/24 23:59 00:59 23:59 Intake Total 1386.25 / 1386.25 250 / 250 Balance 1386.25 / 1386.25 250 / 250 Lab / Micro Data 04/28/24 04:54 04/28/24 04:54 Labs: Laboratory Results - last 24 hr 04/26/24 21:05: POC Glucose 200 H 04/27/24 05:39: WBC 9.6, RBC 5.59, Hgb 14.2, Hct 45.3, MCV 81.0, MCH 25.4 L, MCHC 31.3 L, RDW Std Deviation 47.3 H, RDW Coeff of Flaco 16.5 H, Plt Count 235, MPV 10.5, Immature Gran % (Auto) 0.600, Neut % (Auto) 79.2 H, Lymph % (Auto) 10.0 L, [place] % (Auto) 7.3, Eos % (Auto) 2.4, Baso % (Auto) 0.5, Absolute Neuts (auto) 7.6, Absolute Lymphs (auto) 0.96, Nucleated RBC % 0, PT 29.6 H, INR 2.7, APTT 35.5, Sodium 139, Potassium 4.1, Chloride 102, Carbon Dioxide 24.3, Anion Gap 13, BUN 20 H, Creatinine 0.97, Estim Creat Clear Calc 79.05, Est GFR (MDRD) Non-Af 83, BUN/Creatinine Ratio 20.7 H, Glucose 153 H, Calcium 10.7, Lactate Dehydrogenase 238, Total Protein 7.5 04/27/24 06:35: POC Glucose 169 H 04/27/24 11:11: POC Glucose 194 H 04/27/24 17:02: POC Glucose 174 H Radiography Diagnostic Testing: Radiology Impression Echocardiogram 04/25/24 19:53 Interpretation Summary The estimated ejection fraction is 70 %. Moderately dilated right ventricle. There is mild biatrial dilatation. Trivial mitral valve insufficiency. Severe pulmonary hypertension. Moderate aortic stenosis. Ordering Physician: Hubert Hastings Referring Physician: CRISTEL GIL Performed By: Holly Ray RDCS Physical Exam Const alert, oriented x3 and no apparent distress Constitutional Narrative: Patient appears older than his stated age General Appearance: cooperative, well kempt and well developed Orientation / Consciousness: awake, oriented to person, oriented to place and oriented to time HEENT normocephalic and moist oral mucous membranes Eyes PERRL, EOMs intact bilaterally and conjunctivae normal Neck supple, no JVD, thyroid normal and no carotid bruits General: trachea midline Resp normal respiratory effort Resp Narrative: Decreased breath sounds are noted over the patient's right lower lung field Auscultation: Negative for rales, rhonchi or wheezes Cardio S1 normal heart sound, S2 normal heart sound, no murmurs, no rub and no gallops Cardio Narrative: Heart rate and rhythm is irregular GI normal to inspection, nondistended, normoactive bowel sounds, soft to palpation, non-tender and non-distended Extremity no clubbing, cyanosis or edema Skin no rashes or lesions noted General Skin Exam: no breakdown Neuro oriented x3, CN's II-XII intact bilaterally, moves all extremities, no focal motor deficits and no sensory deficits noted Sensorium / Orientation: awake and alert Speech: speech normal Psych affect normal Assessment & Plan Assessment/Plan (1) Pleural effusion on right: PLAN: Plan 1. Right-sided pleural effusion-secondary to chronic congestive heart failure with a preserved ejection fraction and severe pulmonary hypertension-patient was given vitamin K today to reduce his INR so that he may undergo a right thoracentesis tomorrow. INR will be rechecked. #2 type 2 diabetes-blood sugars will be monitored, patient is on basal insulin and sliding scale insulin the Accu-Cheks #3 permanent atrial fibrillation on Coumadin-again patient's warfarin is being held for his right thoracentesis #4 elevated troponin secondary to demand ischemia-no specific treatment at this time #5 essential hypertension-continue spironolactone and Lopressor #6 hyperlipidemia-patient is on a statin Total clinical time spent by myself addressing the patient's medical issues, reviewing all of his data, and collaborating with patient's care team: 35 minutes Charges/Coding Visit Charges Inpatient E&M: 18948 Subs Hosp L2
[2024-04-27 21:30] LABS: International Normalized Ratio 1.7
[2024-04-27 22:58] VITALS: BP 123/78; PULSE 82; RESP 16; TEMP 36.6; O2SAT 96
[2024-04-27 23:37] LABS: Bedside Glucose 166 mg/dL (74-106)
[2024-04-28] VITALS (7 sets, daily range): BP systolic 102–128; BP diastolic 67–87; PULSE 82–84; RESP 18–20; TEMP 36.5–36.9; O2SAT 90–98
[2024-04-28 05:48] LABS: Absolute Lymphocyte Count 0.96 X10^3/uL (0.83-4.51); Basophil# 0.05 X10^3/uL; Basophil% 0.5 % (0-1); Eosinophil# 0.21 X10^3/uL; Eosinophils% 2.1 % (0-5); Hematocrit 42.3 % (40-54); Hemoglobin 13.5 g/dL (13.0-16.5); Lymphocyte # 0.96 X10^3/ul (0.83-4.51); Lymphocyte % 9.6 % (19-41); Mean Corp Hgb Conc 31.9 g/dL (32-36); Mean Corpuscular Hgb 25.8 pg (27.0-32.0); Mean Corpuscular Volume 80.9 fL (80-94); Mean Platelet Vol. 10.5 fl (6.2-12.0); Monocyte# 0.76 X10^3/uL; Monocyte% 7.6 % (0-10); NRBC Flagged by Analyzer 0 % (0-5); Neutrophil % 79.7 % (47-70); Platelet Count 218 K/mm3 (150-450); RBC Distribution Width CV 16.1 % (11.6-14.6); RBC Distribution Width SD 46.9 fl (35.1-43.9); Red Blood Count 5.23 M/mm3 (4.6-6.2)
[2024-04-28 06:14] LABS: International Normalized Ratio 1.4; Prothrombin Time (Protime)PT. 17.3 SECONDS (11.7-14.9)
[2024-04-28] MEDS: Glycerin/Hypromellose/PEG400 15 ml Bottle 1 DRP EACH EYE (06:19)
[2024-04-28] MEDS: Insulin Lispro 100 UNIT/ML INSULN.PEN SC ×2 (06:19→11:47)
[2024-04-28 06:28] LABS: Anion Gap 12 (5-15); BUN 24 mg/dL (4-19); BUN/Creat Ratio 24.4 RATIO (10-20); Calcium,Total 10.2 mg/dL (7.6-11.0); Carbon Dioxide 23.2 mmol/L (21.0-32.0); Chloride 102 mmol/L (98-108); Creatinine, Serum 0.99 mg/dL (0.70-1.20); EST Glomerular Filtration Rate 80 (>60); Estimated Creatinine Clearance 77.45 ml/min (50-250); Glucose 136 mg/dL (70-99); Potassium 3.9 mmol/L (3.3-5.1); Sodium Level 137 mmol/L (133-145)
[2024-04-28 06:40] LABS: Bedside Glucose 154 mg/dL (74-106)
--- NOTE | 2024-04-28 07:00 | US_ITS ---
PROCEDURE: THORACENTESIS W US REASON FOR EXAM: R PLEURAL EFFUSION TECHNIQUE: The procedure as well as the benefits and possible complications including infection and bleeding and pneumothorax were explained to the patient. Informed consent was obtained. The overlying skin was prepped and draped in usual sterile fashion. Following local anesthetic application, a 5 Faroese catheter was placed into the right hemithorax. Clear jered colored fluid was aspirated. A total of 1420 mL was aspirated. A 100 mL sample was sent to the laboratory. A chest radiograph was ordered. No immediate complication noted. COMPARISON: None. FINDINGS: 1420 mL of jered colored fluid was aspirated. A 100 mL sample was sent to the laboratory. US/Thoracentesis W US IMPRESSION: Successful right ultrasound-guided thoracentesis. Reading Location: [place] [id number]
--- NOTE | 2024-04-28 08:10 | FLU_PTH ---
PATIENT: BLAYNE ABDI LOC: [facility] U#:[id number] AGE/SX: 74/M ROOM: [facility] RE04/25/[address]: Dr. Luis Nieto DO : 1950 BED: 1 DIS: 04/28/2024 SPEC #: [id number] RECD: 04/28/24 08:46 STATUS: BEATRICE REThompson #: [id number] GOLDEN: 04/28/24 08:[address]: Luis Nieto DEPT: CYTOLOGY RECD BY: Anna Redd ENTERED: 04/28/24 11:00 SP TYPE: Fluid OTHR DR: DO Dr. Nba Jose MD Jessica Franklin, [facility], EVENING SITTER-C Tissues: THORACIC FLUID Procedures: Special Stain Group II Surgery Specimen Level IV Cytospin Fluid HEADER OPERATION: Thoracentesis PRE-OP DIAGNOSIS: Right pleural effusion TISSUE SUBMITTED: Thoracentesis fluid for cytology DIAGNOSIS CYTOLOGY Right pleural effusion, cytology and cell block:Mesothelial cells and light mixed inflammationFlo zheng MD, 05/02/2024 CYTOLOGY STUDY Slides are reviewed. CYTOLOGY GROSS Received is 80 ml of hazy-gold fluid labeled with the patient's name and and designated per the requisition as Thoracentesis fluid. Submitted for cytology preparation including cell block. Mr 04/28/2024 CPT: 18527,08723, TC:4
[2024-04-28] MEDS: Lidocaine 2% (20 ml mdv) 20 ML Vial INFILT (08:15)
--- NOTE | 2024-04-28 08:28 | RAD_ITS ---
EXAM: XR Chest, 2 Views CLINICAL INDICATION: POST THORACENTESIS TECHNIQUE: Frontal and lateral views of the chest. COMPARISON: XR Chest dated 04/25/2024 FINDINGS: LUNGS AND PLEURAL SPACES: Decreasing right pleural effusion. No pneumothorax. HEART: Cardiomegaly with mild congestion. MEDIASTINUM: Unremarkable. Normal mediastinal contour. BONES/JOINTS: Unremarkable. No acute fracture. RAD/Chest Insp/Exp 2 View IMPRESSION: 1. Cardiomegaly with mild congestion. 2. Decreasing right pleural effusion. No pneumothorax. Reading [facility]
[2024-04-28] MEDS: Metoprolol Tartrate 50 MG Tablet PO (09:05)
[2024-04-28] MEDS: Spironolactone 25 MG Tablet PO (09:05)
[2024-04-28] MEDS: Cyanocobalamin 500 MCG Tablet 1000 MCG PO (09:06)
[2024-04-28] MEDS: Tamsulosin HCl 0.4 MG Capsule PO (09:06)
[2024-04-28] MEDS: Pravastatin 20 MG Tablet PO (09:06)
[2024-04-28 10:22] LABS: Cytology, Body Fluid / CSF SEE PATHOLOGY REPORT
[2024-04-28 10:30] LABS: Pathologist Comment/Body Fluid May follow
[2024-04-28 11:13] LABS: Body Fluid Mononuclear WBC # 0.165 10^3/uL; Body Fluid Mononuclear WBC % 92.2 %; Body Fluid Polynuclear WBC # 0.014 10^3/uL; Body Fluid Polynuclear WBC % 7.8 %; Body Fluid Total Cells Counted 0.205 10^3/ul
[2024-04-28 12:13] LABS: Bedside Glucose 210 mg/dL (74-106)
[2024-04-28 12:27] LABS: Appearance/Body Fluid CLEAR; Color/Body Fluid YELLOW; Source- Body Fluid PLEURAL FLUID
[2024-04-28 12:28] LABS: Red Cell Count/Body Fluid 656 /mm3; White Blood Count/Body Fluid 159 /mm3
--- NOTE | 2024-04-28 12:34 | PCM.DC ---
Discharge Instructions Diet Discharge Diet: 1800 Calorie Control Diet DC O2, CPAP, BIPAP needs Home O2 Discharge instructions: No Dressing / Incision Discharge Activity: Return to Normal Activity Weight Bearing Status: Full weight bearing Follow Up Care Test Results: Test results from this visit will be discussed in further detail at your follow-up appointment, if applicable. Discharge Plan Admission Admit Date/Time: 04/25/24 19:00 Primary Reason for Your Visit: Right pleural effusion, hypoxia, congestive heart failure Attending Provider: Luis Nieto Primary Care Provider: Evelia Benítez [facility] Consulting Providers: Hubert Hastings; Nba Seth Instructions Patient Instructions: BONILLA RN Thoracentesis Dc Discharge Orders/Prescriptions Prescriptions: New furosemide [Lasix] 40 mg tablet 40 mg PO DAILY Qty: 30 0RF Continued cyanocobalamin (vitamin B-12) 1,000 mcg capsule 1,000 mcg PO DAILY spironolactone 25 mg tablet 25 mg PO DAILY acetaminophen 500 mg capsule 500 mg PO Q6H PRN (Reason: fever or pain) Lantus Solostar U-100 Insulin 100 unit/mL (3 mL) insulin pen 35 unit subcut QPM cholecalciferol (vitamin D3) 1,250 mcg (50,000 unit) capsule 1,250 mcg PO QWEEK metformin 500 mg tablet 500 mg PO DAILY tamsulosin [Flomax] 0.4 mg capsule 0.4 mg PO DAILY pravastatin 20 mg tablet 20 mg PO DAILY glimepiride 4 mg tablet 4 mg PO DAILY Qty: 60 0RF ferrous sulfate 325 mg (65 mg iron) capsule, extended release 325 mg PO .3 x week warfarin [Jantoven] 6 mg tablet 6 mg PO FR warfarin 4 mg tablet 4 mg PO DEA Protocol: Dose Management Condition: Saturday Dose/Route: 4 mg Instruction: 1 x 4 mg tablet Condition: Saturday Dose/Route: 4 mg Instruction: 1 x 4 mg tablet Condition: Saturday Dose/Route: 4 mg Instruction: 1 x 4 mg tablet Condition: Saturday Dose/Route: 4 mg Instruction: 1 x 4 mg tablet Condition: Dose/Route: 4 mg Instruction: 1 x 4 mg tablet Condition: Saturday Dose/Route: 4 mg Instruction: 1 x 4 mg tablet Condition: Saturday Dose/Route: 4 mg Instruction: 1 x 4 mg tablet Protocol Text: Adjustment Start Date: Saturday01/07/24 INR Value: 1.9 INR Date: 01/07/24 Recheck Date: 01/21/24 Rx Instructions: 1 tablet 4 days a week and 1.5 tablets 3 days a week or as directed metoprolol tartrate 50 mg tablet 50 mg PO BID Qty: 180 3RF Referrals / Follow Up: Evelia Benítez, ACTIVITY COORDINATOR-C [Primary Care Provider] - Within 1 Week (Call to confirm appointment) Disposition Disposition (needs filled in before D/C Order can be placed): Home, Self Care
--- NOTE | 2024-04-28 12:48 | DS.PCM_ITS ---
Providers Date of Admission: 04/25/24 Date of Discharge: 04/28/24 Primary Care Physician: Cristel Gil [facility], ASTRONOMY TEACHER-C Reason For Visit: R PLEURAL EFFUSION WITH DYSPNEAON EXERTION Diagnosis Discharge Diagnosis (1) Pleural effusion on right: Status: Acute Code(s): J90 - Pleural effusion, not elsewhere classified Plan 1. Right-sided pleural effusion-secondary to chronic congestive heart failure with a preserved ejection fraction and severe pulmonary hypertension-patient was given vitamin K today to reduce his INR so that he may undergo a right thoracentesis tomorrow. INR will be rechecked. #2 type 2 diabetes-blood sugars will be monitored, patient is on basal insulin and sliding scale insulin the Accu-Cheks #3 permanent atrial fibrillation on Coumadin-again patient's warfarin is being held for his right thoracentesis #4 elevated troponin secondary to demand ischemia-no specific treatment at this time #5 essential hypertension-continue spironolactone and Lopressor #6 hyperlipidemia-patient is on a statin Medications at Discharge Home Medications pravastatin 20 mg tablet 20 mg PO DAILY 01/26/21 glimepiride 4 mg tablet 4 mg PO DAILY #60 tabs 02/07/21 acetaminophen 500 mg capsule 500 mg PO Q6H PRN fever or pain 11/08/21 cyanocobalamin (vitamin B-12) 1,000 mcg capsule 1,000 mcg PO DAILY 11/08/21 ferrous sulfate 325 mg (65 mg iron) capsule,extended release 325 mg PO .3 x week 11/08/21 spironolactone 25 mg tablet 25 mg PO DAILY 11/08/21 insulin glargine 100 unit/mL (3 mL) subcutaneous pen (Lantus Solostar U-100 Insulin) 35 unit subcut QPM 01/09/22 cholecalciferol (vitamin D3) 1,250 mcg (50,000 unit) capsule 1,250 mcg PO QWEEK 03/08/22 metformin 500 mg tablet 500 mg PO DAILY 09/14/22 tamsulosin 0.4 mg capsule (Flomax) 0.4 mg PO DAILY 09/14/22 metoprolol tartrate 50 mg tablet 50 mg PO BID #180 tabs 01/07/23 warfarin 4 mg tablet 4 mg PO SUMOTUWETHSA 04/25/24 warfarin 6 mg tablet (Jantoven) 6 mg PO FR blood 04/25/24 furosemide 40 mg tablet (Lasix) 40 mg PO DAILY #30 tabs 04/28/24 Hospital Course Operations None Procedures Thoracentesis Summary of Care Provided Minutes Spent on Discharge: 31 Hospital Course: Patient was seen and examined in the emergency room at [facility] with complaints of low blood sugar and dyspnea. He had been seen in the emergency room approximately a month ago and diagnosed with a right pleural effusion but refused at that time to have a thoracentesis. Workup in the emergency room included a CBC which showed an elevated white blood cell count at 12.4, chemistry profile was unremarkable, troponin was 77 and beta natruretic peptide was 849. Patient's INR was 3.1. Chest x-ray was obtained, it showed cardiomegaly with right basilar opacification similar in appearance to previous chest x-ray likely representing effusion/atelectasis. Patient was admitted to PCU, due to an elevated INR he was given IV vitamin K and underwent thoracentesis with removal of approximately 1200 cc of fluid from the right pleural cavity. Patient tolerated the procedure well. On 04/28/2024, patient was seen and examined: On examination he appeared in good health and spirits. Vital signs as documented. Skin warm and dry and without overt rashes. Neck without JVD, neck was supple, trachea midline, thyroid was normal. Lungs clear bilaterally, normal air movement was noted. Heart exam notable for regular rhythm, normal sounds and absence of murmurs, rubs or gallops. Abdomen unremarkable and without evidence of organomegaly, masses, or abdominal aortic enlargement. Bowel sounds are present, abdomen is not distended. Extremities nonedematous, no cyanosis was noted, no clubbing was noted. Neuro: Cranial nerves II through XII are grossly intact, no focal motor deficits were noted, sensation to light touch and pinprick intact, motor exam 5/5 throughout. Psych: Patient is alert and oriented x3, he does not appear anxious or depressed, he does not appear agitated. Patient appears stable for discharge home on 04/28/2024 Weight / BMI Weight Weight: 103.4 kg Body Mass Index (BMI) 34.6 ABG / Lab / Microbiology Data 04/28/24 04:54 04/28/24 04:54 Laboratory: Laboratory Results - last 24 hr 04/27/24 05:39: Sodium 139, Potassium 4.1, Chloride 102, Carbon Dioxide 24.3, Anion Gap 13, BUN 20 H, Creatinine 0.97, Estim Creat Clear Calc 79.05, Est GFR (MDRD) Non-Af 83, BUN/Creatinine Ratio 20.7 H, Glucose 153 H, Calcium 10.7, Lactate Dehydrogenase 238, Total Protein 7.5 04/27/24 11:11: POC Glucose 194 H 04/27/24 17:02: POC Glucose 174 H 04/27/24 20:54: PT 20.0 H, INR 1.7 04/27/24 23:08: POC Glucose 166 H 04/28/24 04:54: WBC 10.0, RBC 5.23, Hgb 13.5, Hct 42.3, MCV 80.9, MCH 25.8 L, M CHC 31.9 L, RDW Std Deviation 46.9 H, RDW Coeff of Flaco 16.1 H, Plt Count 218, MPV 10.5, Immature Gran % (Auto) 0.500, Neut % (Auto) 79.7 H, Lymph % (Auto) 9.6 L, [place] % (Auto) 7.6, Eos % (Auto) 2.1, Baso % (Auto) 0.5, Absolute Neuts (auto) 8.0 H, Absolute Lymphs (auto) 0.96, Nucleated RBC % 0, PT 17.3 H, INR 1.4, Sodium 137, Potassium 3.9, Chloride 102, Carbon Dioxide 23.2, Anion Gap 12, BUN 24 H, Creatinine 0.99, Estim Creat Clear Calc 77.45, Est GFR (MDRD) Non-Af 80, B UN/Creatinine Ratio 24.4 H, Glucose 136 H, Calcium 10.2 04/28/24 06:18: POC Glucose 154 H 04/28/24 08:10: Fluid Tot Cell Count 0.205, Fld Polynuclear WBCs # 0.014, Fld Polynuclear WBCs % 7.8, Fluid Mononuclear WBCs 0.165, Fld Mononuclear WBCs % 92.2 04/28/24 11:36: POC Glucose 210 H Microbiology: Microbiology 04/28/24 08:10 Fluid - Thoracentesis Fluid Gram Stain - Final 04/28/24 08:10 Fluid - Thoracentesis Fluid Body Fluid Culture - Preliminary No growth-Final to follow 04/28/24 08:10 Fluid - Thoracentesis Fluid Anaerobic Culture - Preliminary No growth in 48 hours. Radiography Diagnostic Testing: Radiology Impression Echocardiogram 04/25/24 19:53 Interpretation Summary The estimated ejection fraction is 70 %. Moderately dilated right ventricle. There is mild biatrial dilatation. Trivial mitral valve insufficiency. Severe pulmonary hypertension. Moderate aortic stenosis. Ordering Physician: Hubert Hastings Referring Physician: CRISTEL GIL Performed By: Holly Ray RDCS Thoracentesis Ultrasound 04/28/24 07:00 IMPRESSION: Successful right ultrasound-guided thoracentesis. [facility] Chest [facility]-Ray 04/28/24 08:28 IMPRESSION: 1. Cardiomegaly with mild congestion. 2. Decreasing right pleural effusion. No pneumothorax. Reading Location: [facility] D/C Instructions Discharge Diet: 1800 Calorie Control Diet Weight Bearing Status: Full weight bearing DC O2, CPAP, BIPAP Needs Home O2 Discharge instructions: No Meaningful Use Info Meaningful Use Meaningful Use Diagnoses (Choose all that apply): None applicable Ischemic Stroke Statin Dosing Therapy Reference: STATIN DOSE THERAPY REFERENCE: * Patients > 75 years receive moderate or high dose statin therapy. * Patients 75 years or YOUNGER should receive HIGH intensity statin dose unless contraindicated. You will be required to document reason for non-treatment if statin daily dose does not meet guidelines. HIGH DOSE STATIN THERAPY DAILY Atorvastatin > than or = to 40 mg Rosuvastatin > than or = to 20 mg Amlodipine + Atorvastatin > than or = to 2.5/40 mg Ezetimibe + Simvastatin 10/80 mg Simvastatin 80mg Discharge Plan Admission Admit Date/Time: 04/25/24 19:00 Primary Reason for Your Visit: Right pleural effusion, hypoxia, congestive heart failure Attending Provider: Luis Nieto Primary Care Provider: Cristel Gil Consulting Providers: Hubert Hastings; Nba Seth Instructions Patient Instructions: BONILLA RN Thoracentesis Dc Discharge Orders/Prescriptions Prescriptions: New furosemide [Lasix] 40 mg tablet 40 mg PO DAILY Qty: 30 0RF Continued cyanocobalamin (vitamin B-12) 1,000 mcg capsule 1,000 mcg PO DAILY spironolactone 25 mg tablet 25 mg PO DAILY acetaminophen 500 mg capsule 500 mg PO Q6H PRN (Reason: fever or pain) Lantus Solostar U-100 Insulin 100 unit/mL (3 mL) insulin pen 35 unit subcut QPM cholecalciferol (vitamin D3) 1,250 mcg (50,000 unit) capsule 1,250 mcg PO QWEEK metformin 500 mg tablet 500 mg PO DAILY tamsulosin [Flomax] 0.4 mg capsule 0.4 mg PO DAILY pravastatin 20 mg tablet 20 mg PO DAILY glimepiride 4 mg tablet 4 mg PO DAILY Qty: 60 0RF ferrous sulfate 325 mg (65 mg iron) capsule, extended release 325 mg PO .3 x week warfarin [Jantoven] 6 mg tablet 6 mg PO FR warfarin 4 mg tablet 4 mg PO DEA Protocol: Dose Management Condition: Saturday Dose/Route: 4 mg Instruction: 1 x 4 mg tablet Condition: Saturday Dose/Route: 4 mg Instruction: 1 x 4 mg tablet Condition: Saturday Dose/Route: 4 mg Instruction: 1 x 4 mg tablet Condition: Saturday Dose/Route: 4 mg Instruction: 1 x 4 mg tablet Condition: Dose/Route: 4 mg Instruction: 1 x 4 mg tablet Condition: Saturday Dose/Route: 4 mg Instruction: 1 x 4 mg tablet Condition: Saturday Dose/Route: 4 mg Instruction: 1 x 4 mg tablet Protocol Text: Adjustment Start Date: Saturday01/07/24 INR Value: 1.9 INR Date: 01/07/24 Recheck Date: 01/21/24 Rx Instructions: 1 tablet 4 days a week and 1.5 tablets 3 days a week or as directed metoprolol tartrate 50 mg tablet 50 mg PO BID Qty: 180 3RF Referrals / Follow Up: Cristel Gil, ASTRONOMY TEACHER-C [Primary Care Provider] - 03/12/25 9:00 am (Appointment is with Linwood Cowart N.PSanjiv) Disposition Disposition (needs filled in before D/C Order can be placed): Home, Self Care Charges/Coding Visit Charges Inpatient E&M: 64761 Disch Hosp >30min
--- NOTE | 2024-04-28 13:07 | CHAPLAIN ---
Type of Pastoral Visit _x__ Initial Visit ___ Follow-up Visit ___ On-call Visit ___ General Patient Visit ___ Spiritual Assessment ___ Family Conference ___ Bereavement ___ Rapid Response ___ Code Blue ___ Other (describe below) Pastoral Care Referral From _x__ Patient ___ Family ___ Nurse ___ Physician ___ Mail Clerks Supervisor ___ Cash Posting Clerk ___ Other (describe below) Sacrament/Intervention _x__ Active listening ___ Anointing ___ Muslim ___ Bereavement ___ Communion ___ Raven exploration ___ _x__ Life review ___ Prayer ___ Reconciliation ___ Sacrament of Sick _x__ Supportive presence ___ Wedding ___ Other (describe below) Pastoral Comments patient reports on the 'deacon who visited me and the [employer] hospitalistic employee health nurse that offered me communion'; pt talks about his procedure done this morning and that he had waited for a year to come to the hospital because my sister had this same thing and three weeks later because they found cancer and other family members have had major health issues around this same time; explored pt's feelings more but then he refused to talk more because if we keep going there I will get too emotional; gave permission for pt to get emotional if that was needed but he refused; talked about other factors of his life; pt declined a prayer 'because the deacon did a nice prayer';
[2024-04-28 13:09] LABS: Lymphocytes 42 %; Macrophages 28 %; Monocytes 21 %; Neutrophil (Segs) 9 %
[2024-04-28 13:19] LABS: LDH,Body Fluid 92 Units/L (Not Establ.); Protein, Body Fluid 3.8 g/dL (Not Establ.)
[2024-04-28 13:36] LABS: Specific Gravity, Body Fluid 1.026
--- NOTE | 2024-04-28 13:48 | PHA.DC_ITS ---
Pharmacy [facility] has performed discharge medication reconciliation and counseling for this patient. The patient's discharge medication list was reviewed for discrepancies and discrepancies were resolved. The patient was counseled on the following discharge medications and changes in medications for homegoing were reviewed. The Reason for Use, instructions for use, and potential side effects were reviewed for all new medications. The patient's questions regarding all of their medications were answered. 1. Furosemide 40 mg PO daily The patient was able to verbally demonstrate an understanding of their discharge medications. Medications at Discharge Home Medications pravastatin 20 mg tablet 20 mg PO DAILY 01/26/21 glimepiride 4 mg tablet 4 mg PO DAILY #60 tabs 02/07/21 acetaminophen 500 mg capsule 500 mg PO Q6H PRN fever or pain 11/08/21 cyanocobalamin (vitamin B-12) 1,000 mcg capsule 1,000 mcg PO DAILY 11/08/21 ferrous sulfate 325 mg (65 mg iron) capsule,extended release 325 mg PO .3 x week 11/08/21 spironolactone 25 mg tablet 25 mg PO DAILY 11/08/21 insulin glargine 100 unit/mL (3 mL) subcutaneous pen (Lantus Solostar U-100 Insulin) 35 unit subcut QPM 01/09/22 cholecalciferol (vitamin D3) 1,250 mcg (50,000 unit) capsule 1,250 mcg PO QWEEK 03/08/22 metformin 500 mg tablet 500 mg PO DAILY 09/14/22 tamsulosin 0.4 mg capsule (Flomax) 0.4 mg PO DAILY 09/14/22 metoprolol tartrate 50 mg tablet 50 mg PO BID #180 tabs 01/07/23 warfarin 4 mg tablet 4 mg PO SUMOTUWETHSA 04/25/24 warfarin 6 mg tablet (Jantoven) 6 mg PO FR blood 04/25/24 furosemide 40 mg tablet (Lasix) 40 mg PO DAILY #30 tabs 04/28/24
[2024-04-28 16:41] LABS: Glucose, Body Fluid 148 mg/dL (Not Establ.)
== END 2024-04-28 14:27 | disposition home or self-care (01) | DRG 292 ==
LOC: ED 19:01 → PCU 19:33
PROVIDERS: Internal Medicine; Admitting Provider Hospitalist; Emergency Provider Emergency Medicine; PCP Nurse Practitioner Family; Referring Provider Hospitalist; Visit Provider Internal Medicine
DX: I13.0 Hypertensive heart and chronic kidney disease with heart failure and stage 1 through stage 4 chronic kidney disease, or unspecified chronic kidney disease (principal); J90 Pleural effusion, not elsewhere classified; E87.1 Hypo-osmolality and hyponatremia; I24.89 Other forms of acute ischemic heart disease; I50.32 Chronic diastolic (congestive) heart failure; I48.21 Permanent atrial fibrillation; N13.8 Other obstructive and reflux uropathy; I27.20 Pulmonary hypertension, unspecified; E11.649 Type 2 diabetes mellitus with hypoglycemia without coma; N18.9 Chronic kidney disease, unspecified; Z68.34 Body mass index [BMI] 34.0-34.9, adult; E11.22 Type 2 diabetes mellitus with diabetic chronic kidney disease; E78.5 Hyperlipidemia, unspecified; Z79.4 Long term (current) use of insulin; E83.52 Hypercalcemia; I48.0 Paroxysmal atrial fibrillation; Z79.84 Long term (current) use of oral hypoglycemic drugs; R53.81 Other malaise; Z87.891 Personal history of nicotine dependence; E66.811 Obesity, class 1; R79.89 Other specified abnormal findings of blood chemistry; Z79.899 Other long term (current) drug therapy; Z79.01 Long term (current) use of anticoagulants; N40.1 Benign prostatic hyperplasia with lower urinary tract symptoms
CPT/HCPCS: 32555; 36415; 71045; 71046; 71250; 80048; 80076; 81001; 81002; 82945; 82962; 83036; 83615; 83880; 83970; 84155; 84157; 84484; 85025; 85027; 85610; 85730; 87070; 87075; 87205; 88108; 88305; 88313; 89050; 93005; 93306; 97116; 97162; 97166; 97530; 97802; 99285; A4216

== ENCOUNTER → 2024-05-05 | Outpatient (CLI) | payer MEDICARE, OTHER, SELFPAY ==
[2024-05-05 13:29] LABS: Anion Gap 13 (5-15); BUN 27 mg/dL (4-19); Calcium,Total 11.4 mg/dL (7.6-11.0); Carbon Dioxide 25.3 mmol/L (21.0-32.0); Chloride 94 mmol/L (98-108); Creatinine, Serum 1.16 mg/dL (0.70-1.20); EST Glomerular Filtration Rate 67 (>60); Glucose 169 mg/dL (70-99); Potassium 4.7 mmol/L (3.3-5.1); Sodium Level 132 mmol/L (133-145)
== END | disposition home or self-care (01) ==
LOC: VSLAB 09:38
PROVIDERS: PCP Nurse Practitioner Family
DX: I27.20 Pulmonary hypertension, unspecified (principal)
CPT/HCPCS: 36415; 80048

== ENCOUNTER → 2024-05-12 | Outpatient (CLI) | payer MEDICARE, OTHER, SELFPAY ==
[2024-05-12 14:46] LABS: Pro- Brain NATRIURETIC PEPTIDE 1054 pg/mL (<=900)
== END | disposition home or self-care (01) ==
LOC: VSLAB 09:43
PROVIDERS: PCP Nurse Practitioner Family; Visit Provider Internal Medicine Pulmonary Disease
DX: I27.0 Primary pulmonary hypertension (principal); J90 Pleural effusion, not elsewhere classified
CPT/HCPCS: 36415; 83880

== ENCOUNTER 2024-07-07 16:00 | Outpatient (RCR) | payer MEDICARE, OTHER, SELFPAY ==
[2024-07-08 15:34] LABS: INR Fingerstick 3.1
== END 2024-07-07 18:00 | disposition home or self-care (01) ==
LOC: LAB 16:00
PROVIDERS: Referring Provider Physician Assistant Medical; Visit Provider Physician Assistant Medical
DX: Z79.01 Long term (current) use of anticoagulants (principal)
CPT/HCPCS: 36416; 85610

== ENCOUNTER 2024-09-09 10:11 | Outpatient (RCR) | payer MEDICARE, OTHER, SELFPAY ==
[2024-08-27 10:26] LABS: Prothrombin Time (Protime)PT. 38.9 SECONDS (11.7-14.9)
[2024-09-03 14:07] LABS: INR Fingerstick 4.5
[2024-09-09 10:28] LABS: INR Fingerstick 4.0
[2024-09-09 10:49] LABS: Prothrombin Time (Protime)PT. 36.7 SECONDS (11.7-14.9)
== END 2024-09-17 21:37 | disposition home or self-care (01) ==
LOC: LAB 10:11
PROVIDERS: Referring Provider Physician Assistant Medical; Visit Provider Physician Assistant Medical
DX: Z79.01 Long term (current) use of anticoagulants (principal); I48.0 Paroxysmal atrial fibrillation
CPT/HCPCS: 36415; 36416; 85610

== ENCOUNTER → 2024-09-11 | Outpatient (CLI) | payer MEDICARE, OTHER, SELFPAY ==
--- NOTE | 2024-09-11 15:36 | RAD_ITS ---
EXAM: XR Chest, 2 Views CLINICAL INDICATION: RIGHT PLEURAL EFFUSION TECHNIQUE: Frontal and lateral views of the chest. COMPARISON: No relevant prior studies available. FINDINGS: LUNGS AND PLEURAL SPACES: Right basilar atelectasis or pneumonia. Right pleural effusion. No pneumothorax. HEART: Unremarkable. No cardiomegaly. MEDIASTINUM: Unremarkable. Normal mediastinal contour. BONES/JOINTS: Unremarkable. No acute fracture. RAD/Chest PA and Lateral IMPRESSION: 1. Right basilar atelectasis or pneumonia. 2. Right pleural effusion. Reading Location: [id number]
== END | disposition home or self-care (01) ==
LOC: RAD 14:57
PROVIDERS: Referring Provider Physician Assistant Medical; Visit Provider Physician Assistant Medical
DX: J90 Pleural effusion, not elsewhere classified (principal)
CPT/HCPCS: 71046

== ENCOUNTER 2024-11-25 13:17 | Outpatient (RCR) | payer MEDICARE, OTHER, SELFPAY ==
[2024-11-25 13:53] LABS: Hematocrit 37.8 % (40-54); Hemoglobin 12.5 g/dL (13.0-16.5); Immature Granulocytes Count 0.040 X10^3/uL (0.0-0.0); Mean Corp Hgb Conc 33.1 g/dL (32-36); Mean Corpuscular Volume 85.1 fL (80-94); Mean Platelet Vol. 9.7 fl (6.2-12.0); NRBC Flagged by Analyzer 0 % (0-5); Platelet Count 233 K/mm3 (150-450); RBC Distribution Width CV 14.5 % (11.6-14.6); RBC Distribution Width SD 44.4 fl (35.1-43.9); Red Blood Count 4.44 M/mm3 (4.6-6.2); White Blood Count 10.1 K/mm3 (4.4-11.0)
[2024-11-25 14:01] LABS: Prothrombin Time (Protime)PT. 24.7 SECONDS (11.7-14.9)
[2024-11-25 14:33] LABS: AST(SGOT) 20 U/L (<=37); Alanine Aminotransfer ALT/SGPT 12 U/L (<=46); Albumin, Serum 4.1 g/dL (3.4-4.8); Alkaline Phosphatase 97 U/L (40-129); Anion Gap 11 (5-15); BUN 15 mg/dL (4-19); BUN/Creat Ratio 16.5 RATIO (10-20); Calcium,Total 10.3 mg/dL (7.6-11.0); Carbon Dioxide 23.2 mmol/L (21.0-32.0); Chloride 103 mmol/L (98-108); Globulin 3.5 g/dL (2.2-4.2); Glucose 52 mg/dL (70-99); Potassium 3.8 mmol/L (3.3-5.1)
== END 2024-11-25 18:00 | disposition home or self-care (01) ==
LOC: LAB 13:17
PROVIDERS: Referring Provider Physician Assistant Medical; Visit Provider Physician Assistant Medical
DX: I48.0 Paroxysmal atrial fibrillation (principal); Z79.01 Long term (current) use of anticoagulants; E11.9 Type 2 diabetes mellitus without complications
CPT/HCPCS: 36415; 80053; 84443; 85025; 85610

== ENCOUNTER → 2024-11-25 | Outpatient (CLI) | payer MEDICARE, OTHER, SELFPAY | END | disposition home or self-care (01) | DX: E11.9 Type 2 diabetes mellitus without complications (principal); I48.0 Paroxysmal atrial fibrillation; Z79.01 Long term (current) use of anticoagulants | CPT/HCPCS: 36415; 80053; 84443; 85025; 85610 ==

== ENCOUNTER 2024-12-30 13:41 | Inpatient (IN) | payer MEDICARE, OTHER, SELFPAY ==
[2024-12-30] VITALS (10 sets, daily range): BP systolic 113–131; BP diastolic 71–91; PULSE 77–100; RESP 20–27; TEMP 36.1–37.1; O2SAT 92–99; BMI 39.7; BMI 37.8
--- NOTE | 2024-12-30 14:37 | ED.RN ---
Dr Blandon notified bp 170/88, no new orders given.
--- NOTE | 2024-12-30 14:38 | ED.RN ---
wrong pt about the bp and Dr Blandon.
--- NOTE | 2024-12-30 14:44 | EKG12_ITS ---
Test Reason : SOB Blood Pressure : */* mmHG Vent. Rate : 102 BPM Atrial Rate : * BPM P-R Int : * ms QRS Dur : 80 ms QT Int : 338 ms P-R-T Axes : * 88 149 degrees QTcB Int : 440 ms Atrial fibrillation with rapid ventricular response ST & T wave abnormality, consider lateral ischemia Abnormal ECG Confirmed by DEAN MAYEN, RENATA ([id number]), editor in chief newspaper MARSHA STAPLETON ([id number]) on 01/04/2025 8:22:17 AM Referred By: Confirmed By: RENATA MORAN MD
--- NOTE | 2024-12-30 14:54 | EX.ED.DYSGE1 ---
HPI History of Present Illness Chief Complaint: Shortness of Breath Narrative Narrative: Patient is a 74-year-old male with past medical history of alcohol abuse, FRANCOIS, chronic kidney disease, paroxysmal atrial fibrillation on warfarin, hypertension, diabetes who presented to the emergency department the chief complaint of shortness of breath. He states that he has had some difficulty breathing for the past few days and notes that today his breathing this morning significantly worsened and he notes that his oxygen at home was 67% on room air and he called EMS to have him brought here for further evaluation and management. States he is not coughing anything up [facility] Medical History Pleural effusion on right Alcohol abuse Sleep apnea Cardiac murmur Chronic kidney disease (CKD) Frequent headaches Hyperlipidemia Paroxysmal atrial fibrillation Atrial fibrillation with rapid ventricular response (01/2021) Essential hypertension Severe protein-calorie malnutrition HELENA (acute kidney injury) Abrasion of cornea, right Diabetes Home Medications ?Medication ?Instructions ?Recorded ?Last Taken ?Type pravastatin 20 mg tablet 20 mg PO DAILY 01/26/21 Unknown History glimepiride 4 mg tablet 4 mg PO DAILY #60 tabs 02/07/21 Unknown Rx acetaminophen 500 mg capsule 500 mg PO Q6H PRN fever or pain 11/08/21 Unknown History cyanocobalamin (vitamin B-12) 1,000 mcg PO DAILY 11/08/21 Unknown History 1,000 mcg capsule ferrous sulfate 325 mg (65 mg 325 mg PO .3 x week 11/08/21 Unknown History iron) capsule,extended release spironolactone 25 mg tablet 25 mg PO DAILY 11/08/21 Unknown History insulin glargine 100 unit/mL (3 35 unit subcut QPM 01/09/22 Unknown History mL) subcutaneous pen (Lantus Solostar U-100 Insulin) cholecalciferol (vitamin D3) 1,250 1,250 mcg PO QWEEK 03/08/22 Unknown History mcg (50,000 unit) capsule tamsulosin 0.4 mg capsule (Flomax) 0.4 mg PO DAILY 09/14/22 Unknown History metoprolol tartrate 50 mg tablet 50 mg PO BID #180 tabs 05/04/24 Unknown Rx warfarin 4 mg tablet 4 mg PO .COMPLEX #120 tabs 09/22/24 Unknown Rx metformin 500 mg tablet 500 mg PO QDAY 11/25/24 Unknown History Allergy/AdvReac Type Severity Reaction Status Date / Time amlodipine (From Lotrel) Allergy Severe Other Verified 12/30/24 13:44 benazepril (From Lotrel) Allergy Severe Other Verified 12/30/24 13:44 furosemide AdvReac Intermediate Pain in Verified 12/30/24 13:44 legs Surgical History History of cataract surgery Social History Smoking Status: Former smoker ROS ROS ED ROS Narrative Constitutional: Denies any fevers, chills, headaches Eyes: Denies double vision Cardiovascular: Denies chest pain or palpitations Respiratory: Complains of shortness of breath as noted above Abdomen: Denies abdominal pain nausea vomit diarrhea : Denies urinary symptoms Neurological: Denies any numbness, weakness, tingling Musculoskeletal: Denies back pain Skin: Denies any rashes or lesions EXAM Physical Exam Narrative Exam Narrative: General: Patient was lying in bed rest comfortably did not appear to be acute distress Head: Atraumatic, normocephalic Eyes: PERRL bilaterally, EOMI bilaterally, no conjunctival injection noted Neck: Soft, supple, trachea midline Cardiovascular: Regular rate and rhythm Respiratory: Diminished breath sounds bilaterally Abdomen: Soft, nondistended, no tenderness to palpation Extremities: +5/5 strength noted in the bilateral lower extremities, 2+ pitting to be in the bilateral extremities Neurological: Patient follow commands knew that he was at [facility] years 2024 Skin: Warm, dry, intact no rashes or lesions noted Const Vital Signs: 12/30/24 13:42 12/30/24 14:11 12/30/24 14:32 Temperature 97.8 F 98.2 F Temperature Source Oral Oral Pulse Rate 77 90 Respiratory Rate 20 H 22 H Respiratory Effort Short of Breath Labored Respiratory Depth Shallow Respiratory Pattern Tachypnea Blood Pressure 122/91 H 119/91 H Blood Pressure Mean 101 100 Pulse Ox 92 99 Oxygen Delivery Method Room Air Nasal Cannula Nasal Cannula Oxygen Flow Rate (L/min) 2 3 12/30/24 14:44 12/30/24 15:18 Temperature 98.8 F Temperature Source Temporal Pulse Rate 100 Respiratory Rate 22 H Respiratory Effort Respiratory Depth Respiratory Pattern Blood Pressure 128/85 H Blood Pressure Mean 99 Pulse Ox 97 99 Oxygen Delivery Method Nasal Cannula Nasal Cannula Oxygen Flow Rate (L/min) 3 3 MDM MDM MDM Narrative Medical decision making narrative: Patient is a 74-year-old male who presented to the emergency department with a chief complaint of hypoxia, shortness of breath. On the differential diagnose includes but not limited to CHF, pleural effusion, pneumothorax, pneumonia. Once workup is obtained reviewed he will be reevaluated. Patient CBC was reviewed and showed a white blood count over 9.9, hemoglobin 0.7, platelet count normal at 243. Patient was 137, Tessman 4, creatinine 0.95. Patient's troponin was noted be 74 with a proBNP was noted be 1961 delta troponin pending he will be given Bumex 1 mg.Echocardiogram from 04/25/2024 reviewed and showed ejection fraction 70% was unable to assess diastolic dysfunction. Will discuss case with hospitalist for admission. I discussed case with on-call astrophysics teacher Dr. Cedillo who reviewed the EKGs and he agrees that his EKG changes and troponin are likely secondary to his hypoxia as he has not any chest pain associated with this. I discussed case with hospitalist who will accept patient for admission however he wants the chest x-ray done before admission therefore this will be followed up on by Dr. Castillo I discussed this with family members and patient at bedside they are agreeable all question concerns were answered. Lab Data Labs: Laboratory Results - last 24 hr 12/30/24 14:22 WBC 9.9 RBC 4.19 L Hgb 11.7 L Hct 35.7 L MCV 85.2 MCH 27.9 MCHC 32.8 RDW Std Deviation 44.2 H RDW Coeff of Flaco 14.3 Plt Count 243 MPV 10.4 Immature Gran % (Auto) 0.500 Neut % (Auto) 82.8 H Lymph % (Auto) 6.9 L [place] % (Auto) 8.3 Eos % (Auto) 1.2 Baso % (Auto) 0.3 Absolute Neuts (auto) 8.2 H Absolute Lymphs (auto) 0.68 L Nucleated RBC % 0 Sodium 137 Potassium 4.0 Chloride 100 Carbon Dioxide 23.1 Anion Gap 14 BUN 16 Creatinine 0.95 Estim Creat Clear Calc 86.71 Est GFR (MDRD) Non-Af 84 BUN/Creatinine Ratio 16.5 Glucose 191 H Calcium 10.7 Troponin T High Sens 74 H* NT pro BNP II 1962 H Discharge Plan Dx/Rx/DC Orders Clinical Impression: Acute hypoxic respiratory failure, CHF exacerbation, Paroxysmal atrial fibrillation, Chronic kidney disease (CKD), Type 2 myocardial infarction Disposition Disposition: [facility] D/C Safety Score for UGIB Assessment Haja-Blatchford Bleeding Score (GBS): Stratifies upper GI bleeding patients who are low-risk and candidates for outpatient management. Hemoglobin, BUN, Recent Vital Signs: Hgb 11.7 g/dL (13.0-16.5) L 12/30/24 14:22 BUN 16 mg/dL (4-19) 12/30/24 14:22 Pulse Rate 100 Blood Pressure 128/85 Score Interpretation: Score of 0: A GBS of 0 is a ?Low Risk? GI bleed, and is highly sensitive (99.6% in a 2007 retrospective study) for predicting which patients did not require any ?medical intervention?: blood transfusion, endoscopy, or surgery. This was confirmed in a 2009 [facility] study where patients with a score of 0 were actually discharged and had no GI bleeding mortality at 6 month followup Score above 0: A GBS greater than zero suggests a ?High Risk? GI bleed that is likely to require ?medical intervention?: transfusion, endoscopy, or surgery. A higher GBS also correlated with a higher likelihood of needing intervention Scores >/= 6 are associated with >50% risk of needing intervention D/C Safety Score for LGIB Assessment Assessment Tool: Readmission and adverse event risk in patients with acute lower GI bleeding. Hemoglobin and Recent Vital Signs: Hgb 11.7 g/dL (13.0-16.5) L 12/30/24 14:22 Pulse Rate 100 12/30/24 15:18 Blood Pressure 128/85 12/30/24 15:18 Score Interpretation: Probability Percentage of safe discharge (absence of rebleeding, blood transfusion, therapeutic intervention, 28 day readmission, or ) Score of 8 or below: Consider discharge, with appropriate precautions. Score of 9 or above: Discharge NOT recommended. Consider admission with further workup and resuscitation as necessary.
[2024-12-30 15:27] LABS: Hematocrit 35.7 % (40-54); Hemoglobin 11.7 g/dL (13.0-16.5); Immature Granulocytes Count 0.050 X10^3/uL (0.0-0.0); Mean Corp Hgb Conc 32.8 g/dL (32-36); Mean Corpuscular Volume 85.2 fL (80-94); Mean Platelet Vol. 10.4 fl (6.2-12.0); NRBC Flagged by Analyzer 0 % (0-5); Platelet Count 243 K/mm3 (150-450); RBC Distribution Width CV 14.3 % (11.6-14.6); RBC Distribution Width SD 44.2 fl (35.1-43.9); Red Blood Count 4.19 M/mm3 (4.6-6.2); White Blood Count 9.9 K/mm3 (4.4-11.0)
[2024-12-30 16:07] LABS: Anion Gap 14 (5-15); BUN 16 mg/dL (4-19); BUN/Creat Ratio 16.5 RATIO (10-20); Calcium,Total 10.7 mg/dL (7.6-11.0); Carbon Dioxide 23.1 mmol/L (21.0-32.0); Chloride 100 mmol/L (98-108); Estimated Creatinine Clearance 86.71 ml/min (50-250); Glucose 191 mg/dL (70-99); Potassium 4.0 mmol/L (3.3-5.1); Pro- Brain NATRIURETIC PEPTIDE 1962 pg/mL (<=900); Troponin T High Sensitivity 74 ng/L (<=22)
--- NOTE | 2024-12-30 17:00 | RAD_ITS ---
PROCEDURE: CHEST PA AND LATERAL 12/30/2024 REASON FOR EXAM: SOB TECHNIQUE: Procedure Code: RADCXR Modality: DX Procedure: CHEST PA AND LATERAL COMPARISON: 09/11/2024 FINDINGS: Hardware: None. Heart: Heart size is mildly enlarged. Mediastinum: The mediastinal contour is stable. Lungs: Scattered right airspace opacities. Trace bibasilar pleural effusions. Mild diffuse pulmonary vascular congestion. Bones: The bones are unremarkable. RAD/Chest PA and Lateral IMPRESSION: 1. Scattered right airspace opacities and trace bibasilar pleural effusions. 2. Mild cardiomegaly and mild pulmonary vascular congestion. Reading Location[facility]
[2024-12-30 17:17] LABS: Troponin T High Sens 2 HR 77 ng/L (<=22)
[2024-12-30 18:36] LABS: Prothrombin Time (Protime)PT. 20.5 SECONDS (11.7-14.9)
[2024-12-30 18:37] LABS: Partial Thromboplast Time 36.7 Seconds (24.1-36.2)
--- OUTSIDE RECORDS SUMMARY | 2024-12-30 19:25 | XMS RPT_ITS | CCD ---
Author Organization [facility] Care Team Providers Care Plastic Production Machine Setter Name Role Phone [facility], Sunita Foleychina Primary Care Pro vider [facility], Waynekaylyn Whitten Referring Provid er Dr. Aly Ann Attending Provider [phone] [facility], Sunita Whitten Primary Care Pro vider [facility], Waynekaylyn Whitten Referring Provid er Dr. Aly Ann Attending Provider [phone] [facility], Sunita Whitten Attending Provid er EARL Contreras Attending Provider EARL Contreras Referring Provider EARL Contreras Other Provider [phone] Dr. Bari Goldstein Attending Provider Dr. Lavell Huerta Attending Provider [facility], Sunita Whitten Primary Care Pro vider Dr. Bari Goldstein Attending Provider [phone] Mao VSC, MUSIC THERAPY SPECIALIST-C Lawanda Referring Provider [facility], Sunita Yordy Primary Care Pro vider [facility], Sunita Whitten Referring Provid er EARL Contreras Attending Provider Jeyson MUSIC THERAPY SPECIALIST-CEvelia Primary Care Provider Jeyson MUSIC THERAPY SPECIALIST-CEvelia Attending Provider Susan Contreras Attending Provider Susan Contreras Referring Provider Dr. Carlos Wang DO Attending Provider Kathleen SOL, Dr. Gonzalez Emergency Provider Vanessa SOL, Dr. White Emergency Provider Darling SOL, Dr. Gaspar Admit Provider Dr. Hubert Hastings DO Attending Provider Dr. Hubert Hastings DO Referring Provider Jeyson MUSIC THERAPY SPECIALIST-C, Evelia Primary Care Provider Jeyson MUSIC THERAPY SPECIALIST-C, Evelia Attending Provider Susan Contreras Attending Provider Susan Contreras Referring Provider Dr. Carlos Wang DO Attending Provider Dr. Carlos Wang DO Emergency Provider Vanessa SOL, Dr. White Emergency Provider Darling SOL, Dr. Gaspar Admit Provider Dr. Hubert Hastings DO Referring Provider Darling SOL, Dr. Gaspar Other Provider Dr. Luis Nieto DO Attending Provider Dr. Nba Seth MD Other Provider Dr. Nba Seth MD Attending Provider Brian MAYEN, Dr. Mark Attending Provider Jeyson MUSIC THERAPY SPECIALIST-C, Evelia Primary Care Provider Dr. Luis Nieto DO Other Provider Sofya MUSIC THERAPY SPECIALIST-C, Geoffrey Attending Provider Brit MAYEN, Dr. Curly Nowak Attending Provider Dr. Yogi Lind MD Attending Provider Dr. Yogi Lind MD Referring Provider Jeyson MUSIC THERAPY SPECIALIST-C, Evelia Referring Provider Tanner Sharpe Attending Provider Beam, [place] Primary Care Provider Unavailabl e Susan Contreras Attending Provider Susan Contreras Referring Provider [facility], Wayne Yordy Referring Provid er Susan Contreras Attending Physician Susan Contreras Referring Provider Beam, [place] Primary Care Physician Unavailab le Beam MUSIC THERAPY SPECIALIST-C, Geoffrey Attending Physician Beam, Linwood Referring Provider Unavailable Beam, [place] Primary Care Unavailable Susan Contreras Attending Unavail able Susan Contreras Referring Unavail able Jeyson [facility], Evelia Primary Care Unavailabl e Curly Perea V Attending Unavailable Susan Contreras Referring Unavail able Susan Contreras Attending Unavail able Beam, [place] Primary Care Unavailable Beam, [place] Primary Care Unavailable Beam VSC, Geoffrey Attending Unavailable Beam, [place] Primary Care Unavailable Susan Contreras Referring Unavail able Susan Contreras Attending Unavail able Beam, [place] Primary Care Unavailable Susan Contreras Referring Unavail able Susan Contreras Attending Unavail able Beam, [place] Primary Care Unavailable Susan Contreras Attending Unavail able Susan Contreras Referring Unavail able Jeyson VSC, Evelia Primary Care Unavailabl e Hubert Hastings Consulting Unavailable Hubert Hastings Admitting Unavailable Hubert Hastings Referring Unavailable Nba Seth Attending Unavailable Nba Seth Consulting Unavailable Luis Nieto Attending Unavailable Luis Nieto Consulting Unavailable Jeyson VSC, Evelia Primary Care Unavailabl e Deedee Torres Attending Unavailabl [facility], [facility] Referring Unavailable Susan Contreras Attending Unavail able Beam, [place] Primary Care Unavailable Beam, [place] Referring Unavailable Beam, [place] Primary Care Unavailable Susan Contreras Attending Unavail able Beam, [place] Primary Care Unavailable Jyeson VSC, [facility] Referring Unavailabl e Tanner Rain Attending Unavailable [facility], [facility] Primary Care Unavailabl e Beam [facility]ending Unavailable [facility], [facility] Primary Care Unavailabl e [facility], Evelia Attending Unavailabl e [facility], [facility] Primary Care Unavailabl e Samarshall, Yogi Referring Unavailable Samarshall, Yogi Attending Unavailable Hubert Hastings Attending Unavailable [facility], [facility] Unavailabl e Susan Contreras Referring Unavail able Susan Contreras Attending Unavail able [facility], [facility] Unavailabl e Carlos Wang Attending Unavailable [facility], [facility] Unavailterrie e Hubert Hastings Consulting Unavailable Hubert Hastings Admitting Unavailable Hubert Hastings Referring Unavailable Luis Nieto Attending Unavailable Nba Seth Consulting Unavailable Allergies Allergy Classification Reported Allergen(s) Allergy Type Date of Onset Reaction(s) Facility (15 sources) amLODIPine Drug Allergy 01-09-2022 Other [facility] Comment on above: Dizziness, blacking out (15 sources) benazepril Drug Allergy 01-09-2022 [facility] Comment on above: Dizziness, blacking out (1 source) Furosemide Drug Allergy 11-25-2024 Pain in legs [facility] (1 source) amLODIPine Drug Allergy 11-25-2024 [facility] Repository (1 source) benazepril Drug Allergy 11-25-2024 [facility] Repository (1 source) Furosemide Drug Allergy 11-25-2024 [facility] Repository Medications Current Medications Medication Drug Class(es) Dates Sig (Normalized) Sig (Original) acetaminophen 500 mg oral capsule (17 sources) Start: 11-08-2021 take 1 capsule by mouth every six hours as needed for pain Acetaminophen 500 mg capsule Active 500 mg PO EVERY 6 HOURS as needed for fever or pain November 08, 2021 12:00am Complies with drug therapy cholecalciferol 1.25 mg oral capsule (13 sources) Vitamin D Start: 03-08-2022 take 1 capsule by mouth every week Cholecalciferol (Vitamin D3) 1,250 mcg (50,000 unit) capsule Active 1250 ug PO EVERY WEEK March 08, 2022 1:00am Complies with drug therapy ferrous sulfate 325 mg extended release oral tablet (20 sources) Start: 11-08-2021 take 0.3 capsule by mouth every week Ferrous Sulfate 325 mg (65 mg iron) capsule, extended release Active 325 mg PO .3 x week November 08, 2021 2:09pm Complies with drug therapy Start: 11-08-2021 Ferrous Sulfat e Active 325 MG PO .3 x week November 08, 2021 2:09pm Start: 01-26-2021 End: 11-08-2021 take 1 capsule by mouth once daily Ferrous Sulfate 325 mg (65 mg iron) Capsule, Extended Release Discontinued 325 mg PO DAILY January 26, 2021 1:00am November 08, 2021 2:10pm Start: 01-26-2021 End: 11-08-2021 take 325 mg by mouth once daily Ferrous Sulfate Discon tinued 325 MG PO DAILY January 26, 2021 1:00am November 08, 2021 2:10pm glimepiride 4 mg oral tablet (20 sources) Sulfonylurea Start: 02-07-2021 take 1 tablet by mouth once daily Glimepiride 4 mg tablet Active 4 mg PO DAILY 60 0 February 07, 2021 1:00am Complies with drug therapy Start: 01-26-2021 End: 02-07-2021 take 2 tablets by mouth once daily Glimepiride 4 mg tablet Discontinued 8 mg PO DAILY January 26, 2021 1:00am February 07, 2021 10:17am Start: 01-26-2021 End: 02-07-2021 take 8 mg by mouth once daily Glimepiride Discontinued 8 MG PO DAILY January 26, 2021 1:00am February 07, 2021 10:17am 3 ml insulin glargine 100 unt/ml pen injector (20 sources) Insulin Analog Start: 01-09-2022 Insulin Glargi ne (Lantus Solostar U-100 Insulin) 100 unit/mL (3 mL) insulin pen Active 35 U SC EVERY EVENING January 09, 2022 3:03pm Complies with drug therapy Start: 02-07-2021 End: 01-09-2022 Insulin Glargine (Lantus Ashley ostar U-100 Insulin) 100 unit/mL (3 mL) Insulin Pen Discontinued 35 U SC WITH BREAKFAST 0 0 February 07, 2021 1:00am January 09, 2022 3:04pm metFORMIN hydrochloride 500 mg oral tablet (20 sources) Biguanide Start: 11-25-2024 take 1 tablet by mouth once daily Metformin 500 mg tablet Active 500 mg PO daily November 25, 2024 12:00am Complies with drug therapy Start: 09-14-2022 End: 07-07-2024 take 1 tablet by mouth once daily Metformin 500 mg tablet Discontinued 500 mg PO DAILY September 14, 2022 12:00am July 07, 2024 3:07pm Start: 01-26-2021 End: 02-07-2021 take 1 tablet by mouth twice daily Metformin 1,000 mg tablet Discontinued 1000 mg PO TWICE A DAY January 26, 2021 1:00am February 07, 2021 10:09am pravastatin sodium 20 mg oral tablet (19 sources) HMG-CoA Reductase Inhibitor Start: 01-26-2021 take 1 tablet by mouth once daily Pravastatin 20 mg tablet Active 20 mg PO DAILY January 26, 2021 1:00am Complies with drug therapy spironolactone 25 mg oral tablet (17 sources) Aldosterone Antagonist Start: 11-08-2021 take 1 tablet by mouth once daily Spironolactone 25 mg tablet Active 25 mg PO DAILY November 08, 2021 12:00am Complies with drug therapy tamsulosin hydrochloride 0.4 mg oral capsule (12 sources) alpha-Adrenergic Rudy Start: 09-14-2022 take 1 capsule by mouth once daily Tamsulosin (Flomax) 0.4 mg capsule Active 0.4 mg PO DAILY September 14, 2022 12:00am Complies with drug therapy vitamin b12 1 mg oral capsule (17 sources) Vitamin B12 Start: 11-08-2021 take 1 capsule by mouth once daily Cyanocobalamin (Vitamin B-12) 1,000 mcg capsule Active 1000 ug PO DAILY November 08, 2021 12:00am Complies with drug therapy warfarin sodium 4 mg oral tablet (20 sources) Vitamin K Antagonist Start: 09-22-2024 take 0.5 tablet by mouth once daily Warfarin 4 mg tablet Active 4 mg PO .COMPLEX Protocol: Adjustment Start Date: Saturday11/25/24INR Value: 2.2INR Date: 11/25/24Recheck Date: 12/25/24 Condition: Saturday Dose/Route: 4 mg Instructions: 1 x 4 mg tablet Condition: Saturday Dose/Route: 2 mg Instructions: 0.5 x 4 mg tablets Condition: Saturday Dose/Route: 2 mg Instructions: 0.5 x 4 mg tablets Condition: Saturday Dose/Route: 2 mg Instructions: 0.5 x 4 mg tablets Condition: Dose/Route: 2 mg Instructions: 0.5 x 4 mg tablets Condition: Saturday Dose/Route: 4 mg Instructions: 1 x 4 mg tablet Condition: Saturday Dose/Route: 4 mg Instructions: 1 x 4 mg tablet 120 3 September 22, 2024 1:43pm 4 mg orally daily except 1/2 tablet (2mg) on , , Saturday; or as directed. Please give 180 tablets for dose changes. Please contact the information source for Protocol details. Complies with drug therapy Start: 04-25-2024 End: 09-22-2024 Warfarin (Jantoven) 6 mg tab let Discontinued 6 mg PO FR Protocol: Adjustment Start Date: Saturday09/09/24INR Value: 3.6INR Date: 09/09/24Recheck Date: 09/16/24 Condition: Saturday Dose/Route: 4 mg Instructions: 1 x 4 mg tablet Condition: Saturday Dose/Route: 4 mg Instructions: 1 x 4 mg tablet Condition: Saturday Dose/Route: 4 mg Instructions: 1 x 4 mg tablet Condition: Saturday Dose/Route: 2 mg Instructions: 0.5 x 4 mg tablets Condition: Dose/Route: 2 mg Instructions: 0.5 x 4 mg tablets Condition: Saturday Dose/Route: 2 mg Instructions: 0.5 x 4 mg tablets Condition: Saturday Dose/Route: 4 mg Instructions: 1 x 4 mg tablet April 25, 2024 1:00am September 22, 2024 1:44pm blood Please contact the information source for Protocol details. Start: 09-13-2023 End: 09-22-2024 Warfarin 4 mg tablet Discont inued 4 mg PO SUMOTUWETHSA Protocol: Adjustment Start Date: Saturday09/09/24INR Value: 3.6INR Date: 09/09/24Recheck Date: 09/16/24 Condition: Saturday Dose/Route: 4 mg Instructions: 1 x 4 mg tablet Condition: Saturday Dose/Route: 4 mg Instructions: 1 x 4 mg tablet Condition: Saturday Dose/Route: 4 mg Instructions: 1 x 4 mg tablet Condition: Saturday Dose/Route: 2 mg Instructions: 0.5 x 4 mg tablets Condition: Dose/Route: 2 mg Instructions: 0.5 x 4 mg tablets Condition: Saturday Dose/Route: 2 mg Instructions: 0.5 x 4 mg tablets Condition: Saturday Dose/Route: 4 mg Instructions: 1 x 4 mg tablet 120 September 22, 2024 9:03am September 22, 2024 1:44pm 1 tablet 4 days a week and 1.5 tablets 3 days a week or as directed Please contact the information source for Protocol details. Start: 11-21-2021 End: 09-13-2023 take 1 tablet by mouth once daily Warfarin 4 mg tablet Discontinued 4 mg PO DAILY Protocol: Adjustment Start Date: Saturday09/10/23INR Value: 2.8INR Date: 09/10/23Recheck Date: 10/10/23 Condition: Saturday Dose/Route: 4 mg Instructions: 1 x 4 mg tablet Condition: Saturday Dose/Route: 6 mg Instructions: 1.5 x 4 mg tablets Condition: Saturday Dose/Route: 6 mg Instructions: 1.5 x 4 mg tablets Condition: Saturday Dose/Route: 4 mg Instructions: 1 x 4 mg tablet Condition: Dose/Route: 4 mg Instructions: 1 x 4 mg tablet Condition: Saturday Dose/Route: 6 mg Instructions: 1.5 x 4 mg tablets Condition: Saturday Dose/Route: 4 mg Instructions: 1 x 4 mg tablet 90 December 24, 2022 1:41pm September 13, 2023 2:56pm Please contact the information source for Protocol details. Completed/Discontinued Medications Medication Drug Class(es) Dates Sig (Normalized) Sig (Original) apixaban 5 mg oral tablet (17 sources) Factor Xa Inhibitor Start: 11-08-2021 End: 11-21-2021 take 1 tablet by mouth twice daily Apixaban (Eliquis) 5 mg tablet Discontinued 5 mg PO TWICE A DAY 60 November 08, 2021 12:00am November 21, 2021 8:43am aspirin 325 mg delayed release oral tablet (17 sources) Platelet Aggregation Inhibitor, Nonsteroidal Anti-inflammatory Drug Start: 11-08-2021 End: 11-08-2021 take 2 tablets by mouth once daily Aspirin 325 mg tablet,delayed release (DR/EC) Discontinued 650 mg PO DAILY November 08, 2021 12:00am November 08, 2021 2:37pm Start: 11-08-2021 End: 11-08-2021 take 650 mg by mouth once daily Aspirin Discontinued 650 MG PO DAILY November 08, 2021 12:00am November 08, 2021 2:37pm furosemide 40 mg oral tablet (16 sources) Loop Diuretic Start: 04-28-2024 End: 09-30-2024 take 1 tablet by mouth once daily as needed Furosemide 40 mg tablet Discontinued 40 mg PO EVERY MORNING 90 3 September 16, 2024 4:13pm September 30, 2024 7:57am Take PRN for fluid overload (shortness of breath or swelling). Contact audit mgr if having these symptoms and directions will be provided hydroCHLOROthiazide 25 mg oral tablet (20 sources) Thiazide Diuretic Start: 11-08-2021 End: 11-08-2021 take 1 tablet by mouth once daily Hydrochlorothiazide 25 mg tablet Discontinued 25 mg PO DAILY November 08, 2021 12:00am November 08, 2021 2:37pm Start: 01-26-2021 End: 02-07-2021 take 1 tablet by mouth once daily Hydrochlorothiazide 50 mg tablet Discontinued 50 mg PO DAILY January 26, 2021 1:00am February 07, 2021 10:08am 3 ml insulin lispro 100 unt/ml pen injector (20 sources) Insulin Analog Start: 02-07-2021 End: 03-08-2022 Insulin Lispro (Humalog Kwikpen Insulin) 100 unit/mL Insulin Pen Discontinued 5 U SC WITH BREAKFAST 0 30 0 February 07, 2021 1:00am March 08, 2022 10:10am lisinopril 20 mg oral tablet (19 sources) Angiotensin Converting Enzyme Inhibitor Start: 01-26-2021 End: 02-07-2021 take 1 tablet by mouth twice daily Lisinopril 20 mg tablet Discontinued 20 mg PO TWICE A DAY January 26, 2021 1:00am February 07, 2021 10:08am metoprolol tartrate 50 mg oral tablet (20 sources) beta-Adrenergic Rudy Start: 12-20-2021 End: 05-04-2024 take 1 tablet by mouth twice daily Metoprolol Tartrate 50 mg tablet Discontinued 50 mg PO TWICE A DAY 180 3 January 07, 2023 11:49am May 04, 2024 3:13pm Start: 02-07-2021 End: 12-20-2021 take 1 tablet by mouth twice daily Metoprolol Tartrate 25 mg Tablet Discontinued 25 mg PO TWICE A DAY 0 0 February 07, 2021 1:00am December 20, 2021 1:53pm Start: 01-26-2021 End: 02-07-2021 take 1 tablet by mouth twice daily Metoprolol Tartrate 100 mg tablet Discontinued 100 mg PO TWICE A DAY January 26, 2021 1:00am February 07, 2021 10:09am potassium chloride 20 meq extended release oral tablet (17 sources) Start: 11-08-2021 End: 11-08-2021 take 1 tablet by mouth once daily Potassium Chloride 20 mEq tablet extended release Discontinued 20 meq PO DAILY November 08, 2021 12:00am November 08, 2021 2:37pm Problems Active Problems Problem Classification Problem Date Documented Da te Episodic/Chronic Acute and unspecified renal failure (19 sources) Uremia; Translations: [Unspecified kidney failure] 02-15-2021 Chronic Acute and unspecified renal failure (20 sources) Injury of kidney; Translations: [Acute kidney failure, unspecified] 11-07-2021 Episodic Acute myocardial infarction (10 sources) Myocardial infarction; Translations: [Non-ST elevation (NSTEMI) myocardial infarction] 04-25-2024 Chronic Cardiac dysrhythmias (20 sources) Atrial fibrillation; Translations: [Unspecified atrial fibrillation] Onset: 12-18-2024 Chronic Comment on above: 01/2021, 06/2021 Chronic kidney disease (17 sources) Chronic kidney disease; Translations: [Chronic kidney disease, unspecified] 11-08-2021 Chronic Diabetes mellitus with complications (20 sources) Hypoglycemia; Translations: [Type 2 diabetes mellitus with hypoglycemia without coma] Onset: 01-30-2024 02-15-2021 Chronic Diabetes mellitus without complication (19 sources) Diabetes mellitus; Translations: [Type 2 diabetes mellitus without complications] Onset: 12-15-2024 11-07-2021 Chronic Disorders of lipid metabolism (17 sources) Hyperlipidemia; Translations: [Hyperlipidemia, unspecified] 11-07-2021 Chronic Essential hypertension (20 sources) Essential hypertension; Translations: [Essential (primary) hypertension] Chronic Fluid and electrolyte disorders (20 sources) Hyponatremia; Translations: [Hypo-osmolality and hyponatremia] 02-15-2021 Episodic Headache; including migraine (17 sources) Frequent headache; Translations: [Frequent headaches] 11-08-2021 Episodic Heart valve disorders (14 sources) Aortic valve stenosis; Translations: [Nonrheumatic aortic (valve) stenosis] 07-07-2024 Chronic Heart valve disorders (10 sources) Heart murmur; Translations: [Cardiac murmur, unspecified] 09-13-2023 Episodic Hypertension with complications and secondary hypertension (1 source) Hypertensive heart and chronic kidney disease with heart failure and stage 1 through stage 4 chronic kidney disease, or unspecified chronic kidney disease; Translations: [Hypertensive heart and chronic kidney disease with heart failure and stage 1 through stage 4 chronic kidney disease, or unspecified chronic kidney disease] Onset: 05-27-2024 Chronic Nutritional deficiencies (19 sources) Deficiency of macronutrients; Translations: [Unspecified severe protein-calorie malnutrition] 11-07-2021 Chronic Other aftercare (17 sources) Long-term current use of anticoagulant; Translations: [manager terminal (current) use of anticoagulants] 11-21-2021 Episodic Other aftercare (1 source) detention (current) use of anticoagulants; Translations: [detention (current) use of anticoagulants] Onset: 12-18-2024 Episodic Other circulatory disease (19 sources) Transient hypotension; Translations: [Hypotension, unspecified] 02-15-2021 Episodic Other lower respiratory disease (17 sources) Dyspnea on exertion; Translations: [Other forms of dyspnea] 11-08-2021 Episodic Other lower respiratory disease (13 sources) Restrictive lung disease; Translations: [Other disorders of lung] 03-08-2022 Episodic Other lower respiratory disease (1 source) Other disorders of lung; Translations: [Other diseases of lung, not elsewhere classified] 03-08-2022 Episodic Other lower respiratory disease (19 sources) Dyspnea; Translations: [Dyspnea, unspecified] 04-25-2024 Episodic Other lower respiratory disease (10 sources) Hypoxia; Translations: [Hypoxemia] 04-15-2024 Episodic Other nutritional; endocrine; and metabolic disorders (13 sources) Obesity; Translations: [Obesity, unspecified] 03-08-2022 Chronic Other nutritional; endocrine; and metabolic disorders (1 source) Obesity, unspecified; Translations: [Obesity, unspecified] 03-08-2022 Chronic Other screening for suspected conditions (not mental disorders or infectious disease) (14 sources) Imaging of thorax abnormal; Translations: [Abnormal findings on diagnostic imaging of other specified body structures] 09-14-2022 Chronic Other screening for suspected conditions (not mental disorders or infectious disease) (10 sources) Raised cardiac enzyme or marker; Translations: [Other specified abnormal findings of blood chemistry] 04-25-2024 Episodic Pulmonary heart disease (20 sources) Pulmonary hypertension; Translations: [Pulmonary hypertension, unspecified] Onset: 05-14-2024 Chronic Septicemia (except in labor) (20 sources) Sepsis due to urinary tract infection; Translations: [Sepsis, unspecified organism] 02-15-2021 Episodic Unclassified (5 sources) Appointment is with Linwood Cowart N.P. Past or Other Problems Problem Classification Problem Date Documented Da te Episodic/Chronic Other lower respiratory disease (1 source) Dyspnea, unspecified; Translations: [Dyspnea, unspecified] Onset: 04-22-2024 Episodic Pleurisy; pneumothorax; pulmonary collapse (20 sources) Pleural effusion; Translations: [Pleural effusion, not elsewhere classified] Onset: 04-30-2024 04-25-2024 Episodic Results Test Name Value Interpretation Reference Range Facility Absolute lymphocyte countOrd ered By: Geoffrey Cowart on 11-25-2024 Lymphocytes Auto (Unsp spec) [#/Vol] 1.10 10*3/uL 0.83-4.51 [facility] Absolute neutrophil countOrd ered By: Geoffrey Cowart on 11-25-2024 Neutrophils (Bld) [#/Vol] 8.0 10*3/uL High 2.0-7.7 [facility] Automated lymphocyte count a s percentage of total leukocytesOrdered By: Geoffrey Cowart on 11-25-2024 Lymphocytes/100 WBC Auto (Unsp spec) 10.9 % Low 19-41 [facility] Basophil percentageOrdered B y: Geoffrey Cowart on 11-25-2024 Basophils/100 WBC (Bld) 0.4 % 0-1 [facility] CBC W/Diff, Automatedon 10-0 8-2024 Absolute Lymph 1.10 X10 3/uL Normal 0.83-4.51 [facility] Comment on above: Performed By: #### L 500.2500, L300.3900, L001.0705, L504.2610, L100.0100 #### [facility] [address] [place], [address] Absolute Neut 8.0 X10 3/uL High 2.0-7.7 [facility] Comment on above: Performed By: #### L 500.2500, L300.3900, L001.0705, L504.2610, L100.0100 #### [facility] [address] [place], [address] Basophils/100 WBC (Bld) 0.4 % Normal 0-1 [facility] Comment on above: Performed By: #### L 500.2500, L300.3900, L001.0705, L504.2610, L100.0100 #### [facility] [address] [place], [address] Eosinophils/100 WBC (Bld) 1.3 % Normal 0-5 [facility] Comment on above: Performed By: #### L 500.2500, L300.3900, L001.0705, L504.2610, L100.0100 #### [facility] [address] [place], [address] Erythrocyte distribution width (RBC) [Ratio] 14.5 % Normal 11.6-14.6 [facility] Comment on above: Performed By: #### L 500.2500, L300.3900, L001.0705, [id number], L100.0100 #### [facility] [address] [place], [address] Hematocrit (Bld) [Volume fraction] 37.8 % Low 40-54 [facility] Comment on above: Performed By: #### L 500.2500, L300.3900, L001.0705, L504.2610, L100.0100 #### [facility] [address] [place], [address] Hemoglobin (Bld) [Mass/Vol] 12.5 g/dL Low 13.0-16.5 [facility] Comment on above: Performed By: #### L 500.2500, L300.3900, L001.0705, L504.2610, L100.0100 #### [facility] [address] [place], [address] IG% 0.400 Normal 0.0-0.9 [facility] Comment on above: Result Comment: IG% - Immature Granulocytes (promyelocytes, myelocytes and metamyelocytes) > 1% indicates that a LEFT SHIFT is Present. Performed By: #### L 500.2500, L300.3900, L001.0705, L504.2610, L100.0100 #### [facility] [address] [place], [address] Lymphocytes/100 WBC (Bld) 10.9 % Low 19-41 [facility] Comment on above: Performed By: #### L 500.2500, L300.3900, L001.0705, L504.2610, L100.0100 #### [facility] [address], [address] MCH (RBC) [Entitic mass] 28.2 pg Normal 27.0-32.0 [facility] Comment on above: Performed By: #### L 500.2500, L300.3900, L001.0705, L504.2610, L100.0100 #### [facility] [address] [place], [address] MCHC (RBC) [Mass/Vol] 33.1 g/dL Normal 32-36 [facility] Comment on above: Performed By: #### L 500.2500, L300.3900, L001.0705, L504.2610, L100.0100 #### [facility] [address] [place], [address] MCV (RBC) [Entitic vol] 85.1 fL Normal 80-94 [facility] Comment on above: Performed By: #### L 500.2500, L300.3900, L001.0705, L504.2610, L100.0100 #### [facility] [address] [place], [address] Monocytes/100 WBC (Bld) 8.0 % Normal 0-10 [facility] Comment on above: Performed By: #### L 500.2500, L300.3900, L001.0705, L504.2610, L100.0100 #### [facility] [address] [place], [address] Neutrophils/100 WBC (Bld) 79.0 % High 47-70 [facility] Comment on above: Performed By: #### L 500.2500, L300.3900, L001.0705, L504.2610, L100.0100 #### [facility] [address] [place], [address] Nucleated RBC (Bld) [#/Vol] 0 10*3/uL Normal 0-5 [facility] Comment on above: Performed By: #### L 500.2500, L300.3900, L001.0705, L504.2610, L100.0100 #### [facility] [address] [place], [address] Platelet mean volume (Bld) [Entitic vol] 9.7 fL Normal 6.2-12.0 [facility] Comment on above: Performed By: #### L 500.2500, L300.3900, L001.0705, L504.2610, L100.0100 #### [facility] [address] [place], [address] Platelets (Bld) [#/Vol] 233 10*3/uL Normal 150-450 [facility] Comment on above: Performed By: #### L 500.2500, L300.3900, L001.0705, L504.2610, L100.0100 #### [facility] [address] [place], [address] RBC (Bld) [#/Vol] 4.44 10*6/uL Low 4.6-6.2 [facility] Comment on above: Performed By: #### L 500.2500, L300.3900, L001.0705, L504.2610, L100.0100 #### [facility] [address] [place], [address] RDW SD 44.4 fl High 35.1-43.9 [facility] Comment on above: Performed By: #### L 500.2500, L300.3900, L001.0705, L504.2610, L100.0100 #### [facility] [address] [place], [address] WBC (Bld) [#/Vol] 10.1 10*3/uL Normal 4.4-11.0 [facility] Comment on above: Performed By: #### L 500.2500, L300.3900, L001.0705, L504.2610, L100.0100 #### [facility] [address] [place], [address] Cardiology Visit Reporton Cardiology Visit Report [facility] [address] [place] [address] OFFICE VISIT Date of Service: 11/25/24 MR#: [id number] Acct: [id number] Name: BLAYNE MORALES Rep #: [id number] : 1950 Provider: EARL Aguila Age/Sex: 74/M Location: [facility] [place] Status: Signed HPI HPI History of Present Illness Details: The patient is a 74-year-old male with paroxysmal atrial fibrillation, HTN, aortic stenosis, and pulmonary HTN, presenting for follow-up. He reports no new or concerning symptoms since his last visit. He was recently prescribed furosemide, but after 2 days developed numbness in his toes and fingers, throat discomfort, bilateral pain, perceived kidney discomfort, and severe headaches. He discontinued the medication and reports that it took 3???4 days for these symptoms to resolve. He has since resumed spironolactone, which he has been taking for several years to manage lower extremity edema, and reports no current swelling in his legs. He reports chronic, stable dyspnea that has been unchanged for years. He has gained 10???12 lbs since his last visit and was already overweight prior to this recent weight gain. He uses PAP therapy nig htly and is able to sleep in bed. He denies palpitations. He is currently taking metoprolol, pravastatin, warfarin, and spironolactone. Intake Vital Signs 09/11/24 14:13 11/25/24 13:10 Height 5 ft 8 in 5 ft 8 in Weight: 243 lb BMI 36.9 BP 118/75 Blood Pressure Location Lt brachial Position Sitting Respiration 20 H Pulse 62 Pulse Source Monitor Pulse Oximetry (%) 93 Oxygen Delivery Method room air Intake Visit Reasons: 3 M Deposit Refund Clerk Required: No Accompanied by: Sister Is patient in pain?: No Allergies amlodipine (From Lotrel) Allergy (Severe, Verified 11/25/24 13:45) Other benazepril (From Lotrel) Allergy (Severe, Verified 11/25/24 13:45) Other furosemide Adverse Reaction (Intermediate, Verified 11/25/24 13:45) Pain in legs Medications ???Medication ???Instructions ???Recorded ???Confirmed ???Type pravastatin 20 mg tablet 20 mg PO DAILY 01/26/21 11/25/24 H istory glimepiride 4 mg tablet 4 mg PO DAILY #60 tabs 02/07/21 Rx acetaminophen 500 mg capsule 500 mg PO Q6H PRN fever or pain 11/25/24 History cyanocobalamin (vitamin B-12) 1,000 mcg PO DAILY 11/08/21 History 1,000 mcg capsule ferrous sulfate 325 mg (65 mg 325 mg PO .3 x week 11/08/2111/25 History iron) capsule,extended release spironolactone 25 mg tablet 25 mg PO DAILY 11/08/21 11/25/24 H istory insulin glargine 100 unit/mL (3 35 unit subcut QPM 01/09/22 History mL) subcutaneous pen (Lantus Solostar U-100 Insulin) cholecalciferol (vitamin D3) 1,250 1,250 mcg PO QWEEK 03/08/2210/12 History mcg (50,000 unit) capsule tamsulosin 0.4 mg capsule (Flomax) 0.4 mg PO DAILY 09/14/22 5 History metoprolol tartrate 50 mg tablet 50 mg PO BID #180 tabs 05/04/24 Rx warfarin 4 mg tablet 4 mg PO .COMPLEX #120 tabs 5 11/25/24 Rx metformin 500 mg tablet 500 mg PO QDAY 11/25/24 11/25/24 H istory Ejection fraction %: 70 Have you fallen in the past year?: No PFSH Medical History (Updated 09/11/24 @ 14:40 by Susan ELLIOTT, PA) Pleural effusion on right Alcohol abuse Sleep apnea Cardiac murmur Chronic kidney disease (CKD) Frequent headaches Hyperlipidemia Paroxysmal atrial fibrillation Atrial fibrillation with rapid ventricular response (01/2021) Essential hypertension Severe protein-calorie malnutrition HELENA (acute kidney injury) Abrasion of cornea, right Diabetes Surgical History History of cataract surgery Social History Smoking Status: Former smoker ROS Const Const: Positive for fatigue and weakness; Negative for headache(s) Eyes Eyes: Negative for change in vision ENT ENT: Positive for balance problems (Pt presents today in a wheelchair); Negative for headache(s), dizziness or Nosebleed/epistaxis Cardio Chest Pain: No Palpitations: No Edema: None Resp Respiratory: Positive for SOB with activity and SOB at rest GI GI: Negative nausea, vomiting, heartburn or bright, red blood in stools : Negative for hematuria Musc Musc: Positive for balance problems (Pt presents today in a wheelchair) Neuro Neuro: Positive for weakness; Negative for dizziness, lightheadedness, syncope or headache(s) Endo Endo: Positive for fatigue Cardiology Exam Const Appearance: cooperative, comfortable, no acute distress and well developed; Negative diaphoretic or ill appearing Nutritional Appearance: overweight Orienta (more content not included)... Normal [facility] Comprehensive Metabolic Prof ilon 11-25-2024 Albumin [Mass/Vol] 4.1 g/dL Normal 3.4-4.8 [facility] Comment on above: Performed By: #### L 500.2500, L300.3900, L001.0705, L504.2610, L100.0100 #### [facility] [address] [place], [address] Albumin/Globulin [Mass ratio] 1.2 {ratio} Normal 0.9-2.4 [facility] Comment on above: Performed By: #### L 500.2500, L300.3900, L001.0705, L504.2610, L100.0100 #### [facility] [address] [place], [address] ALK PHOS 97 U/L Normal 40-129 [facility] Comment on above: Performed By: #### L 500.2500, L300.3900, L001.0705, L504.2610, L100.0100 #### [facility] [address] [place], [address] ALT [Catalytic activity/Vol] 12 U/L Normal <=46 [facility] Comment on above: Performed By: #### L 500.2500, L300.3900, L001.0705, L504.2610, L100.0100 #### [facility] [address] [place], [address] AST [Catalytic activity/Vol] 20 U/L Normal <=37 [facility] Comment on above: Performed By: #### L 500.2500, L300.3900, L001.0705, L504.2610, L100.0100 #### [facility] [address] [place], [address] Bilirubin [Mass/Vol] 1.21 mg/dL Normal 0.00-1.30 [facility] Comment on above: Performed By: #### L 500.2500, L300.3900, L001.0705, L504.2610, L100.0100 #### [facility] [address] [place], [address] BUN/CRE 16.5 RATIO Normal 10-20 [facility] Comment on above: Performed By: #### L 500.2500, L300.3900, L001.0705, L504.2610, L100.0100 #### [facility] [address] [place], [address] Calcium [Mass/Vol] 10.3 mg/dL Normal 7.6-11.0 [facility] Comment on above: Performed By: #### L 500.2500, L300.3900, L001.0705, L504.2610, L100.0100 #### [facility] [address] [place], [address] Chloride [Moles/Vol] 103 mmol/L Normal 98-108 [facility] Comment on above: Performed By: #### L 500.2500, L300.3900, L001.0705, L504.2610, L100.0100 #### [facility] [address] [place], [address] CO2 [Moles/Vol] 23.2 mmol/L Normal 21.0-32.0 [facility] Comment on above: Performed By: #### L 500.2500, L300.3900, L001.0705, L504.2610, L100.0100 #### [facility] [address] [place], [address] Creatinine [Mass/Vol] 0.89 mg/dL Normal 0.70-1.20 [facility] Comment on above: Performed By: #### L 500.2500, L300.3900, L001.0705, L504.2610, L100.0100 #### [facility] [address] [place], [address] GAP 11 Normal 5-15 [facility] Comment on above: Performed By: #### L 500.2500, L300.3900, L001.0705, L504.2610, L100.0100 #### [facility] [address] [place], [address] GFR/1.73 sq M.predicted among non-blacks MDRD (S/P/Bld) [Vol rate/Area] 90 mL/min/{1.73_m2} Normal >60 [facility] Comment on above: Result Comment: mL/m in/1.73m2 CKD-EPI Creatinine Equation (2020) Performed By: #### L 500.2500, L300.3900, L001.0705, L504.2610, L100.0100 #### [facility] [address] [place], [address] Globulin (S) [Mass/Vol] 3.5 g/dL Normal 2.2-4.2 [facility] Comment on above: Performed By: #### L 500.2500, L300.3900, L001.0705, L504.2610, L100.0100 #### [facility] [address] [place], [address] Glucose [Mass/Vol] 52 mg/dL Low 70-99 [facility] Comment on above: Performed By: #### L 500.2500, L300.3900, L001.0705, L504.2610, L100.0100 #### [facility] [address] [place], [address] Potassium [Moles/Vol] 3.8 mmol/L Normal 3.3-5.1 [facility] Comment on above: Performed By: #### L 500.2500, L300.3900, L001.0705, L504.2610, L100.0100 #### [facility] [address] [place], [address] Sodium [Moles/Vol] 137 mmol/L Normal 133-145 [facility] Comment on above: Performed By: #### L 500.2500, L300.3900, L001.0705, L504.2610, L100.0100 #### [facility] [address] [place], [address] T PROT 7.6 g/dL Normal 5.9-8.4 [facility] Comment on above: Performed By: #### L 500.2500, L300.3900, L001.0705, L504.2610, L100.0100 #### [facility] [address] [place], [address] Urea nitrogen [Mass/Vol] 15 mg/dL Normal 4-19 [facility] Comment on above: Performed By: #### L 500.2500, L300.3900, L001.0705, L504.2610, L100.0100 #### [facility] [address] [place], [address] Eosinophil percentageOrdered By: Josebunabiln Beam on 11-25-2024 Eosinophils/100 WBC (Bld) 1.3 % 0-5 [facility] Erythrocyte distribution wid th ratioOrdered By: Zebulun Beam on 11-25-2024 Erythrocyte distribution width (RBC) [Ratio] 14.5 % 11.6-14.6 [facility] Erythrocyte distribution wid th standard deviationOrdered By: Zebulun Beam on 11-25-2024 Erythrocyte distribution width (RBC) [Ratio] 44.4 fl High 35.1-43.9 [facility] Hematocrit Auto (Bld) [Volum e fraction]Ordered By: Geoffrey Cowart on 11-25-2024 Hematocrit (Bld) [Volume fraction] 37.8 % Low 40-54 [facility] Hemoglobin measurementOrdere d By: Geoffrey Cowart on 11-25-2024 Hemoglobin (Bld) [Mass/Vol] 12.5 g/dL Low 13.0-16.5 [facility] Immature granulocytes/100 WB C Auto (Bld)Ordered By: yogesh Cowart on 11-25-2024 Immature granulocytes/100 WBC (Bld) 0.400 % 0.0-0.9 [facility] Comment on above: IG% - Immature Granu locytes (promyelocytes, myelocytes and metamyelocytes) > 1% indicates that a LEFT SHIFT is Present. International normalized rat io (INR) calculationOrdered By: Susan Biswas on 11-25-2024 INR Coag (Bld) [Relative time] 2.2 {INR} [facility] MCV (mean corpuscular volume ) determinationOrdered By: joserusty Cowart on 11-25-2024 MCV (RBC) [Entitic vol] 85.1 fL 80-94 [facility] Mean corpuscular hemoglobin (MCH) determinationOrdered By: [facility] Cowart on 11-25-2024 MCH (RBC) [Entitic mass] 28.2 pg 27.0-32.0 [facility] Mean corpuscular hemoglobin concentration (MCHC) determinationOrdered By: yogesh Cowart on 11-25-2024 MCHC (RBC) [Mass/Vol] 33.1 g/dL 32-36 [facility] Mean platelet volume determi nationOrdered By: yogesh Cowart on 11-25-2024 Platelet mean volume (Bld) [Entitic vol] 9.7 fL 6.2-12.0 [facility] Microalb:Creat Ratio,Random URon 11-25-2024 MALB:CREAT Normal <30 mg/g CRE [facility] Comment on above: Result Comment: KEYSHA ENT REFUSED URINE Performed By: #### L 500.2500, L300.3900, L001.0705, L504.2610, L100.0100 #### [facility] [address] [place], [place], [id number] MICROALBUMIN,UR Normal <20 mg/L [facility] Comment on above: Result Comment: KEYSHA ENT REFUSED URINE Performed By: #### L 500.2500, L300.3900, L001.0705, L504.2610, L100.0100 #### [facility] [address] [place], [place], [id number] UR CREAT Normal 39.00-259. 00 [facility] Comment on above: Result Comment: KEYSHA ENT REFUSED URINE Performed By: #### L 500.2500, L300.3900, L001.0705, L504.2610, L100.0100 #### [facility] [address] [place], [address] Monocyte percentageOrdered B y: Geoffrey Beam on 11-25-2024 Monocytes/100 WBC (Bld) 8.0 % 0-10 [facility] Neutrophil percentageOrdered By: Zebulun Beam on 11-25-2024 Neutrophils/100 WBC (Bld) 79.0 % High 47-70 [facility] Nucleated red blood cell per centageOrdered By: Zebulun Beam on 11-25-2024 Nucleated RBC/100 WBC (Bld) [Ratio] 0 % 0-5 [facility] Platelet countOrdered By: Ze bulun Sofya on 11-25-2024 Platelets (Bld) [#/Vol] 233 10*3/uL 150-450 [facility] Prothrombin Time w/INRon INR Coag (PPP) [Relative time] 2.2 {INR} Normal [facility] Comment on above: Order Comment: Comme nts: STANDING ORDER: Fax to [phone] Performed By: #### L 500.2500, L300.3900, L001.0705, L504.2610, L100.0100 #### [facility] [address] [place], [address] PT Coag (PPP) [Time] 24.7 s High 11.7-14.9 [facility] Comment on above: Order Comment: Comme nts: STANDING ORDER: Fax to [phone] Performed By: #### L 500.2500, L300.3900, L001.0705, L504.2610, L100.0100 #### [facility] [address] [place], [address] Prothrombin timeOrdered By: Susan Biswas on 11-25-2024 PT Coag (PPP) [Time] 24.7 s High 11.7-14.9 [facility] RBC Auto (Bld) [#/Vol]Ordere d By: Geoffrey Cowart on 11-25-2024 RBC (Bld) [#/Vol] 4.44 10*6/uL Low 4.6-6.2 [facility] Thyroid Stim Hormone (TSH)on 11-25-2024 TSH 1.140 uIU/mL Normal 0.300-4.20 0 [facility] Comment on above: Performed By: #### L 500.2500, L300.3900, L001.0705, L504.2610, L100.0100 #### [facility] [address] [place], [place], [address] White blood cell (WBC) count Ordered By: Geoffrey Cowart on 11-25-2024 WBC (Bld) [#/Vol] 10.1 10*3/uL 4.4-11.0 [facility] Cardiology Visit Reporton Cardiology Visit Report [facility] [address] [place], [place] [address] OFFICE VISIT Date of Service: 09/11/24 MR#: [id number] Acct: [id number] Name: TRINIDADBLAYNE Rep #: [id number] : 1950 Provider: EARL Aguila Age/Sex: 74/M Location: [facility] [place] Status: Signed HPI HPI History of Present Illness Details: Blayne Morales is a 74-year-old male who presents to the office today for acute visit as recommended from PCP. Patient was admitted to [facility] 04/25 - 04/28/2024 secondary to hypoglycemia and right-sided pleural effusion secondary to chronic congestive heart failure with preserved ejection fraction and severe pulmonary hypertension. Patient underwent right-sided thoracentesis removing 1.2 L. Patient was discharged on Lasix 40 mg daily. Echocardiogram performed 04/25/2024 demonstrated ejection fraction of 70%, moderately dilated right ventricle and severe pulmonary hypertension with systolic pressure 90 mmHg along with moderate aortic stenosis. Patient's cardiac history consist of paroxysmal atrial fibrillation, hypertension and aortic stenosis. Patient was admitted January 2021 with abdominal discomfort, HELENA and septic shock and was noted to be in atrial fibrillation with RVR. He was subsequently successfully discharged after he had an echocardiogram which demonstrated an ejection fraction of 55-60%. Patient does feel that his shortness of breath has been at baseline. He is able to lay in bed with his PAP. He does not have any lower extremity edema. He has not needed to use any extra Lasix. He does continue to have neck pain and balance problems. He does not have any chest pain. He does have ambulation problems and does ambulate with a cane. He does not have any bleeding issues. Intake Vital Signs 09/13/23 14:12 07/07/24 07:23 09/11/24 14:13 Height 5 ft 8 in 5 ft 8 in 5 ft 8 in Weight: 230 lb BMI 34.9 BP 118/72 Blood Pressure Location Lt brachial Position Sitting Respiration 18 Pulse 90 Pulse Source Monitor Pulse Oximetry (%) 90 Oxygen Delivery Method room air Intake Visit Reasons: 1 Y FU Deposit Refund Clerk Required: No Accompanied by: Sister Is patient in pain?: No Allergies amlodipine (From Lotrel) Allergy (Severe, Verified 09/11/24 14:17) Other benazepril (From Lotrel) Allergy (Severe, Verified 09/11/24 14:17) Other Medications ???Medication ???Instructions ???Recorded ???Confirmed ???Type pravastatin 20 mg tablet 20 mg PO DAILY 01/26/21 09/11/24 H istory glimepiride 4 mg tablet 4 mg PO DAILY #60 tabs 02/07/21 Rx acetaminophen 500 mg capsule 500 mg PO Q6H PRN fever or pain 09/11/24 History cyanocobalamin (vitamin B-12) 1,000 mcg PO DAILY 11/08/21 History 1,000 mcg capsule ferrous sulfate 325 mg (65 mg 325 mg PO .3 x week 11/08/2109/11 History iron) capsule,extended release spironolactone 25 mg tablet 25 mg PO DAILY 11/08/21 09/11/24 H istory insulin glargine 100 unit/mL (3 35 unit subcut QPM 01/09/22 History mL) subcutaneous pen (Lantus Solostar U-100 Insulin) cholecalciferol (vitamin D3) 1,250 1,250 mcg PO QWEEK 03/08/2208/19 History mcg (50,000 unit) capsule tamsulosin 0.4 mg capsule (Flomax) 0.4 mg PO DAILY 09/14/22 5 History warfarin 4 mg tablet 4 mg PO SUMOTUWETHSA 04/25/2408/19 History warfarin 6 mg tablet (Jantoven) 6 mg PO FR blood 04/25/24 09/11/24 History metoprolol tartrate 50 mg tablet 50 mg PO BID #180 tabs 05/04/24 Rx furosemide 40 mg tablet 40 mg PO .prn #20 tabs 07/08/24 Rx Ejection fraction %: 70 Have you fallen in the past year?: No PFSH Medical History (Updated 09/11/24 @ 14:40 by Susan Biswas PA, PA) Pleural effusion on right Alcohol abuse Sleep apnea Cardiac murmur Chronic kidney disease (CKD) Frequent headaches Hyperlipidemia Paroxysmal atrial fibrillation Atrial fibrillation with rapid ventricular response (01/2021) Essential hypertension Severe protein-calorie malnutrition HELENA (acute kidney injury) Abrasion of cornea, right Diabetes Surgical History History of cataract surgery Social History Smoking Status: Former smoker ROS Const Const: Positive for fatigue and weakness; Negative for headache(s), frequent falls, excessive sweating or weight gain Eyes Eyes: Negative for blurry vision or change in vision ENT ENT: Positive for balance problems and neck pain; Negative for headache(s), dizziness or Nosebleed/epistaxis Cardio Chest Pain: No Palpitations: No Edema: None Muscle aches with walking: None Resp Respiratory: Positive for SOB with activity (more content not included)... Normal [facility] Chest PA and Lateralon 09-11 Chest PA and Lateral [facility] [address] [place] [address] Chest PA and Lateral MR#: [id number] Acct: [id number] Name: BLAYNE MORALES Rep #: [id number] : 1950 M 74 From: Luis John MD PCP: Linwood Cowart Status: REG CLI Study: Chest PA and Lateral Date of Exam: 09/11/24 Exam# [id number] Ordering Dr: Susan Biswas PA EXAM: XR Chest, 2 Views CLINICAL INDICATION: RIGHT PLEURAL EFFUSION TECHNIQUE: Frontal and lateral views of the chest. COMPARISON: No relevant prior studies available. FINDINGS: LUNGS AND PLEURAL SPACES: Right basilar atelectasis or pneumonia. Right pleural effusion. No pneumothorax. HEART: Unremarkable. No cardiomegaly. MEDIASTINUM: Unremarkable. Normal mediastinal contour. BONES/JOINTS: Unremarkable. No acute fracture. RAD/Chest PA and Lateral IMPRESSION: 1. Right basilar atelectasis or pneumonia. 2. Right pleural effusion. Reading Location: [id number] CC: EARL Monson; Linwood Cowart Secretary Bookkeeper: Signed [facility] International normalized rat io (INR) calculationOrdered By: Susan Biswas on 09-09-2024 INR Coag (Bld) [Relative time] 3.6 {INR} [facility] Prothrombin Time w/INRon INR Coag (PPP) [Relative time] 3.6 {INR} Normal [facility] Comment on above: Performed By: #### L 500.2500, L300.3900, L001.0705, L504.2610, L100.0100 #### [facility] Laboratory [address] [place], [address] PT Coag (PPP) [Time] 36.7 s High 11.7-14.9 [facility] Comment on above: Performed By: #### L 500.2500, L300.3900, L001.0705, L504.2610, L100.0100 #### [facility] [address] [place], [address] Prothrombin timeOrdered By: Susan Biswas on 09-09-2024 PT Coag (PPP) [Time] 36.7 s High 11.7-14.9 [facility] Protime w/INR Fingerstickon 09-09-2024 INR Coag (PPP) [Relative time] 4.0 {INR} Invalid Interpretation Code [facility] Comment on above: Result Comment: Crit ical Value > 4.0 Performed By: #### L 300.3900 #### [facility] [address] [place], [address] Protime Coagsen 39.9 SEC High 11.7-14.9 [facility] Comment on above: Performed By: #### L 300.3900 #### [facility] [address] [place], [address] Whole blood prothrombin time Ordered By: Susan Biswas on 09-09-2024 PT Coag (Bld) [Time] 39.9 s High 11.7-14.9 [facility] Protime w/INR Fingerstickon 09-03-2024 INR Coag (PPP) [Relative time] 4.5 {INR} Invalid Interpretation Code [facility] Comment on above: Result Comment: Crit ical Value > 4.0 Performed By: #### L 500.2500, L300.3900, L001.0705, L504.2610, L100.0100 #### [facility] [address] [place], [address] Protime Coagsen 44.2 SEC High 11.7-14.9 [facility] Comment on above: Performed By: #### L 500.2500, L300.3900, L001.0705, L504.2610, L100.0100 #### [facility] [address] [place], [address] Prothrombin Time w/INRon INR Coag (PPP) [Relative time] 3.9 {INR} Normal [facility] Comment on above: Performed By: #### L 500.2500, L300.3900, L001.0705, L504.2610, L100.0100 #### [facility] [address] [place], [address] PT Coag (PPP) [Time] 38.9 s High 11.7-14.9 [facility] Comment on above: Performed By: #### L 500.2500, L300.3900, L001.0705, L504.2610, L100.0100 #### [facility] [address] [place], [address] Protime w/INR Fingerstickon 07-08-2024 INR Coag (PPP) [Relative time] 3.1 {INR} Normal [facility] Comment on above: Result Comment: Crit ical Value > 4.0 Performed By: #### L 500.2500, L300.3900, L001.0705, L504.2610, L100.0100 #### [facility] [address] [place], [address] Protime Coagsen 32.0 SEC High 11.7-14.9 [facility] Comment on above: Performed By: #### L 500.2500, L300.3900, L001.0705, L504.2610, L100.0100 #### [facility] [address] [place], [address] Cardiology Visit Reporton Cardiology Visit Report [facility] [address] [place] [address] OFFICE VISIT Date of Service: 07/07/24 MR#: [id number] Acct: [id number] Name: BLAYNE MORALES Rep #: [id number] : 1950 Provider: EARL Good Age/Sex: 74/M Location: [facility] [place] Status: Signed HPI HPI History of Present Illness Details: Blayne Morales is a 74-year-old male who presents to the office today for acute visit as recommended from PCP. Patient was admitted to [facility] 04/25 - 04/28/2024 secondary to hypoglycemia and right-sided pleural effusion secondary to chronic congestive heart failure with preserved ejection fraction and severe pulmonary hypertension. Patient underwent right-sided thoracentesis removing 1.2 L. Patient was discharged on Lasix 40 mg daily. Echocardiogram performed 04/25/2024 demonstrated ejection fraction of 70%, moderately dilated right ventricle and severe pulmonary hypertension with systolic pressure 90 mmHg along with moderate aortic stenosis. Patient's cardiac history consist of paroxysmal atrial fibrillation, hypertension and aortic stenosis. Patient was admitted January 2021 with abdominal discomfort, HELENA and septic shock and was noted to be in atrial fibrillation with RVR. He was subsequently successfully discharged after he had an echocardiogram which demonstrated an ejection fraction of 55-60%. Upon evaluation in office today, patient reports ongoing shortness of breath with activity and at rest; however, this is significantly improved since his hospitalization. He was discharged with 30 days of Lasix which was not refilled; therefore, he has been out of this medication for approximately 1 month. Patient reports his symptoms of dyspnea have improved. Further ROS below. He denies chest pain; however, does note chest wall tenderness that has been ongoing since having echocardiogram performed in the hospital. Intake Vital Signs 04/26/24 11:57 07/07/24 07:23 Height 5 ft 8 in 5 ft 8 in Weight: 233 lb BMI 35.4 BP 111/74 Blood Pressure Location Lt brachial Position Sitting Respiration 18 Pulse 66 Pulse Source Monitor Pulse Oximetry (%) 96 Intake Visit Reasons: TY WHITTEN Deposit Refund Clerk Required: No Is patient in pain?: No Allergies amlodipine (From Lotrel) Allergy (Severe, Verified 07/07/24 15:04) Other benazepril (From Lotrel) Allergy (Severe, Verified 07/07/24 15:04) Other Medications ???Medication ???Instructions ???Recorded ???Confirmed ???Type pravastatin 20 mg tablet 20 mg PO DAILY 01/26/21 07/07/24 H istory glimepiride 4 mg tablet 4 mg PO DAILY #60 tabs 02/07/21 Rx acetaminophen 500 mg capsule 500 mg PO Q6H PRN fever or pain 07/07/24 History cyanocobalamin (vitamin B-12) 1,000 mcg PO DAILY 11/08/21 History 1,000 mcg capsule ferrous sulfate 325 mg (65 mg 325 mg PO .3 x week 11/08/2107/07 History iron) capsule,extended release spironolactone 25 mg tablet 25 mg PO DAILY 11/08/21 07/07/24 H istory insulin glargine 100 unit/mL (3 35 unit subcut QPM 01/09/22 History mL) subcutaneous pen (Lantus Solostar U-100 Insulin) cholecalciferol (vitamin D3) 1,250 1,250 mcg PO QWEEK 03/08/2206/19 History mcg (50,000 unit) capsule tamsulosin 0.4 mg capsule (Flomax) 0.4 mg PO DAILY 09/14/22 5 History warfarin 4 mg tablet 4 mg PO SUMOTUWETHSA 04/25/2406/19 History warfarin 6 mg tablet (Jantoven) 6 mg PO FR blood 04/25/24 07/07/24 History furosemide 40 mg tablet (Lasix) 40 mg PO DAILY #30 tabs 04/28/24 0 07/07/24 Rx metoprolol tartrate 50 mg tablet 50 mg PO BID #180 tabs 05/04/24 Rx furosemide 40 mg tablet 40 mg PO .prn #20 tabs 07/08/24 Rx Ejection fraction %: 65 Have you fallen in the past year?: No PFSH Medical History Pleural effusion on right Alcohol abuse Sleep apnea Cardiac murmur Chronic kidney disease (CKD) Frequent headaches Hyperlipidemia Paroxysmal atrial fibrillation Atrial fibrillation with rapid ventricular response (01/2021) Essential hypertension Severe protein-calorie malnutrition HELENA (acute kidney injury) Abrasion of cornea, right Diabetes Surgical History History of cataract surgery Social History Smoking Status: Former smoker ROS Const Const: Negative for fatigue, weakness, headache(s) or frequent falls Eyes Eyes: Negative for blurry vision ENT ENT: Negative for headache(s), dizziness or Nosebleed/epistaxis Cardio Chest Pain: No Palpitations: No Edema: None Muscle aches with walking: None Resp Respiratory: Positive for S (more content not included)... Normal [facility] International normalized rat io (INR) measurement by fingerstickOrdered By: Susan Biswas on 07-07-2024 INR Coag (BldC) [Relative time] 3.1 [facility] Comment on above: Critical Value > 4.0 Prothrombin Time w/INRon INR Normal [facility] Comment on above: Order Comment: Comme nts: STANDING ORDER: Fingerstick is OK fax to [phone] Result Comment: ROE ERSTICK Performed By: #### L 300.3900 #### [facility] [address] [place], [address] PROTIME Normal 11.7-14.9 [facility] Comment on above: Order Comment: Comme nts: STANDING ORDER: Fingerstick is OK fax to [phone] Result Comment: ROE ERSTICK Performed By: #### L 300.3900 #### [facility] [address] [place], [address] Whole blood prothrombin time Ordered By: Susan Biswas on 07-07-2024 PT Coag (Bld) [Time] 32.0 s High 11.7-14.9 [facility] Body Fluid Cell Count+Diffon 06-01-2024 PATH COMM/BF Reviewed Normal [facility] Comment on above: Order Comment: The r eference range and other method performancespecifications have not been established for this bodyfluid. The test must be integrated into the clinicalcontext for interpretation. Result Comment: SEE REPORT IN PATIENT'S EMR AMENDED REPORT 06/01/24 1405 PATH COMM/BF previously reported as: May follow Performed By: #### L 500.2500, L300.3900, L001.0705, L504.2610, L100.0100 #### [facility] [address] [place], [place], [address] L503.7505on 05-12-2024 Natriuretic peptide B (Bld) [Mass/Vol] 1054 pg/mL High <=900 [facility] Comment on above: Result Comment: Hear t Failure Unlikely: < 300 pg/mL Heart Failure Likely < 50 Years: > 450 pg/mL 50-75 Years: > 900 pg/mL >75 Years: > 1800 pg/mL Performed By: #### L 300.3900 #### [facility] [address] [place], [place], [address] Laboratory - Chemistry and C hemistry - challengeOrdered By: Curly Perea on 05-12-2024 Natriuretic peptide B (Bld) [Mass/Vol] 1054 pg/mL High <900 [facility] Comment on above: Heart Failure Unlike ly: < 300 pg/mLHeart Failure Likely< 50 Years: > 450 pg/mL50-75 Years: > 900 pg/mL>75 Years: > 1800 pg/mL Anion gap in Serum or Plasma Ordered By: Geoffrey Cowart on 05-05-2024 Anion gap [Moles/Vol] 13 mmol/L - [facility] BUN/creatinine ratioOrdered By: Geoffrey Cowart on 05-05-2024 Urea nitrogen/Creatinine [Mass ratio] 23.0 mg/mg High 10- [facility] Basic Metabolic Profile (BMP )on 05-05-2024 BUN/CRE 23.0 RATIO High 10-20 [facility] Comment on above: Performed By: #### L 500.2500, L300.3900, L001.0705, L504.2610, L100.0100 #### [facility] [address] [place], [address] Calcium [Mass/Vol] 11.4 mg/dL High 7.6-11.0 [facility] Comment on above: Performed By: #### L 500.2500, L300.3900, L001.0705, L504.2610, L100.0100 #### [facility] [address] [place], [address] Chloride [Moles/Vol] 94 mmol/L Low 98-108 [facility] Comment on above: Performed By: #### L 500.2500, L300.3900, L001.0705, L504.2610, L100.0100 #### [facility] [address] [place], [address] CO2 [Moles/Vol] 25.3 mmol/L Normal 21.0-32.0 [facility] Comment on above: Performed By: #### L 500.2500, L300.3900, L001.0705, L504.2610, L100.0100 #### [facility] [address] [place], [address] Creatinine [Mass/Vol] 1.16 mg/dL Normal 0.70-1.20 [facility] Comment on above: Performed By: #### L 500.2500, L300.3900, L001.0705, L504.2610, L100.0100 #### [facility] [address] [place], [address] GAP 13 Normal 5-15 [facility] Comment on above: Performed By: #### L 500.2500, L300.3900, L001.0705, L504.2610, L100.0100 #### [facility] [address] [place], [address] GFR/1.73 sq M.predicted among non-blacks MDRD (S/P/Bld) [Vol rate/Area] 67 mL/min/{1.73_m2} Normal >60 [facility] Comment on above: Result Comment: mL/m in/1.73m2 CKD-EPI Creatinine Equation (2020) Performed By: #### L 500.2500, L300.3900, L001.0705, L504.2610, L100.0100 #### [facility] [address] [place], [address] Glucose [Mass/Vol] 169 mg/dL High 70-99 [facility] Comment on above: Performed By: #### L 500.2500, L300.3900, L001.0705, L504.2610, L100.0100 #### [facility] [address] [place], [address] Potassium [Moles/Vol] 4.7 mmol/L Normal 3.3-5.1 [facility] Comment on above: Performed By: #### L 500.2500, L300.3900, L001.0705, L504.2610, L100.0100 #### [facility] [address] [place], [address] Sodium [Moles/Vol] 132 mmol/L Low 133-145 [facility] Comment on above: Performed By: #### L 500.2500, L300.3900, L001.0705, L504.2610, L100.0100 #### [facility] [address] [place], [address] Urea nitrogen [Mass/Vol] 27 mg/dL High 4-19 [facility] Comment on above: Performed By: #### L 500.2500, L300.3900, L001.0705, L504.2610, L100.0100 #### [facility] [place], [address] Carbon dioxide, total [Moles /volume] in Central venous bloodOrdered By: Geoffrey Cowart on 05-05-2024 CO2 [Moles/Vol] 25.3 mmol/L 21.0-32.0 [facility] Chloride assayOrdered By: Jose Cowart on 05-05-2024 Chloride [Moles/Vol] 94 mmol/L Low 98-108 [facility] GFR/1.73 sq M.predicted kalani g non-blacks MDRD (S/P/Bld) [Vol rate/Area]Ordered By: Geoffrey Cowart on 05-05-2024 Estimated GFR (MDRD) Non-Af Amer 67 >60 [facility] Comment on above: mL/min/1.73m2 CKD-EP I Creatinine Equation (2020) Glomerular filtration rate ( GFR) estimation/1.73 sq m using serum, plasma, or whole bOrdered By: Geoffrey Cowart on 05-05-2024 GFR/1.73 sq M.predicted among non-blacks MDRD (S/P/Bld) [Vol rate/Area] 67 mL/min/{1.73_m2} >60 [facility] Comment on above: mL/min/1.73m2 CKD-EP I Creatinine Equation (2020) Potassium (Unsp spec) [Mass/ Vol]Ordered By: Geoffrey Cowart on 05-05-2024 Potassium [Moles/Vol] 4.7 mmol/L 3.3-5.1 [facility] Potassium measurement (mass/ volume)Ordered By: Geoffrey Cowart on 05-05-2024 Potassium (Unsp spec) [Mass/Vol] 4.7 mmol/L 3.3-5.1 [facility] Serum creatinine measurement (mass/volume)Ordered By: Geoffrey Cowart on 05-05-2024 Creatinine [Mass/Vol] 1.16 mg/dL 0.70-1.20 [facility] Serum glucose measurement (m ass/volume)Ordered By: Geoffrey Cowart on 03-18-2025 Glucose [Mass/Vol] 169 mg/dL High 70-99 [facility] Serum or plasma calcium jocelyn urement (mass/volume)Ordered By: Armondn Beam on 05-05-2024 Calcium [Mass/Vol] 11.4 mg/dL High 7.6-11.0 [facility] Serum or plasma urea nitroge n measurement (mass/volume)Ordered By: Zebulun Beam on 05-05-2024 Urea nitrogen [Mass/Vol] 27 mg/dL High 4-19 [facility] Sodium levelOrdered By: Zebu yuriy Beam on 05-05-2024 Sodium [Moles/Vol] 132 mmol/L Low 133-145 [facility] Culture, Anaerobic Any Sourc liza 05-03-2024 CUAN No growth in 5 days. Normal [facility] Comment on above: Performed By: #### L 500.2500, L300.3900, L001.0705, L504.2610, L100.0100 #### [facility] [address] [place], [address] Body Fluid Culton 05-01-2024 BFC No growth aerobically. Normal [facility] Comment on above: Performed By: #### L 500.2500, L300.3900, L001.0705, L504.2610, L100.0100 #### [facility] [address] [facility] [place], [address] Gram Stainon 04-29-2024 GS Centrifuged Specimen ? Culture performed on centrifuged specimen Gram Stain No organisms seen Rare White Blood Cells Normal [facility] Comment on above: Performed By: #### L 500.2500, L300.3900, L001.0705, L504.2610, L100.0100 #### [facility] [address] [facility] [place], [address] Prothrombin Time w/INRon INR Normal [facility] Comment on above: Result Comment: Canc elled via OM: Order cancelled - Patient discharged Performed By: #### L 500.2500, L300.3900, L001.0705, L504.2610, L100.0100 #### [facility] [address] [place], [address] PROTIME Normal 11.7-14.9 [facility] Comment on above: Result Comment: Canc elled via OM: Order cancelled - Patient discharged Performed By: #### L 500.2500, L300.3900, L001.0705, L504.2610, L100.0100 #### [facility] [address] [place], [address] Absolute lymphocyte countOrd ered By: Nba Seth on 04-28-2024 Lymphocytes Auto (Unsp spec) [#/Vol] 0.96 10*3/uL 0.83-4.51 [facility] Absolute neutrophil countOrd ered By: Nba Seth on 04-28-2024 Neutrophils (Bld) [#/Vol] 8.0 10*3/uL High 2.0-7.7 [facility] Anaerobic cultureOrdered By: Nba Seth on 04-28-2024 Bacteria identified Anaer cx Nom (Unsp spec) No growth in 5 days. [facility] Anion gap in Serum or Plasma Ordered By: Nba Seth on 04-28-2024 Anion gap [Moles/Vol] 12 mmol/L 5-15 [facility] Appearance (Body fld)Ordered By: Hubert Hastings on 04-28-2024 Body Fluid Appearance CLEAR [facility] Automated lymphocyte count a s percentage of total leukocytesOrdered By: Nba Seth on 04-28-2024 Lymphocytes/100 WBC Auto (Unsp spec) 9.6 % Low 19-41 [facility] BUN/creatinine ratioOrdered By: Nba Seth on 04-28-2024 Urea nitrogen/Creatinine [Mass ratio] 24.4 mg/mg High 10-20 [facility] Bacteria identified Anaer cx Nom (Unsp spec)Ordered By: Nba Seth on 04-28-2024 Anaerobic Culture No growth in 5 days. [facility] Basic Metabolic Profile (BMP )on 04-28-2024 BUN/CRE 24.4 RATIO High 10-20 [facility] Comment on above: Performed By: #### L 501.080 #### [facility] [address] [place], [address] Calcium [Mass/Vol] 10.2 mg/dL Normal 7.6-11.0 [facility] Comment on above: Performed By: #### L 501.080 #### [facility] [address] [place], [address] Chloride [Moles/Vol] 102 mmol/L Normal 98-108 [facility] Comment on above: Performed By: #### L 501.080 #### [facility] [address] [place], [address] CO2 [Moles/Vol] 23.2 mmol/L Normal 21.0-32.0 [facility] Comment on above: Performed By: #### L 501.080 #### [facility] [address] [place], [address] Creatinine [Mass/Vol] 0.99 mg/dL Normal 0.70-1.20 [facility] Comment on above: Performed By: #### L 501.080 #### [facility] [address] [place], [address] ECRCL 77.45 ml/min Normal 50-250 [facility] Comment on above: Performed By: #### L 501.080 #### [facility] [address] [place], [address] GAP 12 Normal 5-15 [facility] Comment on above: Performed By: #### L 501.080 #### [facility] [address] [place], [address] GFR/1.73 sq M.predicted among non-blacks MDRD (S/P/Bld) [Vol rate/Area] 80 mL/min/{1.73_m2} Normal >60 [facility] Comment on above: Result Comment: mL/m in/1.73m2 CKD-EPI Creatinine Equation (2020) Performed By: #### L 501.080 #### [facility] [address] [place], [address] Glucose [Mass/Vol] 136 mg/dL High 70-99 [facility] Comment on above: Performed By: #### L 501.080 #### [facility] [address] [place], [address] Potassium [Moles/Vol] 3.9 mmol/L Normal 3.3-5.1 [facility] Comment on above: Performed By: #### L 501.080 #### [facility] [address] [place], [address] Sodium [Moles/Vol] 137 mmol/L Normal 133-145 [facility] Comment on above: Performed By: #### L 501.080 #### [facility] [address] [place], [address] Urea nitrogen [Mass/Vol] 24 mg/dL High 4-19 [facility] Comment on above: Performed By: #### L 501.080 #### [facility] [address] [place], [address] Basophil percentageOrdered B y: Nba Seth on 04-28-2024 Basophils/100 WBC (Bld) 0.5 % 0-1 [facility] Bedside Glucoseon 04-28-2024 FINGERSTICK GLU 210 mg/dL High 74-106 [facility] Comment on above: Result Comment: KECIA ABDI OF PATIENT CARE PER NURSING PROTOCOL Performed By: #### L 500.2500, L300.3900, L001.0705, L504.2610, L100.0100 #### [facility] [address] [place], [address] FINGERSTICK GLU 154 mg/dL High 74-106 [facility] Comment on above: Result Comment: KECIA ABDI OF PATIENT CARE PER NURSING PROTOCOL Performed By: #### L 613.1343 #### [facility] [address] [place], [address] Body fluid appearance (nomin al result)Ordered By: Hubert Hastings on 04-28-2024 Appearance (Body fld) CLEAR [facility] Body fluid color determinati onOrdered By: Hubert Hastings on 04-28-2024 Color (Body fld) YELLOW [facility] Body fluid cultureOrdered By : Nba Seth on 04-28-2024 Body Fluid Culture No growth aerobically. [facility] Body fluid leukocytes count (number/volume)Ordered By: Hubert Hastings on 04-28-2024 WBC (Body fld) [#/Vol] 159 /mm3 [facility] Comment on above: Previous reported re sult: 0.179 10^3/uLEdited by: RENETTA on 04/28/24:1228 AMENDED REPORT 04/28/24 1228 WBC/BF previously reported as: 0.179 10^3/uL Body fluid lymphocytes/100 l eukocytesOrdered By: Hubert Hastings on 04-28-2024 Lymphocytes/100 WBC (Body fld) 42 % [facility] Body fluid macrophage countO rdered By: Hubert Hastings on 04-28-2024 Macrophages (Body fld) [#/Vol] 28 % [facility] Body fluid mononuclear cell countOrdered By: Hubert Hastings on 04-28-2024 Body Fluid Mononuclear WBCs 0.165 10^3/uL [facility] Body fluid mononuclear cell percentageOrdered By: Hubert Hastings on 04-28-2024 Mononuclear cells/100 WBC (Body fld) 92.2 % [facility] Body fluid segmented neutrop hils count (number/volume)Ordered By: Hubert Hastings on 04-28-2024 Segmented neutrophils (Body fld) [#/Vol] 9 % [facility] Body fluid specific gravityO rdered By: Nba Seth on 04-28-2024 Specific gravity (Body fld) [Rel density] 1.026 [facility] Body fluid total cell countO rdered By: Hubert Hastings on 04-28-2024 Cells Counted Total (Body fld) [#] 0.205 10^3/ul [facility] Comment on above: This is the Total Nu mber of Nucleated Cell Types in the Body Fluid. CBC W/Diff, Automatedon 04-18 Absolute Lymph 0.96 X10 3/uL Normal 0.83-4.51 [facility] Comment on above: Performed By: #### L 501.080 #### [facility] Laboratory [address] [place], [address] Absolute Neut 8.0 X10 3/uL High 2.0-7.7 [facility] Comment on above: Performed By: #### L 501.080 #### [facility] [address] [place], [address] Basophils/100 WBC (Bld) 0.5 % Normal 0-1 [facility] Comment on above: Performed By: #### L 501.080 #### [facility] [address] [place], [address] Eosinophils/100 WBC (Bld) 2.1 % Normal 0-5 [facility] Comment on above: Performed By: #### L 501.080 #### [facility] [address] [place], [address] Erythrocyte distribution width (RBC) [Ratio] 16.1 % High 11.6-14.6 [facility] Comment on above: Performed By: #### L 501.080 #### [facility] [address] [place], [address] Hematocrit (Bld) [Volume fraction] 42.3 % Normal 40-54 [facility] Comment on above: Performed By: #### L 501.080 #### [facility] [address] [place], [address] Hemoglobin (Bld) [Mass/Vol] 13.5 g/dL Normal 13.0-16.5 [facility] Comment on above: Performed By: #### L 501.080 #### [facility] [address] [place], [address] IG% 0.500 Normal 0.0-0.9 [facility] Comment on above: Result Comment: IG% - Immature Granulocytes (promyelocytes, myelocytes and metamyelocytes) > 1% indicates that a LEFT SHIFT is Present. Performed By: #### L 501.080 #### [facility] [address] [place], [address] Lymphocytes/100 WBC (Bld) 9.6 % Low 19-41 [facility] Comment on above: Performed By: #### L 501.080 #### [facility] [address] [place], [address] MCH (RBC) [Entitic mass] 25.8 pg Low 27.0-32.0 [facility] Comment on above: Performed By: #### L 501.080 #### [facility] [address] [place], [address] MCHC (RBC) [Mass/Vol] 31.9 g/dL Low 32-36 [facility] Comment on above: Performed By: #### L 501.080 #### [facility] [address] [place], [address] MCV (RBC) [Entitic vol] 80.9 fL Normal 80-94 [facility] Comment on above: Performed By: #### L 501.080 #### [facility] [address] [place], [address] Monocytes/100 WBC (Bld) 7.6 % Normal 0-10 [facility] Comment on above: Performed By: #### L 501.080 #### [facility] [address] [place], [address] Neutrophils/100 WBC (Bld) 79.7 % High 47-70 [facility] Comment on above: Performed By: #### L 501.080 #### [facility] [address] [place], [address] Nucleated RBC (Bld) [#/Vol] 0 10*3/uL Normal 0-5 [facility] Comment on above: Performed By: #### L 501.080 #### [facility] [address] [place], [address] Platelet mean volume (Bld) [Entitic vol] 10.5 fL Normal 6.2-12.0 [facility] Comment on above: Performed By: #### L 501.080 #### [facility] [address] [place], [address] Platelets (Bld) [#/Vol] 218 10*3/uL Normal 150-450 [facility] Comment on above: Performed By: #### L 501.080 #### [facility] [address] [place], [address] RBC (Bld) [#/Vol] 5.23 10*6/uL Normal 4.6-6.2 [facility] Comment on above: Performed By: #### L 501.080 #### [facility] [address] [place], [address] RDW SD 46.9 fl High 35.1-43.9 [facility] Comment on above: Performed By: #### L 501.080 #### [facility] [address] [place], [address] WBC (Bld) [#/Vol] 10.0 10*3/uL Normal 4.4-11.0 [facility] Comment on above: Performed By: #### L 501.080 #### [facility] [address] [place], [address] Carbon dioxide, total [Moles /volume] in Central venous bloodOrdered By: Nba Seth on 04-28-2024 CO2 [Moles/Vol] 23.2 mmol/L 21.0-32.0 [facility] Cells Counted Total (Body fl d) [#]Ordered By: Hubert Hastings on 04-28-2024 Body Fluid Total Cells Counted 0.205 10^3/ul [facility] Comment on above: This is the Total Nu mber of Nucleated Cell Types in the Body Fluid. Chest Insp/Exp 2 Viewon 04-18 Chest Insp/Exp 2 View [facility] Imaging Services [address], [place] [address] Chest Insp/Exp 2 View MR#: [id number] Acct: [id number] Name: BLAYNE MORALES Rep #: [id number] : 1950 M 74 From: Luis John MD PCP: Evelia Gil [facility], MUSIC THERAPY SPECIALIST-C Status: ADM IN Study: Chest Insp/Exp 2 View Date of Exam: 04/28/24 Exam# [id number] Ordering Dr: Abhay Keene EXAM: XR Chest, 2 Views CLINICAL INDICATION: POST THORACENTESIS TECHNIQUE: Frontal and lateral views of the chest. COMPARISON: XR Chest dated 04/25/2024 FINDINGS: LUNGS AND PLEURAL SPACES: Decreasing right pleural effusion. No pneumothorax. HEART: Cardiomegaly with mild congestion. MEDIASTINUM: Unremarkable. Normal mediastinal contour. BONES/JOINTS: Unremarkable. No acute fracture. RAD/Chest Insp/Exp 2 View IMPRESSION: 1. Cardiomegaly with mild congestion. 2. Decreasing right pleural effusion. No pneumothorax. Reading [facility] CC: [facility] MUSIC THERAPY SPECIALIST-C Evelia Gil; Dr. Abhay Keene MD Secretary Bookkeeper: Signed Normal [facility] Chloride assayOrdered By: Yogesh Seth on 04-28-2024 Chloride [Moles/Vol] 102 mmol/L 98-108 [facility] Color (Body fld)Ordered By: Hubert Hastings on 04-28-2024 Body Fluid Color YELLOW [facility] Cytology report Cyto stain D oc (Body fld)Ordered By: Nba Seth on 04-28-2024 Miscellaneous Cytology SEE PATHOLOGY REPORT [facility] Comment on above: Specimen submitted t o Anatomical Pathology Department for testing. Cytology report of Body flui d Cyto stainOrdered By: Nba Seth on 04-28-2024 Cytology report Cyto stain Doc (Body fld) SEE PATHOLOGY REPORT [facility] Comment on above: Specimen submitted t o Anatomical Pathology Department for testing. Cytology, Body Fluid / CSFon 04-28-2024 CYTOLOGY,BF/CSF SEE PATHOLOGY REPORT Normal [facility] Comment on above: Order Comment: Order Date: 04/28/24 Result Comment: Spec imen submitted to Anatomical Pathology Department for testing. Performed By: #### L 500.2500, L300.3900, L001.0705, L504.2610, L100.0100 #### [facility] Laboratory [address] [facility] [place], [address] Discharge Instructionon 04-18 Discharge Instruction [facility] Medical Records Department [address] [place] [address] Instructions for Home/Discharge Instructions 04/28/24 1234 MR#: [id number] Acct: [id number] Name: BLAYNE MORALES Rep #: [id number] : 1950 74 From: Luis Nieto DO PCP: VIKRAM Bower, MUSIC THERAPY SPECIALIST-C Status:ADM IN Discharge Instructions Diet Discharge Diet: 1800 Calorie Control Diet DC O2, CPAP, BIPAP needs Home O2 Discharge instructions: No Dressing / Incision Discharge Activity: Return to Normal Activity Weight Bearing Status: Full weight bearing Follow Up Care Test Results: Test results from this visit will be discussed in further detail at your follow-up appointment, if applicable. Discharge Plan Admission Admit Date/Time: 04/25/24 19:00 Primary Reason for Your Visit: Right pleural effusion, hypoxia, congestive heart failure Attending Provider: Luis Nieto Primary Care Provider: Evelia Gil Consulting Providers: Hubert Hastings; Nba Seth Instructions Patient Instructions: RAD RN Thoracentesis Dc Discharge Orders/Prescriptions Prescriptions: New furosemide [Lasix] 40 mg tablet 40 mg PO DAILY Qty: 30 0RF Continued cyanocobalamin (vitamin B-12) 1,000 mcg capsule 1,000 mcg PO DAILY spironolactone 25 mg tablet 25 mg PO DAILY acetaminophen 500 mg capsule 500 mg PO Q6H PRN (Reason: fever or pain) Lantus Solostar U-100 Insulin 100 unit/mL (3 mL) insulin pen 35 unit subcut QPM cholecalciferol (vitamin D3) 1,250 mcg (50,000 unit) capsule 1,250 mcg PO QWEEK metformin 500 mg tablet 500 mg PO DAILY tamsulosin [Flomax] 0.4 mg capsule 0.4 mg PO DAILY pravastatin 20 mg tablet 20 mg PO DAILY glimepiride 4 mg tablet 4 mg PO DAILY Qty: 60 0RF ferrous sulfate 325 mg (65 mg iron) capsule, extended release 325 mg PO .3 x week warfarin [Jantoven] 6 mg tablet 6 mg PO FR warfarin 4 mg tablet [address] [facility] Protocol: Dose Management Condition: Saturday Dose/Route: 4 mg Instruction: 1 x 4 mg tablet Condition: Saturday Dose/Route: 4 mg Instruction: 1 x 4 mg tablet Condition: Saturday Dose/Route: 4 mg Instruction: 1 x 4 mg tablet Condition: Saturday Dose/Route: 4 mg Instruction: 1 x 4 mg tablet Condition: Dose/Route: 4 mg Instruction: 1 x 4 mg tablet Condition: Saturday Dose/Route: 4 mg Instruction: 1 x 4 mg tablet Condition: Saturday Dose/Route: 4 mg Instruction: 1 x 4 mg tablet Protocol Text: Adjustment Start Date: Saturday01/07/24 INR Value: 1.9 INR Date: 01/07/24 Recheck Date: 01/21/24 Rx Instructions: 1 tablet 4 days a week and 1.5 tablets 3 days a week or as directed metoprolol tartrate 50 mg tablet 50 mg PO BID Qty: 180 3RF Referrals / Follow Up: Evelia Gil, MUSIC THERAPY SPECIALIST-C [Primary Care Provider] - Within 1 Week (Call to confirm appointment) Disposition Disposition (needs filled in before D/C Order can be placed): Home, Self Care 04/28/24 1246 Luis Nieto DO CC: VIKRAM MUSIC THERAPY SPECIALISTCash Gil; Dr. Hubert Hastings DO; Dr. Nba Seth MD Signed Normal [facility] Eosinophil percentageOrdered By: Nba Seth on 04-28-2024 Eosinophils/100 WBC (Bld) 2.1 % 0-5 [facility] Erythrocyte distribution wid th ratioOrdered By: Nba Seth on 04-28-2024 Erythrocyte distribution width (RBC) [Ratio] 16.1 % High 11.6-14.6 [facility] Erythrocyte distribution wid th standard deviationOrdered By: Nba Seth on 04-28-2024 Erythrocyte distribution width (RBC) [Entitic vol] 46.9 fL High 35.1-43.9 [facility] Erythrocyte distribution width (RBC) [Ratio] 46.9 fl High 35.1-43.9 [facility] Estimation of creatinine sami aranceOrdered By: Nba Seth on 04-28-2024 Estimated Creatinine Clearance Calc 77.45 ml/min 50-250 [facility] GFR/1.73 sq M.predicted kalani g non-blacks MDRD (S/P/Bld) [Vol rate/Area]Ordered By: Nba Seth on 04-28-2024 Estimated GFR (MDRD) Non-Af Amer 80 >60 [facility] Comment on above: mL/min/1.73m2 CKD-EP I Creatinine Equation (2020) Glomerular filtration rate ( GFR) estimation/1.73 sq m using serum, plasma, or whole bOrdered By: Nba Seth on 04-28-2024 GFR/1.73 sq M.predicted among non-blacks MDRD (S/P/Bld) [Vol rate/Area] 80 mL/min/{1.73_m2} >60 [facility] Comment on above: mL/min/1.73m2 CKD-EP I Creatinine Equation (2020) Glucose measurement at bedsi deOrdered By: Luis Nieto on 04-28-2024 Bedside Glucose (Misc Panel) 210 mg/dL High 74-106 [facility] Comment on above: MANAGEMENT OF PATIEN T CARE PER NURSING PROTOCOL Glucose [Mass/Vol] 210 mg/dL High 74-106 [facility] Comment on above: MANAGEMENT OF PATIEN T CARE PER NURSING PROTOCOL Glucose, Body Fluidon 2024 GLUC, BODY FLD 148 mg/dL Normal Not Establ. [facility] Comment on above: Performed By: #### L 500.2500, L300.3900, L001.0705, L504.2610, L100.0100 #### [facility] Laboratory [address] [place], [address] Glucose, body fluidOrdered B y: Nba Seth on 04-28-2024 Body Fluid Glucose 148 mg/dL Not Establ. [facility] Gram stainOrdered By: Arelis Seth on 04-28-2024 Microscopic observation Gram stain Nom (Unsp spec) [facility] Hematocrit Auto (Bld) [Volum e fraction]Ordered By: Nba Seth on 04-28-2024 Hematocrit (Bld) [Volume fraction] 42.3 % 40-54 [facility] Hemoglobin measurementOrdere d By: Nba Seth on 04-28-2024 Hemoglobin (Bld) [Mass/Vol] 13.5 g/dL 13.0-16.5 [facility] Immature granulocytes/100 WB C Auto (Bld)Ordered By: Nba Seth on 04-28-2024 Immature granulocytes/100 WBC (Bld) 0.500 % 0.0-0.9 [facility] Comment on above: IG% - Immature Granu locytes (promyelocytes, myelocytes and metamyelocytes) > 1% indicates that a LEFT SHIFT is Present. International normalized rat io (INR) calculationOrdered By: Nba Seth on 04-28-2024 INR Coag (Bld) [Relative time] 1.4 {INR} [facility] LDH,Body Fluidon 04-28-2024 LDH,BF 92 Units/L Normal Not Establ. [facility] Comment on above: Performed By: #### L 500.2500, L300.3900, L001.0705, L504.2610, L100.0100 #### [facility] Laboratory [address] [place], [address] Lymphocytes Auto (Unsp spec) [#/Vol]Ordered By: Nba Seth on 04-28-2024 Lymphocytes (Bld) [#/Vol] 0.96 10*3/uL 0.83-4.51 [facility] Lymphocytes/100 WBC (Body fl d)Ordered By: Hubert Hastings on 04-28-2024 Body Fluid Lymphocytes 42 % [facility] Lymphocytes/100 WBC Auto (Un sp spec)Ordered By: Nba Seth on 04-28-2024 Lymphocytes/100 WBC (Bld) 9.6 % Low 19-41 [facility] MCV (mean corpuscular volume ) determinationOrdered By: Nba Seth on 04-28-2024 MCV (RBC) [Entitic vol] 80.9 fL 80-94 [facility] Macrophages (Body fld) [#/Vo l]Ordered By: Hubert Hastings on 04-28-2024 Body Fluid Macrophages 28 % [facility] Mean corpuscular hemoglobin (MCH) determinationOrdered By: Nba Seth on 04-28-2024 MCH (RBC) [Entitic mass] 25.8 pg Low 27.0-32.0 [facility] Mean corpuscular hemoglobin concentration (MCHC) determinationOrdered By: Nba Seth on 04-28-2024 MCHC (RBC) [Mass/Vol] 31.9 g/dL Low 32-36 [facility] Mean platelet volume determi nationOrdered By: Nba Seth on 04-28-2024 Platelet mean volume (Bld) [Entitic vol] 10.5 fL 6.2-12.0 [facility] Monocyte detectionOrdered By : Hubert Hastings on 04-28-2024 Body Fluid Monocytes 21 % [facility] Monocytes/100 WBC (Bld) 21 % [facility] Monocyte percentageOrdered B y: Nba Seth on 04-28-2024 Monocytes/100 WBC (Bld) 7.6 % 0-10 [facility] Mononuclear cells/100 WBC (B alma fld)Ordered By: Hubert Hastings on 04-28-2024 Body Fluid Mononuclear WBCs (%) 92.2 % [facility] Neutrophil percentageOrdered By: Nba Seth on 04-28-2024 Neutrophils/100 WBC (Bld) 79.7 % High 47-70 [facility] No Panel InformationOrdered By: Hubert Hastings on 04-28-2024 Body Fluid Comment 2 SEE COMMENT [facility] Comment on above: .INTERPRETATION OF R ESULTS: Differentiation of transudate and exudate fluid: TRANSUDATE EXUDATE Color- Clear,straw colored Clear,turbid,bloody,purulent RBCs- Usually none to few Often present in high numbers WBCs- Usually none to few Often present in high numbers DIFF Few lymphocytes or Lymphocytes, neutrophils, andCount- mesothelial cells. polymorphonuclear cells . Body Fluid RBC 656 /mm3 [facility] Nucleated red blood cell per centageOrdered By: Nba Seth on 04-28-2024 Nucleated RBC/100 WBC (Bld) [Ratio] 0 % 0-5 [facility] Pathologist interpretation ( Body fld) [Interp]Ordered By: Hubert Hastings on 04-28-2024 Body Fluid Pathologist Comment May follow [facility] Pathologist interpretation o f Body fluid testsOrdered By: Hubert Hastings on 04-28-2024 Pathologist interpretation (Body fld) [Interp] Reviewed [facility] Comment on above: Previous reported re sult: May follow Edited by: INGRID on 06/01/24:1405SEE REPORT IN PATIENT'S EMR AMENDED REPORT 06/01/24 1405 PATH COMM/BF previously reported as: May follow Platelet countOrdered By: Yogesh Seth on 04-28-2024 Platelets (Bld) [#/Vol] 218 10*3/uL 150-450 [facility] Polymorphonuclear (PMN) leuk ocyte countOrdered By: Hubert Hastings on 04-28-2024 Body Fluid Polynuclear WBCs (%) 7.8 % [facility] Polymorphonuclear cells (Bod y fld) [#/Vol]Ordered By: Hubert Hastings on 04-28-2024 Body Fluid Polynuclear WBCs (#) 0.014 10^3/uL [facility] Potassium (Unsp spec) [Mass/ Vol]Ordered By: Nba Seth on 04-28-2024 Potassium [Moles/Vol] 3.9 mmol/L 3.3-5.1 [facility] Potassium measurement (mass/ volume)Ordered By: Nba Seth on 04-28-2024 Potassium (Unsp spec) [Mass/Vol] 3.9 mmol/L 3.3-5.1 [facility] Protein, Body Fluidon 2024 Protein [Mass/Vol] 3.8 g/dL Normal Not Establ. [facility] Comment on above: Performed By: #### L 500.2500, L300.3900, L001.0705, L504.2610, L100.0100 #### [facility] Laboratory [address] [place], [address] Prothrombin Time w/INRon INR Coag (PPP) [Relative time] 1.4 {INR} Normal [facility] Comment on above: Performed By: #### L 501.080 #### [facility] [address] [place], [address] PT Coag (PPP) [Time] 17.3 s High 11.7-14.9 [facility] Comment on above: Performed By: #### L 501.080 #### [facility] [address] [place], [address] Prothrombin timeOrdered By: Nba Seth on 04-28-2024 PT Coag (PPP) [Time] 17.3 s High 11.7-14.9 [facility] RBC Auto (Bld) [#/Vol]Ordere d By: Nba Seth on 04-28-2024 RBC (Bld) [#/Vol] 5.23 10*6/uL 4.6-6.2 [facility] Segmented neutrophils (Body fld) [#/Vol]Ordered By: Hubert Hastings on 04-28-2024 Body Fluid Neutrophils 9 % [facility] Serum creatinine measurement (mass/volume)Ordered By: Nba Seth on 04-28-2024 Creatinine [Mass/Vol] 0.99 mg/dL 0.70-1.20 [facility] Serum glucose measurement (m ass/volume)Ordered By: Nba Seth on 04-28-2024 Glucose [Mass/Vol] 136 mg/dL High 70-99 [facility] Serum or plasma calcium jocelyn urement (mass/volume)Ordered By: Nba Rolo on 04-28-2024 Calcium [Mass/Vol] 10.2 mg/dL 7.6-11.0 [facility] Serum or plasma urea nitroge n measurement (mass/volume)Ordered By: Nba Rolo on 04-28-2024 Urea nitrogen [Mass/Vol] 24 mg/dL High 4-19 [facility] Sodium levelOrdered By: Kayleighmichael felix Seth on 04-28-2024 Sodium [Moles/Vol] 137 mmol/L 133-145 [facility] Special Stain Group IIon Special Stain Group II Patient Age/Sex Location Account Attending Physician BLAYNE MORALES 74/M [facility] [id number] Dr. Luis Nieto, Specimen: [id number] Received: 04/28/24 Status: BEATRICE [place] Num: [id number] Spec Type: Fluid Subm Dr: Dr. Luis Nieto DO HEADER OPERATION: Thoracentesis PRE-OP DIAGNOSIS: Right pleural effusion TISSUE SUBMITTED: Thoracentesis fluid for cytology DIAGNOSIS CYTOLOGY Right pleural effusion, cytology and cell block:Mesothelial cells and light mixed inflammationFlo lind MD, 05/02/2024 CYTOLOGY STUDY Slides are reviewed. CYTOLOGY GROSS Received is 80 ml of hazy-gold fluid labeled with the patient's name and and designated per the requisition as Thoracentesis fluid. Submitted for cytology preparation including cell block. 04/28/2024 CPT: 68954,51348, TC:4 Signed (signature on file) Dr. Yogi Lind MD 05/02/24 1607 Normal [facility] Comment on above: Performed By: #### L 500.2500, L300.3900, L001.0705, L504.2610, L100.0100 #### [facility] Laboratory [address] [facility] [place], [address] Specific [place], Body Fluid on 04-28-2024 SP.GR./BF 1.026 Normal [facility] Comment on above: Performed By: #### L 500.2500, L300.3900, L001.0705, L504.2610, L100.0100 #### [facility] [address] [facility] [place], [place], [address] Specific gravity (Body fld) [Rel density]Ordered By: Nba Seth on 04-28-2024 Body Fluid Specific [place] 1.026 [facility] Specimen source Nom (Body fl d)Ordered By: Hubert Hastings on 04-28-2024 Body Fluid Source PLEURAL FLUID [facility] Specimen source identificati on of body fluidOrdered By: Hubert Hastings on 04-28-2024 Specimen source Nom (Body fld) PLEURAL FLUID [facility] Thoracentesis W USon 025 Thoracentesis W [facility] Imaging Services [address] [place], [place] [address] Thoracentesis W MR#: [id number] Acct: [id number] Name: BLAYNE MORALES Rep #: [id number] : 1950 M 74 From: Abhay kilgore MD PCP: Evelia Gil [facility], MUSIC THERAPY SPECIALIST-C Status: ADM IN Study: Thoracentesis W US Date of Exam: 04/28/24 Exam# [id number] Ordering Dr: Hubert Hastings DO PROCEDURE: THORACENTESIS W US REASON FOR EXAM: R PLEURAL EFFUSION TECHNIQUE: The procedure as well as the benefits and possible complications including infection and bleeding and pneumothorax were explained to the patient. Informed consent was obtained. The overlying skin was prepped and draped in usual sterile fashion. Following local anesthetic application, a 5 [place] catheter was placed into the right hemithorax. Clear jered colored fluid was aspirated. A total of 1420 mL was aspirated. A 100 mL sample was sent to the laboratory. A chest radiograph was ordered. No immediate complication noted. COMPARISON: None. FINDINGS: 1420 mL of jered colored fluid was aspirated. A 100 mL sample was sent to the laboratory. US/Thoracentesis W US IMPRESSION: Successful right ultrasound-guided thoracentesis. Reading Location: [place] [address] CC: [facility] MUSIC THERAPY SPECIALIST-C Evelia Gil; Dr. Hubert Hastings DO Secretary Bookkeeper: Signed Normal [facility] WBC (Body fld) [#/Vol]Ordere d By: Hubert Hastings on 04-28-2024 Body Fluid WBC 159 /mm3 [facility] Comment on above: Previous reported re sult: 0.179 10^3/uLEdited by: RENETTA on 04/28/24:1228 AMENDED REPORT 04/28/24 1228 WBC/BF previously reported as: 0.179 10^3/uL White blood cell (WBC) count Ordered By: Nba Seth on 04-28-2024 WBC (Bld) [#/Vol] 10.0 10*3/uL 4.4-11.0 [facility] Activated partial thrombopla stin time (aPTT) in platelet poor plasma by coagulation aOrdered By: Hubert Hastings on 04-27-2024 aPTT Coag (PPP) [Time] 35.5 s 24.1-36.2 [facility] Basic Metabolic Profile (BMP )on 04-27-2024 BUN/CRE 20.7 RATIO High 10-20 [facility] Comment on above: Performed By: #### L 500.2500, L300.3900, L001.0705, L504.2610, L100.0100 #### [facility] Laboratory [address] [place], [address] Calcium [Mass/Vol] 10.7 mg/dL Normal 7.6-11.0 [facility] Comment on above: Performed By: #### L 500.2500, L300.3900, L001.0705, L504.2610, L100.0100 #### [facility] [address] [place], [address] Chloride [Moles/Vol] 102 mmol/L Normal 98-108 [facility] Comment on above: Performed By: #### L 500.2500, L300.3900, L001.0705, L504.2610, L100.0100 #### [facility] [address] [place], [address] CO2 [Moles/Vol] 24.3 mmol/L Normal 21.0-32.0 [facility] Comment on above: Performed By: #### L 500.2500, L300.3900, L001.0705, L504.2610, L100.0100 #### [facility] [address] [place], [address] Creatinine [Mass/Vol] 0.97 mg/dL Normal 0.70-1.20 [facility] Comment on above: Performed By: #### L 500.2500, L300.3900, L001.0705, L504.2610, L100.0100 #### [facility] [address] [place], [address] ECRCL 79.05 ml/min Normal 50-250 [facility] Comment on above: Performed By: #### L 500.2500, L300.3900, L001.0705, L504.2610, L100.0100 #### [facility] [address] [place], [address] GAP 13 Normal 5-15 [facility] Comment on above: Performed By: #### L 500.2500, L300.3900, L001.0705, L504.2610, L100.0100 #### [facility] [address] [place], [address] GFR/1.73 sq M.predicted among non-blacks MDRD (S/P/Bld) [Vol rate/Area] 83 mL/min/{1.73_m2} Normal >60 [facility] Comment on above: Result Comment: mL/m in/1.73m2 CKD-EPI Creatinine Equation (2020) Performed By: #### L 500.2500, L300.3900, L001.0705, L504.2610, L100.0100 #### [facility] [address] [place], [address] Glucose [Mass/Vol] 153 mg/dL High 70-99 [facility] Comment on above: Performed By: #### L 500.2500, L300.3900, L001.0705, L504.2610, L100.0100 #### [facility] [address] [place], [address] Potassium [Moles/Vol] 4.1 mmol/L Normal 3.3-5.1 [facility] Comment on above: Performed By: #### L 500.2500, L300.3900, L001.0705, L504.2610, L100.0100 #### [facility] [address] [place], [address] Sodium [Moles/Vol] 139 mmol/L Normal 133-145 [facility] Comment on above: Performed By: #### L 500.2500, L300.3900, L001.0705, L504.2610, L100.0100 #### [facility] [address] [place], [address] Urea nitrogen [Mass/Vol] 20 mg/dL High 4-19 [facility] Comment on above: Performed By: #### L 500.2500, L300.3900, L001.0705, L504.2610, L100.0100 #### [facility] [address] [place], [address] Bedside Glucoseon 04-27-2024 FINGERSTICK GLU 166 mg/dL High 74-106 [facility] Comment on above: Result Comment: KECIA GEMENT OF PATIENT CARE PER NURSING PROTOCOL Performed By: #### L 500.2500, L300.3900, L001.0705, L504.2610, L100.0100 #### [facility] [address] [place], [address] FINGERSTICK GLU 174 mg/dL High 74-106 [facility] Comment on above: Result Comment: KECIA GEMENT OF PATIENT CARE PER NURSING PROTOCOL Performed By: #### L 500.2500, L300.3900, L001.0705, L504.2610, L100.0100 #### [facility] [address] [place], [address] FINGERSTICK GLU 194 mg/dL High 74-106 [facility] Comment on above: Result Comment: KECIA GEMENT OF PATIENT CARE PER NURSING PROTOCOL Performed By: #### L 300.3900 #### [facility] [address] [place], [address] FINGERSTICK GLU 169 mg/dL High 74-106 [facility] Comment on above: Result Comment: KECIA GEMENT OF PATIENT CARE PER NURSING PROTOCOL Performed By: #### L 300.3900 #### [facility] [address] [place], [address] CBC W/Diff, Automatedon 03- 0-2024 Absolute Lymph 0.96 X10 3/uL Normal 0.83-4.51 [facility] Comment on above: Performed By: #### L 500.2500, L300.3900, L001.0705, L504.2610, L100.0100 #### [facility] [address] [place], [address] Absolute Neut 7.6 X10 3/uL Normal 2.0-7.7 [facility] Comment on above: Performed By: #### L 500.2500, L300.3900, L001.0705, L504.2610, L100.0100 #### [facility] [address] [place], [address] Basophils/100 WBC (Bld) 0.5 % Normal 0-1 [facility] Comment on above: Performed By: #### L 500.2500, L300.3900, L001.0705, L504.2610, L100.0100 #### [facility] [address] [place], [address] Eosinophils/100 WBC (Bld) 2.4 % Normal 0-5 [facility] Comment on above: Performed By: #### L 500.2500, L300.3900, L001.0705, L504.2610, L100.0100 #### [facility] [address] [place], [address] Erythrocyte distribution width (RBC) [Ratio] 16.5 % High 11.6-14.6 [facility] Comment on above: Performed By: #### L 500.2500, L300.3900, L001.0705, L504.2610, L100.0100 #### [facility] [address] [place], [address] Hematocrit (Bld) [Volume fraction] 45.3 % Normal 40-54 [facility] Comment on above: Performed By: #### L 500.2500, L300.3900, L001.0705, L504.2610, L100.0100 #### [facility] [address] [place], [address] Hemoglobin (Bld) [Mass/Vol] 14.2 g/dL Normal 13.0-16.5 [facility] Comment on above: Performed By: #### L 500.2500, L300.3900, L001.0705, L504.2610, L100.0100 #### [facility] [address] [place], [address] IG% 0.600 Normal 0.0-0.9 [facility] Comment on above: Result Comment: IG% - Immature Granulocytes (promyelocytes, myelocytes and metamyelocytes) > 1% indicates that a LEFT SHIFT is Present. Performed By: #### L 500.2500, L300.3900, L001.0705, L504.2610, L100.0100 #### [facility] [address] [place], [address] Lymphocytes/100 WBC (Bld) 10.0 % Low 19-41 [facility] Comment on above: Performed By: #### L 500.2500, L300.3900, L001.0705, L504.2610, L100.0100 #### [facility] [address] [place], [address] MCH (RBC) [Entitic mass] 25.4 pg Low 27.0-32.0 [facility] Comment on above: Performed By: #### L 500.2500, L300.3900, L001.0705, L504.2610, L100.0100 #### [facility] [address] [place], [address] MCHC (RBC) [Mass/Vol] 31.3 g/dL Low 32-36 [facility] Comment on above: Performed By: #### L 500.2500, L300.3900, L001.0705, L504.2610, L100.0100 #### [facility] [address] [place], [address] MCV (RBC) [Entitic vol] 81.0 fL Normal 80-94 [facility] Comment on above: Performed By: #### L 500.2500, L300.3900, L001.0705, L504.2610, L100.0100 #### [facility] [address] [place], [address] Monocytes/100 WBC (Bld) 7.3 % Normal 0-10 [facility] Comment on above: Performed By: #### L 500.2500, L300.3900, L001.0705, L504.2610, L100.0100 #### [facility] [address] [place], [address] Neutrophils/100 WBC (Bld) 79.2 % High 47-70 [facility] Comment on above: Performed By: #### L 500.2500, L300.3900, L001.0705, L504.2610, L100.0100 #### [facility] [address] [place], [address] Nucleated RBC (Bld) [#/Vol] 0 10*3/uL Normal 0-5 [facility] Comment on above: Performed By: #### L 500.2500, L300.3900, L001.0705, L504.2610, L100.0100 #### [facility] [address] [place], [address] Platelet mean volume (Bld) [Entitic vol] 10.5 fL Normal 6.2-12.0 [facility] Comment on above: Performed By: #### L 500.2500, L300.3900, L001.0705, L504.2610, L100.0100 #### [facility] [address] [place], [address] Platelets (Bld) [#/Vol] 235 10*3/uL Normal 150-450 [facility] Comment on above: Performed By: #### L 500.2500, L300.3900, L001.0705, L504.2610, L100.0100 #### [facility] [address] [place], [address] RBC (Bld) [#/Vol] 5.59 10*6/uL Normal 4.6-6.2 [facility] Comment on above: Performed By: #### L 500.2500, L300.3900, L001.0705, L504.2610, L100.0100 #### [facility] [address] [place], [address] RDW SD 47.3 fl High 35.1-43.9 [facility] Comment on above: Performed By: #### L 500.2500, L300.3900, L001.0705, L504.2610, L100.0100 #### [facility] [address] [place], [address] WBC (Bld) [#/Vol] 9.6 10*3/uL Normal 4.4-11.0 [facility] Comment on above: Performed By: #### L 500.2500, L300.3900, L001.0705, L504.2610, L100.0100 #### [facility] [address] [place], [place], [address] Echocardiogram study reportO rdered By: Deedee Torres on 04-27-2024 Study report [facility] [address] [place] [address] Echo Complete 04/27/24 1002 MR#: [id number] Acct: [id number] Name: BLAYNE MORALES Rep #:[id number] : 1950 74 From: Deedee jaimes MD Attending Dr: Dr. Luis Nieto DO Status: ADM IN Ordering Dr: Hubert Hastings DO Da te: 04/25/24 Location: U Sex: M C Admitted: 04/25/24 Reason For Study Reason For Study: CHF Procedure This was a 2D Doppler, Color Flow transthoracic echocardiogram. The study was technically difficult. Definity deferred due to increased pulmonary pressure. Exam performed portable in patient room. Left Ventricle Normal LV size. The estimated ejection fraction is 70 %. Unable to assess diastolic dysfunction. No regional wall motion abnormalities noted. Right Ventricle Moderately dilated right ventricle. Normal systolic function. Atria There is mild biatrial dilatation. No doppler evidence for ASD. Mitral Valve There is moderate mitral annular calcification. There is no mitral valve stenosis. Trivial mitral valve insufficiency. Tricuspid Valve There is no tricuspid stenosis. Trivial tricuspid valve insufficiency. Pulmonaryartery systolic pressure is 90 mmHg. Severe pulmonary hypertension. Aortic Valve Moderate diffuse aortic valve thickening. Moderate aortic stenosis. No aortic valve insufficiency. Pulmonic Valve There is no pulmonic valvular stenosis. No pulmonic valve insufficiency. Great Vessels Normal sized aortic root. Pericardium/Pleural No pericardial effusion. MMode/2D Measurements & Calculations LVIDd: 3.7 cm IVSd: 1.3 cm LVOT diam: 2.0 cm LVIDs: 2.4 cm LVPWd: 1.4 cm LVOT area: 3.1 cm2 RVDd: 3.9 cm FS: 35.3 % ____ Ao root diam: 3.5 cm LAV(MOD-bp): 67.2 ml LVAd ap4: 22.9 cm2 LAV(MOD-bp) Indexed: 30.2 ml/m2 LVLd ap4: 7.9 cm LAV(MOD-sp2): 61.6 ml EDV(MOD-sp4): 56.6 ml LAV(MOD-sp4): 67.0 ml EDV(sp4-el): 56.6 ml LVAs ap4: 12.6 cm2 LVLs ap4: 6.8 cm ESV(MOD-sp4): 21.9 ml ESV(sp4-el): 19.9 ml EF(MOD-sp4): 61.4 % EF(sp4-el): 64.8 % SV(MOD-sp4): 34.7 ml SV(sp4-el): 36.6 ml LA A4 area: 22.8 cm2 SI(MOD-sp4): 15.6 ml/m2 ___ RA A4 area: 24.3 cm2 TAPSE: 2.0 cm Doppler Measurements & Calculations MV E max shelia: 111.3 cm/sec Ao V2 max: 296.4 cm/sec LV V1 max: 86.9 cm/sec Ao max P.2 mmHg LV V1 max P.1 mmHg Ao V2 mean: 205.7 cm/sec LV V1 mean P.7 mmHg Ao mean P.1 mmHg LV V1 mean: 61.0 cm/sec Ao V2 VTI: 51.6 cm LV V1 VTI: 16.1 cm AV (velocity ratio): 0.31 GEORGETTE(I,D): 0.96 cm2 GEORGETTE(V,D): 0.90 cm2 SV(LVOT): 49.4 ml PA V2 max: 81.9 cm/sec TR max shelia: 456.4 cm/sec TR max P.3 mmHg ECHO/Echo Complete Interpretation Summary The estimated ejection fraction is 70 %. Moderately dilated right ventricle. There is mild biatrial dilatation. Trivial mitral valve insufficiency. Severe pulmonary hypertension. Moderate aortic stenosis. Ordering Physician: Hubert Hastings Referring Physician: EVELIA GIL Performed By: Holly Ray RDCS 04/27/24 1339 Date _ Deedee Torres MD CC: [facility] IRENE Gil; Dr. Hubert Hastings DO; Dr. Luis Nieto DO ~ Date Dictated: 04/27/24 1002 Date Transcribed: 04/27/24 133 Secretary Bookkeeper: Signed [facility] Work Phone: Electrocardiogram reportOrde red By: Blayne Cedillo on 04-27-2024 EKG study [facility] Cardiovascular Services [address] [place] [address] 12 Lead EKG 04/25/24 1701 MR#: [id number] Acct: [id number] Name: BLAYNE MORALES Rep #:[id number] : 1950 74 From: Blayne aguirre MD Attending Dr: Dr. Luis Nieto DO Status: ADM IN Ordering Dr: Cindy Mnedez DO Date: 10/12 Location: [facility] Sex: M C Admitted: 04/25/24 Test Reason : Blood Pressure : */* mmHG Vent. Rate : 107 BPM Atrial Rate : * BPM P-R Int : * ms QRS Dur : 84 ms QT Int : 330 ms P-R-T Axes : * 120 18 degrees QTcB Int : 440 ms Atrial fibrillation with rapid ventricular response Right axis deviation Abnormal ECG Confirmed by Blayne Cedillo ([id number]), film and video editor MARSHA STAPLETON ([id number]) on 04/27/2024 10:56:52 AM Referred By: Hubert Hastings Confirmed By: Blayne Cedillo 04/27/24 1056 Date _ Blayne Cedillo MD CC: [facility] IRENE Gil; Dr. Hubert Hastings DO; Dr. Luis Nieto DO; Dr. Cindy Mendez DO ~ Signed [facility] Other Phone: LDHon 04-27-2024 LDH 238 U/L Normal 87-241 [facility] Comment on above: Result Comment: Hemo lysis present, Results??could be affected. ?? Performed By: #### L 500.2500, L300.3900, L001.0705, L504.2610, L100.0100 #### [facility] Laboratory [address] [place], [address] Lactate dehydrogenase (LDH) measurementOrdered By: Nba Seth on 04-27-2024 LDH [Catalytic activity/Vol] 238 U/L 87-241 [facility] Comment on above: Hemolysis present, R esults could be affected. Partial Thromboplast Timeon 04-27-2024 aPTT Coag (Bld) [Time] 35.5 s Normal 24.1-36.2 [facility] Comment on above: Performed By: #### L 501.080 #### [facility] [address] [place], [address] Protein, Totalon 04-27-2024 T PROT 7.5 g/dL Normal 5.9-8.4 [facility] Comment on above: Performed By: #### L 500.2500, L300.3900, L001.0705, L504.2610, L100.0100 #### [facility] [address] [place], [address] Prothrombin Time w/INRon INR Coag (PPP) [Relative time] 1.7 {INR} Normal [facility] Comment on above: Performed By: #### L 501.080 #### [facility] [address] [place], [address] PT Coag (PPP) [Time] 20.0 s High 11.7-14.9 [facility] Comment on above: Performed By: #### L 501.080 #### [facility] [address] [place], [address] INR Coag (PPP) [Relative time] 2.7 {INR} Normal [facility] Comment on above: Performed By: #### L 500.2500, L300.3900, L001.0705, L504.2610, L100.0100 #### [facility] [address] [place], [address] PT Coag (PPP) [Time] 29.6 s High 11.7-14.9 [facility] Comment on above: Performed By: #### L 500.2500, L300.3900, L001.0705, L504.2610, L100.0100 #### [facility] [address] [place], [address] Total proteinOrdered By: Kayleigh Seth on 04-27-2024 Protein [Mass/Vol] 7.5 g/dL 5.9-8.4 [facility] aPTT Coag (PPP) [Time]Ordere d By: Hubert Hastings on 04-27-2024 aPTT Coag (Bld) [Time] 35.5 s 24.1-36.2 [facility] Basic Metabolic Profile (BMP )on 04-26-2024 BUN/CRE 18.3 RATIO Normal 10-20 [facility] Comment on above: Performed By: #### L 500.3400, L504.2610 #### [facility] [address] [place], [address] Calcium [Mass/Vol] 10.8 mg/dL Normal 7.6-11.0 [facility] Comment on above: Performed By: #### L 500.3400, L504.2610 #### [facility] [address] [place], [address] Chloride [Moles/Vol] 98 mmol/L Normal 98-108 [facility] Comment on above: Performed By: #### L 500.3400, L504.2610 #### [facility] [address] [place], [address] CO2 [Moles/Vol] 22.8 mmol/L Normal 21.0-32.0 [facility] Comment on above: Performed By: #### L 500.3400, L504.2610 #### [facility] [address] [place], [address] Creatinine [Mass/Vol] 0.98 mg/dL Normal 0.70-1.20 [facility] Comment on above: Performed By: #### L 500.3400, L504.2610 #### [facility] [address] [place], [address] ECRCL 78.24 ml/min Normal 50-250 [facility] Comment on above: Performed By: #### L 500.3400, L504.2610 #### [facility] [address] [place], [address] GAP 12 Normal 5-15 [facility] Comment on above: Performed By: #### L 500.3400, L504.2610 #### [facility] [address] [place], [address] GFR/1.73 sq M.predicted among non-blacks MDRD (S/P/Bld) [Vol rate/Area] 82 mL/min/{1.73_m2} Normal >60 [facility] Comment on above: Result Comment: mL/m in/1.73m2 CKD-EPI Creatinine Equation (2020) Performed By: #### L 500.3400, L504.2610 #### [facility] [address] [place], [address] Glucose [Mass/Vol] 158 mg/dL High 70-99 [facility] Comment on above: Performed By: #### L 500.3400, L504.2610 #### [facility] [address] [place], [address] Potassium [Moles/Vol] 4.2 mmol/L Normal 3.3-5.1 [facility] Comment on above: Performed By: #### L 500.3400, L504.2610 #### [facility] [address] [place], [address] Sodium [Moles/Vol] 133 mmol/L Normal 133-145 [facility] Comment on above: Performed By: #### L 500.3400, L504.2610 #### [facility] [address] [place], [address] Urea nitrogen [Mass/Vol] 18 mg/dL Normal 4-19 [facility] Comment on above: Performed By: #### L 500.3400, L504.2610 #### [facility] [address] [place], [address] Bedside Glucoseon 04-26-2024 FINGERSTICK GLU 200 mg/dL High 74-106 [facility] Comment on above: Result Comment: KECIA GEMENT OF PATIENT CARE PER NURSING PROTOCOL Performed By: #### L 500.2500, L300.3900, L001.0705, L504.2610, L100.0100 #### [facility] [address] [place], [address] FINGERSTICK GLU 217 mg/dL High 74-106 [facility] Comment on above: Result Comment: KECIA GEMENT OF PATIENT CARE PER NURSING PROTOCOL Performed By: #### L 501.080 #### [facility] [address] [place], [address] FINGERSTICK GLU 208 mg/dL High 74-106 [facility] Comment on above: Result Comment: KECIA GEMENT OF PATIENT CARE PER NURSING PROTOCOL Performed By: #### L 501.080 #### [facility] [address] [place], [address] FINGERSTICK GLU 168 mg/dL High 74-106 [facility] Comment on above: Result Comment: KECIA GEMENT OF PATIENT CARE PER NURSING PROTOCOL Performed By: #### L 501.080 #### [facility] [address] [place], [address] CBC-Complete Blood Cnt No Di ffon 04-26-2024 Erythrocyte distribution width (RBC) [Ratio] 16.3 % High 11.6-14.6 [facility] Comment on above: Performed By: #### L 500.3400, L504.2610 #### [facility] [address] [place], [address] Hematocrit (Bld) [Volume fraction] 45.0 % Normal 40-54 [facility] Comment on above: Performed By: #### L 500.3400, L504.2610 #### [facility] [address] [place], [address] Hemoglobin (Bld) [Mass/Vol] 14.6 g/dL Normal 13.0-16.5 [facility] Comment on above: Performed By: #### L 500.3400, L504.2610 #### [facility] [address] [place], [address] MCH (RBC) [Entitic mass] 25.8 pg Low 27.0-32.0 [facility] [facility] Comment on above: Performed By: #### L 500.3400, L504.2610 #### [facility] [address] [place], [address] MCHC (RBC) [Mass/Vol] 32.4 g/dL Normal 32-36 [facility] Comment on above: Performed By: #### L 500.3400, L504.2610 #### [facility] [address] [place], [address] MCV (RBC) [Entitic vol] 79.5 fL Low 80-94 [facility] Comment on above: Performed By: #### L 500.3400, L504.2610 #### [facility] [address] [place], [address] Platelet mean volume (Bld) [Entitic vol] 10.1 fL Normal 6.2-12.0 [facility] Comment on above: Performed By: #### L 500.3400, L504.2610 #### [facility] [address] [place], [address] Platelets (Bld) [#/Vol] 241 10*3/uL Normal 150-450 [facility] Comment on above: Performed By: #### L 500.3400, L504.2610 #### [facility] [address] [place], [address] RBC (Bld) [#/Vol] 5.66 10*6/uL Normal 4.6-6.2 [facility] Comment on above: Performed By: #### L 500.3400, L504.2610 #### [facility] [address] [place], [address] RDW SD 46.0 fl High 35.1-43.9 [facility] Comment on above: Performed By: #### L 500.3400, L504.2610 #### [facility] [address] [place], [address] WBC (Bld) [#/Vol] 10.4 10*3/uL Normal 4.4-11.0 [facility] Comment on above: Performed By: #### L 500.3400, L504.2610 #### [facility] [address] [place], [address] Hemoglobin A1con 04-26-2024 HbA1c (Bld) [Mass fraction] 7.0 % Normal <=5.6 [facility] Comment on above: Performed By: #### L 500.3400, L504.2610 #### [facility] [address] [place], [address] Hemoglobin A1c percentageOrd ered By: Hubert Hastings on 04-26-2024 HbA1c (Bld) [Mass fraction] 7.0 % >5.7 [facility] Prothrombin Time w/INRon INR Coag (PPP) [Relative time] 3.4 {INR} Normal [facility] Comment on above: Performed By: #### L 500.3400, L504.2610 #### [facility] [address] [facility] [place], [address] PT Coag (PPP) [Time] 34.7 s High 11.7-14.9 [facility] Comment on above: Performed By: #### L 500.3400, L504.2610 #### [facility] [address] [facility] [place], [address] 12 Lead EKGon 04-25-2024 12 Lead EKG [facility] Cardiovascular Services [address] [place] [address] 12 Lead EKG 04/25/24 1701 MR#: [id number] Acct: [id number] Name: BLAYNE MORALES Rep #: [id number] : 1950 74 From: Blayne Cedillo MD Attending Dr: Dr. Luis Nieto DO Status: A DM IN Ordering Dr: Cindy Mendez DO Date: 04/25/24 Location: [facility] Sex: M C Admitted: 04/25/24 Test Reason : Blood Pressure : */* mmHG Vent. Rate : 107 BPM Atrial Rate : * BPM P-R Int : * ms QRS Dur : 84 ms QT Int : 330 ms P-R-T Axes : * 120 18 degrees QTcB Int : 440 ms Atrial fibrillation with rapid ventricular response Right axis deviation Abnormal ECG Confirmed by Blayne Cedillo ([id number]), film and video editor MARSHA STAPLETON ([id number]) on 04/27/2024 10:56:52 AM Referred By: Hubert Hastings Confirmed By: Blayne Cedillo 04/27/24 1056 Date Blayne Cedillo MD CC: [facility] IRENE Gil; Dr. Hubert Hastings, DO; Dr. Luis Nieto DO; Dr. Cindy Mendez, DO Signed Normal [facility] Absolute neutrophil countOrd ered By: Cindy Mendez on 04-25-2024 Neutrophils (Bld) [#/Vol] 9.7 10*3/uL High 2.0-7.7 [facility] Anion gap in Serum or Plasma Ordered By: Cindy Mendez on 04-25-2024 Anion gap [Moles/Vol] 13 mmol/L 5-15 [facility] Automated blood erythrocyte countOrdered By: Cindy Mendez on 04-25-2024 RBC (Bld) [#/Vol] 5.78 10*6/uL Normal 4.6-6.2 [facility] Comment on above: Performed By: #### L 500.2500, L300.3900, L001.0705, L504.2610, L100.0100 #### [facility] [address] [place], [address] Automated blood hematocrit ( percentage)Ordered By: Cindy Mendez on 04-25-2024 Hematocrit (Bld) [Volume fraction] 45.6 % Normal 40-54 [facility] Comment on above: Performed By: #### L 500.2500, L300.3900, L001.0705, L504.2610, L100.0100 #### [facility] [address] [place], [address] Automated lymphocyte count a s percentage of total leukocytesOrdered By: Cindy Mendez on 04-25-2024 Lymphocytes/100 WBC (Bld) 10.4 % Low 19-41 [facility] Comment on above: Performed By: #### L 500.2500, L300.3900, L001.0705, L504.2610, L100.0100 #### [facility] [address] [place], [address] BUN/creatinine ratioOrdered By: Remus Ungur on 04-25-2024 Urea nitrogen/Creatinine [Mass ratio] 18.5 mg/mg 10-20 [facility] Basic Metabolic Profile (BMP )on 04-25-2024 BUN/CRE 18.5 RATIO Normal -20 [facility] Comment on above: Performed By: #### L 500.2500, L300.3900, L001.0705, L504.2610, L100.0100 #### [facility] [address] [place] [address] ECRCL 83.06 ml/min Normal 50-250 [facility] Comment on above: Performed By: #### L 500.2500, L300.3900, L001.0705, L504.2610, L100.0100 #### [facility] Laboratory [address] [place] [address] GAP 13 Normal 5-15 [facility] Comment on above: Performed By: #### L 500.2500, L300.3900, L001.0705, L504.2610, L100.0100 #### [facility] [address] [place] [address] GFR/1.73 sq M.predicted among non-blacks MDRD (S/P/Bld) [Vol rate/Area] 80 mL/min/{1.73_m2} Normal >60 [facility] Comment on above: Result Comment: mL/m in/1.73m2 CKD-EPI Creatinine Equation (2020) Performed By: #### L 500.2500, L300.3900, L001.0705, L504.2610, L100.0100 #### [facility] [address] [place], [address] Basophil percentageOrdered B y: Remus Ungur on 04-25-2024 Basophils/100 WBC (Bld) 0.4 % Normal 0-1 [facility] Comment on above: Performed By: #### L 500.2500, L300.3900, L001.0705, L504.2610, L100.0100 #### [facility] [address] [place], [address] Bedside Glucoseon 04-25-2024 FINGERSTICK GLU 177 mg/dL High 74-106 [facility] Comment on above: Result Comment: KECIA ABDI OF PATIENT CARE PER NURSING PROTOCOL Performed By: #### L 500.3400, L504.2610 #### [facility] [address] [place], [address] Bilirubin Test strip Ql (U)O rdered By: Cindy Mendez on 04-25-2024 Bilirubin Ql (U) Negative Negative [facility] Bilirubin directOrdered By: Hubert Hastings on 04-25-2024 Bilirubin.direct [Mass/Vol] 0.75 mg/dL High 0.00-0.30 [facility] Bilirubin, totalOrdered By: Hubert Hastings on 04-25-2024 Bilirubin [Mass/Vol] 1.40 mg/dL High 0.00-1.30 [facility] Body fluid lactate dehydroge nase measurement (enzymatic activity/volume) by pyruvateOrdered By: Hubert Hastings on 04-25-2024 LDH Pyruvate to lactate reaction (Body fld) [Catalytic activity/Vol] 92 Units/L Not Establ. [facility] Body fluid protein measureme nt (mass/volume)Ordered By: Hubert Hastings on 04-25-2024 Protein (Body fld) [Mass/Vol] 3.8 g/dL Not Establ. [facility] CBC W/Diff, Automatedon Absolute Lymph 1.29 X10 3/uL Normal 0.83-4.51 [facility] Comment on above: Performed By: #### L 500.2500, L300.3900, L001.0705, L504.2610, L100.0100 #### [facility] [address] [place], [address] Absolute Neut 9.7 X10 3/uL High 2.0-7.7 [facility] Comment on above: Performed By: #### L 500.2500, L300.3900, L001.0705, L504.2610, L100.0100 #### [facility] [address] [place], [address] IG% 0.300 Normal 0.0-0.9 [facility] Comment on above: Result Comment: IG% - Immature Granulocytes (promyelocytes, myelocytes and metamyelocytes) > 1% indicates that a LEFT SHIFT is Present. Performed By: #### L 500.2500, L300.3900, L001.0705, L504.2610, L100.0100 #### [facility] [address] [place], [address] Nucleated RBC (Bld) [#/Vol] 0 10*3/uL Normal 0-5 [facility] Comment on above: Performed By: #### L 500.2500, L300.3900, L001.0705, L504.2610, L100.0100 #### [facility] [address] [place], [address] RDW SD 45.1 fl High 35.1-43.9 [facility] Comment on above: Performed By: #### L 500.2500, L300.3900, L001.0705, L504.2610, L100.0100 #### [facility] [address] [place], [address] Carbon dioxide, total [Moles /volume] in Central venous bloodOrdered By: Cindy Mendez on 04-25-2024 CO2 [Moles/Vol] 22.0 mmol/L Normal 21.0-32.0 [facility] Comment on above: Performed By: #### L 500.2500, L300.3900, L001.0705, L504.2610, L100.0100 #### [facility] [address] [place], [address] Chest 1 View (Portable)on Chest 1 View (Portable) [facility] Imaging Services [address] [place] [address] Chest 1 View (Portable) MR#: [id number] Acct: [id number] Name: LBAYNE MORALES Rep #: [id number] : 1950 M 74 From: Don Rodriguez DO PCP: VIKRAM Bower, MUSIC THERAPY SPECIALIST-C Status: REG ER Study: Chest 1 View (Portable) Date of Exam: 04/25/24 Exam# [id number] Ordering Dr: Cindy Mendez DO PROCEDURE: CHEST 1 VIEW (PORTABLE) REASON FOR EXAM: Dyspnea TECHNIQUE: Frontal view of the chest. COMPARISON: Chest radiograph dated 04/07/2024 FINDINGS: Heart size is moderately enlarged. Right basilar opacification, no pneumothorax. The bones are unremarkable. RAD/Chest 1 View (Portable) IMPRESSION: Cardiomegaly with right basilar opacification, similar in appearance to the prior study, likely representing effusion/atelectasis. Superimposed infection can not be excluded. Reading Location: [facility] CC: [facility] MUSIC THERAPY SPECIALIST-C Evelia Gil; Dr. Cindy Mendez DO Secretary Bookkeeper: Signed Normal [facility] Chest without Contraston Chest without Contrast [facility] Imaging Services [address] [place] [address] Chest without Contrast MR#: [id number] Acct: [id number] Name: BLAYNE MORALES Rep #: [id number] : 1950 M 74 From: Don Rodriguez DO PCP: VIKRAM Bower, MUSIC THERAPY SPECIALIST-C Status: ADM IN Study: Chest without Contrast Date of Exam: 04/25/24 Exam# [id number] Ordering Dr: Hubert Hastings DO PROCEDURE: CHEST WITHOUT CONTRAST REASON FOR EXAM: Right pleural effusion TECHNIQUE: Chest CT without contrast. COMPARISON: Chest radiograph obtained earlier today. FINDINGS: Hardware: None. Lymph nodes: Prominent mediastinal lymph nodes Heart and Vasculature: Normal heart size. No pericardial effusion. Thoracic aorta and pulmonary arteries have normal contours; noncontrast technique limits evaluation. Coronary Artery Calcifications: Present Lungs and Airways: Compressive atelectasis of the right middle and right lower lobe. Pleura: Large right pleural effusion. No pneumothorax. Upper Abdomen: Visualized portions of the upper abdominal viscera are unremarkable. Bones: Degenerative changes of the thoracic spine. CT/Chest without Contrast IMPRESSION: Large right pleural effusion with compressive atelectasis. One or more dose reduction techniques were used (e.g., Automated exposure control, adjustment of the mA and/or kV according to patient size, use of iterative reconstruction technique). Reading Location: [facility] CC: [facility] MUSIC THERAPY SPECIALISTCash Gil; Dr. Hubert Hastings DO Secretary Bookkeeper: Signed Normal [facility] Chloride assayOrdered By: Monica Mendez on 04-25-2024 Chloride [Moles/Vol] 96 mmol/L Low 98-108 [facility] Comment on above: Performed By: #### L 500.2500, L300.3900, L001.0705, L504.2610, L100.0100 #### [facility] Laboratory [address] [facility] [place], [address] Echo Completeon 04-25-2024 Echo Complete [facility] Cardiovascular Services [address] [place] [address] Echo Complete 04/27/24 1002 MR#: [id number] Acct: [id number] Name: BLAYNE MORALES Rep #: [id number] : 1950 74 From: Deedee Torres MD Attending Dr: Dr. Luis Nieto DO Status: A DM IN Ordering Dr: Hubert Hastinsg DO Date: 04/25/24 Location: U Sex: M C Admitted: 04/25/24 Reason For Study Reason For Study: CHF Procedure This was a 2D Doppler, Color Flow transthoracic echocardiogram. The study was technically difficult. Definity deferred due to increased pulmonary pressure. Exam performed portable in patient room. Left Ventricle Normal LV size. The estimated ejection fraction is 70 %. Unable to assess diastolic dysfunction. No regional wall motion abnormalities noted. Right Ventricle Moderately dilated right ventricle. Normal systolic function. Atria There is mild biatrial dilatation. No doppler evidence for ASD. Mitral Valve There is moderate mitral annular calcification. There is no mitral valve stenosis. Trivial mitral valve insufficiency. Tricuspid Valve There is no tricuspid stenosis. Trivial tricuspid valve insufficiency. Pulmonary artery systolic pressure is 90 mmHg. Severe pulmonary hypertension. Aortic Valve Moderate diffuse aortic valve thickening. Moderate aortic stenosis. No aortic valve insufficiency. Pulmonic Valve There is no pulmonic valvular stenosis. No pulmonic valve insufficiency. Great Vessels Normal sized aortic root. Pericardium/Pleural No pericardial effusion. MMode/2D Measurements Calculations LVIDd: 3.7 cm IVSd: 1.3 cm LVOT diam: 2.0 cm LVIDs: 2.4 cm LVPWd: 1.4 cm LVOT area: 3.1 cm2 RVDd: 3.9 cm FS: 35.3 % Ao root diam: 3.5 cm LAV(MOD-bp): 67.2 ml LVAd ap4: 22.9 cm2 LAV(MOD-bp) Indexed: 30.2 ml/m2 LVLd ap4: 7.9 cm LAV(MOD-sp2): 61.6 ml EDV(MOD-sp4): 56.6 ml LAV(MOD-sp4): 67.0 ml EDV(sp4-el): 56.6 ml LVAs ap4: 12.6 cm2 LVLs ap4: 6.8 cm ESV(MOD-sp4): 21.9 ml ESV(sp4-el): 19.9 ml EF(MOD-sp4): 61.4 % EF(sp4-el): 64.8 % SV(MOD-sp4): 34.7 ml SV(sp4-el): 36.6 ml LA A4 area: 22.8 cm2 SI(MOD-sp4): 15.6 ml/m2 RA A4 area: 24.3 cm2 TAPSE: 2.0 cm Doppler Measurements Calculations MV E max shelia: 111.3 cm/sec Ao V2 max: 296.4 cm/sec LV V1 max: 86.9 cm/sec Ao max P.2 mmHg LV V1 max P.1 mmHg Ao V2 mean: 205.7 cm/sec LV V1 mean P.7 mmHg Ao mean P.1 mmHg LV V1 mean: 61.0 cm/sec Ao V2 VTI: 51.6 cm LV V1 VTI: 16.1 cm AV (velocity ratio): 0.31 GEORGETTE(I,D): 0.96 cm2 GEORGETTE(V,D): 0.90 cm2 SV(LVOT): 49.4 ml PA V2 max: 81.9 cm/sec TR max shelia: 456.4 cm/sec TR max P.3 mmHg ECHO/Echo Complete Interpretation Summary The estimated ejection fraction is 70 %. Moderately dilated right ventricle. There is mild biatrial dilatation. Trivial mitral valve insufficiency. Severe pulmonary hypertension. Moderate aortic stenosis. Ordering Physician: Hubert Hastings Referring Physician: EVELIA GIL Performed By: Holly Ray, BLANQUITA 04/27/24 1339 Date Deedee Torres MD CC: [facility] MUSIC THERAPY SPECIALIST-C Evelia Gil; Dr. Hubert Hastings DO; Dr. Luis Nieto DO Date Dictated: 04/27/24 1002 Date Transcribed: 04/27/24 133 Secretary Bookkeeper: Signed Normal [facility] Emergency Department Summary on 04-25-2024 Emergency Department Summary [facility] Medical Records Department [address] [place] [address] Emergency Department Summary 04/25/24 MR#: [id number] Acct: [id number] Name: BLAYNE MORALES Rep #: [id number] : 1950 74 From: Cindy Mendez DO PCP: VIKRAM Bower, MUSIC THERAPY SPECIALIST-C Status:ADM IN Location: [place] [address] HPI History of Present Illness Chief Complaint: Hypoglycemia Detail of Chief Complaint: Low blood sugar and exertional dyspnea Informant: patient Narrative Narrative: Patient presents to the emergency department complaint low blood sugar that started 3 days ago. States he has not taken insulin in the last 3 days. His blood sugar has been dropping into the 70s. Patient also complains of exertional dyspnea. Patient was seen in the emergency department about a month ago and diagnosed with a right pleural effusion but refused admission to have thoracentesis. Patient states that his father had at that time and had a lot going on so he did not want to stay. He denies any chest pain. Denies fever or chills or sweats. He describes frequent urination. [facility] Medical History Cardiac murmur Chronic kidney disease (CKD) Frequent headaches Hyperlipidemia Paroxysmal atrial fibrillation Atrial fibrillation with rapid ventricular response (01/2021) Essential hypertension Severe protein-calorie malnutrition HELENA (acute kidney injury) Abrasion of cornea, right Diabetes Home Medications ???Medication ???Instructions ???Recorded ???Last Taken ???Type pravastatin 20 mg tablet 20 mg PO DAILY 01/26/21 Unknown Hi story glimepiride 4 mg tablet 4 mg PO DAILY #60 tabs 02/07/21 Un known Rx acetaminophen 500 mg capsule 500 mg PO Q6H PRN fever or pain Unknown History cyanocobalamin (vitamin B-12) 1,000 mcg PO DAILY 11/08/21 Unknow n History 1,000 mcg capsule ferrous sulfate 325 mg (65 mg 325 mg PO .3 x week 11/08/21 Unkno wn History iron) capsule,extended release spironolactone 25 mg tablet 25 mg PO DAILY 11/08/21 Unknown Hi story insulin glargine 100 unit/mL (3 35 unit subcut QPM 01/09/22 Unknow n History mL) subcutaneous pen (Lantus Solostar U-100 Insulin) cholecalciferol (vitamin D3) 1,250 1,250 mcg PO QWEEK 03/08/22 Unkn own History mcg (50,000 unit) capsule metformin 500 mg tablet 500 mg PO DAILY 09/14/22 Unknown H istory tamsulosin 0.4 mg capsule (Flomax) 0.4 mg PO DAILY 09/14/22 Unknown History metoprolol tartrate 50 mg tablet 50 mg PO BID #180 tabs 01/07/23 Un known Rx warfarin 4 mg tablet 4 mg PO DAILY #180 tabs 09/13/23 U nknown Rx Allergy/AdvReac Type Severity Reaction Status Date / Time amlodipine (From Lotrel) Allergy Severe Other Verified 04/25/24 16:35 benazepril (From Lotrel) Allergy Severe Other Verified 04/25/24 16:35 Surgical History History of cataract surgery Social History Smoking Status: Former smoker ROS ROS ED ROS Narrative Hypoglycemia Review of Systems ROS Unobtainable: other Constitutional Constitutional ED: Reports lethargy; Denies chills, fever(s), sweats or weight loss Eyes Eyes: Denies blurry vision, change in vision or diplopia ENT ENT ED: Denies rhinorrhea or sore throat Cardiovascular Cardiovascular: Denies chest pain, orthopnea or racing heartbeat Respiratory/Chest Respiratory/Chest: Reports cough, dyspnea and dyspnea on exertion; Denies orthopnea or sputum Gastrointestinal Gastrointestinal: Denies abdominal pain, diarrhea, nausea or vomiting Genitourinary Genitourinary ED: Denies dysuria, hematuria or urinary frequency Musculoskeletal Musculoskeletal: Denies arthralgias, back pain, myalgias or neck pain Integumentary Denies abscess, Abrasions or rash Neurologic Neurologic: Denies headache(s) or weakness Psychiatric Psychiatric: Denies anxiety, depression or suicidal thoughts Endocrine Endocrinology: Denies polydipsia, polyphagia or polyuria Hematologic/Lymphatic Hematologic/Lymphatic: Denies easy bleeding, easy bruising or lymphadenopathy Allergic/Immunologic Allergic/Immunologic ED: Denies mouth swelling, tongue swelling or urticaria EXAM Physical Exam Const Vital Signs: 04/25/24 16:30 04/25/24 16:34 04/25/24 16:57 Temperature 97.6 F L 97.6 F L Temperature Source Temporal Temporal Pulse Rate 84 87 Respiratory Rate 17 19 H Respiratory Effort Short of Breath Respiratory Pattern Tachypnea Blood Pressure 180/120 H 180/120 H Blood Pressure Mean 140 140 Pulse Ox 93 94 Oxygen Delivery Method Room Air 04/25/24 17:34 04/25/24 18:00 Temperature 97.7 F L 97.8 F Temperature Source Oral Oral Pulse Rate 104 H 104 H (more content not included)... Normal [facility] Eosinophil percentageOrdered By: Cindy Mendez on 04-25-2024 Eosinophils/100 WBC (Bld) 2.8 % Normal 0-5 [facility] Comment on above: Performed By: #### L 500.2500, L300.3900, L001.0705, L504.2610, L100.0100 #### [facility] Laboratory [address] [place], [address] Epithelial cells.squamous LM Ql (Urine sed)Ordered By: Cindy Mendez on 04-25-2024 Epithelial cells.squamous LM.HPF (Urine sed) [#/Area] 0 /[HPF] 0-5 [facility] Erythrocyte distribution wid th ratioOrdered By: Cindy Mendez on 04-25-2024 Erythrocyte distribution width (RBC) [Ratio] 16.2 % High 11.6-14.6 [facility] Comment on above: Performed By: #### L 500.2500, L300.3900, L001.0705, L504.2610, L100.0100 #### [facility] Laboratory [address] [place], [address] Erythrocyte distribution wid th standard deviationOrdered By: Cindy Mendez on 04-25-2024 Erythrocyte distribution width (RBC) [Entitic vol] 45.1 fL High 35.1-43.9 [facility] Estimation of creatinine sami aranceOrdered By: Cindy Mendez on 04-25-2024 Estimated Creatinine Clearance Calc 83.06 ml/min 50-250 [facility] GFR/1.73 sq M.predicted kalani g non-blacks MDRD (S/P/Bld) [Vol rate/Area]Ordered By: Cindy Mendez on 04-25-2024 Estimated GFR (MDRD) Non-Af Amer 80 >60 [facility] Comment on above: mL/min/1.73m2 CKD-EP I Creatinine Equation (2020) Glucose Ql (U)Ordered By: Monica Mendez on 04-25-2024 Urine Glucose (UA) Normal mg/dl Normal [facility] H AND P Exam - [facility] 04-25-2024 H&P Exam - Hospitalist [facility] Medical Records Department [address] [place] [address] H P Exam - Hospitalist 04/25/24 1831 MR#: [id number] Acct: [id number] Name: BLAYNE MORALES Rep #: [id number] : 1950 74 From: Hubert Hastings DO PCP: Evelia Gil Matilde, MUSIC THERAPY SPECIALIST-C Status:ADM IN Location: [facility] [id number] HPI - General General Date of Admission: 04/25/24 Date of Service: 04/25/24 Chief Complaint: Worsening shortness of breath with exertion and concern for hypoglycemic episodes HPI Narrative BLAYNE MORALES, is a 74 M who presented to [facility] ED on 04/25/2024 with worsening shortness of breath with exertion and concern for hypoglycemic episodes. Patient was seen in the ER here on 04/07 for similar concern. Was found on chest x-ray to have cardiomegaly with a large right- sided pleural effusion. Admission was recommended but patient opted to leave AGAINST MEDICAL ADVICE. Noted that his father had just and he was dealing with several things at home. He returned to the ED today with continued shortness of breath with exertion. He also has had reported intermittent episodes of hypoglycemia. He is on Lantus 35 units at night, glimepiride and metformin for diabetes but states that he has not taken his insulin now for several days. States that he has had some blood sugar checks in the 60s to 70s which he notes is low for him, and he had hypoglycemic symptoms with this. In the ED today patient was hypertensive to the 140s systolic and mildly tachycardic. He was breathing comfortably on room air at rest with saturations in the low to mid 90s. Chest x-ray appeared essentially the same as chest x-ray on 04/07. Labs notable for WBC count 12, sodium 131, chloride 96, calcium 11.2. BNP was in the high normal range. Initial troponin was elevated at 77, repeat pending. Notably no ischemic changes were noted on EKG. Patient is a former smoker, quit smoking back in 2005. Given all of these findings, hospitalist was contacted for admission. I saw the patient at bedside in the ED, friend was present. Patient was mildly fatigued appearing but otherwise sitting back comfortably in bed. Patient did answer questions appropriately but was very deliberate with his speech and conversation did take some time. He lives at home alone and reports good functional status at baseline. Denies any recent weight loss. Denies any fevers or chills. Denies any chest pain currently or any recent chest pain episodes. Reports taking home medications as prescribed aside from the long-acting insulin that he is held. No other acute concerns at this time. [facility] Medical History Cardiac murmur Chronic kidney disease (CKD) Frequent headaches Hyperlipidemia Paroxysmal atrial fibrillation Atrial fibrillation with rapid ventricular response (01/2021) Essential hypertension Severe protein-calorie malnutrition HELENA (acute kidney injury) Abrasion of cornea, right Diabetes Home Medications ???Medication ???Instructions ???Recorded ???Last Taken ???Type pravastatin 20 mg tablet 20 mg PO DAILY 01/26/21 Unknown Hi story glimepiride 4 mg tablet 4 mg PO DAILY #60 tabs 02/07/21 Un known Rx acetaminophen 500 mg capsule 500 mg PO Q6H PRN fever or pain Unknown History cyanocobalamin (vitamin B-12) 1,000 mcg PO DAILY 11/08/21 Unknow n History 1,000 mcg capsule ferrous sulfate 325 mg (65 mg 325 mg PO .3 x week 11/08/21 Unkno wn History iron) capsule,extended release spironolactone 25 mg tablet 25 mg PO DAILY 11/08/21 Unknown Hi story insulin glargine 100 unit/mL (3 35 unit subcut QPM 01/09/22 Unknow n History mL) subcutaneous pen (Lantus Solostar U-100 Insulin) cholecalciferol (vitamin D3) 1,250 1,250 mcg PO QWEEK 03/08/22 Unkn own History mcg (50,000 unit) capsule metformin 500 mg tablet 500 mg PO DAILY 09/14/22 Unknown H istory tamsulosin 0.4 mg capsule (Flomax) 0.4 mg PO DAILY 09/14/22 Unknown History metoprolol tartrate 50 mg tablet 50 mg PO BID #180 tabs 01/07/23 Un known Rx warfarin 4 mg tablet 4 mg PO DAILY #180 tabs 09/13/23 U nknown Rx Allergy/AdvReac Type Severity Reaction Status Date / Time amlodipine (From Lotrel) Allergy Severe Other Verified 04/25/24 16:35 benazepril (From Lotrel) Allergy Severe Other Verified 04/25/24 16:35 Surgical History History of cataract surgery Social History Smoking Status: Former smoker ROS Constitutional Constitutional: Reports fatigue; Denies chills, fever(s) or weakness Eyes Eyes: Denies change in vision Cardiovascular Cardiovascular: Reports dyspnea on exertion; Denies chest pain, edema or lightheadedness Respiratory/Chest (more content not included)... Normal [facility] Hemoglobin measurementOrdere d By: Cindy Mendez on 04-25-2024 Hemoglobin (Bld) [Mass/Vol] 14.9 g/dL Normal 13.0-16.5 [facility] Comment on above: Performed By: #### L 500.2500, L300.3900, L001.0705, L504.2610, L100.0100 #### [facility] [address] [place], [address] Immature granulocytes/100 WB C Auto (Bld)Ordered By: Cindy Mendez on 04-25-2024 Immature granulocytes/100 WBC (Bld) 0.300 % 0.0-0.9 [facility] Comment on above: IG% - Immature Granu locytes (promyelocytes, myelocytes and metamyelocytes) > 1% indicates that a LEFT SHIFT is Present. International normalized rat io (INR) calculationOrdered By: Cindy Mendez on 04-25-2024 INR Coag (Bld) [Relative time] 3.1 {INR} [facility] Ketones Test strip Ql (U)Ord ered By: Cindy Mendez on 04-25-2024 Ketones Ql (U) Negative Negative [facility] L499.0042on 04-25-2024 Trop T High Sen 71 ng/L Invalid Interpretation Code <=22 [facility] Comment on above: Result Comment: Crit ical Result(s) Called EAFFOLTER at: 2041 by: MARY??Results read back by same. Performed By: #### L 300.3900 #### [facility] [address] [place], [address] L499.0043on 04-25-2024 Trop T High Sen 76 ng/L Invalid Interpretation Code <=22 [facility] Comment on above: Result Comment: Crit ical Result(s) Called EAFFOLTER at: 2247 by: MARY??Results read back by same. Performed By: #### L 501.080 #### [facility] [address] [place], [address] L501.4021on 04-25-2024 Trop T High Sen 77 ng/L Invalid Interpretation Code <=22 [facility] Comment on above: Result Comment: Crit ical Result(s) Called ASelf at: 1735 by: Mary??Results read back by same. Performed By: #### L 500.2500, L300.3900, L001.0705, L504.2610, L100.0100 #### [facility] [address] [place], [address] L503.7505Ordered By: Cindy keene on 04-25-2024 Natriuretic peptide B (Bld) [Mass/Vol] 849 pg/mL Normal <=900 [facility] Comment on above: Heart Failure Unlike ly: < 300 pg/mLHeart Failure Likely< 50 Years: > 450 pg/mL50-75 Years: > 900 pg/mL>75 Years: > 1800 pg/mL Result Comment: Hear t Failure Unlikely: < 300 pg/mL Heart Failure Likely < 50 Years: > 450 pg/mL 50-75 Years: > 900 pg/mL >75 Years: > 1800 pg/mL Performed By: #### L 500.2500, L300.3900, L001.0705, L504.2610, L100.0100 #### [facility] [address] [place], [place], [id number] LDHon 04-25-2024 LDH 149 U/L Normal 87-241 [facility] Comment on above: Performed By: #### L 500.3400, L504.2610 #### [facility] [address] [place], [address] LDH Pyruvate to lactate reac tion (Body fld) [Catalytic activity/Vol]Ordered By: Hubert Hastings on 04-25-2024 Body Fluid Lactate Dehydrogenase 92 Units/L Not Establ. [facility] - Chemistry and C hemistry - challengeOrdered By: Hubert Hastings on 04-25-2024 AST [Catalytic activity/Vol] 21 U/L <38 [facility] Liver Profileon 04-25-2024 Albumin [Mass/Vol] 4.0 g/dL Normal 3.4-4.8 [facility] Comment on above: Performed By: #### L 500.3400, L504.2610 #### [facility] [address] [place], [address] ALK PHOS 131 U/L High 40-129 [facility] Comment on above: Performed By: #### L 500.3400, L504.2610 #### [facility] [address] [place], [address] ALT [Catalytic activity/Vol] 18 U/L Normal <=46 [facility] Comment on above: Performed By: #### L 500.3400, L504.2610 #### [facility] [address] [place], [address] AST [Catalytic activity/Vol] 21 U/L Normal <=37 [facility] Comment on above: Performed By: #### L 500.3400, L504.2610 #### [facility] [address] [place], [address] Bilirubin [Mass/Vol] 1.40 mg/dL High 0.00-1.30 [facility] Comment on above: Performed By: #### L 500.3400, L504.2610 #### [facility] [address] [place], [address] Bilirubin.direct [Mass/Vol] 0.75 mg/dL High 0.00-0.30 [facility] Comment on above: Performed By: #### L 500.3400, L504.2610 #### [facility] [address] [place], [address] Globulin (S) [Mass/Vol] 3.9 g/dL Normal 2.2-4.2 [facility] Comment on above: Performed By: #### L 500.3400, L504.2610 #### [facility] [address] [place], [address] T PROT 7.9 g/dL Normal 5.9-8.4 [facility] Comment on above: Performed By: #### L 500.3400, L504.2610 #### [facility] [address] [place], [address] Lymphocytes Auto (Unsp spec) [#/Vol]Ordered By: Cindy Mendez on 04-25-2024 Lymphocytes (Bld) [#/Vol] 1.29 10*3/uL 0.83-4.51 [facility] MCV (mean corpuscular volume ) determinationOrdered By: Cindy Mendez on 04-25-2024 MCV (RBC) [Entitic vol] 78.9 fL Low 80-94 [facility] Comment on above: Performed By: #### L 500.2500, L300.3900, L001.0705, L504.2610, L100.0100 #### [facility] [address] [place], [address] Mean corpuscular hemoglobin (MCH) determinationOrdered By: Cindy Mendez on 04-25-2024 MCH (RBC) [Entitic mass] 25.8 pg Low 27.0-32.0 [facility] Comment on above: Performed By: #### L 500.2500, L300.3900, L001.0705, L504.2610, L100.0100 #### [facility] [address] [place], [place], [id number] Mean corpuscular hemoglobin concentration (MCHC) determinationOrdered By: Cindy Mendez on 04-25-2024 MCHC (RBC) [Mass/Vol] 32.7 g/dL Normal 32-36 [facility] Comment on above: Performed By: #### L 500.2500, L300.3900, L001.0705, L504.2610, L100.0100 #### [facility] [address] [place], [address] Mean platelet volume determi nationOrdered By: Cindy Mendez on 04-25-2024 Platelet mean volume (Bld) [Entitic vol] 10.1 fL Normal 6.2-12.0 [facility] Comment on above: Performed By: #### L 500.2500, L300.3900, L001.0705, L504.2610, L100.0100 #### [facility] [address] [facility] [place], [address] Microscopic analysis of urin e for red blood cells (RBC)Ordered By: Cindy Mendez on 04-25-2024 Microscopic analysis of urine for red blood cells (RBC) 0 SEEN /hpf 0-5 [facility] Urine RBC 0 SEEN /hpf 0-5 [facility] Monocyte percentageOrdered B y: Cindy Mendez on 04-25-2024 Monocytes/100 WBC (Bld) 7.4 % Normal 0-10 [facility] Comment on above: Performed By: #### L 500.2500, L300.3900, L001.0705, L504.2610, L100.0100 #### [facility] [address] [place], [address] Mucus LM Ql (Urine sed)Order ed By: Cindy Mendez on 04-25-2024 Mucus Ql (Urine sed) 0 SEEN /hpf [facility] Neutrophil percentageOrdered By: Cindy Mendez on 04-25-2024 Neutrophils/100 WBC (Bld) 78.7 % High 47-70 [facility] Comment on above: Performed By: #### L 500.2500, L300.3900, L001.0705, L504.2610, L100.0100 #### [facility] [address] [place], [address] Nitrite Test strip Ql (U)Ord ered By: Cindy Mendez on 04-25-2024 Nitrite Ql (U) Negative Negative [facility] No Panel InformationOrdered By: Cindy Mendez on 04-25-2024 Troponin T High Sensitivity 77 ng/L High <22 [facility] Comment on above: Critical Result(s) C alled ASelf at: 1735 by: Mary Results read back by same. Nucleated red blood cell per centageOrdered By: Cindy Mendez on 04-25-2024 Nucleated RBC/100 WBC (Bld) [Ratio] 0 % 0-5 [facility] PTH intactOrdered By: Ally Waller on 04-25-2024 Parathyroid Hormone (Intact) 47 pg/mL [facility] PTHINon 04-25-2024 PTH 47 pg/mL Normal [facility] Comment on above: Performed By: #### L 500.3400, L504.2610 #### [facility] [address] [place], [address] Platelet countOrdered By: Monica Mendez on 04-25-2024 Platelets (Bld) [#/Vol] 232 10*3/uL Normal 150-450 [facility] Comment on above: Performed By: #### L 500.2500, L300.3900, L001.0705, L504.2610, L100.0100 #### [facility] [address] [place], [address] Potassium measurement (mass/ volume)Ordered By: Cindy Mendez on 04-25-2024 Potassium [Moles/Vol] 4.0 mmol/L Normal 3.3-5.1 [facility] Comment on above: Performed By: #### L 500.2500, L300.3900, L001.0705, L504.2610, L100.0100 #### [facility] [address] [place], [address] Protein (Body fld) [Mass/Vol ]Ordered By: Hubert Hastings on 04-25-2024 Body Fluid Total Protein 3.8 g/dL Not Establ. [facility] Protein Test strip Ql (U)Ord ered By: Cindy Mendez on 04-25-2024 Protein Ql (U) 30 mg/dl High Negative [facility] Prothrombin Time w/INRon INR Coag (PPP) [Relative time] 3.1 {INR} Normal [facility] Comment on above: Performed By: #### L 300.3900 #### [facility] [address] [place], [address] ([phone] Prothrombin timeOrdered By: Cindy Mendez on 04-25-2024 PT Coag (PPP) [Time] 32.7 s High 11.7-14.9 [facility] Comment on above: Performed By: #### L 300.3900 #### [facility] [address] [place], [place], [id number] (470) Serum creatinine measurement (mass/volume)Ordered By: Cindy Mendez on 04-25-2024 Creatinine [Mass/Vol] 0.99 mg/dL Normal 0.70-1.20 [facility] Comment on above: Performed By: #### L 500.2500, L300.3900, L001.0705, L504.2610, L100.0100 #### [facility] [address] [place], [phone] Serum globulin measurementOr dered By: Hubert Hastings on 04-25-2024 Globulin (S) [Mass/Vol] 3.9 g/dL 2.2-4.2 [facility] Serum glucose measurement (m ass/volume)Ordered By: Cindy Mendez on 04-25-2024 Glucose [Mass/Vol] 183 mg/dL High 70-99 [facility] Comment on above: Performed By: #### L 500.2500, L300.3900, L001.0705, L504.2610, L100.0100 #### [facility] [address] [place], [address] Serum or plasma alanine harden otransferase (ALT) measurementOrdered By: Hubert Hastings on 04-25-2024 ALT [Catalytic activity/Vol] 18 U/L <47 [facility] Serum or plasma albumin jocelyn urement (mass/volume)Ordered By: Hubert Hastings on 04-25-2024 Albumin [Mass/Vol] 4.0 g/dL 3.4-4.8 [facility] Serum or plasma alkaline easton sphatase measurementOrdered By: Hubert Hastings on 04-25-2024 ALP [Catalytic activity/Vol] 131 U/L High 40-129 [facility] Serum or plasma calcium jocelyn urement (mass/volume)Ordered By: Remus Vanessa on 04-25-2024 Calcium [Mass/Vol] 11.2 mg/dL High 7.6-11.0 [facility] Comment on above: Performed By: #### L 500.2500, L300.3900, L001.0705, L504.2610, L100.0100 #### [facility] [address] [place], [place], [id number] Serum or plasma urea nitroge n measurement (mass/volume)Ordered By: Remus Vanessa on 04-25-2024 Urea nitrogen [Mass/Vol] 18 mg/dL Normal 4-19 [facility] Comment on above: Performed By: #### L 500.2500, L300.3900, L001.0705, L504.2610, L100.0100 #### [facility] [address] [place], [place], [id number] Sodium levelOrdered By: Remu s Ungur on 04-25-2024 Sodium [Moles/Vol] 131 mmol/L Low 133-145 [facility] Comment on above: Performed By: #### L 500.2500, L300.3900, L001.0705, L504.2610, L100.0100 #### [facility] [address] [place], [place], [id number] Squamous epithelial cells de tection in urine sediment by light microscopyOrdered By: Cindy Mendez on 04-25-2024 Epithelial cells.squamous LM Ql (Urine sed) 0 SEEN /hpf 0-5 [facility] Troponin T.cardiac High sens itivity method [Mass/Vol]Ordered By: Cindy Mendez on 04-25-2024 Troponin T High Sensitivity 4 Hour 76 ng/L High <22 [facility] Comment on above: Critical Result(s) C randid BARAKFFOLTER at: 7 by: YogiyoORKMAN Results read back by same. Troponin T High Sensitivity 2 Hour 71 ng/L High <22 [facility] Comment on above: Critical Result(s) C mariel MCKEONOLTER at: 2041 by: YogiyoORKMAN Results read back by same. Troponin T.cardiac [Mass/vol ume] in Serum or Plasma by High sensitivity methodOrdered By: Cindy Mendez on 04-25-2024 Troponin T.cardiac High sensitivity method [Mass/Vol] 76 ng/L High <22 [facility] Comment on above: Critical Result(s) C alled EAFFOLTER at: 2247 by: YogiyoORKMAN Results read back by same. Troponin T.cardiac High sensitivity method [Mass/Vol] 71 ng/L High <22 [facility] Comment on above: Critical Result(s) C mariel FROSTTER at: 2041 by: YogiyoORKMAN Results read back by same. Urinalysis, Completeon 04-25 RBC 0 SEEN Normal 0-5 [facility] Comment on above: Order Comment: YVROSE CTOR TO SPECIFY Performed By: #### L 501.080 #### [facility] [address] [place], [place], [id number] BACTERIA 0 SEEN Normal None Seen [facility] Comment on above: Order Comment: YVROSE CTOR TO SPECIFY Performed By: #### L 501.080 #### [facility] [address] [place], [address] EPI,SQUAMOUS 0 SEEN Normal 0-5 [facility] Comment on above: Order Comment: YVROSE CTOR TO SPECIFY Performed By: #### L 501.080 #### [facility] [address] [place], [address] Mucus Ql (Urine sed) 0 SEEN Normal [facility] Comment on above: Order Comment: YVROSE CTOR TO SPECIFY Performed By: #### L 501.080 #### [facility] [address] [place], [address] WBC 0 SEEN Normal 0-5 [facility] Comment on above: Order Comment: YVROSE CTOR TO SPECIFY Performed By: #### L 501.080 #### [facility] [address] [place], [address] Urine blood detectionOrdered By: Cindy Mendez on 04-25-2024 Urine Occult Blood 10 /ul High Negative [facility] Urine clarityOrdered By: Joy Mendez on 04-25-2024 Clarity (U) Clear Clear [facility] Urine color determinationOrd ered By: Cindy Mendez on 04-25-2024 Color (U) Yellow Yellow [facility] Urine glucose detectionOrder ed By: Cindy Mendez on 04-25-2024 Glucose Ql (U) Normal mg/dl Normal [facility] Urine leukocyte esterase det ection by dipstickOrdered By: Cindy Mendez on 04-25-2024 Leukocyte esterase Test strip Ql (U) Negative Negative [facility] Urine pHOrdered By: Cindy Un gur on 04-25-2024 pH (U) 6.0 [pH] 5.0 - 8.0 [facility] Urine sediment bacteria coun t by microscopy (number/high power field)Ordered By: Cindy Mendez on 04-25-2024 Bacteria LM.HPF (Urine sed) [#/Area] 0 /[HPF] None Seen [facility] Urine specific gravity measu rementOrdered By: Cindy Mendez on 04-25-2024 Specific gravity (U) [Rel density] 1.015 1.002-1.03 0 [facility] Urine urobilinogen measureme ntOrdered By: Remus Ungur on 04-25-2024 Urobilinogen Ql (U) Normal mg/dl Normal [facility] Urobilinogen Ql (U)Ordered B y: Remus Ungur on 04-25-2024 Urine Urobilinogen Normal mg/dl Normal [facility] White blood cell (WBC) count Ordered By: Remus Ungur on 04-25-2024 WBC (Bld) [#/Vol] 12.4 10*3/uL High 4.4-11.0 [facility] Comment on above: Performed By: #### L 500.2500, L300.3900, L001.0705, L504.2610, L100.0100 #### [facility] [address] [place], [address] White blood cell countOrdere d By: Remus Ungur on 04-25-2024 Urine WBC 0 SEEN /hpf 0-5 [facility] White blood cell count 0 SEEN /hpf 0-5 [facility] BNP,B-Type NATRIURETIC PEPTI Lilia 04-09-2024 Natriuretic peptide B (Bld) [Mass/Vol] 173.9 pg/mL High 0-100 [facility] Comment on above: Performed By: #### L 500.2500, L300.3900, L001.0705, L504.2610, L100.0100 #### [facility] [address] [place], [place], [id number] Absolute lymphocyte countOrd ered By: ED PROVIDER on 04-07-2024 Lymphocytes Auto (Unsp spec) [#/Vol] 0.96 10*3/uL 0.83-4.51 [facility] Absolute neutrophil countOrd ered By: ED PROVIDER on 04-07-2024 Neutrophils (Bld) [#/Vol] 8.3 10*3/uL High 2.0-7.7 [facility] Automated lymphocyte count a s percentage of total leukocytesOrdered By: ED PROVIDER on 04-07-2024 Lymphocytes/100 WBC Auto (Unsp spec) 9.3 % Low 19-41 [facility] BNP (brain natriuretic pepti de measurement)Ordered By: Carlos Wang on 04-07-2024 Natriuretic peptide B (Bld) [Mass/Vol] 173.9 pg/mL High 0-100 [facility] Basic Metabolic Profile (BMP )on 04-07-2024 BUN/CRE 18.5 RATIO Normal 10-20 [facility] Comment on above: Performed By: #### L 500.2500, L300.3900, L001.0705, L504.2610, L100.0100 #### [facility] [address] [place], [address] CA,Total 11.3 mg/dL High 8.5-10.1 [facility] Comment on above: Performed By: #### L 500.2500, L300.3900, L001.0705, L504.2610, L100.0100 #### [facility] [address] [place], [address] Chloride [Moles/Vol] 102 mmol/L Normal 98-107 [facility] Comment on above: Performed By: #### L 500.2500, L300.3900, L001.0705, L504.2610, L100.0100 #### [facility] [address] [place], [address] CO2 [Moles/Vol] 28.0 mmol/L Normal 21.0-32.0 [facility] Comment on above: Performed By: #### L 500.2500, L300.3900, L001.0705, L504.2610, L100.0100 #### [facility] [address] [place], [address] Creatinine [Mass/Vol] 0.97 mg/dL Normal 0.70-1.30 [facility] Comment on above: Result Comment: The validity of the calculated GFR GFRAA in patients over 70 years has not been determined. Clinical correlation is essential. Performed By: #### L 500.2500, L300.3900, L001.0705, L504.2610, L100.0100 #### [facility] [address] [place], [address] ECRCL 86.17 ml/min Normal [facility] Comment on above: Performed By: #### L 500.2500, L300.3900, L001.0705, L504.2610, L100.0100 #### [facility] [address] [place], [address] EST GFR - AA 97 mL/min Normal >60 [facility] Comment on above: Result Comment: Afri can Bermudian GFR Calc Performed By: #### L 500.2500, L300.3900, L001.0705, L504.2610, L100.0100 #### [facility] [address] [place], [address] GAP 8 Normal 5-15 [facility] Comment on above: Performed By: #### L 500.2500, L300.3900, L001.0705, L504.2610, L100.0100 #### [facility] [address] [place], [address] GFR/1.73 sq M.predicted among non-blacks MDRD (S/P/Bld) [Vol rate/Area] 80 mL/min/{1.73_m2} Normal >60 [facility] Comment on above: Result Comment: Non- GFR Calc Performed By: #### L 500.2500, L300.3900, L001.0705, L504.2610, L100.0100 #### [facility] [address] [place], [address] Glucose [Mass/Vol] 87 mg/dL Normal 74-106 [facility] Comment on above: Performed By: #### L 500.2500, L300.3900, L001.0705, L504.2610, L100.0100 #### [facility] [address] [place], [address] Potassium [Moles/Vol] 4.0 mmol/L Normal 3.5-5.1 [facility] Comment on above: Performed By: #### L 500.2500, L300.3900, L001.0705, L504.2610, L100.0100 #### [facility] [address] [place], [address] Sodium [Moles/Vol] 138 mmol/L Normal 136-145 [facility] Comment on above: Performed By: #### L 500.2500, L300.3900, L001.0705, L504.2610, L100.0100 #### [facility] [address] [place], [address] Urea nitrogen [Mass/Vol] 18 mg/dL Normal 7-18 [facility] Comment on above: Performed By: #### L 500.2500, L300.3900, L001.0705, L504.2610, L100.0100 #### [facility] [address] [place], [address] Basophil percentageOrdered B y: ED PROVIDER on 04-07-2024 Basophils/100 WBC (Bld) 0.5 % 0-1 [facility] Blood urea nitrogen (BUN)/cr eatinine ratioOrdered By: ED PROVIDER on 04-07-2024 Urea nitrogen/Creatinine [Mass ratio] 18.5 mg/mg 10-20 [facility] CBC W/Diff, Automatedon 03-21 Absolute Lymph 0.96 X10 3/uL Normal 0.83-4.51 [facility] Comment on above: Performed By: #### L 500.2500, L300.3900, L001.0705, L504.2610, L100.0100 #### [facility] [address] [place], [address] Absolute Neut 8.3 X10 3/uL High 2.0-7.7 [facility] Comment on above: Performed By: #### L 500.2500, L300.3900, L001.0705, L504.2610, L100.0100 #### [facility] [address] [place], [address] Basophils/100 WBC (Bld) 0.5 % Normal 0-1 [facility] Comment on above: Performed By: #### L 500.2500, L300.3900, L001.0705, L504.2610, L100.0100 #### [facility] [address] [place], [address] Eosinophils/100 WBC (Bld) 1.9 % Normal 0-5 [facility] Comment on above: Performed By: #### L 500.2500, L300.3900, L001.0705, L504.2610, L100.0100 #### [facility] [address] [place], [address] Erythrocyte distribution width (RBC) [Ratio] 15.9 % High 11.6-14.6 [facility] Comment on above: Performed By: #### L 500.2500, L300.3900, L001.0705, L504.2610, L100.0100 #### [facility] [address] [place], [address] Hematocrit (Bld) [Volume fraction] 46.9 % Normal 40-54 [facility] Comment on above: Performed By: #### L 500.2500, L300.3900, L001.0705, L504.2610, L100.0100 #### [facility] [address] [place], [address] Hemoglobin (Bld) [Mass/Vol] 14.6 g/dL Normal 13.0-16.5 [facility] Comment on above: Performed By: #### L 500.2500, L300.3900, L001.0705, L504.2610, L100.0100 #### [facility] [address] [place], [address] IG% 0.400 Normal 0.0-0.9 [facility] Comment on above: Result Comment: IG% - Immature Granulocytes (promyelocytes, myelocytes and metamyelocytes) > 1% indicates that a LEFT SHIFT is Present. Performed By: #### L 500.2500, L300.3900, L001.0705, L504.2610, L100.0100 #### [facility] [address] [place], [address] Lymphocytes/100 WBC (Bld) 9.3 % Low 19-41 [facility] Comment on above: Performed By: #### L 500.2500, L300.3900, L001.0705, L504.2610, L100.0100 #### [facility] [address] [place], [address] MCH (RBC) [Entitic mass] 25.4 pg Low 27.0-32.0 [facility] Comment on above: Performed By: #### L 500.2500, L300.3900, L001.0705, L504.2610, L100.0100 #### [facility] [address] [place], [address] MCHC (RBC) [Mass/Vol] 31.1 g/dL Low 32-36 [facility] Comment on above: Performed By: #### L 500.2500, L300.3900, L001.0705, L504.2610, L100.0100 #### [facility] [address] [place], [address] MCV (RBC) [Entitic vol] 81.6 fL Normal 80-94 [facility] Comment on above: Performed By: #### L 500.2500, L300.3900, L001.0705, L504.2610, L100.0100 #### [facility] [address] [place], [address] Monocytes/100 WBC (Bld) 7.4 % Normal 0-10 [facility] Comment on above: Performed By: #### L 500.2500, L300.3900, L001.0705, L504.2610, L100.0100 #### [facility] [address] [place], [address] Neutrophils/100 WBC (Bld) 80.5 % High 47-70 [facility] Comment on above: Performed By: #### L 500.2500, L300.3900, L001.0705, L504.2610, L100.0100 #### [facility] [address] [place], [address] Nucleated RBC (Bld) [#/Vol] 0 10*3/uL Normal 0-5 [facility] Comment on above: Performed By: #### L 500.2500, L300.3900, L001.0705, L504.2610, L100.0100 #### [facility] [address] [place], [address] Platelet mean volume (Bld) [Entitic vol] 9.8 fL Normal 6.2-12.0 [facility] Comment on above: Performed By: #### L 500.2500, L300.3900, L001.0705, L504.2610, L100.0100 #### [facility] [address] [place], [address] Platelets (Bld) [#/Vol] 227 10*3/uL Normal 150-450 [facility] Comment on above: Performed By: #### L 500.2500, L300.3900, L001.0705, L504.2610, L100.0100 #### [facility] [address] [place], [address] RBC (Bld) [#/Vol] 5.75 10*6/uL Normal 4.6-6.2 [facility] Comment on above: Performed By: #### L 500.2500, L300.3900, L001.0705, L504.2610, L100.0100 #### [facility] [address] [place], [address] RDW SD 46.5 fl High 35.1-43.9 [facility] Comment on above: Performed By: #### L 500.2500, L300.3900, L001.0705, L504.2610, L100.0100 #### [facility] [address] [place], [address] WBC (Bld) [#/Vol] 10.3 10*3/uL Normal 4.4-11.0 [facility] Comment on above: Performed By: #### L 500.2500, L300.3900, L001.0705, L504.2610, L100.0100 #### [facility] [address] [place], [address] Carbon dioxide measurementOr dered By: ED PROVIDER on 04-07-2024 CO2 [Moles/Vol] 28.0 mmol/L 21.0-32.0 [facility] Chest PA and Lateralon 04-07 Chest PA and Lateral [facility] Imaging Services [address] [place] [address] Chest PA and Lateral MR#: [id number] Acct: [id number] Name: BLAYNE MORALES Rep #: [id number] : 1950 M 74 From: James Menchaca MD PCP: VIKRAM Bower, MUSIC THERAPY SPECIALIST-C Status: REG ER Study: Chest PA and Lateral Date of Exam: 04/07/24 Exam# [id number] Ordering Dr: Carlos Wang DO PROCEDURE: CHEST PA AND LATERAL REASON FOR EXAM: Dyspnea TECHNIQUE: Frontal and lateral views of the chest. COMPARISON: 06/14/2022 FINDINGS: Heart size is moderately enlarged. The thoracic aorta is tortuous and calcified. Large right pleural effusion The bones are unremarkable. RAD/Chest PA and Lateral IMPRESSION: Cardiomegaly with large right pleural effusion Reading Location: [facility] CC: [facility] MUSIC THERAPY SPECIALIST-C Evelia Gil; Dr. Carlos Wang, DO Secretary Bookkeeper: Signed Normal [facility] Chloride measurementOrdered By: ED PROVIDER on 04-07-2024 Chloride [Moles/Vol] 102 mmol/L 98-107 [facility] D-Dimer Quantitative (DVT/PE )on 04-07-2024 D-DIMER QUANT 0.60 FEU/ug/m Invalid Interpretation Code 0.27-0.49 [facility] Comment on above: Order Comment: CRITI JUANITA VALUE CALLED TO NHUNG LAM04/07/24 1851 Nikole Everett.RESULTS READ BACK BY SAME. Result Comment: D-Di janina ELEVATED (>0.49): Additional studies and clinical assessments are indicated to conclude diagnosis of: Deep Vein Thrombosis (DVT) or Pulmonary Embolism (PE) Performed By: #### L 500.2500, L300.3900, L001.0705, L504.2610, L100.0100 #### [facility] [address] [place], [place], [id number] D-dimer measurement for deep venous thrombosisOrdered By: Carlos Wang on 04-07-2024 D-Dimer Quantitative (PE/DVT) 0.60 FEU/ug/m High 0.27-0.49 [facility] Comment on above: D-Dimer ELEVATED (>0 .49): Additional studies and clinicalassessments are indicated to conclude diagnosis of:Deep Vein Thrombosis (DVT) or Pulmonary Embolism (PE) Emergency Department Summary on 04-07-2024 Emergency Department Summary [facility] Medical Records Department [address] [place] [address] Emergency Department Summary 04/07/24 MR#: [id number] Acct: [id number] Name: BLAYNE MORALES Rep #: [id number] : 1950 74 From: Carlos Wang DO PCP: VIKRAM Bower, MUSIC THERAPY SPECIALIST-C Status:DEP ER Location: ED HPI History of Present Illness Chief Complaint: Shortness of Breath Informant: patient Onset/Context/Timing Onset: Month(s) (2) Context: gradual Timing: Continuous Quality: Positive for Dyspnea on exertion Worsened by: Exertion Relieved by: Nothing Associated Symptoms cough; Negative for rhinorrhea, post nasal drip, ear pain, fever, sore throat, chills, sweats, clear sputum, white sputum, yellow sputum or green sputum Chest Pain: Positive for None Narrative Narrative: Patient presents with shortness of breath that has been getting worse over the past 2 months. Patient states it is gradually getting worse. Patient states it waxes and wanes. Patient states it is worse with any activity. Patient states nothing makes it better. Patient denies any sore throat or rhinorrhea. Patient admits to a cough but denies any sputum production. Patient denies any fevers or chills. Patient denies any chest pain. [facility] Medical History Cardiac murmur Chronic kidney disease (CKD) Frequent headaches Hyperlipidemia Paroxysmal atrial fibrillation Atrial fibrillation with rapid ventricular response (01/2021) Essential hypertension Severe protein-calorie malnutrition HELENA (acute kidney injury) Abrasion of cornea, right Diabetes Home Medications ???Medication ???Instructions ???Recorded ???Last Taken ???Type pravastatin 20 mg tablet 20 mg PO DAILY 01/26/21 Unknown Hi story glimepiride 4 mg tablet 4 mg PO DAILY #60 tabs 02/07/21 Un known Rx acetaminophen 500 mg capsule 500 mg PO Q6H PRN 11/08/21 Unknown History cyanocobalamin (vitamin B-12) 1,000 mcg PO DAILY 11/08/21 Unknow n History 1,000 mcg capsule ferrous sulfate 325 mg (65 mg 325 mg PO .3 x week 11/08/21 Unkno wn History iron) capsule,extended release spironolactone 25 mg tablet 25 mg PO DAILY 11/08/21 Unknown Hi story insulin glargine 100 unit/mL (3 35 unit subcut QPM 01/09/22 Unknow n History mL) subcutaneous pen (Lantus Solostar U-100 Insulin) cholecalciferol (vitamin D3) 1,250 1,250 mcg PO QWEEK 03/08/22 Unkn own History mcg (50,000 unit) capsule metformin 500 mg tablet 500 mg PO DAILY 09/14/22 Unknown H istory tamsulosin 0.4 mg capsule (Flomax) 0.4 mg PO DAILY 09/14/22 Unknown History metoprolol tartrate 50 mg tablet 50 mg PO BID #180 tabs 01/07/23 Un known Rx warfarin 4 mg tablet 4 mg PO DAILY #180 tabs 09/13/23 U nknown Rx Allergy/AdvReac Type Severity Reaction Status Date / Time amlodipine (From Lotrel) Allergy Severe Other Verified 04/07/24 15:45 benazepril (From Lotrel) Allergy Severe Other Verified 04/07/24 15:45 Surgical History History of cataract surgery Social History Smoking Status: Former smoker ROS ROS ED Constitutional Constitutional ED: Denies chills or fever(s) Eyes Eyes: Denies blurry vision or change in vision ENT ENT ED: Denies rhinorrhea or sore throat Cardiovascular Cardiovascular: Denies chest pain or palpitations Respiratory/Chest Respiratory/Chest: Reports dyspnea; Denies cough Gastrointestinal Gastrointestinal: Denies nausea or vomiting Genitourinary Genitourinary ED: Reports urinary frequency; Denies dysuria or hematuria Musculoskeletal Musculoskeletal: Reports back pain; Denies neck pain Integumentary Denies abscess or rash Neurologic Neurologic: Reports weakness; Denies headache(s) Allergic/Immunologic Allergic/Immunologic ED: Denies mouth swelling or urticaria EXAM Physical Exam Const Vital Signs: 04/07/24 15:45 04/07/24 15:48 04/07/24 16:12 Temperature 98.2 F 98.2 F Temperature Source Oral Oral Pulse Rate 100 100 Respiratory Rate 20 H 20 H Respiratory Effort Respiratory Depth Respiratory Pattern Blood Pressure 137/89 H 137/89 H Blood Pressure Mean 105 105 Pulse Ox 95 94 94 Oxygen Delivery Method Room Air Room Air Room Air Oxygen Flow Rate (L/min) 04/07/24 16:12 04/07/24 16:13 04/07/24 16:48 Temperature 98.2 F Temperature Source Oral Pulse Rate 83 Respiratory Rate 20 H Respiratory Effort Normal Non-Labored Respiratory Depth Normal Respiratory Pattern Normal Blood Pressure 117/67 Blood Pressure Mean 83 Pulse Ox 94 87 Oxygen Delivery Method Room Air Room Air Room Air Oxygen Flow Rate (L/min) 04/07/24 16:54 04/07/24 18: (more content not included)... Normal [facility] Eosinophil percentageOrdered By: ED PROVIDER on 04-07-2024 Eosinophils/100 WBC (Bld) 1.9 % 0-5 [facility] Erythrocyte distribution wid th ratioOrdered By: ED PROVIDER on 04-07-2024 Erythrocyte distribution width (RBC) [Ratio] 15.9 % High 11.6-14.6 [facility] Erythrocyte distribution wid th standard deviationOrdered By: ED PROVIDER on 04-07-2024 Erythrocyte distribution width (RBC) [Entitic vol] 46.5 fL High 35.1-43.9 [facility] Erythrocyte distribution width (RBC) [Ratio] 46.5 fl High 35.1-43.9 [facility] Estimated glomerular filtrat ion rate (GFR) AmericanOrdered By: ED PROVIDER on 04-07-2024 Estimated GFR (MDRD) Amer 97 mL/min >60 [facility] Comment on above: GFR Calc Estimation of creatinine sami aranceOrdered By: ED PROVIDER on 04-07-2024 Estimated Creatinine Clearance Calc 86.17 ml/min [facility] Glomerular filtration rate ( GFR) estimationOrdered By: ED PROVIDER on 04-07-2024 Estimated GFR (MDRD) Non-Af Amer 80 mL/min >60 [facility] Comment on above: Non- GFR Calc GFR/1.73 sq M.predicted among non-blacks MDRD (S/P/Bld) [Vol rate/Area] 80 mL/min/{1.73_m2} >60 [facility] Comment on above: Non- GFR Calc Glucose measurementOrdered B y: ED PROVIDER on 04-07-2024 Glucose [Mass/Vol] 87 mg/dL 74-106 [facility] Hematocrit Auto (Bld) [Volum e fraction]Ordered By: ED PROVIDER on 04-07-2024 Hematocrit (Bld) [Volume fraction] 46.9 % 40-54 [facility] Hemoglobin measurementOrdere d By: ED PROVIDER on 04-07-2024 Hemoglobin (Bld) [Mass/Vol] 14.6 g/dL 13.0-16.5 [facility] Immature granulocytes/100 WB C Auto (Bld)Ordered By: ED PROVIDER on 04-07-2024 Immature granulocytes/100 WBC (Bld) 0.400 % 0.0-0.9 [facility] Comment on above: IG% - Immature Granu locytes (promyelocytes, myelocytes and metamyelocytes) > 1% indicates that a LEFT SHIFT is Present. Influenza virus A and B and SARS-CoV-2 (COVID-19) and Respiratory syncytial virus RNAOrdered By: Carlos Wang on 04-07-2024 SARS-CoV-2 (COVID-19) RNA INO+probe Ql (Unsp spec) [facility] SARS-CoV-2 (COVID-19) RNA INO+probe Ql (Unsp spec) [facility] L501.4020on 04-07-2024 TROPONIN-I HS 13 pg/mL Normal 3.0-78.0 [facility] Comment on above: Order Comment: 'TROP ' Serial specimen #1, #2 or #3: 1 Result Comment: Plea se Note: New Test Units and Gender Specific Reference Ranges. For more information see Policy Stat Procedure [facility] High Sensitivity Troponin (TNIH) and attachments. Performed By: #### L 500.2500, L300.3900, L001.0705, L504.2610, L100.0100 #### [facility] [address] [place], [place], [id number] Lymphocytes Auto (Unsp spec) [#/Vol]Ordered By: ED PROVIDER on 04-07-2024 Lymphocytes (Bld) [#/Vol] 0.96 10*3/uL 0.83-4.51 [facility] Lymphocytes/100 WBC Auto (Un sp spec)Ordered By: ED PROVIDER on 04-07-2024 Lymphocytes/100 WBC (Bld) 9.3 % Low 19-41 [facility] M100.678on 04-07-2024 M100.678 SARS-CoV-2 (COVID 19 ) Negative INFLUENZA A Negative INFLUENZA B Negative RSV PCR Negative Normal [facility] Comment on above: Performed By: #### L 500.2500, L300.3900, L001.0705, L504.2610, L100.0100 #### [facility] [address] [place], [address] MCV (mean corpuscular volume ) determinationOrdered By: ED PROVIDER on 04-07-2024 MCV (RBC) [Entitic vol] 81.6 fL 80-94 [facility] Mean corpuscular hemoglobin (MCH) determinationOrdered By: ED PROVIDER on 04-07-2024 MCH (RBC) [Entitic mass] 25.4 pg Low 27.0-32.0 [facility] Mean corpuscular hemoglobin concentration (MCHC) determinationOrdered By: ED PROVIDER on 04-07-2024 MCHC (RBC) [Mass/Vol] 31.1 g/dL Low 32-36 [facility] Mean platelet volume determi nationOrdered By: ED PROVIDER on 04-07-2024 Platelet mean volume (Bld) [Entitic vol] 9.8 fL 6.2-12.0 [facility] Monocyte percentageOrdered B y: ED PROVIDER on 04-07-2024 Monocytes/100 WBC (Bld) 7.4 % 0-10 [facility] Neutrophil percentageOrdered By: ED PROVIDER on 04-07-2024 Neutrophils/100 WBC (Bld) 80.5 % High 47-70 [facility] Nucleated red blood cell per centageOrdered By: ED PROVIDER on 04-07-2024 Nucleated RBC/100 WBC (Bld) [Ratio] 0 % 0-5 [facility] Platelet countOrdered By: ED PROVIDER on 04-07-2024 Platelets (Bld) [#/Vol] 227 10*3/uL 150-450 [facility] Potassium measurementOrdered By: ED PROVIDER on 04-07-2024 Potassium [Moles/Vol] 4.0 mmol/L 3.5-5.1 [facility] RBC Auto (Bld) [#/Vol]Ordere d By: ED PROVIDER on 04-07-2024 RBC (Bld) [#/Vol] 5.75 10*6/uL 4.6-6.2 [facility] Serum anion gap measurementO rdered By: ED PROVIDER on 04-07-2024 Anion gap [Moles/Vol] 8 mmol/L 5-15 [facility] Serum or plasma calcium jocelyn urement (mass/volume)Ordered By: ED PROVIDER on 04-07-2024 Calcium [Mass/Vol] 11.3 mg/dL High 8.5-10.1 [facility] Serum or plasma creatinine m easurement (mass/volume)Ordered By: ED PROVIDER on 04-07-2024 Creatinine [Mass/Vol] 0.97 mg/dL 0.70-1.30 [facility] Comment on above: The validity of the calculated GFR & GFRAA in patients over 70 years has not been determined. Clinical correlation is essential. Serum or plasma urea nitroge n measurement (mass/volume)Ordered By: ED PROVIDER on 04-07-2024 Urea nitrogen [Mass/Vol] 18 mg/dL -18 [facility] Sodium levelOrdered By: ED P AMBREEN on 04-07-2024 Sodium [Moles/Vol] 138 mmol/L 136-145 [facility] Troponin IOrdered By: Carlos culver on 04-07-2024 Troponin I 13 pg/mL 3.0-78.0 [facility] Comment on above: Please Note: New Jane t Units and Gender Specific Reference Ranges. For more information see Policy Stat Procedure [facility] High Sensitivity Troponin (TNIH) and attachments. Troponin I High Sensitivity 13 pg/mL 3.0-78.0 [facility] Comment on above: Please Note: New Jane t Units and Gender Specific Reference Ranges. For more information see Policy Stat Procedure [facility] High Sensitivity Troponin (TNIH) and attachments. White blood cell (WBC) count Ordered By: ED PROVIDER on 04-07-2024 WBC (Bld) [#/Vol] 10.3 10*3/uL 4.4-11.0 [facility] INR Coag (BldC) [Relative ti me]Ordered By: Susan Biswas on 01-07-2024 INR Coag (Bld) [Relative time] 1.9 {INR} [facility] Comment on above: Critical Value > 4.0 PT Coag (Bld) [Time]Ordered By: Susan Biswas on 01-07-2024 Bedside Prothrombin Time 20.9 SEC High 11.7-14.9 [facility] Protime w/INR Fingerstickon 01-07-2024 INR Coag (PPP) [Relative time] 1.9 {INR} Normal [facility] Comment on above: Result Comment: Crit ical Value > 4.0 Performed By: #### L 501.080 #### [facility] [address] [place], [place], [id number] Protime Coagsen 20.9 SEC High 11.7-14.9 [facility] Comment on above: Performed By: #### L 501.080 #### [facility] [address] [place], [place], [id number] DOrdered By: Eliu Gil on 01-01-2024 Vitamin D 25-Hydroxy 70.3 ng/mL [facility] Comment on above: Vitamin D 25(OH) Sta tus Range Deficiency <20 ng/mL (50nmol/L) Insufficiency 20 - 30 ng/mL (50 - 75 nmol/L) Sufficiency 30 - 100 ng/mL (75 - 250 nmol/L) Toxicity >100 ng/mL (>250 nmol/L) Absolute neutrophil countOrd ered By: [facility] Evelia Gil on 01-01-2024 Neutrophils (Bld) [#/Vol] 9.6 10*3/uL High 2.0-7.7 [facility] Albumin to globulin ratioOrd ered By: [facility] Evelia Gil on 01-01-2024 Albumin/Globulin [Mass ratio] 0.8 {ratio} Low 0.9-2.4 [facility] Basophil percentageOrdered B y: [facility] Evelia Gil on 01-01-2024 Basophils/100 WBC (Bld) 0.4 % 0-1 [facility] Bilirubin, totalOrdered By: [facility] Evelia Gil on 01-01-2024 Bilirubin [Mass/Vol] 1.00 mg/dL 0.20-1.00 [facility] Comment on above: For patients on eltr ombopag therapy, use of Dimension Hale TBIL is not recommended. Blood urea nitrogen (BUN)/cr eatinine ratioOrdered By: [facility] Evelia Gil on 01-01-2024 Urea nitrogen/Creatinine [Mass ratio] 18.4 mg/mg - [facility] CBC W/Diff, Automatedon 12-19 Absolute Lymph 1.06 X10 3/uL Normal 0.83-4.51 [facility] Comment on above: Performed By: #### L 300.3900 #### [facility] [address] [place], [address] Absolute Neut 9.6 X10 3/uL High 2.0-7.7 [facility] Comment on above: Performed By: #### L 300.3900 #### [facility] [address] [place], [address] Basophils/100 WBC (Bld) 0.4 % Normal 0-1 [facility] Comment on above: Performed By: #### L 300.3900 #### [facility] [address] [place], [address] Eosinophils/100 WBC (Bld) 1.4 % Normal 0-5 [facility] Comment on above: Performed By: #### L 300.3900 #### [facility] [address] [place], [address] Erythrocyte distribution width (RBC) [Ratio] 14.2 % Normal 11.6-14.6 [facility] Comment on above: Performed By: #### L 300.3900 #### [facility] [address] [place], [address] Hematocrit (Bld) [Volume fraction] 41.3 % Normal 40-54 [facility] Comment on above: Performed By: #### L 300.3900 #### [facility] [address] [place], [address] Hemoglobin (Bld) [Mass/Vol] 12.8 g/dL Low 13.0-16.5 [facility] Comment on above: Performed By: #### L 300.3900 #### [facility] [address] [place], [address] IG% 0.300 Normal 0.0-0.9 [facility] Comment on above: Result Comment: IG% - Immature Granulocytes (promyelocytes, myelocytes and metamyelocytes) > 1% indicates that a LEFT SHIFT is Present. Performed By: #### L 300.3900 #### [facility] [address] [place], [address] Lymphocytes/100 WBC (Bld) 9.0 % Low 19-41 [facility] Comment on above: Performed By: #### L 300.3900 #### [facility] [address] [place], [address] MCH (RBC) [Entitic mass] 27.2 pg Normal 27.0-32.0 [facility] Comment on above: Performed By: #### L 300.3900 #### [facility] [address] [place], [address] MCHC (RBC) [Mass/Vol] 31.0 g/dL Low 32-36 [facility] Comment on above: Performed By: #### L 300.3900 #### [facility] [address] [place], [address] MCV (RBC) [Entitic vol] 87.9 fL Normal 80-94 [facility] Comment on above: Performed By: #### L 300.3900 #### [facility] [address] [place], [address] Monocytes/100 WBC (Bld) 7.0 % Normal 0-10 [facility] Comment on above: Performed By: #### L 300.3900 #### [facility] [address] [place], [address] Neutrophils/100 WBC (Bld) 81.9 % High 47-70 [facility] Comment on above: Performed By: #### L 300.3900 #### [facility] [address] [place], [address] Nucleated RBC (Bld) [#/Vol] 0 10*3/uL Normal 0-5 [facility] Comment on above: Performed By: #### L 300.3900 #### [facility] [address] [place], [address] Platelet mean volume (Bld) [Entitic vol] 9.8 fL Normal 6.2-12.0 [facility] Comment on above: Performed By: #### L 300.3900 #### [facility] [address] [place], [address] Platelets (Bld) [#/Vol] 273 10*3/uL Normal 150-450 [facility] Comment on above: Performed By: #### L 300.3900 #### [facility] [address] [place], [address] RBC (Bld) [#/Vol] 4.70 10*6/uL Normal 4.6-6.2 [facility] Comment on above: Performed By: #### L 300.3900 #### [facility] [address] [place], [address] RDW SD 45.6 fl High 35.1-43.9 [facility] Comment on above: Performed By: #### L 300.3900 #### [facility] [address] [place], [address] WBC (Bld) [#/Vol] 11.7 10*3/uL High 4.4-11.0 [facility] Comment on above: Performed By: #### L 300.3900 #### [facility] [address] [place], [place], [id number] Carbon dioxide measurementOr dered By: [facility] Evelia Jeyson on 01-01-2024 CO2 [Moles/Vol] 25.0 mmol/L 21.0-32.0 [facility] Chloride measurementOrdered By: [facility] Evelia Gil on 01-01-2024 Chloride [Moles/Vol] 106 mmol/L 98-107 [facility] Comprehensive Metabolic Prof ilon 01-01-2024 Albumin [Mass/Vol] 3.7 g/dL Normal 3.2-5.0 [facility] Comment on above: Performed By: #### L 300.3900 #### [facility] [address] [place], [place], [phone] Albumin/Globulin [Mass ratio] 0.8 {ratio} Low 0.9-2.4 [facility] Comment on above: Performed By: #### L 300.3900 #### [facility] [address] [place], [place], [id number] ([address] ALK P 120 U/L High 45-117 [facility] Comment on above: Performed By: #### L 300.3900 #### [facility] [address] [place], [place], [phone] ([address] ALT [Catalytic activity/Vol] 21 U/L Normal 16-61 [facility] Comment on above: Performed By: #### L 300.3900 #### [facility] [address] [place], [address] AST [Catalytic activity/Vol] 14 U/L Low 15-37 [facility] Comment on above: Performed By: #### L 300.3900 #### [facility] [address] [place], [place], [phone] ([address] Bilirubin [Mass/Vol] 1.00 mg/dL Normal 0.20-1.00 [facility] Comment on above: Result Comment: For patients on eltrombopag therapy, use of Dimension Hale TBIL is not recommended. Performed By: #### L 300.3900 #### [facility] [address] [place], [address] BUN/CRE 18.4 RATIO Normal 10-20 [facility] Comment on above: Performed By: #### L 300.3900 #### [facility] [address] [place], [address] CA,Total 10.2 mg/dL High 8.5-10.1 [facility] Comment on above: Performed By: #### L 300.3900 #### [facility] [address] [place], [address] Chloride [Moles/Vol] 106 mmol/L Normal 98-107 [facility] Comment on above: Performed By: #### L 300.3900 #### [facility] [address] [place], [address] CO2 [Moles/Vol] 25.0 mmol/L Normal 21.0-32.0 [facility] Comment on above: Performed By: #### L 300.3900 #### [facility] [address] [place], [address] Creatinine [Mass/Vol] 0.98 mg/dL Normal 0.70-1.30 [facility] Comment on above: Result Comment: The validity of the calculated GFR GFRAA in patients over 70 years has not been determined. Clinical correlation is essential. Performed By: #### L 300.3900 #### [facility] [address] [place], [address] EST GFR - AA 97 mL/min Normal >60 [facility] Comment on above: Result Comment: Afri can Bermudian GFR Calc Performed By: #### L 300.3900 #### [facility] [address] [place], [address] GAP 7 Normal 5-15 [facility] Comment on above: Performed By: #### L 300.3900 #### [facility] [address] [place], [address] GFR/1.73 sq M.predicted among non-blacks MDRD (S/P/Bld) [Vol rate/Area] 80 mL/min/{1.73_m2} Normal >60 [facility] Comment on above: Result Comment: Non- GFR Calc Performed By: #### L 300.3900 #### [facility] [address] [place], [address] Globulin (S) [Mass/Vol] 4.6 g/dL High 2.2-4.2 [facility] Comment on above: Performed By: #### L 300.3900 #### [facility] [address] [place], [address] Glucose [Mass/Vol] 120 mg/dL High 74-106 [facility] Comment on above: Result Comment: Fast ing Glucose result from 100 to 125 mg/dL suggests IMPAIRED HOMEOSTASIS per A.D.A. criteria. Performed By: #### L 300.3900 #### [facility] [address] [place], [address] Potassium [Moles/Vol] 4.4 mmol/L Normal 3.5-5.1 [facility] Comment on above: Performed By: #### L 300.3900 #### [facility] [address] [place], [address] Sodium [Moles/Vol] 138 mmol/L Normal 136-145 [facility] Comment on above: Performed By: #### L 300.3900 #### [facility] [address] [place], [address] T PROT 8.3 g/dL High 6.4-8.2 [facility] Comment on above: Performed By: #### L 300.3900 #### [facility] [address] [place], [place], [address] Urea nitrogen [Mass/Vol] 18 mg/dL Normal 7-18 [facility] Comment on above: Performed By: #### L 300.3900 #### [facility] [address] [place], [place], [address] Eosinophil percentageOrdered By: [facility] Evelia Gil on 01-01-2024 Eosinophils/100 WBC (Bld) 1.4 % 0-5 [facility] Erythrocyte distribution wid th ratioOrdered By: [facility] Evelia Gil on 01-01-2024 Erythrocyte distribution width (RBC) [Ratio] 14.2 % 11.6-14.6 [facility] Erythrocyte distribution wid th standard deviationOrdered By: [facility] Evelia Gil on 01-01-2024 Erythrocyte distribution width (RBC) [Entitic vol] 45.6 fL High 35.1-43.9 [facility] Estimated glomerular filtrat ion rate (GFR) AmericanOrdered By: [facility] Evelia Gil on 01-01-2024 Estimated GFR (MDRD) Amer 97 mL/min >60 [facility] Comment on above: GFR Calc Glomerular filtration rate ( GFR) estimationOrdered By: [facility] Evelia Gil on 01-01-2024 Estimated GFR (MDRD) Non-Af Amer 80 mL/min >60 [facility] Comment on above: Non- GFR Calc Glucose measurementOrdered B y: [facility] Evelia Gil on 01-01-2024 Glucose [Mass/Vol] 120 mg/dL High 74-106 [facility] Comment on above: Fasting Glucose resu lt from 100 to 125 mg/dL suggests IMPAIRED HOMEOSTASIS per A.D.A. criteria. Hematocrit Auto (Bld) [Volum e fraction]Ordered By: [facility] Evelia Gil on 01-01-2024 Hematocrit (Bld) [Volume fraction] 41.3 % 40-54 [facility] Hemoglobin measurementOrdere d By: [facility] Evelia Gil on 01-01-2024 Hemoglobin (Bld) [Mass/Vol] 12.8 g/dL Low 13.0-16.5 [facility] Immature granulocytes/100 WB C Auto (Bld)Ordered By: [facility] Evelia Gil on 01-01-2024 Immature granulocytes/100 WBC (Bld) 0.300 % 0.0-0.9 [facility] Comment on above: IG% - Immature Granu locytes (promyelocytes, myelocytes and metamyelocytes) > 1% indicates that a LEFT SHIFT is Present. International normalized rat io (INR) calculationOrdered By: [facility] Evelia Gil on 01-01-2024 INR Coag (Bld) [Relative time] 5.0 {INR} High [facility] Laboratory - Chemistry and C hemistry - challengeOrdered By: [facility] Evelia Gil on 01-01-2024 AST [Catalytic activity/Vol] 14 U/L Low 15-37 [facility] Lymphocytes Auto (Unsp spec) [#/Vol]Ordered By: [facility] Evelia Gil on 01-01-2024 Lymphocytes (Bld) [#/Vol] 1.06 10*3/uL 0.83-4.51 [facility] Lymphocytes/100 WBC Auto (Un sp spec)Ordered By: [facility] Evelia Gil on 01-01-2024 Lymphocytes/100 WBC (Bld) 9.0 % Low 19-41 [facility] MCV (mean corpuscular volume ) determinationOrdered By: [facility] Evelia Gil on 01-01-2024 MCV (RBC) [Entitic vol] 87.9 fL 80-94 [facility] Mean corpuscular hemoglobin (MCH) determinationOrdered By: [facility] Evelia Gil on 01-01-2024 MCH (RBC) [Entitic mass] 27.2 pg 27.0-32.0 [facility] Mean corpuscular hemoglobin concentration (MCHC) determinationOrdered By: [facility] Evelia Gil on 01-01-2024 MCHC (RBC) [Mass/Vol] 31.0 g/dL Low 32-36 [facility] Mean platelet volume determi nationOrdered By: [facility] Evelia Gil on 01-01-2024 Platelet mean volume (Bld) [Entitic vol] 9.8 fL 6.2-12.0 [facility] Monocyte percentageOrdered B y: [facility] Evelia Gil on 01-01-2024 Monocytes/100 WBC (Bld) 7.0 % 0-10 [facility] Neutrophil percentageOrdered By: [facility] Evelia Jeyson on 01-01-2024 Neutrophils/100 WBC (Bld) 81.9 % High 47-70 [facility] Nucleated red blood cell per centageOrdered By: [facility] Evelia Jeyson on 01-01-2024 Nucleated RBC/100 WBC (Bld) [Ratio] 0 % 0-5 [facility] Platelet countOrdered By: [facility] Eveliacori Gil on 01-01-2024 Platelets (Bld) [#/Vol] 273 10*3/uL 150-450 [facility] Potassium measurementOrdered By: [facility] Evelia Gil on 01-01-2024 Potassium [Moles/Vol] 4.4 mmol/L 3.5-5.1 [facility] Prothrombin Time w/INRon INR Coag (PPP) [Relative time] 5.0 {INR} Invalid Interpretation Code [facility] Comment on above: Order Comment: Comme nts: STANDING ORDER: Fingerstick is OK fax to [phone] Performed By: #### L 300.3900 #### [facility] [address] [place], [place], [id number] PT Coag (PPP) [Time] 45.7 s High 11.7-14.9 [facility] Comment on above: Order Comment: Comme nts: STANDING ORDER: Fingerstick is OK fax to [phone] Performed By: #### L 300.3900 #### [facility] [address] [place], [place], [id number] Prothrombin timeOrdered By: [facility] Eveliacori Gil on 01-01-2024 PT Coag (PPP) [Time] 45.7 s High 11.7-14.9 [facility] RBC Auto (Bld) [#/Vol]Ordere d By: [facility] Eveliacori Gil on 01-01-2024 RBC (Bld) [#/Vol] 4.70 10*6/uL 4.6-6.2 [facility] Serum anion gap measurementO rdered By: [facility] Eveliacori Gil on 01-01-2024 Anion gap [Moles/Vol] 7 mmol/L 5-15 [facility] Serum globulin measurementOr dered By: [facility] Evelia Gil on 01-01-2024 Globulin (S) [Mass/Vol] 4.6 g/dL High 2.2-4.2 [facility] Serum or plasma alanine harden otransferase (ALT) measurementOrdered By: [facility] Evelia Gil on 01-01-2024 ALT [Catalytic activity/Vol] 21 U/L 16-61 [facility] Serum or plasma albumin jocelyn urement (mass/volume)Ordered By: [facility] Evelia Gil on 01-01-2024 Albumin [Mass/Vol] 3.7 g/dL 3.2-5.0 [facility] Serum or plasma alkaline easton sphatase measurementOrdered By: [facility] Evelia Gil on 01-01-2024 ALP [Catalytic activity/Vol] 120 U/L High 45-117 [facility] Serum or plasma calcium jocelyn urement (mass/volume)Ordered By: [facility] Evelia Gil on 01-01-2024 Calcium [Mass/Vol] 10.2 mg/dL High 8.5-10.1 [facility] Serum or plasma creatinine m easurement (mass/volume)Ordered By: [facility] Evelia Gil on 01-01-2024 Creatinine [Mass/Vol] 0.98 mg/dL 0.70-1.30 [facility] Comment on above: The validity of the calculated GFR & GFRAA in patients over 70 years has not been determined. Clinical correlation is essential. Serum or plasma urea nitroge n measurement (mass/volume)Ordered By: [facility] Evelia Gil on 01-01-2024 Urea nitrogen [Mass/Vol] 18 mg/dL 7-18 [facility] Sodium levelOrdered By: [facility] Evelia Gil on 01-01-2024 Sodium [Moles/Vol] 138 mmol/L 136-145 [facility] TSH QnOrdered By: [facility] German Gil on 01-01-2024 Thyroid Stimulating Hormone (TSH) 1.490 uIU/mL 0.358-3.74 0 [facility] Thyroid Stim Hormone (TSH)on 01-01-2024 TSH 1.490 uIU/mL Normal 0.358-3.74 0 [facility] Comment on above: Performed By: #### L 300.3900 #### [facility] [address], [id number] Total proteinOrdered By: [facility] Evelia Jeyson on 01-01-2024 Protein [Mass/Vol] 8.3 g/dL High 6.4-8.2 [facility] Vitamin D,25 Hydroxyon 12-31 Vitamin D 25-OH 70.3 ng/mL Normal [facility] Comment on above: Result Comment: Amie min D 25(OH) Status Range Deficiency <20 ng/mL (50nmol/L) Insufficiency 20 - 30 ng/mL (50 - 75 nmol/L) Sufficiency 30 - 100 ng/mL (75 - 250 nmol/L) Toxicity >100 ng/mL (>250 nmol/L) Performed By: #### L 300.3900 #### [facility] [address] [facility] [place], [id number] White blood cell (WBC) count Ordered By: [facility] Evelia Gil on 01-01-2024 WBC (Bld) [#/Vol] 11.7 10*3/uL High 4.4-11.0 [facility] Laboratory - CoagulationOrde red By: Aly Ann on 09-14-2022 INR Coag (Bld) [Relative time] 1.7 {INR} [facility] Comment on above: Critical Value > 4.0 Whole blood prothrombin time Ordered By: Aly Ann on 09-14-2022 PT Coag (Bld) [Time] 19.1 s 11.7-14.9 [facility] Basophil percentageOrdered B y: Dr. Womack on 06-14-2022 WBC (Bld) [#/Vol] 10.4 10*3/uL 4.4-11.0 [facility] Basophil percentageOrdered B y: Dr. Ann on 06-14-2022 Bilirubin [Mass/Vol] 1.60 mg/dL 0.20-1.00 [facility] Comment on above: For patients on eltr ombopag therapy, use of Dimension [place] TBIL is not recommended. Chloride [Moles/Vol] 103 mmol/L 98-107 [facility] Glucose [Mass/Vol] 163 mg/dL 74-106 [facility] Comment on above: Fasting Glucose resu lt greater than or equal to 126 mg/dL suggests DIABETES MELLITUS per A.D.A. criteria. Potassium [Moles/Vol] 4.5 mmol/L 3.5-5.1 [facility] Protein [Mass/Vol] 7.6 g/dL 6.4-8.2 [facility] Sodium [Moles/Vol] 135 mmol/L 136-145 [facility] Blood erythrocytes count (nu mber/volume)Ordered By: Dr. Womack on 06-14-2022 RBC (Bld) [#/Vol] 5.40 10*6/uL 4.6-6.2 [facility] Blood hemoglobin measurement (mass/volume)Ordered By: Dr. Womack on 06-14-2022 Hemoglobin (Bld) [Mass/Vol] 14.3 g/dL 13.0-16.5 [facility] Blood platelet mean volumeOr dered By: Dr. Womack on 06-14-2022 Platelet mean volume (Bld) [Entitic vol] 10.4 fL 6.2-12.0 [facility] Determination of erythrocyte mean corpuscular volume (MCV)Ordered By: Dr. Womack on 06-14-2022 MCV (RBC) [Entitic vol] 87.4 fL 80-94 [facility] Hematocrit Auto (Bld) [Volum e fraction]Ordered By: Dr. Womack on 06-14-2022 Hematocrit (Bld) [Volume fraction] 47.2 % 40-54 [facility] INR in Blood by Coagulation assayOrdered By: Dr. Ann on 06-14-2022 INR Coag (Bld) [Relative time] 2.1 {INR} [facility] Laboratory - Chemistry and C hemistry - challengeOrdered By: Dr. Ann on 06-14-2022 ALP [Catalytic activity/Vol] 116 U/L 45-117 [facility] ALT [Catalytic activity/Vol] 26 U/L 16-61 [facility] CO2 [Moles/Vol] 31.0 mmol/L 21.0-32.0 [facility] Globulin (S) [Mass/Vol] 4.0 g/dL 2.2-4.2 [facility] Urea nitrogen/Creatinine [Mass ratio] 15.1 mg/mg 10-20 [facility] Laboratory - CoagulationOrde red By: Dr. Ann on 06-14-2022 PT Coag (PPP) [Time] 23.0 s 11.7-14.9 [facility] - Hematology and Cell countsOrdered By: Dr. Womack on 06-14-2022 Erythrocyte distribution width (RBC) [Entitic vol] 49.1 fL 35.1-43.9 [facility] Erythrocyte distribution width (RBC) [Ratio] 15.4 % 11.6-14.6 [facility] MCH (RBC) [Entitic mass] 26.5 pg 27.0-32.0 [facility] MCHC Auto (RBC) [Mass/Vol]Or dered By: Dr. Womack on 06-14-2022 MCHC (RBC) [Mass/Vol] 30.3 g/dL 32-36 [facility] No Panel InformationOrdered By: Dr. Womack on 06-14-2022 Parathyroid Hormone (Intact) 73.0 pg/mL 18.4-80.1 [facility] Vitamin D 25-Hydroxy 74.7 ng/mL [facility] Comment on above: Vitamin D 25(OH) Sta tus Range Deficiency <20 ng/mL (50nmol/L) Insufficiency 20 - 30 ng/mL (50 - 75 nmol/L) Sufficiency 30 - 100 ng/mL (75 - 250 nmol/L) Toxicity >100 ng/mL (>250 nmol/L) No Panel InformationOrdered By: Dr. Ann on 06-14-2022 Estimated GFR (MDRD) Amer 103 mL/min >60 [facility] Comment on above: GFR Calc Estimated GFR (MDRD) Non-Af Amer 85 mL/min >60 [facility] Comment on above: Non- GFR Calc Platelets bldOrdered By: Dr. Womack on 06-14-2022 Platelets (Bld) [#/Vol] 270 10*3/uL 150-450 [facility] Serum or plasma albumin jocelyn urement (mass/volume)Ordered By: Dr. Ann on 06-14-2022 Albumin [Mass/Vol] 3.6 g/dL 3.2-5.0 [facility] Serum or plasma albumin/glob ulin mass ratioOrdered By: Dr. Ann on 06-14-2022 Albumin/Globulin [Mass ratio] 0.9 {ratio} 0.9-2.4 [facility] Serum or plasma calcium jocelyn urement (mass/volume)Ordered By: Dr. Ann on 06-14-2022 Calcium [Mass/Vol] 10.4 mg/dL 8.5-10.1 [facility] Serum or plasma creatinine m easurement (mass/volume)Ordered By: Dr. Ann on 06-14-2022 Creatinine [Mass/Vol] 0.93 mg/dL 0.70-1.30 [facility] Comment on above: The validity of the calculated GFR & GFRAA in patients over 70 years has not been determined. Clinical correlation is essential. Serum or plasma urea nitroge n measurement (mass/volume)Ordered By: Dr. Ann on 06-14-2022 Urea nitrogen [Mass/Vol] 14 mg/dL 7-18 [facility] Thin prep Papanicolaou smear with manual screeningOrdered By: Dr. Ann on 06-14-2022 Thin prep Papanicolaou smear with manual screening 14 U/L 15-37 [facility] Thin prep Papanicolaou smear with manual screening 1 5-15 [facility] Thin prep Papanicolaou smear with manual screening 219.0 mg/L NO RANGE EST. [facility] Urine creatinine measurement (mass/volume)Ordered By: Dr. Womack on 06-14-2022 Creatinine (U) [Mass/Vol] 42.50 mg/dL NO RANGE EST. [facility] Urine protein measurement (m ass/volume)Ordered By: Dr. Womack on 06-14-2022 Protein (U) [Mass/Vol] 46.0 mg/dL 0.0-11.8 [facility] Urine protein/creatinine mas s ratioOrdered By: Dr. Womack on 06-14-2022 Protein/Creatinine (U) [Mass ratio] 1082 mg/g CRE 0-200 [facility] Laboratory - Coagulationon 1 2-19-2022 INR Coag (Bld) [Relative time] 1.6 {INR} [facility] Work Phone: Comment on above: Critical Value > 4.0 Whole blood prothrombin time on 02-05-2022 PT Coag (Bld) [Time] 19.3 s 11.7-14.9 [facility] Work Phone: Laboratory - Coagulationon 1 03-19-2021 INR Coag (Bld) [Relative time] 2.5 {INR} [facility] Work Phone: Comment on above: Critical Value > 4.0 Whole blood prothrombin time on 01-17-2022 PT Coag (Bld) [Time] 29.5 s 11.7-14.9 [facility] Work Phone: No Panel Informationon 12-14 INR International Normalized Ratio 1.4 [facility] Work Phone: Basophil percentageon 2021 Chloride [Moles/Vol] 100 mmol/L 98-107 [facility] Work Phone: Glucose [Mass/Vol] 184 mg/dL 74-106 [facility] Work Phone: Comment on above: Fasting Glucose resu lt greater than or equal to 126 mg/dL suggests DIABETES MELLITUS per A.D.A. criteria. Potassium [Moles/Vol] 3.8 mmol/L 3.5-5.1 [facility] Work Phone: Sodium [Moles/Vol] 136 mmol/L 136-145 [facility] Work Phone: INR in Blood by Coagulation assayon 12-07-2021 INR Coag (Bld) [Relative time] 1.4 {INR} [facility] Work Phone: Laboratory - Chemistry and C hemistry - challengeon 12-07-2021 CO2 [Moles/Vol] 29.0 mmol/L 21.0-32.0 [facility] Work Phone: Urea nitrogen/Creatinine [Mass ratio] 13.0 mg/mg 12-07 [facility] Work Phone: Laboratory - Coagulationon 1 PT Coag (PPP) [Time] 17.1 s 11.7-14.9 [facility] Work Phone: No Panel Informationon 12-07 Estimated GFR (MDRD) Amer 87 mL/min >60 [facility] Work Phone: Comment on above: GFR Calc Estimated GFR (MDRD) Non-Af Amer 72 mL/min >60 [facility] Work Phone: Comment on above: Non- GFR Calc Serum or plasma calcium jocelyn urement (mass/volume)on 12-07-2021 Calcium [Mass/Vol] 10.3 mg/dL 8.5-10.1 [facility] Work Phone: Serum or plasma creatinine m easurement (mass/volume)on 12-07-2021 Creatinine [Mass/Vol] 1.08 mg/dL 0.70-1.30 [facility] Work Phone: Comment on above: The validity of the calculated GFR & GFRAA in patients over 70 years has not been determined. Clinical correlation is essential. Serum or plasma urea nitroge n measurement (mass/volume)on 12-07-2021 Urea nitrogen [Mass/Vol] 14 mg/dL -18 [facility] Work Phone: Thin prep Papanicolaou smear with manual screeningon 12-07-2021 Thin prep Papanicolaou smear with manual screening 7 5-15 [facility] Work Phone: Urine creatinine measurement (mass/volume)on 12-07-2021 Creatinine (U) [Mass/Vol] 41.30 mg/dL NO RANGE EST. [facility] Work Phone: Urine protein measurement (m ass/volume)on 12-07-2021 Protein (U) [Mass/Vol] 43.4 mg/dL 0.0-11.8 [facility] Work Phone: Urine protein/creatinine mas s ratioon 12-07-2021 Protein/Creatinine (U) [Mass ratio] 1051 mg/g CRE 0-200 [facility] Work Phone: Whole blood prothrombin time on 11-30-2021 PT Coag (Bld) [Time] 15.5 s 11.7-14.9 [facility] Work Phone: Basophil percentageon 2021 Chloride [Moles/Vol] 105 mmol/L 98-107 [facility] Work Phone: Glucose [Mass/Vol] 139 mg/dL 74-106 [facility] Work Phone: Comment on above: Fasting Glucose resu lt greater than or equal to 126 mg/dL suggests DIABETES MELLITUS per A.D.A. criteria. Potassium [Moles/Vol] 3.7 mmol/L 3.5-5.1 [facility] Work Phone: Sodium [Moles/Vol] 139 mmol/L 136-145 [facility] Work Phone: Iron measurement (mass/mass) on 07-21-2021 Iron (Unsp spec) [Mass/Mass] 39 ug/dL 65-175 [facility] Work Phone: Laboratory - Chemistry and C hemistry - challengeon 07-21-2021 CO2 [Moles/Vol] 26.0 mmol/L 21.0-32.0 [facility] Work Phone: Cobalamin (Vitamin B12) [Mass/Vol] 727 pg/mL 211-911 [facility] Work Phone: Magnesium [Mass/Vol] 1.7 mg/dL 1.6-2.6 [facility] Work Phone: Natriuretic peptide B (Bld) [Mass/Vol] 167.3 pg/mL 0-100 [facility] Work Phone: [phone] Urea nitrogen/Creatinine [Mass ratio] 13.7 mg/mg 10-20 [facility] Work Phone: No Panel Informationon 07-21 Estimated GFR (MDRD) Amer 79 mL/min >60 [facility] Work Phone: Comment on above: GFR Calc Estimated GFR (MDRD) Non-Af Amer 65 mL/min >60 [facility] Work Phone: Comment on above: Non- GFR Calc Thyroid Stimulating Hormone (TSH) 1.88 uIU/mL 0.358-3.74 [facility] Work Phone: Total Iron Binding Capacity 347 ug/dL 250-450 [facility] Work Phone: Vitamin D 25-Hydroxy 84.9 ng/mL [facility] Work Phone: Comment on above: Vitamin D 25(OH) Sta tus Range Deficiency <20 ng/mL (50nmol/L) Insufficiency 20 - 30 ng/mL (50 - 75 nmol/L) Sufficiency 30 - 100 ng/mL (75 - 250 nmol/L) Toxicity >100 ng/mL (>250 nmol/L) Serum or plasma calcium jocelyn urement (mass/volume)on 07-21-2021 Calcium [Mass/Vol] 9.6 mg/dL 8.5-10.1 [facility] Work Phone: Serum or plasma creatinine m easurement (mass/volume)on 07-21-2021 Creatinine [Mass/Vol] 1.17 mg/dL 0.70-1.30 [facility] Work Phone: Comment on above: The validity of the calculated GFR & GFRAA in patients over 70 years has not been determined. Clinical correlation is essential. Serum or plasma folate measu rement (mass/volume)on 07-21-2021 Folate [Mass/Vol] 15.50 ng/mL 3.1-55.4 [facility] Work Phone: Serum or plasma urea nitroge n measurement (mass/volume)on 07-21-2021 Urea nitrogen [Mass/Vol] 16 mg/dL 7-18 [facility] Work Phone: Thin prep Papanicolaou smear with manual screeningon 07-21-2021 Thin prep Papanicolaou smear with manual screening 8 5-15 [facility] Work Phone: Basophil percentageon 2021 Potassium [Moles/Vol] 3.7 mmol/L 3.5-5.1 [facility] Work Phone: [phone] Absolute lymphocyte counton 04-12-2021 Lymphocytes Auto (Unsp spec) [#/Vol] 1.60 10*3/uL 0.83-4.51 [facility] Work Phone: Basophil percentageon 2021 Basophils/100 WBC (Bld) 0.4 % 0-1 [facility] Work Phone: [phone] Bilirubin [Mass/Vol] 0.30 mg/dL 0.20-1.00 [facility] Work Phone: [phone] Comment on above: For patients on eltr ombopag therapy, use of Dimension [place] TBIL is not recommended. Chloride [Moles/Vol] 105 mmol/L 98-107 [facility] Work Phone: Cholesterol [Mass/Vol] 151 mg/dL <200 [facility] Work Phone: Comment on above: <200 mg/dL Desirable 200-240 mg/dL Borderline >240 mg/dL High Risk Eosinophils/100 WBC (Bld) 2.1 % 0-5 [facility] Work Phone: Glucose [Mass/Vol] 117 mg/dL 74-106 [facility] Work Phone: Comment on above: Fasting Glucose resu lt from 100 to 125 mg/dL suggests IMPAIRED HOMEOSTASIS per A.D.A. criteria. Neutrophils (Bld) [#/Vol] 7.8 10*3/uL 2.0-7.7 [facility] Work Phone: [phone] Neutrophils/100 WBC (Bld) 76.2 % 47-70 [facility] Work Phone: [phone] Potassium [Moles/Vol] 3.1 mmol/L 3.5-5.1 [facility] Work Phone: Protein [Mass/Vol] 7.1 g/dL 6.4-8.2 [facility] Work Phone: Sodium [Moles/Vol] 141 mmol/L 136-145 [facility] Work Phone: Triglyceride [Mass/Vol] 91 mg/dL [facility] Work Phone: [phone] Comment on above: The drugs N-Acetylcy steine and Metamizole may falsely depress this assay.Serum Triglycerides Reference Interval Normal <150 mg/dL Borderline high 150 - 199 mg/dL High 200 - 499 mg/dL Very High > or = 500 mg/dL WBC (Bld) [#/Vol] 10.3 10*3/uL 4.4-11.0 [facility] Work Phone: [phone] Blood erythrocytes count (nu mber/volume)on 04-12-2021 RBC (Bld) [#/Vol] 3.88 10*6/uL 4.6-6.2 [facility] Work Phone: [phone] Blood hemoglobin measurement (mass/volume)on 04-12-2021 Hemoglobin (Bld) [Mass/Vol] 11.2 g/dL 13.0-16.5 [facility] Work Phone: Blood lymphocytes/100 leukoc yteson 04-12-2021 Lymphocytes/100 WBC (Bld) 15.5 % 19-41 [facility] Work Phone: Blood monocytes/100 leukocyt eson 04-12-2021 Monocytes/100 WBC (Bld) 5.3 % 0-10 [facility] Work Phone: Blood platelet mean volumeon 04-12-2021 Platelet mean volume (Bld) [Entitic vol] 9.9 fL 6.2-12.0 [facility] Work Phone: [phone] Determination of erythrocyte mean corpuscular volume (MCV)on 04-12-2021 MCV (RBC) [Entitic vol] 86.6 fL 80-94 [facility] Work Phone: Hematocrit Auto (Bld) [Volum e fraction]on 04-12-2021 Hematocrit (Bld) [Volume fraction] 33.6 % 40-54 [facility] Work Phone: [phone] Iron measurement (mass/mass) on 04-12-2021 Iron (Unsp spec) [Mass/Mass] 42 ug/dL 65-175 [facility] Work Phone: Laboratory - Chemistry and C hemistry - challengeon 04-12-2021 ALP [Catalytic activity/Vol] 65 U/L 45-117 [facility] Work Phone: ALT [Catalytic activity/Vol] 16 U/L 16-61 [facility] Work Phone: CO2 [Moles/Vol] 32.0 mmol/L 21.0-32.0 [facility] Work Phone: [phone] Cobalamin (Vitamin B12) [Mass/Vol] 208 pg/mL 211-911 [facility] Work Phone: [phone] Globulin (S) [Mass/Vol] 3.9 g/dL 2.2-4.2 [facility] Work Phone: [phone] Urea nitrogen/Creatinine [Mass ratio] 16.4 mg/mg 10-20 [facility] Work Phone: [phone] Laboratory - Hematology and Cell countson 04-12-2021 Erythrocyte distribution width (RBC) [Entitic vol] 42.7 fL 35.1-43.9 [facility] Work Phone: [phone] Erythrocyte distribution width (RBC) [Ratio] 13.6 % 11.6-14.6 [facility] Work Phone: [phone] Immature granulocytes/100 WBC (Bld) 0.500 % 0.0-0.9 [facility] Work Phone: [phone] Comment on above: IG% - Immature Granu locytes (promyelocytes, myelocytes and metamyelocytes) > 1% indicates that a LEFT SHIFT is Present. MCH (RBC) [Entitic mass] 28.9 pg 27.0-32.0 [facility] Work Phone: [phone] Nucleated RBC/100 WBC (Bld) [Ratio] 0 % 0-5 [facility] Work Phone: MCHC Auto (RBC) [Mass/Vol]on 04-12-2021 MCHC (RBC) [Mass/Vol] 33.3 g/dL 32-36 [facility] Work Phone: No Panel Informationon 04-12 Estimated GFR (MDRD) Amer 85 mL/min >60 [facility] Work Phone: Comment on above: GFR Calc Estimated GFR (MDRD) Non-Af Amer 70 mL/min >60 [facility] Work Phone: Comment on above: Non- GFR Calc Total Iron Binding Capacity 254 ug/dL 250-450 [facility] Work Phone: Platelets bldon 04-12-2021 Platelets (Bld) [#/Vol] 329 10*3/uL 150-450 [facility] Work Phone: Serum or plasma albumin jocelny urement (mass/volume)on 04-12-2021 Albumin [Mass/Vol] 3.2 g/dL 3.2-5.0 [facility] Work Phone: Serum or plasma albumin/glob ulin mass ratioon 04-12-2021 Albumin/Globulin [Mass ratio] 0.8 {ratio} 0.9-2.4 [facility] Work Phone: Serum or plasma calcitriol m easurement (mass/volume)on 04-12-2021 1,25-dihydroxyvitamin D3 [Mass/Vol] 13.1 pg/mL [facility] Work Phone: Comment on above: Performed at: [facility] [address] [id number] Director: Haily Solitario MD, Phone: [phone] Serum or plasma calcium jocelyn urement (mass/volume)on 04-12-2021 Calcium [Mass/Vol] 10.4 mg/dL 8.5-10.1 [facility] Work Phone: Serum or plasma cholesterol in HDL measurement (mass/volume)on 04-12-2021 Cholesterol in HDL [Mass/Vol] 35 mg/dL [facility] Work Phone: Comment on above: The drugs N-Acetylcy steine and Metamizole may falsely depress this assay. Reference Range HDL <40 mg/dL Low HDL Cholesterol HDL >or= 60 mg/dL High HDL Cholesterol Serum or plasma cholesterol in VLDL measurement (mass/volume)on 04-12-2021 Cholesterol in VLDL [Mass/Vol] 18 mg/dL 5-40 [facility] Work Phone: Serum or plasma creatinine m easurement (mass/volume)on 04-12-2021 Creatinine [Mass/Vol] 1.10 mg/dL 0.70-1.30 [facility] Work Phone: Comment on above: The validity of the calculated GFR & GFRAA in patients over 70 years has not been determined. Clinical correlation is essential. Serum or plasma low density lipoprotein (LDL) cholesterol measurement (mass/volume)on 04-12-2021 Cholesterol in LDL [Mass/Vol] 98 mg/dL 0-130 [facility] Work Phone: Serum or plasma urea nitroge n measurement (mass/volume)on 04-12-2021 Urea nitrogen [Mass/Vol] 18 mg/dL 7-18 [facility] Work Phone: Thin prep Papanicolaou smear with manual screeningon 04-12-2021 Thin prep Papanicolaou smear with manual screening 9 U/L 15-37 [facility] Work Phone: Thin prep Papanicolaou smear with manual screening 4 5-15 [facility] Work Phone: Vital Signs Date Time Vital Sign Value Performing Clinician Faci lity 11-25-2024 13:10040 Body height 172.72 cm Susan ELLIOTT Work Phone: [facility] 11-25-2024 13:10040 Body mass index (BMI) [Ratio] 36.9 kg/m2 Susan ELLIOTT Work Phone: [facility] 11-25-2024 13:100400 Body weight 110.22 kg Susan ELLIOTT Work Phone: [facility] 11-25-2024 13:10-0400 Diastolic blood pressure 75 mm[Hg] Susan ELLIOTT Work Phone: [facility] 11-25-2024 13:10-0400 Heart rate 62 /min Susan Biswas PA Work Phone: [facility] 11-25-2024 13:10-0400 Respiratory rate 20 /min Susan Biswas PA Work Phone: [facility] 11-25-2024 13:10-0400 SaO2% (BldA) [Mass fraction] 93 % Susan Biswas PA Work Phone: [facility] 11-25-2024 13:10-0400 Systolic blood pressure 118 mm[Hg] Susan ELLIOTT Work Phone: [facility] 09-11-2024 14:13-0400 Body height 172.72 cm Evelia Gil MUSIC THERAPY SPECIALIST-C Work Phone: [facility] 09-11-2024 14:13-0400 Body mass index (BMI) [Ratio] 34.9 kg/m2 Evelia Gil MUSIC THERAPY SPECIALIST-C Work Phone: [facility] 09-11-2024 14:13-0400 Body weight 104.32 kg Evelia Gil MUSIC THERAPY SPECIALIST-C Work Phone: [facility] 09-11-2024 14:13-0400 Diastolic blood pressure 72 mm[Hg] Evelia Gil MUSIC THERAPY SPECIALIST-C Work Phone: [facility] 09-11-2024 14:13-0400 Heart rate 90 /min Evelia Gil MUSIC THERAPY SPECIALIST-C Work Phone: [facility] 09-11-2024 14:13-0400 Respiratory rate 18 /min Evelia Gil MUSIC THERAPY SPECIALIST-C Work Phone: [facility] 09-11-2024 14:13-0400 SaO2% (BldA) [Mass fraction] 90 % Evelia Gil MUSIC THERAPY SPECIALIST-C Work Phone: 2(588)778-488539 [place] [address] 09-11-2024 14:13-0400 Systolic blood pressure 118 mm[Hg] Evelia Gil MUSIC THERAPY SPECIALIST-C Work Phone: 9(213)342-255139 [place] [address] 07-07-2024 07:23-0400 Body mass index (BMI) [Ratio] 35.4 kg/m2 Evelia Gil MUSIC THERAPY SPECIALIST-C Work Phone: 6(406)367-480239 [place] [address] 07-07-2024 07:23-0400 Body weight 105.68 kg Evelia Gil MUSIC THERAPY SPECIALIST-C Work Phone: 3(839)924-718739 [place] [address] 07-07-2024 07:23-0400 Diastolic blood pressure 74 mm[Hg] Evelia Gil MUSIC THERAPY SPECIALIST-C Work Phone: 2(930)650-640439 [place] [address] 07-07-2024 07:23-0400 Heart rate 66 /min Evelia Gil MUSIC THERAPY SPECIALIST-C Work Phone: 4(575)772-696639 [place] [address] 07-07-2024 07:23-0400 Respiratory rate 18 /min Evelia Gil MUSIC THERAPY SPECIALIST-C Work Phone: 1(767)840-017739 [place] [address] 07-07-2024 07:23-0400 SaO2% (BldA) [Mass fraction] 96 % Evelia Gil MUSIC THERAPY SPECIALIST-C Work Phone: 6(100)692-147939 [place] [address] 07-07-2024 07:23-0400 Systolic blood pressure 111 mm[Hg] Evelia Gil MUSIC THERAPY SPECIALIST-C Work Phone: 4(579)705-684839 [place] [address] 04-28-2024 10:00-0400 Inhaled oxygen flow rate 2 L/min Evelia Gil MUSIC THERAPY SPECIALIST-C Work Phone: 5(879)995-957339 [place] [address] 04-28-2024 09:05-0400 Heart rate 82 /min Evelia Gil MUSIC THERAPY SPECIALIST-C Work Phone: 2(689)669-247439 [place] [address] 04-28-2024 08:53-0400 Body temperature 97.7 [degF] Evelia Gil MUSIC THERAPY SPECIALIST-C Work Phone: 3(757)094-135639 [place] [address] 04-28-2024 08:53-0400 Diastolic blood pressure 82 mm[Hg] Evelia Gil MUSIC THERAPY SPECIALIST-C Work Phone: 0(990)686-994117 [place] [address] 04-28-2024 08:53-0400 Respiratory rate 20 /min Evelia Gil MUSIC THERAPY SPECIALIST-C Work Phone: 0(126)135-733017 [place] [address] 04-28-2024 08:53-0400 SaO2% (BldA) [Mass fraction] 98 % Evelia Gil MUSIC THERAPY SPECIALIST-C Work Phone: 4(638)032-720217 [place] [address] 04-28-2024 08:53-0400 Systolic blood pressure 126 mm[Hg] Evelia Gil MUSIC THERAPY SPECIALIST-C Work Phone: 7(629)520-214517 [place] [address] 04-26-2024 11:57-0400 Body height 172.72 cm Evelia Gil MUSIC THERAPY SPECIALIST-C Work Phone: 1(648)786-316039 [place] [address] 04-26-2024 11:57-0400 Body weight 103.4 kg Evelia Gil MUSIC THERAPY SPECIALIST-C Work Phone: 6(403)732-967639 [place] [address] 04-25-2024 20:16-0500 Body mass index (BMI) [Ratio] 34.6 kg/m2 Evelia Gil MUSIC THERAPY SPECIALIST-C Work Phone: 5(065)768-522517 [place] [address] 04-25-2024 19:32-0500 Body temperature 98.4 [degF] Evelia Gil MUSIC THERAPY SPECIALIST-C Work Phone: 5(744)013-348239 [place] [address] 04-25-2024 19:32-0500 Diastolic blood pressure 70 mm[Hg] Evelia Gil MUSIC THERAPY SPECIALIST-C Work Phone: 0(754)364-939017 [place] [address] 04-25-2024 19:32-0500 Heart rate 91 /min Evelia Gil MUSIC THERAPY SPECIALIST-C Work Phone: 5(839)015-364117 [place] [address] 04-25-2024 19:32-0500 Respiratory rate 18 /min Evelia Gil MUSIC THERAPY SPECIALIST-C Work Phone: 0(454)990-685639 [place] [address] 04-25-2024 19:32-0500 SaO2% (BldA) [Mass fraction] 97 % Evelia Gil MUSIC THERAPY SPECIALIST-C Work Phone: 2(991)464-350217 [place] [address] 04-25-2024 19:32-0500 Systolic blood pressure 142 mm[Hg] Evelia Gil MUSIC THERAPY SPECIALIST-C Work Phone: 7(068)723-370517 [place] [address] 04-25-2024 16:50-0500 Body mass index (BMI) [Ratio] 33.2 kg/m2 Evelia Gil MUSIC THERAPY SPECIALIST-C Work Phone: 4(356)263-649717 [place] [address] 04-25-2024 16:50-0500 Body weight 107.95 kg Evelia Gil MUSIC THERAPY SPECIALIST-C Work Phone: 0(200)723-848642 [address] 04-25-2024 16:30-0500 Body height 180.34 cm Evelia Gil MUSIC THERAPY SPECIALIST-C Work Phone: 6(256)169-405817 [place] [address] 04-07-2024 18:00-0500 Body temperature 98.3 [degF] Evelia Gil MUSIC THERAPY SPECIALIST-C Work Phone: 6(959)736-417239 [place] [address] 04-07-2024 18:00-0500 Diastolic blood pressure 100 mm[Hg] Evelia Gil MUSIC THERAPY SPECIALIST-C Work Phone: 6(961)377-220517 [place] [address] 04-07-2024 18:00-0500 Heart rate 88 /min Evelia Gil MUSIC THERAPY SPECIALIST-C Work Phone: 8(425)460-885317 [place] [address] 04-07-2024 18:00-0500 Inhaled oxygen flow rate 2 L/min Evelia Gil MUSIC THERAPY SPECIALIST-C Work Phone: 1(851)398-635839 [place] [address] 04-07-2024 18:00-0500 Respiratory rate 19 /min Evelia Gil MUSIC THERAPY SPECIALIST-C Work Phone: 2(605)695-313317 [place] [address] 04-07-2024 18:00-0500 SaO2% (BldA) [Mass fraction] 95 % Evelia Gil MUSIC THERAPY SPECIALIST-C Work Phone: 5(556)561-273017 [place] [address] 04-07-2024 18:00-0500 Systolic blood pressure 146 mm[Hg] Evelia Gil MUSIC THERAPY SPECIALIST-C Work Phone: 4(805)345-838539 [place] [address] 04-07-2024 16:11-0500 Body mass index (BMI) [Ratio] 34.4 kg/m2 Evelia Gil MUSIC THERAPY SPECIALIST-C Work Phone: 9(505)067-674442 [address] 04-07-2024 16:11-0500 Body weight 111.6 kg Evelia Gil MUSIC THERAPY SPECIALIST-C Work Phone: 7(143)847-195739 [place] [address] 09-14-2022 13:27-0400 Body height 172.72 cm [facility] Work Phone: 3(767)884-010839 [place] [address] 09-14-2022 13:27-0400 Body mass index (BMI) [Ratio] 36 kg/m2 [facility] Work Phone: 5(189)644-249639 [place] [address] 09-14-2022 13:27-0400 Body weight 107.5 kg [facility] Work Phone: 6(934)436-643239 [place] [address] 09-14-2022 13:27-0400 Diastolic blood pressure 85 mm[Hg] [facility] Work Phone: 4(508)703-268439 [place] [address] 09-14-2022 13:27-0400 Heart rate 88 /min [facility] Work Phone: 4(722)022-164839 [place] [address] 09-14-2022 13:27-0400 Respiratory rate 22 /min [facility] Work Phone: 7(963)953-694139 [place] [address] 09-14-2022 13:27-0400 SaO2% (BldA) [Mass fraction] 94 % [facility] Work Phone: 3(355)600-651939 [place] [address] 09-14-2022 13:27-0400 Systolic blood pressure 133 mm[Hg] [facility] Work Phone: 1(756)952-785239 [place] [address] 03-08-2022 06:18-0500 Body height 172.72 cm [facility] Work Phone: 1(873)882-620239 [address] [place] [address] 03-08-2022 06:18-0500 Body mass index (BMI) [Ratio] 38.7 kg/m2 [facility] Work Phone: [phone])[phone] [place] [address] 03-08-2022 06:18-0500 Body temperature 97.8 [degF] [facility] Work Phone: 2(999)[phone] [place] [address] 03-08-2022 06:18-0500 Body weight 115.66 kg [facility] Work Phone: 9(607)[phone] [place] [address] 03-08-2022 06:18-0500 Diastolic blood pressure 82 mm[Hg] [facility] Work Phone: 2(006)[phone] [place] [address] 03-08-2022 06:18-0500 Heart rate 79 /min [facility] Work Phone: 2(447)[phone] [address] 03-08-2022 06:18-0500 Respiratory rate 18 /min [facility] Work Phone: 5(760)[phone] [address] 03-08-2022 06:18-0500 SaO2% (BldA) [Mass fraction] 92 % [facility] Work Phone: 0(436)[phone] [address] 03-08-2022 06:18-0500 Systolic blood pressure 126 mm[Hg] [facility] Work Phone: 2([phone])[phone] [address] 01-30-2022 13:57-0500 Body height 172.72 cm [facility] Work Phone: [facility] Work Phone: 01-30-2022 13:57-0500 Body weight 113.46 kg [facility] Work Phone: [facility] Work Phone: 01-30-2022 13:57-0500 Heart rate 85 /min [facility] Work Phone: [facility] Work Phone: 01-30-2022 13:57-0500 SaO2% (BldA) [Mass fraction] 96 % [facility] Work Phone: [facility] Work Phone: 01-09-2022 12:30-0500 Body mass index (BMI) [Ratio] 23.5 kg/m2 [facility] Work Phone: [facility] Work Phone: 01-09-2022 12:30-0500 Body weight 68.03 kg [facility] Work Phone: [facility] Work Phone: 01-09-2022 12:30-0500 Diastolic blood pressure 76 mm[Hg] [facility] Work Phone: [facility] Work Phone: 01-09-2022 12:30-0500 Heart rate 74 /min [facility] Work Phone: [facility] Work Phone: 01-09-2022 12:30-0500 SaO2% (BldA) [Mass fraction] 94 % [facility] Work Phone: [facility] Work Phone: 01-09-2022 12:30-0500 Systolic blood pressure 123 mm[Hg] [facility] Work Phone: [facility] Work Phone: 11-08-2021 13:19-0400 Body height 170.18 cm [facility] Work Phone: [facility] Work Phone: 11-08-2021 13:19-0400 Body mass index (BMI) [Ratio] 38.5 kg/m2 [facility] Work Phone: [facility] Work Phone: 11-08-2021 13:19-0400 Body weight 111.58 kg [facility] Work Phone: [facility] Work Phone: 11-08-2021 13:19-0400 Diastolic blood pressure 78 mm[Hg] [facility] Work Phone: [facility] Work Phone: 11-08-2021 13:19-0400 Heart rate 92 /min [facility] Work Phone: [facility] Work Phone: 11-08-2021 13:19-0400 Respiratory rate 18 /min [facility] Work Phone: [facility] Work Phone: 11-08-2021 13:19-0400 SaO2% (BldA) [Mass fraction] 95 % [facility] Work Phone: [facility] Work Phone: 11-08-2021 13:19-0400 Systolic blood pressure 129 mm[Hg] [facility] Work Phone: [facility] Work Phone: Encounters Encounter Date Encounter Type Care Provider Facility Start: 12-19-2024 ambulatory Linwood Beam Facility:[facility] Start: 11-25-2024 End: 11-25-2024 Patient encounter procedure Susan ELLIOTT -[facility] Work Phone: Start: 11-25-2024 Registered Recurring uSsan Biswas PA -Laboratory Work Phone: Start: 11-25-2024 End: 11-25-2024 ambulatory Susan ELLIOTT Work Phone: -[facility] Start: 09-11-2024 End: 09-11-2024 ambulatory Evelia Gil MUSIC THERAPY SPECIALIST-C Work Phone: -Radiology [facility] Start: 09-11-2024 End: 09-11-2024 Patient encounter procedure Susan ELLIOTT -Radiology [facility] Work Phone: Start: 09-11-2024 End: 09-11-2024 Patient encounter procedure Susan ELLIOTT -[facility] Work Phone: Start: 09-11-2024 End: 09-11-2024 ambulatory Evelia Gil MUSIC THERAPY SPECIALIST-C Work Phone: -[facility] Start: 09-11-2024 End: 09-11-2024 ambulatory Susan ELLIOTT Facility:[facility] Start: 09-09-2024 End: 09-17-2024 ambulatory Evelia Gil MUSIC THERAPY SPECIALIST-C Work Phone: -Laboratory Start: 09-09-2024 End: 09-17-2024 Discharged Recurring Susan Biswas PA -Laboratory Work Phone: Start: 09-09-2024 Registered Recurring Susan Biswas PA -Laboratory Work Phone: Start: 07-07-2024 End: 07-07-2024 Discharged Recurring Susan Biswas PA -Laboratory Work Phone: Start: 07-07-2024 End: 07-07-2024 Patient encounter procedure Tanner Nunoanjali PA -[facility] Work Phone: Start: 07-07-2024 End: 07-07-2024 ambulatory Evelia Gil MUSIC THERAPY SPECIALIST-C Work Phone: [facility] Work Phone: Start: 05-12-2024 End: 05-12-2024 [facility] Work Phone: [facility] Work Phone: Start: 05-12-2024 End: 05-12-[address] Curly Perea MD -Laboratory, [facility] Start: 05-12-2024 End: 05-12-2024 ambulatory [facility] Facility:[facility] Start: 05-05-2024 End: 05-05-2024 ambulatory Evelia Jeyson MUSIC THERAPY SPECIALIST-C Work Phone: [facility] Work Phone: Start: 05-05-2024 End: 05-05-2024 Patient encounter procedure Geoffrey Cowart NP-C -Laboratory, [facility] Start: 05-05-2024 End: 05-05-20[facility] Start: 04-28-2024 ambulatory [facility] Fa cility:[facility] Start: 04-28-2024 Non-patient / Non-visit Dr. Luis Nieto [facility] Work Phone: Start: 04-27-2024 Non-patient / Non-visit Dr. Luis Nieto [facility] Work Phone: Start: 04-27-2024 ambulatory [facility] Fa cility:[facility] Start: 04-27-2024 Non-patient / Non-visit Dr. Deedee Torres MD -[facility] Start: 04-26-2024 Non-patient / Non-visit Dr. Nba Seth MD -[facility] Work Phone: Start: 04-25-2024 ambulatory [facility] Fa cility:[facility] Start: 04-25-2024 End: 04-28-2024 Evaluation and management of inpatient Dr. Hubert Hastings DO -Progressive Care Unit Work Phone: Start: 04-07-2024 End: 04-07-2024 Emergency department patient visit Dr. Carlos Wang DO -Emergency Department Work Phone: Start: 01-07-2024 End: 2024 Discharged Recurring Susan Biswas PA -Laboratory Work Phone: Start: 01-07-2024 End: 2024 ambulatory [facility] Facility:[facility] Start: 01-01-2024 End: 01-01-2024 Patient encounter procedure [facility] MUSIC THERAPY SPECIALIST-C -Laboratory, [facility] Start: 01-01-2024 End: 01-01-2024 ambulatory [facility] Facility:[facility] Start: 10-17-2022 End: 10-17-2022 ambulatory [facility] Work Phone: [facility] Work Phone: Start: 10-17-2022 End: 10-17-2022 Discharged Recurring [facility] Work Phone: [facility]-Laboratory Work Phone: Start: 09-14-2022 End: 09-17-2022 ambulatory [facility] Work Phone: [facility] Work Phone: Start: 09-14-2022 End: 09-17-2022 Discharged Recurring [facility] Work Phone: [facility]-Laboratory Work Phone: Start: 09-14-2022 End: 09-14-2022 Patient encounter procedure [facility] Work Phone: [facility] Work Phone: Start: 06-14-2022 End: 06-17-2022 ambulatory [facility] Work Phone: [facility] Work Phone: Start: 06-14-2022 End: 06-17-2022 Discharged Recurring [facility] Work Phone: [facility]-Laboratory Start: 03-08-2022 End: 03-08-2022 Patient encounter procedure [facility] Work Phone: [facility]-Pulmonary Medicine [facility] Start: 02-05-2022 Non-patient / Non-visit [facility] Work Phone: [facility] Start: 02-05-2022 End: 02-05-2022 Discharged Recurring [facility] Work Phone: [facility]-Laboratory Start: 02-05-2022 End: 02-05-2022 ambulatory [facility] Work Phone: [facility] Work Phone: Start: 02-05-2022 End: 02-05-2022 Patient encounter procedure [facility] Work Phone: [facility]-Pulmonary Services/Neurology Start: 02-01-2022 Non-patient / Non-visit [facility] Work Phone: [facility] Start: 01-30-2022 End: 01-30-2022 Patient encounter procedure [facility] Work Phone: [facility]-Pulmonary Services/Neurology Start: 01-17-2022 End: 01-17-2022 Discharged Recurring [facility] Work Phone: [facility]-Laboratory Start: 01-09-2022 End: 01-09-2022 Patient encounter procedure [facility] Work Phone: [facility] Start: 12-14-2021 Non-patient / Non-visit [facility] Work Phone: [facility] Start: 12-14-2021 End: 12-14-2021 ambulatory [facility] Work Phone: [facility] Work Phone: Start: 12-14-2021 End: 12-14-2021 Discharged Recurring [facility] Work Phone: [facility]-Laboratory Start: 11-20-2021 Non-patient / Non-visit [facility] Work Phone: [facility] Start: 11-20-2021 End: 11-20-2021 ambulatory [facility] Work Phone: [facility] Work Phone: Start: 11-20-2021 End: 11-20-2021 Patient encounter procedure [facility] Work Phone: [facility]-Cardiovascular Services Start: 11-08-2021 End: 11-08-2021 Patient encounter procedure [facility] Work Phone: [facility] Start: 07-21-2021 End: 07-21-2021 Patient encounter procedure [facility]-Laboratory Start: 07-06-2021 End: 07-06-2021 Patient encounter procedure [facility]-Pulmonary Services/Neurology Start: 05-02-2021 End: 05-02-2021 Patient encounter procedure [facility]-Laboratory Start: 04-12-2021 End: 04-12-2021 Patient encounter procedure [facility]-Laboratory Procedures Date Procedure Procedure Detail Performing Clinician Start: 09-11-2024 X-ray of chest, PA a nd lateral views Evelia Gil NP-C Work Phone: Start: 04-28-2024 Anaerobic microbial culture Evelia Gil NP-C Work Phone: Start: 04-28-2024 Gram stain microscopy Flo Gil MUSIC THERAPY SPECIALIST-C Work Phone: Start: 04-28-2024 End: 04-28-2024 Microbial culture, body fluid Evelia jackson MUSIC THERAPY SPECIALIST-C Work Phone: Start: 04-28-2024 Plain chest X-ray Natalya Gil MUSIC THERAPY SPECIALIST-C Work Phone: Start: 04-28-2024 Blood count leukocyt e wbc automated Evelia Gil MUSIC THERAPY SPECIALIST-C Work Phone: Start: 04-28-2024 Glucose measurement, body fluid Evelia Gil MUSIC THERAPY SPECIALIST-C Work Phone: Start: 04-28-2024 Mononuclear cell count Evelia Gil MUSIC THERAPY SPECIALIST-C Work Phone: Start: 04-28-2024 Polymorphonuclear le ukocyte count Evelia Gil MUSIC THERAPY SPECIALIST-C Work Phone: Start: 04-28-2024 Ultrasonic guidance for thoracentesis Evelia Gil MUSIC THERAPY SPECIALIST-C Work Phone: Start: 04-28-2024 Estimated creatinine clearance Evelia Gil MUSIC THERAPY SPECIALIST-C Work Phone: Start: 04-25-2024 CT of chest without contrast Evelia Gil MUSIC THERAPY SPECIALIST-C Work Phone: Start: 04-25-2024 Urnls dip stick/tabl et reagent auto microscopy Evelia Gil MUSIC THERAPY SPECIALIST-C Work Phone: Start: 04-25-2024 Plain chest X-ray Natalya Gil MUSIC THERAPY SPECIALIST-C Work Phone: Start: 04-25-2024 Parathyroid hormone measurement Evelia Gil MUSIC THERAPY SPECIALIST-C Work Phone: Start: 04-07-2024 X-ray of chest, PA a nd lateral views Evelia Gil MUSIC THERAPY SPECIALIST-C Work Phone: Start: 04-07-2024 D-dimer assay, quantitative Evelia Gil MUSIC THERAPY SPECIALIST-C Work Phone: Comment on above: D-Dimer ELEVATED (>0 .49): Additional studies and clinicalassessments are indicated to conclude diagnosis of:Deep Vein Thrombosis (DVT) or Pulmonary Embolism (PE) Start: 04-07-2024 Estimated creatinine clearance Evelia Gil MUSIC THERAPY SPECIALIST-C Work Phone: Start: 04-07-2024 Measurement of renal function Evelia Gil MUSIC THERAPY SPECIALIST-C Work Phone: Comment on above: GFR Calc Start: 04-07-2024 SARS-CoV-2, Influenz a & RSV (PCR) Evelia BONILLA Work Phone: Start: 06-14-2022 Plain chest X-ray [facility] Work Phone: Plan of Treatment Date Care Activity Detail Author Start: 11-25-2024 Thyroid stimulating hormone measurement [facility] Start: 04-28-2024 Anaerobic Culture Anaerobic Culture [facility] Start: 04-28-2024 Body Fluid Culture Body Fluid Culture [facility] Start: 04-28-2024 Microscopic observation [Identifier] in Unspecified specimen by Gram stain [facility] Start: 04-28-2024 Patient discharge [facility] Start: 04-28-2024 Glucose measurement, body fluid [facility] Start: 04-28-2024 Microbial culture, body fluid [facility] Start: 04-28-2024 Vital signs measurements [facility] Start: 04-26-2024 [facility] Start: 04-25-2024 Following clinical pathway protocol [facility] Start: 04-25-2024 Ambulation without limitation [facility] Start: 04-25-2024 Assessment of risk of venous thromboembolism [facility] Start: 04-25-2024 Insertion of catheter into peripheral vein [facility] Start: 04-25-2024 Measuring intake and output [facility] Start: 04-25-2024 Oxygen therapy [facility] Start: 04-25-2024 Providing care according to standard [facility] Start: 04-25-2024 Referral to occupational therapist [facility] Start: 04-25-2024 Referral to service [facility] Start: 04-25-2024 Cell count and Differential panel - Body fluid [facility] Start: 04-25-2024 Care regimes management [facility] Start: 04-25-2024 Notification of physician [facility] Start: 04-25-2024 Hepatic function panel [facility] Start: 04-25-2024 End: 04-25-2024 [facility] Start: 04-25-2024 Parathyroid hormone measurement [facility] Start: 04-25-2024 Verification routine [facility] Start: 04-25-2024 Admission procedure [facility] Start: 04-25-2024 CT Chest WO contrast [facility] Start: 04-25-2024 CT of chest without contrast Chest without Contrast [facility] Start: 04-25-2024 Hospital admission, emergency, from emergency room, medical nature [facility] Start: 04-25-2024 [facility] Start: 04-25-2024 Patient referral to dietitian [facility] Start: 04-25-2024 [facility] Start: 04-07-2024 End: 04-07-2024 [facility] Alanine aminotransfe rase [Enzymatic activity/volume] in Serum or Plasma [facility] Alanine aminotransfe rase [Enzymatic activity/volume] in Serum or Plasma [facility] Albumin [Mass/volume ] in Serum or Plasma [facility] Albumin [Mass/volume ] in Serum or Plasma [facility] Alkaline phosphatase [Enzymatic activity/volume] in Serum or Plasma [facility] Alkaline phosphatase [Enzymatic activity/volume] in Serum or Plasma [facility] Anion gap in Serum or Plasma [facility] Bacteria identified in Body fluid by Culture [facility] Bacteria identified in Unspecified specimen by Anaerobe culture [facility] Bilirubin, total measurement [facility] Bilirubin, total measurement [facility] Bilirubin.direct [Mass/volume] in Serum or Plasma [facility] BUN/Creatinine ratio [facility] Calcium [Mass/volume ] in Serum or Plasma [facility] Carbon dioxide, tota l [Moles/volume] in Central venous blood [facility] Creatinine [Mass/vol ume] in Serum or Plasma [facility] Cytology report of B alma fluid Cyto stain [facility] Glucose [Mass/volume ] in Serum or Plasma [facility] Hemoglobin A1c/Hemoglobin.total in Blood [facility] Lactate dehydrogenas e [Enzymatic activity/volume] in Body fluid by Pyruvate to lactate reaction [facility] Lactate dehydrogenas e measurement [facility] Measurement of renal function [facility] Patient Education [facility] Work Phone: Patient referral [facility] Work Phone: Potassium measurement [facility] Protein [Mass/volume ] in Body fluid [facility] Prothrombin time [facility] Serum chloride measurement [facility] Sodium measurement [facility] Total protein measurement [facility] Total protein measurement [facility] Troponin T.cardiac [Mass/volume] in Serum or Plasma by High sensitivity method [facility] Troponin T.cardiac [Mass/volume] in Serum or Plasma by High sensitivity method [facility] Urea nitrogen [Mass/ volume] in Serum or Plasma [facility] XR Chest PA and Lateral [facility] Immunizations Immunization Date Immunization Notes Care Provider Fa cili 01-07-2024 Covid (Spikevax) Evelia crouch MUSIC THERAPY SPECIALIST-C Work Phone: [facility] 01-07-2024 influenza, high dose seasonal, preservative-free Evelia Gil MUSIC THERAPY SPECIALIST-C Work Phone: [facility] Payers Date Payer Category Payer Self-pay [id number] 2023 Medicare [id number] 2023 Unknown [id number] 192 [id number] Unknown [id number] 2.16.8 [id number] Unknown [id number] 2.16.8 [id number] Unknown [id number] 2.16.8 [id number] Unknown [id number] 2.16.8 40.1.213857.3.579.2.462 Unknown [id number] 2.16.8 40.1.513609.3.579.2.462 Unknown [id number] 2.16.8 40.1.882513.3.579.2.462 Unknown [id number] 2.16.8 40.1.298664.3.579.2.462 Unknown [id number] 2.16.8 40.1.476631.3.579.2.462 Unknown [id number] 2.16.8 40.1.988939.3.579.2.462 Unknown [id number] 2.16.8 40.1.382835.3.579.2.462 Unknown [id number] 2.16.8 40.1.398445.3.579.2.462 Unknown [id number] 2.16.8 40.1.843551.3.579.2.462 Unknown [id number] 2.16.8 40.1.980420.3.579.2.462 Unknown [id number] 2.16.8 40.1.909896.3.579.2.462 Unknown [id number] 2.16.8 40.1.742547.3.579.2.462 Unknown [id number] 2.16.8 40.1.736995.3.579.2.462 Unknown [id number] 2.16.8 40.1.116073.3.579.2.462 Unknown [id number] 2.16.8 40.1.370399.3.579.2.462 Unknown [id number] 2.16.8 40.1.565995.3.579.2.462 Unknown [id number] 2.16.8 40.1.699336.3.579.2.462 Unknown [id number] 2.16.8 40.1.872554.3.579.2.462 Social History Date Type Detail Facility Start: 01-27-2021 End: 09-14-2022 Tobacco smoking status INIS Unknown if ever smoked [facility] Start: 1950 Sex Assigned At Male [facility] Start: 04-25-2024 End: 04-25-2024 Tobacco smoking status NHIS Ex-smoker (finding) [facility] Start: 04-25-2024 End: 05-18-2024 Sex Male (finding) [facility] Sex Male [facility] Goals Date Patient Goal Desired Activity /State Functional Status Date Assessment Result Facility 04-28-2024 Functional status [place] [facility] Mental Status Date Assessment Result Facility 04-28-2024 Cognitive function Voice/Name [facility] Work Phone: 04-25-2024 Cognitive function Level Of Cons ciousness Awake;Alert;Appropriate;Follow s Commands [facility] Work Phone: Clinical Notes 04-25-2024 to 09-12-2024 Note Date & Type Note Facility 09-12-2024 Radiology Diagnostic study note [facility] Imaging Services [address] [place] [place] [id number] Chest PA and Lateral MR#: [id number] Acct: [id number] Name: BLAYNE MORALES Rep #: [id number] : 1950 M 74 From: Michelle John MD PCP: Linwood Cowart Status: REG CLI Study:Chest PA and Lateral Date of Exam: 09/11/24 Exam# [id number] Ordering Dr: Susan Colby PA EXAM: XR Chest, 2 Views CLINICAL INDICATION: RIGHT PLEURAL EFFUSION TECHNIQUE: Frontal and lateral views of the chest. COMPARISON: No relevant prior studies available. FINDINGS: LUNGS AND PLEURAL SPACES: Right basilar atelectasis or pneumonia. Right pleural effusion. No pneumothorax. HEART: Unremarkable. No cardiomegaly. MEDIASTINUM: Unremarkable. Normal mediastinal contour. BONES/JOINTS: Unremarkable. No acute fracture. RAD/Chest PA and Lateral IMPRESSION: 1. Right basilar atelectasis or pneumonia. 2. Right pleural effusion. Reading Location: [id number] CC: EARL Monson; Linwood Cowart ~ Secretary Bookkeeper: Signed [facility] 09-11-2024 Evaluation note Diagnosis Onset Date Resolution Aortic stenosis acute August 1:44pm Pleural effusion on right acute September 11, 2024 1:44pm Pulmonary hypertension acute Ju ly 2024 1:44pm Essential hypertension chronic Ju ly 2024 1:44pm Paroxysmal atrial fibrillation chronic September 11, 2024 1:44pm Aortic stenosis acute November 252024 1:32pm Pleural effusion on right acute November 25 1:32pm Pulmonary hypertension acute Oc tob2024 1:32pm Essential hypertension chronic Oc tober 2024 1:32pm Paroxysmal atrial fibrillation chronic November 25 1:32pm [facility] Work Phone: 1(267) 277-422005-20-2025 Evaluation note* Diagnosis Onset Date Resolution Status Admit Date Aortic stenosis acute July 07, 2024 3:01pm Dyspnea acute July 07, 2024 3:01pm Pulmonary hypertension acute Ma 2024 3:01pm Essential hypertension chronic Ma 2024 3:01pm Paroxysmal atrial fibrillation chron ic July 07, 2024 3:01pm Aortic stenosis acute August 1:44pm Pleural effusion on right acute September 11, 2024 1:44pm Pulmonary hypertension acute Ju ly 2024 1:44pm Essential hypertension chronic Ju ly 2024 1:44pm Paroxysmal atrial fibrillation chron ic September 11, 2024 1:44pm [facility] Work Phone: 1(394) 482-728003-11-2025 Consult note [facility] Medical Records Department [address] [place] [address] Counseling Note - Pharmacy 04/28/24 1348 MR#: [id number] Acct: [id number] Name: BLAYNE MORALES Rep #:[id number] : 1950 74 From: Samuel Deleon PCP: VIKRAM Bower, MUSIC THERAPY SPECIALIST-C Statu s:ADM IN Y [facility] has performed discharge medication reconciliation and counseling for this patient. The patient's discharge medication list was reviewed for discrepancies and discrepancies were resolved. The patient was counseled on the following discharge medications and changes in medications for homegoing were reviewed. The Reason for Use, instructions for use, and potential side effects were reviewed for all new medications. The patient's questions regarding all of their medications were answered. 1. Furosemide 40 mg PO daily The patient was able to verbally demonstrate an understanding of their dischargemedications. Medications at Discharge Home Medications pravastatin 20 mg tablet 20 mg PO DAILY 01/26/21 glimepiride 4 mg tablet 4 mg PO DAILY #60 tabs 02/07/21 acetaminophen 500 mg capsule 500 mg PO Q6H PRN fever or pain 11/08/21 cyanocobalamin (vitamin B-12) 1,000 mcg capsule 1,000 mcg PO DAILY 11/08/21 ferrous sulfate 325 mg (65 mg iron) capsule,extended release 325 mg PO .3 x week11/08/21 spironolactone 25 mg tablet 25 mg PO DAILY 11/08/21 insulin glargine 100 unit/mL (3 mL) subcutaneous pen (Lantus Solostar U-100 Insulin) 35 unit subcutQPM 01/09/22 cholecalciferol (vitamin D3) 1,250 mcg (50,000 unit) capsule 1,250 mcg PO QWEEK 03/08/22 metformin 500 mg tablet 500 mg PO DAILY 09/14/22 tamsulosin 0.4 mg capsule (Flomax) 0.4 mg PO DAILY 09/14/22 metoprolol tartrate 50 mg tablet 50 mg PO BID #180 tabs 01/07/23 warfarin 4 mg tablet 4 mg PO SUMOTUWETHSA 04/25/24 warfarin 6 mg tablet (Jantoven) 6 mg PO FR blood 04/25/24 furosemide 40 mg tablet (Lasix) 40 mg PO DAILY #30 tabs 04/28/24 04/28/24 1348 r> Date _ Samuel Salinas Signature (if applicable): Date CC: ~ Signed [facility]03-11-2025 Discharge summary [facility] Medical Records Department [address] [place] [address] Instructions for Home/Discharge Instructions 04/28/24 1234 MR#: [id number] Acct: [id number] Name: BLAYNE MORALES Rep #:[id number] : 1950 74 From: Luis Nieto DO PCP: VIKRAM Bower, MUSIC THERAPY SPECIALIST-C Statu s:ADM IN Discharge Instructions Diet Discharge Diet: 1800 Calorie Control Diet DC O2, CPAP, BIPAP needs Home O2 Discharge instructions: No Dressing / Incision Discharge Activity: Return to Normal Activity Weight Bearing Status: Full weight bearing Follow Up Care Test Results: Test results from this visit will be discussed in further detail at your follow- up appointment, if applicable. Discharge Plan Admission Admit Date/Time: 04/25/24 19:00 Primary Reason for Your Visit: Right pleural effusion, hypoxia, congestive heartfailure Attending Provider: Luis Nieto Primary Care Provider: Evelia Gil Consulting Providers: Hubert Hastings; Nba Seth Instructions Patient Instructions: RAD RN Thoracentesis Dc Discharge Orders/Prescriptions Prescriptions: New furosemide [Lasix] 40 mg tablet 40 mg PO DAILY Qty: 30 0RF Continued cyanocobalamin (vitamin B-12) 1,000 mcg capsule 1,000 mcg PO DAILY spironolactone 25 mg tablet 25 mg PO DAILY acetaminophen 500 mg capsule 500 mg PO Q6H PRN (Reason: fever or pain) Lantus Solostar U-100 Insulin 100 unit/mL (3 mL) insulin pen 35 unit subcut QPM cholecalciferol (vitamin D3) 1,250 mcg (50,000 unit) capsule 1,250 mcg PO QWEEK metformin 500 mg tablet 500 mg PO DAILY tamsulosin [Flomax] 0.4 mg capsule 0.4 mg PO DAILY pravastatin 20 mg tablet 20 mg PO DAILY glimepiride 4 mg tablet 4 mg PO DAILY Qty: 60 0RF ferrous sulfate 325 mg (65 mg iron) capsule, extended release 325 mg PO .3 x week warfarin [Jantoven] 6 mg tablet 6 mg PO FR warfarin 4 mg tablet 4 mg PO DEA Protocol: Dose Management Condition: Saturday Dose/Route: 4 mg Instruction: 1 x 4 mg tablet Condition: Saturday Dose/Route: 4 mg Instruction: 1 x 4 mg tablet Condition: Saturday Dose/Route: 4 mg Instruction: 1 x 4 mg tablet Condition: Saturday Dose/Route: 4 mg Instruction: 1 x 4 mg tablet Condition: Dose/Route: 4 mg Instruction: 1 x 4 mg tablet Condition: Saturday Dose/Route: 4 mg Instruction: 1 x 4 mg tablet Condition: Saturday Dose/Route: 4 mg Instruction: 1 x 4 mg tablet Protocol Text: Adjustment Start Date: Saturday01/07/24 INR Value: 1.9 INR Date: 01/07/24 Recheck Date: 01/21/24 Rx Instructions: 1 tablet 4 days a week and 1.5 tablets 3 days a week or as directed metoprolol tartrate 50 mg tablet 50 mg PO BID Qty: 180 3RF Referrals / Follow Up: Evelia Gil, MUSIC THERAPY SPECIALIST-C [Primary Care Provider] - Within 1 Week (Call to confirm appointment) Disposition Disposition (needs filled in before D/C Order can be placed): Home, Self Care 04/28/24 Tai8Luis Nieto DO CC: VIKRMA MUSIC THERAPY SPECIALISTCash Gil; Dr. Hubert Hastings DO; Dr. Nba Seth MD ~ Signed [facility]03-11-2025 [facility] Medical Records Department [address] [place] [address] Discharge Summary 04/28/24 1248 MR#: [id number] Acct: [id number] Name: BLAYNE MORALES Rep #: [id number] : 1950 74 From: Luis Nieto DO PCP: VIKRAM Bower NP-C Status:DIS IN [facility] Providers Date of Admission: 04/25/24 Date of Discharge: 04/28/24 Primary Care Physician: VIKRAM Bower NP-C Reason For Visit: R PLEURAL EFFUSION WITH DYSPNEAON EXERTION Diagnosis Discharge Diagnosis (1) Pleural effusion on right: Status: Acute Code(s): J90 - Pleural effusion, not elsewhere classified Plan 1. Right-sided pleural effusion-secondary to chronic congestive heart failure with a preserved ejection fraction and severe pulmonary hypertension-patient was given vitamin K today to reduce his INR so that he may undergo a right thoracentesis tomorrow. INR will be rechecked. #2 type 2 diabetes-blood sugars will be monitored, patient is on basal insulin and sliding scale insulin the Accu-Cheks #3 permanent atrial fibrillation on Coumadin-again patient's warfarin is being held for his right thoracentesis #4 elevated troponin secondary to demand ischemia-no specific treatment at this time #5 essential hypertension-continue spironolactone and Lopressor #6 hyperlipidemia-patient is on a statin Medications at Discharge Home Medications pravastatin 20 mg tablet 20 mg PO DAILY 01/26/21 glimepiride 4 mg tablet 4 mg PO DAILY #60 tabs 02/07/21 acetaminophen 500 mg capsule 500 mg PO Q6H PRN fever or pain 11/08/21 cyanocobalamin (vitamin B-12) 1,000 mcg capsule 1,000 mcg PO DAILY 11/08/21 ferrous sulfate 325 mg (65 mg iron) capsule,extended release 325 mg PO .3 x week 11/08/21 spironolactone 25 mg tablet 25 mg PO DAILY 11/08/21 insulin glargine 100 unit/mL (3 mL) subcutaneous pen (Lantus Solostar U-100 Insulin) 35 unit subcut QPM 01/09/22 cholecalciferol (vitamin D3) 1,250 mcg (50,000 unit) capsule 1,250 mcg PO QWEEK 03/08/22 metformin 500 mg tablet 500 mg PO DAILY 09/14/22 tamsulosin 0.4 mg capsule (Flomax) 0.4 mg PO DAILY 09/14/22 metoprolol tartrate 50 mg tablet 50 mg PO BID #180 tabs 01/07/23 warfarin 4 mg tablet 4 mg PO SUMOTUWETHSA 04/25/24 warfarin 6 mg tablet (Jantoven) 6 mg PO FR blood 04/25/24 furosemide 40 mg tablet (Lasix) 40 mg PO DAILY #30 tabs 04/28/24 Hospital Course Operations None Procedures Thoracentesis Summary of Care Provided Minutes Spent on Discharge: 31 Hospital Course: Patient was seen and examined in the emergency room at [facility] with complaints of low blood sugar and dyspnea. He had been seen in the emergency room approximately a month ago and diagnosed with a right pleural effusion but refused at that time to have a thoracentesis. Workup in the emergency room included a CBC which showed an elevated white blood cell count at 12.4, chemistry profile was unremarkable, troponin was 77 and beta natruretic peptide was 849. Patient's INR was 3.1. Chest x-ray was obtained, it showed cardiomegaly with right basilar opacification similar in appearance to previous chest x-ray likely representing effusion/atelectasis. Patient was admitted to PCU, due to an elevated INR he was given IV vitamin K and underwent thoracentesis with removal of approximately 1200 cc of fluid from the right pleural cavity. Patient tolerated the procedure well. On 04/28/2024, patient was seen and examined: On examination he appeared in good health and spirits. Vital signs as documented. Skin warm and dry and without overt rashes. Neck without JVD, neck was supple, trachea midline, thyroid was normal. Lungs clear bilaterally, normal air movement was noted. Heart exam notable for regular rhythm, normal sounds and absence of murmurs, rubs or gallops. Abdomen unremarkable and without evidence of organomegaly, masses, or abdominal aortic enlargement. Bowel sounds are present, abdomen is not distended. Extremities nonedematous, no cyanosis was noted, no clubbing was noted. Neuro: Cranial nerves II through XII are grossly intact, no focal motor deficits were noted, sensation to light touch and pinprick intact, motor exam 5/5 throughout. Psych: Patient is alert and oriented x3, he does not appear anxious or depressed, he does not appear agitated. Patient appears stable for discharge home on 04/28/2024 Weight / BMI Weight Weight: 103.4 kg Body Mass Index (BMI) 34.6 ABG / Lab / Microbiology Data 04/28/24 04:54 04/28/24 04:54 Laboratory: Laboratory Results - last 24 hr 04/27/24 05:39: Sodium 139, Potassium 4.1, Chloride 102, Carbon Dioxide 24.3, Anion Gap 13, BUN 20 H , Creatinine 0.97, Estim Creat Clear Calc 79.05, Est GFR (MDRD) Non-Af 83, BUN/Creatinine Ratio 20.7 H, Glucose 153 H, Calcium 10.7, Lactate Dehydrogenase 238, Total Protein 7.5 03 (more content not included)...[facility]03-11-2025 Radiology Diagnostic study note [facility] Imaging Services [address] [place] [address] Thoracentesis W MR#: [id number] Acct: [id number] Name: BLAYNE MORALES Lisa Rep #: [id number] : 1950 M 74 From: Italo Keene MD PCP: Evelia Gil Matilde, MUSIC THERAPY SPECIALIST-C Status: ADM IN Study:Thoracentesis W US Date of Exam: 0 04/28/24 Exam# [id number] Ordering Dr: Hubert Rodriguez DO PROCEDURE: THORACENTESIS W US REASON FOR EXAM: R PLEURAL EFFUSION TECHNIQUE: The procedure as well as the benefits and possible complications including infection and bleeding and pneumothorax were explained to the patient. Informed consent was obtained. The overlying skin was prepped and draped in usual sterile fashion. Following local anesthetic application, a 5 [place] catheter was placed into the right hemithorax. Clear jered colored fluid was aspirated. A total of 1420 mL was aspirated. A 100 mL sample was sent to the laboratory. A chest radiograph was ordered. No immediate complication noted. COMPARISON: None. FINDINGS: 1420 mL of jered colored fluid was aspirated. A 100 mL sample was sent to the laboratory. US/Thoracentesis W US IMPRESSION: Successful right ultrasound-guided thoracentesis. Reading Location: [facility]- CC: [facility] MUSIC THERAPY SPECIALIST-C Evelia Gil; Dr. Hubert Hastings, ~ Secretary Bookkeeper: Signed [facility]03-11-2025 Radiology Diagnostic study note [facility] Imaging Services [address] [place] [address] [id number] Chest Insp/Exp 2 View MR#: [id number] Acct: [id number] Name: BLAYNE MORALES Rep #: [id number] : 1950 M 74 From: Michelle John MD PCP: Evelia Gil Matilde, MUSIC THERAPY SPECIALIST-C Status: ADM IN Study:Chest Insp/Exp 2 View Date of Exam: 04/28/24 Exam# [id number] Ordering Dr: Abhay Blevins i, MD EXAM: XR Chest, 2 Views CLINICAL INDICATION: POST THORACENTESIS TECHNIQUE: Frontal and lateral views of the chest. COMPARISON: XR Chest dated 04/25/2024 FINDINGS: LUNGS AND PLEURAL SPACES: Decreasing right pleural effusion. No pneumothorax. HEART: Cardiomegaly with mild congestion. MEDIASTINUM: Unremarkable. Normal mediastinal contour. BONES/JOINTS: Unremarkable. No acute fracture. RAD/Chest Insp/Exp 2 View IMPRESSION: 1. Cardiomegaly with mild congestion. 2. Decreasing right pleural effusion. No pneumothorax. Reading Location[facility] CC: [facility] MUSIC THERAPY SPECIALISTCash Gil; Dr. Abhay Keene MD ~ Secretary Bookkeeper: Signed [facility]03-09-2025 Progress note Author Nba Seth [facility] Note Date/Time April 26, 2024 3:04 pm [facility] Medical Records Department [address] [facility] [place] [address] Progress Note - Hospitalist 04/26/24813 MR#: [id number] Acct: [id number] Name: BLAYNE MORALES Rep #:[id number] : 1950 74 From: Nba Adler PCP: VIKRAM Bower, MUSIC THERAPY SPECIALIST-Matilde Statu s:ADM IN Location: [place] [address] Reason for Visit Reason for Visit: Diagnoses Pleural effusion, not elsewhere classified (04/25/24) Objective Data Objective Data Vital Signs: Vital Signs Temp Pulse Resp BP Pulse Ox O2 Del Method 97.6 F L 73 18 114/83 H 94 Room Air 04/26/24 03:00 04/26/24 03:00 04/26/24 03:00 04/26/24 03:00 04/26/24 03:00 04/26/24 03:00 Oxygen Delivery Method Room Air Weight: 227 lb 15.327 oz Body Mass Index (BMI) 34.6 Intake & Output: Intake and Output for Last 24 Hours 04/24/24 04/25/24 04/27/24 23:59 23:59 00:59 Intake Total 906.25 / 906.25 Balance 906.25 / 906.25 Lab / Micro Data 04/26/24 07:33 04/26/24 07:33 Labs: Laboratory Results - last 24 hr 04/25/24 17:00: WBC 12.4 H, RBC 5.78, Hgb 14.9, Hct 45.6, MCV 78.9 L, MCH 25.8 L, MCHC 32.7, RDW Std Deviation 45.1 H, RDW Coeff of Flaco 16.2 H, Plt Count 232, MPV 10.1, Immature Gran % (Auto) 0.300, Neut % (Auto) 78.7 H, Lymph % (Auto) 10.4 L, [place] % (Auto) 7.4, Eos % (Auto) 2.8, Baso % (Auto) 0.4, Absolute Neuts (auto) 9.7 H, Absolute Lymphs (auto) 1.29, Nucleated RBC % 0, PT 32.7 H, INR 3.1, Sodium 131 L, Potassium 4.0, Chloride 96 L, Carbon Dioxide 22.0, Anion Gap 13, BUN 18, Creatinine 0.99, Estim Creat Clear Calc 83.06, Est GFR (MDRD) Non-Af80, BUN/Creatinine Ratio 18.5, Glucose 183 H, Calcium 11.2 H, Troponin T High Sens 77 H*, NT pro BNP II 849, PTH Intact 47 04/25/24 18:15: Urine Color Yellow, Urine Clarity Clear, Urine pH 6.0, Ur Specific [place] 1.015, Urine Protein 30 H, Urine Glucose (UA) Normal, Urine Ketones Negative, Urine Occult Blood 10 H, Urine Nitrite Negative, Urine Bilirubin Negative, Urine Urobilinogen Normal, Ur Leukocyte Esterase Negative, Urine RBC 0 SEEN, Urine WBC 0 SEEN, Ur Squamous Epith Cells 0 SEEN, Urine Bacteria 0 SEEN, Urine Mucus 0 SEEN 04/25/24 19:07: Total Bilirubin 1.40 H, Direct Bilirubin 0.75 H, AST 21, ALT 18,Alkaline Phosphatase 131 H, Lactate Dehydrogenase 149, Troponin T Hi Sens 2 Hr 71 H*, Total Protein 7.9, Albumin 4.0, Globulin 3.9 04/25/24 20:40: POC Glucose 177 H 04/25/24 21:11: Troponin T Hi Sens 4Hr 76 H* 04/26/24 06:26: POC Glucose 168 H Radiography Diagnostic Testing: Radiology Impression Chest X-Ray 04/25/24 17:10 IMPRESSION: Cardiomegaly with right basilar opacification, similar in appearance to the prior study, likely representing effusion/atelectasis. Superimposed infection can not be excluded. Reading Location: [facility] Chest CT 04/25/24 18:59 IMPRESSION: Large right pleural effusion with compressive atelectasis. One or more dose reduction techniques were used (e.g., Automated exposure control, adjustment of the mA and/or kV according to patient size, use of iterative reconstruction technique). Reading [facility] Exam Narrative Seen and examined Patient seems mild short of breath. Mild leg swelling. Denies chest pain. Physical exam General: Alert, Oriented x3, Cooperative HEENT: Atraumatic, PERRLA, EOMI, Normocephalic Oral: No Gingival or Mucosal Lesions/ Ulcerations Neck: Supple, No JVD, Negative Carotid Bruits Chest wall/Lungs: Air entry diminished in right lung, large pleural effusion with systolic dullness. Cardiovascular: Regular rhythm, Normal S1, Normal S2, no murmur gallop or rub. Abdomen: Bowel Sounds Present, Soft, Non Tender, Non-Distended : No dysuria. No renal angle tenderness. No suprapubic tenderness. Extremities: Mild 1-2+ pedal/lower leg edema, Capillary Refill Less than 3 Seconds Skin: No rashes, No breakdown Musculoskeletal: No Tenderness to Palpation of Joints or Extremities Neurological: Cranial nerves II-XII grossly intact, DTR 2+/4. No acute focal neurological deficit. Psych/Mental Status: Flat affect. Assessment & Plan Assessment/Plan (1) Pleural effusion on right: PLAN: Plan Patient is a 74-year-old male who presented [facility] ED on 04/25/2024 with worsening shortness of breath on exertion and concern for hypoglycemic episodes. 1. Exertional dyspnea presumed secondary to large right-sided pleural effusion possible due to chronic heart failure although exact type and classification unclear. ? Admit under patient status to PCU. Chest x-ray on admit showed large right- sided pleural effusion that was stable from recent chest x-ray from 04/07. Unclear etiology for effusion but cannot rule out malignancy in setting of smoking history. CT chest without contrast showed similar right large pleural effusion with compressive atelectasis. Ultrasound-guided diagnostic and therapeutic thoracentesis. Given history of pulmonary hypertension as noted below, will order echocardiogram as well. 2. Type 2 diabetes mellitus with reported episodes of hypoglycemia ?Home regimen of Lantus 35 units at night, glimepiride and metformin. Patient reports episodes of hypoglycemia with blood sugars to the 60s and 70s over the past few days and notably has not been taking his home Lantus. He has been taking the glimepiride. Does report fairly poor p.o. intake over the past several days. Blood sugar 183 in the ED. 04/26: Glucose in BMP 183. Ranging about 1 77-208. A1c 7.0% Accu-Chek before meals and at bedtime with Humalog sliding scale coverage and hypoglycemia protocol. 3. Persistent A-fib on Coumadin ? In rate controlled A-fib on admit. INR 3.1. 04/26: INR today 3.4. Hold warfarin. Continue Lopressor continue home warfarin and Lopressor. 4. Mild hyponatremia ? Sodium 131, chloride 96 on admit. Suspect due to poor p.o. intake recently. Will give 1 L of normal saline over several hours on admit. Follow-up a.m. BMP. 04/26: Serum sodium 133, potassium 4.2. Continue oral intake. Will not give any further IV fluid because of right large pleural effusion and patient on 2 L of oxygen. 5. Elevated troponin ? Troponin 77, repeat pending. No ischemic EKG changes noted and no chest pain reported. Suspect secondary to demand ischemia. Follow-up repeat troponin. 04/26: Serial troponins flat or intermittent 77, 76, troponin, and [place] less than 6 therefore ACS ruled out. Does not need further. 6. Mild hypercalcemia ? Calcium 11.2 on admit. Notably was 11.3 on 04/07. PTH ordered 04/26: Repeat calcium 10.8. PTH 47. 7. Mild acute debility ? PT/OT/case management consulted. Chronic medical conditions: ? Class I obesity: BMI 34 on admit. Complicates hospital course, care and prognosis. ? Hypertension: Hypertensive to the 140s on admit. Continue home spironolactoneand Lopressor. ? Hyperlipidemia: Continue home statin. ? Pulmonary hypertension with restrictive airway disease: Previously followed with pulmonology here. Not on home oxygen. Last echo in 11/2021 showed EF 65% with apparent mild pulmonary hypertension. Echo in 2020 showed apparent severe pulmonary hypertension. Repeat echo ordered as above. ? BPH with obstructive symptoms: Continue home Flomax. DVT prophylaxis: Not indicated, on warfarin CODE STATUS: Full code, verified Laboratory Results 04/25/24 17:00: WBC 12.4 H, RBC 5.78, Hgb 14.9, Hct 45.6, MCV 78.9 L, MCH 25.8 L, MCHC 32.7, RDW Std Deviation 45.1 H, RDW Coeff of Flaco 16.2 H, Plt Count 232, MPV 10.1, Immature Gran % (Auto) 0.300, Neut % (Auto) 78.7 H, Lymph % (Auto) 10.4 L, [place] % (Auto) 7.4, Eos % (Auto) 2.8, Baso % (Auto) 0.4, Absolute Neuts (auto) 9.7 H, Absolute Lymphs (auto) 1.29, Nucleated RBC % 0, PT 32.7 H, INR 3.1, Sodium 131 L, Potassium 4.0, Chloride 96 L, Carbon Dioxide 22.0, Anion Gap 13, BUN 18, Creatinine 0.99, Estim Creat Clear Calc 83.06, Est GFR (MDRD) Non-Af80, BUN/Creatinine Ratio 18.5, Glucose 183 H, Calcium 11.2 H, Troponin T High Sens 77 H*, NT pro BNP II 849, PTH Intact 47 04/25/24 18:15: Urine Color Yellow, Urine Clarity Clear, Urine pH 6.0, Ur Specific [place] 1.015, Urine Protein 30 H, Urine Glucose (UA) Normal, Urine Ketones Negative, Urine Occult Blood 10 H, Urine Nitrite Negative, Urine Bilirubin Negative, Urine Urobilinogen Normal, Ur Leukocyte Esterase Negative, Urine RBC 0 SEEN, Urine WBC 0 SEEN, Ur Squamous Epith Cells 0 SEEN, Urine Bacteria 0 SEEN, Urine Mucus 0 SEEN 04/25/24 19:07: Total Bilirubin 1.40 H, Direct Bilirubin 0.75 H, AST 21, ALT 18,Alkaline Phosphatase 131 H, Lactate Dehydrogenase 149, Troponin T Hi Sens 2 Hr 71 H*, Total Protein 7.9, Albumin 4.0, Globulin 3.9 04/25/24 20:40: POC Glucose 177 H 04/25/24 21:11: Troponin T Hi Sens 4Hr 76 H* 04/26/24 06:26: POC Glucose 168 H 04/26/24 07:33: WBC 10.4, RBC 5.66, Hgb 14.6, Hct 45.0, MCV 79.5 L, MCH 25.8 L, MCHC 32.4, RDW Std Deviation 46.0 H, RDW Coeff of Flaco 16.3 H, Plt Count 241, MPV10.1, PT 34.7 H, INR 3.4, Sodium 133, Potassium 4.2, Chloride 98, Carbon Ioemzqa53.8, Anion Gap 12, BUN 18, Creatinine 0.98, Estim Creat Clear Calc 78.24, Est GFR (MDRD) Non-Af 82, BUN/Creatinine Ratio 18.3, Glucose 158 H, Hemoglobin A1c 7.0, Calcium 10.8 04/26/24 12:23: POC Glucose 208 H Charges/Coding Visit Charges Inpatient E&M: 33033 Subs Hosp L2 04/26/24 1504 <Electronically signed by Nba Seth MD> Cosigner Signature (if applicable): CC: ~ Signed [facility] Work Phone: [phone]) 762-993503-09-2025 Progress note [facility] Medical Records Department [address] [place] [address] Progress Note - Hospitalist 04/26/24 0814 MR#: [id number] Acct: [id number] Name: BLAYNE MORALES Rep #:[id number] : 1950 74 From: Nba Adler PCP: VIKRAM Bower, MUSIC THERAPY SPECIALIST-C Statu s:ADM IN Location: [place] [address] Reason for Visit Reason for Visit: Diagnoses Pleural effusion, not elsewhere classified (04/25/24) Objective Data Objective Data Vital Signs: Vital Signs Temp Pulse Resp BP Pulse Ox O2 Del Method 97.6 F L 73 18 114/83 H 94 Room Air 04/26/24 03:00 04/26/24 03:00 04/26/24 03:00 04/26/24 03:00 04/26/24 03:00 04/26/24 03:00 Oxygen Delivery Method Room Air Weight: 227 lb 15.327 oz Body Mass Index (BMI) 34.6 Intake & Output: Intake and Output for Last 24 Hours 04/24/24 04/25/24 04/27/24 23:59 23:59 00:59 Intake Total 906.25 / 906.25 Balance 906.25 / 906.25 Lab / Micro Data 04/26/24 07:33 04/26/24 07:33 Labs: Laboratory Results - last 24 hr 04/25/24 17:00: WBC 12.4 H, RBC 5.78, Hgb 14.9, Hct 45.6, MCV 78.9 L, MCH 25.8 L, MCHC 32.7, RDW Std Deviation 45.1 H, RDW Coeff of Flaco 16.2 H, Plt Count 232, MPV 10.1, Immature Gran % (Auto) 0.300, Neut % (Auto) 78.7 H, Lymph % (Auto) 10.4 L, [place] % (Auto) 7.4, Eos % (Auto) 2.8, Baso % (Auto) 0.4,Absolute Neuts (auto) 9.7 H, Absolute Lymphs (auto) 1.29, Nucleated RBC % 0, PT 32.7 H, INR 3.1, Sodium 131 L, Potassium 4.0, Chloride 96 L, Carbon Dioxide 22.0, Anion Gap 13, BUN 18, Creatinine 0.99, Estim Creat Clear Calc 83.06, Est GFR (MDRD) Non- Af80, BUN/Creatinine Ratio 18.5, Glucose 183 H, Calcium 11.2 H, Troponin T High Sens 77 H*, NT pro BNP II 849, PTH Intact 47 04/25/24 18:15: Urine Color Yellow, Urine Clarity Clear, Urine pH 6.0, Ur Specific [place] 1.015, Urine Protein 30 H, Urine Glucose (UA) Normal, Urine Ketones Negative, Urine Occult Blood 10 H, UrineNitrite Negative, Urine Bilirubin Negative, Urine Urobilinogen Normal, Ur Leukocyte Esterase Negative, Urine RBC 0 SEEN, Urine WBC 0 SEEN, Ur Squamous Epith Cells 0 SEEN, Urine Bacteria 0 SEEN, UrineMucus 0 SEEN 04/25/24 19:07: Total Bilirubin 1.40 H, Direct Bilirubin 0.75 H, AST 21, ALT 18,Alkaline Phosphatase 131 H, Lactate Dehydrogenase 149, Troponin T Hi Sens 2 Hr 71 H*, Total Protein 7.9, Albumin 4.0, Globulin 3.9 04/25/24 20:40: POC Glucose 177 H 04/25/24 21:11: Troponin T Hi Sens 4Hr 76 H* 04/26/24 06:26: POC Glucose 168 H Radiography Diagnostic Testing: Radiology Impression Chest X-Ray 04/25/24 17:10 IMPRESSION: Cardiomegaly with right basilar opacification, similar in appearance to the prior study, likely representing effusion/atelectasis. Superimposed infection can not be excluded. Reading Location: [facility] Chest CT 04/25/24 18:59 IMPRESSION: Large right pleural effusion with compressive atelectasis. One or more dose reduction techniques were used (e.g., Automated exposure control, adjustment of the mA and/or kV according to patient size, use of iterative reconstruction technique). Reading Location: [facility] Physical Exam Narrative Seen and examined Patient seems mild short of breath. Mild leg swelling. Denies chest pain. Physical exam General: Alert, Oriented x3, Cooperative HEENT: Atraumatic, PERRLA, EOMI, Normocephalic Oral: No Gingival or Mucosal Lesions/ Ulcerations Neck: Supple, No JVD, Negative Carotid Bruits Chest wall/Lungs: Air entry diminished in right lung, large pleural effusion with systolic dullness. Cardiovascular: Regular rhythm, Normal S1, Normal S2, no murmur gallop or rub. Abdomen: Bowel Sounds Present, Soft, Non Tender, Non-Distended : No dysuria. No renal angle tenderness. No suprapubic tenderness. Extremities: Mild 1-2+ pedal/lower leg edema, Capillary Refill Less than 3 Seconds Skin: No rashes, No breakdown Musculoskeletal: No Tenderness to Palpation of Joints or Extremities Neurological: Cranial nerves II-XII grossly intact, DTR 2+/4. No acute focal neurological deficit. Psych/Mental Status: Flat affect. Assessment & Plan Assessment/Plan (1) Pleural effusion on right: PLAN: Plan Patient is a 74-year-old male who presented [facility] ED on 04/25/2024 with worsening shortness of breath on exertion and concern for hypoglycemic episodes. 1. Exertional dyspnea presumed secondary to large right-sided pleural effusion possible due to chronic heart failure although exact type and classification unclear. ? Admit under patient status to PCU. Chest x-ray on admit showed large right- sided pleural effusionthat was stable from recent chest x-ray from 04/07. Unclear etiology for effusion but cannot rule out malignancy in setting of smoking history. CT chest without contrast showed similar right large pleural effusion with compressive atelectasis. Ultrasound-guided diagnostic and therapeutic thoracentesis. Given history of pulmonary hypertension as noted below, will order echocardiogram as well. 2. Type 2 diabetes mellitus with reported episodes of hypoglycemia ?Home regimen of Lantus 35 units at night, glimepiride and metformin. Patient reports episodes of hypoglycemia with blood sugars to the 60s and 70s over the past few days and notably has not been taking his home Lantus. He has been taking the glimepiride. Does report fairly poor p.o. intake over the past several days. Blood sugar 183 in the ED. 04/26: Glucose in BMP 183. Ranging about 1 77-208. A1c 7.0% Accu-Chek before meals and at bedtime with Humalog sliding scale coverage and hypoglycemia protocol. 3. Persistent A-fib on Coumadin ? In rate controlled A-fib on admit. INR 3.1. 04/26: INR today 3.4. Hold warfarin. Continue Lopressor continue home warfarin and Lopressor. 4. Mild hyponatremia ? Sodium 131, chloride 96 on admit. Suspect due to poor p.o. intake recently. Will give 1 L of normal saline over several hours on admit. Follow-up a.m. BMP. 04/26: Serum sodium 133, potassium 4.2. Continue oral intake. Will not give any further IV fluid because of right large pleural effusion and patient on 2 L of oxygen. 5. Elevated troponin ? Troponin 77, repeat pending. No ischemic EKG changes noted and no chest pain reported. Suspect secondary to demand ischemia. Follow-up repeat troponin. 04/26: Serial troponins flat or intermittent 77, 76, troponin, and [place] less than 6 therefore ACS ruled out. Does not need further. 6. Mild hypercalcemia ? Calcium 11.2 on admit. Notably was 11.3 on 04/07. PTH ordered 04/26: Repeat calcium 10.8. PTH 47. 7. Mild acute debility ? PT/OT/case management consulted. Chronic medical conditions: ? Class I obesity: BMI 34 on admit. Complicates hospital course, care and prognosis. ? Hypertension: Hypertensive to the 140s on admit. Continue home spironolactoneand Lopressor. ? Hyperlipidemia: Continue home statin. ? Pulmonary hypertension with restrictive airway disease: Previously followed with pulmonology here. Not on home oxygen. Last echo in 11/2021 showed EF 65% with apparent mild pulmonary hypertension. Echo in 2020 showed apparent severe pulmonary hypertension. Repeat echo ordered as above. ? BPH with obstructive symptoms: Continue home Flomax. DVT prophylaxis: Not indicated, on warfarin CODE STATUS: Full code, verified Laboratory Results 04/25/24 17:00: WBC 12.4 H, RBC 5.78, Hgb 14.9, Hct 45.6, MCV 78.9 L, MCH 25.8 L, MCHC 32.7, RDW Std Deviation 45.1 H, RDW Coeff of Flaco 16.2 H, Plt Count 232, MPV 10.1, Immature Gran % (Auto) 0.300, Neut % (Auto) 78.7 H, Lymph % (Auto) 10.4 L, [place] % (Auto) 7.4, Eos % (Auto) 2.8, Baso % (Auto) 0.4,Absolute Neuts (auto) 9.7 H, Absolute Lymphs (auto) 1.29, Nucleated RBC % 0, PT 32.7 H, INR 3.1, Sodium 131 L, Potassium 4.0, Chloride 96 L, Carbon Dioxide 22.0, Anion Gap 13, BUN 18, Creatinine 0.99, Estim Creat Clear Calc 83.06, Est GFR (MDRD) Non- Af80, BUN/Creatinine Ratio 18.5, Glucose 183 H, Calcium 11.2 H, Troponin T High Sens 77 H*, NT pro BNP II 849, PTH Intact 47 04/25/24 18:15: Urine Color Yellow, Urine Clarity Clear, Urine pH 6.0, Ur Specific [place] 1.015, Urine Protein 30 H, Urine Glucose (UA) Normal, Urine Ketones Negative, Urine Occult Blood 10 H, UrineNitrite Negative, Urine Bilirubin Negative, Urine Urobilinogen Normal, Ur Leukocyte Esterase Negative, Urine RBC 0 SEEN, Urine WBC 0 SEEN, Ur Squamous Epith Cells 0 SEEN, Urine Bacteria 0 SEEN, UrineMucus 0 SEEN 04/25/24 19:07: Total Bilirubin 1.40 H, Direct Bilirubin 0.75 H, AST 21, ALT 18,Alkaline Phosphatase 131 H, Lactate Dehydrogenase 149, Troponin T Hi Sens 2 Hr 71 H*, Total Protein 7.9, Albumin 4.0, Globulin 3.9 04/25/24 20:40: POC Glucose 177 H 04/25/24 21:11: Troponin T Hi Sens 4Hr 76 H* 04/26/24 06:26: POC Glucose 168 H 04/26/24 07:33: WBC 10.4, RBC 5.66, Hgb 14.6, Hct 45.0, MCV 79.5 L, MCH 25.8 L, MCHC 32.4, RDW Std Deviation 46.0 H, RDW Coeff of Flaco 16.3 H, Plt Count 241, MPV10.1, PT 34.7 H, INR 3.4, Sodium 133, Potassium 4.2, Chloride 98, Carbon Ymmoefr26.8, Anion Gap 12, BUN 18, Creatinine 0.98, Estim Creat Clear Calc 78.24, Est GFR (MDRD) Non-Af 82, BUN/Creatinine Ratio 18.3, Glucose 158 H, Hemoglobin A1c 7.0, Calcium 10.8 04/26/24 12:23: POC Glucose 208 H Charges/Coding Visit Charges Inpatient E&M: 50461 Subs Hosp L2 04/26/24 1504 Cosigner Signature (if applicable): CC: ~ Signed [facility]03-08-2025 Discharge summary Author Cindy Mendez [facility] Note Date/Time April 25, 2024 7:57 pm [facility] Medical Records Department [address] [place] [address] Emergency Department Summary 04/25/24 MR#: [id number] Acct: [id number] Name: BLAYNE MORALES Rep #:[id number] : 1950 74 From: Cindy Mendez DO PCP: VIKRAM Bower, MUSIC THERAPY SPECIALIST-C Statu s:ADM IN Location: [place] [address] HPI History of Present Illness Chief Complaint: Hypoglycemia Detail of Chief Complaint: Low blood sugar and exertional dyspnea Informant: patient Narrative Narrative: Patient presents to the emergency department complaint low blood sugar that started 3 days ago. States he has not taken insulin in the last 3 days. His blood sugar has been dropping into the 70s. Patient also complains of exertional dyspnea. Patient was seen in the emergency department about a month ago and diagnosed with a right pleural effusion but refused admission to have thoracentesis. Patient states that his father had at that time and had a lot going on so he did not want to stay. He denies any chest pain. Denies fever or chills or sweats. He describes frequent urination. [facility] Medical History Cardiac murmur Chronic kidney disease (CKD) Frequent headaches Hyperlipidemia Paroxysmal atrial fibrillation Atrial fibrillation with rapid ventricular response (01/2021) Essential hypertension Severe protein-calorie malnutrition HELENA (acute kidney injury) Abrasion of cornea, right Diabetes Home Medications ?Medication ?Instructions ?Recorded ?Last Taken ?Type pravastatin 20 mg tablet 20 mg PO DAILY 01/26/21 Unkn own History glimepiride 4 mg tablet 4 mg PO DAILY #60 tabs 02/07 Unknown Rx acetaminophen 500 mg capsule 500 mg PO Q6H PRN fever o r pain 11/08/21 Unknown History cyanocobalamin (vitamin B-12) 1,000 mcg PO DAILY 11/08 Unknown History 1,000 mcg capsule ferrous sulfate 325 mg (65 mg 325 mg PO .3 x week 10/20 03/11 Unknown History iron) capsule,extended release spironolactone 25 mg tablet 25 mg PO DAILY 11/08/21 Un known History insulin glargine 100 unit/mL (3 35 unit subcut QPM Unknown History mL) subcutaneous pen (Lantus Solostar U-100 Insulin) cholecalciferol (vitamin D3) 1,250 1,250 mcg PO QWEEK 03/08/22 Unknown History mcg (50,000 unit) capsule metformin 500 mg tablet 500 mg PO DAILY 09/14/22 Unk nown History tamsulosin 0.4 mg capsule (Flomax) 0.4 mg PO DAILY Unknown History metoprolol tartrate 50 mg tablet 50 mg PO BID #180 tab s 01/07/23 Unknown Rx warfarin 4 mg tablet 4 mg PO DAILY #180 tabs 08/19 08/11 Unknown Rx Allergy/AdvReac Type Severity Reaction Status Date / Time amlodipine (From Lotrel) Allergy Severe Other Verified 04/25/24 16:35 benazepril (From Lotrel) Allergy Severe Other Verified 04/25/24 16:35 Surgical History History of cataract surgery Social History Smoking Status: Former smoker ROS ROS ED ROS Narrative Hypoglycemia Review of Systems ROS Unobtainable: other Constitutional Constitutional ED: Reports lethargy; Denies chills, fever(s), sweats or weight loss Eyes Eyes: Denies blurry vision, change in vision or diplopia ENT ENT ED: Denies rhinorrhea or sore throat Cardiovascular Cardiovascular: Denies chest pain, orthopnea or racing heartbeat Respiratory/Chest Respiratory/Chest: Reports cough, dyspnea and dyspnea on exertion; Denies orthopnea or sputum Gastrointestinal Gastrointestinal: Denies abdominal pain, diarrhea, nausea or vomiting Genitourinary Genitourinary ED: Denies dysuria, hematuria or urinary frequency Musculoskeletal Musculoskeletal: Denies arthralgias, back pain, myalgias or neck pain Integumentary Denies abscess, Abrasions or rash Neurologic Neurologic: Denies headache(s) or weakness Psychiatric Psychiatric: Denies anxiety, depression or suicidal thoughts Endocrine Endocrinology: Denies polydipsia, polyphagia or polyuria Hematologic/Lymphatic Hematologic/Lymphatic: Denies easy bleeding, easy bruising or lymphadenopathy Allergic/Immunologic Allergic/Immunologic ED: Denies mouth swelling, tongue swelling or urticaria EXAM Physical Exam Const Vital Signs: 04/25/24 16:30 04/25/24 16:34 04/25/24 16:57 Temperature 97.6 F L 97.6 F L Temperature Source Temporal Temporal Pulse Rate 84 87 Respiratory Rate 17 19 H Respiratory Effort Short of Breath Respiratory Pattern Tachypnea Blood Pressure 180/120 H 180/120 H Blood Pressure Mean 140 140 Pulse Ox 93 94 Oxygen Delivery Method Room Air 04/25/24 17:34 04/25/24 18:00 Temperature 97.7 F L 97.8 F Temperature Source Oral Oral Pulse Rate 104 H 104 H Respiratory Rate 18 20 H Respiratory Effort Respiratory Pattern Blood Pressure 140/105 H 142/84 H Blood Pressure Mean 116 103 Pulse Ox 93 93 Oxygen Delivery Method Room Air Room Air Positive well nourished and well developed General Appearance ED: well developed and NAD HEENT Reports TM's clear and moist mucous membranes normocephalic and atraumatic; Negative for trauma or tenderness Tympanic Membrane ED: Yes TM's clear Eyes PERRL and EOMs intact bilaterally General Eye ED: Negative for pale conjunctiva or scleral icterus Neck no lymphadenopathy, supple and no JVD General: Negative for tenderness Chest Wall inspection of chest normal and palpation of chest normal Chest: Negative for tenderness Resp normal respiratory effort and No clear to auscultation bilaterally Resp Narrative: Decreased breath sounds right lower lobe with few Rales Effort and Inspection: Negative for respiratory distress or pain with movement Auscultation: Negative for rhonchi, wheezes or diminished lung sounds Cardio regular rate, regular rhythm, S1 normal heart sound, S2 normal heart sound and no murmurs Peripheral Pulses: pulses 2+ throughout GI normal to inspection, nondistended, normoactive bowel sounds, soft to palpation,non-tender, non-distended and no masses Back/Spine no CVA tenderness and no thoracic nor lumbar tenderness Extremity normal to inspection General Extremety ED: Negative for edema General Extremity: Negative for edema Neuro oriented x3, CN's II-XII intact bilaterally, no sensory deficits noted and gait normal Sensorium / Orientation: awake, alert, oriented to person, oriented to place andoriented to time Motor Exam: strength 5/5 throughout and strength abnormal Psych mental status grossly normal Skin no rashes or lesions noted and no wounds MDM MDM MDM Narrative Medical decision making narrative: Patient presents with complaints of hypoglycemia for the last 3 days. Complainsof exertional dyspnea with a slight cough. He was seen in March and refused admission at that time as he was noted to have a right pleural effusion. He hadprior chest x-ray and 2023 that showed a right effusion versus consolidation versus could not rule out mass. He has had no further workup on this. IV line established. EKG obtained on arrival showed atrial fibrillation with ventricular rate of 107 bpm with no acute ST segment changes. CBC with differential shows a white count of 12.4 with hemoglobin 14.9 and platelet countof 232. Chemistries unremarkable. Troponin was elevated at 77. BT MUSIC THERAPY SPECIALIST was 849. Patient states that he has been having some intermittent chest discomfort but not necessarily exertional. Case will be discussed with hospitalist to evaluatepatient for admission Lab Data Attestation: I reviewed the patient's lab results. Labs: Laboratory Results - last 24 hr 04/25/24 17:00 WBC 12.4 H RBC 5.78 Hgb 14.9 Hct 45.6 MCV 78.9 L MCH 25.8 L MCHC 32.7 RDW Std Deviation 45.1 H RDW Coeff of Flaco 16.2 H Plt Count 232 MPV 10.1 Immature Gran % (Auto) 0.300 Neut % (Auto) 78.7 H Lymph % (Auto) 10.4 L [place] % (Auto) 7.4 Eos % (Auto) 2.8 Baso % (Auto) 0.4 Absolute Neuts (auto) 9.7 H Absolute Lymphs (auto) 1.29 Nucleated RBC % 0 PT 32.7 H INR 3.1 Sodium 131 L Potassium 4.0 Chloride 96 L Carbon Dioxide 22.0 Anion Gap 13 BUN 18 Creatinine 0.99 Estim Creat Clear Calc 83.06 Est GFR (MDRD) Non-Af 80 BUN/Creatinine Ratio 18.5 Glucose 183 H Calcium 11.2 H Troponin T High Sens 77 H* NT pro BNP II 849 Radiography Diagnostic Testing: Clinical Impression(s) from Imaging Studies Chest X-Ray 04/25/24 17:10 IMPRESSION: Cardiomegaly with right basilar opacification, similar in appearance to the prior study, likely representing effusion/atelectasis. Superimposed infection can not be excluded. Reading Location: [facility] 1 view chest x-ray obtained interpreted by myself as right pleural effusion versus possible mass with effusion. Radiology in agreement. EKG Initial EKG: Attestation: I personally reviewed and interpreted this EKG as follows: Comments: Atrial fibrillation with ventricular rate of 107 bpm with no acute ST segment changes Discharge Plan Triage Chief Complaint: Hypoglycemia ED Provider: Cindy Mendez Dx/Rx/DC Orders Clinical Impression: Acute dyspnea, Elevated troponin, Non-ST elevation AL (NSTEMI), Pleural effusion on right Prescriptions: No Action cyanocobalamin (vitamin B-12) 1,000 mcg capsule 1,000 mcg PO DAILY spironolactone 25 mg tablet 25 mg PO DAILY acetaminophen 500 mg capsule 500 mg PO Q6H PRN (Reason: fever or pain) Lantus Solostar U-100 Insulin 100 unit/mL (3 mL) insulin pen 35 unit subcut QPM cholecalciferol (vitamin D3) 1,250 mcg (50,000 unit) capsule 1,250 mcg PO QWEEK metformin 500 mg tablet 500 mg PO DAILY tamsulosin [Flomax] 0.4 mg capsule 0.4 mg PO DAILY warfarin 4 mg tablet 4 mg PO DAILY Qty: 180 3RF Protocol: Dose Management Condition: Saturday Dose/Route: 4 mg Instruction: 1 x 4 mg tablet Condition: Saturday Dose/Route: 4 mg Instruction: 1 x 4 mg tablet Condition: Saturday Dose/Route: 4 mg Instruction: 1 x 4 mg tablet Condition: Saturday Dose/Route: 4 mg Instruction: 1 x 4 mg tablet Condition: Dose/Route: 4 mg Instruction: 1 x 4 mg tablet Condition: Saturday Dose/Route: 4 mg Instruction: 1 x 4 mg tablet Condition: Saturday Dose/Route: 4 mg Instruction: 1 x 4 mg tablet Protocol Text: Adjustment Start Date: Saturday01/07/24 INR Value: 1.9 INR Date: 01/07/24 Recheck Date: 01/21/24 Rx Instructions: 1 tablet 4 days a week and 1.5 tablets 3 days a week or as directed pravastatin 20 mg tablet 20 mg PO DAILY glimepiride 4 mg tablet 4 mg PO DAILY Qty: 60 0RF ferrous sulfate 325 mg (65 mg iron) capsule, extended release 325 mg PO .3 x week metoprolol tartrate 50 mg tablet 50 mg PO BID Qty: 180 3RF Primary Care Provider: Evelia Gil Referrals: Evelia Gil, MUSIC THERAPY SPECIALIST-C [Primary Care Provider] - Print Language: Croatian Disposition Disposition: Acute Care Hospital [facility] What to do if you have Problems For any increased pain, shortness of breath, bleeding, nausea or vomiting, chestpain, or any unexpected problems, contact your Primary Care Provider. Call [facility] ([phone]) or report to the closest Emergency Room. Call 911 if necessary. 04/25/242056 <Electronically signed by Cindy Mendez DO> Cosigner Signature (if applicable): CC: VIKRAM MUSIC THERAPY SPECIALIST-C Evelia Gil ~ Signed [facility] Work Phone: [phone] 288-143403-08-2025 History and physical note Author Hubert Hastings [facility] Note Date/Time April 25, 2024 7:23 pm [facility] Medical Records Department [address] [place] [address] H&P Exam - Hospitalist 04/25/24 1831 MR#: [id number] Acct: [id number] Name: BLAYNE MORALES Rep #:[id number] : 1950 74 From: Hubert valero DO PCP: Evelia Gil Matilde, MUSIC THERAPY SPECIALIST-C Statu s:ADM IN Location: [facility] [id number] HPI - General General Date of Admission: 04/25/24 Date of Service: 04/25/24 Chief Complaint: Worsening shortness of breath with exertion and concern for hypoglycemic episodes HPI Narrative BLAYNE MORALES, is a 74 M who presented to [facility] ED on 04/25/2024 with worsening shortness of breath with exertion and concern for hypoglycemic episodes. Patient was seen in the ER here on 04/07 for similar concern. Was found on chest x-ray to have cardiomegaly with a large right-sidedpleural effusion. Admission was recommended but patient opted to leave AGAINST MEDICAL ADVICE. Noted that his father had just and he was dealing with several things at home. He returned to the ED today with continued shortness of breath with exertion. He also has had reported intermittent episodes of hypoglycemia. He is on Lantus 35 units at night, glimepiride and metformin for diabetes but states that he has not taken his insulin now for several days. States that he has had some blood sugar checks in the 60s to 70s which he notes is low for him, and he had hypoglycemic symptoms with this. In the ED today patient was hypertensive to the 140s systolic and mildly tachycardic. He was breathing comfortably on room air at rest with saturations in the low to mid 90s. Chest x-ray appeared essentially the same as chest x-harsha 04/07. Labs notable for WBC count 12, sodium 131, chloride 96, calcium 11.2. BNP was in the high normal range. Initial troponin was elevated at 77, repeat pending. Notably no ischemic changes were noted on EKG. Patient is a former smoker, quit smoking back in 2005. Given all of these findings, hospitalist wascontacted for admission. I saw the patient at bedside in the ED, friend was present. Patient was mildly fatigued appearing but otherwise sitting back comfortably in bed. Patient did answer questions appropriately but was very deliberate with his speech and conversation did take some time. He lives at home alone and reports good functional status at baseline. Denies any recent weight loss. Denies any fevers or chills. Denies any chest pain currently or any recent chest pain episodes. Reports taking home medications as prescribed aside from the long-acting insulin that he is held. No other acute concerns at this time. [facility] Medical History Cardiac murmur Chronic kidney disease (CKD) Frequent headaches Hyperlipidemia Paroxysmal atrial fibrillation Atrial fibrillation with rapid ventricular response (01/2021) Essential hypertension Severe protein-calorie malnutrition HELENA (acute kidney injury) Abrasion of cornea, right Diabetes Home Medications ?Medication ?Instructions ?Recorded ?Last Taken ?Type pravastatin 20 mg tablet 20 mg PO DAILY 01/26/21 Unkn own History glimepiride 4 mg tablet 4 mg PO DAILY #60 tabs 02/07 Unknown Rx acetaminophen 500 mg capsule 500 mg PO Q6H PRN fever o r pain 11/08/21 Unknown History cyanocobalamin (vitamin B-12) 1,000 mcg PO DAILY 11/08 Unknown History 1,000 mcg capsule ferrous sulfate 325 mg (65 mg 325 mg PO .3 x week 10/20 03/11 Unknown History iron) capsule,extended release spironolactone 25 mg tablet 25 mg PO DAILY 11/08/21 Un known History insulin glargine 100 unit/mL (3 35 unit subcut QPM Unknown History mL) subcutaneous pen (Lantus Solostar U-100 Insulin) cholecalciferol (vitamin D3) 1,250 1,250 mcg PO QWEEK 03/08/22 Unknown History mcg (50,000 unit) capsule metformin 500 mg tablet 500 mg PO DAILY 09/14/22 Unk nown History tamsulosin 0.4 mg capsule (Flomax) 0.4 mg PO DAILY Unknown History metoprolol tartrate 50 mg tablet 50 mg PO BID #180 tab s 01/07/23 Unknown Rx warfarin 4 mg tablet 4 mg PO DAILY #180 tabs 08/19 08/11 Unknown Rx Allergy/AdvReac Type Severity Reaction Status Date / Time amlodipine (From Lotrel) Allergy Severe Other Verified 04/25/24 16:35 benazepril (From Lotrel) Allergy Severe Other Verified 04/25/24 16:35 Surgical History History of cataract surgery Social History Smoking Status: Former smoker ROS Constitutional Constitutional: Reports fatigue; Denies chills, fever(s) or weakness Eyes Eyes: Denies change in vision Cardiovascular Cardiovascular: Reports dyspnea on exertion; Denies chest pain, edema or lightheadedness Respiratory/Chest Respiratory/Chest: Reports cough and shortness of breath with exertion; Denies productive cough, shortness of breath at rest or wheezing Gastrointestinal Gastrointestinal: Denies abdominal pain Genitourinary Genitourinary: Denies dysuria Musculoskeletal Musculoskeletal: Denies arthralgias or myalgias Vital Signs Vital Signs Vital Signs: 04/25/24 16:30 04/25/24 16:34 04/25/24 16:57 Temperature 97.6 F L 97.6 F L Temperature Source Temporal Temporal Pulse Rate 84 87 Respiratory Rate 17 19 H Respiratory Effort Short of Breath Respiratory Pattern Tachypnea Blood Pressure 180/120 H 180/120 H Blood Pressure Mean 140 140 Pulse Ox 93 94 Oxygen Delivery Method Room Air 04/25/24 17:34 04/25/24 18:00 Temperature 97.7 F L 97.8 F Temperature Source Oral Oral Pulse Rate 104 H 104 H Respiratory Rate 18 20 H Respiratory Effort Respiratory Pattern Blood Pressure 140/105 H 142/84 H Blood Pressure Mean 116 103 Pulse Ox 93 93 Oxygen Delivery Method Room Air Room Air Weight Weight: 107.955 kg Body Mass Index (BMI) 33.2 Physical Exam Const alert, oriented x3 and no apparent distress Constitutional Narrative: Elderly male, class I obesity, mildly fatigued appearing but otherwise sitting back comfortably in bed, answering questions appropriately, in no acute distress. General Appearance: cooperative and comfortable HEENT normocephalic, head/scalp atraumatic, hearing grossly normal bilaterally, nasal mucous membranes and turbinates normal and moist oral mucous membranes Eyes PERRL, EOMs intact bilaterally and conjunctivae normal Neck full ROM Chest inspection of chest normal Resp normal respiratory effort and no use of accessory muscles Resp Narrative: Breathing comfortably on room air at rest. Significantly diminished breath sounds in right lung from base up to mid lung. Otherwise fairly good breath sounds bilaterally with no wheezing noted. Cardio no murmurs and peripheral pulses 2+ throughout Cardio Narrative: A-fib, rate controlled. GI normal to inspection, nondistended, normoactive bowel sounds, soft to palpation,non-tender and non-distended Back/Spine normal ROM Extremity normal to inspection, full ROM and no pedal edema Skin no rashes or lesions noted Neuro moves all extremities and no focal motor deficits Speech: speech normal Motor Exam: strength 5/5 throughout Psych mental status grossly normal Psych Narrative: Flat affect. Results Lab / Micro Data 04/25/24 17:00 04/25/24 17:00 Labs: Laboratory Results - last 24 hr 04/25/24 17:00: WBC 12.4 H, RBC 5.78, Hgb 14.9, Hct 45.6, MCV 78.9 L, MCH 25.8 L, MCHC 32.7, RDW Std Deviation 45.1 H, RDW Coeff of Flaco 16.2 H, Plt Count 232, MPV 10.1, Immature Gran % (Auto) 0.300, Neut % (Auto) 78.7 H, Lymph % (Auto) 10.4 L, [place] % (Auto) 7.4, Eos % (Auto) 2.8, Baso % (Auto) 0.4, Absolute Neuts (auto) 9.7 H, Absolute Lymphs (auto) 1.29, Nucleated RBC % 0, PT 32.7 H, INR 3.1, Sodium 131 L, Potassium 4.0, Chloride 96 L, Carbon Dioxide 22.0, Anion Gap 13, BUN 18, Creatinine 0.99, Estim Creat Clear Calc 83.06, Est GFR (MDRD) Non-Af80, BUN/Creatinine Ratio 18.5, Glucose 183 H, Calcium 11.2 H, Troponin T High Sens 77 H*, NT pro BNP II 849 Imaging Radiology Impression Chest X-Ray 04/25/24 17:10 IMPRESSION: Cardiomegaly with right basilar opacification, similar in appearance to the prior study, likely representing effusion/atelectasis. Superimposed infection can not be excluded. Reading [facility] Assessment & Plan Assessment/Plan (1) Pleural effusion on right: PLAN: Plan Patient is a 74-year-old male who presented [facility] ED on 04/25/2024 with worsening shortness of breath on exertion and concern for hypoglycemic episodes. 1. Exertional dyspnea presumed secondary to large right-sided pleural effusion ? Admit under patient status to PCU. Chest x-ray on admit showed large right- sided pleural effusion that was stable from recent chest x-ray from 04/07. Unclear etiology for effusion but cannot rule out malignancy in setting of smoking history. CT chest without contrast ordered for further evaluation. Radiology consulted for diagnostic and therapeutic thoracentesis. Given historyof pulmonary hypertension as noted below, will order echocardiogram as well. 2. Type 2 diabetes mellitus with reported episodes of hypoglycemia ?Home regimen of Lantus 35 units at night, glimepiride and metformin. Patient reports episodes of hypoglycemia with blood sugars to the 60s and 70s over the past few days and notably has not been taking his home Lantus. He has been taking the glimepiride. Does report fairly poor p.o. intake over the past several days. Blood sugar 183 in the ED. Will order Accu-Cheks and sliding scale insulin with meals as needed while here. 3. Persistent A-fib on Coumadin ? In rate controlled A-fib on admit. INR 3.1. Continue home warfarin and Lopressor. 4. Mild hyponatremia ? Sodium 131, chloride 96 on admit. Suspect due to poor p.o. intake recently. Will give 1 L of normal saline over several hours on admit. Follow-up a.m. BMP. 5. Elevated troponin ? Troponin 77, repeat pending. No ischemic EKG changes noted and no chest pain reported. Suspect secondary to demand ischemia. Follow-up repeat troponin. 6. Mild hypercalcemia ? Calcium 11.2 on admit. Notably was 11.3 on 04/07. PTH ordered. Pending CT chest, could consider ordering PTHrP as well to further evaluate for possible hypercalcemia of malignancy. Follow-up a.m. calcium level. 7. Mild acute debility ? PT/OT/case management consulted. Chronic medical conditions: ? Class I obesity: BMI 34 on admit. Complicates hospital course, care and prognosis. ? Hypertension: Hypertensive to the 140s on admit. Continue home spironolactoneand Lopressor. ? Hyperlipidemia: Continue home statin. ? Pulmonary hypertension with restrictive airway disease: Previously followed with pulmonology here. Not on home oxygen. Last echo in 11/2021 showed EF 65% with apparent mild pulmonary hypertension. Echo in 2020 showed apparent severe pulmonary hypertension. Repeat echo ordered as above. ? BPH with obstructive symptoms: Continue home Flomax. DVT prophylaxis: Not indicated, on warfarin CODE STATUS: Full code, verified Expected disposition: TBD Total clinical time spent by myself addressing the patient's medical issues, reviewing all the data, and collaborating with patient's care team: 75 minutes. Charges/Coding Visit Charges Inpatient E&M: 47339 Init Hosp L3 04/25/242022 <Electronically signed by Hubert Hastings DO> Cosigner Signature (if applicable): CC: [facility] MUSIC THERAPY SPECIALIST-Matilde Gil; Dr. Hubert Hastings DO~ Signed [facility] Work Phone: 1(848) 562-220503-08-2025 Evaluation note* Diagnosis Onset Date Resolution Status Admit Date Pleural effusion on right acute April 25, 2024 7:00pm [facility] Work Phone: 1(569) 214-580203-08-2025 Evaluation note* Diagnosis Onset Date Resolution Status Admit Date Pleural effusion on right inactive April 25, 2024 7:00pm [facility] Work Phone: 1(525) 219-837203-08-2025 Evaluation note* Diagnosis Onset Date Resolution Status Admit Date Pleural effusion on right inactive April 25, 2024 7:00pm Aortic stenosis acute July 07, 2024 3:01pm Dyspnea acute July 07, 2024 3:01pm Pulmonary hypertension acute Ma y 2024 3:01pm Essential hypertension chronic Ma y 2024 3:01pm Paroxysmal atrial fibrillation chron ic July 07, 2024 3:01pm [facility] Work Phone: 1(226) 961-401503-08-2025 Discharge summary [facility] Medical Records Department [address] [place] [address] Emergency Department Summary 04/25/24 MR#: [id number] Acct: [id number] Name: BLAYNE MORALES Lisa Rep #:[id number] : 1950 74 From: Cindy Mendez DO PCP: Evelia Gil, Matilde, MUSIC THERAPY SPECIALIST-C Statu s:ADM IN Location: [place] [address] HPI History of Present Illness Chief Complaint: Hypoglycemia Detail of Chief Complaint: Low blood sugar and exertional dyspnea Informant: patient Narrative Narrative: Patient presents to the emergency department complaint low blood sugar that started 3 days ago. States he has not taken insulin in the last 3 days. His blood sugar has been dropping into the 70s. Patient also complains of exertional dyspnea. Patient was seen in the emergency department about a month ago and diagnosed with a right pleural effusion but refused admission to have thoracentesis. Patient states that his father had at that time and had a lot going on so he did not want to stay. He denies any chest pain. Denies fever or chills or sweats. He describes frequent urination. [facility] Medical History Cardiac murmur Chronic kidney disease (CKD) Frequent headaches Hyperlipidemia Paroxysmal atrial fibrillation Atrial fibrillation with rapid ventricular response (01/2021) Essential hypertension Severe protein-calorie malnutrition HELENA (acute kidney injury) Abrasion of cornea, right Diabetes Home Medications ?Medication ?Instructions ?Recorded ?Last Taken ?Type pravastatin 20 mg tablet 20 mg PO DAILY 01/26/21 Unkn own History glimepiride 4 mg tablet 4 mg PO DAILY #60 tabs 02/07 Unknown Rx acetaminophen 500 mg capsule 500 mg PO Q6H PRN fever o r pain 11/08/21 Unknown History cyanocobalamin (vitamin B-12) 1,000 mcg PO DAILY 11/08 Unknown History 1,000 mcg capsule ferrous sulfate 325 mg (65 mg 325 mg PO .3 x week 10/20 03/11 Unknown History iron) capsule,extended release spironolactone 25 mg tablet 25 mg PO DAILY 11/08/21 Un known History insulin glargine 100 unit/mL (3 35 unit subcut QPM Unknown History mL) subcutaneous pen (Lantus Solostar U-100 Insulin) cholecalciferol (vitamin D3) 1,250 1,250 mcg PO QWEEK 03/08/22 Unknown History mcg (50,000 unit) capsule metformin 500 mg tablet 500 mg PO DAILY 09/14/22 Unk nown History tamsulosin 0.4 mg capsule (Flomax) 0.4 mg PO DAILY Unknown History metoprolol tartrate 50 mg tablet 50 mg PO BID #180 tab s 01/07/23 Unknown Rx warfarin 4 mg tablet 4 mg PO DAILY #180 tabs 08/19 08/11 Unknown Rx Allergy/AdvReac Type Severity Reaction Status Date / Time amlodipine (From Lotrel) Allergy Severe Other Verified 04/25/24 16:35 benazepril (From Lotrel) Allergy Severe Other Verified 04/25/24 16:35 Surgical History History of cataract surgery Social History Smoking Status: Former smoker ROS ROS ED ROS Narrative Hypoglycemia Review of Systems ROS Unobtainable: other Constitutional Constitutional ED: Reports lethargy; Denies chills, fever(s), sweats or weight loss Eyes Eyes: Denies blurry vision, change in vision or diplopia ENT ENT ED: Denies rhinorrhea or sore throat Cardiovascular Cardiovascular: Denies chest pain, orthopnea or racing heartbeat Respiratory/Chest Respiratory/Chest: Reports cough, dyspnea and dyspnea on exertion; Denies orthopnea or sputum Gastrointestinal Gastrointestinal: Denies abdominal pain, diarrhea, nausea or vomiting Genitourinary Genitourinary ED: Denies dysuria, hematuria or urinary frequency Musculoskeletal Musculoskeletal: Denies arthralgias, back pain, myalgias or neck pain Integumentary Denies abscess, Abrasions or rash Neurologic Neurologic: Denies headache(s) or weakness Psychiatric Psychiatric: Denies anxiety, depression or suicidal thoughts Endocrine Endocrinology: Denies polydipsia, polyphagia or polyuria Hematologic/Lymphatic Hematologic/Lymphatic: Denies easy bleeding, easy bruising or lymphadenopathy Allergic/Immunologic Allergic/Immunologic ED: Denies mouth swelling, tongue swelling or urticaria EXAM Physical Exam Const Vital Signs: 04/25/24 16:30 04/25/24 16:34 04/25/24 16:57 Temperature 97.6 F L 97.6 F L Temperature Source Temporal Temporal Pulse Rate 84 87 Respiratory Rate 17 19 H Respiratory Effort Short of Breath Respiratory Pattern Tachypnea Blood Pressure 180/120 H 180/120 H Blood Pressure Mean 140 140 Pulse Ox 93 94 Oxygen Delivery Method Room Air 04/25/24 17:34 04/25/24 18:00 Temperature 97.7 F L 97.8 F Temperature Source Oral Oral Pulse Rate 104 H 104 H Respiratory Rate 18 20 H Respiratory Effort Respiratory Pattern Blood Pressure 140/105 H 142/84 H Blood Pressure Mean 116 103 Pulse Ox 93 93 Oxygen Delivery Method Room Air Room Air Positive well nourished and well developed General Appearance ED: well developed and NAD HEENT Reports TM's clear and moist mucous membranes normocephalic and atraumatic; Negative for trauma or tenderness Tympanic Membrane ED: Yes TM's clear Eyes PERRL and EOMs intact bilaterally General Eye ED: Negative for pale conjunctiva or scleral icterus Neck no lymphadenopathy, supple and no JVD General: Negative for tenderness Chest Wall inspection of chest normal and palpation of chest normal Chest: Negative for tenderness Resp normal respiratory effort and No clear to auscultation bilaterally Resp Narrative: Decreased breath sounds right lower lobe with few Rales Effort and Inspection: Negative for respiratory distress or pain with movement Auscultation: Negative for rhonchi, wheezes or diminished lung sounds Cardio regular rate, regular rhythm, S1 normal heart sound, S2 normal heart sound and no murmurs Peripheral Pulses: pulses 2+ throughout GI normal to inspection, nondistended, normoactive bowel sounds, soft to palpation,non-tender, non-distended and no masses Back/Spine no CVA tenderness and no thoracic nor lumbar tenderness Extremity normal to inspection General Extremety ED: Negative for edema General Extremity: Negative for edema Neuro oriented x3, CN's II-XII intact bilaterally, no sensory deficits noted and gait normal Sensorium / Orientation: awake, alert, oriented to person, oriented to place andoriented to time Motor Exam: strength 5/5 throughout and strength abnormal Psych mental status grossly normal Skin no rashes or lesions noted and no wounds MDM MDM MDM Narrative Medical decision making narrative: Patient presents with complaints of hypoglycemia for the last 3 days. Complainsof exertional dyspnea with a slight cough. He was seen in March and refused admission at that time as he was noted tohave a right pleural effusion. He hadprior chest x-ray and 2023 that showed a right effusion versus consolidation versus could not rule out mass. He has had no further workup on this. IV line established. EKG obtained on arrival showed atrial fibrillation with ventricular rate of 107 bpm with no acute ST segment changes. CBC with differential shows a white count of 12.4 with hemoglobin 14.9 and platelet countof 232. Chemistries unremarkable. Troponin was elevated at 77. BT MUSIC THERAPY SPECIALIST was 849. Patient states that he has been having some intermittent chest discomfort but not necessarily exertional. Case will be discussed with hospitalist to evaluatepatient for admission Lab Data Attestation: I reviewed the patient's lab results. Labs: Laboratory Results - last 24 hr 04/25/24 17:00 WBC 12.4 H RBC 5.78 Hgb 14.9 Hct 45.6 MCV 78.9 L MCH 25.8 L MCHC 32.7 RDW Std Deviation 45.1 H RDW Coeff of Flaco 16.2 H Plt Count 232 MPV 10.1 Immature Gran % (Auto) 0.300 Neut % (Auto) 78.7 H Lymph % (Auto) 10.4 L [place] % (Auto) 7.4 Eos % (Auto) 2.8 Baso % (Auto) 0.4 Absolute Neuts (auto) 9.7 H Absolute Lymphs (auto) 1.29 Nucleated RBC % 0 PT 32.7 H INR 3.1 Sodium 131 L Potassium 4.0 Chloride 96 L Carbon Dioxide 22.0 Anion Gap 13 BUN 18 Creatinine 0.99 Estim Creat Clear Calc 83.06 Est GFR (MDRD) Non-Af 80 BUN/Creatinine Ratio 18.5 Glucose 183 H Calcium 11.2 H Troponin T High Sens 77 H* NT pro BNP II 849 Radiography Diagnostic Testing: Clinical Impression(s) from Imaging Studies Chest X-Ray 04/25/24 17:10 IMPRESSION: Cardiomegaly with right basilar opacification, similar in appearance to the prior study, likely representing effusion/atelectasis. Superimposed infection can not be excluded. Reading [facility] view chest x-ray obtained interpreted by myself as right pleural effusion versus possible mass with effusion. Radiology in agreement. EKG Initial EKG: Attestation: I personally reviewed and interpreted this EKG as follows: Comments: Atrial fibrillation with ventricular rate of 107 bpm with no acute ST segment changes Discharge Plan Triage Chief Complaint: Hypoglycemia ED Provider: Cindy Mendez Dx/Rx/DC Orders Clinical Impression: Acute dyspnea, Elevated troponin, Non-ST elevation AL (NSTEMI), Pleural effusion on right Prescriptions: No Action cyanocobalamin (vitamin B-12) 1,000 mcg capsule 1,000 mcg PO DAILY spironolactone 25 mg tablet 25 mg PO DAILY acetaminophen 500 mg capsule 500 mg PO Q6H PRN (Reason: fever or pain) Lantus Solostar U-100 Insulin 100 unit/mL (3 mL) insulin pen 35 unit subcut QPM cholecalciferol (vitamin D3) 1,250 mcg (50,000 unit) capsule 1,250 mcg PO QWEEK metformin 500 mg tablet 500 mg PO DAILY tamsulosin [Flomax] 0.4 mg capsule 0.4 mg PO DAILY warfarin 4 mg tablet 4 mg PO DAILY Qty: 180 3RF Protocol: Dose Management Condition: Saturday Dose/Route: 4 mg Instruction: 1 x 4 mg tablet Condition: Saturday Dose/Route: 4 mg Instruction: 1 x 4 mg tablet Condition: Saturday Dose/Route: 4 mg Instruction: 1 x 4 mg tablet Condition: Saturday Dose/Route: 4 mg Instruction: 1 x 4 mg tablet Condition: Dose/Route: 4 mg Instruction: 1 x 4 mg tablet Condition: Saturday Dose/Route: 4 mg Instruction: 1 x 4 mg tablet Condition: Saturday Dose/Route: 4 mg Instruction: 1 x 4 mg tablet Protocol Text: Adjustment Start Date: Saturday01/07/24 INR Value: 1.9 INR Date: 01/07/24 Recheck Date: 01/21/24 Rx Instructions: 1 tablet 4 days a week and 1.5 tablets 3 days a week or as directed pravastatin 20 mg tablet 20 mg PO DAILY glimepiride 4 mg tablet 4 mg PO DAILY Qty: 60 0RF ferrous sulfate 325 mg (65 mg iron) capsule, extended release 325 mg PO .3 x week metoprolol tartrate 50 mg tablet 50 mg PO BID Qty: 180 3RF Primary Care Provider: Evelia Gil Referrals: Evelia Gil, MUSIC THERAPY SPECIALIST-C [Primary Care Provider] - Print Language: Croatian Disposition Disposition: Acute Care Hospital [facility] What to do if you have Problems For any increased pain, shortness of breath, bleeding, nausea or vomiting, chestpain, or any unexpected problems, contact your Primary Care Provider. Call [facility] ([phone]) or report tothe closest Emergency Room. Call 911 if necessary. 04/25/242056 Cosigner Signature (if applicable): CC: Matilde MUSIC THERAPY SPECIALIST-C Evelia Gil ~ Signed [facility]03-08-2025 Radiology Diagnostic study note [facility] Imaging Services [address] [place], [place] [address] Chest without Contrast MR#: [id number] Acct: [id number] Name: BLAYNE MORALES Rep #: [id number] : 1950 M 74 From: Marcos Rodriguez DO PCP: VIKRAM Bower, MUSIC THERAPY SPECIALIST-C Status: ADM IN Study:Chest without Contrast Date of Exam: 04/25/24 Exam# [id number] Ordering Dr: Hubert Rodriguez DO PROCEDURE: CHEST WITHOUT CONTRAST REASON FOR EXAM: Right pleural effusion TECHNIQUE: Chest CT without contrast. COMPARISON: Chest radiograph obtained earlier today. FINDINGS: Hardware: None. Lymph nodes: Prominent mediastinal lymph nodes Heart and Vasculature: Normal heart size. No pericardial effusion. Thoracic aorta and pulmonary arteries have normal contours; noncontrast technique limits evaluation. Coronary Artery Calcifications: Present Lungs and Airways: Compressive atelectasis of the right middle and right lower lobe. Pleura: Large right pleural effusion. No pneumothorax. Upper Abdomen: Visualized portions of the upper abdominal viscera are unremarkable. Bones: Degenerative changes of the thoracic spine. CT/Chest without Contrast IMPRESSION: Large right pleural effusion with compressive atelectasis. One or more dose reduction techniques were used (e.g., Automated exposure control, adjustment of the mA and/or kV according to patient size, use of iterative reconstruction technique). Reading Location: [facility] CC: VIKRAM MUSIC THERAPY SPECIALIST-C Evelia Gil; Dr. Hubert Hastings DO ~ Secretary Bookkeeper: Signed [facility]03-08-2025 History and physical note [facility] Medical Records Department [address] [place] [address] H&P Exam - Hospitalist 04/25/24 1831 MR#: [id number] Acct: [id number] Name: BLAYNE MORALES Rep #:[id number] : 1950 74 From: Hubert Felizlisa valero DO PCP: VIKRAM Bower, MUSIC THERAPY SPECIALIST-C Statu s:ADM IN Location: [place] [id number]- 1 HPI - General General Date of Admission: 04/25/24 Date of Service: 04/25/24 Chief Complaint: Worsening shortness of breath with exertion and concern for hypoglycemic episodes HPI Narrative BLAYNE MORALES, is a 74 M who presented to [facility] ED on 04/25/2024 with worseningshortness of breath with exertion and concern for hypoglycemic episodes. Patient was seen in the ERhere on 04/07 for similar concern. Was found on chest x-ray to have cardiomegaly with a large right-s idedpleural effusion. Admission was recommended but patient opted to leave AGAINST MEDICAL ADVICE. Noted that his father had just and he was dealing with several things at home. He returned to the ED today with continued shortness of breath with exertion. He also has had reported intermittent episodes of hypoglycemia. He is on Lantus 35 units at night, glimepiride and metformin for diabetes but states that he has not taken his insulin now for several days. States that he has had some blood sugar checks in the 60s to 70s which he notes is low for him, and he had hypoglycemic symptoms with this. In the ED today patient was hypertensive to the 140s systolic and mildly tachycardic. He was breathing comfortably on room air at rest with saturations in the low to mid 90s. Chest x-rayappeared essentially the same as chest x-harsha 04/07. Labs notable for WBC count 12, sodium 131, chloride 96, calcium 11.2. BNP was in the high normal range. Initial troponin was elevated at 77, repeat pending. Notably no ischemic changes were noted on EKG. Patient is a former smoker, quit smoking back in 2005. Given all of these findings, hospitalist wascontacted for admission. I saw the patient at bedside in the ED, friend was present. Patient was mildly fatigued appearing but otherwise sitting back comfortably in bed. Patient did answer questions appropriately but was very deliberate with his speech and conversation did take some time. He lives at home alone and reportsgood functional status at baseline. Denies any recent weight loss. Denies any fevers or chills. Denies any chest pain currently or any recent chest pain episodes. Reports taking home medications as prescribed aside from the long-acting insulin that he is held. No other acute concerns at this time. [facility] Medical History Cardiac murmur Chronic kidney disease (CKD) Frequent headaches Hyperlipidemia Paroxysmal atrial fibrillation Atrial fibrillation with rapid ventricular response (01/2021) Essential hypertension Severe protein-calorie malnutrition HELENA (acute kidney injury) Abrasion of cornea, right Diabetes Home Medications ?Medication ?Instructions ?Recorded ?Last Taken ?Type pravastatin 20 mg tablet 20 mg PO DAILY 01/26/21 Unkn own History glimepiride 4 mg tablet 4 mg PO DAILY #60 tabs 02/07 Unknown Rx acetaminophen 500 mg capsule 500 mg PO Q6H PRN fever o r pain 11/08/21 Unknown History cyanocobalamin (vitamin B-12) 1,000 mcg PO DAILY 11/08 Unknown History 1,000 mcg capsule ferrous sulfate 325 mg (65 mg 325 mg PO .3 x week 10/20 03/11 Unknown History iron) capsule,extended release spironolactone 25 mg tablet 25 mg PO DAILY 11/08/21 Un known History insulin glargine 100 unit/mL (3 35 unit subcut QPM Unknown History mL) subcutaneous pen (Lantus Solostar U-100 Insulin) cholecalciferol (vitamin D3) 1,250 1,250 mcg PO QWEEK 03/08/22 Unknown History mcg (50,000 unit) capsule metformin 500 mg tablet 500 mg PO DAILY 09/14/22 Unk nown History tamsulosin 0.4 mg capsule (Flomax) 0.4 mg PO DAILY Unknown History metoprolol tartrate 50 mg tablet 50 mg PO BID #180 tab s 01/07/23 Unknown Rx warfarin 4 mg tablet 4 mg PO DAILY #180 tabs 08/19 08/11 Unknown Rx Allergy/AdvReac Type Severity Reaction Status Date / Time amlodipine (From Lotrel) Allergy Severe Other Verified 04/25/24 16:35 benazepril (From Lotrel) Allergy Severe Other Verified 04/25/24 16:35 Surgical History History of cataract surgery Social History Smoking Status: Former smoker ROS Constitutional Constitutional: Reports fatigue; Denies chills, fever(s) or weakness Eyes Eyes: Denies change in vision Cardiovascular Cardiovascular: Reports dyspnea on exertion; Denies chest pain, edema or lightheadedness Respiratory/Chest Respiratory/Chest: Reports cough and shortness of breath with exertion; Denies productive cough, shortness of breath at rest or wheezing Gastrointestinal Gastrointestinal: Denies abdominal pain Genitourinary Genitourinary: Denies dysuria Musculoskeletal Musculoskeletal: Denies arthralgias or myalgias Vital Signs Vital Signs Vital Signs: 04/25/24 16:30 04/25/24 16:34 04/25/24 16:57 Temperature 97.6 F L 97.6 F L Temperature Source Temporal Temporal Pulse Rate 84 87 Respiratory Rate 17 19 H Respiratory Effort Short of Breath Respiratory Pattern Tachypnea Blood Pressure 180/120 H 180/120 H Blood Pressure Mean 140 140 Pulse Ox 93 94 Oxygen Delivery Method Room Air 04/25/24 17:34 04/25/24 18:00 Temperature 97.7 F L 97.8 F Temperature Source Oral Oral Pulse Rate 104 H 104 H Respiratory Rate 18 20 H Respiratory Effort Respiratory Pattern Blood Pressure 140/105 H 142/84 H Blood Pressure Mean 116 103 Pulse Ox 93 93 Oxygen Delivery Method Room Air Room Air Weight Weight: 107.955 kg Body Mass Index (BMI) 33.2 Physical Exam Const alert, oriented x3 and no apparent distress Constitutional Narrative: Elderly male, class I obesity, mildly fatigued appearing but otherwise sitting back comfortably in bed, answering questions appropriately, in no acute distress. General Appearance: cooperative and comfortable HEENT normocephalic, head/scalp atraumatic, hearing grossly normal bilaterally, nasal mucous membranes and turbinates normal and moist oral mucous membranes Eyes PERRL, EOMs intact bilaterally and conjunctivae normal Neck full ROM Chest inspection of chest normal Resp normal respiratory effort and no use of accessory muscles Resp Narrative: Breathing comfortably on room air at rest. Significantly diminished breath sounds in right lung from base up to mid lung. Otherwise fairly good breath sounds bilaterally with no wheezing noted. Cardio no murmurs and peripheral pulses 2+ throughout Cardio Narrative: A-fib, rate controlled. GI normal to inspection, nondistended, normoactive bowel sounds, soft to palpation,non-tender and non-distended Back/Spine normal ROM Extremity normal to inspection, full ROM and no pedal edema Skin no rashes or lesions noted Neuro moves all extremities and no focal motor deficits Speech: speech normal Motor Exam: strength 5/5 throughout Psych mental status grossly normal Psych Narrative: Flat affect. Results Lab / Micro Data 04/25/24 17:00 04/25/24 17:00 Labs: Laboratory Results - last 24 hr 04/25/24 17:00: WBC 12.4 H, RBC 5.78, Hgb 14.9, Hct 45.6, MCV 78.9 L, MCH 25.8 L, MCHC 32.7, RDW Std Deviation 45.1 H, RDW Coeff of Flaco 16.2 H, Plt Count 232, MPV 10.1, Immature Gran % (Auto) 0.300, Neut % (Auto) 78.7 H, Lymph % (Auto) 10.4 L, [place] % (Auto) 7.4, Eos % (Auto) 2.8, Baso % (Auto) 0.4,Absolute Neuts (auto) 9.7 H, Absolute Lymphs (auto) 1.29, Nucleated RBC % 0, PT 32.7 H, INR 3.1, Sodium 131 L, Potassium 4.0, Chloride 96 L, Carbon Dioxide 22.0, Anion Gap 13, BUN 18, Creatinine 0.99, Estim Creat Clear Calc 83.06, Est GFR (MDRD) Non- Af80, BUN/Creatinine Ratio 18.5, Glucose 183 H, Calcium 11.2 H, Troponin T High Sens 77 H*, NT pro BNP II 849 Imaging Radiology Impression Chest X-Ray 04/25/24 17:10 IMPRESSION: Cardiomegaly with right basilar opacification, similar in appearance to the prior study, likely representing effusion/atelectasis. Superimposed infection can not be excluded. [facility] & Plan Assessment/Plan (1) Pleural effusion on right: PLAN: Plan Patient is a 74-year-old male who presented [facility] ED on 04/25/2024 with worsening shortness of breath on exertion and concern for hypoglycemic episodes. 1. Exertional dyspnea presumed secondary to large right-sided pleural effusion ? Admit under patient status to PCU. Chest x-ray on admit showed large right- sided pleural effusionthat was stable from recent chest x-ray from 04/07. Unclear etiology for effusion but cannot rule out malignancy in setting of smoking history. CT chest without contrast ordered for further evaluation. Radiology consulted for diagnostic and therapeutic thoracentesis. Given historyof pulmonary hypertension as noted below, will order echocardiogram as well. 2. Type 2 diabetes mellitus with reported episodes of hypoglycemia ?Home regimen of Lantus 35 units at night, glimepiride and metformin. Patient reports episodes of hypoglycemia with blood sugars to the 60s and 70s over the past few days and notably has not been taking his home Lantus. He has been taking the glimepiride. Does report fairly poor p.o. intake over the past several days. Blood sugar 183 in the ED. Will order Accu-Cheks and sliding scale insulin withmeals as needed while here. 3. Persistent A-fib on Coumadin ? In rate controlled A-fib on admit. INR 3.1. Continue home warfarin and Lopressor. 4. Mild hyponatremia ? Sodium 131, chloride 96 on admit. Suspect due to poor p.o. intake recently. Will give 1 L of normal saline over several hours on admit. Follow-up a.m. BMP. 5. Elevated troponin ? Troponin 77, repeat pending. No ischemic EKG changes noted and no chest pain reported. Suspect secondary to demand ischemia. Follow-up repeat troponin. 6. Mild hypercalcemia ? Calcium 11.2 on admit. Notably was 11.3 on 04/07. PTH ordered. Pending CT chest, could consider ordering PTHrP as well to further evaluate for possible hypercalcemia of malignancy. Follow-up a.m. calcium level. 7. Mild acute debility ? PT/OT/case management consulted. Chronic medical conditions: ? Class I obesity: BMI 34 on admit. Complicates hospital course, care and prognosis. ? Hypertension: Hypertensive to the 140s on admit. Continue home spironolactoneand Lopressor. ? Hyperlipidemia: Continue home statin. ? Pulmonary hypertension with restrictive airway disease: Previously followed with pulmonology here. Not on home oxygen. Last echo in 11/2021 showed EF 65% with apparent mild pulmonary hypertension. Echo in 2020 showed apparent severe pulmonary hypertension. Repeat echo ordered as above. ? BPH with obstructive symptoms: Continue home Flomax. DVT prophylaxis: Not indicated, on warfarin CODE STATUS: Full code, verified Expected disposition: TBD Total clinical time spent by myself addressing the patient's medical issues, reviewing all the data, and collaborating with patient's care team: 75 minutes. Charges/Coding Visit Charges Inpatient E&M: 88884 Init Hosp L3 04/25/242022 Cosigner Signature (if applicable): CC: VIKRAM MUSIC THERAPY SPECIALIST-C Evelia Gil; Dr. Hubert Hastings DO~ Signed [facility]03-08-2025 Radiology Diagnostic study note [facility] Imaging Services [address], [place] [id number] Chest 1 View (Portable) MR#: [id number] Acct: [id number] Name: BLAYNE MORALES Rep #: [id number] : 1950 M 74 From: Marcos Rodriguez DO PCP: VIKRAM Bower, MUSIC THERAPY SPECIALIST-C Status: REG ER Study:Chest 1 View (Portable) Date of Exam: 04/25/24 Exam# [id number] Ordering Dr: Monica Mendez DO PROCEDURE: CHEST 1 VIEW (PORTABLE) REASON FOR EXAM: Dyspnea TECHNIQUE: Frontal view of the chest. COMPARISON: Chest radiograph dated 04/07/2024 FINDINGS: Heart size is moderately enlarged. Right basilar opacification, no pneumothorax. The bones are unremarkable. RAD/Chest 1 View (Portable) IMPRESSION: Cardiomegaly with right basilar opacification, similar in appearance to the prior study, likely representing effusion/atelectasis. Superimposed infection can not be excluded. Reading Location: [facility] CC: [facility] MUSIC THERAPY SPECIALIST-C Evelia Gil; Dr. Cindy Mendez DO ~ Secretary Bookkeeper: Signed [facility]03-08-2025 Radiology Diagnostic study note [facility] Imaging Services [address] [place] [address] Chest 1 View (Portable) MR#: [id number] Acct: [id number] Name: BLAYNE MORALES Rep #: [id number] : 1950 M 74 From: Marcos Rodriguez DO PCP: VIKRAM Bower, MUSIC THERAPY SPECIALIST-C Status: REG ER Study:Chest 1 View (Portable) Date of Exam: 04/25/24 Exam# [id number] Ordering Dr: Monica Mendez DO PROCEDURE: CHEST 1 VIEW (PORTABLE) REASON FOR EXAM: Dyspnea TECHNIQUE: Frontal view of the chest. COMPARISON: Chest radiograph dated 04/07/2024 FINDINGS: Heart size is moderately enlarged. Right basilar opacification, no pneumothorax. The bones are unremarkable. RAD/Chest 1 View (Portable) IMPRESSION: Cardiomegaly with right basilar opacification, similar in appearance to the prior study, likely representing effusion/atelectasis. Superimposed infection can not be excluded. Reading Location: [place] CC: [facility] MUSIC THERAPY SPECIALIST-C Evelia Gil; Dr. Cindy Mendez DO ~ Secretary Bookkeeper: Signed [facility] Author Samuel Deleon [facility] Note Date/Time April 28, 2024 2:2 7pm [facility] Medical Records Department [address] [place] [address] Counseling Note - Pharmacy 04/28/24 1348 MR#: [id number] Acct: [id number] Name: BLAYNE MORALES Rep #:[id number] : 1950 74 From: Samuel Deleon PCP: VIKRAM Bower, MUSIC THERAPY SPECIALIST-C Statu s:ADM IN Y Location: [facility] [id number] Pharmacy [facility] has performed discharge medication reconciliation and counseling for this patient. The patient's discharge medication list was reviewed for discrepancies and discrepancies were resolved. The patient was counseled on the following discharge medications and changes in medications for homegoing were reviewed. The Reason for Use, instructions for use, and potential side effects were reviewed for all new medications. The patient's questions regarding all of their medications were answered. 1. Furosemide 40 mg PO daily The patient was able to verbally demonstrate an understanding of their dischargemedications. Medications at Discharge Home Medications pravastatin 20 mg tablet 20 mg PO DAILY 01/26/21 glimepiride 4 mg tablet 4 mg PO DAILY #60 tabs 02/07/21 acetaminophen 500 mg capsule 500 mg PO Q6H PRN fever or pain 11/08/21 cyanocobalamin (vitamin B-12) 1,000 mcg capsule 1,000 mcg PO DAILY 11/08/21 ferrous sulfate 325 mg (65 mg iron) capsule,extended release 325 mg PO .3 x week11/08/21 spironolactone 25 mg tablet 25 mg PO DAILY 11/08/21 insulin glargine 100 unit/mL (3 mL) subcutaneous pen (Lantus Solostar U-100 Insulin) 35 unit subcut QPM 01/09/22 cholecalciferol (vitamin D3) 1,250 mcg (50,000 unit) capsule 1,250 mcg PO QWEEK 03/08/22 metformin 500 mg tablet 500 mg PO DAILY 09/14/22 tamsulosin 0.4 mg capsule (Flomax) 0.4 mg PO DAILY 09/14/22 metoprolol tartrate 50 mg tablet 50 mg PO BID #180 tabs 01/07/23 warfarin 4 mg tablet 4 mg PO SUMOTUWETHSA 04/25/24 warfarin 6 mg tablet (Jantoven) 6 mg PO FR blood 04/25/24 furosemide 40 mg tablet (Lasix) 40 mg PO DAILY #30 tabs 04/28/24 04/28/24 1348 <Electronically signed by Samuel baig> Date _ Samuel [place]inas Signature (if applicable): Date CC: ~ Signed [facility] Work Phone: Discharge summary Author Luis Nieto [facility] Note Date/Time April 28, 2024 12: 48pm [facility] Medical Records Department [address] [place] [address] Instructions for Home/Discharge Instructions 04/28/24 1234 MR#: [id number] Acct: [id number] Name: BLAYNE MORALES Rep #:[id number] : 1950 74 From: Luis Nieto DO PCP: VIKRAM Bower, MUSIC THERAPY SPECIALIST-C Statu s:ADM IN Discharge Instructions Diet Discharge Diet: 1800 Calorie Control Diet DC O2, CPAP, BIPAP needs Home O2 Discharge instructions: No Dressing / Incision Discharge Activity: Return to Normal Activity Weight Bearing Status: Full weight bearing Follow Up Care Test Results: Test results from this visit will be discussed in further detail at your follow- up appointment, if applicable. Discharge Plan Admission Admit Date/Time: 04/25/24 19:00 Primary Reason for Your Visit: Right pleural effusion, hypoxia, congestive heartfailure Attending Provider: Luis Nieto Primary Care Provider: Evelia Gil Consulting Providers: Hubert Hastings; Nba Seth Instructions Patient Instructions: RAD RN Thoracentesis Dc Discharge Orders/Prescriptions Prescriptions: New furosemide [Lasix] 40 mg tablet 40 mg PO DAILY Qty: 30 0RF Continued cyanocobalamin (vitamin B-12) 1,000 mcg capsule 1,000 mcg PO DAILY spironolactone 25 mg tablet 25 mg PO DAILY acetaminophen 500 mg capsule 500 mg PO Q6H PRN (Reason: fever or pain) Lantus Solostar U-100 Insulin 100 unit/mL (3 mL) insulin pen 35 unit subcut QPM cholecalciferol (vitamin D3) 1,250 mcg (50,000 unit) capsule 1,250 mcg PO QWEEK metformin 500 mg tablet 500 mg PO DAILY tamsulosin [Flomax] 0.4 mg capsule 0.4 mg PO DAILY pravastatin 20 mg tablet 20 mg PO DAILY glimepiride 4 mg tablet 4 mg PO DAILY Qty: 60 0RF ferrous sulfate 325 mg (65 mg iron) capsule, extended release 325 mg PO .3 x week warfarin [Jantoven] 6 mg tablet 6 mg PO FR warfarin 4 mg tablet 4 mg PO SUMOTUWETHSA Protocol: Dose Management Condition: Saturday Dose/Route: 4 mg Instruction: 1 x 4 mg tablet Condition: Saturday Dose/Route: 4 mg Instruction: 1 x 4 mg tablet Condition: Saturday Dose/Route: 4 mg Instruction: 1 x 4 mg tablet Condition: Saturday Dose/Route: 4 mg Instruction: 1 x 4 mg tablet Condition: Dose/Route: 4 mg Instruction: 1 x 4 mg tablet Condition: Saturday Dose/Route: 4 mg Instruction: 1 x 4 mg tablet Condition: Saturday Dose/Route: 4 mg Instruction: 1 x 4 mg tablet Protocol Text: Adjustment Start Date: Saturday01/07/24 INR Value: 1.9 INR Date: 01/07/24 Recheck Date: 01/21/24 Rx Instructions: 1 tablet 4 days a week and 1.5 tablets 3 days a week or as directed metoprolol tartrate 50 mg tablet 50 mg PO BID Qty: 180 3RF Referrals / Follow Up: Evelia Gil, MUSIC THERAPY SPECIALIST-C [Primary Care Provider] - Within 1 Week (Call to confirm appointment) Disposition Disposition (needs filled in before D/C Order can be placed): Home, Self Care 04/28/24 1248<Electronically signed by Luis Nieto DO>Luis Nieto DO CC: VIKRAM MUSIC THERAPY SPECIALIST-C Evelia Gil; Dr. Hubert Hastings DO; Dr. Nba Seth MD ~ Signed [facility] Work Phone: Evaluation noteNo assessment information available [facility] Work Phone: evaluation note* Diagnosis Onset Date Resolution Status Essential hypertension acute Pulmonary hypertension acute Paroxysmal atrial fibrillation [facility] Work Phone: Evaluation note* Diagnosis Onset Date Resolution Status Essential hypertension acute Pulmonary hypertension acute Paroxysmal atrial fibrillation chronic Essential hypertension acute Pulmonary hypertension acute Paroxysmal atrial fibrillation [facility] Work Phone: Evaluation note* Diagnosis Onset Date Resolution Status Obesity acute Pulmonary hypertension acute Restrictive airway disease a cute [facility] Work Phone: Evaluation note* Diagnosis Onset Date Resolution Status Abnormal CXR acute Essential hypertension acute Paroxysmal atrial fibrillation [facility] Work Phone: Reason for referral (narrative)No reason for referral information [facility] Work Phone: Chief Complaint and Reason for Visit Chief Complaint Cardiac arrhythmia, unspecified Chief Complaint Cardiac arrhythmia, unspecified 2 ordering doctors Chief Complaint Abnormal EKG AFIB Reason for Visit Essential hypertensi on Pulmonary hypertension Paroxysmal atrial fibrillation Chief Complaint Abnormal EKG AFIB S/O INR-FINGERSTICK Reason for Visit Essential hypertensi on Pulmonary hypertension Paroxysmal atrial fibrillation Chief Complaint Abnormal EKG AFIB S/O INR-FINGERSTICK 2 M FU S/O INR-FINGERSTICK DYSPNEA DYSPNEA DYSPNEA S/O INR-FINGERSTICK DYSPNEA Reason for Visit Essential hypertensi on Pulmonary hypertension Paroxysmal atrial fibrillation Essential hypertension Pulmonary hypertension Paroxysmal atrial fibrillation Chief Complaint Abnormal PFT S/O INR-FINGERSTICK Reason for Visit Obesity Pulmonary hypertension Restrictive airway disease Chief Complaint S/O INR-FINGERSTICK 6 M FU S/O INR-FINGERSTICK Reason for Visit Abnormal CXR Essential hypertension Paroxysmal atrial fibrillation Chief Complaint 6 M FU S/O INR-FINGERSTICK S/O INR-FINGERSTICK Reason for Visit Abnormal CXR Essential hypertension Paroxysmal atrial fibrillation Chief Complaint Admit Date PT INR January 07, 2024 10:07am sob April 07, 2024 3:40pm R PLEURAL EFFUSION WITH DYSPNEAON EXERTI ON April 25, 2024 7:00pm Chief Complaint Admit Date PT INR January 07, 2024 10:07am sob April 07, 2024 3:40pm R PLEURAL EFFUSION WITH DYSPNEAON EXERTI ON April 25, 2024 7:00pm R PLEURAL EFFUSION WITH DYSPNEAON EXERTI ON April 26, 2024 8:14am Reason for Visit Admit Date Pleural effusion on right April 25 7:00pm Chief Complaint Admit Date sob April 07, 2024 3:40pm R PLEURAL EFFUSION WITH DYSPNEAON EXERTI ON April 25, 2024 7:00pm R PLEURAL EFFUSION WITH DYSPNEAON EXERTI ON April 26, 2024 8:14am R PLEURAL EFFUSION WITH DYSPNEAON EXERTI ON April 27, 2024 7:45pm R PLEURAL EFFUSION WITH DYSPNEAON EXERTI ON April 28, 2024 12:48pm Chief Complaint Admit Date sob April 07, 2024 3:40pm R PLEURAL EFFUSION WITH DYSPNEAON EXERTI ON April 25, 2024 7:00pm R PLEURAL EFFUSION WITH DYSPNEAON EXERTI ON April 26, 2024 8:14am R PLEURAL EFFUSION WITH DYSPNEAON EXERTI ON April 27, 2024 7:45pm RT PLEURAL EFFUSION April 28, 2024 8:0 0am R PLEURAL EFFUSION WITH DYSPNEAON EXERTI ON April 28, 2024 12:48pm PER SUNITA FOLEYKylieMAN July 07, 2024 3:01p m Chief Complaint Admit Date sob April 07, 2024 3:40pm R PLEURAL EFFUSION WITH DYSPNEAON EXERTI ON April 25, 2024 7:00pm R PLEURAL EFFUSION WITH DYSPNEAON EXERTI ON April 26, 2024 8:14am R PLEURAL EFFUSION WITH DYSPNEAON EXERTI ON April 27, 2024 7:45pm RT PLEURAL EFFUSION April 28, 2024 8:0 0am R PLEURAL EFFUSION WITH DYSPNEAON EXERTI ON April 28, 2024 12:48pm PER SUNITA FOLEYCHINA July 07, 2024 3:01p m PT INR July 07, 2024 4:00p m Reason for Visit Admit Date Pleural effusion on right April 25 7:00pm Aortic stenosis July 07, 2024 3:01p m Dyspnea July 07, 2024 3:01p m Pulmonary hypertension July 07, 2024 3: 01pm Essential hypertension July 07, 2024 3: 01pm Paroxysmal atrial fibrillation July 07, 2024 3:01pm Chief Complaint Admit Date PER SUNITA FOLEYKylieREDDICK July 07, 2024 3:01p m PT INR July 07, 2024 4:00p m PT INR September 09, 2024 10:1 1am 1 Y FU September 11, 2024 1:44 pm Reason for Visit Admit Date Aortic stenosis July 07, 2024 3:01p m Dyspnea July 07, 2024 3:01p m Pulmonary hypertension July 07, 2024 3: 01pm Essential hypertension July 07, 2024 3: 01pm Paroxysmal atrial fibrillation July 07, 2024 3:01pm Aortic stenosis September 11, 2024 1:44 pm Pleural effusion on right September 11 1:44pm Pulmonary hypertension September 11, 2024 1 :44pm Essential hypertension September 11, 2024 1 :44pm Paroxysmal atrial fibrillation August 1:44pm Chief Complaint Admit Date PER SUNITA FOLEYKylieREDDICK July 07, 2024 3:01p m PT INR July 07, 2024 4:00p m PT INR September 09, 2024 10:1 1am 1 Y FU September 11, 2024 1:44 pm E-ORDER September 11, 2024 2:52 pm Chief Complaint Admit Date PT INR September 09, 2024 10:1 1am 1 Y FU September 11, 2024 1:44 pm E-ORDER September 11, 2024 2:52 pm PT INR November 25, 2024 1: 17pm 3 M FU November 25, 2024 1: 32pm Reason for Visit Admit Date Aortic stenosis September 11, 2024 1:44 pm Pleural effusion on right September 11 1:44pm Pulmonary hypertension September 11, 2024 1 :44pm Essential hypertension September 11, 2024 1 :44pm Paroxysmal atrial fibrillation August 1:44pm Aortic stenosis November 25, 2024 1: 32pm Pleural effusion on right November 25, 1:32pm Pulmonary hypertension November 25, 2024 1:32pm Essential hypertension November 25, 2024 1:32pm Paroxysmal atrial fibrillation November 252024 1:32pm Advance Directives No Advanced Directives Records Found Advance Directive Response Recorded Date/ Time Living Will No January 27 8:33am Power of Special Delivery Mail Carrier No January 27, 2021 8:33am Advance Directive Response Recorded Date/ Time Living Will No January 27 021 7:33am Power of Special Delivery Mail Carrier No January 27, 2021 7:33am Advance Directive Response Recorded Date/ Time Living Will Yes April 25, 2024 4:46pm Power of Special Delivery Mail Carrier Yes April 25 4:46pm Name of Medical Power of Special Delivery Mail Carrier Blayne Morales Jr April 25, 2024 4:46pm Living Will No January 27 021 7:33am Power of Special Delivery Mail Carrier No January 27, 2021 7:33am Living Will No April 07 025 4:13pm Power of Special Delivery Mail Carrier No April 07, 2024 4:13pm Advance Directive Response Recorded Date/ Time Living Will Yes April 25, 2024 8:53pm Power of Special Delivery Mail Carrier Yes April 25 8:53pm Name of Medical Power of Special Delivery Mail Carrier Blayne Morales Jr April 25, 2024 8:53pm Living Will No January 27 021 8:33am Power of Special Delivery Mail Carrier No January 27, 2021 8:33am Living Will No April 07, 025 5:13pm Power of Special Delivery Mail Carrier No April 07, 2024 5:13pm Advance Directive Response Recorded Date/ Time Living Will Yes April 25, 2024 8:53pm Do you have a Healthcare Pow er of Special Delivery Mail Carrier? Yes April 25, 2024 8:53pm Name of Medical Power of Special Delivery Mail Carrier Blayne Morales Jr April 25, 2024 8:53pm Living Will No April 07 025 5:13pm Do you have a Healthcare Pow er of Special Delivery Mail Carrier? No April 07, 2024 5:13pm Advance Directive Response Recorded Date/ Time Living Will Yes April 25, 2024 8:53pm Do you have a Healthcare Pow er of Special Delivery Mail Carrier? Yes April 25, 2024 8:53pm Name of Medical Power of Special Delivery Mail Carrier Blayne Morales Jr April 25, 2024 8:53pm Living Will No January 18 2:40am Do you have a Healthcare Pow er of Special Delivery Mail Carrier? No January 19, 2024 2:40am Living Will No April 07 025 5:13pm Do you have a Healthcare Pow er of Special Delivery Mail Carrier? No April 07, 2024 5:13pm Advance Directive Response Recorded Date/ Time Living Will No January 27 021 8:33am Do you have a Healthcare Power of Special Delivery Mail Carrier? No January 27, 2021 8:33am Living Will No July 19, 2024 4 :41am Do you have a Healthcare Power of Special Delivery Mail Carrier? No July 19, 2024 4:41am Living Will No January 18 2:40am Do you have a Healthcare Power of Special Delivery Mail Carrier? No January 19, 2024 2:40am Advance Directive Response Recorded Date/ Time Living Will No January 27 021 8:33am Do you have a Healthcare Power of Special Delivery Mail Carrier? No January 27, 2021 8:33am Living Will No July 19, 2024 4 :41am Do you have a Healthcare Power of Special Delivery Mail Carrier? No July 19, 2024 4:41am Summary Purpose Family History No Family History Records Found Additional Source Comments Goals (unrecognized section and content) Goals may be documented in a n alternate sectionGoals may be documented in an alternate sectionGoals may be documented in an alternate sectionGoals may be documented in an alternate sectionGoals may be documented in an alternate sectionGoals may be documented in an alternate sectionGoals may be documented in an alternate sectionGoals may be documented in an alternate sectionGoals may be documented in an alternate sectionGoals may be documented in an alternate sectionGoals may be documented in an alternate sectionGoals may be documented in an alternate sectionGoals may be documented in an alternate sectionGoals may be documented in an alternate section Care Teams (unrecognized sec tion and content) Team Status: Active Member Role Status Dates Linwood Cowart Primary Care Provider Active Team Status: Inactive Member Role Status Dates Evelia SUE, MUSIC THERAPY SPECIALIST-C Primary Care Provider Activ e Start: April 07, 2024 End: April 07, 2024 Dr. Carlos Wang , Attending Provider Active Start: April 07, 2024 End: April 07, 2024 Dr. Carlos Wang , Emergency Provider Active Start: April 07, 2024 End: April 07, 2024 Team Status: Inactive Member Role Status Dates Evelia SUE, MUSIC THERAPY SPECIALIST-C Primary Care Provider Activ e Start: April 25, 2024 End: April 28, 2024 Dr. Cindy Mendez , Emergency Provider Active S tart: April 25, 2024 End: April 28, 2024 Dr. Hubert Hastings DO Admit Provider Active Start: April 25, 2024 End: April 28, 2024 Dr. Hubert Hastings DO Referring Provider Active Start: April 25, 2024 End: April 28, 2024 Dr. Hubert Hastings DO Other Provider Active Start: April 25, 2024 End: April 28, 2024 Dr. Luis Nieto DO Attending Provider Active Start: April 25, 2024 End: April 28, 2024 Dr. Nba Seth MD Other Provider Active Sta rt: April 25, 2024 End: April 28, 2024 Team Status: Active Member Role Status Dates Evelia SUE, MUSIC THERAPY SPECIALIST-C Primary Care Provider Activ e Start: April 26, 2024 Dr. Cindy Mendez DO Emergency Provider Active S tart: April 26, 2024 Dr. Hubert Hastings DO Admit Provider Active Start: April 26, 2024 Dr. Hubert Hastings DO Other Provider Active Start: April 26, 2024 Dr. Nba Seth MD Attending Provider Active Start: April 26, 2024 Dr. Nba Seth MD Other Provider Active Sta rt: April 26, 2024 Team Status: Active Member Role Status Dates Evelia Gil RAPHAELC, MUSIC THERAPY SPECIALIST-C Primary Care Provider Activ e Start: April 27, 2024 Dr. Deedee Torres MD Attending Provider Activ e Start: April 27, 2024 Team Status: Active Member Role Status Dates Evelia Gil RAPHAELC, MUSIC THERAPY SPECIALIST-C Primary Care Provider Activ e Start: April 27, 2024 Dr. Cindy Mendez , DO Emergency Provider Active S tart: April 27, 2024 Dr. Hubert Hastings , DO Admit Provider Active Start: April 27, 2024 Dr. Hubert Hastings , DO Other Provider Active Start: April 27, 2024 Dr. Luis Nieto , DO Attending Provider Active Start: April 27, 2024 Dr. Luis Nieto , DO Other Provider Active S tart: April 27, 2024 Dr. Nba Seth MD Other Provider Active Sta rt: April 27, 2024 Team Status: Active Member Role Status Dates Evelia Gil RAPHAELC, MUSIC THERAPY SPECIALIST-C Primary Care Provider Activ e Start: April 28, 2024 Dr. Yogi Lind MD Attending Provider Active Start: April 28, 2024 Dr. Yogi Lind MD Referring Provider Active Start: April 28, 2024 Team Status: Active Member Role Status Dates Evelia Gil RAPHAELC, MUSIC THERAPY SPECIALIST-C Primary Care Provider Activ e Start: April 28, 2024 Dr. Cindy Mendez , DO Emergency Provider Active S tart: April 28, 2024 Dr. Hubert Hastings , DO Admit Provider Active Start: April 28, 2024 Dr. Hubert Hastings , DO Other Provider Active Start: April 28, 2024 Dr. Luis Nieto , DO Attending Provider Active Start: April 28, 2024 Dr. Luis Nieto , DO Other Provider Active S tart: April 28, 2024 Dr. Nba Seth MD Other Provider Active Sta rt: April 28, 2024 Team Status: Inactive Member Role Status Dates Evelia Gil VSC, MUSIC THERAPY SPECIALIST-C Primary Care Provider Activ e Start: May 05, 2024 End: May 05, 2024 Geoffrey Cowart VSC, MUSIC THERAPY SPECIALIST-C Attending Provider Active Start: May 05, 2024 End: May 05, 2024 Team Status: Inactive Member Role Status Dates Evelia Gil VSC, MUSIC THERAPY SPECIALIST-C Primary Care Provider Activ e Start: May 12, 2024 End: May 12, 2024 Dr. Curly Perea MD Attending Provider Active Start: May 12, 2024 End: May 12, 2024 Team Status: Inactive Member Role Status Dates Eevlia Gil VSC, MUSIC THERAPY SPECIALIST-C Referring Provider Active Start: July 07, 2024 End: July 07, 2024 EARL Good Attending Provider Active St art: July 07, 2024 End: July 07, 2024 Knollwood Beam Primary Care Provider Active Start: July 07, 2024 End: July 07, 2024 Team Status: Active Member Role Status Dates [facility] Primary Care Provider A ctive Team Status: Inactive Member Role Status Dates [facility] Primary Care Provider A ctive Dr. Bari Goldstein DO Attending Provider Active Lawanda LIMC, MUSIC THERAPY SPECIALIST-C Referring Provider Active Team Status: Inactive Member Role Status Dates [facility] Primary Care Provider A ctive Dr. Aly Ann MD Attending Provider, Referring Pro vider Active Dr. Taran Womack MD Other Provider Active Dr. Bari Goldstein DO Other Provider Active Evelia Gil MUSIC THERAPY SPECIALIST, MUSIC THERAPY SPECIALIST-C Other Provider Active Team Status: Inactive Member Role Status Dates [facility] Primary Care Provider, Referring Provider Active Susan Biswas PA, PA Attending Provider Active Team Status: Inactive Member Role Status Dates [facility] Primary Care Provider A ctive Dr. Aly Ann MD Attending Provider, Referring Pro vider Active Dr. Taran Womack MD Other Provider Active Dr. Bari Goldstein DO Other Provider Active Evelia Gil MUSIC THERAPY SPECIALIST, MUSIC THERAPY SPECIALIST-C Other Provider Active Susan Biswas PA, PA Other Provider Active Team Status: Active Member Role Status Dates Evelia Gil VSC, MUSIC THERAPY SPECIALIST-C Primary Care Provider Activ e Team Status: Inactive Member Role Status Dates Evelia Gil VSC, MUSIC THERAPY SPECIALIST-C Primary Care Provider Activ e Start: January 01, 2024 End: January 01, 2024 Evelia Gil VSC, MUSIC THERAPY SPECIALIST-C Attending Provider Active Start: January 01, 2024 End: January 01, 2024 Team Status: Inactive Member Role Status Dates Susan ELLIOTT PA Attending Provider Active Start: January 07, 2024 End: 2024 Susan ELLIOTT PA Referring Provider Active Start: January 07, 2024 End: 2024 Evelia LIMC, MUSIC THERAPY SPECIALIST-C Primary Care Provider Activ e Start: January 07, 2024 End: 2024 Team Status: Active Member Role Status Dates Evelia LIMC, MUSIC THERAPY SPECIALIST-C Primary Care Provider Activ e Start: April 25, 2024 Dr. Cindy Mendez , Emergency Provider Active S tart: April 25, 2024 Dr. Hubert Hastings , Admit Provider Active Start: April 25, 2024 Dr. Hubert Hastings , Attending Provider Active Start: April 25, 2024 Dr. Hubert Hastings , Referring Provider Active Start: April 25, 2024 Team Status: Active Member Role Status Dates Evelia Gil RAPHAELC, MUSIC THERAPY SPECIALIST-C Primary Care Provider Activ e Start: April 26, 2024 Dr. Cindy Mendez , Emergency Provider Active S tart: April 26, 2024 Dr. Hubert Hastings , Admit Provider Active Start: April 26, 2024 Dr. Hubert Hastings DO Referring Provider Active Start: April 26, 2024 Dr. Hubert Hastings , Other Provider Active Start: April 26, 2024 Dr. Nba Seth MD Attending Provider Active Start: April 26, 2024 Dr. Nba Seth MD Other Provider Active Sta rt: April 26, 2024 Team Status: Active Member Role Status Dates Evelia LIMC, MUSIC THERAPY SPECIALIST-C Primary Care Provider Activ e Start: May 12, 2024 Dr. Curly Perea MD Attending Provider Active Start: May 12, 2024 Team Status: Inactive Member Role Status Dates Susan ELLIOTT PA Attending Provider Active Start: July 07, 2024 End: July 07, 2024 Susan ELLIOTT PA Referring Provider Active Start: July 07, 2024 End: July 07, 2024 Linwood Beam Primary Care Provider Active Start: July 07, 2024 End: July 07, 2024 Team Status: Active Member Role/Relationship Status Dates Knollwood Beam Primary Care Provider Active Team Status: Inactive Member Role/Relationship Status Dates Evelia Gil VSC, MUSIC THERAPY SPECIALIST-C Referring Provider Active Start: July 07, 2024 End: July 07, 2024 EARL Good Attending Provider Active St art: July 07, 2024 End: July 07, 2024 Linwood Beam Primary Care Provider Active Start: July 07, 2024 End: July 07, 2024 Team Status: Inactive Member Role/Relationship Status Dates Susan Biswas PA, PA Attending Provider Active Start: July 07, 2024 End: July 07, 2024 Susan Biswas PA, PA Referring Provider Active Start: July 07, 2024 End: July 07, 2024 Knollwood Beam Primary Care Provider Active Start: July 07, 2024 End: July 07, 2024 Team Status: Active Member Role/Relationship Status Dates Susan Biswas PA, PA Attending Provider Active Start: September 09, 2024 Susan Biswas PA, PA Referring Provider Active Start: September 09, 2024 Linwood Beam Primary Care Provider Active Start: September 09, 2024 Team Status: Inactive Member Role/Relationship Status Dates [facility] Referring Provider Acti ve Start: September 11, 2024 End: September 11, 2024 Susan Biswas PA, PA Attending Provider Active Start: September 11, 2024 End: September 11, 2024 Linwood Beam Primary Care Provider Active Start: September 11, 2024 End: September 11, 2024 Team Status: Inactive Member Role/Relationship Status Dates Linwood Beam Primary Care Provider Active Start: September 11, 2024 End: September 11, 2024 Susan Biswas PA, PA Attending Provider Active Start: September 11, 2024 End: September 11, 2024 Susan Biswas PA, PA Referring Provider Active Start: September 11, 2024 End: September 11, 2024 Team Status: Inactive Member Role/Relationship Status Dates Susan Biswas PA, PA Attending Provider Active Start: September 09, 2024 End: September 17, 2024 Susan Biswas PA, PA Referring Provider Active Start: September 09, 2024 End: September 17, 2024 Knollwood Beam Primary Care Provider Active Start: September 09, 2024 End: September 17, 2024 Team Status: Active Member Role/Relationship Status Dates Linwood Beam Primary care physician Active Team Status: Inactive Member Role/Relationship Status Dates Susan ELLIOTT PA Attending physician Active Start: September 09, 2024 End: September 17, 2024 Susan ELLIOTT PA Referring Provider Active Start: September 09, 2024 End: September 17, 2024 Linwood Beam Primary care physician Active Start : September 09, 2024 End: September 17, 2024 Team Status: Inactive Member Role/Relationship Status Dates [facility] Referring Provider Acti ve Start: September 11, 2024 End: September 11, 2024 Susan ELLIOTT PA Attending physician Active Start: September 11, 2024 End: September 11, 2024 Linwood Beam Primary care physician Active Start : September 11, 2024 End: September 11, 2024 Team Status: Inactive Member Role/Relationship Status Dates Linwood Beam Primary care physician Active Start : September 11, 2024 End: September 11, 2024 EARL Aguilar Attending physician Active Start: September 11, 2024 End: September 11, 2024 Susan ELLIOTT PA Referring Provider Active Start: September 11, 2024 End: September 11, 2024 Team Status: Active Member Role/Relationship Status Dates EARL Aguilar Attending physician Active Start: November 25, 2024 Susan ELLIOTT PA Referring Provider Active Start: November 25, 2024 Knollwood Beam Primary care physician Active Start : November 25, 2024 Team Status: Active Member Role/Relationship Status Dates Linwood Beam Primary care physician Active Start : November 25, 2024 [facility] Cowart VSC, MUSIC THERAPY SPECIALIST-C Attending physician Active Start: November 25, 2024 Team Status: Inactive Member Role/Relationship Status Dates Linwood Beam Primary care physician Active Start : November 25, 2024 End: November 25, 2024 Knollwood Beam Referring Provider Active Start: Oc tober 2024 End: November 25, 2024 Susan ELLIOTT PA Attending physician Active Start: November 25, 2024 End: November 25, 2024 (unrecognized sect ion and content) No Status Records Found INFORMATION SOURCE (unrecogn ized section and content) DATE CREATED AUTHOR 12/20/2024 [facility] FOR RECORDS PERTAINING TO PATIENTS WHO ARE OR HAVE BEEN ENROLLED IN A CHEMICAL DEPENDENCY/SUBSTANCEABUSE PROGRAM, SOME INFORMATION MAY BE OMITTED. This clinical summary was aggregated from multiple sources. Caution should be exercised in using it in the provision of clinical care. This summary normalizes information from multiple sources, and as a consequence, information in this document may materially change the coding, format and clinical context of patient data. In addition, data may be omitted in some cases. CLINICAL DECISIONS SHOULD BE BASED ON THE PRIMARY CLINICAL RECORDS. [facility] provides no warranty or guarantee of the accuracy or completeness of information in this document.
[2024-12-30 19:35] LABS: Troponin T High Sens 4 HR 80 ng/L (<=22)
--- OUTSIDE RECORDS SUMMARY | 2024-12-30 19:35 | XMS RPT_ITS | CCD ---
Author Organization [facility] Care Team Providers Care Quilter Fixer Name Role Phone [facility], Sunita Foleychina Primary Care Pro vider [facility], [place] Referring Provid er Dr. Aly Ann Attending Provider [phone] [facility], Sunita Whitten Primary Care Pro vider [facility], [place] Referring Provid er Dr. Aly Ann Attending Provider [phone] [facility], Sunita Whitten Attending Provid er EARL Contreras Attending Provider EARL Contreras Referring Provider EARL Contreras Other Provider [phone] Dr. Bari Goldstein Attending Provider Dr. Lavell Huerta Attending Provider [facility], Sunita Whitten Primary Care Pro vider Dr. Bari Goldstein Attending Provider [phone] Mao VSC, J2EE DEVELOPER-C Lawanda Referring Provider [facility], Sunita Yordy Primary Care Pro vider [facility], Sunita Whitten Referring Provid er EARL Contreras Attending Provider Jeyson J2EE DEVELOPER-CEvelia Primary Care Provider Jeyson J2EE DEVELOPER-CEvelia Attending Provider Susan Contreras Attending Provider Susan Contreras Referring Provider Dr. Carlos Wang DO Attending Provider Kathleen SOL, Dr. Gonzalez Emergency Provider Vanessa SOL, Dr. White Emergency Provider Darling SOL, Dr. Gaspar Admit Provider Dr. Hubert Hastings DO Attending Provider Dr. Hubert Hastings DO Referring Provider Jeyson J2EE DEVELOPER-C, Evelia Primary Care Provider Jeyson J2EE DEVELOPER-C, Evelia Attending Provider Susan Contreras Attending Provider [...] Brian MAYEN, Dr. Mark Attending Provider Jeyson J2EE DEVELOPER-C, Evelia Primary Care Provider Dr. Luis Nieto DO Other Provider Sofya J2EE DEVELOPER-C, Geoffrey Attending Provider Brit MAYEN, Dr. Curly Nowak Attending Provider Dr. Yogi Lind MD Attending Provider Dr. Yogi Lind MD Referring Provider Jeyson J2EE DEVELOPER-C, Evelia Referring Provider Tanner Sharpe Attending Provider Beam, Haugan Primary Care Provider Unavailabl e Susan Contreras Attending Provider Susan Contreras Referring Provider [facility], [place] Y[place] Referring Provid er Susan Contreras Attending Physician Susan Contreras Referring Provider Beam, Haugan Primary Care Physician Unavailab le Beam J2EE DEVELOPER-C, Geoffrey Attending Physician Beam, Linwood Referring Provider Unavailable Beam, Haugan Primary Care Unavailable Susan Contreras Attending Unavail able Susan Contreras Referring Unavail able Jeyson [facility], Evelia Primary Care Unavailabl e Curly Perea V Attending Unavailable Susan Contreras Referring Unavail able Susan Contreras Attending Unavail able Beam, Haugan Primary Care Unavailable Beam, Linwood Primary Care Unavailable Beam VSC, Geoffrey Attending Unavailable Beam, Haugan Primary Care Unavailable Susan Contreras Referring Unavail able Susan Contreras Attending Unavail able Beam, Haugan Primary Care Unavailable Susan Contreras Referring Unavail able Susan Contreras Attending Unavail able Beam, Haugan Primary Care Unavailable Susan Contreras Attending Unavail able Susan Contreras Referring Unavail able Jeyson VSC, Evelia Primary Care Unavailabl e Hubert Hastings Consulting Unavailable Hubert Hastings Admitting Unavailable Hubert Hastings Referring Unavailable Nba Seth Attending Unavailable Nba Seth Consulting Unavailable Luis Nieto Attending Unavailable Luis Nieto Consulting Unavailable Jeyson VSC, Evelia Primary Care Unavailabl e Deedee Torres Attending Unavailabl [facility], [place] [facility] Referring Unavailable Susan Contreras Attending Unavail able Beam, Haugan Primary Care Unavailable Beam, Haugan Referring Unavailable Beam, Linwood Primary Care Unavailable Susan Contreras Attending Unavail able Beam, Haugan Primary Care Unavailable Jeyson [facility], [facility] Referring Unavailabl e Tanner Rain Attending Unavailable [facility], [facility] Primary Care Unavailabl e Beam [facility] Attending Unavailable [facility], [facility] Primary Care Unavailabl e [facility], Evelia Attending Unavailabl e [facility], [facility] Primary Care Unavailabl e Samarshall, Yogi Referring Unavailable Samarshall, Yogi Attending Unavailable Hubert Hastings Attending Unavailable [facility], [facility] Unavailabl e Susan Contreras Referring Unavail able Susan Contreras Attending Unavail able [facility], [facility] Unavailabl e Carlos Wang Attending Unavailable [facility], [facility] Unavailterrie e Hubert Hastings Consulting Unavailable Hubert Hastings Admitting Unavailable Hubert Hastings Referring Unavailable Luis Nieto Attending Unavailable Nba Seth Consulting Unavailable Allergies Allergy Classification Reported Allergen(s) Allergy Type Date of Onset Reaction(s) Facility (15 sources) amLODIPine Drug Allergy 01-09-2022 Other [facility] Comment on above: Dizziness, blacking out (15 sources) benazepril Drug Allergy 01-09-2022 [facility] Comment on above: Dizziness, blacking out (1 source) Furosemide Drug Allergy 11-25-2024 Pain in legs [facility] (1 source) amLODIPine Drug Allergy 11-25-2024 [facility] (1 source) benazepril Drug Allergy 11-25-2024 [facility] (1 source) Furosemide Drug Allergy 11-25-2024 [facility] Medications Current Medications Medication Drug Class(es) [...] overload (shortness of breath or swelling). Contact paramedic if having these symptoms and directions will [...] sources) Long-term current use of anticoagulant; Translations: [l[place]st[place] (current) use of anticoagulants] 11-21-2021 Episodic Other aftercare (1 source) retirement (current) use of anticoagulants; Translations: [retirement (current) use of anticoagulants] Onset: 12-18-2024 Episodic [...] Auto (Unsp spec) [#/Vol] 1.10 10*3/uL 0.83-4.51 [facility] Absolute neutrophil countOrd ered By: Geoffrey Cowart on 11-25-2024 Neutrophils (Bld) [#/Vol] 8.0 10*3/uL High 2.0-7.7 [facility] Automated lymphocyte count a s percentage of total leukocytesOrdered By: Geoffrey Cowart on 11-25-2024 Lymphocytes/100 WBC Auto (Unsp spec) 10.9 % Low 19-41 [facility] Basophil percentageOrdered B y: Geoffrey Cowart on 11-25-2024 Basophils/100 WBC (Bld) 0.4 % 0-1 [facility] CBC W/Diff, Automatedon 10-0 8-2024 Absolute Lymph 1.10 X10 3/uL Normal 0.83-4.51 [facility] Comment on above: Performed By: #### L 500.2500, L300.3900, L001.0705, L504.2610, L100.0100 #### [facility] [address] [place], [address] Absolute Neut 8.0 X10 3/uL High 2.0-7.7 [facility] Comment on above: Performed By: #### L 500.2500, L300.3900, L001.0705, L504.2610, L100.0100 #### [facility] [address] [place], [address] Basophils/100 WBC (Bld) 0.4 % Normal 0-1 [facility] Comment on above: Performed By: #### L 500.2500, L300.3900, L001.0705, L504.2610, L100.0100 #### [facility] [address] [place], [address] Eosinophils/100 WBC (Bld) 1.3 % Normal 0-5 [facility] Comment on above: Performed By: #### L 500.2500, L300.3900, L001.0705, L504.2610, L100.0100 #### [facility] [address] [place], [address] Erythrocyte distribution width (RBC) [Ratio] 14.5 % Normal 11.6-14.6 [facility] Comment on above: Performed By: #### L 500.2500, L300.3900, L001.0705, L504.2610, L100.0100 #### [facility] [address] [place], [address] Hematocrit (Bld) [Volume fraction] 37.8 % Low 40-54 [facility] Comment on above: Performed By: #### L 500.2500, L300.3900, L001.0705, L504.2610, L100.0100 #### [facility] [address] [place], [address] Hemoglobin (Bld) [Mass/Vol] 12.5 g/dL Low 13.0-16.5 [facility] Comment on above: Performed By: #### L 500.2500, L300.3900, L001.0705, L504.2610, L100.0100 #### [facility] [address] [place], [address] IG% 0.400 Normal 0.0-0.9 [facility] Comment on above: Result Comment: IG% - Immature Granulocytes (promyelocytes, myelocytes and metamyelocytes) > 1% indicates that a LEFT SHIFT is Present. Performed By: #### L 500.2500, L300.3900, L001.0705, L504.2610, L100.0100 #### [facility] [address] [place], [address] Lymphocytes/100 WBC (Bld) 10.9 % Low 19-41 [facility] Comment on above: Performed By: #### L 500.2500, L300.3900, L001.0705, L504.2610, L100.0100 #### [facility] [address] [place], [address] MCH (RBC) [Entitic mass] 28.2 pg Normal 27.0-32.0 [facility] Comment on above: Performed By: #### L 500.2500, L300.3900, L001.0705, L504.2610, L100.0100 #### [facility] [address] [place], [address] MCHC (RBC) [Mass/Vol] 33.1 g/dL Normal 32-36 [facility] Comment on above: Performed By: #### L 500.2500, L300.3900, L001.0705, L504.2610, L100.0100 #### [facility] [address] [place], [address] MCV (RBC) [Entitic vol] 85.1 fL Normal 80-94 [facility] Comment on above: Performed By: #### L 500.2500, L300.3900, L001.0705, L504.2610, L100.0100 #### [facility] [address] [place], [address] Monocytes/100 WBC (Bld) 8.0 % Normal 0-10 [facility] Comment on above: Performed By: #### L 500.2500, L300.3900, L001.0705, L504.2610, L100.0100 #### [facility] [address] [place], [address] Neutrophils/100 WBC (Bld) 79.0 % High 47-70 [facility] Comment on above: Performed By: #### L 500.2500, L300.3900, L001.0705, L504.2610, L100.0100 #### [facility] [address] [place], [address] Nucleated RBC (Bld) [#/Vol] 0 10*3/uL Normal 0-5 [facility] Comment on above: Performed By: #### L 500.2500, L300.3900, L001.0705, L504.2610, L100.0100 #### [facility] [address] [place], [address] Platelet mean volume (Bld) [Entitic vol] 9.7 fL Normal 6.2-12.0 [facility] Comment on above: Performed By: #### L 500.2500, L300.3900, L001.0705, L504.2610, L100.0100 #### [facility] [address] [place], [address] Platelets (Bld) [#/Vol] 233 10*3/uL Normal 150-450 [facility] Comment on above: Performed By: #### L 500.2500, L300.3900, L001.0705, L504.2610, L100.0100 #### [facility] [address] [place], [address] RBC (Bld) [#/Vol] 4.44 10*6/uL Low 4.6-6.2 [facility] Comment on above: Performed By: #### L 500.2500, L300.3900, L001.0705, L504.2610, L100.0100 #### [facility] [address] [place], [address] RDW SD 44.4 fl High 35.1-43.9 [facility] Comment on above: Performed By: #### L 500.2500, L300.3900, L001.0705, L504.2610, L100.0100 #### [facility] [address] [place], [address] WBC (Bld) [#/Vol] 10.1 10*3/uL Normal 4.4-11.0 [facility] Comment on above: Performed By: #### L 500.2500, L300.3900, L001.0705, L504.2610, L100.0100 #### [facility] [address] [place], [address] Cardiology Visit Reporton Cardiology Visit Report [facility] [address] [place] [address] OFFICE VISIT Date of Service: 11/25/24 MR#: [id number] Acct: [id number] Name: BLAYNE MORALES Rep #: [id number] : 1950 Provider: EARL Aguila Age/Sex: 74/M Location: [facility] Status: Signed HPI HPI History of Present [...] room air Intake Visit Reasons: 3 M Can Machine Operator Required: No Accompanied by: Sister Is patient [...] overweight Orienta (more content not included)... Normal [facility] Comprehensive Metabolic Prof ilon 11-25-2024 Albumin [Mass/Vol] 4.1 g/dL Normal 3.4-4.8 [facility] Comment on above: Performed By: #### L 500.2500, L300.3900, L001.0705, L504.2610, L100.0100 #### [facility] [address] [place], [address] Albumin/Globulin [Mass ratio] 1.2 {ratio} Normal 0.9-2.4 [facility] Comment on above: Performed By: #### L 500.2500, L300.3900, L001.0705, L504.2610, L100.0100 #### [facility] [address] [place], [address] ALK PHOS 97 U/L Normal 40-129 [facility] Comment on above: Performed By: #### L 500.2500, L300.3900, L001.0705, L504.2610, L100.0100 #### [facility] [address] [place], [address] ALT [Catalytic activity/Vol] 12 U/L Normal <=46 [facility] Comment on above: Performed By: #### L 500.2500, L300.3900, L001.0705, L504.2610, L100.0100 #### [facility] [address] [place], [address] AST [Catalytic activity/Vol] 20 U/L Normal <=37 [facility] Comment on above: Performed By: #### L 500.2500, L300.3900, L001.0705, L504.2610, L100.0100 #### [facility] [address] [place], [address] Bilirubin [Mass/Vol] 1.21 mg/dL Normal 0.00-1.30 [facility] Comment on above: Performed By: #### L 500.2500, L300.3900, L001.0705, L504.2610, L100.0100 #### [facility] [address] [place], [address] BUN/CRE 16.5 RATIO Normal 10-20 [facility] Comment on above: Performed By: #### L 500.2500, L300.3900, L001.0705, L504.2610, L100.0100 #### [facility] [address] [place], [address] Calcium [Mass/Vol] 10.3 mg/dL Normal 7.6-11.0 [facility] Comment on above: Performed By: #### L 500.2500, L300.3900, L001.0705, L504.2610, L100.0100 #### [facility] [address] [place], [address] Chloride [Moles/Vol] 103 mmol/L Normal 98-108 [facility] Comment on above: Performed By: #### L 500.2500, L300.3900, L001.0705, L504.2610, L100.0100 #### [facility] [address] [place], [address] CO2 [Moles/Vol] 23.2 mmol/L Normal 21.0-32.0 [facility] Comment on above: Performed By: #### L 500.2500, L300.3900, L001.0705, L504.2610, L100.0100 #### [facility] [address] [place], [address] Creatinine [Mass/Vol] 0.89 mg/dL Normal 0.70-1.20 [facility] Comment on above: Performed By: #### L 500.2500, L300.3900, L001.0705, L504.2610, L100.0100 #### [facility] [address] [place], [address] GAP 11 Normal 5-15 [facility] Comment on above: Performed By: #### L 500.2500, L300.3900, L001.0705, L504.2610, L100.0100 #### [facility] [address] [place], [address] GFR/1.73 sq M.predicted among non-blacks MDRD (S/P/Bld) [Vol rate/Area] 90 mL/min/{1.73_m2} Normal >60 [facility] Comment on above: Result Comment: mL/m in/1.73m2 CKD-EPI Creatinine Equation (2020) Performed By: #### L 500.2500, L300.3900, L001.0705, L504.2610, L100.0100 #### [facility] [address] [place], [address] Globulin (S) [Mass/Vol] 3.5 g/dL Normal 2.2-4.2 [facility] Comment on above: Performed By: #### L 500.2500, L300.3900, L001.0705, L504.2610, L100.0100 #### [facility] [address] [place], [address] Glucose [Mass/Vol] 52 mg/dL Low 70-99 [facility] Comment on above: Performed By: #### L 500.2500, L300.3900, L001.0705, L504.2610, L100.0100 #### [facility] [address] [place], [address] Potassium [Moles/Vol] 3.8 mmol/L Normal 3.3-5.1 [facility] Comment on above: Performed By: #### L 500.2500, L300.3900, L001.0705, L504.2610, L100.0100 #### [facility] [address] [place], [address] Sodium [Moles/Vol] 137 mmol/L Normal 133-145 [facility] Comment on above: Performed By: #### L 500.2500, L300.3900, L001.0705, L504.2610, L100.0100 #### [facility] [address] [place], [address] T PROT 7.6 g/dL Normal 5.9-8.4 [facility] Comment on above: Performed By: #### L 500.2500, L300.3900, L001.0705, L504.2610, L100.0100 #### [facility] [address] [place], [address] Urea nitrogen [Mass/Vol] 15 mg/dL Normal 4-19 [facility] Comment on above: Performed By: #### L 500.2500, L300.3900, L001.0705, L504.2610, L100.0100 #### [facility] [address] [place], [address] Eosinophil percentageOrdered By: Josebunabiln Beam on 11-25-2024 Eosinophils/100 WBC (Bld) 1.3 % 0-5 [facility] Erythrocyte distribution wid th ratioOrdered By: Zebulun Beam on 11-25-2024 Erythrocyte distribution width (RBC) [Ratio] 14.5 % 11.6-14.6 [facility] Erythrocyte distribution wid th standard deviationOrdered By: Zebulun Beam on 11-25-2024 Erythrocyte distribution width (RBC) [Ratio] 44.4 fl High 35.1-43.9 [facility] Hematocrit Auto (Bld) [Volum e fraction]Ordered By: Geoffrey Cowart on 11-25-2024 Hematocrit (Bld) [Volume fraction] 37.8 % Low 40-54 [facility] Hemoglobin measurementOrdere d By: Geoffrey Cowart on 11-25-2024 Hemoglobin (Bld) [Mass/Vol] 12.5 g/dL Low 13.0-16.5 [facility] Immature granulocytes/100 WB C Auto (Bld)Ordered By: yogesh Cowart on 11-25-2024 Immature granulocytes/100 WBC (Bld) 0.400 % 0.0-0.9 [facility] Comment on above: IG% - Immature Granu locytes (promyelocytes, myelocytes and metamyelocytes) > 1% indicates that a LEFT SHIFT is Present. International normalized rat io (INR) calculationOrdered By: Susan Biswas on 11-25-2024 INR Coag (Bld) [Relative time] 2.2 {INR} [facility] MCV (mean corpuscular volume ) determinationOrdered By: joserusty Cowart on 11-25-2024 MCV (RBC) [Entitic vol] 85.1 fL 80-94 [facility] Mean corpuscular hemoglobin (MCH) determinationOrdered By: [facility] Cowart on 11-25-2024 MCH (RBC) [Entitic mass] 28.2 pg 27.0-32.0 [facility] Mean corpuscular hemoglobin concentration (MCHC) determinationOrdered By: yogesh Cowart on 11-25-2024 MCHC (RBC) [Mass/Vol] 33.1 g/dL 32-36 [facility] Mean platelet volume determi nationOrdered By: yogesh Cowart on 11-25-2024 Platelet mean volume (Bld) [Entitic vol] 9.7 fL 6.2-12.0 [facility] Microalb:Creat Ratio,Random URon 11-25-2024 MALB:CREAT Normal <30 mg/g CRE [facility] Comment on above: Result Comment: KEYSHA ENT REFUSED URINE Performed By: #### L 500.2500, L300.3900, L001.0705, L504.2610, L100.0100 #### [facility] [address] [place], [place], [address] MICROALBUMIN,UR Normal <20 mg/L [facility] Comment on above: Result Comment: KEYSHA ENT REFUSED URINE Performed By: #### L 500.2500, L300.3900, L001.0705, L504.2610, L100.0100 #### [facility] [address] [place], [place], [address] UR CREAT Normal 39.00-259. 00 [facility] Comment on above: Result Comment: KEYSHA ENT REFUSED URINE Performed By: #### L 500.2500, L300.3900, L001.0705, L504.2610, L100.0100 #### [facility] [address] [place], [address] Monocyte percentageOrdered B y: Geoffrey Beam on 11-25-2024 Monocytes/100 WBC (Bld) 8.0 % 0-10 [facility] Neutrophil percentageOrdered By: Zebulun Beam on 11-25-2024 Neutrophils/100 WBC (Bld) 79.0 % High 47-70 [facility] Nucleated red blood cell per centageOrdered By: Zebulun Beam on 11-25-2024 Nucleated RBC/100 WBC (Bld) [Ratio] 0 % 0-5 [facility] Platelet countOrdered By: Ze bulun Sofya on 11-25-2024 Platelets (Bld) [#/Vol] 233 10*3/uL 150-450 [facility] Prothrombin Time w/INRon INR Coag (PPP) [Relative time] 2.2 {INR} Normal [facility] Comment on above: Order Comment: Comme nts: STANDING ORDER: Fax to [phone] Performed By: #### L 500.2500, L300.3900, L001.0705, L504.2610, L100.0100 #### [facility] [address] [place], [address] PT Coag (PPP) [Time] 24.7 s High 11.7-14.9 [facility] Comment on above: Order Comment: Comme nts: STANDING ORDER: Fax to [phone] Performed By: #### L 500.2500, L300.3900, L001.0705, L504.2610, L100.0100 #### [facility] [address] [place], [address] Prothrombin timeOrdered By: Susan Biswas on 11-25-2024 PT Coag (PPP) [Time] 24.7 s High 11.7-14.9 [facility] RBC Auto (Bld) [#/Vol]Ordere d By: Geoffrey Cowart on 11-25-2024 RBC (Bld) [#/Vol] 4.44 10*6/uL Low 4.6-6.2 [facility] Thyroid Stim Hormone (TSH)on 11-25-2024 TSH 1.140 uIU/mL Normal 0.300-4.20 0 [facility] Comment on above: Performed By: #### L 500.2500, L300.3900, L001.0705, L504.2610, L100.0100 #### [facility] [address] [place], [place], [address] White blood cell (WBC) count Ordered By: Geoffrey Cowart on 11-25-2024 WBC (Bld) [#/Vol] 10.1 10*3/uL 4.4-11.0 [facility] Cardiology Visit Reporton Cardiology Visit Report [facility] [address] [place], [place] [address] OFFICE VISIT Date of Service: 09/11/24 MR#: [id number] Acct: [id number] Name: TRINIDADBLAYNE Rep #: [id number] : 1950 Provider: EARL Aguila Age/Sex: 74/M Location: [facility] Status: Signed HPI HPI History of Present Illness Details: Blayne Morales is a 74-year-old male who presents to the office today for acute visit as recommended from PCP. Patient was admitted to [facility] 04/25 - 04/28/2024 secondary to hypoglycemia and [...] air Intake Visit Reasons: 1 Y FU Can Machine Operator Required: No Accompanied by: Sister Is patient [...] with activity (more content not included)... Normal [facility] Chest PA and Lateralon 09-11 Chest PA and Lateral [facility] [address] [place] [address] Chest PA and Lateral MR#: [id number] Acct: [id number] Name: BLAYNE MORALES Rep #: [id number] : 1950 M 74 From: Luis John MD PCP: Linwood Cowart Status: REG CLI Study: Chest PA and Lateral Date of Exam: 09/11/24 Exam# [id number] Ordering Dr: Susan Biswas PA EXAM: XR [...] pneumonia. 2. Right pleural effusion. Reading Location: [id number] CC: EARL Monson; Linwood Cowart Diesel Electrician: Signed [facility] International normalized rat io (INR) calculationOrdered By: Susan Biswas on 09-09-2024 INR Coag (Bld) [Relative time] 3.6 {INR} [facility] Prothrombin Time w/INRon INR Coag (PPP) [Relative time] 3.6 {INR} Normal [facility] Comment on above: Performed By: #### L 500.2500, L300.3900, L001.0705, L504.2610, L100.0100 #### [facility] [address] [place], [address] PT Coag (PPP) [Time] 36.7 s High 11.7-14.9 [facility] Comment on above: Performed By: #### L 500.2500, L300.3900, L001.0705, L504.2610, L100.0100 #### [facility] [address] [place], [address] Prothrombin timeOrdered By: Susan Biswas on 09-09-2024 PT Coag (PPP) [Time] 36.7 s High 11.7-14.9 [facility] Protime w/INR Fingerstickon 09-09-2024 INR Coag (PPP) [Relative time] 4.0 {INR} Invalid Interpretation Code [facility] Comment on above: Result Comment: Crit ical Value > 4.0 Performed By: #### L 300.3900 #### [facility] [address] [place], [address] Protime Coagsen 39.9 SEC High 11.7-14.9 [facility] Comment on above: Performed By: #### L 300.3900 #### [facility] [address] [place], [address] Whole blood prothrombin time Ordered By: Susan Biswas on 09-09-2024 PT Coag (Bld) [Time] 39.9 s High 11.7-14.9 [facility] Protime w/INR Fingerstickon 09-03-2024 INR Coag (PPP) [Relative time] 4.5 {INR} Invalid Interpretation Code [facility] Comment on above: Result Comment: Crit ical Value > 4.0 Performed By: #### L 500.2500, L300.3900, L001.0705, L504.2610, L100.0100 #### [facility] [address] [place], [address] Protime [place]agsen 44.2 SEC High 11.7-14.9 [facility] Comment on above: Performed By: #### L 500.2500, L300.3900, L001.0705, L504.2610, L100.0100 #### [facility] [address] [place], [address] Prothrombin Time w/INRon INR Coag (PPP) [Relative time] 3.9 {INR} Normal [facility] Comment on above: Performed By: #### L 500.2500, L300.3900, L001.0705, L504.2610, L100.0100 #### [facility] [address] [place], [address] PT Coag (PPP) [Time] 38.9 s High 11.7-14.9 [facility] Comment on above: Performed By: #### L 500.2500, L300.3900, L001.0705, L504.2610, L100.0100 #### [facility] [address] [place], [address] Protime w/INR Fingerstickon 07-08-2024 INR Coag (PPP) [Relative time] 3.1 {INR} Normal [facility] Comment on above: Result Comment: Crit ical Value > 4.0 Performed By: #### L 500.2500, L300.3900, L001.0705, L504.2610, L100.0100 #### [facility] [address] [place], [address] Protime Coagsen 32.0 SEC High 11.7-14.9 [facility] Comment on above: Performed By: #### L 500.2500, L300.3900, L001.0705, L504.2610, L100.0100 #### [facility] [address] [place], [address] Cardiology Visit Reporton Cardiology Visit Report [facility] [address] [place] [address] OFFICE VISIT Date of Service: 07/07/24 MR#: [id number] Acct: [id number] Name: BLAYNE MORALES Rep #: [id number] : 1950 Provider: EARL Good Age/Sex: 74/M Location: [facility] Status: Signed HPI HPI History of Present Illness Details: Blayne Morales is a 74-year-old male who presents to the office today for acute visit as recommended from PCP. Patient was admitted to [facility] 04/25 - 04/28/2024 secondary to hypoglycemia and [...] (%) 96 Intake Visit Reasons: TY WHITTEN Can Machine Operator Required: No Is patient in pain?: No [...] for S (more content not included)... Normal [facility] normalized rat io (INR) measurement by fingerstickOrdered By: Susan Biswas on 07-07-2024 INR Coag (BldC) [Relative time] 3.1 [facility] Comment on above: Critical Value > 4.0 Prothrombin Time w/INRon INR Normal [facility] Comment on above: Order Comment: Comme nts: STANDING ORDER: Fingerstick is OK fax to [phone] Result Comment: ROE ERSTICK Performed By: #### L 300.3900 #### [facility] [address] [place], [address] PROTIME Normal 11.7-14.9 [facility] Comment on above: Order Comment: Comme nts: STANDING ORDER: Fingerstick is OK fax to [phone] Result Comment: ROE ERSTICK Performed By: #### L 300.3900 #### [facility] [address] [place], [address] Whole blood prothrombin time Ordered By: Susan Biswas on 07-07-2024 PT Coag (Bld) [Time] 32.0 s High 11.7-14.9 [facility] Body Fluid Cell Count+Diffon 06-01-2024 PATH COMM/BF Reviewed Normal [facility] Comment on above: Order Comment: The r eference range and other method performancespecifications have not been established for this bodyfluid. The test must be integrated into the clinicalcontext for interpretation. Result Comment: SEE REPORT IN PATIENT'S EMR AMENDED REPORT 06/01/24 1405 PATH COMM/BF previously reported as: May follow Performed By: #### L 500.2500, L300.3900, L001.0705, L504.2610, L100.0100 #### [facility] [address] [place], [place], [address] L503.7505on 05-12-2024 Natriuretic peptide B (Bld) [Mass/Vol] 1054 pg/mL High <=900 [facility] Comment on above: Result Comment: Hear t Failure Unlikely: < 300 pg/mL Heart Failure Likely < 50 Years: > 450 pg/mL 50-75 Years: > 900 pg/mL >75 Years: > 1800 pg/mL Performed By: #### L 300.3900 #### [facility] [address] [place], [place], [address] Laboratory - Chemistry and C hemistry - challengeOrdered By: Curly Perea on 05-12-2024 Natriuretic peptide B (Bld) [Mass/Vol] 1054 pg/mL High <900 [facility] Comment on above: Heart Failure Unlike ly: < 300 pg/mLHeart Failure Likely< 50 Years: > 450 pg/mL50-75 Years: > 900 pg/mL>75 Years: > 1800 pg/mL Anion gap in Serum or Plasma Ordered By: Geoffrey Cowart on 05-05-2024 Anion gap [Moles/Vol] 13 mmol/L - [facility] BUN/creatinine ratioOrdered By: Geoffrey Cowart on 05-05-2024 Urea nitrogen/Creatinine [Mass ratio] 23.0 mg/mg High 10- [facility] Basic Metabolic Profile (BMP )on 05-05-2024 BUN/CRE 23.0 RATIO High 10-20 [facility] Comment on above: Performed By: #### L 500.2500, L300.3900, L001.0705, L504.2610, L100.0100 #### [facility] [address] [place], [address] Calcium [Mass/Vol] 11.4 mg/dL High 7.6-11.0 [facility] Comment on above: Performed By: #### L 500.2500, L300.3900, L001.0705, L504.2610, L100.0100 #### [facility] [address] [place], [address] Chloride [Moles/Vol] 94 mmol/L Low 98-108 [facility] Comment on above: Performed By: #### L 500.2500, L300.3900, L001.0705, L504.2610, L100.0100 #### [facility] [address] [place], [address] CO2 [Moles/Vol] 25.3 mmol/L Normal 21.0-32.0 [facility] Comment on above: Performed By: #### L 500.2500, L300.3900, L001.0705, L504.2610, L100.0100 #### [facility] [address] [place], [address] Creatinine [Mass/Vol] 1.16 mg/dL Normal 0.70-1.20 [facility] Comment on above: Performed By: #### L 500.2500, L300.3900, L001.0705, L504.2610, L100.0100 #### [facility] [address] [place], [address] GAP 13 Normal 5-15 [facility] Comment on above: Performed By: #### L 500.2500, L300.3900, L001.0705, L504.2610, L100.0100 #### [facility] [address] [place], [address] GFR/1.73 sq M.predicted among non-blacks MDRD (S/P/Bld) [Vol rate/Area] 67 mL/min/{1.73_m2} Normal >60 [facility] Comment on above: Result Comment: mL/m in/1.73m2 CKD-EPI Creatinine Equation (2020) Performed By: #### L 500.2500, L300.3900, L001.0705, L504.2610, L100.0100 #### [facility] [address] [place], [address] Glucose [Mass/Vol] 169 mg/dL High 70-99 [facility] Comment on above: Performed By: #### L 500.2500, L300.3900, L001.0705, L504.2610, L100.0100 #### [facility] [address] [place], [address] Potassium [Moles/Vol] 4.7 mmol/L Normal 3.3-5.1 [facility] Comment on above: Performed By: #### L 500.2500, L300.3900, L001.0705, L504.2610, L100.0100 #### [facility] [address] [place], [address] Sodium [Moles/Vol] 132 mmol/L Low 133-145 [facility] Comment on above: Performed By: #### L 500.2500, L300.3900, L001.0705, L504.2610, L100.0100 #### [facility] [address] [place], [address] Urea nitrogen [Mass/Vol] 27 mg/dL High 4-19 [facility] Comment on above: Performed By: #### L 500.2500, L300.3900, L001.0705, L504.2610, L100.0100 #### [facility] [place], [address] Carbon dioxide, total [Moles /volume] in Central venous bloodOrdered By: Geoffrey Cowart on 05-05-2024 CO2 [Moles/Vol] 25.3 mmol/L 21.0-32.0 [facility] Chloride assayOrdered By: Jose Cowart on 05-05-2024 Chloride [Moles/Vol] 94 mmol/L Low 98-108 [facility] GFR/1.73 sq M.predicted kalani g non-blacks MDRD (S/P/Bld) [Vol rate/Area]Ordered By: Geoffrey Cowart on 05-05-2024 Estimated GFR (MDRD) Non-Af Amer 67 >60 [facility] Comment on above: mL/min/1.73m2 CKD-EP I Creatinine Equation (2020) Glomerular filtration rate ( GFR) estimation/1.73 sq m using serum, plasma, or whole bOrdered By: Geoffrey Cowart on 05-05-2024 GFR/1.73 sq M.predicted among non-blacks MDRD (S/P/Bld) [Vol rate/Area] 67 mL/min/{1.73_m2} >60 [facility] Comment on above: mL/min/1.73m2 CKD-EP I Creatinine Equation (2020) Potassium (Unsp spec) [Mass/ Vol]Ordered By: Geoffrey Cowart on 05-05-2024 Potassium [Moles/Vol] 4.7 mmol/L 3.3-5.1 [facility] Potassium measurement (mass/ volume)Ordered By: Geoffrey Cowart on 05-05-2024 Potassium (Unsp spec) [Mass/Vol] 4.7 mmol/L 3.3-5.1 [facility] Serum creatinine measurement (mass/volume)Ordered By: Geoffrey Cowart on 05-05-2024 Creatinine [Mass/Vol] 1.16 mg/dL 0.70-1.20 [facility] Serum glucose measurement (m ass/volume)Ordered By: Geoffrey Cowart on 03-18-2025 Glucose [Mass/Vol] 169 mg/dL High 70-99 [facility] Serum or plasma calcium jocelyn urement (mass/volume)Ordered By: Armondn Beam on 05-05-2024 Calcium [Mass/Vol] 11.4 mg/dL High 7.6-11.0 [facility] Serum or plasma urea nitroge n measurement (mass/volume)Ordered By: Zebulun Beam on 05-05-2024 Urea nitrogen [Mass/Vol] 27 mg/dL High 4-19 [facility] Sodium levelOrdered By: Zebu yuriy Beam on 05-05-2024 Sodium [Moles/Vol] 132 mmol/L Low 133-145 [facility] Culture, Anaerobic Any Sourc liza 05-03-2024 CUAN No growth in 5 days. Normal [facility] Comment on above: Performed By: #### L 500.2500, L300.3900, L001.0705, L504.2610, L100.0100 #### [facility] [address] [place], [address] Body Fluid Culton 05-01-2024 BFC No growth aerobically. Normal [facility] Comment on above: Performed By: #### L 500.2500, L300.3900, L001.0705, L504.2610, L100.0100 #### [facility] [address] [facility] [place], [address] Gram Stainon 04-29-2024 GS Centrifuged Specimen ? Culture performed on centrifuged specimen Gram Stain No organisms seen Rare White Blood Cells Normal [facility] Comment on above: Performed By: #### L 500.2500, L300.3900, L001.0705, L504.2610, L100.0100 #### [facility] [address] [facility] [place], [address] Prothrombin Time w/INRon INR Normal [facility] Comment on above: Result Comment: Canc elled via OM: Order cancelled - Patient discharged Performed By: #### L 500.2500, L300.3900, L001.0705, L504.2610, L100.0100 #### [facility] [address] [place], [address] PROTIME Normal 11.7-14.9 [facility] Comment on above: Result Comment: Canc elled via OM: Order cancelled - Patient discharged Performed By: #### L 500.2500, L300.3900, L001.0705, L504.2610, L100.0100 #### [facility] [address] [place], [address] Absolute lymphocyte countOrd ered By: Nba Seth on 04-28-2024 Lymphocytes Auto (Unsp spec) [#/Vol] 0.96 10*3/uL 0.83-4.51 [facility] Absolute neutrophil countOrd ered By: Nba Seth on 04-28-2024 Neutrophils (Bld) [#/Vol] 8.0 10*3/uL High 2.0-7.7 [facility] Anaerobic cultureOrdered By: Nba Seth on 04-28-2024 Bacteria identified Anaer cx Nom (Unsp spec) No growth in 5 days. [facility] Anion gap in Serum or Plasma Ordered By: Nba Seth on 04-28-2024 Anion gap [Moles/Vol] 12 mmol/L 5-15 [facility] Appearance (Body fld)Ordered By: Hubert Hastings on 04-28-2024 Body Fluid Appearance CLEAR [facility] Automated lymphocyte count a s percentage of total leukocytesOrdered By: Nba Seth on 04-28-2024 Lymphocytes/100 WBC Auto (Unsp spec) 9.6 % Low 19-41 [facility] BUN/creatinine ratioOrdered By: Nba Seth on 04-28-2024 Urea nitrogen/Creatinine [Mass ratio] 24.4 mg/mg High 10-20 [facility] Bacteria identified Anaer cx Nom (Unsp spec)Ordered By: Nba Seth on 04-28-2024 Anaerobic Culture No growth in 5 days. [facility] Basic Metabolic Profile (BMP )on 04-28-2024 BUN/CRE 24.4 RATIO High 10-20 [facility] Comment on above: Performed By: #### L 501.080 #### [facility] [address] [place], [address] Calcium [Mass/Vol] 10.2 mg/dL Normal 7.6-11.0 [facility] Comment on above: Performed By: #### L 501.080 #### [facility] [address] [place], [address] Chloride [Moles/Vol] 102 mmol/L Normal 98-108 [facility] Comment on above: Performed By: #### L 501.080 #### [facility] [address] [place], [address] CO2 [Moles/Vol] 23.2 mmol/L Normal 21.0-32.0 [facility] Comment on above: Performed By: #### L 501.080 #### [facility] [address] [place], [address] Creatinine [Mass/Vol] 0.99 mg/dL Normal 0.70-1.20 [facility] Comment on above: Performed By: #### L 501.080 #### [facility] [address] [place], [address] ECRCL 77.45 ml/min Normal 50-250 [facility] Comment on above: Performed By: #### L 501.080 #### [facility] [address] [place], [address] GAP 12 Normal 5-15 [facility] Comment on above: Performed By: #### L 501.080 #### [facility] [address] [place], [address] GFR/1.73 sq M.predicted among non-blacks MDRD (S/P/Bld) [Vol rate/Area] 80 mL/min/{1.73_m2} Normal >60 [facility] Comment on above: Result Comment: mL/m in/1.73m2 CKD-EPI Creatinine Equation (2020) Performed By: #### L 501.080 #### [facility] [address] [place], [address] Glucose [Mass/Vol] 136 mg/dL High 70-99 [facility] Comment on above: Performed By: #### L 501.080 #### [facility] [address] [place], [address] Potassium [Moles/Vol] 3.9 mmol/L Normal 3.3-5.1 [facility] Comment on above: Performed By: #### L 501.080 #### [facility] [address] [place], [address] Sodium [Moles/Vol] 137 mmol/L Normal 133-145 [facility] Comment on above: Performed By: #### L 501.080 #### [facility] [address] [place], [address] Urea nitrogen [Mass/Vol] 24 mg/dL High 4-19 [facility] Comment on above: Performed By: #### L 501.080 #### [facility] [address] [place], [address] Basophil percentageOrdered B y: Nba Seth on 04-28-2024 Basophils/100 WBC (Bld) 0.5 % 0-1 [facility] Bedside Glucoseon 04-28-2024 FINGERSTICK GLU 210 mg/dL High 74-106 [facility] Comment on above: Result Comment: KECIA ABDI OF PATIENT CARE PER NURSING PROTOCOL Performed By: #### L 500.2500, L300.3900, L001.0705, L504.2610, L100.0100 #### [facility] [address] [place], [address] FINGERSTICK GLU 154 mg/dL High 74-106 [facility] Comment on above: Result Comment: KECIA ABDI OF PATIENT CARE PER NURSING PROTOCOL Performed By: #### L 969.2969 #### [facility] [address] [place], [address] Body fluid appearance (nomin al result)Ordered By: Hubert Hastings on 04-28-2024 Appearance (Body fld) CLEAR [facility] Body fluid color determinati onOrdered By: Hubert Hastings on 04-28-2024 Color (Body fld) YELLOW [facility] Body fluid cultureOrdered By : Nba Seth on 04-28-2024 Body Fluid Culture No growth aerobically. [facility] Body fluid leukocytes count (number/volume)Ordered By: Hubert Hastings on 04-28-2024 WBC (Body fld) [#/Vol] 159 /mm3 [facility] Comment on above: Previous reported re sult: 0.179 10^3/uLEdited by: RENETTA on 04/28/24:1228 AMENDED REPORT 04/28/24 1228 WBC/BF previously reported as: 0.179 10^3/uL Body fluid lymphocytes/100 l eukocytesOrdered By: Hubert Hastings on 04-28-2024 Lymphocytes/100 WBC (Body fld) 42 % [facility] Body fluid macrophage countO rdered By: Hubert Hastings on 04-28-2024 Macrophages (Body fld) [#/Vol] 28 % [facility] Body fluid mononuclear cell countOrdered By: Hubert Hastings on 04-28-2024 Body Fluid Mononuclear WBCs 0.165 10^3/uL [facility] Body fluid mononuclear cell percentageOrdered By: Hubert Hastings on 04-28-2024 Mononuclear cells/100 WBC (Body fld) 92.2 % [facility] Body fluid segmented neutrop hils count (number/volume)Ordered By: Hubert Hastings on 04-28-2024 Segmented neutrophils (Body fld) [#/Vol] 9 % [facility] Body fluid specific gravityO rdered By: Nba Seth on 04-28-2024 Specific gravity (Body fld) [Rel density] 1.026 [facility] Body fluid total cell countO rdered By: Hubert Hastings on 04-28-2024 Cells Counted Total (Body fld) [#] 0.205 10^3/ul [facility] Comment on above: This is the Total Nu mber of Nucleated Cell Types in the Body Fluid. CBC W/Diff, Automatedon 04-18 Absolute Lymph 0.96 X10 3/uL Normal 0.83-4.51 [facility] Comment on above: Performed By: #### L 501.080 #### [facility] [address] [place], [address] Absolute Neut 8.0 X10 3/uL High 2.0-7.7 [facility] Comment on above: Performed By: #### L 501.080 #### [facility] [address] [place], [address] Basophils/100 WBC (Bld) 0.5 % Normal 0-1 [facility] Comment on above: Performed By: #### L 501.080 #### [facility] [address] [place], [address] Eosinophils/100 WBC (Bld) 2.1 % Normal 0-5 [facility] Comment on above: Performed By: #### L 501.080 #### [facility] [address] [place], [address] Erythrocyte distribution width (RBC) [Ratio] 16.1 % High 11.6-14.6 [facility] Comment on above: Performed By: #### L 501.080 #### [facility] [address] [place], [address] Hematocrit (Bld) [Volume fraction] 42.3 % Normal 40-54 [facility] Comment on above: Performed By: #### L 501.080 #### [facility] [address] [place], [address] Hemoglobin (Bld) [Mass/Vol] 13.5 g/dL Normal 13.0-16.5 [facility] Comment on above: Performed By: #### L 501.080 #### [facility] [address] [place], [address] IG% 0.500 Normal 0.0-0.9 [facility] Comment on above: Result Comment: IG% - Immature Granulocytes (promyelocytes, myelocytes and metamyelocytes) > 1% indicates that a LEFT SHIFT is Present. Performed By: #### L 501.080 #### [facility] [address] [place], [address] Lymphocytes/100 WBC (Bld) 9.6 % Low 19-41 [facility] Comment on above: Performed By: #### L 501.080 #### [facility] [address] [place], [address] MCH (RBC) [Entitic mass] 25.8 pg Low 27.0-32.0 [facility] Comment on above: Performed By: #### L 501.080 #### [facility] [address] [place], [address] MCHC (RBC) [Mass/Vol] 31.9 g/dL Low 32-36 [facility] Comment on above: Performed By: #### L 501.080 #### [facility] [address] [place], [address] MCV (RBC) [Entitic vol] 80.9 fL Normal 80-94 [facility] Comment on above: Performed By: #### L 501.080 #### [facility] [address] [place], [address] Monocytes/100 WBC (Bld) 7.6 % Normal 0-10 [facility] Comment on above: Performed By: #### L 501.080 #### [facility] [address] [place], [address] Neutrophils/100 WBC (Bld) 79.7 % High 47-70 [facility] Comment on above: Performed By: #### L 501.080 #### [facility] [address] [place], [address] Nucleated RBC (Bld) [#/Vol] 0 10*3/uL Normal 0-5 [facility] Comment on above: Performed By: #### L 501.080 #### [facility] [address] [place], [address] Platelet mean volume (Bld) [Entitic vol] 10.5 fL Normal 6.2-12.0 [facility] Comment on above: Performed By: #### L 501.080 #### [facility] [address] [place], [address] Platelets (Bld) [#/Vol] 218 10*3/uL Normal 150-450 [facility] Comment on above: Performed By: #### L 501.080 #### [facility] [address] [place], [address] RBC (Bld) [#/Vol] 5.23 10*6/uL Normal 4.6-6.2 [facility] Comment on above: Performed By: #### L 501.080 #### [facility] [address] [place], [address] RDW SD 46.9 fl High 35.1-43.9 [facility] Comment on above: Performed By: #### L 501.080 #### [facility] [address] [place], [address] WBC (Bld) [#/Vol] 10.0 10*3/uL Normal 4.4-11.0 [facility] Comment on above: Performed By: #### L 501.080 #### [facility] [address] [place], [address] Carbon dioxide, total [Moles /volume] in Central venous bloodOrdered By: Nba Seth on 04-28-2024 CO2 [Moles/Vol] 23.2 mmol/L 21.0-32.0 [facility] Cells Counted Total (Body fl d) [#]Ordered By: Hubert Hastings on 04-28-2024 Body Fluid Total Cells Counted 0.205 10^3/ul [facility] Comment on above: This is the Total Nu mber of Nucleated Cell Types in the Body Fluid. 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 No pneumothorax. Reading Location[facility] CC: [facility] J[employer]EE DEVELOPER-C Evelia Gil; Dr. Abhay Keene MD [employer] Electrician: Signed Normal [facility] Chloride assayOrdered By: Yogesh Seth on 04-28-2024 Chloride [Moles/Vol] 102 mmol/L 98-108 [facility] Color (Body fld)Ordered By: Hubert Hastings on 04-28-2024 Body Fluid Color YELLOW [facility] Cytology report Cyto stain D oc (Body fld)Ordered By: Nba Seth on 04-28-2024 Miscellaneous Cytology SEE PATHOLOGY REPORT [facility] Comment on above: Specimen submitted t o Anatomical Pathology Department for testing. Cytology report of Body flui d Cyto stainOrdered By: Nba Seth on 04-28-2024 Cytology report Cyto stain Doc (Body fld) SEE PATHOLOGY REPORT [facility] Comment on above: Specimen submitted t o Anatomical Pathology Department for testing. Cytology, Body Fluid / CSFon 04-28-2024 CYTOLOGY,BF/CSF SEE PATHOLOGY REPORT Normal [facility] Comment on above: Order Comment: Order Date: 04/28/24 Result Comment: Spec imen submitted to Anatomical Pathology Department for testing. Performed By: #### L 500.2500, L300.3900, L001.0705, L504.2610, L100.0100 #### [facility] [address] 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 Protocol: Dose Management Condition: Saturday Dose/Route: 4 [...] 3RF Referrals / Follow Up: Evelia Gil, [employer]EL[employer] [Primary Care Provider] - Within 1 Week (Call to confirm appointment) Disposition Disposition (needs filled in before D/C Order can be placed): Home, Self Care 04/28/24 1244 Luis Nieto DO CC: VIKRAM J2EE DEVELOPERCash Gil; Dr. Hubert Hastings DO; Dr. Nba Seth MD Signed Normal [facility] Eosinophil percentageOrdered By: Nba Seth on 04-28-2024 Eosinophils/100 WBC (Bld) 2.1 % 0-5 [facility] Erythrocyte distribution wid th ratioOrdered By: Nba Seth on 04-28-2024 Erythrocyte distribution width (RBC) [Ratio] 16.1 % High 11.6-14.6 [facility] Erythrocyte distribution wid th standard deviationOrdered By: Nba Seth on 04-28-2024 Erythrocyte distribution width (RBC) [Entitic vol] 46.9 fL High 35.1-43.9 [facility] Erythrocyte distribution width (RBC) [Ratio] 46.9 fl High 35.1-43.9 [facility] Estimation of creatinine sami aranceOrdered By: Nba Seth on 04-28-2024 Estimated Creatinine Clearance Calc 77.45 ml/min 50-250 [facility] GFR/1.73 sq M.predicted kalani g non-blacks MDRD (S/P/Bld) [Vol rate/Area]Ordered By: Nba Seth on 04-28-2024 Estimated GFR (MDRD) Non-Af Amer 80 >60 [facility] Comment on above: mL/min/1.73m2 CKD-EP I Creatinine Equation (2020) Glomerular filtration rate ( GFR) estimation/1.73 sq m using serum, plasma, or whole bOrdered By: Nba Seth on 04-28-2024 GFR/1.73 sq M.predicted among non-blacks MDRD (S/P/Bld) [Vol rate/Area] 80 mL/min/{1.73_m2} >60 [facility] Comment on above: mL/min/1.73m2 CKD-EP I Creatinine Equation (2020) Glucose measurement at bedsi deOrdered By: Luis Nieto on 04-28-2024 Bedside Glucose (Misc Panel) 210 mg/dL High 74-106 [facility] Comment on above: MANAGEMENT OF PATIEN T CARE PER NURSING PROTOCOL Glucose [Mass/Vol] 210 mg/dL High 74-106 [facility] Comment on above: MANAGEMENT OF PATIEN T CARE PER NURSING PROTOCOL Glucose, Body Fluidon 2024 GLUC, BODY FLD 148 mg/dL Normal Not Establ. [facility] Comment on above: Performed By: #### L 500.2500, L300.3900, L001.0705, L504.2610, L100.0100 #### [facility] [address] [place], [address] Glucose, body fluidOrdered B y: Nba eSth on 04-28-2024 Body Fluid Glucose 148 mg/dL Not Establ. [facility] Gram stainOrdered By: Arelis Seth on 04-28-2024 Microscopic observation Gram stain Nom (Unsp spec) [facility] Hematocrit Auto (Bld) [Volum e fraction]Ordered By: Nba Seth on 04-28-2024 Hematocrit (Bld) [Volume fraction] 42.3 % 40-54 [facility] Hemoglobin measurementOrdere d By: Nba Seth on 04-28-2024 Hemoglobin (Bld) [Mass/Vol] 13.5 g/dL 13.0-16.5 [facility] Immature granulocytes/100 WB C Auto (Bld)Ordered By: Nba Seth on 04-28-2024 Immature granulocytes/100 WBC (Bld) 0.500 % 0.0-0.9 [facility] Comment on above: IG% - Immature Granu locytes (promyelocytes, myelocytes and metamyelocytes) > 1% indicates that a LEFT SHIFT is Present. International normalized rat io (INR) calculationOrdered By: Nba Seth on 04-28-2024 INR Coag (Bld) [Relative time] 1.4 {INR} [facility] LDH,Body Fluidon 04-28-2024 LDH,BF 92 Units/L Normal Not Establ. [facility] Comment on above: Performed By: #### L 500.2500, L300.3900, L001.0705, L504.2610, L100.0100 #### [facility] [address] [place], [address] Lymphocytes Auto (Unsp spec) [#/Vol]Ordered By: Nba Seth on 04-28-2024 Lymphocytes (Bld) [#/Vol] 0.96 10*3/uL 0.83-4.51 [facility] Lymphocytes/100 WBC (Body fl d)Ordered By: Hubert Hastings on 04-28-2024 Body Fluid Lymphocytes 42 % [facility] Lymphocytes/100 WBC Auto (Un sp spec)Ordered By: Nba Seth on 04-28-2024 Lymphocytes/100 WBC (Bld) 9.6 % Low 19-41 [facility] MCV (mean corpuscular volume ) determinationOrdered By: Nba Seth on 04-28-2024 MCV (RBC) [Entitic vol] 80.9 fL 80-94 [facility] Macrophages (Body fld) [#/Vo l]Ordered By: Hubert Hastings on 04-28-2024 Body Fluid Macrophages 28 % [facility] Mean corpuscular hemoglobin (MCH) determinationOrdered By: Nba Seth on 04-28-2024 MCH (RBC) [Entitic mass] 25.8 pg Low 27.0-32.0 [facility] Mean corpuscular hemoglobin concentration (MCHC) determinationOrdered By: Nba Seth on 04-28-2024 MCHC (RBC) [Mass/Vol] 31.9 g/dL Low 32-36 [facility] Mean platelet volume determi nationOrdered By: Nba Seth on 04-28-2024 Platelet mean volume (Bld) [Entitic vol] 10.5 fL 6.2-12.0 [facility] Monocyte detectionOrdered By : Hubert Hastings on 04-28-2024 Body Fluid Monocytes 21 % [facility] Monocytes/100 WBC (Bld) 21 % [facility] Monocyte percentageOrdered B y: Nba Seth on 04-28-2024 Monocytes/100 WBC (Bld) 7.6 % 0-10 [facility] Mononuclear cells/100 WBC (B alma fld)Ordered By: Hubert Hastings on 04-28-2024 Body Fluid Mononuclear WBCs (%) 92.2 % [facility] Neutrophil percentageOrdered By: Nba Seth on 04-28-2024 Neutrophils/100 WBC (Bld) 79.7 % High 47-70 [facility] No Panel InformationOrdered By: Hubert Hastings on [...] cells . Body Fluid RBC 656 /mm3 [facility] Nucleated red blood cell per centageOrdered By: Nba Seth on 04-28-2024 Nucleated RBC/100 WBC (Bld) [Ratio] 0 % 0-5 [facility] Pathologist interpretation ( Body fld) [Interp]Ordered By: Hubert Hastings on 04-28-2024 Body Fluid Pathologist Comment May follow [facility] Pathologist interpretation o f Body fluid testsOrdered By: Hubert Hastings on 04-28-2024 Pathologist interpretation (Body fld) [Interp] Reviewed [facility] Comment on above: Previous reported re sult: May follow Edited by: INGRID on 06/01/24:1405SEE REPORT IN PATIENT'S EMR AMENDED REPORT 06/01/24 1405 PATH COMM/BF previously reported as: May follow Platelet countOrdered By: Yogesh Seth on 04-28-2024 Platelets (Bld) [#/Vol] 218 10*3/uL 150-450 [facility] Polymorphonuclear (PMN) leuk ocyte countOrdered By: Hubert Hastings on 04-28-2024 Body Fluid Polynuclear WBCs (%) 7.8 % [facility] Polymorphonuclear cells (Bod y fld) [#/Vol]Ordered By: Hubert Hastings on 04-28-2024 Body Fluid Polynuclear WBCs (#) 0.014 10^3/uL [facility] Potassium (Unsp spec) [Mass/ Vol]Ordered By: Nba Seth on 04-28-2024 Potassium [Moles/Vol] 3.9 mmol/L 3.3-5.1 [facility] Potassium measurement (mass/ volume)Ordered By: Nba Seth on 04-28-2024 Potassium (Unsp spec) [Mass/Vol] 3.9 mmol/L 3.3-5.1 [facility] Protein, Body Fluidon 2024 Protein [Mass/Vol] 3.8 g/dL Normal Not Establ. [facility] Comment on above: Performed By: #### L 500.2500, L300.3900, L001.0705, L504.2610, L100.0100 #### [facility] [address] [place], [address] Prothrombin Time w/INRon INR Coag (PPP) [Relative time] 1.4 {INR} Normal [facility] Comment on above: Performed By: #### L 501.080 #### [facility] [address] [place], [address] PT Coag (PPP) [Time] 17.3 s High 11.7-14.9 [facility] Comment on above: Performed By: #### L 501.080 #### [facility] [address] [place], [address] Prothrombin timeOrdered By: Nba Seth on 04-28-2024 PT Coag (PPP) [Time] 17.3 s High 11.7-14.9 [facility] RBC Auto (Bld) [#/Vol]Ordere d By: Nba Seth on 04-28-2024 RBC (Bld) [#/Vol] 5.23 10*6/uL 4.6-6.2 [facility] Segmented neutrophils (Body fld) [#/Vol]Ordered By: Hubert Hastings on 04-28-2024 Body Fluid Neutrophils 9 % [facility] Serum creatinine measurement (mass/volume)Ordered By: Nba Seth on 04-28-2024 Creatinine [Mass/Vol] 0.99 mg/dL 0.70-1.20 [facility] Serum glucose measurement (m ass/volume)Ordered By: Nba Seth on 04-28-2024 Glucose [Mass/Vol] 136 mg/dL High 70-99 [facility] Serum or plasma calcium jocelyn urement (mass/volume)Ordered By: Nba Rolo on 04-28-2024 Calcium [Mass/Vol] 10.2 mg/dL 7.6-11.0 [facility] Serum or plasma urea nitroge n measurement (mass/volume)Ordered By: Nba Rolo on 04-28-2024 Urea nitrogen [Mass/Vol] 24 mg/dL High 4-19 [facility] Sodium levelOrdered By: Kayleighmichael felix Seth on 04-28-2024 Sodium [Moles/Vol] 137 mmol/L 133-145 [facility] Special Stain Group IIon Special Stain Group II Patient Age/Sex Location Account Attending Physician BLAYNE MORALES 74/M [facility] [id number] Dr. Luis Nieto, Specimen: [id number] Received: 04/28/24 Status: BEATRICE Frederick Num: [id number] Spec Type: Fluid Subm Dr: Dr. Luis [...] cytology preparation including cell block. 04/28/2024 CPT: 41521,84198, TC:4 Signed (signature on file) Dr. Yogi Lind MD 05/02/24 1607 Normal [facility] Comment on above: Performed By: #### L 500.2500, L300.3900, L001.0705, L504.2610, L100.0100 #### [facility] [address] [facility] [place], [address] Specific [place], Body Fluid on 04-28-2024 SP.GR./BF 1.026 Normal [facility] Comment on above: Performed By: #### L 500.2500, L300.3900, L001.0705, L504.2610, L100.0100 #### [facility] [address] [place], [place], [address] Specific gravity (Body fld) [Rel density]Ordered By: Nba Seth on 04-28-2024 Body Fluid Specific [place] 1.026 [facility] Specimen source Nom (Body fl d)Ordered By: Hubert Hastings on 04-28-2024 Body Fluid Source PLEURAL FLUID [facility] Specimen source identificati on of body fluidOrdered By: Hubert Hastings on 04-28-2024 Specimen source Nom (Body fld) PLEURAL FLUID [facility] Thoracentesis W USon 025 Thoracentesis W [facility] [address] [place], [place] [address] Thoracentesis W MR#: [id number] Acct: [id number] Name: BLAYNE MORALES Rep #: [id number] : 1950 M 74 From: Abhay kilgore MD PCP: Evelia Gil [facility], [employer]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 Informed consent was obtained. The overlying skin was prepped and draped in usual sterile fashion. Following local anesthetic application, a 5 Hungarian catheter was placed into the right hemithorax. [...] IMPRESSION: Successful right ultrasound-guided thoracentesis. Reading Location: [place] [address] CC: [facility] [employer] DEVELOPER[employer] Evelia Gil; Dr. Hubert Hastings DO Diesel Electrician: Signed Normal [facility] WBC (Body fld) [#/Vol]Ordere d By: Hubert Hastings on 04-28-2024 Body Fluid WBC 159 /mm3 [facility] Comment on above: Previous reported re sult: 0.179 10^3/uLEdited by: RENETTA on 04/28/24:1228 AMENDED REPORT 04/28/24 1228 WBC/BF previously reported as: 0.179 10^3/uL White blood cell (WBC) count Ordered By: Nba Seth on 04-28-2024 WBC (Bld) [#/Vol] 10.0 10*3/uL 4.4-11.0 [facility] Activated partial thrombopla stin time (aPTT) in platelet poor plasma by coagulation aOrdered By: Hubert Hastings on 04-27-2024 aPTT Coag (PPP) [Time] 35.5 s 24.1-36.2 [facility] Basic Metabolic Profile (BMP )on 04-27-2024 BUN/CRE 20.7 RATIO High 10-20 [facility] Comment on above: Performed By: #### L 500.2500, L300.3900, L001.0705, L504.2610, L100.0100 #### [facility] [address] [place], [address] Calcium [Mass/Vol] 10.7 mg/dL Normal 7.6-11.0 [facility] Comment on above: Performed By: #### L 500.2500, L300.3900, L001.0705, L504.2610, L100.0100 #### [facility] [address] [place], [address] Chloride [Moles/Vol] 102 mmol/L Normal 98-108 [facility] Comment on above: Performed By: #### L 500.2500, L300.3900, L001.0705, L504.2610, L100.0100 #### [facility] [address] [place], [address] CO2 [Moles/Vol] 24.3 mmol/L Normal 21.0-32.0 [facility] Comment on above: Performed By: #### L 500.2500, L300.3900, L001.0705, L504.2610, L100.0100 #### [facility] [address] [place], [address] Creatinine [Mass/Vol] 0.97 mg/dL Normal 0.70-1.20 [facility] Comment on above: Performed By: #### L 500.2500, L300.3900, L001.0705, L504.2610, L100.0100 #### [facility] [address] [place], [address] ECRCL 79.05 ml/min Normal 50-250 [facility] Comment on above: Performed By: #### L 500.2500, L300.3900, L001.0705, L504.2610, L100.0100 #### [facility] [address] [place], [address] GAP 13 Normal 5-15 [facility] Comment on above: Performed By: #### L 500.2500, L300.3900, L001.0705, L504.2610, L100.0100 #### [facility] [address] [place], [address] GFR/1.73 sq M.predicted among non-blacks MDRD (S/P/Bld) [Vol rate/Area] 83 mL/min/{1.73_m2} Normal >60 [facility] Comment on above: Result Comment: mL/m in/1.73m2 CKD-EPI Creatinine Equation (2020) Performed By: #### L 500.2500, L300.3900, L001.0705, L504.2610, L100.0100 #### [facility] [address] [place], [address] Glucose [Mass/Vol] 153 mg/dL High 70-99 [facility] Comment on above: Performed By: #### L 500.2500, L300.3900, L001.0705, L504.2610, L100.0100 #### [facility] [address] [place], [address] Potassium [Moles/Vol] 4.1 mmol/L Normal 3.3-5.1 [facility] Comment on above: Performed By: #### L 500.2500, L300.3900, L001.0705, L504.2610, L100.0100 #### [facility] [address] [place], [address] Sodium [Moles/Vol] 139 mmol/L Normal 133-145 [facility] Comment on above: Performed By: #### L 500.2500, L300.3900, L001.0705, L504.2610, L100.0100 #### [facility] [address] [place], [address] Urea nitrogen [Mass/Vol] 20 mg/dL High 4-19 [facility] Comment on above: Performed By: #### L 500.2500, L300.3900, L001.0705, L504.2610, L100.0100 #### [facility] [address] [place], [address] Bedside Glucoseon 04-27-2024 FINGERSTICK GLU 166 mg/dL High 74-106 [facility] Comment on above: Result Comment: KECIA GEMENT OF PATIENT CARE PER NURSING PROTOCOL Performed By: #### L 500.2500, L300.3900, L001.0705, L504.2610, L100.0100 #### [facility] [address] [place], [address] FINGERSTICK GLU 174 mg/dL High 74-106 [facility] Comment on above: Result Comment: KECIA GEMENT OF PATIENT CARE PER NURSING PROTOCOL Performed By: #### L 500.2500, L300.3900, L001.0705, L504.2610, L100.0100 #### [facility] [address] [place], [address] FINGERSTICK GLU 194 mg/dL High 74-106 [facility] Comment on above: Result Comment: KECIA GEMENT OF PATIENT CARE PER NURSING PROTOCOL Performed By: #### L 300.3900 #### [facility] [address] [place], [address] FINGERSTICK GLU 169 mg/dL High 74-106 [facility] Comment on above: Result Comment: KECIA GEMENT OF PATIENT CARE PER NURSING PROTOCOL Performed By: #### L 300.3900 #### [facility] [address] [place], [address] CBC W/Diff, Automatedon 03- 0-2024 Absolute Lymph 0.96 X10 3/uL Normal 0.83-4.51 [facility] Comment on above: Performed By: #### L 500.2500, L300.3900, L001.0705, L504.2610, L100.0100 #### [facility] [address] [place], [address] Absolute Neut 7.6 X10 3/uL Normal 2.0-7.7 [facility] Comment on above: Performed By: #### L 500.2500, L300.3900, L001.0705, L504.2610, L100.0100 #### [facility] [address] [place], [address] Basophils/100 WBC (Bld) 0.5 % Normal 0-1 [facility] Comment on above: Performed By: #### L 500.2500, L300.3900, L001.0705, L504.2610, L100.0100 #### [facility] [address] [place], [address] Eosinophils/100 WBC (Bld) 2.4 % Normal 0-5 [facility] Comment on above: Performed By: #### L 500.2500, L300.3900, L001.0705, L504.2610, L100.0100 #### [facility] [address] [place], [address] Erythrocyte distribution width (RBC) [Ratio] 16.5 % High 11.6-14.6 [facility] Comment on above: Performed By: #### L 500.2500, L300.3900, L001.0705, L504.2610, L100.0100 #### [facility] [address] [place], [address] Hematocrit (Bld) [Volume fraction] 45.3 % Normal 40-54 [facility] Comment on above: Performed By: #### L 500.2500, L300.3900, L001.0705, L504.2610, L100.0100 #### [facility] [address] [place], [address] Hemoglobin (Bld) [Mass/Vol] 14.2 g/dL Normal 13.0-16.5 [facility] Comment on above: Performed By: #### L 500.2500, L300.3900, L001.0705, L504.2610, L100.0100 #### [facility] [address] [place], [address] IG% 0.600 Normal 0.0-0.9 [facility] Comment on above: Result Comment: IG% - Immature Granulocytes (promyelocytes, myelocytes and metamyelocytes) > 1% indicates that a LEFT SHIFT is Present. Performed By: #### L 500.2500, L300.3900, L001.0705, L504.2610, L100.0100 #### [facility] [address] [place], [address] Lymphocytes/100 WBC (Bld) 10.0 % Low 19-41 [facility] Comment on above: Performed By: #### L 500.2500, L300.3900, L001.0705, L504.2610, L100.0100 #### [facility] [address] [place], [address] MCH (RBC) [Entitic mass] 25.4 pg Low 27.0-32.0 [facility] Comment on above: Performed By: #### L 500.2500, L300.3900, L001.0705, L504.2610, L100.0100 #### [facility] [address] [place], [address] MCHC (RBC) [Mass/Vol] 31.3 g/dL Low 32-36 [facility] Comment on above: Performed By: #### L 500.2500, L300.3900, L001.0705, L504.2610, L100.0100 #### [facility] [address] [place], [address] MCV (RBC) [Entitic vol] 81.0 fL Normal 80-94 [facility] Comment on above: Performed By: #### L 500.2500, L300.3900, L001.0705, L504.2610, L100.0100 #### [facility] [address] [place], [address] Monocytes/100 WBC (Bld) 7.3 % Normal 0-10 [facility] Comment on above: Performed By: #### L 500.2500, L300.3900, L001.0705, L504.2610, L100.0100 #### [facility] [address] [place], [address] Neutrophils/100 WBC (Bld) 79.2 % High 47-70 [facility] Comment on above: Performed By: #### L 500.2500, L300.3900, L001.0705, L504.2610, L100.0100 #### [facility] [address] [place], [address] Nucleated RBC (Bld) [#/Vol] 0 10*3/uL Normal 0-5 [facility] Comment on above: Performed By: #### L 500.2500, L300.3900, L001.0705, L504.2610, L100.0100 #### [facility] [address] [place], [address] Platelet mean volume (Bld) [Entitic vol] 10.5 fL Normal 6.2-12.0 [facility] Comment on above: Performed By: #### L 500.2500, L300.3900, L001.0705, L504.2610, L100.0100 #### [facility] [address] [place], [address] Platelets (Bld) [#/Vol] 235 10*3/uL Normal 150-450 [facility] Comment on above: Performed By: #### L 500.2500, L300.3900, L001.0705, L504.2610, L100.0100 #### [facility] [address] [place], [address] RBC (Bld) [#/Vol] 5.59 10*6/uL Normal 4.6-6.2 [facility] Comment on above: Performed By: #### L 500.2500, L300.3900, L001.0705, L504.2610, L100.0100 #### [facility] [address] [place], [address] RDW SD 47.3 fl High 35.1-43.9 [facility] Comment on above: Performed By: #### L 500.2500, L300.3900, L001.0705, L504.2610, L100.0100 #### [facility] [address] [place], [address] WBC (Bld) [#/Vol] 9.6 10*3/uL Normal 4.4-11.0 [facility] Comment on above: Performed By: #### L 500.2500, L300.3900, L001.0705, L504.2610, L100.0100 #### [facility] [address] [place], [place], [address] Echocardiogram study reportO rdered By: Deedee Torres on 04-27-2024 Study report [facility] [address] [place] [address] Echo Complete 04/27/24 1002 MR#: [id number] Acct: [id number] Name: BLAYNE MORALES Rep #:[id number] : 1950 74 From: Deedee jaimes MD [...] 1339 Date _ Deedee Torres MD CC: [facility] IRENE Gil; Dr. Hubert Hastings DO; Dr. Luis Nieto DO ~ Date Dictated: 04/27/24 1002 Date Transcribed: 04/27/24 133 Diesel Electrician: Signed [facility] Work Phone: Electrocardiogram reportOrde red By: Blayne Cedillo on 04-27-2024 EKG study [facility] [address] [place] [address] 12 Lead EKG 04/25/24 1701 MR#: [id number] Acct: [id number] Name: BLAYNE MORALES Rep #:[id number] : 1950 74 From: Blayne aguirre MD Attending Dr: Dr. Luis Nieto DO Status: ADM IN Ordering Dr: Cindy Mendez DO Date: 10/12 Location: [facility] Sex: M C Admitted: 04/25/24 Test [...] deviation Abnormal ECG Confirmed by Blayne Cedillo ([id number]), manager editorial MARSHA STAPLETON ([id number]) on 04/27/2024 10:56:52 AM Referred By: Hubert Hastings Confirmed By: Blayne Cedillo 04/27/24 1056 Date _ Blayne Cedillo MD CC: [facility] IRENE Gil; Dr. Hubert Hastings DO; Dr. Luis Nieto DO; Dr. Cindy Mendez DO ~ Signed [facility] Other Phone: LDHon 04-27-2024 LDH 238 U/L Normal 87-241 [facility] Comment on above: Result Comment: Hemo lysis present, Results??could be affected. ?? Performed By: #### L 500.2500, L300.3900, L001.0705, L504.2610, L100.0100 #### [facility] [address] [place], [address] Lactate dehydrogenase (LDH) measurementOrdered By: Nba Seth on 04-27-2024 LDH [Catalytic activity/Vol] 238 U/L 87-241 [facility] Comment on above: Hemolysis present, R esults could be affected. Partial Thromboplast Timeon 04-27-2024 aPTT Coag (Bld) [Time] 35.5 s Normal 24.1-36.2 [facility] Comment on above: Performed By: #### L 501.080 #### [facility] [address] [place], [address] Protein, Totalon 04-27-2024 T PROT 7.5 g/dL Normal 5.9-8.4 [facility] Comment on above: Performed By: #### L 500.2500, L300.3900, L001.0705, L504.2610, L100.0100 #### [facility] [address] [place], [address] Prothrombin Time w/INRon INR Coag (PPP) [Relative time] 1.7 {INR} Normal [facility] Comment on above: Performed By: #### L 501.080 #### [facility] [address] [place], [address] PT Coag (PPP) [Time] 20.0 s High 11.7-14.9 [facility] Comment on above: Performed By: #### L 501.080 #### [facility] [address] [place], [address] INR Coag (PPP) [Relative time] 2.7 {INR} Normal [facility] Comment on above: Performed By: #### L 500.2500, L300.3900, L001.0705, L504.2610, L100.0100 #### [facility] [address] [place], [address] PT Coag (PPP) [Time] 29.6 s High 11.7-14.9 [facility] Comment on above: Performed By: #### L 500.2500, L300.3900, L001.0705, L504.2610, L100.0100 #### [facility] [address] [place], [address] Total proteinOrdered By: Kayleigh Seth on 04-27-2024 Protein [Mass/Vol] 7.5 g/dL 5.9-8.4 [facility] aPTT Coag (PPP) [Time]Ordere d By: Hubert Hastings on 04-27-2024 aPTT Coag (Bld) [Time] 35.5 s 24.1-36.2 [facility] Basic Metabolic Profile (BMP )on 04-26-2024 BUN/CRE 18.3 RATIO Normal 10-20 [facility] Comment on above: Performed By: #### L 500.3400, L504.2610 #### [facility] [address] [place], [address] Calcium [Mass/Vol] 10.8 mg/dL Normal 7.6-11.0 [facility] Comment on above: Performed By: #### L 500.3400, L504.2610 #### [facility] [address] [place], [address] Chloride [Moles/Vol] 98 mmol/L Normal 98-108 [facility] Comment on above: Performed By: #### L 500.3400, L504.2610 #### [facility] [address] [place], [address] CO2 [Moles/Vol] 22.8 mmol/L Normal 21.0-32.0 [facility] Comment on above: Performed By: #### L 500.3400, L504.2610 #### [facility] [address] [place], [address] Creatinine [Mass/Vol] 0.98 mg/dL Normal 0.70-1.20 [facility] Comment on above: Performed By: #### L 500.3400, L504.2610 #### [facility] [address] [place], [address] ECRCL 78.24 ml/min Normal 50-250 [facility] Comment on above: Performed By: #### L 500.3400, L504.2610 #### [facility] [address] [place], [address] GAP 12 Normal 5-15 [facility] Comment on above: Performed By: #### L 500.3400, L504.2610 #### [facility] [address] [place], [address] GFR/1.73 sq M.predicted among non-blacks MDRD (S/P/Bld) [Vol rate/Area] 82 mL/min/{1.73_m2} Normal >60 [facility] Comment on above: Result Comment: mL/m in/1.73m2 CKD-EPI Creatinine Equation (2020) Performed By: #### L 500.3400, L504.2610 #### [facility] [address] [place], [address] Glucose [Mass/Vol] 158 mg/dL High 70-99 [facility] Comment on above: Performed By: #### L 500.3400, L504.2610 #### [facility] [address] [place], [address] Potassium [Moles/Vol] 4.2 mmol/L Normal 3.3-5.1 [facility] Comment on above: Performed By: #### L 500.3400, L504.2610 #### [facility] [address] [place], [address] Sodium [Moles/Vol] 133 mmol/L Normal 133-145 [facility] Comment on above: Performed By: #### L 500.3400, L504.2610 #### [facility] [address] [place], [address] Urea nitrogen [Mass/Vol] 18 mg/dL Normal 4-19 [facility] Comment on above: Performed By: #### L 500.3400, L504.2610 #### [facility] [address] [place], [address] Bedside Glucoseon 04-26-2024 FINGERSTICK GLU 200 mg/dL High 74-106 [facility] Comment on above: Result Comment: KECIA GEMENT OF PATIENT CARE PER NURSING PROTOCOL Performed By: #### L 500.2500, L300.3900, L001.0705, L504.2610, L100.0100 #### [facility] [address] [place], [address] FINGERSTICK GLU 217 mg/dL High 74-106 [facility] Comment on above: Result Comment: KECIA GEMENT OF PATIENT CARE PER NURSING PROTOCOL Performed By: #### L 501.080 #### [facility] [address] [place], [address] FINGERSTICK GLU 208 mg/dL High 74-106 [facility] Comment on above: Result Comment: KECIA GEMENT OF PATIENT CARE PER NURSING PROTOCOL Performed By: #### L 501.080 #### [facility] [address] [place], [address] FINGERSTICK GLU 168 mg/dL High 74-106 [facility] Comment on above: Result Comment: KECIA GEMENT OF PATIENT CARE PER NURSING PROTOCOL Performed By: #### L 501.080 #### [facility] [address] [place], [address] CBC-Complete Blood Cnt No Di ffon 04-26-2024 Erythrocyte distribution width (RBC) [Ratio] 16.3 % High 11.6-14.6 [facility] Comment on above: Performed By: #### L 500.3400, L504.2610 #### [facility] [address] [place], [address] Hematocrit (Bld) [Volume fraction] 45.0 % Normal 40-54 [facility] Comment on above: Performed By: #### L 500.3400, L504.2610 #### [facility] [address] [place], [address] Hemoglobin (Bld) [Mass/Vol] 14.6 g/dL Normal 13.0-16.5 [facility] Comment on above: Performed By: #### L 500.3400, L504.2610 #### [facility] [address] [place], [address] MCH (RBC) [Entitic mass] 25.8 pg Low 27.0-32.0 [facility] Comment on above: Performed By: #### L 500.3400, L504.2610 #### [facility] [address] [place], [address] MCHC (RBC) [Mass/Vol] 32.4 g/dL Normal 32-36 [facility] Comment on above: Performed By: #### L 500.3400, L504.2610 #### [facility] [address] [place], [address] MCV (RBC) [Entitic vol] 79.5 fL Low 80-94 [facility] Comment on above: Performed By: #### L 500.3400, L504.2610 #### [facility] [address] [place], [address] Platelet mean volume (Bld) [Entitic vol] 10.1 fL Normal 6.2-12.0 [facility] Comment on above: Performed By: #### L 500.3400, L504.2610 #### [facility] [address] [place], [address] Platelets (Bld) [#/Vol] 241 10*3/uL Normal 150-450 [facility] Comment on above: Performed By: #### L 500.3400, L504.2610 #### [facility] [address] [place], [address] RBC (Bld) [#/Vol] 5.66 10*6/uL Normal 4.6-6.2 [facility] Comment on above: Performed By: #### L 500.3400, L504.2610 #### [facility] [address] [place], [address] RDW SD 46.0 fl High 35.1-43.9 [facility] Comment on above: Performed By: #### L 500.3400, L504.2610 #### [facility] [address] [place], [address] WBC (Bld) [#/Vol] 10.4 10*3/uL Normal 4.4-11.0 [facility] Comment on above: Performed By: #### L 500.3400, L504.2610 #### [facility] [address] [place], [address] Hemoglobin A1con 04-26-2024 HbA1c (Bld) [Mass fraction] 7.0 % Normal <=5.6 [facility] Comment on above: Performed By: #### L 500.3400, L504.2610 #### [facility] [address] [place], [address] Hemoglobin A1c percentageOrd ered By: Hubert Hastings on 04-26-2024 HbA1c (Bld) [Mass fraction] 7.0 % >5.7 [facility] Prothrombin Time w/INRon INR Coag (PPP) [Relative time] 3.4 {INR} Normal [facility] Comment on above: Performed By: #### L 500.3400, L504.2610 #### [facility] [address] [facility] [place], [address] PT Coag (PPP) [Time] 34.7 s High 11.7-14.9 [facility] Comment on above: Performed By: #### L 500.3400, L504.2610 #### [facility] [address] [facility] [place], [address] 12 Lead EKGon 04-25-2024 12 Lead EKG [facility] Cardi[facility] Services [address] [place] [address] 12 Lead EKG 04/25/24 1701 MR#: [id number] Acct: [id number] Name: BLAYNE MORALES Rep #: [id number] : 1950 74 From: Blayne Cedillo MD Attending Dr: Dr. Luis Nieto DO Status: A DM IN Ordering Dr: Cindy Mendez DO Date: 04/25/24 Location: [facility] Sex: M C Admitted: 04/25/24 Test [...] deviation Abnormal ECG Confirmed by Blayne Cedillo ([id number]), manager editorial MARSHA STAPLETON ([id number]) on 04/27/2024 10:56:52 AM Referred By: Hubert Hastings Confirmed By: Blayne Cedillo 04/27/24 1056 Date Blayne Cedillo MD CC: [facility] IRENE Gil; Dr. Hubert Hastings, DO; Dr. Luis Nieto DO; Dr. Cindy Mendez, DO Signed Normal [facility] Absolute neutrophil countOrd ered By: Cindy Mendez on 04-25-2024 Neutrophils (Bld) [#/Vol] 9.7 10*3/uL High 2.0-7.7 [facility] Anion gap in Serum or Plasma Ordered By: Cindy Mendez on 04-25-2024 Anion gap [Moles/Vol] 13 mmol/L 5-15 [facility] Automated blood erythrocyte countOrdered By: Cindy Mendez on 04-25-2024 RBC (Bld) [#/Vol] 5.78 10*6/uL Normal 4.6-6.2 [facility] Comment on above: Performed By: #### L 500.2500, L300.3900, L001.0705, L504.2610, L100.0100 #### [facility] [address] [place], [address] Automated blood hematocrit ( percentage)Ordered By: Cindy Mendez on 04-25-2024 Hematocrit (Bld) [Volume fraction] 45.6 % Normal 40-54 [facility] Comment on above: Performed By: #### L 500.2500, L300.3900, L001.0705, L504.2610, L100.0100 #### [facility] [address] [place], [address] Automated lymphocyte count a s percentage of total leukocytesOrdered By: Cindy Mendez on 04-25-2024 Lymphocytes/100 WBC (Bld) 10.4 % Low 19-41 [facility] Comment on above: Performed By: #### L 500.2500, L300.3900, L001.0705, L504.2610, L100.0100 #### [facility] [address] [place], [address] BUN/creatinine ratioOrdered By: Remus Ungur on 04-25-2024 Urea nitrogen/Creatinine [Mass ratio] 18.5 mg/mg 10-20 [facility] Basic Metabolic Profile (BMP )on 04-25-2024 BUN/CRE 18.5 RATIO Normal -20 [facility] Comment on above: Performed By: #### L 500.2500, L300.3900, L001.0705, L504.2610, L100.0100 #### [facility] [address] [place] [address] ECRCL 83.06 ml/min Normal 50-250 [facility] Comment on above: Performed By: #### L 500.2500, L300.3900, L001.0705, L504.2610, L100.0100 #### [facility] [address] [place] [address] GAP 13 Normal 5-15 [facility] Comment on above: Performed By: #### L 500.2500, L300.3900, L001.0705, L504.2610, L100.0100 #### [facility] [address] [place] [address] GFR/1.73 sq M.predicted among non-blacks MDRD (S/P/Bld) [Vol rate/Area] 80 mL/min/{1.73_m2} Normal >60 [facility] Comment on above: Result Comment: mL/m in/1.73m2 CKD-EPI Creatinine Equation (2020) Performed By: #### L 500.2500, L300.3900, L001.0705, L504.2610, L100.0100 #### [facility] [address] [place], [address] Basophil percentageOrdered B y: Remus Ungur on 04-25-2024 Basophils/100 WBC (Bld) 0.4 % Normal 0-1 [facility] Comment on above: Performed By: #### L 500.2500, L300.3900, L001.0705, L504.2610, L100.0100 #### [facility] [address] [place], [address] Bedside Glucoseon 04-25-2024 FINGERSTICK GLU 177 mg/dL High 74-106 [facility] Comment on above: Result Comment: KECIA ABDI OF PATIENT CARE PER NURSING PROTOCOL Performed By: #### L 500.3400, L504.2610 #### [facility] [address] [place], [address] Bilirubin Test strip Ql (U)O rdered By: Cindy Mendez on 04-25-2024 Bilirubin Ql (U) Negative Negative [facility] Bilirubin directOrdered By: Hubert Hastings on 04-25-2024 Bilirubin.direct [Mass/Vol] 0.75 mg/dL High 0.00-0.30 [facility] Bilirubin, totalOrdered By: Hubert Hastings on 04-25-2024 Bilirubin [Mass/Vol] 1.40 mg/dL High 0.00-1.30 [facility] Body fluid lactate dehydroge nase measurement (enzymatic activity/volume) by pyruvateOrdered By: Hubert Hastings on 04-25-2024 LDH Pyruvate to lactate reaction (Body fld) [Catalytic activity/Vol] 92 Units/L Not Establ. [facility] Body fluid protein measureme nt (mass/volume)Ordered By: Hubert Hastings on 04-25-2024 Protein (Body fld) [Mass/Vol] 3.8 g/dL Not Establ. [facility] CBC W/Diff, Automatedon Absolute Lymph 1.29 X10 3/uL Normal 0.83-4.51 [facility] Comment on above: Performed By: #### L 500.2500, L300.3900, L001.0705, L504.2610, L100.0100 #### [facility] [address] [place], [address] Absolute Neut 9.7 X10 3/uL High 2.0-7.7 [facility] Comment on above: Performed By: #### L 500.2500, L300.3900, L001.0705, L504.2610, L100.0100 #### [facility] [address] [place], [address] IG% 0.300 Normal 0.0-0.9 [facility] Comment on above: Result Comment: IG% - Immature Granulocytes (promyelocytes, myelocytes and metamyelocytes) > 1% indicates that a LEFT SHIFT is Present. Performed By: #### L 500.2500, L300.3900, L001.0705, L504.2610, L100.0100 #### [facility] [address] [place], [address] Nucleated RBC (Bld) [#/Vol] 0 10*3/uL Normal 0-5 [facility] Comment on above: Performed By: #### L 500.2500, L300.3900, L001.0705, L504.2610, L100.0100 #### [facility] [address] [place], [address] RDW SD 45.1 fl High 35.1-43.9 [facility] Comment on above: Performed By: #### L 500.2500, L300.3900, L001.0705, L504.2610, L100.0100 #### [facility] [address] [place], [address] Carbon dioxide, total [Moles /volume] in Central venous bloodOrdered By: Cindy Mendez on 04-25-2024 CO2 [Moles/Vol] 22.0 mmol/L Normal 21.0-32.0 [facility] Comment on above: Performed By: #### L 500.2500, L300.3900, L001.0705, L504.2610, L100.0100 #### [facility] [address] [place], [address] Chest 1 View (Portable)on Chest 1 View (Portable) [facility] Imaging Services [address] [place] [address] Chest 1 View (Portable) MR#: [id number] Acct: [id number] Name: BLAYNE MORALES Rep #: [id number] : 1950 M 74 From: Don Rodriguez DO PCP: VIKRAM Bower, J2EE DEVELOPER-C Status: REG ER Study: Chest 1 View (Portable) Date of Exam: 04/25/24 Exam# [id number] Ordering Dr: Cindy Mendez DO PROCEDURE: CHEST [...] not be excluded. Reading Location: [facility] CC: [facility] J2EE DEVELOPER-C Evelia Gil; Dr. Cindy Mendez DO Diesel Electrician: Signed Normal [facility] Chest without Contraston Chest without Contrast [facility] Imaging Services [address] [place] [address] Chest without Contrast MR#: [id number] Acct: [id number] Name: BLAYNE MORALES Rep #: [id number] : 1950 M 74 From: Don Rodriguez DO PCP: VIKRAM Bower, J2EE DEVELOPER-C Status: ADM IN Study: Chest without Contrast Date of Exam: 04/25/24 Exam# [id number] Ordering Dr: Hubert Hastings DO PROCEDURE: CHEST [...] iterative reconstruction technique). Reading Location: [facility] CC: [facility] J2EE DEVELOPERCash Gil; Dr. Hubert Hastings DO Diesel Electrician: Signed Normal [facility] Chloride assayOrdered By: Monica Mendez on 04-25-2024 Chloride [Moles/Vol] 96 mmol/L Low 98-108 [facility] Comment on above: Performed By: #### L 500.2500, L300.3900, L001.0705, L504.2610, L100.0100 #### [facility] [address] [facility], [address] Echo Completeon 04-25-2024 Echo Complete [facility] Cardiovascular Services [address] [place] [address] Echo Complete 04/27/24 1002 MR#: [id number] Acct: [id number] Name: BLAYNE MORALES Rep #: [id number] : 1950 74 From: Deedee Torres MD Attending Dr: Dr. Luis Nieto DO Status: A DM IN Ordering Dr: Hubert Hastings DO Date: 04/25/24 Location: U Sex: M [...] 1339 Date Deedee Torres MD CC: Matilde J2EE DEVELOPER-C Evelia Gil; Dr. Hubert Hastings DO; Dr. Luis Nieto DO Date Dictated: 04/27/24 1002 Date Transcribed: 04/27/24 133 Diesel Electrician: Signed Normal [facility] Emergency Department Summary on 04-25-2024 Emergency Department Summary [facility] Medical Records Department [address] [place] [address] Emergency Department Summary 04/25/24 MR#: [id number] Acct: [id number] Name: BLAYNE MORALES Rep #: [id number] : 1950 74 From: Cindy Mendez DO PCP: VIKRAM Bower, J2EE DEVELOPER-C Status:ADM IN Location: [place] [address] HPI History of Present Illness Chief Complaint: [...] chills or sweats. He describes frequent urination. [facility] Medical History Cardiac murmur Chronic kidney [...] 104 H (more content not included)... Normal [facility] Eosinophil percentageOrdered By: Cindy Mendez on 04-25-2024 Eosinophils/100 WBC (Bld) 2.8 % Normal 0-5 [facility] Comment on above: Performed By: #### L 500.2500, L300.3900, L001.0705, L504.2610, L100.0100 #### [facility] [address] [place], [address] Epithelial cells.squamous LM Ql (Urine sed)Ordered By: Cindy Mendez on 04-25-2024 Epithelial cells.squamous LM.HPF (Urine sed) [#/Area] 0 /[HPF] 0-5 [facility] Erythrocyte distribution wid th ratioOrdered By: Cindy Mendez on 04-25-2024 Erythrocyte distribution width (RBC) [Ratio] 16.2 % High 11.6-14.6 [facility] Comment on above: Performed By: #### L 500.2500, L300.3900, L001.0705, L504.2610, L100.0100 #### [facility] [address] [place], [address] Erythrocyte distribution wid th standard deviationOrdered By: Cindy Mendez on 04-25-2024 Erythrocyte distribution width (RBC) [Entitic vol] 45.1 fL High 35.1-43.9 [facility] Estimation of creatinine sami aranceOrdered By: Cindy Mendez on 04-25-2024 Estimated Creatinine Clearance Calc 83.06 ml/min 50-250 [facility] GFR/1.73 sq M.predicted kalani g non-blacks MDRD (S/P/Bld) [Vol rate/Area]Ordered By: Cindy Mendez on 04-25-2024 Estimated GFR (MDRD) Non-Af Amer 80 >60 [facility] Comment on above: mL/min/1.73m2 CKD-EP I Creatinine Equation (2020) Glucose Ql (U)Ordered By: Monica Mendez on 04-25-2024 Urine Glucose (UA) Normal mg/dl Normal [facility] H AND P Exam - Hospitaliston 04-25-2024 H&P Exam - Hospitalist [facility] Medical Records Department [address] [place] [address] H P Exam - Hospitalist 04/25/24 1831 MR#: [id number] Acct: [id number] Name: BLAYNE MORALES Rep #: [id number] : 1950 74 From: Hubert Hastings DO PCP: Evelia Gil Matilde, J2EE DEVELOPER-C Status:ADM IN Location: [facility] [id number] HPI - General General Date of Admission: 04/25/24 Date of Service: 04/25/24 Chief Complaint: Worsening shortness of breath with exertion and concern for hypoglycemic episodes HPI Narrative BLAYNE MORALES, is a 74 M who presented to [facility] ED on 04/25/2024 with worsening shortness of [...] No other acute concerns at this time. [facility] Medical History Cardiac murmur Chronic kidney disease [...] lightheadedness Respiratory/Chest (more content not included)... Normal [facility] Hemoglobin measurementOrdere d By: Cindy Mendez on 04-25-2024 Hemoglobin (Bld) [Mass/Vol] 14.9 g/dL Normal 13.0-16.5 [facility] Comment on above: Performed By: #### L 500.2500, L300.3900, L001.0705, L504.2610, L100.0100 #### [facility] [address] [place], [address] Immature granulocytes/100 WB C Auto (Bld)Ordered By: Cindy Mendez on 04-25-2024 Immature granulocytes/100 WBC (Bld) 0.300 % 0.0-0.9 [facility] Comment on above: IG% - Immature Granu locytes (promyelocytes, myelocytes and metamyelocytes) > 1% indicates that a LEFT SHIFT is Present. International normalized rat io (INR) calculationOrdered By: Cindy Mendez on 04-25-2024 INR Coag (Bld) [Relative time] 3.1 {INR} [facility] Ketones Test strip Ql (U)Ord ered By: Cindy Mendez on 04-25-2024 Ketones Ql (U) Negative Negative [facility] L499.0042on 04-25-2024 Trop T High Sen 71 ng/L Invalid Interpretation Code <=22 [facility] Comment on above: Result Comment: Crit ical Result(s) Called EAFFOLTER at: 2041 by: MARY??Results read back by same. Performed By: #### L 300.3900 #### [facility] [address] [place], [address] L499.0043on 04-25-2024 Trop T High Sen 76 ng/L Invalid Interpretation Code <=22 [facility] Comment on above: Result Comment: Crit ical Result(s) Called EAFFOLTER at: 2247 by: MARY??Results read back by same. Performed By: #### L 501.080 #### [facility] [address] [place], [address] L501.4021on 04-25-2024 Trop T High Sen 77 ng/L Invalid Interpretation Code <=22 [facility] Comment on above: Result Comment: Crit ical Result(s) Called ASelf at: 1735 by: Mary??Results read back by same. Performed By: #### L 500.2500, L300.3900, L001.0705, L504.2610, L100.0100 #### [facility] [address] [place], [address] L503.7505Ordered By: Cindy keene on 04-25-2024 Natriuretic peptide B (Bld) [Mass/Vol] 849 pg/mL Normal <=900 [facility] Comment on above: Heart Failure Unlike ly: < 300 pg/mLHeart Failure Likely< 50 Years: > 450 pg/mL50-75 Years: > 900 pg/mL>75 Years: > 1800 pg/mL Result Comment: Hear t Failure Unlikely: < 300 pg/mL Heart Failure Likely < 50 Years: > 450 pg/mL 50-75 Years: > 900 pg/mL >75 Years: > 1800 pg/mL Performed By: #### L 500.2500, L300.3900, L001.0705, L504.2610, L100.0100 #### [facility] [address] [place], [place], [address] LDHon 04-25-2024 LDH 149 U/L Normal 87-241 [facility] Comment on above: Performed By: #### L 500.3400, L504.2610 #### [facility] [address] [place], [address] LDH Pyruvate to lactate reac tion (Body fld) [Catalytic activity/Vol]Ordered By: Hubert Hastings on 04-25-2024 Body Fluid Lactate Dehydrogenase 92 Units/L Not Establ. [facility] - Chemistry and C hemistry - challengeOrdered By: Hubert Hastings on 04-25-2024 AST [Catalytic activity/Vol] 21 U/L <38 [facility] Liver Profileon 04-25-2024 Albumin [Mass/Vol] 4.0 g/dL Normal 3.4-4.8 [facility] Comment on above: Performed By: #### L 500.3400, L504.2610 #### [facility] [address] [place], [address] ALK PHOS 131 U/L High 40-129 [facility] Comment on above: Performed By: #### L 500.3400, L504.2610 #### [facility] [address] [place], [address] ALT [Catalytic activity/Vol] 18 U/L Normal <=46 [facility] Comment on above: Performed By: #### L 500.3400, L504.2610 #### [facility] [address] [place], [address] AST [Catalytic activity/Vol] 21 U/L Normal <=37 [facility] Comment on above: Performed By: #### L 500.3400, L504.2610 #### [facility] [address] [place], [address] Bilirubin [Mass/Vol] 1.40 mg/dL High 0.00-1.30 [facility] Comment on above: Performed By: #### L 500.3400, L504.2610 #### [facility] [address] [place], [address] Bilirubin.direct [Mass/Vol] 0.75 mg/dL High 0.00-0.30 [facility] Comment on above: Performed By: #### L 500.3400, L504.2610 #### [facility] [address] [place], [address] Globulin (S) [Mass/Vol] 3.9 g/dL Normal 2.2-4.2 [facility] Comment on above: Performed By: #### L 500.3400, L504.2610 #### [facility] [address] [place], [address] T PROT 7.9 g/dL Normal 5.9-8.4 [facility] Comment on above: Performed By: #### L 500.3400, L504.2610 #### [facility] [address] [place], [address] Lymphocytes Auto (Unsp spec) [#/Vol]Ordered By: Cindy Mendez on 04-25-2024 Lymphocytes (Bld) [#/Vol] 1.29 10*3/uL 0.83-4.51 [facility] MCV (mean corpuscular volume ) determinationOrdered By: Cindy Mendez on 04-25-2024 MCV (RBC) [Entitic vol] 78.9 fL Low 80-94 [facility] Comment on above: Performed By: #### L 500.2500, L300.3900, L001.0705, L504.2610, L100.0100 #### [facility] [address] [place], [address] Mean corpuscular hemoglobin (MCH) determinationOrdered By: Cindy Mendez on 04-25-2024 MCH (RBC) [Entitic mass] 25.8 pg Low 27.0-32.0 [facility] Comment on above: Performed By: #### L 500.2500, L300.3900, L001.0705, L504.2610, L100.0100 #### [facility] [address] [place], [place], [address] Mean corpuscular hemoglobin concentration (MCHC) determinationOrdered By: Cindy Mendez on 04-25-2024 MCHC (RBC) [Mass/Vol] 32.7 g/dL Normal 32-36 [facility] Comment on above: Performed By: #### L 500.2500, L300.3900, L001.0705, L504.2610, L100.0100 #### [facility] [address] [place], [address] Mean platelet volume determi nationOrdered By: Cindy Mendez on 04-25-2024 Platelet mean volume (Bld) [Entitic vol] 10.1 fL Normal 6.2-12.0 [facility] Comment on above: Performed By: #### L 500.2500, L300.3900, L001.0705, L504.2610, L100.0100 #### [facility] [address] [facility] [place], [address] Microscopic analysis of urin e for red blood cells (RBC)Ordered By: Cindy Mendez on 04-25-2024 Microscopic analysis of urine for red blood cells (RBC) 0 SEEN /hpf 0-5 [facility] Urine RBC 0 SEEN /hpf 0-5 [facility] Monocyte percentageOrdered B y: Cindy Mendez on 04-25-2024 Monocytes/100 WBC (Bld) 7.4 % Normal 0-10 [facility] Comment on above: Performed By: #### L 500.2500, L300.3900, L001.0705, L504.2610, L100.0100 #### [facility] [address] [place], [address] Mucus LM Ql (Urine sed)Order ed By: Cindy Mendez on 04-25-2024 Mucus Ql (Urine sed) 0 SEEN /hpf [facility] Neutrophil percentageOrdered By: Cindy Mendez on 04-25-2024 Neutrophils/100 WBC (Bld) 78.7 % High 47-70 [facility] Comment on above: Performed By: #### L 500.2500, L300.3900, L001.0705, L504.2610, L100.0100 #### [facility] [address] [place], [address] Nitrite Test strip Ql (U)Ord ered By: Cindy Mendez on 04-25-2024 Nitrite Ql (U) Negative Negative [facility] No Panel InformationOrdered By: Cindy Mendez on 04-25-2024 Troponin T High Sensitivity 77 ng/L High <22 [facility] Comment on above: Critical Result(s) C alled ASelf at: 1735 by: Mary Results read back by same. Nucleated red blood cell per centageOrdered By: Cindy Mendez on 04-25-2024 Nucleated RBC/100 WBC (Bld) [Ratio] 0 % 0-5 [facility] PTH intactOrdered By: Ally Waller on 04-25-2024 Parathyroid Hormone (Intact) 47 pg/mL [facility] PTHINon 04-25-2024 PTH 47 pg/mL Normal [facility] Comment on above: Performed By: #### L 500.3400, L504.2610 #### [facility] [address] [place], [address] Platelet countOrdered By: Monica Mendez on 04-25-2024 Platelets (Bld) [#/Vol] 232 10*3/uL Normal 150-450 [facility] Comment on above: Performed By: #### L 500.2500, L300.3900, L001.0705, L504.2610, L100.0100 #### [facility] [address] [place], [address] Potassium measurement (mass/ volume)Ordered By: Cindy Mendez on 04-25-2024 Potassium [Moles/Vol] 4.0 mmol/L Normal 3.3-5.1 [facility] Comment on above: Performed By: #### L 500.2500, L300.3900, L001.0705, L504.2610, L100.0100 #### [facility] [address] [place], [address] Protein (Body fld) [Mass/Vol ]Ordered By: Hubert Hastings on 04-25-2024 Body Fluid Total Protein 3.8 g/dL Not Establ. [facility] Protein Test strip Ql (U)Ord ered By: Cindy Mendez on 04-25-2024 Protein Ql (U) 30 mg/dl High Negative [facility] Prothrombin Time w/INRon INR Coag (PPP) [Relative time] 3.1 {INR} Normal [facility] Comment on above: Performed By: #### L 300.3900 #### [facility] [address] [place], [address] (481) Prothrombin timeOrdered By: Cindy Mendez on 04-25-2024 PT Coag (PPP) [Time] 32.7 s High 11.7-14.9 [facility] Comment on above: Performed By: #### L 300.3900 #### [facility] [address] [place], [place], [id number] (776) Serum creatinine measurement (mass/volume)Ordered By: Cindy Mendez on 04-25-2024 Creatinine [Mass/Vol] 0.99 mg/dL Normal 0.70-1.20 [facility] Comment on above: Performed By: #### L 500.2500, L300.3900, L001.0705, L504.2610, L100.0100 #### [facility] [address] [place], [address] ([address] Serum globulin measurementOr dered By: Hubert Hastings on 04-25-2024 Globulin (S) [Mass/Vol] 3.9 g/dL 2.2-4.2 [facility] Serum glucose measurement (m ass/volume)Ordered By: Cindy Mendez on 04-25-2024 Glucose [Mass/Vol] 183 mg/dL High 70-99 [facility] Comment on above: Performed By: #### L 500.2500, L300.3900, L001.0705, L504.2610, L100.0100 #### [facility] [address] [place], [address] Serum or plasma alanine harden otransferase (ALT) measurementOrdered By: Hubert Hastings on 04-25-2024 ALT [Catalytic activity/Vol] 18 U/L <47 [facility] Serum or plasma albumin jocelyn urement (mass/volume)Ordered By: Hubert Hastings on 04-25-2024 Albumin [Mass/Vol] 4.0 g/dL 3.4-4.8 [facility] Serum or plasma alkaline easton sphatase measurementOrdered By: Hubert Hastings on 04-25-2024 ALP [Catalytic activity/Vol] 131 U/L High 40-129 [facility] Serum or plasma calcium jocelyn urement (mass/volume)Ordered By: Remus Vanessa on 04-25-2024 Calcium [Mass/Vol] 11.2 mg/dL High 7.6-11.0 [facility] Comment on above: Performed By: #### L 500.2500, L300.3900, L001.0705, L504.2610, L100.0100 #### [facility] [address] [place], [place], [id number] Serum or plasma urea nitroge n measurement (mass/volume)Ordered By: Remus Vanessa on 04-25-2024 Urea nitrogen [Mass/Vol] 18 mg/dL Normal 4-19 [facility] Comment on above: Performed By: #### L 500.2500, L300.3900, L001.0705, L504.2610, L100.0100 #### [facility] [address] [place], [place], [id number] Sodium levelOrdered By: Remu s Ungur on 04-25-2024 Sodium [Moles/Vol] 131 mmol/L Low 133-145 [facility] Comment on above: Performed By: #### L 500.2500, L300.3900, L001.0705, L504.2610, L100.0100 #### [facility] [address] [place], [place], [id number] Squamous epithelial cells de tection in urine sediment by light microscopyOrdered By: Cindy Mendez on 04-25-2024 Epithelial cells.squamous LM Ql (Urine sed) 0 SEEN /hpf 0-5 [facility] Troponin T.cardiac High sens itivity method [Mass/Vol]Ordered By: Cindy Mendez on 04-25-2024 Troponin T High Sensitivity 4 Hour 76 ng/L High <22 [facility] Comment on above: Critical Result(s) C randid BARAKFFOLTER at: 7 by: RealSelfORKMAN Results read back by same. Troponin T High Sensitivity 2 Hour 71 ng/L High <22 [facility] Comment on above: Critical Result(s) C mariel MCKEONOLTER at: 2041 by: RealSelfORKMAN Results read back by same. Troponin T.cardiac [Mass/vol ume] in Serum or Plasma by High sensitivity methodOrdered By: Cindy Mendez on 04-25-2024 Troponin T.cardiac High sensitivity method [Mass/Vol] 76 ng/L High <22 [facility] Comment on above: Critical Result(s) C alled EAFFOLTER at: 2247 by: RealSelfORKMAN Results read back by same. Troponin T.cardiac High sensitivity method [Mass/Vol] 71 ng/L High <22 [facility] Comment on above: Critical Result(s) C mariel FROSTTER at: 2041 by: [employer]Self[employer]MAN Results read back by same. Urinalysis, Completeon 04-25 RBC 0 SEEN Normal 0-5 [facility] Comment on above: Order Comment: YVROSE CTOR TO SPECIFY Performed By: #### L 501.080 #### [facility] [address] [place], [place], [id number] BACTERIA 0 SEEN Normal None Seen [facility] Comment on above: Order Comment: YVROSE CTOR TO SPECIFY Performed By: #### L 501.080 #### [facility] [address] [place], [address] EPI,SQUAMOUS 0 SEEN Normal 0-5 [facility] Comment on above: Order Comment: YVROSE CTOR TO SPECIFY Performed By: #### L 501.080 #### [facility] [address] [place], [address] Mucus Ql (Urine sed) 0 SEEN Normal [facility] Comment on above: Order Comment: YVROSE CTOR TO SPECIFY Performed By: #### L 501.080 #### [facility] [address] [place], [address] WBC 0 SEEN Normal 0-5 [facility] Comment on above: Order Comment: YVROSE CTOR TO SPECIFY Performed By: #### L 501.080 #### [facility] [address] [place], [address] Urine blood detectionOrdered By: Cindy Mendez on 04-25-2024 Urine Occult Blood 10 /ul High Negative [facility] Urine clarityOrdered By: Joy Mendez on 04-25-2024 Clarity (U) Clear Clear [facility] Urine color determinationOrd ered By: Cindy Mendez on 04-25-2024 Color (U) Yellow Yellow [facility] Urine glucose detectionOrder ed By: Cindy Mendez on 04-25-2024 Glucose Ql (U) Normal mg/dl Normal [facility] Urine leukocyte esterase det ection by dipstickOrdered By: Cindy Mendez on 04-25-2024 Leukocyte esterase Test strip Ql (U) Negative Negative [facility] Urine pHOrdered By: Cindy Un gur on 04-25-2024 pH (U) 6.0 [pH] 5.0 - 8.0 [facility] Urine sediment bacteria coun t by microscopy (number/high power field)Ordered By: Cindy Mendez on 04-25-2024 Bacteria LM.HPF (Urine sed) [#/Area] 0 /[HPF] None Seen [facility] Urine specific gravity measu rementOrdered By: Cindy Mendez on 04-25-2024 Specific gravity (U) [Rel density] 1.015 1.002-1.03 0 [facility] Urine urobilinogen measureme ntOrdered By: Remus Ungur on 04-25-2024 Urobilinogen Ql (U) Normal mg/dl Normal [facility] Urobilinogen Ql (U)Ordered B y: Remus Ungur on 04-25-2024 Urine Urobilinogen Normal mg/dl Normal [facility] White blood cell (WBC) count Ordered By: Remus Ungur on 04-25-2024 WBC (Bld) [#/Vol] 12.4 10*3/uL High 4.4-11.0 [facility] Comment on above: Performed By: #### L 500.2500, L300.3900, L001.0705, L504.2610, L100.0100 #### [facility] [address] [place], [address] White blood cell countOrdere d By: Remus Ungur on 04-25-2024 Urine WBC 0 SEEN /hpf 0-5 [facility] White blood cell count 0 SEEN /hpf 0-5 [facility] BNP,B-Type NATRIURETIC PEPTI Lilia 04-09-2024 Natriuretic peptide B (Bld) [Mass/Vol] 173.9 pg/mL High 0-100 [facility] Comment on above: Performed By: #### L 500.2500, L300.3900, L001.0705, L504.2610, L100.0100 #### [facility] [address] [place], [place], [id number] Absolute lymphocyte countOrd ered By: ED PROVIDER on 04-07-2024 Lymphocytes Auto (Unsp spec) [#/Vol] 0.96 10*3/uL 0.83-4.51 [facility] Absolute neutrophil countOrd ered By: ED PROVIDER on 04-07-2024 Neutrophils (Bld) [#/Vol] 8.3 10*3/uL High 2.0-7.7 [facility] Automated lymphocyte count a s percentage of total leukocytesOrdered By: ED PROVIDER on 04-07-2024 Lymphocytes/100 WBC Auto (Unsp spec) 9.3 % Low 19-41 [facility] BNP (brain natriuretic pepti de measurement)Ordered By: Carlos Wang on 04-07-2024 Natriuretic peptide B (Bld) [Mass/Vol] 173.9 pg/mL High 0-100 [facility] Basic Metabolic Profile (BMP )on 04-07-2024 BUN/CRE 18.5 RATIO Normal 10-20 [facility] Comment on above: Performed By: #### L 500.2500, L300.3900, L001.0705, L504.2610, L100.0100 #### [facility] [address] [place], [address] CA,Total 11.3 mg/dL High 8.5-10.1 [facility] Comment on above: Performed By: #### L 500.2500, L300.3900, L001.0705, L504.2610, L100.0100 #### [facility] [address] [place], [address] Chloride [Moles/Vol] 102 mmol/L Normal 98-107 [facility] Comment on above: Performed By: #### L 500.2500, L300.3900, L001.0705, L504.2610, L100.0100 #### [facility] [address] [place], [address] CO2 [Moles/Vol] 28.0 mmol/L Normal 21.0-32.0 [facility] Comment on above: Performed By: #### L 500.2500, L300.3900, L001.0705, L504.2610, L100.0100 #### [facility] [address] [place], [address] Creatinine [Mass/Vol] 0.97 mg/dL Normal 0.70-1.30 [facility] Comment on above: Result Comment: The validity of the calculated GFR GFRAA in patients over 70 years has not been determined. Clinical correlation is essential. Performed By: #### L 500.2500, L300.3900, L001.0705, L504.2610, L100.0100 #### [facility] [address] [place], [address] ECRCL 86.17 ml/min Normal [facility] Comment on above: Performed By: #### L 500.2500, L300.3900, L001.0705, L504.2610, L100.0100 #### [facility] [address] [place], [address] EST GFR - AA 97 mL/min Normal >60 [facility] Comment on above: Result Comment: Afri can [place] GFR Calc Performed By: #### L 500.2500, L300.3900, L001.0705, L504.2610, L100.0100 #### [facility] [address] [place], [address] GAP 8 Normal 5-15 [facility] Comment on above: Performed By: #### L 500.2500, L300.3900, L001.0705, L504.2610, L100.0100 #### [facility] [address] [place], [address] GFR/1.73 sq M.predicted among non-blacks MDRD (S/P/Bld) [Vol rate/Area] 80 mL/min/{1.73_m2} Normal >60 [facility] Comment on above: Result Comment: Non- GFR Calc Performed By: #### L 500.2500, L300.3900, L001.0705, L504.2610, L100.0100 #### [facility] [address] [place], [address] Glucose [Mass/Vol] 87 mg/dL Normal 74-106 [facility] Comment on above: Performed By: #### L 500.2500, L300.3900, L001.0705, L504.2610, L100.0100 #### [facility] [address] [place], [address] Potassium [Moles/Vol] 4.0 mmol/L Normal 3.5-5.1 [facility] Comment on above: Performed By: #### L 500.2500, L300.3900, L001.0705, L504.2610, L100.0100 #### [facility] [address] [place], [address] Sodium [Moles/Vol] 138 mmol/L Normal 136-145 [facility] Comment on above: Performed By: #### L 500.2500, L300.3900, L001.0705, L504.2610, L100.0100 #### [facility] [address] [place], [address] Urea nitrogen [Mass/Vol] 18 mg/dL Normal 7-18 [facility] Comment on above: Performed By: #### L 500.2500, L300.3900, L001.0705, L504.2610, L100.0100 #### [facility] [address] [place], [address] Basophil percentageOrdered B y: ED PROVIDER on 04-07-2024 Basophils/100 WBC (Bld) 0.5 % 0-1 [facility] Blood urea nitrogen (BUN)/cr eatinine ratioOrdered By: ED PROVIDER on 04-07-2024 Urea nitrogen/Creatinine [Mass ratio] 18.5 mg/mg 10-20 [facility] CBC W/Diff, Automatedon 03-21 Absolute Lymph 0.96 X10 3/uL Normal 0.83-4.51 [facility] Comment on above: Performed By: #### L 500.2500, L300.3900, L001.0705, L504.2610, L100.0100 #### [facility] [address] [place], [address] Absolute Neut 8.3 X10 3/uL High 2.0-7.7 [facility] Comment on above: Performed By: #### L 500.2500, L300.3900, L001.0705, L504.2610, L100.0100 #### [facility] [address] [place], [address] Basophils/100 WBC (Bld) 0.5 % Normal 0-1 [facility] Comment on above: Performed By: #### L 500.2500, L300.3900, L001.0705, L504.2610, L100.0100 #### [facility] [address] [place], [address] Eosinophils/100 WBC (Bld) 1.9 % Normal 0-5 [facility] Comment on above: Performed By: #### L 500.2500, L300.3900, L001.0705, L504.2610, L100.0100 #### [facility] [address] [place], [address] Erythrocyte distribution width (RBC) [Ratio] 15.9 % High 11.6-14.6 [facility] Comment on above: Performed By: #### L 500.2500, L300.3900, L001.0705, L504.2610, L100.0100 #### [facility] [address] [place], [address] Hematocrit (Bld) [Volume fraction] 46.9 % Normal 40-54 [facility] Comment on above: Performed By: #### L 500.2500, L300.3900, L001.0705, L504.2610, L100.0100 #### [facility] [address] [place], [address] Hemoglobin (Bld) [Mass/Vol] 14.6 g/dL Normal 13.0-16.5 [facility] Comment on above: Performed By: #### L 500.2500, L300.3900, L001.0705, L504.2610, L100.0100 #### [facility] [address] [place], [address] IG% 0.400 Normal 0.0-0.9 [facility] Comment on above: Result Comment: IG% - Immature Granulocytes (promyelocytes, myelocytes and metamyelocytes) > 1% indicates that a LEFT SHIFT is Present. Performed By: #### L 500.2500, L300.3900, L001.0705, L504.2610, L100.0100 #### [facility] [address] [place], [address] Lymphocytes/100 WBC (Bld) 9.3 % Low 19-41 [facility] Comment on above: Performed By: #### L 500.2500, L300.3900, L001.0705, L504.2610, L100.0100 #### [facility] [address] [place], [address] MCH (RBC) [Entitic mass] 25.4 pg Low 27.0-32.0 [facility] Comment on above: Performed By: #### L 500.2500, L300.3900, L001.0705, L504.2610, L100.0100 #### [facility] [address] [place], [address] MCHC (RBC) [Mass/Vol] 31.1 g/dL Low 32-36 [facility] Comment on above: Performed By: #### L 500.2500, L300.3900, L001.0705, L504.2610, L100.0100 #### [facility] [address] [place], [address] MCV (RBC) [Entitic vol] 81.6 fL Normal 80-94 [facility] Comment on above: Performed By: #### L 500.2500, L300.3900, L001.0705, L504.2610, L100.0100 #### [facility] [address] [place], [address] Monocytes/100 WBC (Bld) 7.4 % Normal 0-10 [facility] Comment on above: Performed By: #### L 500.2500, L300.3900, L001.0705, L504.2610, L100.0100 #### [facility] [address] [place], [address] Neutrophils/100 WBC (Bld) 80.5 % High 47-70 [facility] Comment on above: Performed By: #### L 500.2500, L300.3900, L001.0705, L504.2610, L100.0100 #### [facility] [address] [place], [address] Nucleated RBC (Bld) [#/Vol] 0 10*3/uL Normal 0-5 [facility] Comment on above: Performed By: #### L 500.2500, L300.3900, L001.0705, L504.2610, L100.0100 #### [facility] [address] [place], [address] Platelet mean volume (Bld) [Entitic vol] 9.8 fL Normal 6.2-12.0 [facility] Comment on above: Performed By: #### L 500.2500, L300.3900, L001.0705, L504.2610, L100.0100 #### [facility] [address] [place], [address] Platelets (Bld) [#/Vol] 227 10*3/uL Normal 150-450 [facility] Comment on above: Performed By: #### L 500.2500, L300.3900, L001.0705, L504.2610, L100.0100 #### [facility] [address] [place], [address] RBC (Bld) [#/Vol] 5.75 10*6/uL Normal 4.6-6.2 [facility] Comment on above: Performed By: #### L 500.2500, L300.3900, L001.0705, L504.2610, L100.0100 #### [facility] [address] [place], [address] RDW SD 46.5 fl High 35.1-43.9 [facility] Comment on above: Performed By: #### L 500.2500, L300.3900, L001.0705, L504.2610, L100.0100 #### [facility] [address] [place], [address] WBC (Bld) [#/Vol] 10.3 10*3/uL Normal 4.4-11.0 [facility] Comment on above: Performed By: #### L 500.2500, L300.3900, L001.0705, L504.2610, L100.0100 #### [facility] [address] [place], [address] Carbon dioxide measurementOr dered By: ED PROVIDER on 04-07-2024 CO2 [Moles/Vol] 28.0 mmol/L 21.0-32.0 [facility] Chest PA and Lateralon 04-07 Chest PA and Lateral [facility] [address] [place] [address] Chest PA and Lateral MR#: [id number] Acct: [id number] Name: BLAYNE MORALES Rep #: [id number] : 1950 M 74 From: James Menchaca MD PCP: VIKRAM Bower, J2EE DEVELOPER-C Status: REG ER Study: Chest PA and Lateral Date of Exam: 04/07/24 Exam# [id number] Ordering Dr: Carlos Wang DO PROCEDURE: CHEST PA AND LATERAL REASON FOR EXAM: Dyspnea TECHNIQUE: Frontal and lateral views of the chest. COMPARISON: 06/14/2022 FINDINGS: Heart size is moderately enlarged. The thoracic aorta is tortuous and calcified. Large right pleural effusion The bones are unremarkable. RAD/Chest PA and Lateral IMPRESSION: Cardiomegaly with large right pleural effusion Reading Location: [facility] CC: [facility] J2EE DEVELOPER-C Evelia Gil; Dr. Carlos Wang, DO Diesel Electrician: Signed Normal [facility] Chloride measurementOrdered By: ED PROVIDER on 04-07-2024 Chloride [Moles/Vol] 102 mmol/L 98-107 [facility] D-Dimer Quantitative (DVT/PE )on 04-07-2024 D-DIMER QUANT 0.60 FEU/ug/m Invalid Interpretation Code 0.27-0.49 [facility] Comment on above: Order Comment: CRITI JUANITA VALUE CALLED TO NHUNG LAM04/07/24 1851 Nikole Everett.RESULTS READ BACK BY SAME. Result Comment: D-Di janina ELEVATED (>0.49): Additional studies and clinical assessments are indicated to conclude diagnosis of: Deep Vein Thrombosis (DVT) or Pulmonary Embolism (PE) Performed By: #### L 500.2500, L300.3900, L001.0705, L504.2610, L100.0100 #### [facility] [address] [place], [place], [address] D-dimer measurement for deep venous thrombosisOrdered By: Carlos Wang on 04-07-2024 D-Dimer Quantitative (PE/DVT) 0.60 FEU/ug/m High 0.27-0.49 [facility] Comment on above: D-Dimer ELEVATED (>0 .49): Additional studies and clinicalassessments are indicated to conclude diagnosis of:Deep Vein Thrombosis (DVT) or Pulmonary Embolism (PE) Emergency Department Summary on 04-07-2024 Emergency Department Summary [facility] Medical Records Department [address] [place] [address] Emergency Department Summary 04/07/24 MR#: [id number] Acct: [id number] Name: BLAYNE MORALES Rep #: [id number] : 1950 74 From: Carlos Wang DO PCP: VIKRAM Bower, J2EE DEVELOPER-C Status:DEP ER Location: ED HPI History of [...] or chills. Patient denies any chest pain. [facility] Medical History Cardiac murmur Chronic kidney [...] 04/07/24 18: (more content not included)... Normal [facility] Eosinophil percentageOrdered By: ED PROVIDER on 04-07-2024 Eosinophils/100 WBC (Bld) 1.9 % 0-5 [facility] Erythrocyte distribution wid th ratioOrdered By: ED PROVIDER on 04-07-2024 Erythrocyte distribution width (RBC) [Ratio] 15.9 % High 11.6-14.6 [facility] Erythrocyte distribution wid th standard deviationOrdered By: ED PROVIDER on 04-07-2024 Erythrocyte distribution width (RBC) [Entitic vol] 46.5 fL High 35.1-43.9 [facility] Erythrocyte distribution width (RBC) [Ratio] 46.5 fl High 35.1-43.9 [facility] Estimated glomerular filtrat ion rate (GFR) AmericanOrdered By: ED PROVIDER on 04-07-2024 Estimated GFR (MDRD) Amer 97 mL/min >60 [facility] Comment on above: GFR Calc Estimation of creatinine sami aranceOrdered By: ED PROVIDER on 04-07-2024 Estimated Creatinine Clearance Calc 86.17 ml/min [facility] Glomerular filtration rate ( GFR) estimationOrdered By: ED PROVIDER on 04-07-2024 Estimated GFR (MDRD) Non-Af Amer 80 mL/min >60 [facility] Comment on above: Non- GFR Calc GFR/1.73 sq M.predicted among non-blacks MDRD (S/P/Bld) [Vol rate/Area] 80 mL/min/{1.73_m2} >60 [facility] Comment on above: Non- GFR Calc Glucose measurementOrdered B y: ED PROVIDER on 04-07-2024 Glucose [Mass/Vol] 87 mg/dL 74-106 [facility] Hematocrit Auto (Bld) [Volum e fraction]Ordered By: ED PROVIDER on 04-07-2024 Hematocrit (Bld) [Volume fraction] 46.9 % 40-54 [facility] Hemoglobin measurementOrdere d By: ED PROVIDER on 04-07-2024 Hemoglobin (Bld) [Mass/Vol] 14.6 g/dL 13.0-16.5 [facility] Immature granulocytes/100 WB C Auto (Bld)Ordered By: ED PROVIDER on 04-07-2024 Immature granulocytes/100 WBC (Bld) 0.400 % 0.0-0.9 [facility] Comment on above: IG% - Immature Granu locytes (promyelocytes, myelocytes and metamyelocytes) > 1% indicates that a LEFT SHIFT is Present. Influenza virus A and B and SARS-CoV-2 (COVID-19) and Respiratory syncytial virus RNAOrdered By: Carlos Wang on 04-07-2024 SARS-CoV-2 (COVID-19) RNA INO+probe Ql (Unsp spec) [facility] SARS-CoV-2 (COVID-19) RNA INO+probe Ql (Unsp spec) [facility] L501.4020on 04-07-2024 TROPONIN-I HS 13 pg/mL Normal 3.0-78.0 [facility] Comment on above: Order Comment: 'TROP ' Serial specimen #1, #2 or #3: 1 Result Comment: Plea se Note: New Test Units and Gender Specific Reference Ranges. For more information see Policy Stat Procedure [place] High Sensitivity Troponin (TNIH) and attachments. Performed By: #### L 500.2500, L300.3900, L001.0705, L504.2610, L100.0100 #### [facility] [address] [address] [place], [place], [id number] Lymphocytes Auto (Unsp spec) [#/Vol]Ordered By: ED PROVIDER on 04-07-2024 Lymphocytes (Bld) [#/Vol] 0.96 10*3/uL 0.83-4.51 [facility] Lymphocytes/100 WBC Auto (Un sp spec)Ordered By: ED PROVIDER on 04-07-2024 Lymphocytes/100 WBC (Bld) 9.3 % Low 19-41 [facility] M100.678on 04-07-2024 M100.678 SARS-CoV-2 (COVID 19 ) Negative INFLUENZA A Negative INFLUENZA B Negative RSV PCR Negative Normal [facility] Comment on above: Performed By: #### L 500.2500, L300.3900, L001.0705, L504.2610, L100.0100 #### [facility] [address] [place], [address] MCV (mean corpuscular volume ) determinationOrdered By: ED PROVIDER on 04-07-2024 MCV (RBC) [Entitic vol] 81.6 fL 80-94 [facility] Mean corpuscular hemoglobin (MCH) determinationOrdered By: ED PROVIDER on 04-07-2024 MCH (RBC) [Entitic mass] 25.4 pg Low 27.0-32.0 [facility] Mean corpuscular hemoglobin concentration (MCHC) determinationOrdered By: ED PROVIDER on 04-07-2024 MCHC (RBC) [Mass/Vol] 31.1 g/dL Low 32-36 [facility] Mean platelet volume determi nationOrdered By: ED PROVIDER on 04-07-2024 Platelet mean volume (Bld) [Entitic vol] 9.8 fL 6.2-12.0 [facility] Monocyte percentageOrdered B y: ED PROVIDER on 04-07-2024 Monocytes/100 WBC (Bld) 7.4 % 0-10 [facility] Neutrophil percentageOrdered By: ED PROVIDER on 04-07-2024 Neutrophils/100 WBC (Bld) 80.5 % High 47-70 [facility] Nucleated red blood cell per centageOrdered By: ED PROVIDER on 04-07-2024 Nucleated RBC/100 WBC (Bld) [Ratio] 0 % 0-5 [facility] Platelet countOrdered By: ED PROVIDER on 04-07-2024 Platelets (Bld) [#/Vol] 227 10*3/uL 150-450 [facility] Potassium measurementOrdered By: ED PROVIDER on 04-07-2024 Potassium [Moles/Vol] 4.0 mmol/L 3.5-5.1 [facility] RBC Auto (Bld) [#/Vol]Ordere d By: ED PROVIDER on 04-07-2024 RBC (Bld) [#/Vol] 5.75 10*6/uL 4.6-6.2 [facility] Serum anion gap measurementO rdered By: ED PROVIDER on 04-07-2024 Anion gap [Moles/Vol] 8 mmol/L 5-15 [facility] Serum or plasma calcium jocelyn urement (mass/volume)Ordered By: ED PROVIDER on 04-07-2024 Calcium [Mass/Vol] 11.3 mg/dL High 8.5-10.1 [facility] Serum or plasma creatinine m easurement (mass/volume)Ordered By: ED PROVIDER on 04-07-2024 Creatinine [Mass/Vol] 0.97 mg/dL 0.70-1.30 [facility] Comment on above: The validity of the calculated GFR & GFRAA in patients over 70 years has not been determined. Clinical correlation is essential. Serum or plasma urea nitroge n measurement (mass/volume)Ordered By: ED PROVIDER on 04-07-2024 Urea nitrogen [Mass/Vol] 18 mg/dL -18 [facility] Sodium levelOrdered By: ED P AMBREEN on 04-07-2024 Sodium [Moles/Vol] 138 mmol/L 136-145 [facility] Troponin IOrdered By: Carlos culver on 04-07-2024 Troponin I 13 pg/mL 3.0-78.0 [facility] Comment on above: Please Note: New Jane t Units and Gender Specific Reference Ranges. For more information see Policy Stat Procedure [place] High Sensitivity Troponin (TNIH) and attachments. Troponin I High Sensitivity 13 pg/mL 3.0-78.0 [facility] Comment on above: Please Note: New Jane t Units and Gender Specific Reference Ranges. For more information see Policy Stat Procedure [place] High Sensitivity Troponin (TNIH) and attachments. White blood cell (WBC) count Ordered By: ED PROVIDER on 04-07-2024 WBC (Bld) [#/Vol] 10.3 10*3/uL 4.4-11.0 [facility] INR Coag (BldC) [Relative ti me]Ordered By: Susan Biswas on 01-07-2024 INR Coag (Bld) [Relative time] 1.9 {INR} [facility] Comment on above: Critical Value > 4.0 PT Coag (Bld) [Time]Ordered By: Susan Biswas on 01-07-2024 Bedside Prothrombin Time 20.9 SEC High 11.7-14.9 [facility] Protime w/INR Fingerstickon 01-07-2024 INR Coag (PPP) [Relative time] 1.9 {INR} Normal [facility] Comment on above: Result Comment: Crit ical Value > 4.0 Performed By: #### L 501.080 #### [facility] [address] [place], [place], [id number] Protime [place] 20.9 SEC High 11.7-14.9 [facility] Comment on above: Performed By: #### L 501.080 #### [facility] [address] [place], [place], [id number] DOrdered By: Eliu Gil on 01-01-2024 Vitamin D 25-Hydroxy 70.3 ng/mL [facility] Comment on above: Vitamin D 25(OH) Sta tus Range Deficiency <20 ng/mL (50nmol/L) Insufficiency 20 - 30 ng/mL (50 - 75 nmol/L) Sufficiency 30 - 100 ng/mL (75 - 250 nmol/L) Toxicity >100 ng/mL (>250 nmol/L) Absolute neutrophil countOrd ered By: [facility] Evelia Gil on 01-01-2024 Neutrophils (Bld) [#/Vol] 9.6 10*3/uL High 2.0-7.7 [facility] Albumin to globulin ratioOrd ered By: [facility] Evelia Gil on 01-01-2024 Albumin/Globulin [Mass ratio] 0.8 {ratio} Low 0.9-2.4 [facility] Basophil percentageOrdered B y: [facility] Evelia Gil on 01-01-2024 Basophils/100 WBC (Bld) 0.4 % 0-1 [facility] Bilirubin, totalOrdered By: [facility] Evelia Gil on 01-01-2024 Bilirubin [Mass/Vol] 1.00 mg/dL 0.20-1.00 [facility] Comment on above: For patients on eltr ombopag therapy, use of Dimension [place] TBIL is not recommended. Blood urea nitrogen (BUN)/cr eatinine ratioOrdered By: [facility] Evelia Gil on 01-01-2024 Urea nitrogen/Creatinine [Mass ratio] 18.4 mg/mg - [facility] CBC W/Diff, Automatedon 12-19 Absolute Lymph 1.06 X10 3/uL Normal 0.83-4.51 [facility] Comment on above: Performed By: #### L 300.3900 #### [facility] [address] [place], [address] Absolute Neut 9.6 X10 3/uL High 2.0-7.7 [facility] Comment on above: Performed By: #### L 300.3900 #### [facility] [address] [place], [address] Basophils/100 WBC (Bld) 0.4 % Normal 0-1 [facility] Comment on above: Performed By: #### L 300.3900 #### [facility] [address] [place], [address] Eosinophils/100 WBC (Bld) 1.4 % Normal 0-5 [facility] Comment on above: Performed By: #### L 300.3900 #### [facility] [address] [place], [address] Erythrocyte distribution width (RBC) [Ratio] 14.2 % Normal 11.6-14.6 [facility] Comment on above: Performed By: #### L 300.3900 #### [facility] [address] [place], [address] Hematocrit (Bld) [Volume fraction] 41.3 % Normal 40-54 [facility] Comment on above: Performed By: #### L 300.3900 #### [facility] [address] [place], [address] Hemoglobin (Bld) [Mass/Vol] 12.8 g/dL Low 13.0-16.5 [facility] Comment on above: Performed By: #### L 300.3900 #### [facility] [address] [place], [address] IG% 0.300 Normal 0.0-0.9 [facility] Comment on above: Result Comment: IG% - Immature Granulocytes (promyelocytes, myelocytes and metamyelocytes) > 1% indicates that a LEFT SHIFT is Present. Performed By: #### L 300.3900 #### [facility] [address] [place], [address] Lymphocytes/100 WBC (Bld) 9.0 % Low 19-41 [facility] Comment on above: Performed By: #### L 300.3900 #### [facility] [address] [place], [address] MCH (RBC) [Entitic mass] 27.2 pg Normal 27.0-32.0 [facility] Comment on above: Performed By: #### L 300.3900 #### [facility] [address] [place], [address] MCHC (RBC) [Mass/Vol] 31.0 g/dL Low 32-36 [facility] Comment on above: Performed By: #### L [id number] #### [facility] [address] [place], [address] MCV (RBC) [Entitic vol] 87.9 fL Normal 80-94 [facility] Comment on above: Performed By: #### [id number] [id number] #### [facility] [address] [place], [address] Monocytes/100 WBC (Bld) 7.0 % Normal 0-10 [facility] Comment on above: Performed By: #### L [id number] #### [facility] [address] [place], [address] Neutrophils/100 WBC (Bld) 81.9 % High 47-70 [facility] Comment on above: Performed By: #### L 300.3900 #### [facility] [address] [place], [address] Nucleated RBC (Bld) [#/Vol] 0 10*3/uL Normal 0-5 [facility] Comment on above: Performed By: #### L 300.3900 #### [facility] [address] [place], [address] Platelet mean volume (Bld) [Entitic vol] 9.8 fL Normal 6.2-12.0 [facility] Comment on above: Performed By: #### L 300.3900 #### [facility] [address] [place], [address] Platelets (Bld) [#/Vol] 273 10*3/uL Normal 150-450 [facility] Comment on above: Performed By: #### L 300.3900 #### [facility] [address] [place], [address] RBC (Bld) [#/Vol] 4.70 10*6/uL Normal 4.6-6.2 [facility] Comment on above: Performed By: #### L 300.3900 #### [facility] [address] [place], [address] RDW SD 45.6 fl High 35.1-43.9 [facility] Comment on above: Performed By: #### L 300.3900 #### [facility] [address] [place], [address] WBC (Bld) [#/Vol] 11.7 10*3/uL High 4.4-11.0 [facility] Comment on above: Performed By: #### L 300.3900 #### [facility] [address] [place], [place], [id number] Carbon dioxide measurementOr dered By: [facility] Evelia Jeyson on 01-01-2024 CO2 [Moles/Vol] 25.0 mmol/L 21.0-32.0 [facility] Chloride measurementOrdered By: [facility] Evelia Gil on 01-01-2024 Chloride [Moles/Vol] 106 mmol/L 98-107 [facility] Comprehensive Metabolic Prof ilon 01-01-2024 Albumin [Mass/Vol] 3.7 g/dL Normal 3.2-5.0 [facility] Comment on above: Performed By: #### L 300.3900 #### [facility] [address] [place], [place], [id number] Albumin/Globulin [Mass ratio] 0.8 {ratio} Low 0.9-2.4 [facility] Comment on above: Performed By: #### L 300.3900 #### [facility] [address] [place], [place], [id number] ([address] ALK P 120 U/L High 45-117 [facility] Comment on above: Performed By: #### L 300.3900 #### [facility] [address] [place], [place], [id number] ([address] ALT [Catalytic activity/Vol] 21 U/L Normal 16-61 [facility] Comment on above: Performed By: #### L 300.3900 #### [facility] [address] [place], [address] AST [Catalytic activity/Vol] 14 U/L Low 15-37 [facility] Comment on above: Performed By: #### L 300.3900 #### [facility] [address] [place], [place], [id number] Bilirubin [Mass/Vol] 1.00 mg/dL Normal 0.20-1.00 [facility] Comment on above: Result Comment: For patients on eltrombopag therapy, use of Dimension [place] TBIL is not recommended. Performed By: #### L 300.3900 #### [facility] [address] [place], [address] BUN/CRE 18.4 RATIO Normal 10-20 [facility] Comment on above: Performed By: #### L 300.3900 #### [facility] [address] [place], [address] CA,Total 10.2 mg/dL High 8.5-10.1 [facility] Comment on above: Performed By: #### L 300.3900 #### [facility] [address] [place], [address] Chloride [Moles/Vol] 106 mmol/L Normal 98-107 [facility] Comment on above: Performed By: #### L 300.3900 #### [facility] [address] [place], [address] CO2 [Moles/Vol] 25.0 mmol/L Normal 21.0-32.0 [facility] Comment on above: Performed By: #### L 300.3900 #### [facility] [address] [place], [address] Creatinine [Mass/Vol] 0.98 mg/dL Normal 0.70-1.30 [facility] Comment on above: Result Comment: The validity of the calculated GFR GFRAA in patients over 70 years has not been determined. Clinical correlation is essential. Performed By: #### L 300.3900 #### [facility] [address] [place], [address] EST GFR - AA 97 mL/min Normal >60 [facility] Comment on above: Result Comment: Afri can [place] GFR Calc Performed By: #### L 300.3900 #### [facility] [address] [place], [address] GAP 7 Normal 5-15 [facility] Comment on above: Performed By: #### L 300.3900 #### [facility] [address] [place], [address] GFR/1.73 sq M.predicted among non-blacks MDRD (S/P/Bld) [Vol rate/Area] 80 mL/min/{1.73_m2} Normal >60 [facility] Comment on above: Result Comment: Non- GFR Calc Performed By: #### L 300.3900 #### [facility] [address] [place], [address] Globulin (S) [Mass/Vol] 4.6 g/dL High 2.2-4.2 [facility] Comment on above: Performed By: #### L 300.3900 #### [facility] [address] [place], [address] Glucose [Mass/Vol] 120 mg/dL High 74-106 [facility] Comment on above: Result Comment: Fast ing Glucose result from 100 to 125 mg/dL suggests IMPAIRED HOMEOSTASIS per A.D.A. criteria. Performed By: #### L 300.3900 #### [facility] [address] [place], [address] Potassium [Moles/Vol] 4.4 mmol/L Normal 3.5-5.1 [facility] Comment on above: Performed By: #### L 300.3900 #### [facility] [address] [place], [address] Sodium [Moles/Vol] 138 mmol/L Normal 136-145 [facility] Comment on above: Performed By: #### L 300.3900 #### [facility] [address] [place], [address] T PROT 8.3 g/dL High 6.4-8.2 [facility] Comment on above: Performed By: #### L 300.3900 #### [facility] [address] [place], [place], [address] Urea nitrogen [Mass/Vol] 18 mg/dL Normal 7-18 [facility] Comment on above: Performed By: #### L 300.3900 #### [facility] [address] [place], [place], [address] Eosinophil percentageOrdered By: [facility] Evelia Gil on 01-01-2024 Eosinophils/100 WBC (Bld) 1.4 % 0-5 [facility] Erythrocyte distribution wid th ratioOrdered By: [facility] Evelia Gil on 01-01-2024 Erythrocyte distribution width (RBC) [Ratio] 14.2 % 11.6-14.6 [facility] Erythrocyte distribution wid th standard deviationOrdered By: [facility] Evelia Gil on 01-01-2024 Erythrocyte distribution width (RBC) [Entitic vol] 45.6 fL High 35.1-43.9 [facility] Estimated glomerular filtrat ion rate (GFR) AmericanOrdered By: [facility] Evelia Gil on 01-01-2024 Estimated GFR (MDRD) Amer 97 mL/min >60 [facility] Comment on above: GFR Calc Glomerular filtration rate ( GFR) estimationOrdered By: [facility] Evelia Gil on 01-01-2024 Estimated GFR (MDRD) Non-Af Amer 80 mL/min >60 [facility] Comment on above: Non- GFR Calc Glucose measurementOrdered B y: [facility] Evelia Gil on 01-01-2024 Glucose [Mass/Vol] 120 mg/dL High 74-106 [facility] Comment on above: Fasting Glucose resu lt from 100 to 125 mg/dL suggests IMPAIRED HOMEOSTASIS per A.D.A. criteria. Hematocrit Auto (Bld) [Volum e fraction]Ordered By: [facility] Evelia Gil on 01-01-2024 Hematocrit (Bld) [Volume fraction] 41.3 % 40-54 [facility] Hemoglobin measurementOrdere d By: [facility] Evelia Gil on 01-01-2024 Hemoglobin (Bld) [Mass/Vol] 12.8 g/dL Low 13.0-16.5 [facility] Immature granulocytes/100 WB C Auto (Bld)Ordered By: [facility] Evelia Gil on 01-01-2024 Immature granulocytes/100 WBC (Bld) 0.300 % 0.0-0.9 [facility] Comment on above: IG% - Immature Granu locytes (promyelocytes, myelocytes and metamyelocytes) > 1% indicates that a LEFT SHIFT is Present. International normalized rat io (INR) calculationOrdered By: [facility] Evelia Gil on 01-01-2024 INR Coag (Bld) [Relative time] 5.0 {INR} High [facility] - Chemistry and C hemistry - challengeOrdered By: [facility] Evelia Gil on 01-01-2024 AST [Catalytic activity/Vol] 14 U/L Low 15-37 [facility] Lymphocytes Auto (Unsp spec) [#/Vol]Ordered By: [facility] Evelia Gil on 01-01-2024 Lymphocytes (Bld) [#/Vol] 1.06 10*3/uL 0.83-4.51 [facility] Lymphocytes/100 WBC Auto (Un sp spec)Ordered By: [facility] Evelia Gil on 01-01-2024 Lymphocytes/100 WBC (Bld) 9.0 % Low 19-41 [facility] MCV (mean corpuscular volume ) determinationOrdered By: [facility] Evelia Gil on 01-01-2024 MCV (RBC) [Entitic vol] 87.9 fL 80-94 [facility] Mean corpuscular hemoglobin (MCH) determinationOrdered By: [facility] Evelia Gil on 01-01-2024 MCH (RBC) [Entitic mass] 27.2 pg 27.0-32.0 [facility] Mean corpuscular hemoglobin concentration (MCHC) determinationOrdered By: [facility] Evelia Gil on 01-01-2024 MCHC (RBC) [Mass/Vol] 31.0 g/dL Low 32-36 [facility] Mean platelet volume determi nationOrdered By: [facility] Evelia Gil on 01-01-2024 Platelet mean volume (Bld) [Entitic vol] 9.8 fL 6.2-12.0 [facility] Monocyte percentageOrdered B y: [facility] Evelia Gil on 01-01-2024 Monocytes/100 WBC (Bld) 7.0 % 0-10 [facility] Neutrophil percentageOrdered By: [facility] Evelia Jeyson on 01-01-2024 Neutrophils/100 WBC (Bld) 81.9 % High 47-70 [facility] Nucleated red blood cell per centageOrdered By: [facility] Evelia Jeyson on 01-01-2024 Nucleated RBC/100 WBC (Bld) [Ratio] 0 % 0-5 [facility] Platelet countOrdered By: [facility] Eveliacori Gil on 01-01-2024 Platelets (Bld) [#/Vol] 273 10*3/uL 150-450 [facility] Potassium measurementOrdered By: [facility] Evelia Gil on 01-01-2024 Potassium [Moles/Vol] 4.4 mmol/L 3.5-5.1 [facility] Prothrombin Time w/INRon INR Coag (PPP) [Relative time] 5.0 {INR} Invalid Interpretation Code [facility] Comment on above: Order Comment: Comme nts: STANDING ORDER: Fingerstick is OK fax to [phone] Performed By: #### L 300.3900 #### [facility] [address] [place], [place], [id number] PT Coag (PPP) [Time] 45.7 s High 11.7-14.9 [facility] Comment on above: Order Comment: Comme nts: STANDING ORDER: Fingerstick is OK fax to [phone] Performed By: #### L 300.3900 #### [facility] [address] [place], [place], [id number] Prothrombin timeOrdered By: [facility] Eveliacori Gil on 01-01-2024 PT Coag (PPP) [Time] 45.7 s High 11.7-14.9 [facility] RBC Auto (Bld) [#/Vol]Ordere d By: [facility] Eveliacori Gil on 01-01-2024 RBC (Bld) [#/Vol] 4.70 10*6/uL 4.6-6.2 [facility] Serum anion gap measurementO rdered By: [facility] Eveliacori Gil on 01-01-2024 Anion gap [Moles/Vol] 7 mmol/L 5-15 [facility] Serum globulin measurementOr dered By: [facility] Evelia Gil on 01-01-2024 Globulin (S) [Mass/Vol] 4.6 g/dL High 2.2-4.2 [facility] Serum or plasma alanine harden otransferase (ALT) measurementOrdered By: [facility] Evelia Gil on 01-01-2024 ALT [Catalytic activity/Vol] 21 U/L 16-61 [facility] Serum or plasma albumin jocelyn urement (mass/volume)Ordered By: [facility] Evelia Gil on 01-01-2024 Albumin [Mass/Vol] 3.7 g/dL 3.2-5.0 [facility] Serum or plasma alkaline easton sphatase measurementOrdered By: [facility] Evelia Gil on 01-01-2024 ALP [Catalytic activity/Vol] 120 U/L High 45-117 [facility] Serum or plasma calcium jocelyn urement (mass/volume)Ordered By: [facility] Evelia Gil on 01-01-2024 Calcium [Mass/Vol] 10.2 mg/dL High 8.5-10.1 [facility] Serum or plasma creatinine m easurement (mass/volume)Ordered By: [facility] Evelia Gil on 01-01-2024 Creatinine [Mass/Vol] 0.98 mg/dL 0.70-1.30 [facility] Comment on above: The validity of the calculated GFR & GFRAA in patients over 70 years has not been determined. Clinical correlation is essential. Serum or plasma urea nitroge n measurement (mass/volume)Ordered By: [facility] Evelia Gil on 01-01-2024 Urea nitrogen [Mass/Vol] 18 mg/dL 7-18 [facility] Sodium levelOrdered By: [facility] Evelia Gil on 01-01-2024 Sodium [Moles/Vol] 138 mmol/L 136-145 [facility] TSH QnOrdered By: [facility] German Gil on 01-01-2024 Thyroid Stimulating Hormone (TSH) 1.490 uIU/mL 0.358-3.74 0 [facility] Thyroid Stim Hormone (TSH)on 01-01-2024 TSH 1.490 uIU/mL Normal 0.358-3.74 0 [facility] Comment on above: Performed By: #### L 300.3900 #### [facility] [address] [place], [id number] Total proteinOrdered By: [facility] Evelia Jeyson on 01-01-2024 Protein [Mass/Vol] 8.3 g/dL High 6.4-8.2 [facility] Vitamin D,25 Hydroxyon 12-31 Vitamin D 25-OH 70.3 ng/mL Normal [facility] Comment on above: Result Comment: Amie min D 25(OH) Status Range Deficiency <20 ng/mL (50nmol/L) Insufficiency 20 - 30 ng/mL (50 - 75 nmol/L) Sufficiency 30 - 100 ng/mL (75 - 250 nmol/L) Toxicity >100 ng/mL (>250 nmol/L) Performed By: #### L 300.3900 #### [facility] [address] [facility] [place], [id number] White blood cell (WBC) count Ordered By: [facility] Evelia Gil on 01-01-2024 WBC (Bld) [#/Vol] 11.7 10*3/uL High 4.4-11.0 [facility] - CoagulationOrde red By: Aly Ann on 09-14-2022 INR Coag (Bld) [Relative time] 1.7 {INR} [facility] Comment on above: Critical Value > 4.0 Whole blood prothrombin time Ordered By: Aly Ann on 09-14-2022 PT Coag (Bld) [Time] 19.1 s 11.7-14.9 [facility] Basophil percentageOrdered B y: Dr. Womack on 06-14-2022 WBC (Bld) [#/Vol] 10.4 10*3/uL 4.4-11.0 [facility] Basophil percentageOrdered B y: Dr. Ann on 06-14-2022 Bilirubin [Mass/Vol] 1.60 mg/dL 0.20-1.00 [facility] Comment on above: For patients on eltr ombopag therapy, use of Dimension [place] TBIL is not recommended. Chloride [Moles/Vol] 103 mmol/L 98-107 [facility] Glucose [Mass/Vol] 163 mg/dL 74-106 [facility] Comment on above: Fasting Glucose resu lt greater than or equal to 126 mg/dL suggests DIABETES MELLITUS per A.D.A. criteria. Potassium [Moles/Vol] 4.5 mmol/L 3.5-5.1 [facility] Protein [Mass/Vol] 7.6 g/dL 6.4-8.2 [facility] Sodium [Moles/Vol] 135 mmol/L 136-145 [facility] Blood erythrocytes count (nu mber/volume)Ordered By: Dr. Womack on 06-14-2022 RBC (Bld) [#/Vol] 5.40 10*6/uL 4.6-6.2 [facility] Blood hemoglobin measurement (mass/volume)Ordered By: Dr. Womack on 06-14-2022 Hemoglobin (Bld) [Mass/Vol] 14.3 g/dL 13.0-16.5 [facility] Blood platelet mean volumeOr dered By: Dr. Womack on 06-14-2022 Platelet mean volume (Bld) [Entitic vol] 10.4 fL 6.2-12.0 [facility] Determination of erythrocyte mean corpuscular volume (MCV)Ordered By: Dr. Womack on 06-14-2022 MCV (RBC) [Entitic vol] 87.4 fL 80-94 [facility] Hematocrit Auto (Bld) [Volum e fraction]Ordered By: Dr. Womack on 06-14-2022 Hematocrit (Bld) [Volume fraction] 47.2 % 40-54 [facility] INR in Blood by Coagulation assayOrdered By: Dr. Ann on 06-14-2022 INR Coag (Bld) [Relative time] 2.1 {INR} [facility] - Chemistry and C hemistry - challengeOrdered By: Dr. Ann on 06-14-2022 ALP [Catalytic activity/Vol] 116 U/L 45-117 [facility] ALT [Catalytic activity/Vol] 26 U/L 16-61 [facility] CO2 [Moles/Vol] 31.0 mmol/L 21.0-32.0 [facility] Globulin (S) [Mass/Vol] 4.0 g/dL 2.2-4.2 [facility] Urea nitrogen/Creatinine [Mass ratio] 15.1 mg/mg 10-20 [facility] - CoagulationOrde red By: Dr. Ann on 06-14-2022 PT Coag (PPP) [Time] 23.0 s 11.7-14.9 [facility] - Hematology and Cell countsOrdered By: Dr. Womack on 06-14-2022 Erythrocyte distribution width (RBC) [Entitic vol] 49.1 fL 35.1-43.9 [facility] Erythrocyte distribution width (RBC) [Ratio] 15.4 % 11.6-14.6 [facility] MCH (RBC) [Entitic mass] 26.5 pg 27.0-32.0 [facility] MCHC Auto (RBC) [Mass/Vol]Or dered By: Dr. Womack on 06-14-2022 MCHC (RBC) [Mass/Vol] 30.3 g/dL 32-36 [facility] No Panel InformationOrdered By: Dr. Womack on 06-14-2022 Parathyroid Hormone (Intact) 73.0 pg/mL 18.4-80.1 [facility] Vitamin D 25-Hydroxy 74.7 ng/mL [facility] Comment on above: Vitamin D 25(OH) Sta tus Range Deficiency <20 ng/mL (50nmol/L) Insufficiency 20 - 30 ng/mL (50 - 75 nmol/L) Sufficiency 30 - 100 ng/mL (75 - 250 nmol/L) Toxicity >100 ng/mL (>250 nmol/L) No Panel InformationOrdered By: Dr. Ann on 06-14-2022 Estimated GFR (MDRD) Amer 103 mL/min >60 [facility] Comment on above: GFR Calc Estimated GFR (MDRD) Non-Af Amer 85 mL/min >60 [facility] Comment on above: Non- GFR Calc Platelets bldOrdered By: Dr. Womack on 06-14-2022 Platelets (Bld) [#/Vol] 270 10*3/uL 150-450 [facility] Serum or plasma albumin jocelyn urement (mass/volume)Ordered By: Dr. Ann on 06-14-2022 Albumin [Mass/Vol] 3.6 g/dL 3.2-5.0 [facility] Serum or plasma albumin/glob ulin mass ratioOrdered By: Dr. Ann on 06-14-2022 Albumin/Globulin [Mass ratio] 0.9 {ratio} 0.9-2.4 [facility] Serum or plasma calcium jocelyn urement (mass/volume)Ordered By: Dr. Ann on 06-14-2022 Calcium [Mass/Vol] 10.4 mg/dL 8.5-10.1 [facility] Serum or plasma creatinine m easurement (mass/volume)Ordered By: Dr. Ann on 06-14-2022 Creatinine [Mass/Vol] 0.93 mg/dL 0.70-1.30 [facility] Comment on above: The validity of the calculated GFR & GFRAA in patients over 70 years has not been determined. Clinical correlation is essential. Serum or plasma urea nitroge n measurement (mass/volume)Ordered By: Dr. Ann on 06-14-2022 Urea nitrogen [Mass/Vol] 14 mg/dL 7-18 [facility] Thin prep Papanicolaou smear with manual screeningOrdered By: Dr. Ann on 06-14-2022 Thin prep Papanicolaou smear with manual screening 14 U/L 15-37 [facility] Thin prep Papanicolaou smear with manual screening 1 5-15 [facility] Thin prep Papanicolaou smear with manual screening 219.0 mg/L NO RANGE EST. [facility] Urine creatinine measurement (mass/volume)Ordered By: Dr. Womack on 06-14-2022 Creatinine (U) [Mass/Vol] 42.50 mg/dL NO RANGE EST. [facility] Urine protein measurement (m ass/volume)Ordered By: Dr. Womack on 06-14-2022 Protein (U) [Mass/Vol] 46.0 mg/dL 0.0-11.8 [facility] Urine protein/creatinine mas s ratioOrdered By: Dr. Womack on 06-14-2022 Protein/Creatinine (U) [Mass ratio] 1082 mg/g CRE 0-200 [facility] - Coagulationon 1 2-19-2022 INR Coag (Bld) [Relative time] 1.6 {INR} [facility] Work Phone: Comment on above: Critical Value > 4.0 Whole blood prothrombin time on 02-05-2022 PT Coag (Bld) [Time] 19.3 s 11.7-14.9 [facility] Work Phone: Laboratory - Coagulationon 1 03-19-2021 INR Coag (Bld) [Relative time] 2.5 {INR} [facility] Work Phone: Comment on above: Critical Value > 4.0 Whole blood prothrombin time on 01-17-2022 PT Coag (Bld) [Time] 29.5 s 11.7-14.9 [facility] Work Phone: No Panel Informationon 12-14 INR International Normalized Ratio 1.4 [facility] Work Phone: Basophil percentageon 2021 Chloride [Moles/Vol] 100 mmol/L 98-107 [facility] Work Phone: Glucose [Mass/Vol] 184 mg/dL 74-106 [facility] Work Phone: Comment on above: Fasting Glucose resu lt greater than or equal to 126 mg/dL suggests DIABETES MELLITUS per A.D.A. criteria. Potassium [Moles/Vol] 3.8 mmol/L 3.5-5.1 [facility] Work Phone: Sodium [Moles/Vol] 136 mmol/L 136-145 [facility] Work Phone: INR in Blood by Coagulation assayon 12-07-2021 INR Coag (Bld) [Relative time] 1.4 {INR} [facility] Work Phone: Laboratory - Chemistry and C hemistry - challengeon 12-07-2021 CO2 [Moles/Vol] 29.0 mmol/L 21.0-32.0 [facility] Work Phone: Urea nitrogen/Creatinine [Mass ratio] 13.0 mg/mg 12-07 [facility] Work Phone: Laboratory - Coagulationon 1 PT Coag (PPP) [Time] 17.1 s 11.7-14.9 [facility] Work Phone: No Panel Informationon 12-07 Estimated GFR (MDRD) Amer 87 mL/min >60 [facility] Work Phone: Comment on above: GFR Calc Estimated GFR (MDRD) Non-Af Amer 72 mL/min >60 [facility] Work Phone: Comment on above: Non- GFR Calc Serum or plasma calcium jocelyn urement (mass/volume)on 12-07-2021 Calcium [Mass/Vol] 10.3 mg/dL 8.5-10.1 [facility] Work Phone: Serum or plasma creatinine m easurement (mass/volume)on 12-07-2021 Creatinine [Mass/Vol] 1.08 mg/dL 0.70-1.30 [facility] Work Phone: Comment on above: The validity of the calculated GFR & GFRAA in patients over 70 years has not been determined. Clinical correlation is essential. Serum or plasma urea nitroge n measurement (mass/volume)on 12-07-2021 Urea nitrogen [Mass/Vol] 14 mg/dL -18 [facility] Work Phone: Thin prep Papanicolaou smear with manual screeningon 12-07-2021 Thin prep Papanicolaou smear with manual screening 7 5-15 [facility] Work Phone: Urine creatinine measurement (mass/volume)on 12-07-2021 Creatinine (U) [Mass/Vol] 41.30 mg/dL NO RANGE EST. [facility] Work Phone: Urine protein measurement (m ass/volume)on 12-07-2021 Protein (U) [Mass/Vol] 43.4 mg/dL 0.0-11.8 [facility] Work Phone: Urine protein/creatinine mas s ratioon 12-07-2021 Protein/Creatinine (U) [Mass ratio] 1051 mg/g CRE 0-200 [facility] Work Phone: Whole blood prothrombin time on 11-30-2021 PT Coag (Bld) [Time] 15.5 s 11.7-14.9 [facility] Work Phone: Basophil percentageon 2021 Chloride [Moles/Vol] 105 mmol/L 98-107 [facility] Work Phone: Glucose [Mass/Vol] 139 mg/dL 74-106 [facility] Work Phone: Comment on above: Fasting Glucose resu lt greater than or equal to 126 mg/dL suggests DIABETES MELLITUS per A.D.A. criteria. Potassium [Moles/Vol] 3.7 mmol/L 3.5-5.1 [facility] Work Phone: Sodium [Moles/Vol] 139 mmol/L 136-145 [facility] Work Phone: Iron measurement (mass/mass) on 07-21-2021 Iron (Unsp spec) [Mass/Mass] 39 ug/dL 65-175 [facility] Work Phone: Laboratory - Chemistry and C hemistry - challengeon 07-21-2021 CO2 [Moles/Vol] 26.0 mmol/L 21.0-32.0 [facility] Work Phone: Cobalamin (Vitamin B12) [Mass/Vol] 727 pg/mL 211-911 [facility] Work Phone: Magnesium [Mass/Vol] 1.7 mg/dL 1.6-2.6 [facility] Work Phone: Natriuretic peptide B (Bld) [Mass/Vol] 167.3 pg/mL 0-100 [facility] Work Phone: [phone] Urea nitrogen/Creatinine [Mass ratio] 13.7 mg/mg 10-20 [facility] Work Phone: No Panel Informationon 07-21 Estimated GFR (MDRD) Amer 79 mL/min >60 [facility] Work Phone: Comment on above: GFR Calc Estimated GFR (MDRD) Non-Af Amer 65 mL/min >60 [facility] Work Phone: Comment on above: Non- GFR Calc Thyroid Stimulating Hormone (TSH) 1.88 uIU/mL 0.358-3.74 [facility] Work Phone: Total Iron Binding Capacity 347 ug/dL 250-450 [facility] Work Phone: Vitamin D 25-Hydroxy 84.9 ng/mL [facility] Work Phone: Comment on above: Vitamin D 25(OH) Sta tus Range Deficiency <20 ng/mL (50nmol/L) Insufficiency 20 - 30 ng/mL (50 - 75 nmol/L) Sufficiency 30 - 100 ng/mL (75 - 250 nmol/L) Toxicity >100 ng/mL (>250 nmol/L) Serum or plasma calcium jocelyn urement (mass/volume)on 07-21-2021 Calcium [Mass/Vol] 9.6 mg/dL 8.5-10.1 [facility] Work Phone: Serum or plasma creatinine m easurement (mass/volume)on 07-21-2021 Creatinine [Mass/Vol] 1.17 mg/dL 0.70-1.30 [facility] Work Phone: Comment on above: The validity of the calculated GFR & GFRAA in patients over 70 years has not been determined. Clinical correlation is essential. Serum or plasma folate measu rement (mass/volume)on 07-21-2021 Folate [Mass/Vol] 15.50 ng/mL 3.1-55.4 [facility] Work Phone: Serum or plasma urea nitroge n measurement (mass/volume)on 07-21-2021 Urea nitrogen [Mass/Vol] 16 mg/dL 7-18 [facility] Work Phone: Thin prep Papanicolaou smear with manual screeningon 07-21-2021 Thin prep Papanicolaou smear with manual screening 8 5-15 [facility] Work Phone: Basophil percentageon 2021 Potassium [Moles/Vol] 3.7 mmol/L 3.5-5.1 [facility] Work Phone: [phone] Absolute lymphocyte counton 04-12-2021 Lymphocytes Auto (Unsp spec) [#/Vol] 1.60 10*3/uL 0.83-4.51 [facility] Work Phone: Basophil percentageon 2021 Basophils/100 WBC (Bld) 0.4 % 0-1 [facility] Work Phone: [phone] Bilirubin [Mass/Vol] 0.30 mg/dL 0.20-1.00 [facility] Work Phone: [phone] Comment on above: For patients on eltr ombopag therapy, use of Dimension [place] TBIL is not recommended. Chloride [Moles/Vol] 105 mmol/L 98-107 [facility] Work Phone: Cholesterol [Mass/Vol] 151 mg/dL <200 [facility] Work Phone: Comment on above: <200 mg/dL Desirable 200-240 mg/dL Borderline >240 mg/dL High Risk Eosinophils/100 WBC (Bld) 2.1 % 0-5 [facility] Work Phone: Glucose [Mass/Vol] 117 mg/dL 74-106 [facility] Work Phone: Comment on above: Fasting Glucose resu lt from 100 to 125 mg/dL suggests IMPAIRED HOMEOSTASIS per A.D.A. criteria. Neutrophils (Bld) [#/Vol] 7.8 10*3/uL 2.0-7.7 [facility] Work Phone: [phone] Neutrophils/100 WBC (Bld) 76.2 % 47-70 [facility] Work Phone: [phone] Potassium [Moles/Vol] 3.1 mmol/L 3.5-5.1 [facility] Work Phone: Protein [Mass/Vol] 7.1 g/dL 6.4-8.2 [facility] Work Phone: Sodium [Moles/Vol] 141 mmol/L 136-145 [facility] Work Phone: Triglyceride [Mass/Vol] 91 mg/dL [facility] Work Phone: [phone] Comment on above: The drugs N-Acetylcy steine and Metamizole may falsely depress this assay.Serum Triglycerides Reference Interval Normal <150 mg/dL Borderline high 150 - 199 mg/dL High 200 - 499 mg/dL Very High > or = 500 mg/dL WBC (Bld) [#/Vol] 10.3 10*3/uL 4.4-11.0 [facility] Work Phone: [phone] Blood erythrocytes count (nu mber/volume)on 04-12-2021 RBC (Bld) [#/Vol] 3.88 10*6/uL 4.6-6.2 [facility] Work Phone: [phone] Blood hemoglobin measurement (mass/volume)on 04-12-2021 Hemoglobin (Bld) [Mass/Vol] 11.2 g/dL 13.0-16.5 [facility] Work Phone: Blood lymphocytes/100 leukoc yteson 04-12-2021 Lymphocytes/100 WBC (Bld) 15.5 % 19-41 [facility] Work Phone: Blood monocytes/100 leukocyt eson 04-12-2021 Monocytes/100 WBC (Bld) 5.3 % 0-10 [facility] Work Phone: Blood platelet mean volumeon 04-12-2021 Platelet mean volume (Bld) [Entitic vol] 9.9 fL 6.2-12.0 [facility] Work Phone: [phone] Determination of erythrocyte mean corpuscular volume (MCV)on 04-12-2021 MCV (RBC) [Entitic vol] 86.6 fL 80-94 [facility] Work Phone: Hematocrit Auto (Bld) [Volum e fraction]on 04-12-2021 Hematocrit (Bld) [Volume fraction] 33.6 % 40-54 [facility] Work Phone: [phone] Iron measurement (mass/mass) on 04-12-2021 Iron (Unsp spec) [Mass/Mass] 42 ug/dL 65-175 [facility] Work Phone: Laboratory - Chemistry and C hemistry - challengeon 04-12-2021 ALP [Catalytic activity/Vol] 65 U/L 45-117 [facility] Work Phone: ALT [Catalytic activity/Vol] 16 U/L 16-61 [facility] Work Phone: CO2 [Moles/Vol] 32.0 mmol/L 21.0-32.0 [facility] Work Phone: [phone] Cobalamin (Vitamin B12) [Mass/Vol] 208 pg/mL 211-911 [facility] Work Phone: [phone] Globulin (S) [Mass/Vol] 3.9 g/dL 2.2-4.2 [facility] Work Phone: [phone] Urea nitrogen/Creatinine [Mass ratio] 16.4 mg/mg 10-20 [facility] Work Phone: [phone] Laboratory - Hematology and Cell countson 04-12-2021 Erythrocyte distribution width (RBC) [Entitic vol] 42.7 fL 35.1-43.9 [facility] Work Phone: [phone] Erythrocyte distribution width (RBC) [Ratio] 13.6 % 11.6-14.6 [facility] Work Phone: [phone] Immature granulocytes/100 WBC (Bld) 0.500 % 0.0-0.9 [facility] Work Phone: [phone] Comment on above: IG% - Immature Granu locytes (promyelocytes, myelocytes and metamyelocytes) > 1% indicates that a LEFT SHIFT is Present. MCH (RBC) [Entitic mass] 28.9 pg 27.0-32.0 [facility] Work Phone: [phone] Nucleated RBC/100 WBC (Bld) [Ratio] 0 % 0-5 [facility] Work Phone: MCHC Auto (RBC) [Mass/Vol]on 04-12-2021 MCHC (RBC) [Mass/Vol] 33.3 g/dL 32-36 [facility] Work Phone: No Panel Informationon 04-12 Estimated GFR (MDRD) Amer 85 mL/min >60 [facility] Work Phone: Comment on above: GFR Calc Estimated GFR (MDRD) Non-Af Amer 70 mL/min >60 [facility] Work Phone: Comment on above: Non- GFR Calc Total Iron Binding Capacity 254 ug/dL 250-450 [facility] Work Phone: Platelets bldon 04-12-2021 Platelets (Bld) [#/Vol] 329 10*3/uL 150-450 [facility] Work Phone: Serum or plasma albumin jocelyn urement (mass/volume)on 04-12-2021 Albumin [Mass/Vol] 3.2 g/dL 3.2-5.0 [facility] Work Phone: Serum or plasma albumin/glob ulin mass ratioon 04-12-2021 Albumin/Globulin [Mass ratio] 0.8 {ratio} 0.9-2.4 [facility] Work Phone: Serum or plasma calcitriol m easurement (mass/volume)on 04-12-2021 1,25-dihydroxyvitamin D3 [Mass/Vol] 13.1 pg/mL [facility] Work Phone: Comment on above: Performed at: [facility] [address] [id number] Director: Haily Solitario MD, Phone: [phone] Serum or plasma calcium jocelyn urement (mass/volume)on 04-12-2021 Calcium [Mass/Vol] 10.4 mg/dL 8.5-10.1 [facility] Work Phone: Serum or plasma cholesterol in HDL measurement (mass/volume)on 04-12-2021 Cholesterol in HDL [Mass/Vol] 35 mg/dL [facility] Work Phone: Comment on above: The drugs N-Acetylcy steine and Metamizole may falsely depress this assay. Reference Range HDL <40 mg/dL Low HDL Cholesterol HDL >or= 60 mg/dL High HDL Cholesterol Serum or plasma cholesterol in VLDL measurement (mass/volume)on 04-12-2021 Cholesterol in VLDL [Mass/Vol] 18 mg/dL 5-40 [facility] Work Phone: Serum or plasma creatinine m easurement (mass/volume)on 04-12-2021 Creatinine [Mass/Vol] 1.10 mg/dL 0.70-1.30 [facility] Work Phone: Comment on above: The validity of the calculated GFR & GFRAA in patients over 70 years has not been determined. Clinical correlation is essential. Serum or plasma low density lipoprotein (LDL) cholesterol measurement (mass/volume)on 04-12-2021 Cholesterol in LDL [Mass/Vol] 98 mg/dL 0-130 [facility] Work Phone: Serum or plasma urea nitroge n measurement (mass/volume)on 04-12-2021 Urea nitrogen [Mass/Vol] 18 mg/dL 7-18 [facility] Work Phone: Thin prep Papanicolaou smear with manual screeningon 04-12-2021 Thin prep Papanicolaou smear with manual screening 9 U/L 15-37 [facility] Work Phone: Thin prep Papanicolaou smear with manual screening 4 5-15 [facility] Work Phone: Vital Signs Date Time Vital Sign Value Performing Clinician Faci lity 11-25-2024 13:10040 Body height 172.72 cm Susan ELLIOTT Work Phone: [facility] 11-25-2024 13:10040 Body mass index (BMI) [Ratio] 36.9 kg/m2 Susan ELLIOTT Work Phone: [facility] 11-25-2024 13:100400 Body weight 110.22 kg Susan ELLIOTT Work Phone: [facility] 11-25-2024 13:10-0400 Diastolic blood pressure 75 mm[Hg] Susan ELLIOTT Work Phone: [facility] 11-25-2024 13:10-0400 Heart rate 62 /min Susan Biswas PA Work Phone: [facility] 11-25-2024 13:10-0400 Respiratory rate 20 /min Susan Biswas PA Work Phone: [facility] 11-25-2024 13:10-0400 SaO2% (BldA) [Mass fraction] 93 % Susan Biswas PA Work Phone: [facility] 11-25-2024 13:10-0400 Systolic blood pressure 118 mm[Hg] Susan ELLIOTT Work Phone: [facility] 09-11-2024 14:13-0400 Body height 172.72 cm Evelia Gil [employer] Work Phone: [facility] 09-11-2024 14:13-0400 Body mass index (BMI) [Ratio] 34.9 kg/m2 Evelia Gil [employer] Work Phone: [facility] 09-11-2024 14:13-0400 Body weight 104.32 kg Evelia Gil [employer] Work Phone: [facility] 09-11-2024 14:13-0400 Diastolic blood pressure 72 mm[Hg] Evelia Gil [employer] Work Phone: [facility] 09-11-2024 14:13-0400 Heart rate 90 /min Evelia Gil [employer] Work Phone: [facility] 09-11-2024 14:13-0400 Respiratory rate 18 /min Evelia Gil [employer] Work Phone: [facility] 09-11-2024 14:13-0400 SaO2% (BldA) [Mass fraction] 90 % Evelia Gil [employer] Work Phone: 2(289)786-814197 [place] [address] 09-11-2024 14:13-0400 Systolic blood pressure 118 mm[Hg] Evelia Gil [employer] Work Phone: 2(348)095-407697 [place] [address] 07-07-2024 07:23-0400 Body mass index (BMI) [Ratio] 35.4 kg/m2 Evelia Gil [employer] Work Phone: 7(445)950-049797 [place] [address] 07-07-2024 07:23-0400 Body weight 105.68 kg Evelia Gil [employer] Work Phone: 8(040)004-198397 [place] [address] 07-07-2024 07:23-0400 Diastolic blood pressure 74 mm[Hg] Evelia Gil [employer] Work Phone: 4(028)071-201097 [place] [address] 07-07-2024 07:23-0400 Heart rate 66 /min Evelia Gil [employer] Work Phone: 6(585)940-549297 [place] [address] 07-07-2024 07:23-0400 Respiratory rate 18 /min Evelia Gil [employer] Work Phone: 1(769)162-066997 [place] [address] 07-07-2024 07:23-0400 SaO2% (BldA) [Mass fraction] 96 % Evelia Gil [employer] Work Phone: 2(819)615-308397 [place] [address] 07-07-2024 07:23-0400 Systolic blood pressure 111 mm[Hg] Evelia Gil [employer] Work Phone: 7(993)198-569497 [place] [address] 04-28-2024 10:00-0400 Inhaled oxygen flow rate 2 L/min Evelia Gil [employer] Work Phone: 2(262)499-105997 [place] [address] 04-28-2024 09:05-0400 Heart rate 82 /min Evleia Gil [employer] Work Phone: 6(858)880-782997 [place] [address] 04-28-2024 08:53-0400 Body temperature 97.7 [degF] Evelia Gil [employer] Work Phone: 9(429)911-258197 [place] [address] 04-28-2024 08:53-0400 Diastolic blood pressure 82 mm[Hg] Evelia Gil [employer] Work Phone: 8(819)364-291244 [place] [address] 04-28-2024 08:53-0400 Respiratory rate 20 /min Evelia Gil [employer] Work Phone: 9(806)802-384244 [place] [address] 04-28-2024 08:53-0400 SaO2% (BldA) [Mass fraction] 98 % Evelia Gil [employer] Work Phone: 9(341)153-640644 [place] [address] 04-28-2024 08:53-0400 Systolic blood pressure 126 mm[Hg] Evelia Gil [employer] Work Phone: 6(183)158-957844 [place] [address] 04-26-2024 11:57-0400 Body height 172.72 cm Evelia Gil [employer] Work Phone: 6(486)372-525897 [place] [address] 04-26-2024 11:57-0400 Body weight 103.4 kg Evelia Gil [employer] Work Phone: 9(053)254-690197 [place] [address] 04-25-2024 20:16-0500 Body mass index (BMI) [Ratio] 34.6 kg/m2 Evelia Gil [employer] Work Phone: 3(403)151-006844 [place] [address] 04-25-2024 19:32-0500 Body temperature 98.4 [degF] Evelia Gil [employer] Work Phone: 6(728)907-577997 [place] [address] 04-25-2024 19:32-0500 Diastolic blood pressure 70 mm[Hg] Evelia Gil [employer] Work Phone: 9(795)200-579044 [place] [address] 04-25-2024 19:32-0500 Heart rate 91 /min Evelia Gil [employer] Work Phone: 9(169)446-343844 [place] [address] 04-25-2024 19:32-0500 Respiratory rate 18 /min Evelia Gil [employer] Work Phone: 9(606)074-142397 [place] [address] 04-25-2024 19:32-0500 SaO2% (BldA) [Mass fraction] 97 % Evelia Gil [employer] Work Phone: 9(414)402-848644 [place] [address] 04-25-2024 19:32-0500 Systolic blood pressure 142 mm[Hg] Evelia Gil [employer] Work Phone: 5(559)754-838744 [place] [address] 04-25-2024 16:50-0500 Body mass index (BMI) [Ratio] 33.2 kg/m2 Evelia Gil [employer] Work Phone: 7(239)379-405644 [place] [address] 04-25-2024 16:50-0500 Body weight 107.95 kg Evelia Gil [employer] Work Phone: 3(952)982-006240 [address] 04-25-2024 16:30-0500 Body height 180.34 cm Evelia Gil [employer] Work Phone: 2(606)705-272144 [place] [address] 04-07-2024 18:00-0500 Body temperature 98.3 [degF] Evelia Gil [employer] Work Phone: 5(615)350-380297 [place] [address] 04-07-2024 18:00-0500 Diastolic blood pressure 100 mm[Hg] Evelia Gil [employer] Work Phone: 6(728)600-583944 [place] [address] 04-07-2024 18:00-0500 Heart rate 88 /min Evelia Gil [employer] Work Phone: 7(785)723-187444 [place] [address] 04-07-2024 18:00-0500 Inhaled oxygen flow rate 2 L/min Evelia Gil [employer] Work Phone: 6(613)399-704397 [place] [address] 04-07-2024 18:00-0500 Respiratory rate 19 /min Evelia Gil [employer] Work Phone: 6(398)354-121544 [place] [address] 04-07-2024 18:00-0500 SaO2% (BldA) [Mass fraction] 95 % Evelia Gil [employer] Work Phone: 6(569)537-932144 [place] [address] 04-07-2024 18:00-0500 Systolic blood pressure 146 mm[Hg] Evelia Gil [employer] Work Phone: 2(010)744-403597 [place] [address] 04-07-2024 16:11-0500 Body mass index (BMI) [Ratio] 34.4 kg/m2 Evelia Gil [employer] Work Phone: 0(606)993-636140 [address] 04-07-2024 16:11-0500 Body weight 111.6 kg Evelia Gil [employer] Work Phone: 6(756)268-246297 [place] [address] 09-14-2022 13:27-0400 Body height 172.72 cm [facility] Work Phone: 4(520)010-599097 [place] [address] 09-14-2022 13:27-0400 Body mass index (BMI) [Ratio] 36 kg/m2 [facility] Work Phone: 0(785)489-490697 [place] [address] 09-14-2022 13:27-0400 Body weight 107.5 kg [facility] Work Phone: 5(631)330-812297 [place] [address] 09-14-2022 13:27-0400 Diastolic blood pressure 85 mm[Hg] [facility] Work Phone: 4(491)481-374597 [place] [address] 09-14-2022 13:27-0400 Heart rate 88 /min [facility] Work Phone: 2(920)478-764897 [place] [address] 09-14-2022 13:27-0400 Respiratory rate 22 /min [facility] Work Phone: 2(121)284-653597 [place] [address] 09-14-2022 13:27-0400 SaO2% (BldA) [Mass fraction] 94 % [facility] Work Phone: 7(177)490-616997 [place] [address] 09-14-2022 13:27-0400 Systolic blood pressure 133 mm[Hg] [facility] Work Phone: 9(901)798-482197 [place] [address] 03-08-2022 06:18-0500 Body height 172.72 cm [facility] Work Phone: 7(284)130-918797 [place] [address] 03-08-2022 06:18-0500 Body mass index (BMI) [Ratio] 38.7 kg/m2 [facility] Work Phone: 8(996)504-334197 [place] [address] 03-08-2022 06:18-0500 Body temperature 97.8 [degF] [facility] Work Phone: 3(418)863-037797 [place] [address] 03-08-2022 06:18-0500 Body weight 115.66 kg [facility] Work Phone: 3(862)231-468397 [place] [address] 03-08-2022 06:18-0500 Diastolic blood pressure 82 mm[Hg] [facility] Work Phone: 5(844)197-576144 [place] [address] 03-08-2022 06:18-0500 Heart rate 79 /min [facility] Work Phone: 7(833)726-529740 [address] 03-08-2022 06:18-0500 Respiratory rate 18 /min [facility] Work Phone: 0(609)568-640340 [address] 03-08-2022 06:18-0500 SaO2% (BldA) [Mass fraction] 92 % [facility] Work Phone: 3(692)096-565640 [address] 03-08-2022 06:18-0500 Systolic blood pressure 126 mm[Hg] [facility] Work Phone: 1(162)797-868240 [address] 01-30-2022 13:57-0500 Body height 172.72 cm [facility] Work Phone: [facility] Work Phone: 01-30-2022 13:57-0500 Body weight 113.46 kg [facility] Work Phone: [facility] Work Phone: 01-30-2022 13:57-0500 Heart rate 85 /min [facility] Work Phone: [facility] Work Phone: 01-30-2022 13:57-0500 SaO2% (BldA) [Mass fraction] 96 % [facility] Work Phone: [facility] Work Phone: 01-09-2022 12:30-0500 Body mass index (BMI) [Ratio] 23.5 kg/m2 [facility] Work Phone: [facility] Work Phone: 01-09-2022 12:30-0500 Body weight 68.03 kg [facility] Work Phone: [facility] Work Phone: 01-09-2022 12:30-0500 Diastolic blood pressure 76 mm[Hg] [facility] Work Phone: [facility] Work Phone: 01-09-2022 12:30-0500 Heart rate 74 /min [facility] Work Phone: [facility] Work Phone: 01-09-2022 12:30-0500 SaO2% (BldA) [Mass fraction] 94 % [facility] Work Phone: [facility] Work Phone: 01-09-2022 12:30-0500 Systolic blood pressure 123 mm[Hg] [facility] Work Phone: [facility] Work Phone: 11-08-2021 13:19-0400 Body height 170.18 cm [facility] Work Phone: [facility] Work Phone: 11-08-2021 13:19-0400 Body mass index (BMI) [Ratio] 38.5 kg/m2 [facility] Work Phone: [facility] Work Phone: 11-08-2021 13:19-0400 Body weight 111.58 kg [facility] Work Phone: [facility] Work Phone: 11-08-2021 13:19-0400 Diastolic blood pressure 78 mm[Hg] [facility] Work Phone: [facility] Work Phone: 11-08-2021 13:19-0400 Heart rate 92 /min [facility] Work Phone: [facility] Work Phone: 11-08-2021 13:19-0400 Respiratory rate 18 /min [facility] Work Phone: [facility] Work Phone: 11-08-2021 13:19-0400 SaO2% (BldA) [Mass fraction] 95 % [facility] Work Phone: [facility] Work Phone: 11-08-2021 13:19-0400 Systolic blood pressure 129 mm[Hg] [facility] Work Phone: [facility] Work Phone: Encounters Encounter Date Encounter Type Care Provider Facility Start: 12-19-2024 ambulatory Linwood Beam Facility:[facility] Start: 11-25-2024 End: 11-25-2024 Patient encounter procedure Susan ELLIOTT -[facility] Work Phone: Start: 11-25-2024 Registered Recurring Susan Biswas PA -Laboratory Work Phone: Start: 11-25-2024 End: 11-25-2024 ambulatory Susan ELLIOTT Work Phone: -[facility] Start: 09-11-2024 End: 09-11-2024 ambulatory Evelia Gil J[employer] DEVELOPER[employer]C Work Phone: -Radiology [facility] Start: 09-11-2024 End: 09-11-2024 Patient encounter procedure Susan ELLIOTT -Radiology [facility] Work Phone: Start: 09-11-2024 End: 09-11-2024 Patient encounter procedure Susan ELLIOTT -[facility] Work Phone: Start: 09-11-2024 End: 09-11-2024 ambulatory Evelia Gil J[employer]EE DEVELOPER[employer]C Work Phone: -[facility] Start: 09-11-2024 End: 09-11-2024 ambulatory Susan ELLIOTT Facility:[facility] Start: 09-09-2024 End: 09-17-2024 ambulatory Evelia Gil [employer]EL[employer] Work Phone: -Laboratory Start: 09-09-2024 End: 09-17-2024 Discharged Recurring Susan Biswas PA -Laboratory Work Phone: Start: 09-09-2024 Registered Recurring Susan Biswas PA -Laboratory Work Phone: Start: 07-07-2024 End: 07-07-2024 Discharged Recurring Susan Biswas PA -Laboratory Work Phone: Start: 07-07-2024 End: 07-07-2024 Patient encounter procedure Tanner Nunoanjali PA -[facility] Work Phone: Start: 07-07-2024 End: 07-07-2024 ambulatory Evelia Gil J2EE DEVELOPER-C Work Phone: [facility] Work Phone: Start: 05-12-2024 End: 05-12-2024 [facility] Work Phone: [facility] Work Phone: Start: 05-12-2024 End: 05-12-[address] Curly Perea MD -Laboratory, [facility] Start: 05-12-2024 End: 05-12-2024 ambulatory [facility] Facility:[facility] Start: 05-05-2024 End: 05-05-2024 ambulatory Evelia Jeyson [employer]EE DEVELOPER[employer]C Work Phone: [facility] Work Phone: Start: 05-05-2024 End: 05-05-2024 Patient encounter procedure Geoffrey Cowart NP-C -Laboratory, Sunita Whitten Start: 05-05-2024 End: 05-05-2024 [facility] Start: 04-28-2024 ambulatory [facility] Fa cility:[facility] Start: 04-28-2024 Non-patient / Non-visit Dr. Luis Nieto [facility] Work Phone: Start: 04-27-2024 Non-patient / Non-visit Dr. Luis Nieto [facility] Work Phone: Start: 04-27-2024 ambulatory [facility] Fa cility:[facility] Start: 04-27-2024 Non-patient / Non-visit Dr. Deedee Torres MD -[facility] Start: 04-26-2024 Non-patient / Non-visit Dr. Nba Seth MD -[facility] Work Phone: Start: 04-25-2024 ambulatory [facility] Fa cility:[facility] Start: 04-25-2024 End: 04-28-2024 Evaluation and management of inpatient Dr. Hubert Hastings DO -Progressive Care Unit Work Phone: Start: 04-07-2024 End: 04-07-2024 Emergency department patient visit Dr. Carlos Wang DO -Emergency Department Work Phone: Start: 01-07-2024 End: 2024 Discharged Recurring Susan Biswas PA -Laboratory Work Phone: Start: 01-07-2024 End: 2024 ambulatory [facility] Facility:[facility] Start: 01-01-2024 End: 01-01-2024 Patient encounter procedure [facility] J2EE DEVELOPER-C -Laboratory, [facility] Start: 01-01-2024 End: 01-01-2024 ambulatory [facility] Facility:[facility] Start: 10-17-2022 End: 10-17-[address] [facility] Work Phone: [facility] Work Phone: Start: 10-17-2022 End: 10-17-2022 Discharged Recurring [facility] Work Phone: [facility]-Laboratory Work Phone: Start: 09-14-2022 End: 09-17-2022 amb[address] [facility] Work Phone: [facility] Work Phone: Start: 09-14-2022 End: 09-17-2022 Discharged Recurring [facility] Work Phone: [facility]-Laboratory Work Phone: Start: 09-14-2022 End: 09-14-2022 Patient encounter procedure [facility] Work Phone: [facility] Work Phone: Start: 06-14-2022 End: 06-17-2022 amb[address] [facility] Work Phone: [facility] Work Phone: Start: 06-14-2022 End: 06-17-2022 Discharged Recurring [facility] Work Phone: [facility]-Laboratory Start: 03-08-2022 End: 03-08-2022 Patient encounter procedure [facility] Work Phone: [facility]-Pulmonary Medicine [facility] Start: 02-05-2022 Non-patient / Non-visit [facility] Work Phone: [facility] Start: 02-05-2022 End: 02-05-2022 Discharged Recurring [facility] Work Phone: [facility]-Laboratory Start: 02-05-2022 End: 02-05-2022 amb[address] [facility] Work Phone: [facility] Work Phone: Start: 02-05-2022 End: 02-05-2022 Patient encounter procedure [facility] Work Phone: [facility]-Pulmonary Services/Neurology Start: 02-01-2022 Non-patient / Non-visit [facility] Work Phone: [facility] Start: 01-30-2022 End: 01-30-2022 Patient encounter procedure [facility] Work Phone: [facility]-Pulmonary Services/Neurology Start: 01-17-2022 End: 01-17-2022 Discharged Recurring [facility] Work Phone: [facility]-Laboratory Start: 01-09-2022 End: 01-09-2022 Patient encounter procedure [facility] Work Phone: [facility] Start: 12-14-2021 Non-patient / Non-visit [facility] Work Phone: [facility] Start: 12-14-2021 End: 12-14-2021 amb[address] [facility] Work Phone: [facility] Work Phone: Start: 12-14-2021 End: 12-14-2021 Discharged Recurring [facility] Work Phone: [facility]-Laboratory Start: 11-20-2021 Non-patient / Non-visit [facility] Work Phone: [facility] Start: 11-20-2021 End: 11-20-2021 amb[address] [facility] Work Phone: [facility] Work Phone: Start: 11-20-2021 End: 11-20-2021 Patient encounter procedure [facility] Work Phone: [facility]-Cardiovascular Services Start: 11-08-2021 End: 11-08-2021 Patient encounter procedure [facility] Work Phone: [facility] Start: 07-21-2021 End: 07-21-2021 Patient encounter procedure [facility] Start: 07-06-2021 End: 07-06-2021 Patient encounter procedure [facility]/Neurology Start: 05-02-2021 End: 05-02-2021 Patient encounter procedure [facility] Start: 04-12-2021 End: 04-12-2021 Patient encounter procedure [facility] Procedures Date Procedure Procedure Detail Performing Clinician Start: 09-11-2024 X-ray of chest, PA a nd lateral views Evelia Gil NP-C Work Phone: Start: 04-28-2024 Anaerobic microbial culture Evelia Gil NP-C Work Phone: Start: 04-28-2024 Gram stain microscopy Flo Gil J2EE DEVELOPER-C Work Phone: Start: 04-28-2024 End: 04-28-2024 Microbial culture, body fluid Evelia jackson J2EE DEVELOPER-C Work Phone: Start: 04-28-2024 Plain chest X-ray Natalya Gil J2EE DEVELOPER-C Work Phone: Start: 04-28-2024 Blood count leukocyt e wbc automated Evelia Gil J2EE DEVELOPER-C Work Phone: Start: 04-28-2024 Glucose measurement, body fluid Evelia Gil J2EE DEVELOPER-C Work Phone: Start: 04-28-2024 Mononuclear cell count Evelia Gil J2EE DEVELOPER-C Work Phone: Start: 04-28-2024 Polymorphonuclear le ukocyte count Evelia Gil J2EE DEVELOPER-C Work Phone: Start: 04-28-2024 Ultrasonic guidance for thoracentesis Evelia Gil J2EE DEVELOPER-C Work Phone: Start: 04-28-2024 Estimated creatinine clearance Evelia Gil J2EE DEVELOPER-C Work Phone: Start: 04-25-2024 CT of chest without contrast Evelia Gil J2EE DEVELOPER-C Work Phone: Start: 04-25-2024 Urnls dip stick/tabl et reagent auto microscopy Evelia Gil J2EE DEVELOPER-C Work Phone: Start: 04-25-2024 Plain chest X-ray Natalya Gil J2EE DEVELOPER-C Work Phone: Start: 04-25-2024 Parathyroid hormone measurement Evelia Gil J2EE DEVELOPER-C Work Phone: Start: 04-07-2024 X-ray of chest, PA a nd lateral views Evelia Gil J2EE DEVELOPER-C Work Phone: Start: 04-07-2024 D-dimer assay, quantitative Evelia Gil J2EE DEVELOPER-C Work Phone: Comment on above: D-Dimer ELEVATED (>0 .49): Additional studies and clinicalassessments are indicated to conclude diagnosis of:Deep Vein Thrombosis (DVT) or Pulmonary Embolism (PE) Start: 04-07-2024 Estimated creatinine clearance Evelia Gil J2EE DEVELOPER-C Work Phone: Start: 04-07-2024 Measurement of renal function Evelia Gil J2EE DEVELOPER-C Work Phone: Comment on above: GFR Calc Start: 04-07-2024 SARS-CoV-2, Influenz a & RSV (PCR) Evelia BONILLA Work Phone: Start: 06-14-2022 Plain chest X-ray [facility] Work Phone: Plan of Treatment Date Care Activity Detail Author Start: 11-25-2024 Thyroid stimulating hormone measurement [facility] Start: 04-28-2024 Anaerobic Culture Anaerobic Culture [facility] Start: 04-28-2024 Body Fluid Culture Body Fluid Culture [facility] Start: 04-28-2024 Microscopic observation [Identifier] in Unspecified specimen by Gram stain [facility] Start: 04-28-2024 Patient discharge [facility] Start: 04-28-2024 Glucose measurement, body fluid [facility] Start: 04-28-2024 Microbial culture, body fluid [facility] Start: 04-28-2024 Vital signs measurements [facility] Start: 04-26-2024 [facility] Start: 04-25-2024 Following clinical pathway protocol [facility] Start: 04-25-2024 Ambulation without limitation [facility] Start: 04-25-2024 Assessment of risk of venous thromboembolism [facility] Start: 04-25-2024 Insertion of catheter into peripheral vein [facility] Start: 04-25-2024 Measuring intake and output [facility] Start: 04-25-2024 Oxygen therapy [facility] Start: 04-25-2024 Providing care according to standard [facility] Start: 04-25-2024 Referral to occupational therapist [facility] Start: 04-25-2024 Referral to service [facility] Start: 04-25-2024 Cell count and Differential panel - Body fluid [facility] Start: 04-25-2024 Care regimes management [facility] Start: 04-25-2024 Notification of physician [facility] Start: 04-25-2024 Hepatic function panel [facility] Start: 04-25-2024 End: 04-25-2024 [facility] Start: 04-25-2024 Parathyroid hormone measurement [facility] Start: 04-25-2024 Verification routine [facility] Start: 04-25-2024 Admission procedure [facility] Start: 04-25-2024 CT Chest WO contrast [facility] Start: 04-25-2024 CT of chest without contrast Chest without Contrast [facility] Start: 04-25-2024 Hospital admission, emergency, from emergency room, medical nature [facility] Start: 04-25-2024 [facility] Start: 04-25-2024 Patient referral to dietitian [facility] Start: 04-25-2024 [facility] Start: 04-07-2024 End: 04-07-2024 [facility] Alanine aminotransfe rase [Enzymatic activity/volume] in Serum or Plasma [facility] Alanine aminotransfe rase [Enzymatic activity/volume] in Serum or Plasma [facility] Albumin [Mass/volume ] in Serum or Plasma [facility] Albumin [Mass/volume ] in Serum or Plasma [facility] Alkaline phosphatase [Enzymatic activity/volume] in Serum or Plasma [facility] Alkaline phosphatase [Enzymatic activity/volume] in Serum or Plasma [facility] Anion gap in Serum or Plasma [facility] Bacteria identified in Body fluid by Culture [facility] Bacteria identified in Unspecified specimen by Anaerobe culture [facility] Bilirubin, total measurement [facility] Bilirubin, total measurement [facility] Bilirubin.direct [Mass/volume] in Serum or Plasma [facility] BUN/Creatinine ratio [facility] Calcium [Mass/volume ] in Serum or Plasma [facility] Carbon dioxide, tota l [Moles/volume] in Central venous blood [facility] Creatinine [Mass/vol ume] in Serum or Plasma [facility] Cytology report of B alma fluid Cyto stain [facility] Glucose [Mass/volume ] in Serum or Plasma [facility] Hemoglobin A1c/Hemoglobin.total in Blood [facility] Lactate dehydrogenas e [Enzymatic activity/volume] in Body fluid by Pyruvate to lactate reaction [facility] Lactate dehydrogenas e measurement [facility] Measurement of renal function [facility] Patient Education [facility] Work Phone: Patient referral [facility] Work Phone: Potassium measurement [facility] Protein [Mass/volume ] in Body fluid [facility] Prothrombin time [facility] Serum chloride measurement [facility] Sodium measurement [facility] Total protein measurement [facility] Total protein measurement [facility] Troponin T.cardiac [Mass/volume] in Serum or Plasma by High sensitivity method [facility] Troponin T.cardiac [Mass/volume] in Serum or Plasma by High sensitivity method [facility] Urea nitrogen [Mass/ volume] in Serum or Plasma [facility] XR Chest PA and Lateral [facility] Immunizations Immunization Date Immunization Notes Care Provider Fa cili 01-07-2024 Covid (Spikevax) Evelia crouch J2EE DEVELOPER-C Work Phone: [facility] 01-07-2024 influenza, high dose seasonal, preservative-free Evelia Gil J2EE DEVELOPER-C Work Phone: [facility] Payers Date Payer Category Payer Self-pay [id number] 2023 Medicare [id number] 2023 Unknown [id number] Unknown [id number] 2.16.8 40.1.413439.3.579.2.462 Unknown [id number] 2.16.8 40.1.305807.3.579.2.462 Unknown [id number] 2.16.8 40.1.339311.3.579.2.462 Unknown [id number] 2.16.8 40.1.964436.3.579.2.462 Unknown [id number] 2.16.8 40.1.113199.3.579.2.462 Unknown [id number] 2.16.8 40.1.450819.3.579.2.462 Unknown [id number] 2.16.8 40.1.154934.3.579.2.462 Unknown [id number] 2.16.8 40.1.555986.3.579.2.462 Unknown [id number] 2.16.8 40.1.713800.3.579.2.462 Unknown [id number] 2.16.8 40.1.388359.3.579.2.462 Unknown [id number] 2.16.8 40.1.123224.3.579.2.462 Unknown [id number] 2.16.8 40.1.795955.3.579.2.462 Unknown [id number] 2.16.8 40.1.151880.3.579.2.462 Unknown [id number] 2.16.8 40.1.491295.3.579.2.462 Unknown [id number] 2.16.8 40.1.733247.3.579.2.462 Unknown [id number] 2.16.8 40.1.483099.3.579.2.462 Unknown [id number] 2.16.8 40.1.963156.3.579.2.462 Unknown [id number] 2.16.8 40.1.366598.3.579.2.462 Unknown [id number] 2.16.8 40.1.745164.3.579.2.462 Unknown [id number] 2.16.8 40.1.956510.3.579.2.462 Unknown [id number] 2.16.8 40.1.961357.3.579.2.462 Social History Date Type Detail Facility Start: 01-27-2021 End: 09-14-2022 Tobacco smoking status MAIS Unknown if ever smoked [facility] Start: 1950 Sex Assigned At Male [facility] Start: 04-25-2024 End: 04-25-2024 Tobacco smoking status NHIS Ex-smoker (finding) [facility] Start: 04-25-2024 End: 05-18-2024 Sex Male (finding) [facility] Sex Male [facility] Goals Date Patient Goal Desired Activity /State Functional Status Date Assessment Result Facility 04-28-2024 Functional status Chair Josie Dyson [facility] Work Phone: Mental Status Date Assessment Result Facility 04-28-2024 Cognitive function Voice/Name Josie Clayton [facility] Work Phone: 04-25-2024 Cognitive function Level Of Cons ciousness Awake;Alert;Appropriate;Follow s Commands [facility] Work Phone: Clinical Notes 04-25-2024 to 09-12-2024 Note Date & Type Note Facility 09-12-2024 Radiology Diagnostic study note [facility] Imaging Services [address] [place] [id number] Chest PA and Lateral MR#: [id number] Acct: [id number] Name: BLAYNE MORALES Rep #: [id number] : 1950 M 74 From: Michelle John MD PCP: Linwood Cowart Status: REG CLI Study:Chest PA and Lateral Date of Exam: 09/11/24 Exam# [id number] Ordering Dr: Susan Colby PA EXAM: XR [...] pneumonia. 2. Right pleural effusion. Reading Location: [id number] CC: EARL Monson; Linwood Cowart ~ Diesel Electrician: Signed [facility] 09-11-2024 Evaluation note Diagnosis Onset Date Resolution [...] Paroxysmal atrial fibrillation chronic November 25 1:32pm [facility] Work Phone: 1(517) 285-828705-20-2025 Evaluation note* Diagnosis Onset Date Resolution Status [...] fibrillation chron ic September 11, 2024 1:44pm [facility] Work Phone: 1(394) 228-621303-11-2025 Consult note [facility] Medical Records Department [address] [place] [address] Counseling Note - Pharmacy 04/28/24 1348 MR#: [id number] Acct: [id number] Name: BLAYNE MORALES Rep #:[id number] : 1950 74 From: Samuel Deleon PCP: VIKRAM Bower, J2EE DEVELOPER-C Statu s:ADM IN Y [facility] has performed discharge medication reconciliation [...] Signature (if applicable): Date CC: ~ Signed [facility]03-11-2025 Discharge summary [facility] Medical Records Department [address] [place] [address] Instructions for Home/Discharge Instructions 04/28/24 1234 MR#: [id number] Acct: [id number] Name: BLAYNE MORALES Rep #:[id number] : 1950 74 From: Luis Nieto DO PCP: VIKRAM Bower, J2EE DEVELOPER-C Statu s:ADM IN Discharge Instructions Diet Discharge [...] 3RF Referrals / Follow Up: Evelia Gil, J2EE DEVELOPER-C [Primary Care Provider] - Within 1 Week (Call to confirm appointment) Disposition Disposition (needs filled in before D/C Order can be placed): Home, Self Care 04/28/24 Tai8Luis Nieto DO CC: VIKRAM J2EE DEVELOPERCash Gil; Dr. Hubert Hastings DO; Dr. Nba Seth MD ~ Signed [facility]03-11-2025 [facility] Medical Records Department [address] [place] [address] Discharge Summary 04/28/24 1248 MR#: [id number] Acct: [id number] Name: BLAYNE MORALES Rep #: [id number] : 1950 74 From: Luis Nieto DO PCP: VIKRAM Bower NP-C Status:DIS IN [facility] Providers Date of Admission: 04/25/24 Date of [...] and examined in the emergency room at [facility] with complaints of low blood sugar and [...] Total Protein 7.5 03 (more content not included)...[facility]03-11-2025 Radiology Diagnostic study note [facility] Imaging Services [address] [place] [address] Thoracentesis W MR#: [id number] Acct: [id number] Name: BLAYNE MORALES Lisa Rep #: [id number] : 1950 M 74 From: Italo Keene MD PCP: Evelia Gil Matilde, J2EE DEVELOPER-C Status: ADM IN Study:Thoracentesis W US Date of Exam: 0 04/28/24 Exam# [id number] Ordering Dr: Hubert Rodriguez DO PROCEDURE: THORACENTESIS W US REASON FOR EXAM: R PLEURAL EFFUSION TECHNIQUE: The procedure as well as the benefits and possible complications including infection and bleeding and pneumothorax were explained to the patient. Informed consent was obtained. The overlying skin was prepped and draped in usual sterile fashion. Following local anesthetic application, a 5 Hungarian catheter was placed into the right hemithorax. [...] IMPRESSION: Successful right ultrasound-guided thoracentesis. Reading Location: [facility]- CC: [facility] J2EE DEVELOPER-C Evelia Gil; Dr. Hubert Hastings, ~ Diesel Electrician: Signed [facility]03-11-2025 Radiology Diagnostic study note [facility] Imaging Services [address] [place] [address] [id number] Chest Insp/Exp 2 View MR#: [id number] Acct: [id number] Name: BLAYNE MORALES Rep #: [id number] : 1950 M 74 From: Michelle John MD PCP: Evelia Gil Matilde, J2EE DEVELOPER-C Status: ADM IN Study:Chest Insp/Exp 2 View Date of Exam: 04/28/24 Exam# [id number] Ordering Dr: Abhay Blevins i, MD EXAM: [...] right pleural effusion. No pneumothorax. Reading [facility] CC: [facility] J2EE DEVELOPERCash Gil; Dr. Abhay Keene MD ~ Diesel Electrician: Signed [facility]03-09-2025 Progress note Author Nba Seth [facility] Note Date/Time April 26, 2024 3:04 pm [facility] Medical Records Department [address] [facility] [place] [address] Progress Note - Hospitalist 04/26/24813 MR#: [id number] Acct: [id number] Name: BLAYNE MORALES Rep #:[id number] : 1950 74 From: Nba Adler PCP: VIKRAM Bower, J2EE DEVELOPER-Matilde Statu s:ADM IN Location: [place] [address] Reason for Visit Reason for Visit: Diagnoses [...] 78.7 H, Lymph % (Auto) 10.4 L, Bell % (Auto) 7.4, Eos % (Auto) 2.8, [...] Clarity Clear, Urine pH 6.0, Ur Specific [place] 1.015, Urine Protein 30 H, Urine Glucose [...] use of iterative reconstruction technique). [facility] Physical Exam Narrative Seen and examined Patient [...] Patient is a 74-year-old male who presented [facility] ED on 04/25/2024 with worsening shortness of [...] 78.7 H, Lymph % (Auto) 10.4 L, Bell % (Auto) 7.4, Eos % (Auto) 2.8, [...] Clarity Clear, Urine pH 6.0, Ur Specific [place] 1.015, Urine Protein 30 H, Urine Glucose [...] Sodium 133, Potassium 4.2, Chloride 98, Carbon Kukowmu84.8, Anion Gap 12, BUN 18, Creatinine 0.98, Estim Creat Clear Calc 78.24, Est GFR (MDRD) Non-Af 82, BUN/Creatinine Ratio 18.3, Glucose 158 H, Hemoglobin A1c 7.0, Calcium 10.8 04/26/24 12:23: POC Glucose 208 H Charges/Coding Visit Charges Inpatient E&M: 26887 Subs Hosp L2 04/26/24 1504 <Electronically signed by Nba Seth MD> Cosigner Signature (if applicable): CC: ~ Signed [facility] Work Phone: 1(403) 917-292903-09-2025 Progress note [facility] Medical Records Department [address] [place] [address] Progress Note - Hospitalist 04/26/24 0814 MR#: [id number] Acct: [id number] Name: BLAYNE MORALES Rep #:[id number] : 1950 74 From: Nba Adler PCP: VIKRAM Bower, J2EE DEVELOPER-C Statu s:ADM IN Location: [place] [address] Reason for Visit Reason for Visit: Diagnoses [...] 78.7 H, Lymph % (Auto) 10.4 L, Bell % (Auto) 7.4, Eos % (Auto) 2.8, [...] Clarity Clear, Urine pH 6.0, Ur Specific [place] 1.015, Urine Protein 30 H, Urine Glucose [...] infection can not be excluded. Reading Location: [facility] Chest CT 04/25/24 18:59 IMPRESSION: Large right pleural effusion with compressive atelectasis. One or more dose reduction techniques were used (e.g., Automated exposure control, adjustment of the mA and/or kV according to patient size, use of iterative reconstruction technique). Reading Location: [facility] Physical Exam Narrative Seen and examined Patient [...] Patient is a 74-year-old male who presented [facility] ED on 04/25/2024 with worsening shortness of [...] 78.7 H, Lymph % (Auto) 10.4 L, Bell % (Auto) 7.4, Eos % (Auto) 2.8, [...] Clarity Clear, Urine pH 6.0, Ur Specific [place] 1.015, Urine Protein 30 H, Urine Glucose [...] Sodium 133, Potassium 4.2, Chloride 98, Carbon Qevenrq51.8, Anion Gap 12, BUN 18, Creatinine 0.98, Estim Creat Clear Calc 78.24, Est GFR (MDRD) Non-Af 82, BUN/Creatinine Ratio 18.3, Glucose 158 H, Hemoglobin A1c 7.0, Calcium 10.8 04/26/24 12:23: POC Glucose 208 H Charges/Coding Visit Charges Inpatient E&M: 40060 Subs Hosp L2 04/26/24 1504 Cosigner Signature (if applicable): CC: ~ Signed [facility]03-08-2025 Discharge summary Author Cindy Mendez [facility] Note Date/Time April 25, 2024 7:57 pm [facility] Medical Records Department [address] [place] [address] Emergency Department Summary 04/25/24 MR#: [id number] Acct: [id number] Name: BLAYNE MORALES Rep #:[id number] : 1950 74 From: Cindy Mendez DO PCP: VIKRAM Bower, J2EE DEVELOPER-C Statu s:ADM IN Location: [place] [address] HPI History of Present Illness Chief Complaint: [...] chills or sweats. He describes frequent urination. [facility] Medical History Cardiac murmur Chronic kidney [...] unremarkable. Troponin was elevated at 77. BT J2EE DEVELOPER was 849. Patient states that he has [...] 78.7 H Lymph % (Auto) 10.4 L Bell % (Auto) 7.4 Eos % (Auto) 2.8 [...] infection can not be excluded. Reading Location: [facility] 1 view chest x-ray obtained interpreted by [...] Impression: Acute dyspnea, Elevated troponin, Non-ST elevation OK (NSTEMI), Pleural effusion on right Prescriptions: No [...] Care Provider: Evelia Gil Referrals: Evelia Gil, J2EE DEVELOPER-C [Primary Care Provider] - Print Language: Iranian Disposition Disposition: Acute Care Hospital [facility] What to do if you have Problems For any increased pain, shortness of breath, bleeding, nausea or vomiting, chestpain, or any unexpected problems, contact your Primary Care Provider. Call [facility] ([phone]) or report to the closest Emergency Room. Call 911 if necessary. 04/25/242056 <Electronically signed by Cindy Mendez DO> Cosigner Signature (if applicable): CC: VIKRAM J2EE DEVELOPER-C Evelia Gil ~ Signed [facility] Work Phone: 1(216) 266-503003-08-2025 History and physical note Author Hubert Hastings [facility] Note Date/Time April 25, 2024 7:23 pm [facility] Medical Records Department [address] [place] [address] H&P Exam - Hospitalist 04/25/24 1831 MR#: [id number] Acct: [id number] Name: BLAYNE MORALES Rep #:[id number] : 1950 74 From: Hubert valero DO PCP: Evelia Gil Matilde, J2EE DEVELOPER-C Statu s:ADM IN Location: [facility] [id number] HPI - General General Date of Admission: 04/25/24 Date of Service: 04/25/24 Chief Complaint: Worsening shortness of breath with exertion and concern for hypoglycemic episodes HPI Narrative BLAYNE MORALES, is a 74 M who presented to [facility] ED on 04/25/2024 with worsening shortness of [...] No other acute concerns at this time. [facility] Medical History Cardiac murmur Chronic kidney disease [...] 78.7 H, Lymph % (Auto) 10.4 L, Bell % (Auto) 7.4, Eos % (Auto) 2.8, [...] infection can not be excluded. [facility] Assessment & Plan Assessment/Plan (1) Pleural effusion on right: PLAN: Plan Patient is a 74-year-old male who presented [facility] ED on 04/25/2024 with worsening shortness of [...] 75 minutes. Charges/Coding Visit Charges Inpatient E&M: 99599 Init Hosp L3 04/25/242022 <Electronically signed by Hubert Hastings DO> Cosigner Signature (if applicable): CC: [facility] J2EE DEVELOPER-Matilde Gil; Dr. Hubert Hastings DO~ Signed [facility] Work Phone: 1(426) 757-742903-08-2025 Evaluation note* Diagnosis Onset Date Resolution Status Admit Date Pleural effusion on right acute April 25, 2024 7:00pm [facility] Work Phone: 1(393) 820-599003-08-2025 Evaluation note* Diagnosis Onset Date Resolution Status Admit Date Pleural effusion on right inactive April 25, 2024 7:00pm [facility] Work Phone: 1(800) 294-530603-08-2025 Evaluation note* Diagnosis Onset Date Resolution Status Admit Date Pleural effusion on right inactive April 25, 2024 7:00pm Aortic stenosis acute July 07, 2024 3:01pm Dyspnea acute July 07, 2024 3:01pm Pulmonary hypertension acute Ma y 2024 3:01pm Essential hypertension chronic Ma y 2024 3:01pm Paroxysmal atrial fibrillation chron ic July 07, 2024 3:01pm [facility] Work Phone: 1(950) 246-695403-08-2025 Discharge summary [facility] Medical Records Department [address] [place] [address] Emergency Department Summary 04/25/24 MR#: [id number] Acct: [id number] Name: BLAYNE MORALES Lisa Rep #:[id number] : 1950 74 From: Cindy Mendez DO PCP: Evelia Gil, Matilde, J2EE DEVELOPER-C Statu s:ADM IN Location: [place] [address] HPI History of Present Illness Chief Complaint: [...] chills or sweats. He describes frequent urination. [facility] Medical History Cardiac murmur Chronic kidney [...] unremarkable. Troponin was elevated at 77. BT J2EE DEVELOPER was 849. Patient states that he has [...] 78.7 H Lymph % (Auto) 10.4 L Bell % (Auto) 7.4 Eos % (Auto) 2.8 [...] infection can not be excluded. [facility] 1 view chest x-ray obtained interpreted by [...] Impression: Acute dyspnea, Elevated troponin, Non-ST elevation OK (NSTEMI), Pleural effusion on right Prescriptions: No [...] Care Provider: Evelia Gil Referrals: Evelia Gil, J2EE DEVELOPER-C [Primary Care Provider] - Print Language: Iranian Disposition Disposition: Acute Care Hospital [facility] What to do if you have Problems For any increased pain, shortness of breath, bleeding, nausea or vomiting, chestpain, or any unexpected problems, contact your Primary Care Provider. Call [facility] ([phone]) or report tothe closest Emergency Room. Call 911 if necessary. 04/25/242056 Cosigner Signature (if applicable): CC: Matilde J2EE DEVELOPER-C Evelia Gil ~ Signed [facility]03-08-2025 Radiology Diagnostic study note [facility] Imaging Services [address], [place] [address] Chest without Contrast MR#: [id number] Acct: [id number] Name: BLAYNE MORALES Rep #: [id number] : 1950 M 74 From: Marcos Rodriguez DO PCP: VIKRAM Bower, J2EE DEVELOPER-C Status: ADM IN Study:Chest without Contrast Date of Exam: 04/25/24 Exam# [id number] Ordering Dr: Hubert Rodriguez DO PROCEDURE: CHEST [...] reconstruction technique). Reading Location: [place] CC: VIKRAM J2EE DEVELOPER-C Evelia Gil; Dr. Hubert Hastings DO ~ Diesel Electrician: Signed [facility]03-08-2025 History and physical note [facility] Medical Records Department [address] [place] [address] H&P Exam - Hospitalist 04/25/24 1831 MR#: [id number] Acct: [id number] Name: BLAYNE MORALES Rep #:[id number] : 1950 74 From: Hubert Felizlisa valero DO PCP: VIKRAM Bower, J2EE DEVELOPER-C Statu s:ADM IN Location: [place] [id number] HPI - General General Date of Admission: 04/25/24 Date of Service: 04/25/24 Chief Complaint: Worsening shortness of breath with exertion and concern for hypoglycemic episodes HPI Narrative BLAYNE MORALES, is a 74 M who presented to [facility] ED on 04/25/2024 with worseningshortness of breath [...] No other acute concerns at this time. [facility] Medical History Cardiac murmur Chronic kidney disease [...] 78.7 H, Lymph % (Auto) 10.4 L, Bell % (Auto) 7.4, Eos % (Auto) 2.8, [...] infection can not be excluded. [facility] Assessment & Plan Assessment/Plan (1) Pleural effusion on right: PLAN: Plan Patient is a 74-year-old male who presented [facility] ED on 04/25/2024 with worsening shortness of [...] 75 minutes. Charges/Coding Visit Charges Inpatient E&M: 52751 Init Hosp L3 04/25/242022 Cosigner Signature (if applicable): CC: VIKRAM J2EE DEVELOPER-C Evelia Gil; Dr. Hubert Hastings DO~ Signed [facility]03-08-2025 Radiology Diagnostic study note [facility] Imaging Services [address], [place] [id number] Chest 1 View (Portable) MR#: [id number] Acct: [id number] Name: BLAYNE MORALES Rep #: [id number] : 1950 M 74 From: Marcos Rodriguez DO PCP: VIKRAM Bower, J2EE DEVELOPER-C Status: REG ER Study:Chest 1 View (Portable) Date of Exam: 04/25/24 Exam# [id number] Ordering Dr: Monica Mendez DO PROCEDURE: CHEST [...] be excluded. Reading Location: [place] CC: VIKRAM J2EE DEVELOPER-C Evelia Gil; Dr. Cindy Mendez DO ~ Diesel Electrician: Signed [facility]03-08-2025 Radiology Diagnostic study note [facility] Imaging Services [address] [place] [id number] Chest 1 View (Portable) MR#: [id number] Acct: [id number] Name: BLAYNE MORALES Rep #: [id number] : 1950 M 74 From: Marcos Rodriguez DO PCP: VIKRAM Bower, J2EE DEVELOPER-C Status: REG ER Study:Chest 1 View (Portable) Date of Exam: 04/25/24 Exam# [id number] Ordering Dr: Monica Mendez DO PROCEDURE: CHEST [...] not be excluded. Reading Location: [place] CC: [facility] J2EE DEVELOPER-C Evelia Gil; Dr. Cindy Mendez DO ~ Diesel Electrician: [facility]igned [facility] Author Samuel Deleon [facility] Note Date/Time April 28, 2024 2:2 7pm [facility] Medical Records Department [address] [place] [id number] Counseling Note - Pharmacy 04/28/24 1348 MR#: [id number] Acct: [id number] Name: BLAYNE MORALES Rep #:[id number] : 1950 74 From: Samuel Deleon PCP: VIKRAM Bower, J2EE DEVELOPER-C Statu s:ADM IN Y Location: [facility] [id number] Pharmacy [facility] has performed discharge medication reconciliation [...] Signature (if applicable): Date CC: ~ Signed [facility] Work Phone: Discharge summary Author Luis Nieto [facility] Note Date/Time April 28, 2024 12: 48pm [facility] Medical Records Department [address] [place] [address] Instructions for Home/Discharge Instructions 04/28/24 1234 MR#: [id number] Acct: [id number] Name: BLAYNE MORALES Rep #:[id number] : 1950 74 From: Luis Nieto DO PCP: VIKRAM Bower, J2EE DEVELOPER-C Statu s:ADM IN Discharge Instructions Diet Discharge [...] Primary Care Provider: Evelia Gil Consulting Providers: Hubetr Hastings; Nba Seth Instructions Patient Instructions: RAD [...] 3RF Referrals / Follow Up: Evelia Gil, J2EE DEVELOPER-C [Primary Care Provider] - Within 1 Week (Call to confirm appointment) Disposition Disposition (needs filled in before D/C Order can be placed): Home, Self Care 04/28/24 1248<Electronically signed by Luis Nieto DO>Luis Nieto DO CC: VIKRAM J2EE DEVELOPER-C Evelia Gil; Dr. Hubert Hastings DO; Dr. Nba Seth MD ~ Signed [facility] Work Phone: Evaluation noteNo assessment information available [facility] Work Phone: evaluation note* Diagnosis Onset Date Resolution Status Essential hypertension acute Pulmonary hypertension acute Paroxysmal atrial fibrillation [facility] Work Phone: Evaluation note* Diagnosis Onset Date Resolution Status Essential hypertension acute Pulmonary hypertension acute Paroxysmal atrial fibrillation chronic Essential hypertension acute Pulmonary hypertension acute Paroxysmal atrial fibrillation [facility] Work Phone: Evaluation note* Diagnosis Onset Date Resolution Status Obesity acute Pulmonary hypertension acute Restrictive airway disease a cute [facility] Work Phone: Evaluation note* Diagnosis Onset Date Resolution Status Abnormal CXR acute Essential hypertension acute Paroxysmal atrial fibrillation [facility] Work Phone: Reason for referral (narrative)No reason for referral [facility] Work Phone: Chief Complaint and Reason for [...] 3:01pm Chief Complaint Admit Date [place] July 07, 2024 3:01p m PT INR [...] 1:44pm Chief Complaint Admit Date [place] July 07, 2024 3:01p m PT INR [...] Will No January 27 8:33am Power of Industrial Real Estate Agent No January 27, 2021 8:33am Advance Directive Response Recorded Date/ Time Living Will No January 27 021 7:33am Power of Industrial Real Estate Agent No January 27, 2021 7:33am Advance Directive Response Recorded Date/ Time Living Will Yes April 25, 2024 4:46pm Power of Industrial Real Estate Agent Yes April 25 4:46pm Name of Medical Power of Industrial Real Estate Agent Blayne Morales Jr April 25, 2024 4:46pm Living Will No January 27 021 7:33am Power of Industrial Real Estate Agent No January 27, 2021 7:33am Living Will No April 07 025 4:13pm Power of Industrial Real Estate Agent No April 07, 2024 4:13pm Advance Directive Response Recorded Date/ Time Living Will Yes April 25, 2024 8:53pm Power of Industrial Real Estate Agent Yes April 25 8:53pm Name of Medical Power of Industrial Real Estate Agent Blayne Morales Jr April 25, 2024 8:53pm Living Will No January 27 021 8:33am Power of Industrial Real Estate Agent No January 27, 2021 8:33am Living Will No April 07, 025 5:13pm Power of Industrial Real Estate Agent No April 07, 2024 5:13pm Advance Directive Response Recorded Date/ Time Living Will Yes April 25, 2024 8:53pm Do you have a Healthcare Pow er of Industrial Real Estate Agent? Yes April 25, 2024 8:53pm Name of Medical Power of Industrial Real Estate Agent Blayne Morales Jr April 25, 2024 8:53pm Living Will No April 07 025 5:13pm Do you have a Healthcare Pow er of Industrial Real Estate Agent? No April 07, 2024 5:13pm Advance Directive Response Recorded Date/ Time Living Will Yes April 25, 2024 8:53pm Do you have a Healthcare Pow er of Industrial Real Estate Agent? Yes April 25, 2024 8:53pm Name of Medical Power of Industrial Real Estate Agent Balyne Morales Jr April 25, 2024 8:53pm Living Will No January 18 2:40am Do you have a Healthcare Pow er of Industrial Real Estate Agent? No January 19, 2024 2:40am Living Will No April 07 025 5:13pm Do you have a Healthcare Pow er of Industrial Real Estate Agent? No April 07, 2024 5:13pm Advance Directive Response Recorded Date/ Time Living Will No January 27 021 8:33am Do you have a Healthcare Power of Industrial Real Estate Agent? No January 27, 2021 8:33am Living Will No July 19, 2024 4 :41am Do you have a Healthcare Power of Industrial Real Estate Agent? No July 19, 2024 4:41am Living Will No January 18 2:40am Do you have a Healthcare Power of Industrial Real Estate Agent? No January 19, 2024 2:40am Advance Directive Response Recorded Date/ Time Living Will No January 27 021 8:33am Do you have a Healthcare Power of Industrial Real Estate Agent? No January 27, 2021 8:33am Living Will No July 19, 2024 4 :41am Do you have a Healthcare Power of Industrial Real Estate Agent? No July 19, 2024 4:41am Summary Purpose [...] Inactive Member Role Status Dates Evelia SUE, J2EE DEVELOPER-C Primary Care Provider Activ e Start: April 07, 2024 End: April 07, 2024 Dr. Carlos Wang , Attending Provider Active Start: April 07, 2024 End: April 07, 2024 Dr. Carlos Wang , Emergency Provider Active Start: April 07, 2024 End: April 07, 2024 Team Status: Inactive Member Role Status Dates Evelia SUE, J2EE DEVELOPER-C Primary Care Provider Activ e Start: April [...] Active Member Role Status Dates Evelia SUE, J2EE DEVELOPER-C Primary Care Provider Activ e Start: April [...] Member Role Status Dates Evelia Gil RAPHAELC, J2EE DEVELOPER-C Primary Care Provider Activ e Start: April 27, 2024 Dr. Deedee Torres MD Attending Provider Activ e Start: April 27, 2024 Team Status: Active Member Role Status Dates Evelia Gil RAPHAELC, J2EE DEVELOPER-C Primary Care Provider Activ e Start: April [...] Member Role Status Dates Evelia Gil RAPHAELC, J2EE DEVELOPER-C Primary Care Provider Activ e Start: April 28, 2024 Dr. Yogi Lind MD Attending Provider Active Start: April 28, 2024 Dr. Yogi Lind MD Referring Provider Active Start: April 28, 2024 Team Status: Active Member Role Status Dates Evelia Gil RAPHAELC, J2EE DEVELOPER-C Primary Care Provider Activ e Start: April [...] Member Role Status Dates Evelia Gil VSC, J2EE DEVELOPER-C Primary Care Provider Activ e Start: May 05, 2024 End: May 05, 2024 Geoffrey Cowart VSC, J2EE DEVELOPER-C Attending Provider Active Start: May 05, 2024 End: May 05, 2024 Team Status: Inactive Member Role Status Dates Evelia Gil VSC, J2EE DEVELOPER-C Primary Care Provider Activ e Start: May 12, 2024 End: May 12, 2024 Dr. Curly Perea MD Attending Provider Active Start: May 12, 2024 End: May 12, 2024 Team Status: Inactive Member Role Status Dates Evelia Gil VSC, J2EE DEVELOPER-C Referring Provider Active Start: July 07, 2024 End: July 07, 2024 EARL Good Attending Provider Active St art: July 07, 2024 End: July 07, 2024 Haugan Beam Primary Care Provider Active Start: July 07, 2024 End: July 07, 2024 Team Status: Active Member Role Status Dates [facility] Primary Care Provider A ctive Team Status: Inactive Member Role Status Dates [facility] Primary Care Provider A ctive Dr. Bari Goldstein DO Attending Provider Active Lawanda LIMC, J2EE DEVELOPER-C Referring Provider Active Team Status: Inactive Member Role Status Dates [facility] Primary Care Provider A ctive Dr. Aly Ann MD Attending Provider, Referring Pro vider Active Dr. Taran Womack MD Other Provider Active Dr. Bari Goldstein DO Other Provider Active Evelia Gil J2EE DEVELOPER, J2EE DEVELOPER-C Other Provider Active Team Status: Inactive Member Role Status Dates [facility] Primary Care Provider, Referring Provider Active Susan Biswas PA, PA Attending Provider Active Team Status: Inactive Member Role Status Dates [facility] Primary Care Provider A ctive Dr. Aly Ann MD Attending Provider, Referring Pro vider Active Dr. Taran Womack MD Other Provider Active Dr. Bari Goldstein DO Other Provider Active Evelia Gil J2EE DEVELOPER, J2EE DEVELOPER-C Other Provider Active Susan Biswas PA, PA Other Provider Active Team Status: Active Member Role Status Dates Evelia Gil VSC, J2EE DEVELOPER-C Primary Care Provider Activ e Team Status: Inactive Member Role Status Dates Evelia Gil VSC, J2EE DEVELOPER-C Primary Care Provider Activ e Start: January 01, 2024 End: January 01, 2024 Evelia Gil VSC, J2EE DEVELOPER-C Attending Provider Active Start: January 01, 2024 End: January 01, 2024 Team Status: Inactive Member Role Status Dates Susan ELLIOTT PA Attending Provider Active Start: January 07, 2024 End: 2024 Susan ELLIOTT PA Referring Provider Active Start: January 07, 2024 End: 2024 Evelia LIMC, J2EE DEVELOPER-C Primary Care Provider Activ e Start: January 07, 2024 End: 2024 Team Status: Active Member Role Status Dates Evelia LIMC, J2EE DEVELOPER-C Primary Care Provider Activ e Start: April [...] Member Role Status Dates Evelia Gil RAPHAELC, J2EE DEVELOPER-C Primary Care Provider Activ e Start: April [...] Active Member Role Status Dates Evelia LIMC, J2EE DEVELOPER-C Primary Care Provider Activ e Start: May [...] Team Status: Active Member Role/Relationship Status Dates Haugan Beam Primary Care Provider Active Team Status: Inactive Member Role/Relationship Status Dates Evelia Gil VSC, J2EE DEVELOPER-C Referring Provider Active Start: July 07, 2024 [...] July 07, 2024 End: July 07, 2024 Haugan Beam Primary Care Provider Active Start: July 07, 2024 End: July 07, 2024 Team Status: Active Member Role/Relationship Status Dates Susan Biswas PA, PA Attending Provider Active Start: September 09, 2024 Susan Biswas PA, PA Referring Provider Active Start: September 09, 2024 Linwood Beam Primary Care Provider Active Start: September 09, 2024 Team Status: Inactive Member Role/Relationship Status Dates [facility] Referring Provider Acti ve Start: September 11, [...] September 09, 2024 End: September 17, 2024 Haugan Beam Primary Care Provider Active Start: September [...] Team Status: Inactive Member Role/Relationship Status Dates [facility] Referring Provider Acti ve Start: September 11, [...] Referring Provider Active Start: November 25, 2024 Haugan Beam Primary care physician Active Start : November 25, 2024 Team Status: Active Member Role/Relationship Status Dates Linwood Beam Primary care physician Active Start : November 25, 2024 [facility] VSC, J2EE DEVELOPER-C Attending physician Active Start: November 25, 2024 Team Status: Inactive Member Role/Relationship Status Dates Linwood Beam Primary care physician Active Start : November 25, 2024 End: November 25, 2024 Haugan Beam Referring Provider Active Start: Oc tober 2024 End: November 25, 2024 Susan ELLIOTT PA Attending physician Active Start: November 25, 2024 End: November 25, 2024 (unrecognized sect ion and content) No Status Records Found INFORMATION SOURCE (unrecogn ized section and content) DATE CREATED AUTHOR 12/20/2024 [facility] FOR RECORDS PERTAINING TO PATIENTS WHO [...] ON THE PRIMARY CLINICAL RECORDS. [facility]. provides no warranty or guarantee of the accuracy or completeness of information in this document.
--- NOTE | 2024-12-30 20:18 | PCM.HP.STD ---
HPI - General General Date of Admission: 12/30/24 Date of Service: 12/30/24 Chief Complaint: Shortness of breath, generalized weakness HPI Narrative BLAYNE ABDI, is a 74 M who presents to the emergency room at [facility] with complaints of shortness of breath over the past few days, he checked his pulse ox at home on room air and it was 67% and he called the squad to transport him to the ER for evaluation. Patient has no complaint of any chest pain. Patient does not have home O2 on a chronic basis. He does have a history of congestive heart failure in the past. Workup in the emergency room included labs including a CBC which showed a normal white blood cell count, hemoglobin was 11.7, chemistry profile was unremarkable except for a glucose of 191, patient's troponin was 74 and repeat troponin in 2 hours was 77. Patient's 4-hour troponin was 80, his beta natruretic peptide was 1962. Patient's EKG showed atrial fibrillation without evidence of ischemic changes. Patient's INR was 1.7. Chest x-ray obtained showed patchy infiltrates in the right lung field, trace bibasilar pleural effusions, mild cardiomegaly and mild pulmonary vascular congestion. Patient required supplemental oxygen at 3 L to maintain his pulse ox above 90%. Patient will be admitted to PCU for acute on chronic diastolic congestive heart failure and pneumonia, he will be given IV Lasix and he was placed on IV Rocephin and Zithromax. Pulse ox will be monitored. [facility] Medical History Pleural effusion on right Alcohol abuse Sleep apnea Cardiac murmur Chronic kidney disease (CKD) Frequent headaches Hyperlipidemia Paroxysmal atrial fibrillation Atrial fibrillation with rapid ventricular response (01/2021) Essential hypertension Severe protein-calorie malnutrition HELENA (acute kidney injury) Abrasion of cornea, right Diabetes Home Medications ?Medication ?Instructions ?Recorded ?Last Taken ?Type pravastatin 20 mg tablet 20 mg PO DAILY 01/26/21 Unknown History glimepiride 4 mg tablet 4 mg PO DAILY #60 tabs 02/07/21 Unknown Rx acetaminophen 500 mg capsule 500 mg PO Q6H PRN fever or pain 11/08/21 Unknown History cyanocobalamin (vitamin B-12) 1,000 mcg PO DAILY 11/08/21 Unknown History 1,000 mcg capsule ferrous sulfate 325 mg (65 mg 325 mg PO .3 x week 11/08/21 Unknown History iron) capsule,extended release spironolactone 25 mg tablet 25 mg PO DAILY 11/08/21 Unknown History insulin glargine 100 unit/mL (3 55 unit subcut QPM 01/09/22 Unknown History mL) subcutaneous pen (Lantus Solostar U-100 Insulin) cholecalciferol (vitamin D3) 1,250 1,250 mcg PO QWEEK 03/08/22 Unknown History mcg (50,000 unit) capsule tamsulosin 0.4 mg capsule (Flomax) 0.4 mg PO DAILY 09/14/22 Unknown History metoprolol tartrate 50 mg tablet 50 mg PO BID #180 tabs 05/04/24 Unknown Rx warfarin 4 mg tablet 4 mg PO .COMPLEX #120 tabs 09/22/24 Unknown Rx metformin 500 mg tablet 500 mg PO QDAY 11/25/24 Unknown History Allergy/AdvReac Type Severity Reaction Status Date / Time amlodipine (From Lotrel) Allergy Severe Other Verified 12/30/24 13:44 benazepril (From Lotrel) Allergy Severe Other Verified 12/30/24 13:44 furosemide AdvReac Intermediate Pain in Verified 12/30/24 13:44 legs Surgical History History of cataract surgery Social History Smoking Status: Former smoker ROS Constitutional Constitutional: Reports fatigue and weakness; Denies anorexia, change in weight, chills, fever(s) or night sweats Eyes Eyes: Denies blurry vision, change in vision, discharge from eye(s) or eye pain Cardiovascular Cardiovascular: Reports dyspnea on exertion; Denies chest pain, claudication, edema or palpitations Respiratory/Chest Respiratory/Chest: Reports dyspnea; Denies cough, hemoptysis, shortness of breath at rest or shortness of breath with exertion Gastrointestinal Gastrointestinal: Denies abdominal pain, constipation, diarrhea, hematemesis, hematochezia, melena, nausea or vomiting Genitourinary Genitourinary: Denies dysuria, hematuria, urinary frequency, urinary hesitancy, urinary incontinence or urinary urgency Musculoskeletal Musculoskeletal: Denies back pain, joint pain, joint stiffness, joint swelling, myalgias or neck pain Neurologic Neurologic: Denies abnormal gait, abnormal speech, dizziness, focal weakness, headache(s), loss of vision, numbness, other visual disturbances, paresthesias, syncope or tingling Psychiatric Psychiatric: Denies anxiety, cognitive impairment, depression, irritability, mood swings or suicidal ideation Endocrine Endocrinology: Denies change in body appearance, cold intolerance, excessive sweating, heat intolerance, polydipsia or polyuria Hematologic/Lymphatic Hematologic/Lymphatic: Denies none, anemia, easy bleeding, easy bruising or lymphadenopathy Allergic/Immunologic Allergic/Immunologic: Denies rhinitis, urticaria, eczemia or asthma Vital Signs Vital Signs Vital Signs: 12/30/24 13:42 12/30/24 14:11 12/30/24 14:32 Temperature 97.8 F 98.2 F Temperature Source Oral Oral Pulse Rate 77 90 Respiratory Rate 20 H 22 H Respiratory Effort Short of Breath Labored Respiratory Depth Shallow Respiratory Pattern Tachypnea Blood Pressure 122/91 H 119/91 H Blood Pressure Mean 101 100 Blood Pressure Source Blood Pressure Position Blood Pressure Location Pulse Ox 92 99 Oxygen Delivery Method Room Air Nasal Cannula Nasal Cannula Oxygen Flow Rate (L/min) 2 3 12/30/24 14:44 12/30/24 15:18 12/30/24 17:00 Temperature 98.8 F Temperature Source Temporal Pulse Rate 100 89 Respiratory Rate 22 H 27 H Respiratory Effort Respiratory Depth Respiratory Pattern Blood Pressure 128/85 H 113/71 Blood Pressure Mean 99 85 Blood Pressure Source Blood Pressure Position Blood Pressure Location Pulse Ox 97 99 96 Oxygen Delivery Method Nasal Cannula Nasal Cannula Room Air Oxygen Flow Rate (L/min) 3 3 12/30/24 17:49 12/30/24 19:30 12/30/24 20:07 Temperature 98.0 F 97.0 F L Temperature Source Temporal Pulse Rate 89 97 91 Respiratory Rate 24 H 20 H 20 H Respiratory Effort Respiratory Depth Respiratory Pattern Blood Pressure 115/82 H 131/81 H Blood Pressure Mean 93 97 Blood Pressure Source Monitor Blood Pressure Position Semi-Fowlers Blood Pressure Location Right Arm Pulse Ox 96 98 Oxygen Delivery Method Nasal Cannula Oxygen Flow Rate (L/min) 2 12/30/24 20:07 12/30/24 20:12 Temperature Temperature Source Pulse Rate Respiratory Rate Respiratory Effort Labored Respiratory Depth Respiratory Pattern Tachypnea Blood Pressure Blood Pressure Mean Blood Pressure Source Blood Pressure Position Blood Pressure Location Pulse Ox 96 Oxygen Delivery Method Nasal Cannula Nasal Cannula Oxygen Flow Rate (L/min) 2 2 Weight Weight: 109.6 kg Body Mass Index (BMI) 37.8 Physical Exam Const alert, oriented x3 and no apparent distress General Appearance: cooperative, well kempt and well developed Orientation / Consciousness: awake, oriented to person, oriented to place and oriented to time HEENT normocephalic, head/scalp atraumatic and moist oral mucous membranes Eyes PERRL, EOMs intact bilaterally and conjunctivae normal Neck supple, no JVD, thyroid normal and no carotid bruits General: trachea midline Resp normal respiratory effort Resp Narrative: There are decreased breath sounds at the bases bilaterally, no rales rhonchi or wheezes were noted however Auscultation: Negative for rales, rhonchi or wheezes Cardio S1 normal heart sound, S2 normal heart sound, no murmurs, no rub and no gallops Cardio Narrative: Heart rate and rhythm is irregular GI normal to inspection, nondistended, normoactive bowel sounds, soft to palpation, non-tender and non-distended Extremity Extremity Narrative: Patient has mild edema of the lower legs Skin no rashes or lesions noted General Skin Exam: no breakdown Neuro oriented x3, CN's II-XII intact bilaterally, moves all extremities, no focal motor deficits and no sensory deficits noted Sensorium / Orientation: awake and alert Speech: speech normal Psych affect normal Results Lab / Micro Data 12/30/24 14:22 12/30/24 14:22 Labs: Laboratory Results - last 24 hr 12/30/24 14:22: WBC 9.9, RBC 4.19 L, Hgb 11.7 L, Hct 35.7 L, MCV 85.2, MCH 27.9, MCHC 32.8, RDW Std Deviation 44.2 H, RDW Coeff of Flaco 14.3, Plt Count 243, MPV 10.4, Immature Gran % (Auto) 0.500, Neut % (Auto) 82.8 H, Lymph % (Auto) 6.9 L, [place] % (Auto) 8.3, Eos % (Auto) 1.2, Baso % (Auto) 0.3, Absolute Neuts (auto) 8.2 H, Absolute Lymphs (auto) 0.68 L, Nucleated RBC % 0, PT 20.5 H, INR 1.7, APTT 36.7 H, Sodium 137, Potassium 4.0, Chloride 100, Carbon Dioxide 23.1, Anion Gap 14, BUN 16, Creatinine 0.95, Estim Creat Clear Calc 86.71, Est GFR (MDRD) Non-Af 84, BUN/Creatinine Ratio 16.5, Glucose 191 H, Calcium 10.7, Troponin T High Sens 74 H*, NT pro BNP II 1962 H 12/30/24 16:18: Troponin T Hi Sens 2 Hr 77 H* 12/30/24 18:30: Troponin T Hi Sens 4Hr 80 H* Imaging Radiology Impression Chest X-Ray 12/30/24 17:00 IMPRESSION: 1. Scattered right airspace opacities and trace bibasilar pleural effusions. 2. Mild cardiomegaly and mild pulmonary vascular congestion. Reading Location: [facility] Assessment & Plan Assessment/Plan (1) CHF exacerbation: PLAN: Plan 1. Acute exacerbation of chronic diastolic congestive heart failure-patient will be admitted to PCU, IV Lasix will be administered, pulse ox will be monitored. Patient's last echocardiogram was done earlier this year and showed an EF of 70% and severe pulmonary hypertension. #2 community-acquired pneumonia right lung-patient has patchy infiltrates in the right lung which could indicate community-acquired pneumonia, I have decided to leave the patient on IV Zithromax and Rocephin for now, patient's white blood cell count however is normal. #3 chronic atrial fibrillation-patient's INR is subtherapeutic, I will administer an extra 5 mg of warfarin tonight and recheck his INR tomorrow, patient is on rate limiting medication #4 severe pulmonary hypertension-patient will need additional diuretics when he is discharged home, it appears he is only taking spironolactone at home, complicates care, management, recovery, and prognosis. Patient states that he is currently seeing Dr. Perea and will need to undergo a heart catheterization before he can be placed on medication for pulmonary hypertension. This has not been scheduled yet. #5 type 2 diabetes-patient will be placed on sliding scale insulin per fingerstick blood sugars, I will place the patient on 20 units of Lantus twice daily for his basal insulin #6 hypoxia secondary to #1, #2, and #4-patient's pulse ox will be monitored #7 hyperlipidemia-patient is on a statin #8 BPH-patient is on Flomax Total clinical time spent by myself addressing the patient's medical issues, reviewing all of his data, and collaborating with patient's care team: 75 minutes Charges/Coding Visit Charges Inpatient E&M: 41816 Init Hosp L3 D/C Safety Score for UGIB Assessment Haja-Blatchford Bleeding Score (GBS): Stratifies upper GI bleeding patients who are low-risk and candidates for outpatient management. Hemoglobin, BUN, Recent Vital Signs: Hgb 11.7 g/dL (13.0-16.5) L 12/30/24 14:22 BUN 16 mg/dL (4-19) 12/30/24 14:22 Pulse Rate 91 Blood Pressure 131/81 Score Interpretation: Score of 0: A GBS of 0 is a ?Low Risk? GI bleed, and is highly sensitive (99.6% in a 2007 retrospective study) for predicting which patients did not require any ?medical intervention?: blood transfusion, endoscopy, or surgery. This was confirmed in a 2009 [facility] study where patients with a score of 0 were actually discharged and had no GI bleeding mortality at 6 month followup Score above 0: A GBS greater than zero suggests a ?High Risk? GI bleed that is likely to require ?medical intervention?: transfusion, endoscopy, or surgery. A higher GBS also correlated with a higher likelihood of needing intervention Scores >/= 6 are associated with >50% risk of needing intervention D/C Safety Score for LGIB Assessment Assessment Tool: Readmission and adverse event risk in patients with acute lower GI bleeding. Hemoglobin and Recent Vital Signs: Hgb 11.7 g/dL (13.0-16.5) L 12/30/24 14:22 Pulse Rate 91 12/30/24 20:07 Blood Pressure 131/81 12/30/24 19:30 Score Interpretation: Probability Percentage of safe discharge (absence of rebleeding, blood transfusion, therapeutic intervention, 28 day readmission, or ) Score of 8 or below: Consider discharge, with appropriate precautions. Score of 9 or above: Discharge NOT recommended. Consider admission with further workup and resuscitation as necessary.
[2024-12-30] MEDS: Warfarin (PBKC) 5 MG Tablet PO (21:59)
[2024-12-30] MEDS: Furosemide 20 MG/2 ML VIAL IV (22:21)
[2024-12-31] VITALS (9 sets, daily range): BP systolic 103–131; BP diastolic 74–85; PULSE 68–87; RESP 18–20; TEMP 36.5–36.9; O2SAT 94–99
[2024-12-31 04:59] LABS: Hematocrit 39.5 % (40-54); Hemoglobin 13.0 g/dL (13.0-16.5); Immature Granulocytes Count 0.040 X10^3/uL (0.0-0.0); Mean Corp Hgb Conc 32.9 g/dL (32-36); Mean Corpuscular Volume 86.2 fL (80-94); Mean Platelet Vol. 9.5 fl (6.2-12.0); NRBC Flagged by Analyzer 0 % (0-5); Platelet Count 247 K/mm3 (150-450); RBC Distribution Width CV 14.3 % (11.6-14.6); RBC Distribution Width SD 45.1 fl (35.1-43.9); Red Blood Count 4.58 M/mm3 (4.6-6.2); White Blood Count 10.2 K/mm3 (4.4-11.0)
[2024-12-31 05:36] LABS: Anion Gap 12 (5-15); BUN 16 mg/dL (4-19); BUN/Creat Ratio 16.6 RATIO (10-20); Calcium,Total 11.0 mg/dL (7.6-11.0); Carbon Dioxide 25.7 mmol/L (21.0-32.0); Chloride 99 mmol/L (98-108); Estimated Creatinine Clearance 81.79 ml/min (50-250); Glucose 133 mg/dL (70-99); Potassium 3.9 mmol/L (3.3-5.1)
[2024-12-31 05:51] LABS: Prothrombin Time (Protime)PT. 19.8 SECONDS (11.7-14.9)
[2024-12-31] MEDS: Furosemide 20 MG/2 ML VIAL IV ×3 (06:08→21:10)
[2024-12-31] MEDS: FLU VACCINE HIGH DOSE 25-26(65YR UP) 180 MCG/0.5 ML SYRINGE IM (10:18)
[2024-12-31] MEDS: Insulin Glargine-YFGN 100 UNIT/ML Pen 20 UNIT SC ×2 (10:18→21:14)
--- NOTE | 2024-12-31 10:34 | PN.HOSP_ITS ---
Subjective Subjective Feels about the same as when he came in, still requiring oxygen Objective Data Objective Data Vital Signs: Vital Signs Temp Pulse Resp BP Pulse Ox O2 Del Method O2 Flow Rate 98.2 F 80 20 H 119/78 95 Nasal Cannula 1 12/31/24 10:00 12/31/24 10:17 12/31/24 10:00 12/31/24 10:00 12/31/24 10:00 12/31/24 10:00 12/31/24 10:00 Oxygen Flow Rate (L/min) 1 Oxygen Delivery Method Nasal Cannula Weight: 241 lb 10.026 oz Body Mass Index (BMI) 37.8 Intake & Output: Intake and Output for Last 24 Hours 12/30/24 12/31/24 01/01/25 03:59 03:59 03:59 Output Total 250 / 250 Balance -250 / -250 Lab / Micro Data 12/31/24 04:30 12/31/24 04:30 Labs: Laboratory Results - last 24 hr 12/30/24 14:22: WBC 9.9, RBC 4.19 L, Hgb 11.7 L, Hct 35.7 L, MCV 85.2, MCH 27.9, MCHC 32.8, RDW Std Deviation 44.2 H, RDW Coeff of Flaco 14.3, Plt Count 243, MPV 10.4, Immature Gran % (Auto) 0.500, Neut % (Auto) 82.8 H, Lymph % (Auto) 6.9 L, [place] % (Auto) 8.3, Eos % (Auto) 1.2, Baso % (Auto) 0.3, Absolute Neuts (auto) 8.2 H, Absolute Lymphs (auto) 0.68 L, Nucleated RBC % 0, PT 20.5 H, INR 1.7, A PTT 36.7 H, Sodium 137, Potassium 4.0, Chloride 100, Carbon Dioxide 23.1, Anion Gap 14, BUN 16, Creatinine 0.95, Estim Creat Clear Calc 86.71, Est GFR (MDRD) Non-Af 84, BUN/Creatinine Ratio 16.5, Glucose 191 H, Calcium 10.7, Troponin T High Sens 74 H*, NT pro BNP II 1962 H 12/30/24 16:18: Troponin T Hi Sens 2 Hr 77 H* 12/30/24 18:30: Troponin T Hi Sens 4Hr 80 H* 12/30/24 20:33: POC Glucose 155 H 12/31/24 04:30: WBC 10.2, RBC 4.58 L, Hgb 13.0, Hct 39.5 L, MCV 86.2, MCH 28.4, MCHC 32.9, RDW Std Deviation 45.1 H, RDW Coeff of Flaco 14.3, Plt Count 247, MPV 9.5, Immature Gran % (Auto) 0.400, Neut % (Auto) 78.5 H, Lymph % (Auto) 10.1 L, Mineral % (Auto) 9.5, Eos % (Auto) 1.2, Baso % (Auto) 0.3, Absolute Neuts (auto) 8.1 H, Absolute Lymphs (auto) 1.03, Nucleated RBC % 0, PT 19.8 H, INR 1.6, Sodium 137, Potassium 3.9, Chloride 99, Carbon Dioxide 25.7, Anion Gap 12, BUN 16, Creatinine 0.95, Estim Creat Clear Calc 81.79, Est GFR (MDRD) Non-Af 84, BUN/Creatinine Ratio 16.6, Glucose 133 H, Calcium 11.0 12/31/24 06:07: POC Glucose 126 H Micro: Microbiology 12/30/24 23:55 Urine, Clean Catch Legionella Antigen - Final 12/30/24 23:55 Urine, Clean Catch Streptococcus pneumoniae Antigen (M - Final Radiography Diagnostic Testing: Radiology Impression Chest X-Ray 12/30/24 17:00 IMPRESSION: 1. Scattered right airspace opacities and trace bibasilar pleural effusions. 2. Mild cardiomegaly and mild pulmonary vascular congestion. Reading Location: [facility] Physical Exam Narrative General: Alert, Oriented x3, Cooperative, No apparent distress HEENT: Atraumatic, PERRLA, EOMI, Normocephalic Oral: Moist Mucosa Neck: Supple, No JVD Lungs: Diminished, Normal air movement, No rhonchi, No wheeze, No rales Cardiovascular: Regular rate, Regular Rhythm, Normal S1, Normal S2, No murmurs Abdomen: Soft, Non Tender, Non-Distended, No Hepato-splenomegaly Extremities: Trace edema, Capillary Refill Less than 3 Seconds Skin: No rashes, No breakdown Musculoskeletal: No Tenderness to Palpation of Joints or Extremities Neurological: No focal neurological deficits, moves all extremities Psych/Mental Status: Normal Affect, Appropriate Assessment & Plan Assessment/Plan (1) CHF exacerbation: PLAN: Plan 1. Acute hypoxic respiratory sufficiency secondary to acute on chronic diastolic CHF and community-acquired pneumonia in the right lung ? Continue with IV diuresis ? Previous echo demonstrated an EF of 70% severe pulmonary hypertension with a PASP of 90 mmHg ? Continue with antibiotics 2. A-fib/essential HTN/HLD/severe pulmonary hypertension ? Continue with his home blood pressure medications ? Blood pressures are stable ? Continue with statin ? Continue with Coumadin ? Continue with diuresis 3. DM2 ? Continue with insulin ? Accu-Cheks ? Will monitor make adjustments as necessary 4. BPH ? Stable ? Continue with Flomax DVT: Coumadin Charges/Coding Visit Charges Inpatient E&M: 82696 Subs Hosp L2
[2024-12-31] MEDS: 0.9% Saline Lock 10 ML Syringe IV ×2 (11:42→21:18)
[2024-12-31] MEDS: 0.9% Normal Saline (250mL Bag) 250 ML 15 ML IV (11:42)
--- NOTE | 2024-12-31 11:50 | CASEMGMT ---
RN CM Face to Face with patient for initial transition planning/care coordination assessment. RN CM introduced self and role at [facility]. Patient sitting in chair, alert and oriented, sister and AMAYA at bedside. Patient willing to participate in assessment and is able to answer all questions appropriately. Care providers, pharmacy, and demographics verified. Strata: 2 PCP: Sofya, [employer] Specialists: FLASH, cardiology; Brit, plastic mixer; Preferred Pharmacy: [facility] Insurance: [facility] Prescription Benefit: yes Living Will/HPOA: yes but wants to update, SW notified. LNOK: daughter, son, sister Living Arrangements: Patient lives alone in a bilevel home. Patient states he is independent and able to ambulate stairs. Transportation: sister, AMAYA DME/HHC: Patient has shower chair, cane, walker, rollator, bipap, pulse ox, and glucometer at home. Will monitor for home oxygen, prefers [employer]. No previous HHC. Patient has been to [facility] in the past. Patient wishes to discharge home, denies need for home health at this time. Patient states he has no further needs or concerns at this time. CM to follow for discharge planning needs that may arise. Disposition Plan: Patient to discharge home with family support and follow-up up plans in place. Will monitor for home oxygen. Debbie TELLEZ, RN, CM
[2024-12-31] MEDS: Azithromycin 500 MG in 0.9% Normal Saline (250mL Bag) 250 ML 250 MG IV (14:35)
[2024-12-31] MEDS: Warfarin (PBKC) 2 MG Tablet PO (17:42)
[2025-01-01] VITALS (11 sets, daily range): BP systolic 106–129; BP diastolic 62–81; PULSE 70–89; RESP 18–22; TEMP 36.2–36.9; O2SAT 93–97; BMI 36.8
[2025-01-01 05:39] LABS: Hematocrit 40.8 % (40-54); Hemoglobin 13.2 g/dL (13.0-16.5); Immature Granulocytes Count 0.050 X10^3/uL (0.0-0.0); Mean Corp Hgb Conc 32.4 g/dL (32-36); Mean Corpuscular Volume 86.1 fL (80-94); Mean Platelet Vol. 9.7 fl (6.2-12.0); NRBC Flagged by Analyzer 0 % (0-5); Platelet Count 236 K/mm3 (150-450); RBC Distribution Width CV 13.9 % (11.6-14.6); RBC Distribution Width SD 43.8 fl (35.1-43.9); Red Blood Count 4.74 M/mm3 (4.6-6.2); White Blood Count 10.6 K/mm3 (4.4-11.0)
[2025-01-01 06:00] LABS: Prothrombin Time (Protime)PT. 22.4 SECONDS (11.7-14.9)
[2025-01-01] MEDS: Furosemide 20 MG/2 ML VIAL IV ×3 (06:10→21:10)
[2025-01-01 06:25] LABS: Anion Gap 11 (5-15); BUN 24 mg/dL (4-19); BUN/Creat Ratio 21.8 RATIO (10-20); Calcium,Total 11.0 mg/dL (7.6-11.0); Carbon Dioxide 27.6 mmol/L (21.0-32.0); Chloride 98 mmol/L (98-108); Estimated Creatinine Clearance 69.62 ml/min (50-250); Glucose 106 mg/dL (70-99); Potassium 3.8 mmol/L (3.3-5.1)
--- NOTE | 2025-01-01 08:31 | PCM.PN.HOSP ---
Subjective Subjective Resting comfortably on CPAP Objective Data Objective Data Vital Signs: Vital Signs Temp Pulse Resp BP Pulse Ox O2 Del Method O2 Flow Rate 97.2 F L 81 18 124/78 H 97 CPAP 1 01/01/25 03:09 01/01/25 07:12 01/01/25 07:12 01/01/25 03:09 01/01/25 07:12 01/01/25 08:07 01/01/25 04:00 Oxygen Flow Rate (L/min) 1 Oxygen Delivery Method CPAP Weight: 235 lb 0.204 oz Body Mass Index (BMI) 36.8 Intake & Output: Intake and Output for Last 24 Hours 12/31/24 01/01/25 01/02/25 03:59 03:59 03:59 Intake Total 550 / 550 Output Total 250 / 250 1000 / 1000 300 / 300 Balance -250 / -250 -450 / -450 -300 / -300 Lab / Micro Data 01/01/25 05:06 01/01/25 05:06 Labs: Laboratory Results - last 24 hr 12/31/24 11:29: POC Glucose 238 H 12/31/24 17:38: POC Glucose 193 H 12/31/24 21:13: POC Glucose 159 H 01/01/25 05:06: WBC 10.6, RBC 4.74, Hgb 13.2, Hct 40.8, MCV 86.1, MCH 27.8, MCHC 32.4, RDW Std Deviation 43.8, RDW Coeff of Flaco 13.9, Plt Count 236, MPV 9.7, Immature Gran % (Auto) 0.500, Neut % (Auto) 77.7 H, Lymph % (Auto) 10.3 L, [place] % (Auto) 9.2, Eos % (Auto) 1.9, Baso % (Auto) 0.4, Absolute Neuts (auto) 8.2 H, Absolute Lymphs (auto) 1.09, Nucleated RBC % 0, PT 22.4 H, INR 1.9, Sodium 137, Potassium 3.8, Chloride 98, Carbon Dioxide 27.6, Anion Gap 11, BUN 24 H, Creatinine 1.10, Estim Creat Clear Calc 69.62, Est GFR (MDRD) Non-Af 71, BUN/Creatinine Ratio 21.8 H, Glucose 106 H, Calcium 11.0 01/01/25 06:08: POC Glucose 96 Micro: Microbiology 12/30/24 23:55 Urine, Clean Catch Legionella Antigen - Final 12/30/24 23:55 Urine, Clean Catch Streptococcus pneumoniae Antigen (M - Final Physical Exam Narrative General: Alert, Oriented x3, Cooperative, No apparent distress HEENT: Atraumatic, PERRLA, EOMI, Normocephalic Oral: Moist Mucosa Neck: Supple, No JVD Lungs: Diminished, Normal air movement, No rhonchi, No wheeze, No rales Cardiovascular: Regular rate, Regular Rhythm, Normal S1, Normal S2, No murmurs Abdomen: Soft, Non Tender, Non-Distended, No Hepato-splenomegaly Extremities: Trace edema, Capillary Refill Less than 3 Seconds Skin: No rashes, No breakdown Musculoskeletal: No Tenderness to Palpation of Joints or Extremities Neurological: No focal neurological deficits, moves all extremities Psych/Mental Status: Normal Affect, Appropriate Assessment & Plan Assessment/Plan (1) CHF exacerbation: PLAN: Plan 1. Acute hypoxic respiratory sufficiency secondary to acute on chronic diastolic CHF and community-acquired pneumonia in the right lung ? Continue with IV diuresis ? Previous echo demonstrated an EF of 70% severe pulmonary hypertension with a PASP of 90 mmHg ? Continue with antibiotics 2. A-fib/essential HTN/HLD/severe pulmonary hypertension ? Continue with his home blood pressure medications ? Blood pressures are stable ? Continue with statin ? Continue with Coumadin ? Continue with diuresis 3. DM2 ? Continue with insulin ? Accu-Cheks ? Will monitor make adjustments as necessary 4. BPH ? Stable ? Continue with Flomax DVT: Coumadin Charges/Coding Visit Charges Inpatient E&M: 47356 Subs Hosp L2
[2025-01-01] MEDS: Insulin Glargine-YFGN 100 UNIT/ML Pen 20 UNIT SC ×2 (09:49→21:11)
[2025-01-01] MEDS: Azithromycin 500 MG in 0.9% Normal Saline (250mL Bag) 250 ML 250 MG IV (10:43)
[2025-01-01] MEDS: 0.9% Saline Lock 10 ML Syringe IV ×2 (14:13→21:10)
--- NOTE | 2025-01-01 14:57 | CASEMGMT ---
Social Work SW assisted the patient with completing his POA and LW. A copy is in the chart. DAWOOD Maxwell
[2025-01-01] MEDS: Warfarin (PBKC) 4 MG Tablet PO (16:53)
[2025-01-02] VITALS (12 sets, daily range): BP systolic 109–123; BP diastolic 76–88; PULSE 60–79; RESP 16–18; TEMP 36.4–36.8; O2SAT 85–99; BMI 36.8
[2025-01-02 06:03] LABS: Prothrombin Time (Protime)PT. 22.8 SECONDS (11.7-14.9)
[2025-01-02 06:16] LABS: Anion Gap 11 (5-15); BUN 34 mg/dL (4-19); BUN/Creat Ratio 29.2 RATIO (10-20); Calcium,Total 11.0 mg/dL (7.6-11.0); Carbon Dioxide 27.0 mmol/L (21.0-32.0); Chloride 97 mmol/L (98-108); Estimated Creatinine Clearance 65.46 ml/min (50-250); Glucose 129 mg/dL (70-99); Potassium 3.8 mmol/L (3.3-5.1)
[2025-01-02] MEDS: 0.9% Saline Lock 10 ML Syringe IV ×3 (06:32→21:53)
[2025-01-02] MEDS: Furosemide 20 MG/2 ML VIAL IV ×3 (06:32→21:53)
--- NOTE | 2025-01-02 09:13 | PN.HOSP_ITS ---
Subjective Subjective Doing well, will obtain an ambulatory pulse ox today Objective Data Objective Data Vital Signs: Vital Signs Temp Pulse Resp BP Pulse Ox O2 Del Method O2 Flow Rate 98.1 F 76 18 119/88 H 99 Nasal Cannula 2 01/02/25 08:28 01/02/25 08:37 01/02/25 08:28 01/02/25 08:37 01/02/25 08:28 01/02/25 08:31 01/02/25 08:31 Oxygen Flow Rate (L/min) 2 Oxygen Delivery Method Nasal Cannula Weight: 235 lb 0.204 oz Body Mass Index (BMI) 36.8 Intake & Output: Intake and Output for Last 24 Hours 01/01/25 01/02/25 01/03/25 03:59 03:59 03:59 Intake Total 550 / 550 900 / 900 Output Total 1000 / 1000 1150 / 1150 300 / 300 Balance -450 / -450 -250 / -250 -300 / -300 Lab / Micro Data 01/01/25 05:06 01/02/25 05:13 Labs: Laboratory Results - last 24 hr 01/01/25 11:38: POC Glucose 115 H 01/01/25 16:48: POC Glucose 207 H 01/01/25 21:06: POC Glucose 277 H 01/02/25 05:13: PT 22.8 H, INR 2.0, Sodium 135, Potassium 3.8, Chloride 97 L, Carbon Dioxide 27.0, Anion Gap 11, BUN 34 H, Creatinine 1.17, Estim Creat Clear Calc 65.46, Est GFR (MDRD) Non-Af 66, BUN/Creatinine Ratio 29.2 H, Glucose 129 H , Calcium 11.0 Micro: Microbiology 12/30/24 23:55 Urine, Clean Catch Legionella Antigen - Final 12/30/24 23:55 Urine, Clean Catch Streptococcus pneumoniae Antigen (M - Final Physical Exam Narrative General: Alert, Oriented x3, Cooperative, No apparent distress HEENT: Atraumatic, PERRLA, EOMI, Normocephalic Oral: Moist Mucosa Neck: Supple, No JVD Lungs: Diminished, Normal air movement, No rhonchi, No wheeze, No rales Cardiovascular: Regular rate, Regular Rhythm, Normal S1, Normal S2, No murmurs Abdomen: Soft, Non Tender, Non-Distended, No Hepato-splenomegaly Extremities: Trace edema, Capillary Refill Less than 3 Seconds Skin: No rashes, No breakdown Musculoskeletal: No Tenderness to Palpation of Joints or Extremities Neurological: No focal neurological deficits, moves all extremities Psych/Mental Status: Normal Affect, Appropriate Assessment & Plan Assessment/Plan (1) CHF exacerbation: PLAN: Plan 1. Acute hypoxic respiratory sufficiency secondary to acute on chronic diastolic CHF and community-acquired pneumonia in the right lung ? Continue with IV diuresis ? Previous echo demonstrated an EF of 70% severe pulmonary hypertension with a PASP of 90 mmHg ? Continue with antibiotics, will complete azithromycin today ? Will obtain an ambulatory pulse ox and discussed plans for discharge 2. A-fib/essential HTN/HLD/severe pulmonary hypertension ? Continue with his home blood pressure medications ? Blood pressures are stable ? Continue with statin ? Continue with Coumadin ? Continue with diuresis 3. DM2 ? Continue with insulin ? Accu-Cheks ? Will monitor make adjustments as necessary 4. BPH ? Stable ? Continue with Flomax DVT: Coumadin Charges/Coding Visit Charges Inpatient E&M: 03369 Subs Hosp L2
[2025-01-02] MEDS: Azithromycin 500 MG in 0.9% Normal Saline (250mL Bag) 250 ML 250 MG IV (10:47)
[2025-01-02] MEDS: Warfarin (PBKC) 4 MG Tablet PO (16:31)
[2025-01-02] MEDS: Insulin Glargine-YFGN 100 UNIT/ML Pen 25 UNIT SC (21:53)
[2025-01-03] VITALS (15 sets, daily range): BP systolic 102–117; BP diastolic 69–83; PULSE 65–85; RESP 16–18; TEMP 36.3–36.8; O2SAT 87–100; BMI 36.6
[2025-01-03 04:44] LABS: Hematocrit 40.9 % (40-54); Hemoglobin 13.6 g/dL (13.0-16.5); Immature Granulocytes Count 0.040 X10^3/uL (0.0-0.0); Mean Corp Hgb Conc 33.3 g/dL (32-36); Mean Corpuscular Volume 85.2 fL (80-94); Mean Platelet Vol. 9.7 fl (6.2-12.0); NRBC Flagged by Analyzer 0 % (0-5); Platelet Count 230 K/mm3 (150-450); RBC Distribution Width CV 13.7 % (11.6-14.6); RBC Distribution Width SD 42.5 fl (35.1-43.9); Red Blood Count 4.80 M/mm3 (4.6-6.2); White Blood Count 9.0 K/mm3 (4.4-11.0)
[2025-01-03 05:47] LABS: Anion Gap 11 (5-15); BUN 38 mg/dL (4-19); BUN/Creat Ratio 32.3 RATIO (10-20); Calcium,Total 10.8 mg/dL (7.6-11.0); Carbon Dioxide 28.2 mmol/L (21.0-32.0); Chloride 97 mmol/L (98-108); Estimated Creatinine Clearance 64.23 ml/min (50-250); Glucose 120 mg/dL (70-99); Potassium 3.8 mmol/L (3.3-5.1)
[2025-01-03 05:51] LABS: Prothrombin Time (Protime)PT. 25.8 SECONDS (11.7-14.9)
[2025-01-03] MEDS: 0.9% Saline Lock 10 ML Syringe IV ×4 (06:22→21:39)
[2025-01-03] MEDS: Furosemide 20 MG/2 ML VIAL IV (06:23)
[2025-01-03] MEDS: Insulin Glargine-YFGN 100 UNIT/ML Pen 25 UNIT SC ×2 (08:26→21:40)
[2025-01-03] MEDS: 0.9% Normal Saline (250mL Bag) 250 ML IV (09:41)
--- NOTE | 2025-01-03 10:19 | PCM.PN.HOSP ---
Subjective Subjective Resting comfortably, he did need 8 L with ambulation Objective Data Objective Data Vital Signs: Vital Signs Temp Pulse Resp BP Pulse Ox O2 Del Method O2 Flow Rate 98.3 F 76 17 117/83 H 98 Nasal Cannula 2 01/03/25 08:22 01/03/25 08:27 01/03/25 08:22 01/03/25 08:22 01/03/25 09:43 01/03/25 09:43 01/03/25 09:43 Oxygen Flow Rate (L/min) 2 Oxygen Delivery Method Nasal Cannula Weight: 234 lb 2.095 oz Body Mass Index (BMI) 36.6 Intake & Output: Intake and Output for Last 24 Hours 01/02/25 01/03/25 01/04/25 03:59 03:59 03:59 Intake Total 900 / 900 500 / 500 300 / 300 Output Total 1150 / 1150 950 / 950 400 / 400 Balance -250 / -250 -450 / -450 -100 / -100 Lab / Micro Data 01/03/25 04:16 01/03/25 04:16 Labs: Laboratory Results - last 24 hr 01/02/25 11:46: POC Glucose 122 H 01/02/25 16:29: POC Glucose 133 H 01/02/25 21:51: POC Glucose 172 H 01/03/25 04:16: WBC 9.0, RBC 4.80, Hgb 13.6, Hct 40.9, MCV 85.2, MCH 28.3, MCHC 33.3, RDW Std Deviation 42.5, RDW Coeff of Flaco 13.7, Plt Count 230, MPV 9.7, Immature Gran % (Auto) 0.400, Neut % (Auto) 72.5 H, Lymph % (Auto) 13.5 L, [place] % (Auto) 10.1 H, Eos % (Auto) 2.9, Baso % (Auto) 0.6, Absolute Neuts (auto) 6.5, Absolute Lymphs (auto) 1.21, Nucleated RBC % 0, PT 25.8 H, INR 2.3, Sodium 135, Potassium 3.8, Chloride 97 L, Carbon Dioxide 28.2, Anion Gap 11, BUN 38 H, Creatinine 1.19, Estim Creat Clear Calc 64.23, Est GFR (MDRD) Non-Af 64, BUN/Creatinine Ratio 32.3 H, Glucose 120 H, Calcium 10.8 01/03/25 06:21: POC Glucose 118 H Micro: Microbiology 12/30/24 23:55 Urine, Clean Catch Legionella Antigen - Final 12/30/24 23:55 Urine, Clean Catch Streptococcus pneumoniae Antigen (M - Final Physical Exam Narrative General: Alert, Oriented x3, Cooperative, No apparent distress HEENT: Atraumatic, PERRLA, EOMI, Normocephalic Oral: Moist Mucosa Neck: Supple, No JVD Lungs: Diminished, Normal air movement, No rhonchi, No wheeze, No rales Cardiovascular: Regular rate, Regular Rhythm, Normal S1, Normal S2, No murmurs Abdomen: Soft, Non Tender, Non-Distended, No Hepato-splenomegaly Extremities: Trace edema, Capillary Refill Less than 3 Seconds Skin: No rashes, No breakdown Musculoskeletal: No Tenderness to Palpation of Joints or Extremities Neurological: No focal neurological deficits, moves all extremities Psych/Mental Status: Flat Assessment & Plan Assessment/Plan (1) CHF exacerbation: PLAN: Plan 1. Acute hypoxic respiratory sufficiency secondary to acute on chronic diastolic CHF and community-acquired pneumonia in the right lung ? Continue with IV diuresis ? Previous echo demonstrated an EF of 70% severe pulmonary hypertension with a PASP of 90 mmHg ? Continue with antibiotics, will complete azithromycin today ? Ambulatory pulse ox demonstrates an 8 L need consistent with his severe pulmonary hypertension ? Will add a fluid restriction 2. A-fib/essential HTN/HLD/severe pulmonary hypertension ? Continue with his home blood pressure medications ? Blood pressures are stable ? Continue with statin ? Continue with Coumadin ? Continue with diuresis 3. DM2 ? Continue with insulin ? Accu-Cheks ? Will monitor make adjustments as necessary 4. BPH ? Stable ? Continue with Flomax DVT: Coumadin Charges/Coding Visit Charges Inpatient E&M: 23098 Subs Hosp L2
--- NOTE | 2025-01-03 15:10 | CPS ---
I.S./PEP was ordered. This R.T. took the devices in, explained who I was, what the Dr ordered. Pt said he did not want either device. Backlined Dr Gray and order was cancelled.
[2025-01-03] MEDS: Warfarin (PBKC) 4 MG Tablet PO (16:29)
[2025-01-04] VITALS (17 sets, daily range): BP systolic 96–120; BP diastolic 66–80; PULSE 65–98; RESP 17–18; TEMP 36.4–36.7; O2SAT 84–99; BMI 36.3
[2025-01-04] MEDS: 0.9% Saline Lock 10 ML Syringe IV ×4 (06:29→21:35)
[2025-01-04 07:24] LABS: Anion Gap 13 (5-15); BUN 43 mg/dL (4-19); BUN/Creat Ratio 37.8 RATIO (10-20); Calcium,Total 11.2 mg/dL (7.6-11.0); Carbon Dioxide 27.7 mmol/L (21.0-32.0); Chloride 96 mmol/L (98-108); Estimated Creatinine Clearance 67.35 ml/min (50-250); Glucose 85 mg/dL (70-99); Potassium 3.8 mmol/L (3.3-5.1)
[2025-01-04] MEDS: Insulin Glargine-YFGN 100 UNIT/ML Pen 25 UNIT SC ×2 (10:00→21:34)
--- NOTE | 2025-01-04 11:02 | PCM.PN.HOSP ---
Subjective Subjective Doing well with the increase in Lasix dosing, renal function stable Objective Data Objective Data Vital Signs: Vital Signs Temp Pulse Resp BP Pulse Ox O2 Del Method O2 Flow Rate 97.9 F 74 18 96/69 93 Room Air 2 01/04/25 09:31 01/04/25 09:31 01/04/25 09:31 01/04/25 09:31 01/04/25 09:31 01/04/25 10:00 01/03/25 09:43 Oxygen Flow Rate (L/min) 2 Oxygen Delivery Method Room Air Weight: 232 lb 2.348 oz Body Mass Index (BMI) 36.3 Intake & Output: Intake and Output for Last 24 Hours 01/03/25 01/04/25 01/05/25 03:59 03:59 03:59 Intake Total 500 / 500 965.98 / 965.98 Output Total 950 / 950 1250 / 1250 400 / 400 Balance -450 / -450 -284.02 / -284.02 -400 / -400 Lab / Micro Data 01/03/25 04:16 01/04/25 06:13 Labs: Laboratory Results - last 24 hr 01/03/25 11:08: POC Glucose 103 01/03/25 16:27: POC Glucose 143 H 01/03/25 21:34: POC Glucose 146 H 01/04/25 06:13: Sodium 137, Potassium 3.8, Chloride 96 L, Carbon Dioxide 27.7, Anion Gap 13, BUN 43 H, Creatinine 1.13, Estim Creat Clear Calc 67.35, Est GFR (MDRD) Non-Af 69, BUN/Creatinine Ratio 37.8 H, Glucose 85, Calcium 11.2 H 01/04/25 06:24: POC Glucose 84 01/04/25 09:58: POC Glucose 179 H Micro: Microbiology 12/30/24 23:55 Urine, Clean Catch Legionella Antigen - Final 12/30/24 23:55 Urine, Clean Catch Streptococcus pneumoniae Antigen (M - Final Physical Exam Narrative General: Alert, Oriented x3, Cooperative, No apparent distress HEENT: Atraumatic, PERRLA, EOMI, Normocephalic Oral: Moist Mucosa Neck: Supple, No JVD Lungs: Diminished, Normal air movement, No rhonchi, No wheeze, No rales Cardiovascular: Regular rate, Regular Rhythm, Normal S1, Normal S2, No murmurs Abdomen: Soft, Non Tender, Non-Distended, No Hepato-splenomegaly Extremities: Trace edema, Capillary Refill Less than 3 Seconds Skin: No rashes, No breakdown Musculoskeletal: No Tenderness to Palpation of Joints or Extremities Neurological: No focal neurological deficits, moves all extremities Psych/Mental Status: Flat Assessment & Plan Assessment/Plan (1) CHF exacerbation: PLAN: Plan 1. Acute hypoxic respiratory sufficiency secondary to acute on chronic diastolic CHF and community-acquired pneumonia in the right lung ? Continue with IV diuresis, increased to 40 mg of Lasix 3 times daily ? Previous echo demonstrated an EF of 70% severe pulmonary hypertension with a PASP of 90 mmHg ?He completed 5 days of Rocephin and 3 days of azithromycin ? Ambulatory pulse ox demonstrates an 8 L need consistent with his severe pulmonary hypertension ? Will add a fluid restriction 2. A-fib/essential HTN/HLD/severe pulmonary hypertension ? Continue with his home blood pressure medications ? Blood pressures are stable ? Continue with statin ? Continue with Coumadin ? Continue with diuresis 3. DM2 ? Continue with insulin ? Accu-Cheks ? Will monitor make adjustments as necessary 4. BPH ? Stable ? Continue with Flomax DVT: Coumadin Charges/Coding Visit Charges Inpatient E&M: 57243 Subs Hosp L2
[2025-01-04] MEDS: Warfarin (PBKC) 2 MG Tablet PO (16:59)
[2025-01-05] VITALS (8 sets, daily range): BP systolic 110–116; BP diastolic 79–89; PULSE 71–83; RESP 4–18; TEMP 36.4–36.6; O2SAT 83–100; BMI 35.5
[2025-01-05 06:39] LABS: Anion Gap 12 (5-15); BUN 44 mg/dL (4-19); BUN/Creat Ratio 38.9 RATIO (10-20); Calcium,Total 11.2 mg/dL (7.6-11.0); Carbon Dioxide 28.7 mmol/L (21.0-32.0); Chloride 96 mmol/L (98-108); Estimated Creatinine Clearance 66.00 ml/min (50-250); Glucose 139 mg/dL (70-99); Potassium 3.8 mmol/L (3.3-5.1)
[2025-01-05] MEDS: 0.9% Saline Lock 10 ML Syringe IV (06:40)
--- NOTE | 2025-01-05 09:59 | PCM.DC ---
Discharge Instructions DC O2, CPAP, BIPAP needs Home O2 Discharge instructions: No Dressing / Incision Discharge Activity: Return to Normal Activity Dressing / Incision Call your doctor if you observe: Fever of 101 or Higher, Shortness of breath, Dizziness, Fainting spells, Swelling in the ankles, Chest pain and Increased palpitations (irregular heartbeat) Follow Up Care Test Results: Test results from this visit will be discussed in further detail at your follow-up appointment, if applicable. Discharge Plan Admission Admit Date/Time: 12/30/24 18:19 Attending Provider: David Gray Primary Care Provider: Linwood Cowart Consulting Providers: Luis Nieto Additional Instructions / Restrictions: Follow-up with your primary care doctor to monitor your kidney function since you are being restarted on Lasix. The Lasix had nothing to do with intermittent leg pain or numbness and tingling so would recommend continuing to take this to help your breathing and your heart failure. Discharge Orders/Prescriptions Prescriptions: New furosemide [Lasix] 40 mg tablet 40 mg PO DAILY Qty: 30 0RF Continued cyanocobalamin (vitamin B-12) 1,000 mcg capsule 1,000 mcg PO DAILY spironolactone 25 mg tablet 25 mg PO DAILY acetaminophen 500 mg capsule 500 mg PO Q6H PRN (Reason: fever or pain) insulin glargine [Lantus Solostar U-100 Insulin] 100 unit/mL (3 mL) insulin pen 55 unit subcut QPM cholecalciferol (vitamin D3) 1,250 mcg (50,000 unit) capsule 1,250 mcg PO QWEEK Patient Comments: takes Saturday night tamsulosin [Flomax] 0.4 mg capsule 0.4 mg PO DAILY metformin 500 mg tablet 500 mg PO QDAY Patient Comments: pt states takes it as needed pravastatin 20 mg tablet 20 mg PO DAILY glimepiride 4 mg tablet 4 mg PO DAILY Qty: 60 0RF ferrous sulfate 325 mg (65 mg iron) capsule, extended release 325 mg PO .3 x week (DME) CPAP - Continuous Positive Airway Pressure([facility] INFORMATIONAL USE ONLY) 0 .ROUTE .MEDSUPPLY Patient Comments: autoset metoprolol tartrate 50 mg tablet 50 mg PO BID Qty: 180 3RF warfarin 4 mg tablet 4 mg PO .COMPLEX Qty: 120 3RF Protocol: Dose Management Condition: Saturday Dose/Route: 4 mg Instruction: 1 x 4 mg tablet Condition: Saturday Dose/Route: 2 mg Instruction: 0.5 x 4 mg tablets Condition: Saturday Dose/Route: 2 mg Instruction: 0.5 x 4 mg tablets Condition: Saturday Dose/Route: 2 mg Instruction: 0.5 x 4 mg tablets Condition: Dose/Route: 2 mg Instruction: 0.5 x 4 mg tablets Condition: Saturday Dose/Route: 4 mg Instruction: 1 x 4 mg tablet Condition: Saturday Dose/Route: 4 mg Instruction: 1 x 4 mg tablet Protocol Text: Adjustment Start Date: Saturday11/25/24 INR Value: 2.2 INR Date: 11/25/24 Recheck Date: 12/25/24 Patient Comments: Pt's last INR was 4 and he was directed to take .5 tab Saturday, Saturday, Saturday, , and a full tab Saturday, Saturday, and Saturday. Rx Instructions: 4 mg orally daily except 1/2 tablet (2mg) on , , Saturday; or as directed. Please give 180 tablets for dose changes. Referrals / Follow Up: Geoffrey Cowart Matilde, [employer] L[employer] COMPRESSOR-C [[facility], [facility]] - Within 1 Week Disposition Disposition (needs filled in before D/C Order can be placed): Home, Self Care
--- NOTE | 2025-01-05 11:27 | PHA.DC_ITS ---
Pharmacy [facility] Counseling Pharmacy Service has performed discharge medication reconciliation and counseling for this patient. 1. FUROSEMIDE 40MG PO DAILY The patient's discharge medication list was reviewed for discrepancies and discrepancies were resolved. The patient was counseled on the following discharge medications and changes in medications for homegoing were reviewed. The Reason for Use, instructions for use, and potential side effects were reviewed for all new medications. The patient's questions regarding all of their medications were answered. The patient was able to verbally demonstrate an understanding of their discharge medications. Medications at Discharge Home Medications pravastatin 20 mg tablet 20 mg PO DAILY 01/26/21 glimepiride 4 mg tablet 4 mg PO DAILY #60 tabs 02/07/21 acetaminophen 500 mg capsule 500 mg PO Q6H PRN fever or pain 11/08/21 cyanocobalamin (vitamin B-12) 1,000 mcg capsule 1,000 mcg PO DAILY 11/08/21 ferrous sulfate 325 mg (65 mg iron) capsule,extended release 325 mg PO .3 x week 11/08/21 spironolactone 25 mg tablet 25 mg PO DAILY 11/08/21 insulin glargine 100 unit/mL (3 mL) subcutaneous pen (Lantus Solostar U-100 Insulin) 55 unit subcut QPM 01/09/22 cholecalciferol (vitamin D3) 1,250 mcg (50,000 unit) capsule 1,250 mcg PO QWEEK 03/08/22 tamsulosin 0.4 mg capsule (Flomax) 0.4 mg PO DAILY 09/14/22 metoprolol tartrate 50 mg tablet 50 mg PO BID #180 tabs 05/04/24 warfarin 4 mg tablet 4 mg PO .COMPLEX #120 tabs 09/22/24 metformin 500 mg tablet 500 mg PO QDAY 11/25/24 CPAP - Continuous Positive Airway Pressure([facility] INFORMATIONAL USE ONLY) 01/03/25 furosemide 40 mg tablet (Lasix) 40 mg PO DAILY #30 tabs 01/05/25
--- NOTE | 2025-01-05 11:39 | CASEMGMT ---
Patient has order for discharge. Patient qualifies for home oxygen, script received. STEVE RIDLEY in to discuss needs at discharge with patient. Patient aware of home oxygen setup and prefers [employer]. Patient denies HHC or Outpatient therapy at discharge. Patient denies needs or help at discharge. Patient had no further questions or concerns. STEVE RIDLEY sent referral to [employer] via [facility] and arranged for tank to be delivered to patient's room. STEVE RIDLEY updated discharge plan.
[2025-01-05] MEDS: Insulin Glargine-YFGN 100 UNIT/ML Pen 25 UNIT SC (12:08)
--- NOTE | 2025-01-05 12:47 | DS.PCM_ITS ---
Providers Date of Admission: 12/30/24 Primary Care Physician: Linwood Cowart Reason For Visit: PNEUMONIA CONGESTIVE HEART FAILURE Diagnosis Discharge Diagnosis (1) CHF exacerbation: Status: Chronic Code(s): I50.9 - Heart failure, unspecified Medications at Discharge Home Medications pravastatin 20 mg tablet 20 mg PO DAILY 01/26/21 glimepiride 4 mg tablet 4 mg PO DAILY #60 tabs 02/07/21 acetaminophen 500 mg capsule 500 mg PO Q6H PRN fever or pain 11/08/21 cyanocobalamin (vitamin B-12) 1,000 mcg capsule 1,000 mcg PO DAILY 11/08/21 ferrous sulfate 325 mg (65 mg iron) capsule,extended release 325 mg PO .3 x week 11/08/21 spironolactone 25 mg tablet 25 mg PO DAILY 11/08/21 insulin glargine 100 unit/mL (3 mL) subcutaneous pen (Lantus Solostar U-100 Insulin) 55 unit subcut QPM 01/09/22 cholecalciferol (vitamin D3) 1,250 mcg (50,000 unit) capsule 1,250 mcg PO QWEEK 03/08/22 tamsulosin 0.4 mg capsule (Flomax) 0.4 mg PO DAILY 09/14/22 metoprolol tartrate 50 mg tablet 50 mg PO BID #180 tabs 05/04/24 warfarin 4 mg tablet 4 mg PO .COMPLEX #120 tabs 09/22/24 metformin 500 mg tablet 500 mg PO QDAY 11/25/24 CPAP - Continuous Positive Airway Pressure([facility] INFORMATIONAL USE ONLY) 01/03/25 furosemide 40 mg tablet (Lasix) 40 mg PO DAILY #30 tabs 01/05/25 Hospital Course Operations None Procedures None and 2-D Echocardiogram Summary of Care Provided Minutes Spent on Discharge: 33 Hospital Course: Per HPI: BLAYNE ABDI, is a 74 M who presents to the emergency room at [facility] with complaints of shortness of breath over the past few days, he checked his pulse ox at home on room air and it was 67% and he called the squad to transport him to the ER for evaluation. Patient has no complaint of any chest pain. Patient does not have home O2 on a chronic basis. He does have a history of congestive heart failure in the past. Workup in the emergency room included labs including a CBC which showed a normal white blood cell count, hemoglobin was 11.7, chemistry profile was unremarkable except for a glucose of 191, patient's troponin was 74 and repeat troponin in 2 hours was 77. Patient's 4-hour troponin was 80, his beta natruretic peptide was 1962. Patient's EKG showed atrial fibrillation without evidence of ischemic changes. Patient's INR was 1.7. Chest x-ray obtained showed patchy infiltrates in the right lung field, trace bibasilar pleural effusions, mild cardiomegaly and mild pulmonary vascular congestion. Patient required supplemental oxygen at 3 L to maintain his pulse ox above 90%. Patient will be admitted to PCU for acute on chronic diastolic congestive heart failure and pneumonia, he will be given IV Lasix and he was placed on IV Rocephin and Zithromax. Pulse ox will be monitored. Hospital course: 1. Acute hypoxic respiratory sufficiency secondary to acute on chronic diastolic CHF with severe pulmonary hypertension and community-acquired pneumonia in the right lung?74-year-old male presents to the hospital with increasing shortness of breath requiring oxygen on admission. He had a previous echocardiogram in April that demonstrated an EF of 70% with a PASP of 90 mmHg consistent with severe pulmonary hypertension. He was started on IV Lasix 20 mg 3 times daily as well as azithromycin and Rocephin. He did complete his antibiotic course and he had improvement in diuresis with adjustment of his Lasix up to 40 mg IV 3 times daily. On the day of discharge he was able to ambulate on 2 L nasal cannula but was able to be maintained on room air at rest. I have reviewed the oxygen testing, and this patient qualifies for the home equipment and portability. The patient is mobile in the home and the community. I discussed with him the possibility for discharge and he expressed understanding of the risks and benefits of going home and would like to go home today. He did agree to start taking Lasix again at 40 mg p.o. daily. I do recommend outpatient monitoring with his PCP for his kidney function as well as cardiology. 2. A-fib, essential hypertension, hyperlipidemia, type 2 diabetes, BPH chronic medical conditions which complicate his care. His home medications were continued where appropriate Physical Exam Narrative General: Alert, Oriented x3, Cooperative, No apparent distress HEENT: Atraumatic, PERRLA, EOMI, Normocephalic Oral: Moist Mucosa Neck: Supple, No JVD Lungs: Diminished, Normal air movement, No rhonchi, No wheeze, No rales Cardiovascular: Regular rate, Regular Rhythm, Normal S1, Normal S2, No murmurs Abdomen: Soft, Non Tender, Non-Distended, No Hepato-splenomegaly Extremities: Trace edema, Capillary Refill Less than 3 Seconds Skin: No rashes, No breakdown Musculoskeletal: No Tenderness to Palpation of Joints or Extremities Neurological: No focal neurological deficits, moves all extremities Psych/Mental Status: Flat Weight / BMI Weight Weight: 227 lb 1.218 oz Body Mass Index (BMI) 35.5 ABG / Lab / Microbiology Data 01/03/25 04:16 01/05/25 05:45 Laboratory: Laboratory Results - last 24 hr 01/04/25 16:52: POC Glucose 287 H 01/04/25 21:31: POC Glucose 214 H 01/05/25 05:45: Sodium 137, Potassium 3.8, Chloride 96 L, Carbon Dioxide 28.7, Anion Gap 12, BUN 44 H, Creatinine 1.14, Estim Creat Clear Calc 66.00, Est GFR (MDRD) Non-Af 68, BUN/Creatinine Ratio 38.9 H, Glucose 139 H, Calcium 11.2 H 01/05/25 06:35: POC Glucose 142 H 01/05/25 12:07: POC Glucose 227 H Microbiology: Microbiology 12/30/24 23:55 Urine, Clean Catch Legionella Antigen - Final 12/30/24 23:55 Urine, Clean Catch Streptococcus pneumoniae Antigen (M - Final D/C Instructions Call your doctor if you observe: Fever of 101 or Higher, Shortness of breath, Dizziness, Fainting spells, Swelling in the ankles, Chest pain and Increased palpitations (irregular heartbeat) DC O2, CPAP, BIPAP Needs Home O2 Discharge instructions: No Meaningful Use Info Meaningful Use Meaningful Use Diagnoses (Choose all that apply): None applicable Discharge Plan Admission Admit Date/Time: 12/30/24 18:19 Attending Provider: David Gray Primary Care Provider: Linwood Cowart Consulting Providers: Lius Nieto Instructions Additional Instructions / Restrictions: Follow-up with your primary care doctor to monitor your kidney function since you are being restarted on Lasix. The Lasix had nothing to do with intermittent leg pain or numbness and tingling so would recommend continuing to take this to help your breathing and your heart failure. Discharge Orders/Prescriptions Prescriptions: New furosemide [Lasix] 40 mg tablet 40 mg PO DAILY Qty: 30 0RF Continued cyanocobalamin (vitamin B-12) 1,000 mcg capsule 1,000 mcg PO DAILY spironolactone 25 mg tablet 25 mg PO DAILY acetaminophen 500 mg capsule 500 mg PO Q6H PRN (Reason: fever or pain) insulin glargine [Lantus Solostar U-100 Insulin] 100 unit/mL (3 mL) insulin pen 55 unit subcut QPM cholecalciferol (vitamin D3) 1,250 mcg (50,000 unit) capsule 1,250 mcg PO QWEEK Patient Comments: takes Saturday night tamsulosin [Flomax] 0.4 mg capsule 0.4 mg PO DAILY metformin 500 mg tablet 500 mg PO QDAY Patient Comments: pt states takes it as needed pravastatin 20 mg tablet 20 mg PO DAILY glimepiride 4 mg tablet 4 mg PO DAILY Qty: 60 0RF ferrous sulfate 325 mg (65 mg iron) capsule, extended release 325 mg PO .3 x week (DME) CPAP - Continuous Positive Airway Pressure([facility] INFORMATIONAL USE ONLY) 0 .ROUTE .MEDSUPPLY Patient Comments: autoset metoprolol tartrate 50 mg tablet 50 mg PO BID Qty: 180 3RF warfarin 4 mg tablet 4 mg PO .COMPLEX Qty: 120 3RF Protocol: Dose Management Condition: Saturday Dose/Route: 4 mg Instruction: 1 x 4 mg tablet Condition: Saturday Dose/Route: 2 mg Instruction: 0.5 x 4 mg tablets Condition: Saturday Dose/Route: 2 mg Instruction: 0.5 x 4 mg tablets Condition: Saturday Dose/Route: 2 mg Instruction: 0.5 x 4 mg tablets Condition: Dose/Route: 2 mg Instruction: 0.5 x 4 mg tablets Condition: Saturday Dose/Route: 4 mg Instruction: 1 x 4 mg tablet Condition: Saturday Dose/Route: 4 mg Instruction: 1 x 4 mg tablet Protocol Text: Adjustment Start Date: Saturday11/25/24 INR Value: 2.2 INR Date: 11/25/24 Recheck Date: 12/25/24 Patient Comments: Pt's last INR was 4 and he was directed to take .5 tab Saturday, Saturday, Saturday, , and a full tab Saturday, Saturday, and Saturday. Rx Instructions: 4 mg orally daily except 1/2 tablet (2mg) on , , Saturday; or as directed. Please give 180 tablets for dose changes. Referrals / Follow Up: Geoffrey Cowart, [employer] MACHINE OPERATOR-C [[facility], [facility]] - 01/07/25 9:00 am Disposition Disposition (needs filled in before D/C Order can be placed): Home, Self Care Charges/Coding Visit Charges Inpatient E&M: 03172 Disch Hosp >30min
== END 2025-01-05 15:27 | disposition home or self-care (01) | DRG 291 ==
LOC: ED 16:49 → PCU 19:04
PROVIDERS: Admitting Provider Internal Medicine; Emergency Provider Emergency Medicine; Visit Provider Family Medicine
DX: I13.0 Hypertensive heart and chronic kidney disease with heart failure and stage 1 through stage 4 chronic kidney disease, or unspecified chronic kidney disease (principal); I50.33 Acute on chronic diastolic (congestive) heart failure; J18.9 Pneumonia, unspecified organism; I48.20 Chronic atrial fibrillation, unspecified; I27.20 Pulmonary hypertension, unspecified; Z79.01 Long term (current) use of anticoagulants; E11.22 Type 2 diabetes mellitus with diabetic chronic kidney disease; N18.9 Chronic kidney disease, unspecified; Z79.4 Long term (current) use of insulin; E78.5 Hyperlipidemia, unspecified; Z87.891 Personal history of nicotine dependence; Z79.84 Long term (current) use of oral hypoglycemic drugs; R09.02 Hypoxemia; Z79.899 Other long term (current) drug therapy; Z23 Encounter for immunization; N40.0 Benign prostatic hyperplasia without lower urinary tract symptoms
CPT/HCPCS: 36415; 71046; 80048; 82962; 83880; 84484; 85025; 85610; 85730; 87449; 93005; 94002; 94003; 94640; 97110; 97116; 97162; 97166; 97530; 99285; A4216; J1938

== ENCOUNTER → 2025-01-07 | Outpatient (CLI) | payer MEDICARE, OTHER, SELFPAY ==
[2025-01-07 12:18] LABS: Hematocrit 39.9 % (40-54); Hemoglobin 13.9 g/dL (13.0-16.5); Immature Granulocytes Count 0.050 X10^3/uL (0.0-0.0); Mean Corp Hgb Conc 34.8 g/dL (32-36); Mean Corpuscular Volume 81.4 fL (80-94); Mean Platelet Vol. 11.0 fl (6.2-12.0); NRBC Flagged by Analyzer 0 % (0-5); Platelet Count 250 K/mm3 (150-450); RBC Distribution Width CV 13.3 % (11.6-14.6); RBC Distribution Width SD 39.4 fl (35.1-43.9); Red Blood Count 4.90 M/mm3 (4.6-6.2); White Blood Count 11.5 K/mm3 (4.4-11.0)
[2025-01-07 12:44] LABS: AST(SGOT) 28 U/L (<=37); Alanine Aminotransfer ALT/SGPT 23 U/L (<=46); Albumin, Serum 4.2 g/dL (3.4-4.8); Alkaline Phosphatase 109 U/L (40-129); Anion Gap 16 (5-15); BUN 55 mg/dL (4-19); BUN/Creat Ratio 41.1 RATIO (10-20); Calcium,Total 10.9 mg/dL (7.6-11.0); Carbon Dioxide 24.1 mmol/L (21.0-32.0); Chloride 93 mmol/L (98-108); Globulin 3.9 g/dL (2.2-4.2); Glucose 111 mg/dL (70-99); Potassium 3.9 mmol/L (3.3-5.1)
== END | disposition home or self-care (01) ==
LOC: VSLAB 09:43
DX: I50.9 Heart failure, unspecified (principal)
CPT/HCPCS: 36415; 80053; 85025

== ENCOUNTER 2025-01-29 12:13 | Outpatient (RCR) | payer MEDICARE, OTHER, SELFPAY ==
[2025-01-29 13:05] LABS: Prothrombin Time (Protime)PT. 17.1 SECONDS (11.7-14.9)
[2025-01-29 13:31] LABS: Anion Gap 11 (5-15); BUN 36 mg/dL (4-19); BUN/Creat Ratio 34.0 RATIO (10-20); Calcium,Total 11.1 mg/dL (7.6-11.0); Carbon Dioxide 25.0 mmol/L (21.0-32.0); Chloride 98 mmol/L (98-108); Glucose 220 mg/dL (70-99); Potassium 4.4 mmol/L (3.3-5.1)
== END 2025-01-29 18:00 | disposition home or self-care (01) ==
LOC: LAB 12:13
PROVIDERS: Referring Provider Physician Assistant Medical; Visit Provider Physician Assistant Medical
DX: I48.0 Paroxysmal atrial fibrillation (principal); Z79.01 Long term (current) use of anticoagulants; I35.0 Nonrheumatic aortic (valve) stenosis
CPT/HCPCS: 36415; 80048; 85610